=== PATIENT | female | born 1930 | race Caucasian/White ===

== ENCOUNTER → 2018-01-28 | Outpatient (CLI) | payer MEDICARE ==
[~2018-01-28] MED LIST: AC500T PO; ALBU8.5H2 IH; ALLP100T PO; ALPR-557 PO; ALPR.25T PO; AMLO10TA4 PO; AMLO1CAP31; AMLO5TAB2 PO; ASPI-266 PO; ASPI-587 PO; ASPI-86 PO; CHOL10002 PO; CIPR500T78 PO; CLC500CT PO; DCS100C PO; EZET10TA5; FLUT1DIS26 IH; FLUT1DIS3 IH; FURO20TA4 PO; HYDR-2854 PO; HYDR-2856 PO; HYDR-3583 PO; IBP200T PO; LOSA1TAB20 PO; LOSA50TA6 PO; MAGN250T27 PO; MAGN250T7 PO; MELO15TA14 PO; MULT-974 PO; NF-TRA/ACE PO; OMEP20CA12 PO; PRAV10TA23; PRD20T PO; PRED10TA PO; PRV20T PO; SCR1T1 PO; TRIA15CR TOP; TRIA1CAP4; WRF10T PO; [UNRECOGNIZED DRUG - CODE] PO
== END ==
LOC: RT 03:09
PROVIDERS: ATTEND Internal Medicine
DX: R06.2 Wheezing (principal)
CPT/HCPCS: 94761

== ENCOUNTER → 2018-02-16 | Outpatient (CLI) | payer MEDICARE ==
[~2018-02-16] VITALS: Ht 152.4 cm; Wt 77.6 kg
[~2018-02-16] MED LIST changes: +CATHETER FLUSH 10 ML SYR IV PRN; +REGADENOSON 0.4 MG/5 ML SYR (LEXISCAN) IV ONE
[2018-02-16 09:03] VITALS: BP 128/59
[2018-02-16 09:15] VITALS: BP 153/63
--- NOTE | 2018-02-16 15:47 | STRESS TEST ---
DATE OF SERVICE: 02/16/2018 LEXISCAN MYOVIEW STRESS TEST REPORT Baseline heart rate 63. Baseline blood pressure 128/59. Baseline EKG sinus rhythm with no ischemic changes. In summary, the patient was injected with 10.61 mCi of technetium-99 Myoview and the resting images were obtained. Then, the patient received 0.4 mg of Lexiscan followed by 32.2 mCi of technetium-99 Myoview. Throughout the test, there were no EKG changes. The resting and stress images were reviewed and compared in the short axis, horizontal long axis, and vertical long axis views. Review of the images showed breast attenuation with decreased uptake involving the mid to apical anterior wall and anterior septum with mild reversibility. SSS is 5, SDS 3, TID value 1.06. On the gated images, the left ventricle appeared to be in normal size with normal contractility. Calculated ejection fraction 63%. CONCLUSION: 1. The patient tolerated Lexiscan well. 2. Breast attenuation with mild ischemia involving the mid to apical anterior wall and anterior septum. 3. Normal left ventricular size with normal contractility. Calculated ejection fraction 63%. Job ID: [id number] DocumentID: [id number] Dictated Date: 02/16/2018 15:13:44 [employer] Date: 02/16/2018 15:29:50 Dictated By: ELO HOLBROOK MD
== END ==
LOC: CARD 07:15
PROVIDERS: ATTEND Internal Medicine Cardiovascular Disease
DX: R07.89 Other chest pain (principal); I25.10 Atherosclerotic heart disease of native coronary artery without angina pectoris; E78.5 Hyperlipidemia, unspecified; I10 Essential (primary) hypertension
CPT/HCPCS: 78452; 93017

== ENCOUNTER 2018-03-08 05:34 | Outpatient (CLI) | payer MEDICARE ==
[~2018-03-08] VITALS: Ht 152.4 cm; Wt 77.6 kg
[~2018-03-08 05:34] MED LIST changes: -CATHETER FLUSH 10 ML SYR IV PRN; -REGADENOSON 0.4 MG/5 ML SYR (LEXISCAN) IV ONE
[2018-03-08] MEDS ORDERED: RT-ALBUINH IH (13:40)
[2018-03-08] MEDS ORDERED: ASPI-983 PO (13:40)
[2018-03-08] MEDS ORDERED: ALPR0.5T7 PO (13:40)
[2018-03-08] MEDS ORDERED: AMLO5TAB2 PO (13:40)
[2018-03-08] MEDS ORDERED: MAGN250T13 PO (13:45)
[2018-03-08] MEDS ORDERED: RANI150T90 PO (13:45)
[2018-03-08] MEDS ORDERED: PRAV20TA3 PO (13:45)
[2018-03-08] MEDS ORDERED: FLUT1DIS26 IH (13:45)
[2018-03-08] MEDS ORDERED: LOSA50TA36 PO (13:45)
[2018-03-08] MEDS ORDERED: MELO15TA39 PO (13:45)
[2018-03-15] MEDS ORDERED: PANT40TA2 PO (08:48)
[2018-03-15] MEDS ORDERED: SUCR1TAB36 PO (08:48)
== END 2018-03-08 13:48 ==
LOC: PREOP 05:34
PROVIDERS: ATTEND Surgery
DX: Z01.818 Encounter for other preprocedural examination (principal); K21.9 Gastro-esophageal reflux disease without esophagitis; R13.10 Dysphagia, unspecified

== ENCOUNTER 2018-04-19 05:58 | Outpatient (CLI) | payer MEDICARE ==
[~2018-04-19] VITALS: Ht 152.4 cm; Wt 77.6 kg
[~2018-04-19 05:58] MED LIST changes: +ALPR0.5T7 PO; +ASPI-983 PO; +LOSA50TA36 PO; +MAGN250T13 PO; +MELO15TA39 PO; +PANT40TA2 PO; +PRAV20TA3 PO; +RANI150T90 PO; +RT-ALBUINH IH; +SUCR1TAB36 PO
[2018-04-19] MEDS ORDERED: PANT40TA3 PO (16:23)
== END 2018-04-19 16:25 ==
LOC: PREOP 05:58
PROVIDERS: ATTEND Surgery
DX: Z01.818 Encounter for other preprocedural examination (principal); K25.9 Gastric ulcer, unspecified as acute or chronic, without hemorrhage or perforation

== ENCOUNTER 2018-04-26 09:39 | Day surgery (SDC) | payer MEDICARE ==
[~2018-04-26] VITALS: Ht 152.4 cm; Wt 77.6 kg
[~2018-04-26 09:39] MED LIST changes: +PANT40TA3 PO
--- OUTSIDE RECORDS SUMMARY | 2018-04-26 09:45 | XMS REPORT | Clinical Summary ---
Author Author User, Addep[facility] Organization [facility] Address Unknown Phone Unavailable Allergies, Adverse Reactions, Alerts Allergy Name Reaction Description Start Date Severity Status Provider PERCOCET Gastrointestinal problems, e.g., nausea, vomiting, diarrhea Critical Active Halle Dejesus VIOXX Respiratory problems, e.g., wheezing Critical Active Halle Dejesus CODEINE Gastrointestinal problems, e.g., nausea, vomiting, diarrheavomited up foam 1998 Critical Active Halle Dejesus Conditions or Problems Problem Name Problem Code Onset Date Status Entry Date Provider Comment Standard Description Annotate CHEST PAIN, RECURRENT 786.50 Resolved Halle Dejesus Unspecified chest pain OBESITY 278.00 Resolved Halle Dejesus Obesity, unspecified HYPERCHOLESTEROLEMIA 272.0 Active Halle Dejesus Pure hypercholesterolemia HYPERTENSION 401.1 1989 Refinement Halle Dejesus Benign essential hypertension HYPERTENSION, BENIGN ESSENTIAL, SEVERE 401.1 1989 Refinement Halle Dejesus Benign essential hypertension HYPERTENSION, BENIGN ESSENTIAL, CONTROLLED 401.1 1989 Active Halle Dejesus Benign essential hypertension REACTIVE AIRWAY DISEASE 493.90 Resolved Halle Dejesus Asthma, unspecified TOBACCO USE, QUIT V15.82 Resolved Halle Dejesus Personal history of tobacco use LUMBAGO 724.2 Resolved Halle Dejesus Lumbago ULCER, PEPTIC 533.90 Resolved Halle Dejesus Peptic ulcer of unspecified site, unspecified as acute or chronic, without mention of hemorrhage or perforation, without mention of obstruction BACK STRAIN, LUMBAR 847.2 Resolved Halle Dejesus Lumbar sprain CORONARY ARTERY DISEASE 414.00 Active Halle Dejesus Coronary atherosclerosis of unspecified type of vessel, creek or graft stent LAD 11/25 CHRONIC OBSTRUCTIVE PULMONARY DISEASE 496 Active Halle Dejesus Chronic airway obstruction, not elsewhere classified reversed w/bronchodilator MUSCLE CRAMPS 729.82 Resolved Halle Dejesus Cramp of limb RHABDOMYOLYSIS 728.89 Resolved Halle Dejesus Other disorder of muscle, ligament, and fascia MUSCLE PAIN 729.1 Resolved Halle Dejesus Myalgia and myositis, unspecified CONTUSION 924.9 Resolved Halle Dejesus Contusion of unspecified site RUE CONJUNCTIVITIS 372.30 Resolved Halle Dejesus Conjunctivitis, unspecified EYE PAIN, RIGHT 379.91 Resolved Halle eDjesus Pain in or around eye OTITIS MEDIA 382.9 Resolved Halle Dejesus Unspecified otitis media L>R OM, ACUTE SEROUS 381.01 Resolved Halle Dejesus Acute serous otitis media EAR PAIN, BILATERAL 388.70 Resolved Halle Dejesus Otalgia, unspecified DIZZINESS 780.4 Resolved Halle Dejesus Dizziness and giddiness BRONCHITIS 490 Resolved Halle Dejesus Bronchitis, not specified as acute or chronic COUGH 786.2 Resolved Halle Dejesus Cough SINUS CONGESTION 478.1 Resolved Halle Dejesus Other diseases of nasal cavity and sinuses RHINITIS 472.0 Resolved Halle Dejesus Chronic rhinitis DERMATITIS 692.9 Resolved Halle Dejesus Contact dermatitis and other eczema, unspecified cause left upper back ABDOMINAL PAIN, RECURRENT 789.00 Resolved Halle Dejesus Abdominal pain, unspecified site ASTHMA NOS W/ACUTE EXACERBATION 493.92 Resolved Halle Dejesus Asthma, unspecified with (acute) exacerbation ANKLE PAIN, LEFT 719.47 Resolved Halle Dejesus Pain in joint involving ankle and foot BRONCHITIS 490 Resolved Halle Dejesus Bronchitis, not specified as acute or chronic DYSPNEA 786.09 Active Halle Dejesus Other dyspnea and respiratory abnormality ESOPHAGITIS, ACUTE 530.12 Resolved Halle Dejesus Acute esophagitis DYSPHAGIA 787.2 Resolved Halle Dejesus Dysphagia SINUS CONGESTION 478.1 Resolved Halle Dejesus Other diseases of nasal cavity and sinuses URI 465.9 Resolved Halle Dejesus Acute upper respiratory infections of unspecified site ANXIETY 300.00 Resolved Halle Dejesus Anxiety state, unspecified ABDOMINAL PAIN, ACUTE 789.00 Resolved Halle Dejesus Abdominal pain, unspecified site RENAL INSUFFICIENCY 588.9 Active Halle Dejesus Unspecified disorder resulting from impaired renal function DIVERTICULOSIS, COLON 562.10 Resolved Halle Dejesus Diverticulosis of colon (without mention of hemorrhage) HIP PAIN 719.45 Resolved Halle Dejesus Pain in joint involving pelvic region and thigh left ARTHRITIS V13.4 Active Halle Dejesus Personal history of arthritis BOWEL DISEASE NOS 569.42 Resolved Halle Dejesus Anal or rectal pain DEPRESSION 296.00 Resolved Halle Dejesus Bipolar I disorder, single manic episode, unspecified SCIATICA, LEFT 724.3 Resolved Halle Dejesus Sciatica FUNGAL DERMATITIS 111.9 Resolved Halle Dejesus Dermatomycosis, unspecified ESOPHAGEAL DISORDER 530.9 Resolved Halle Dejesus Unspecified disorder of esophagus FLANK PAIN, RIGHT 789.09 Resolved Halle Dejesus Abdominal pain, other specified site; multiple sites CHEST PAIN 786.5 Resolved Halle Dejesus Chest pain VACCINE AGAINST STREPTOCOCCUS PNEUMONIAE V03.82 Resolved Halle Dejesus Need for prophylactic vaccination against Streptococcus pneumoniae [pneumococcus] OTITIS EXTERNA 380.10 Resolved Halle Dejesus Infective otitis externa, unspecified FACIAL PAIN 784.0 Resolved Halle Dejesus Headache HEADACHE 784.0 Resolved Halle Vicki Dejesus Headache BRONCHITIS 490 Resolved Halle Dejesus Bronchitis, not specified as acute or chronic CONJUNCTIVITIS 372.30 Resolved Halle Dejesus Conjunctivitis, unspecified URINARY FREQUENCY 788.41 Resolved Halle Vicki Dejesus Urinary frequency DIARRHEA, ACUTE 787.91 Resolved Halle Dejesus Diarrhea PNEUMONIA 486 Resolved Halle Dejesus Pneumonia, organism unspecified PLEURISY 511.0 Resolved Halle Dejesus Pleurisy without mention of effusion or current tuberculosis UTI 599.0 Resolved Halle Dejesus Urinary tract infection, site not specified COUGH 786.2 Resolved Halle eDjesus Cough CHEST PAIN, ATYPICAL 786.59 Resolved Halle Dejesus Other chest pain SHOULDER PAIN 719.41 Resolved Halle Dejesus Pain in joint involving shoulder region 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 Halle Dejesus Adhesive capsulitis of shoulder UNSPECIFIED VITAMIN D DEFICIENCY 268.9 Active Halle Dejesus Unspecified vitamin D deficiency DYSPHAGIA PHARYNGOESOPHAGEAL PHASE 787.24 Resolved Halle Dejesus Dysphagia, pharyngoesophageal phase MUSCLE PAIN 729.1 Resolved Halle Dejesus Myalgia and myositis, unspecified GOUT 274.9 Active Halle Dejesus Gout, unspecified GANGLION CYST 727.43 Resolved Halle Dejesus Ganglion, unspecified CANDIDIASIS OF UNSPECIFIED SITE 112.9 Resolved Halle Dejesus Candidiasis of unspecified site KNEE PAIN 719.46 Resolved Halle Dejesus Pain in joint involving lower leg right BENIGN POSITIONAL VERTIGO 386.11 Inactive Halle Dejesus Benign paroxysmal positional vertigo DYSPHAGIA PHARYNGOESOPHAGEAL PHASE 787.24 Resolved Halle Dejesus Dysphagia, pharyngoesophageal phase DYSPNEA 786.09 Active Halle Dejesus Other dyspnea and respiratory abnormality 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 Halle Dejesus Atherosclerosis of creek arteries of the extremities with intermittent claudication URINARY 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 Halle Dejesus Retention of urine, unspecified Medication List Medication Instructions Start Date Stop Date Generic Name ND Status Provider Patient Instruction ALLOPURINOL 100 MG TAB 1 PO BID ALLOPURINOL 14308862029 Active Halle Dejesus PREDNISONE 10 MG TAB 2 PO at one time for 3 days then 1 po daily for 4 days PREDNISONE 36755286577 No Longer Active Jazzmine [place] HYDROXYZINE HCL 25 MG TAB 1 po Q 6 hrs prn HYDROXYZINE HCL 73517401505 Active Jazzmine [place] PREDNISONE 20 MG TAB 2 pills at once for 2 days then 1 pill daily for 5 days PREDNISONE 05994236771 No Longer Active Halle Dejesus MECLIZINE HCL 25 MG TAB 1 PO Q6hrs prn dizziness MECLIZINE HCL 10682075055 No Longer Active Halle Dejesus ATARAX 25 MG TAB 1 po QHS prn itching HYDROXYZINE HCL No Longer Active Halle Dejesus ALLOPURINOL 100 MG TAB 1 PO Daily ALLOPURINOL 44826146503 No Longer Active Halle Dejesus KENALOG 0.1 % CREA apply to affected areas BID TRIAMCINOLONE ACETONIDE No Longer Active Jazzminetrent [place] CALTRATE 600 PLUS-VIT D 600-200 MG-IU TABS 1 PO BID CALCIUM-VITAMIN D Active Halle Dejesus CALCITRIOL 0.25 MCG CAPS 1 PO Daily CALCITRIOL 98669307978 No Longer Active Halle Dejesus TRIAMCINOLONE ACETONIDE 0.1 % CREA Apply daily prn to affected areas TRIAMCINOLONE ACETONIDE 88439615242 No Longer Active Halle Dejesus LORTAB 5 5-500 MG TABS 1 to 2 PO Q6hrs prn ACETAMINOPHEN- HYDROCODONE 95862822214 No Longer Active Halle Dejesus IBUPROFEN 200 MG TAB 2 PO BID PRN IBUPROFEN 79705096853 No Longer Active Halleluz Dejesus TYLENOL 500 MG TABS 1 PO Q6hrs prn ACETAMINOPHEN 30862888451 Active Halle Vicki Dejesus KENALOG 0.1 % CREA apply daily as needed to effected areas 04/03 TRIAMCINOLONE ACETONIDE No Longer Active Halleluz Dejesus HYDROXYZINE HCL 10 MG TABS 1 PO QHS prn itching HYDROXYZINE HCL 56190847389 No Longer Active Halle Vicki Dejesus ZETIA 10 MG TABS 1 PO QD EZETIMIBE 03710988902 No Longer Active Halle Vicki Dejesus NYSTATIN 334984 UNIT/GM POWD Apply to affected areas BID over cream. NYSTATIN 26830016215 No Longer Active Halle Vicki Dejesus NYSTATIN 328697 UNIT/GM CREA Apply to affected areas BID and apply powder over cream. NYSTATIN 12374938150 No Longer Active Halleluz Dejesus TESSALON 200 MG CAPS 1 PO TID prn cough BENZONATATE 57230341429 No Longer Active Halleluz Dejesus AUGMENTIN 500-125 MG TAB 1 PO BID AMOXICILLIN-POT CLAVULANATE 75175148991 No Longer Active Halleluz Dejesus OMEPRAZOLE 20 MG CPDR 1 PO daily OMEPRAZOLE 56447580807 Active Jazzmine [place] COZAAR 50 MG TAB 1 po daily [place] POTASSIUM 08072288005 Active Jazzmine [place] TRIAMTERENE-HCTZ 37.5-25 MG CAPS 1 cap po daily TRIAMTERENE- HCTZ 24644399588 No Longer Active Halle Vicki Dejesus LASIX 20 MG TAB 1 PO QD prn swelling FUROSEMIDE 85449204810 Active Halle Vicki Dejesus MUCINEX 600 MG TB12 1 PO BID for 5 days GUAIFENESIN 92052891706 No Longer Active Halle Vicki Dejesus PREDNISONE 20 MG TAB 2 pills at once for 2 days then 1 pill daily for 2 days PREDNISONE 00197900320 No Longer Active Halle Vicki Dejesus BIAXIN 500 MG TAB 1 PO BID CLARITHROMYCIN 45782547680 No Longer Active Halle Vicki Dejesus ADVAIR DISKUS 250-50 MCG/DOSE MISC 1 puff BID FLUTICASONE- SALMETEROL 57204766124 Active Halle Vicki Dejesus PROAIR HFA 108 (90 BASE) MCG/ACT AERS 2 puff Q4 hrs prn wheezing ALBUTEROL SULFATE 93465231109 Active Halle Vicki Dejesus OMEPRAZOLE 20 MG CPDR 1 PO daily OMEPRAZOLE 03055434354 No Longer Active Halle Vicki Dejesus ULTRAM 50 MG TAB 1 PO TID with meal TRAMADOL HCL 18953380199 No Longer Active Halle Vicki Dejesus LORTAB 5 5-500 MG TABS 1 PO QHS ACETAMINOPHEN- HYDROCODONE 00048018686 No Longer Active Halle Vicki Dejesus DARVON 65 MG CAPS 1 PO Q6hrs prn Pain PROPOXYPHENE HCL 94691314071 No Longer Active Halle Vicki Dejesus PREDNISONE 20 MG TAB 2 pills at once for 2 days then 1 pill daily for 2 days PREDNISONE 80962172576 No Longer Active Halle Vicki Dejesus MOBIC 15 MG TABS 1 PO Daily MELOXICAM 82691689281 Active Jazzmine [place] PREDNISONE 20 MG TAB 2 pills at once for 2 days then 1 pill daily for 2 days PREDNISONE 33115298744 No Longer Active Halle Vicki Dejesus AUGMENTIN 500-125 MG TAB 1 PO BID AMOXICILLIN-POT CLAVULANATE 43788896959 No Longer Active Halle Vicki Dejesus TESSALON 200 MG CAPS 1 PO TID prn cough BENZONATATE 39862125145 No Longer Active Halleluz HA[employer]ES[employer] NASAL SPRAY (DEXAMETHASONE, GENTAMICIN, SALINE) 2 puffs each nostril TID for [address] FARFAN NASAL SPRAY ( DEXAMETHASONE, GENTAMICIN, SALINE) No Longer Active Halleluz Dejesus MUCINEX 600 MG TB12 1 PO BID for 5 days GUAIFENESIN 49060631548 No Longer Active Halle Vicki Dejesus BIAXIN 500 MG TAB 1 PO BID CLARITHROMYCIN 43379988212 No Longer Active Halleluz Dejesus LOTRISONE 0.05-1 % CREAM apply to affected areas BID CLOTRIMAZOLE-BETAMETHASONE 05086203504 No Longer Active Halle Vicki Dejesus KENALOG 0.1 % CREA apply to affected areas BID TRIAMCINOLONE ACETONIDE No Longer Active Halleluz Dejesus VITAMIN D 1000 UNIT CAPS 1 PO Daily CHOLECALCIFEROL 24870227130 Active Halleluz Dejesus PYRIDIUM 200 MG TAB 1 PO TID prn urinary urgency PHENAZOPYRIDINE HCL 11463716052 No Longer Active Halle Dejesus CIPRO 250 MG TABS 1 PO BID CIPROFLOXACIN HCL 46426375381 No Longer Active Halleluz Dejesus HYCODAN 5-1.5 MG/5ML SYRP 1 teaspoon PO Q6hrs prn cough HYDROCODONE-HOMATROPINE 22694794890 No Longer Active Halleluz Dejesus IMODIUM A-D TABS as directed LOPERAMIDE HCL TABS 26763822769 No Longer Active Halleluz Dejesus HYDROCODONE-GG EXPECTORANT 5-100 MG/5ML SYRP 1 teaspoon PO Q4hrs prn cough HYDROCODONE-GUAIFENESIN 94060031421 No Longer Active Halle Vicki Dejesus FISH OIL 1000 MG CAPS 1 po daily OMEGA-3 FATTY ACIDS 23803079050 No Longer Active Halle Vicki Dejesus TESSALON 200 MG CAPS 1 PO TID prn cough BENZONATATE 17812039333 No Longer Active Halle Vicki Dejesus BIAXIN 500 MG TAB 1 PO BID for 7 days CLARITHROMYCIN 68522281765 No Longer Active Halle Vicki Dejesus PYRIDIUM 200 MG TABS 1 PO TID PHENAZOPYRIDINE HCL 13438433723 No Longer Active Linda Tarik CIPRO 250 MG TABS 1 PO daily CIPROFLOXACIN HCL 30821260484 No Longer Active Linda Montanez FLOXIN OTIC 0.3 % SOLN 2 drops right eye Q6hrs for 7 days OFLOXACIN 66598851789 No Longer Active Halle Vicki Dejesus TESSALON 200 MG CAPS 1 PO TID prn cough BENZONATATE 22546908629 No Longer Active Halle Vicki Dejesus BIAXIN XL PAC 500 MG TB24 2 pills at same time daily for 7 days CLARITHROMYCIN 30559811968 No Longer Active Halle Vicki Dejesus ALPRAZOLAM 0.25 MG TABS 1 po q 6 hrs. prn ALPRAZOLAM 45911133233 Active Halle Vicki Dejesus OCUFLOX 0.3 % SOLN 2 drops left ear TID for 7 days OFLOXACIN 17230826965 No Longer Active Halle Vicki Dejesus BENAZEPRIL HCL 10 MG TABS 1 PO daily BENAZEPRIL HCL 18621242688 No Longer Active Jazzmine [place] NORVASC 5 MG TAB 1 PO QD AMLODIPINE BESYLATE 33536484370 Active Jazzmine [place] ADVAIR DISKUS 250-50 MCG/DOSE MISC 1 Puff BID FLUTICASONE-SALMETEROL 14370367077 No Longer Active Halle Vicki Dejesus ALPRAZOLAM 0.25 MG TABS 1 po q 6 hrs. prn ALPRAZOLAM 96139980299 No Longer Active Halle Vicki Dejesus LORTAB 5 5-500 MG TABS 1 to 2 PO Q6hrs prn ACETAMINOPHEN-HYDROCODONE 98378195950 No Longer Active Halle Vicki Dejesus FLUOCINONIDE 0.05 % CREA Apply to affected areas BID for 7 days FLUOCINONIDE 70471440079 No Longer Active Halle Vicki Dejesus KETOCONAZOLE 2 % CREA Apply to affected areas BID for 7 days 2006 KETOCONAZOLE 83283996000 No Longer Active Halle Vicki Dejesus XANAX 0.25 MG TABS 1 tab PO prn ALPRAZOLAM 38303132307 No Longer Active Halle Vicki Dejesus KCL HERBAL 7.3 MEQ 1 PO QD OTC KCL HERBAL 7.3 MEQ No Longer Active Halle Vicki Dejesus PRAVACHOL 20 MG TABS 1 PO daily PRAVASTATIN SODIUM 74550866542 Active Jazzminetrent GONGAIR DISKUS 100-50 MCG/DOSE MISC 1 puff bid prn FLUTICASONE-SALMETEROL 68041490061 No Longer Active Halleluz Dejesus NEXIUM 40 MG CPDR ESOMEPRAZOLE MAGNESIUM 19586316970 No Longer Active Halleluz Dejesus ALBUTEROL SULFATE FOR SOLN 1 TX Q6hrs prn ALBUTEROL SULFATE FOR SOLN 13208299353 No Longer Active Halle Vicki Dejesus PROTONIX 40 MG TBEC 1 po qd PANTOPRAZOLE SODIUM 11325312251 No Longer Active Halle Vicki Dejesus CARAFATE 1 GM TABS 1 po 1 hr before meals, 2hr before other meds, and at bedtime SUCRALFATE 57943855978 No Longer Active Halle Vicki Dejesus PREDNISONE 20 MG TABS 3 for 2 days, 2 for 2 days, 1 for 2 days PREDNISONE 97703202081 No Longer Active Halle Vicki Dejesus NEXIUM 40 MG CPDR 1 PO QD ESOMEPRAZOLE MAGNESIUM 40442528491 No Longer Active Halle Vicki Dejesus ADVAIR DISKUS 250-50 MCG/DOSE MISC 1 puff BID FLUTICASONE-SALMETEROL 61410697506 No Longer Active Halle Vicki Dejesus DOXYCYCLINE HYCLATE 100 MG CAPS 1 po BID DOXYCYCLINE HYCLATE 17999968532 No Longer Active Halle Vicki Dejesus ASPIRIN 81 MG CHEW TAB 1 PO QD ASPIRIN 18950713078 Active Halle Vicki Dejesus CODICLEAR DH 5-100 MG/5ML SYRP 5 cc q 4-6 hrs. prn HYDROCODONE-GUAIFENESIN 19915723902 No Longer Active Halle Vicki Dejesus PALGIC 4 MG TABS 1 po daily CARBINOXAMINE MALEATE 51121438018 No Longer Active Halle Vicki Dejesus NASONEX 50 MCG/ACT SUSP 1 squirt daily each nostril MOMETASONE FUROATE 17849913914 No Longer Active Halle Vicki Dejesus CALCIUM 600 MG TABS 1 po BID CALCIUM 78402549592 No Longer Active Halle Vicki Dejesus CEFZIL 250 MG TAB 1 PO BID CEFPROZIL 08900171472 No Longer Active Halle Vicki Dejesus TOBREX 0.3 % OINT Q4hrs TOBRAMYCIN SULFATE (OPHTH) 78765412567 No Longer Active Halle Vicki Dejesus PROTONIX 40 MG TBEC 1 po qd PANTOPRAZOLE SODIUM 52065347568 No Longer Active Halle Vicki Dejesus PLAVIX 75 MG TABS CLOPIDOGREL BISULFATE 97221611229 No Longer Active Halle Vicki Dejesus LOTREL 5-10 MG CAP 1 PO QD AMLODIPINE BESY-BENAZEPRIL HCL 28960631480 No Longer Active Jazzmine [place] PRAVACHOL 40 MG TABS PRAVASTATIN SODIUM 67991583965 No Longer Active Halle Vicki Dejesus NORVASC 5 MG TAB 1 PO QD AMLODIPINE BESYLATE 08735147434 No Longer Active Halle Vicki Dejesus DILTIAZEM HCL CR 180 MG CP24 DILTIAZEM HCL 69688861211 No Longer Active Halle Vicki Dejesus LIPITOR 20 MG TABS 1 po daily ATORVASTATIN CALCIUM 47648172038 No Longer Active Halle Vicki Dejesus NEXIUM 40 MG CPDR 1 PO QD(30 samples) ESOMEPRAZOLE MAGNESIUM 74654023916 No Longer Active Halle Vicki Dejesus PROTONIX 40 MG TBEC 1 po daily PANTOPRAZOLE SODIUM 91536991739 No Longer Active Halle Vicki Dejesus IBUPROFEN 200 MG TABS 2-3 tabs at HS IBUPROFEN 07710721465 No Longer Active Halle Vicki Dejesus SINGULAIR 10 MG TABS pt. no longer takes MONTELUKAST SODIUM 56903097419 No Longer Active Halle Vicki Dejesus COMBIVENT 103-18 MCG/ACT AERO pt. no longer takes ALBUTEROL-IPRATROPIUM 68175695505 No Longer Active Halle Vicki Dejesus FLEXERIL 10 MG TAB 1 PO TID prn CYCLOBENZAPRINE HCL 70641467079 No Longer Active Halle Vicki Dejesus DILAUDID 2 MG TABS 1 PO BID prn HYDROMORPHONE HCL 58569223561 No Longer Active Halle Vicki Oleg MULTIVITAMINS TABS 1 po daily (weight control) MULTIPLE VITAMIN 86198294447 Active Halle Deejsus Immunizations Vaccine Administration Date Value Standard Description Comvax, combined Hemophilus influenza B and Hepatitis B virus vaccine Done Haemophilus influenzae type b conjugate and Hepatitis B vaccine Influenza vaccine given done influenza virus vaccine, unspecified formulation Influenza vaccine given DONE influenza virus vaccine, unspecified formulation pneumococcal immunization administered Has had 2 doses pneumococcal polysaccharide vaccine, 23 valent Vital Signs Date Name Value Unit Range Description blood pressure, diastolic - 8462-4 74 mm[Hg] BP liao blood pressure, systolic - 8480-6 156 mm[Hg] BP sys pulse rate E&M - 8867-4 72 /min Heart rate respiratory rate E&M - 9279-1 14 /min Resp rate temperature E&M 98.6 [degF] Body temperature weight E&M - 3141-9 184 [lb_av] Weight Measured blood pressure, diastolic - 8462-4 79 mm[Hg] BP liao blood pressure, systolic - 8480-6 145 mm[Hg] BP sys height E&M - 8302-2 62 [in_us] Bdy height pulse rate E&M - 8867-4 78 /min Heart rate respiratory rate E&M - 9279-1 14 /min Resp rate temperature E&M 98.6 [degF] Body temperature weight E&M - 3141-9 181 [lb_av] Weight Measured blood pressure, diastolic - 8462-4 80 mm[Hg] BP liao blood pressure, systolic - 8480-6 130 mm[Hg] BP sys pulse rate E&M - 8867-4 74 /min Heart rate respiratory rate E&M - 9279-1 14 /min Resp rate weight E&M - 3141-9 180 [lb_av] Weight Measured blood pressure, diastolic - 8462-4 82 mm[Hg] BP liao blood pressure, systolic - 8480-6 140 mm[Hg] BP sys pulse rate E&M - 8867-4 78 /min Heart rate respiratory rate E&M - 9279-1 14 /min Resp rate temperature E&M 98.6 [degF] Body temperature weight E&M - 3141-9 185 [lb_av] Weight Measured blood pressure, diastolic - 8462-4 74 mm[Hg] BP liao blood pressure, systolic - 8480-6 132 mm[Hg] BP sys pulse rate E&M - 8867-4 70 /min Heart rate respiratory rate E&M - 9279-1 14 /min Resp rate weight E&M - 3141-9 182 [lb_av] Weight Measured Diagnostic Results Date Name Value Unit Range Description Clinical Lists Update: CBC,CMP,Chol,Trig,Ferritin - Chemistry Estimated Glomerular Filtration Rate (calc) 27 mL/min/1.73m2 glucose, plasma fasting 99 mg/dL albumin, serum 4.0 g/dL alkaline phosphatase, serum 95 U/L urea nitrogen, blood 43 mg/dL calcium, serum 9.2 mg/dL chloride, serum 108 mmol/L cholesterol, serum 179 mg/dL carbon dioxide, venous blood 25.0 mmol/L creatinine, serum 1.9 mg/dL ferritin, serum 21.9 ng/mL potassium, serum 5.5 mmol/L protein, total, serum 6.3 g/dL aspartate aminotransferase (SGOT), serum 14 U/L alanine aminotransferase (SGPT), serum 10 U/L anion gap, serum 13 sodium, serum 134 mmol/L triglyceride, serum, fasting 156 mg/dL bilirubin, serum, total 0.8 mg/dL alanine aminotransferase (SGPT), serum 12 U/L aspartate aminotransferase (SGOT), serum 20 U/L protein, total, serum 6.8 g/dL potassium, serum 5.2 mmol/L ferritin, serum 24.3 ng/mL creatinine, serum 1.9 mg/dL carbon dioxide, venous blood 21.0 mmol/L cholesterol, serum 197 mg/dL chloride, serum 105 mmol/L calcium, serum 9.3 mg/dL urea nitrogen, blood 35 mg/dL alkaline phosphatase, serum 101 U/L albumin, serum 4.3 g/dL Estimated Glomerular Filtration Rate (calc) 27 mL/min/1.73m2 glucose, plasma fasting 92 mg/dL anion gap, serum 12 sodium, serum 139 mmol/L triglyceride, serum, fasting 145 mg/dL bilirubin, serum, total 0.8 mg/dL Clinical Lists Update: CBC,CMP,Chol,Trig,Ferritin - Hematology leukocyte count, blood 6.1 10*3/mm3 mean corpuscular volume, RBC 85 fL red blood cell distribution width 15.8 % hemoglobin, blood 10.1 g/dL platelet count 308 10*3/mm3 erythrocyte (RBC) count 3.91 10*6/mm3 hematocrit, blood 32 % mean corpuscular volume, RBC 82 fL red blood cell distribution width 15.5 % hematocrit, blood 33 % hemoglobin, blood 10.1 g/dL platelet count 304 10*3/mm3 erythrocyte (RBC) count 3.85 10*6/mm3 leukocyte count, blood 7.3 10*3/mm3 Clinical Lists Update: CBC,CMP,FLP DISCHARGE LABS - Chemistry Estimated Glomerular Filtration Rate (calc) 26 mL/min/1.73m2 glucose, plasma fasting 93 mg/dL albumin, serum 3.6 g/dL alkaline phosphatase, serum 93 U/L urea nitrogen, blood 39 mg/dL calcium, serum 9.0 mg/dL chloride, serum 110 mmol/L cholesterol, serum 171 mg/dL very low density lipoproteins 30 mg/dL sodium, serum 140 mmol/L triglyceride, serum, fasting 148 mg/dL bilirubin, serum, total 0.5 mg/dL alanine aminotransferase (SGPT), serum 12 U/L aspartate aminotransferase (SGOT), serum 14 U/L protein, total, serum 5.9 g/dL potassium, serum 4.7 mmol/L LDL cholesterol, serum 98 mg/dL HDL cholesterol, serum 47 mg/dL creatinine, serum 1.85 mg/dL carbon dioxide, venous blood 22 mmol/L Clinical Lists Update: CBC,CMP,FLP DISCHARGE LABS - Hematology hemoglobin, blood 8.4 g/dL platelet count 267 10*3/mm3 erythrocyte (RBC) count 3.16 10*6/mm3 leukocyte count, blood 9.6 10*3/mm3 mean corpuscular volume, RBC 83 fL red blood cell distribution width 15.0 % hematocrit, blood 26 % Clinical Lists Update: CBC,CMP,FLP,TSH,FREE T4,FERRITIN - Chemistry Estimated Glomerular Filtration Rate (calc) 29 mL/min/1.73m2 glucose, plasma fasting 103 mg/dL cholesterol/HDL ratio, serum, percent 3.5 anion gap, serum 12 sodium, serum 139 mmol/L triglyceride, serum, fasting 144 mg/dL bilirubin, serum, total 0.6 mg/dL alanine aminotransferase (SGPT), serum 11 U/L aspartate aminotransferase (SGOT), serum 15 U/L protein, total, serum 6.6 g/dL potassium, serum 4.8 mmol/L LDL cholesterol, serum 90 mg/dL thyroid stimulating hormone, serum 3.66 u[iU]/mL HDL cholesterol, serum 48.0 mg/dL ferritin, serum 47.1 ng/mL creatinine, serum 1.8 mg/dL carbon dioxide, venous blood 26.0 mmol/L cholesterol, serum 167 mg/dL chloride, serum 106 mmol/L calcium, serum 9.3 mg/dL urea nitrogen, blood 40 mg/dL alkaline phosphatase, serum 92 U/L albumin, serum 4.1 g/dL Clinical Lists Update: CBC,CMP,FLP,TSH,FREE T4,FERRITIN - Hematology hemoglobin, blood 10.1 g/dL red blood cell distribution width 15.2 % mean corpuscular volume, RBC 87 fL hematocrit, blood 34 % leukocyte count, blood 6.1 10*3/mm3 erythrocyte (RBC) count 3.86 10*6/mm3 platelet count 271 10*3/mm3 Clinical Lists Update: ER LABS - Chemistry albumin, serum 3.9 g/dL Estimated Glomerular Filtration Rate (calc) 28 mL/min/1.73m2 glucose, plasma fasting 106 mg/dL sodium, serum 134 mmol/L bilirubin, serum, total 1.0 mg/dL alanine aminotransferase (SGPT), serum 9 U/L aspartate aminotransferase (SGOT), serum 15 U/L alkaline phosphatase, serum 99 U/L urea nitrogen, blood 44 mg/dL calcium, serum 8.9 mg/dL carbon dioxide, venous blood 17 mmol/L creatinine, serum 1.73 mg/dL potassium, serum 4.9 mmol/L protein, total, serum 7.1 g/dL chloride, serum 107 mmol/L Clinical Lists Update: ER LABS - Hematology hemoglobin, blood 10.1 g/dL platelet count 293 10*3/mm3 erythrocyte (RBC) count 3.85 10*6/mm3 leukocyte count, blood 10.9 10*3/mm3 mean corpuscular volume, RBC 82 fL red blood cell distribution width 14.7 % hematocrit, blood 32 % Clinical Lists Update: ER LABS - Urinalysis blood in urine (hemoglobin) by dipstick 5+ mucus on urinalysis neg bacteria, urine microscopy Large RBC urine by microscopy none WBC urine on microscopy TNTC {Cells}/[HPF] appearance, urine Clear Yellow protein, urine, semiquantitative (dipstick) 3+ specific gravity, urine 1.015 pH, urine, semiquantitative 5 nitrite, urine, semiquantitative neg ketones, urine, by test strip neg bilirubin, urine neg glucose, urine, semiquantitative neg urobilinogen, urine, semiquantitative (dipstick) normal Office Visit: Dr Dejesus's Check Up: Established Patient Visit - Chemistry anion gap, serum 12 albumin, serum 4.1 g/dL Estimated Glomerular Filtration Rate (calc) 24 mL/min/1.73m2 sodium, serum 135 mmol/L bilirubin, serum, total 0.8 mg/dL alanine aminotransferase (SGPT), serum 11 U/L aspartate aminotransferase (SGOT), serum 15 U/L protein, total, serum 6.6 g/dL potassium, serum 4.9 mmol/L creatinine, serum 2.1 mg/dL carbon dioxide, venous blood 23.0 mmol/L chloride, serum 105 mmol/L calcium, serum 8.9 mg/dL urea nitrogen, blood 40 mg/dL alkaline phosphatase, serum 96 U/L glucose, plasma fasting 76 mg/dL Office Visit: Dr Dejesus's Check Up: Established Patient Visit - Hematology leukocyte count, blood 9.0 10*3/mm3 mean corpuscular volume, RBC 84 fL red blood cell distribution width 14.7 % erythrocyte (RBC) count 3.83 10*6/mm3 erythrocyte sedimentation rate 22 mm/h hematocrit, blood 32 % hemoglobin, blood 10.1 g/dL platelet count 273 10*3/mm3 Office Visit: Dr Dejesus'meg Check Up: Established Patient Visit - Urinalysis blood in urine (hemoglobin) by dipstick neg protein, urine, semiquantitative (dipstick) neg epithelial cells, urine 0-2 /[LPF] hyaline casts, urine none /[LPF] bacteria, urine microscopy trace RBC urine by microscopy none WBC urine on microscopy rare {Cells}/[HPF] appearance, urine Clear Yellow urobilinogen, urine, semiquantitative (dipstick) 0.2 specific gravity, urine 1.010 pH, urine, semiquantitative 5.0 glucose, urine, semiquantitative neg bilirubin, urine neg ketones, urine, by test strip neg nitrite, urine, semiquantitative neg mucus on urinalysis none Encounters Code Encounter Date Provider Facility CPT-85304 Ofc Vst, Est Level III 17:17:59 CDT Halle Dejesus DO, FACP CPT-94306 Ofc Vst, Est Level IV 16:44:01 CDT Halle Dejesus DO, FACP CPT-30604 Ofc Vst, Est Level IV 09:56:06 TUMBLING MACHINE OPERATOR Halle Dejesus DO, FACP CPT-68753 Ofc Vst, Est Level III 11:26:10 CDT Halle Dejesus DO, FACP CPT-68104 Ofc Vst, Est Level III 19:58:58 TUMBLING MACHINE OPERATOR Halle Dejesus DO, FACP CPT-73173 Ofc Vst, Est Level III 21:42:42 CDT Halle Dejesus DO, FACP CPT-51060 Ofc Vst, Est Level III 15:59:11 CDT Halle Dejesus DO, FACP CPT-12657 Ofc Vst, Est Level IV 14:48:01 CDT Halle Dejesus DO, FACP CPT-35186 Ofc Vst, Est Level IV 11:08:03 CDT Halle BRADY CPT-93165 Ofc Vst, Est Level IV 11:21:10 CDT Halle Dejesus DO, FACP CPT-98440 Ofc Vst, Est Level IV 14:27:00 TUMBLING MACHINE OPERATOR Halle Mcmillan Dejesus, DO, FACP CPT-11465 Ofc Vst, Est Level IV 11:07:58 TUMBLING MACHINE OPERATOR Halle Mcmillan Dejesus, DO, FACP CPT-42021 Ofc Vst, Est Level III 15:51:12 CDT Halle Vicki Mcmillan Dejesus, DO, FACP CPT-68514 Ofc Vst, Est Level IV 10:19:24 CDT Halle Vicki Mcmillan Dejesus, DO, FACP CPT-07702 Ofc Vst, Est Level III 11:03:07 CDT Halle Vicki Mcmillan Dejesus, DO, FACP CPT-27989 Ofc Vst, Est Level IV 11:41:49 CDT Halle Vicki Mcmillan Oleg, DO, FACP CPT-25481 Ofc Vst, Est Level IV 10:18:48 TUMBLING MACHINE OPERATOR Halle Mcmillan Dejesus, DO, FACP CPT-82460 Ofc Vst, Est Level IV 10:17:36 CDT Halleluz Mcmillan Dejesus, DO, FACP CPT-20905 Ofc Vst, Est Level IV 14:36:16 CDT Halle Mcmillan Oleg, DO, FACP CPT-82108 Ofc Vst, Est Level IV 14:47:06 CDT Halle Vicki Mcmillan Dejesus, DO, FACP CPT-75726 Ofc Vst, Est Level IV 16:08:37 TUMBLING MACHINE OPERATOR Halle Dejesus [facility] CPT-63178 Ofc Vst, Est Level IV 09:58:23 TUMBLING MACHINE OPERATOR Halle Mcmillan Dejesus, DO, FACP CPT-95856 Ofc Vst, Est Level IV 09:30:43 TUMBLING MACHINE OPERATOR Halle Vicki Dejesus Halle S Dejesus, DO, FACP CPT-88284 Ofc Vst, Est Level V 14:50:31 CDT Halle Vicki Mcmillan Dejesus, DO, FACP CPT-46359 Ofc Vst, Est Level III 11:07:34 CDT Halle Vicki Mcmillan Dejesus, DO, FACP CPT-21116 Ofc Vst, Est Level IV 10:37:31 CDT Halle Vicki Mcmillan Dejesus, DO, FACP CPT-61660 Ofc Vst, Est Level IV 09:30:05 CDT Halle Vicki Mcmillan Dejesus, DO, FACP CPT-67395 Ofc Vst, Est Level IV 11:09:58 CDT Halle Vicki Mcmillan Oleg, DO, FACP CPT-33822 Ofc Vst, Est Level IV 10:11:39 TUMBLING MACHINE OPERATOR Halle Vicki Mcmillan Oleg, DO, FACP CPT-91305 Ofc Vst, Est Level V 16:06:45 TUMBLING MACHINE OPERATOR Halle Vicki Mcmillan Dejesus, DO, FACP CPT-11960 Ofc Vst, Est Level III 13:06:05 TUMBLING MACHINE OPERATOR Halle Mcmillan Dejesus, DO, FACP CPT-21011 Ofc Vst, Est Level III 15:24:44 TUMBLING MACHINE OPERATOR Halle Vicki Mcmillan Oleg, DO, FACP CPT-25131 Ofc Vst, Est Level IV 09:38:45 CDT Halle Vicki Mcmillan Oleg, DO, FACP CPT-77525 Ofc Vst, Est Level III 10:07:58 CDT Halle Vicki Neri S Oleg, DO, FACP CPT-02461 Ofc Vst, Est Level IV 09:50:32 CDT Halle Vicki Mcmillan Oleg, DO, FACP CPT-02075 Ofc Vst, Est Level III 13:45:05 TUMBLING MACHINE OPERATOR Halle Dejesus, DO, FACP CPT-57277 Ofc Vst, Est Level IV 09:38:56 TUMBLING MACHINE OPERATOR Halle Dejesus, DO, FACP CPT-12903 Ofc Vst, Est Level III 10:21:38 CDT Halle Vicki Dejesus, DO, FACP CPT-83073 Ofc Vst, Est Level IV 11:47:09 CDT Halle Vicki Dejesus, DO, FACP CPT-96240 Ofc Vst, Est Level III 13:52:46 CDT Halle Dejesus [facility] CPT-08142 Ofc Vst, Est Level IV 09:24:43 CDT Halle Dejesus [facility] CPT-96210 Ofc Vst, Est Level III 10:45:34 TUMBLING MACHINE OPERATOR Halle Dejesus [facility] CPT-89047 Ofc Vst, Est Level III 09:22:58 TUMBLING MACHINE OPERATOR Halle Dejesus [facility] CPT-24323 Ofc Vst, Est Level III 09:24:03 TUMBLING MACHINE OPERATOR Halle Dejesus [facility] CPT-32947 Ofc Vst, Est Level IV 11:31:52 TUMBLING MACHINE OPERATOR Halle Dejesus [facility] CPT-26966 Ofc Vst, Est Level IV 10:30:21 CDT Halle Dejesus [facility] CPT-35987 Ofc Vst, Est Level IV 10:59:46 TUMBLING MACHINE OPERATOR Halle Dejesus [facility] CPT-66747 Ofc Vst, Est Level IV 12:01:57 TUMBLING MACHINE OPERATOR Halle Dejesus [facility] CPT-19821 Ofc Vst, Est Level IV 09:33:58 CDT Halle Dejesus [facility] CPT-51018 Ofc Vst, Est Level IV 10:43:46 CDT Halle Dejesus [facility] CPT-27552 Ofc Vst, Est Level IV 09:35:52 CDT Halle Dejesus [facility] CPT-42859 Ofc Vst, Est Level IV 12:18:01 TUMBLING MACHINE OPERATOR Halle Dejesus [facility] CPT-48051 Ofc Vst, Est Level III 17:51:31 TUMBLING MACHINE OPERATOR Halle Dejesus [facility] CPT-15881 Ofc Vst, Est Level IV 12:10:07 TUMBLING MACHINE OPERATOR Halle Dejesus [facility] CPT-42457 Ofc Vst, Est Level IV 12:44:30 TUMBLING MACHINE OPERATOR Halle Dejesus [facility] CPT-28426 Ofc Vst, Est Level IV 11:19:06 TUMBLING MACHINE OPERATOR Halle Dejesus [facility] CPT-44220 Ofc Vst, Est Level IV 17:39:18 TUMBLING MACHINE OPERATOR Halle Dejesus [facility] CPT-55205 Ofc Vst, Est Level IV 18:49:33 TUMBLING MACHINE OPERATOR Halle Dejesus [facility] CPT-63730 Ofc Vst, Est Level III 13:03:17 CDT Halle Dejesus [facility] CPT-56132 Ofc Vst, Est Level III 11:18:41 CDT Halle Dejesus [facility] CPT-16902 Ofc Vst, Est Level III 18:35:23 CDT Halle Dejesus [facility] CPT-01794 Ofc Vst, Est Level III 17:35:56 CDT Halle Dejesus [facility] CPT-48110 Ofc Vst, Est Level III 14:32:00 CDT Halle Dejesus [facility] CPT-21259 Ofc Vst, Est Level III 09:50:07 CDT Halle Dejesus [facility] CPT-15909 Ofc Vst, Est Level III 10:22:24 CDT Halle Dejesus [facility] CPT-57908 Ofc Vst, Est Level III 10:40:[address] [facility] CPT-38250 Ofc Vst, Est Level III 10:02:24 TUMBLING MACHINE OPERATOR Halle Dejesus [facility] CPT-62296 Ofc Vst, Est Level III 13:01:39 TUMBLING MACHINE OPERATOR Halle Dejesus [facility] CPT-74307 Ofc Vst, Est Level II 10:46:54 TUMBLING MACHINE OPERATOR Halle Dejesus [facility] CPT-96625 Ofc Vst, New Level IV 11:39:11 TUMBLING MACHINE OPERATOR Halle Dejesus [facility] Procedures Code Procedure Name Date Entry Date Standard Description CPT-G0439 Medicare Annual Wellness Visit 15:48:34 CDT CPT-G8446 E-Prescribing not done due to controlled substance 16:53 :03 CDT CPT-G0439 Medicare Annual Wellness Visit 16:53:03 CDT CPT-G8443 E-Prescribing Medication Sent 19:58:58 TUMBLING MACHINE OPERATOR CPT-G8445 E-Prescribing Not sent due to no medication given 21:42: 42 CDT CPT-G8445 E-Prescribing Not sent due to no medication given 15:59: 11 CDT CPT-G8445 E-Prescribing Not sent due to no medication given 14:48: 01 CDT CPT-93720 Injection, Pneumovax 15:32:21 TUMBLING MACHINE OPERATOR CPT-G8445 E-Prescribing Not sent due to no medication given 13:27: 30 TUMBLING MACHINE OPERATOR CPT-G0438 Medicare Annual Wellness Visit Initial 13:27:30 TUMBLING MACHINE OPERATOR CPT-8446 E-Prescribing not done due to controlled substance 11:09: 58 CDT CPT-45837 Injection, Pneumovax 10:21:38 CDT CPT-61981 EKG w/ Interpretation 08:47:25 TUMBLING MACHINE OPERATOR
[2018-04-26] MEDS ORDERED: LACTATED RINGERS 1,000 ML IV STA (09:46)
[2018-04-26] MEDS ORDERED: LACTATED RINGERS 1,000 ML IV ONE (09:48)
--- OUTSIDE RECORDS SUMMARY | 2018-04-26 09:50 | XMS REPORT | Clinical Summary ---
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 Halle Dejesus Atherosclerosis of round valley arteries of the extremities with intermittent claudication URINARY 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 Halle Dejesus Retention of urine, unspecified Medication List Medication Instructions Start Date Stop Date Generic Name ND Status Provider Patient Instruction ALLOPURINOL 100 MG TAB 1 PO BID ALLOPURINOL 62422931941 Active Halle Dejesus PREDNISONE 10 MG TAB 2 PO at one time for 3 days then 1 po daily for 4 days PREDNISONE 70764371822 No Longer Active Jazzmine [place] HYDROXYZINE HCL 25 MG TAB 1 po Q 6 hrs prn HYDROXYZINE HCL 85590662323 Active Jazzmine [place] PREDNISONE 20 MG TAB 2 pills at once for 2 days then 1 pill daily for 5 days PREDNISONE 89036450922 No Longer Active Halle Dejesus MECLIZINE HCL 25 MG TAB 1 PO Q6hrs prn dizziness MECLIZINE HCL 48257415918 No Longer Active Halle Dejesus ATARAX 25 MG TAB 1 po QHS prn itching HYDROXYZINE HCL No Longer Active Halle Dejesus ALLOPURINOL 100 MG TAB 1 PO Daily ALLOPURINOL 71367691850 No Longer Active Halle Dejesus KENALOG 0.1 % CREA apply to affected areas BID TRIAMCINOLONE ACETONIDE No Longer Active Jazzminetrent [place] CALTRATE 600 PLUS-VIT D 600-200 MG-IU TABS 1 PO BID CALCIUM-VITAMIN D Active Halle Dejesus CALCITRIOL 0.25 MCG CAPS 1 PO Daily CALCITRIOL 47592469524 No Longer Active Halle Dejesus TRIAMCINOLONE ACETONIDE 0.1 % CREA Apply daily prn to affected areas TRIAMCINOLONE ACETONIDE 05513270363 No Longer Active Halle Dejesus LORTAB 5 5-500 MG TABS 1 to 2 PO Q6hrs prn ACETAMINOPHEN- HYDROCODONE 07963110330 No Longer Active Halle Dejesus IBUPROFEN 200 MG TAB 2 PO BID PRN IBUPROFEN 37349917904 No Longer Active Halleluz Dejesus TYLENOL 500 MG TABS 1 PO Q6hrs prn ACETAMINOPHEN 91463356034 Active Halle Vicki Dejesus KENALOG 0.1 % CREA apply daily as needed to effected areas 04/03 TRIAMCINOLONE ACETONIDE No Longer Active Halleluz Dejesus HYDROXYZINE HCL 10 MG TABS 1 PO QHS prn itching HYDROXYZINE HCL 99875226046 No Longer Active Halle Vicki Dejesus ZETIA 10 MG TABS 1 PO QD EZETIMIBE 38425411168 No Longer Active Halle Vicki Dejesus NYSTATIN 152757 UNIT/GM POWD Apply to affected areas BID over cream. NYSTATIN 39223427073 No Longer Active Halle Vicki Dejesus NYSTATIN 767425 UNIT/GM CREA Apply to affected areas BID and apply powder over cream. NYSTATIN 83025412853 No Longer Active Halleluz Dejesus TESSALON 200 MG CAPS 1 PO TID prn cough BENZONATATE 67499227230 No Longer Active Halleluz Dejesus AUGMENTIN 500-125 MG TAB 1 PO BID AMOXICILLIN-POT CLAVULANATE 84720878954 No Longer Active Halleluz Dejesus OMEPRAZOLE 20 MG CPDR 1 PO daily OMEPRAZOLE 19975801064 Active Jazzmine Sandy COZAAR 50 MG TAB 1 po daily [place] POTASSIUM 30336750022 Active Jazzmine Sandy TRIAMTERENE-HCTZ 37.5-25 MG CAPS 1 cap po daily TRIAMTERENE- HCTZ 79996060551 No Longer Active Halle Vicki Dejesus LASIX 20 MG TAB 1 PO QD prn swelling FUROSEMIDE 36249112415 Active Halle Vicki Dejesus MUCINEX 600 MG TB12 1 PO BID for 5 days GUAIFENESIN 38496080687 No Longer Active Halle Vicki Dejesus PREDNISONE 20 MG TAB 2 pills at once for 2 days then 1 pill daily for 2 days PREDNISONE 36713365432 No Longer Active Halle Vicki Dejesus BIAXIN 500 MG TAB 1 PO BID CLARITHROMYCIN 03295747494 No Longer Active Halle Vicki Dejesus ADVAIR DISKUS 250-50 MCG/DOSE MISC 1 puff BID FLUTICASONE- SALMETEROL 49988796416 Active Halle Vicki Dejesus PROAIR HFA 108 (90 BASE) MCG/ACT AERS 2 puff Q4 hrs prn wheezing ALBUTEROL SULFATE 36008754466 Active Halle Vicki Dejesus OMEPRAZOLE 20 MG CPDR 1 PO daily OMEPRAZOLE 12034696928 No Longer Active Halle Vicki Dejesus ULTRAM 50 MG TAB 1 PO TID with meal TRAMADOL HCL 46757860633 No Longer Active Halle Vicki Dejesus LORTAB 5 5-500 MG TABS 1 PO QHS ACETAMINOPHEN- HYDROCODONE 34718015511 No Longer Active Halle Vicki Dejesus DARVON 65 MG CAPS 1 PO Q6hrs prn Pain PROPOXYPHENE HCL 84483771234 No Longer Active Halle Vicki Dejesus PREDNISONE 20 MG TAB 2 pills at once for 2 days then 1 pill daily for 2 days PREDNISONE 34747427601 No Longer Active Halle Vicki Dejesus MOBIC 15 MG TABS 1 PO Daily MELOXICAM 03952894908 Active Jazzmine Sandy PREDNISONE 20 MG TAB 2 pills at once for 2 days then 1 pill daily for 2 days PREDNISONE 11786361467 No Longer Active Halle Vicki Dejesus AUGMENTIN 500-125 MG TAB 1 PO BID AMOXICILLIN-POT CLAVULANATE 00104287403 No Longer Active Halle Vicki Dejesus TESSALON 200 MG CAPS 1 PO TID prn cough BENZONATATE 78903673431 No Longer Active Halleluz HAINES'Meg NASAL SPRAY (DEXAMETHASONE, GENTAMICIN, SALINE) 2 puffs each nostril TID for [address] FARFAN NASAL SPRAY ( DEXAMETHASONE, GENTAMICIN, SALINE) No Longer Active Halleluz Dejesus MUCINEX 600 MG TB12 1 PO BID for 5 days GUAIFENESIN 54136077800 No Longer Active Halle Vicki Dejesus BIAXIN 500 MG TAB 1 PO BID CLARITHROMYCIN 67168875874 No Longer Active Halleluz Dejesus LOTRISONE 0.05-1 % CREAM apply to affected areas BID CLOTRIMAZOLE-BETAMETHASONE 04274658683 No Longer Active Halle Vicki Dejesus KENALOG 0.1 % CREA apply to affected areas BID TRIAMCINOLONE ACETONIDE No Longer Active Halleluz Dejesus VITAMIN D 1000 UNIT CAPS 1 PO Daily CHOLECALCIFEROL 01191590447 Active Halleluz Dejesus PYRIDIUM 200 MG TAB 1 PO TID prn urinary urgency PHENAZOPYRIDINE HCL 74949404185 No Longer Active Halle Dejesus CIPRO 250 MG TABS 1 PO BID CIPROFLOXACIN HCL 38680660524 No Longer Active Halleluz Dejesus HYCODAN 5-1.5 MG/5ML SYRP 1 teaspoon PO Q6hrs prn cough HYDROCODONE-HOMATROPINE 97154214852 No Longer Active Halleluz Dejesus IMODIUM A-D TABS as directed LOPERAMIDE HCL TABS 83830412382 No Longer Active Halleluz Dejesus HYDROCODONE-GG EXPECTORANT 5-100 MG/5ML SYRP 1 teaspoon PO Q4hrs prn cough HYDROCODONE-GUAIFENESIN 10137025412 No Longer Active Halle Vicki Dejesus FISH OIL 1000 MG CAPS 1 po daily OMEGA-3 FATTY ACIDS 04146650254 No Longer Active Halle Vicki Dejesus TESSALON 200 MG CAPS 1 PO TID prn cough BENZONATATE 98986935289 No Longer Active Halle Vicki Dejesus BIAXIN 500 MG TAB 1 PO BID for 7 days CLARITHROMYCIN 04691427415 No Longer Active Halle Vicki Dejesus PYRIDIUM 200 MG TABS 1 PO TID PHENAZOPYRIDINE HCL 43457888476 No Longer Active Linda Tarik CIPRO 250 MG TABS 1 PO daily CIPROFLOXACIN HCL 95393751496 No Longer Active Linda Montanez FLOXIN OTIC 0.3 % SOLN 2 drops right eye Q6hrs for 7 days OFLOXACIN 25120156649 No Longer Active Halle Vicki Dejesus TESSALON 200 MG CAPS 1 PO TID prn cough BENZONATATE 80947156829 No Longer Active Halle Vicki Dejesus BIAXIN XL PAC 500 MG TB24 2 pills at same time daily for 7 days CLARITHROMYCIN 83313763240 No Longer Active Halle Vicki Dejesus ALPRAZOLAM 0.25 MG TABS 1 po q 6 hrs. prn ALPRAZOLAM 35047276229 Active Halle Vicki Dejesus OCUFLOX 0.3 % SOLN 2 drops left ear TID for 7 days OFLOXACIN 02300069973 No Longer Active Halle Vicki Dejesus BENAZEPRIL HCL 10 MG TABS 1 PO daily BENAZEPRIL HCL 15120942035 No Longer Active Jazzmine Sandy NORVASC 5 MG TAB 1 PO QD AMLODIPINE BESYLATE 74020393035 Active Jazzmine Sandy ADVAIR DISKUS 250-50 MCG/DOSE MISC 1 Puff BID FLUTICASONE-SALMETEROL 67335075823 No Longer Active Halle Vicki Dejesus ALPRAZOLAM 0.25 MG TABS 1 po q 6 hrs. prn ALPRAZOLAM 61069195064 No Longer Active Halle Vicki Dejesus LORTAB 5 5-500 MG TABS 1 to 2 PO Q6hrs prn ACETAMINOPHEN-HYDROCODONE 71514472809 No Longer Active Halle Vicki Dejesus FLUOCINONIDE 0.05 % CREA Apply to affected areas BID for 7 days FLUOCINONIDE 27907837209 No Longer Active Halle Vicki Dejesus KETOCONAZOLE 2 % CREA Apply to affected areas BID for 7 days 2006 KETOCONAZOLE 44568519380 No Longer Active Halle Vicki Dejesus XANAX 0.25 MG TABS 1 tab PO prn ALPRAZOLAM 11722851082 No Longer Active Halle Vicki Dejesus KCL HERBAL 7.3 MEQ 1 PO QD OTC KCL HERBAL 7.3 MEQ No Longer Active Halle Vicki Dejesus PRAVACHOL 20 MG TABS 1 PO daily PRAVASTATIN SODIUM 95251536654 Active Jazzminetrent GONGAIR DISKUS 100-50 MCG/DOSE MISC 1 puff bid prn FLUTICASONE-SALMETEROL 47789049021 No Longer Active Halleluz Dejesus NEXIUM 40 MG CPDR ESOMEPRAZOLE MAGNESIUM 95952122554 No Longer Active Halleluz Dejesus ALBUTEROL SULFATE FOR SOLN 1 TX Q6hrs prn ALBUTEROL SULFATE FOR SOLN 49106505492 No Longer Active Halle Vicki Dejesus PROTONIX 40 MG TBEC 1 po qd PANTOPRAZOLE SODIUM 97735908948 No Longer Active Halle Vicki Dejesus CARAFATE 1 GM TABS 1 po 1 hr before meals, 2hr before other meds, and at bedtime SUCRALFATE 33122687809 No Longer Active Halle Vicki Dejesus PREDNISONE 20 MG TABS 3 for 2 days, 2 for 2 days, 1 for 2 days PREDNISONE 98358664593 No Longer Active Halle Vicki Dejesus NEXIUM 40 MG CPDR 1 PO QD ESOMEPRAZOLE MAGNESIUM 31841152000 No Longer Active Halle iVcki Dejesus ADVAIR DISKUS 250-50 MCG/DOSE MISC 1 puff BID FLUTICASONE-SALMETEROL 17390361968 No Longer Active Halle Vicki Dejesus DOXYCYCLINE HYCLATE 100 MG CAPS 1 po BID DOXYCYCLINE HYCLATE 58933569518 No Longer Active Halle Vicki Dejesus ASPIRIN 81 MG CHEW TAB 1 PO QD ASPIRIN 76687509100 Active Halle Vicki Dejesus CODICLEAR DH 5-100 MG/5ML SYRP 5 cc q 4-6 hrs. prn HYDROCODONE-GUAIFENESIN 06114118901 No Longer Active Halle Vicki Dejesus PALGIC 4 MG TABS 1 po daily CARBINOXAMINE MALEATE 72105177391 No Longer Active Halle Vicki Dejesus NASONEX 50 MCG/ACT SUSP 1 squirt daily each nostril MOMETASONE FUROATE 93342973242 No Longer Active Halle Vicki Dejesus CALCIUM 600 MG TABS 1 po BID CALCIUM 83514384926 No Longer Active Halle Vicki Dejesus CEFZIL 250 MG TAB 1 PO BID CEFPROZIL 70372711205 No Longer Active Halle Vicki Dejesus TOBREX 0.3 % OINT Q4hrs TOBRAMYCIN SULFATE (OPHTH) 55864918373 No Longer Active Halle Vicki Dejesus PROTONIX 40 MG TBEC 1 po qd PANTOPRAZOLE SODIUM 25645324361 No Longer Active Halle Vicki Dejesus PLAVIX 75 MG TABS CLOPIDOGREL BISULFATE 37021583768 No Longer Active Halle Vicki Dejesus LOTREL 5-10 MG CAP 1 PO QD AMLODIPINE BESY-BENAZEPRIL HCL 27411470899 No Longer Active Jazzmine Sandy PRAVACHOL 40 MG TABS PRAVASTATIN SODIUM 82291048943 No Longer Active Halle Vicki Dejesus NORVASC 5 MG TAB 1 PO QD AMLODIPINE BESYLATE 69527871885 No Longer Active Halle Vicki Dejesus DILTIAZEM HCL CR 180 MG CP24 DILTIAZEM HCL 83738059190 No Longer Active Halle Vicki Dejesus LIPITOR 20 MG TABS 1 po daily ATORVASTATIN CALCIUM 04038960700 No Longer Active Halle Vicki Dejesus NEXIUM 40 MG CPDR 1 PO QD(30 samples) ESOMEPRAZOLE MAGNESIUM 36304563407 No Longer Active Halle Vicki Dejesus PROTONIX 40 MG TBEC 1 po daily PANTOPRAZOLE SODIUM 14734556483 No Longer Active Halle Vicki Dejesus IBUPROFEN 200 MG TABS 2-3 tabs at HS IBUPROFEN 82160915140 No Longer Active Halle Vicki Dejesus SINGULAIR 10 MG TABS pt. no longer takes MONTELUKAST SODIUM 68533181729 No Longer Active Halle Vicki Dejesus COMBIVENT 103-18 MCG/ACT AERO pt. no longer takes ALBUTEROL-IPRATROPIUM 75531079759 No Longer Active Halle Vicki Dejesus FLEXERIL 10 MG TAB 1 PO TID prn CYCLOBENZAPRINE HCL 57305348108 No Longer Active Halle Vicki Dejesus DILAUDID 2 MG TABS 1 PO BID prn HYDROMORPHONE HCL 68343282642 No Longer Active Halle Vicki Oleg MULTIVITAMINS TABS 1 po daily (weight control) MULTIPLE VITAMIN 15651193558 Active Halle Dejesus Immunizations Vaccine Administration Date Value Standard Description [...] none Encounters Code Encounter Date Provider Facility CPT-06487 Ofc Vst, Est Level III 17:17:59 CDT Halle Dejesus DO, FACP CPT-38837 Ofc Vst, Est Level IV 16:44:01 CDT Halle Dejesus DO, FACP CPT-50647 Ofc Vst, Est Level IV 09:56:06 [employer]PLANE 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[employer]IC APPRENTICE Halle Dejesus DO, FACP CPT-53517 Ofc Vst, Est Level III 11:26:10 CDT Halle Dejesus DO, FACP CPT-63672 Ofc Vst, Est Level III 19:58:58 [employer]PLANE MECH[employer]IC APPRENTICE Halle Dejesus DO, FACP CPT-61122 Ofc Vst, Est Level III 21:42:42 CDT Halle Dejesus DO, FACP CPT-72596 Ofc Vst, Est Level III 15:59:11 CDT Halle Dejesus DO, FACP CPT-09664 Ofc Vst, Est Level IV 14:48:01 CDT Halle Dejesus DO, FACP CPT-00084 Ofc Vst, Est Level IV 11:08:03 CDT Halle BRADY CPT-64397 Ofc Vst, Est Level IV 11:21:10 CDT Halle Dejesus DO, FACP CPT-49899 Ofc Vst, Est Level IV 14:27:00 [employer]PLANE MECH[employer]IC APPRENTICE Halle Mcmillan Dejesus, DO, FACP CPT-05876 Ofc Vst, Est Level IV 11:07:58 [employer]PL[employer] MECH[employer]IC APPRENTICE Halle Mcmillan Dejesus, DO, FACP CPT-99726 Ofc Vst, Est Level III 15:51:12 CDT Halle Vicki Mcmillan Dejesus, DO, FACP CPT-15604 Ofc Vst, Est Level IV 10:19:24 CDT Halle Vicki Mcmillan Dejesus, DO, FACP CPT-87933 Ofc Vst, Est Level III 11:03:07 CDT Halle Vicki Mcmillan Dejesus, DO, FACP CPT-30684 Ofc Vst, Est Level IV 11:41:49 CDT Halle Vicki Mcmillan Oleg, DO, FACP CPT-87370 Ofc Vst, Est Level IV 10:18:48 [employer]PLANE MECH[employer]IC APPRENTICE Halle Mcmillan Dejesus, DO, FACP CPT-76765 Ofc Vst, Est Level IV 10:17:36 CDT Halleluz Mcimllan Dejesus, DO, FACP CPT-92910 Ofc Vst, Est Level IV 14:36:16 CDT Halle Mcmillan Oleg, DO, FACP CPT-47572 Ofc Vst, Est Level IV 14:47:06 CDT Halle Vicki Mcmillan Dejesus, DO, FACP CPT-33607 Ofc Vst, Est Level IV 16:08:37 [employer]PLANE MECH[employer]IC APPRENTICE Halle Dejesus DEANNA OFFICE CPT-50556 Ofc Vst, Est Level IV 09:58:23 [employer]PLANE MECH[employer]IC APPRENTICE Halle Mcmillan Dejesus, DO, FACP CPT-03873 Ofc Vst, Est Level IV 09:30:43 [employer]PL[employer] MECH[employer]IC APPRENTICE Halle Vicki Dejesus Halle S Dejesus, DO, FACP CPT-21133 Ofc Vst, Est Level V 14:50:31 CDT Halle Vicki Mcmillan Dejesus, DO, FACP CPT-64954 Ofc Vst, Est Level III 11:07:34 CDT Halle Vicki Mcmillan Dejesus, DO, FACP CPT-33665 Ofc Vst, Est Level IV 10:37:31 CDT Halle Vicki Mcmillan Dejesus, DO, FACP CPT-32636 Ofc Vst, Est Level IV 09:30:05 CDT Halle Vicki Mcmillan Dejesus, DO, FACP CPT-47831 Ofc Vst, Est Level IV 11:09:58 CDT Halle Vicki Mcmillan Oleg, DO, FACP CPT-39825 Ofc Vst, Est Level IV 10:11:39 [employer]CH[employer]IC APPRENTICE Halle Vicki Mcmillan Oleg, DO, FACP CPT-07130 Ofc Vst, Est Level V 16:06:45 [employer]CH[employer]IC APPRENTICE Halle Vicki Mcmillan Dejesus, DO, FACP CPT-10336 Ofc Vst, Est Level III 13:06:05 [employer]PLANE MECH[employer]IC APPRENTICE Halle Mcmillan Dejesus, DO, FACP CPT-42708 Ofc Vst, Est Level III 15:24:44 [employer]CH[employer] APPRENTICE Halle Vicki Mcmillan Oleg, DO, FACP CPT-43580 Ofc Vst, Est Level IV 09:38:45 CDT Halle Vicki Mcmillan Oleg, DO, FACP CPT-67791 Ofc Vst, Est Level III 10:07:58 CDT Halle Vicki Neri S Oleg, DO, FACP CPT-41169 Ofc Vst, Est Level IV 09:50:32 CDT Halle Vicki Mcmillan Oleg, DO, FACP CPT-55943 Ofc Vst, Est Level III 13:45:05 [employer]ANE MECH[employer]IC APPRENTICE Halle Dejesus, DO, FACP CPT-95048 Ofc Vst, Est Level IV 09:38:56 [employer] MECH[employer]IC APPRENTICE Halle Dejesus, DO, FACP CPT-35208 Ofc Vst, Est Level III 10:21:38 CDT Halle Vicki Dejesus, DO, FACP CPT-60121 Ofc Vst, Est Level IV 11:47:09 CDT Halle Vicki Dejesus, DO, FACP CPT-97130 Ofc Vst, Est Level III 13:52:46 CDT Halle Dejesus [facility] [place] CPT-83504 Ofc Vst, Est Level IV 09:24:43 CDT Halle Dejesus [facility] [place] CPT-49444 Ofc Vst, Est Level III 10:45:34 [employer]CH[employer] APPRENTICE Halle Dejesus [facility] [place] CPT-84724 Ofc Vst, Est Level III 09:22:58 [employer]CH[employer] APPRENTICE Halle Dejesus [facility] [place] CPT-10646 Ofc Vst, Est Level III 09:24:03 [employer] MECH[employer] APPRENTICE Halle Dejesus [facility] [place] CPT-16569 Ofc Vst, Est Level IV 11:31:52 [employer]CH[employer] APPRENTICE Halle Dejesus [facility] [place] CPT-69905 Ofc Vst, Est Level IV 10:30:21 CDT Halle Dejesus [facility] [place] CPT-76839 Ofc Vst, Est Level IV 10:59:46 [employer]CH[employer] APPRENTICE Halle Dejesus [facility] [place] CPT-08556 Ofc Vst, Est Level IV 12:01:57 [employer] MECH[employer] APPRENTICE Halle Dejesus [facility] [place] CPT-75285 Ofc Vst, Est Level IV 09:33:58 CDT Halle Dejesus [facility] [place] CPT-84246 Ofc Vst, Est Level IV 10:43:46 CDT Halle Dejesus [facility] [place] CPT-47535 Ofc Vst, Est Level IV 09:35:52 CDT Halle Dejesus [facility] [place] CPT-25618 Ofc Vst, Est Level IV 12:18:01 [employer]CH[employer] APPRENTICE Halle Dejesus [facility] [place] CPT-81750 Ofc Vst, Est Level III 17:51:31 [employer]CH[employer] APPRENTICE Halle Dejesus [facility] [place] CPT-42181 Ofc Vst, Est Level IV 12:10:07 [employer] MECH[employer] APPRENTICE Halle Dejesus [facility] [place] CPT-10481 Ofc Vst, Est Level IV 12:44:30 [employer] MECH[employer] APPRENTICE Halle Dejesus [facility] [place] CPT-15721 Ofc Vst, Est Level IV 11:19:06 [employer] MECH[employer] APPRENTICE Halle Dejesus [facility] [place] CPT-59708 Ofc Vst, Est Level IV 17:39:18 [employer] MECH[employer] APPRENTICE Halle Dejesus [facility] [place] CPT-17011 Ofc Vst, Est Level IV 18:49:33 [employer] MECH[employer] APPRENTICE Halle Dejesus [facility] [place] CPT-90290 Ofc Vst, Est Level III 13:03:17 CDT Halle Dejesus [facility] [place] CPT-76863 Ofc Vst, Est Level III 11:18:41 CDT Halle Dejesus [facility] [place] CPT-93780 Ofc Vst, Est Level III 18:35:23 CDT Halle Dejesus [facility] [place] CPT-76711 Ofc Vst, Est Level III 17:35:56 CDT Halle Dejesus [facility] [place] CPT-15824 Ofc Vst, Est Level III 14:32:00 CDT Halle Dejesus [facility] [place] CPT-16062 Ofc Vst, Est Level III 09:50:07 CDT Halle Dejesus [facility] [place] CPT-51053 Ofc Vst, Est Level III 10:22:24 CDT Halle Dejesus [facility] [place] CPT-06559 Ofc Vst, Est Level III 10:40:11 CDT Halle Dejesus [facility] [place] CPT-42110 Ofc Vst, Est Level III 10:02:24 [employer]CH[employer] APPRENTICE Halle Dejesus [facility] [place] CPT-35993 Ofc Vst, Est Level III 13:01:39 [employer]CH[employer]IC APPRENTICE Halle Dejesus [facility] [place] CPT-39193 Ofc Vst, Est Level II 10:46:54 [employer] MECH[employer]IC APPRENTICE Halle Dejesus [facility] [place] CPT-16126 Ofc Vst, New Level IV 11:39:11 [employer]CH[employer]IC APPRENTICE Halle Dejesus [facility] [place] Procedures Code Procedure Name Date Entry Date Standard Description CPT-G0439 Medicare Annual Wellness Visit 15:48:34 CDT CPT-G8446 E-Prescribing not done due to controlled substance 16:53 :03 CDT CPT-G0439 Medicare Annual Wellness Visit 16:53:03 CDT CPT-G8443 E-Prescribing Medication Sent 19:58:58 [employer]CH[employer]IC APPRENTICE CPT-G8445 E-Prescribing Not sent due to no medication given 21:42: 42 CDT CPT-G8445 E-Prescribing Not sent due to no medication given 15:59: 11 CDT CPT-G8445 E-Prescribing Not sent due to no medication given 14:48: 01 CDT CPT-16345 Injection, Pneumovax 15:32:21 [employer]CH[employer]IC APPRENTICE CPT-G8445 E-Prescribing Not sent due to no medication given 13:27: 30 [employer] MECH[employer]IC APPRENTICE CPT-G0438 Medicare Annual Wellness Visit Initial 13:27:30 [employer] MECH[employer]IC APPRENTICE CPT-8446 E-Prescribing not done due to controlled substance 11:09: 58 CDT CPT-45000 Injection, Pneumovax 10:21:38 CDT CPT-20459 EKG w/ Interpretation 08:47:25 [employer]PLANE MECHANIC APPRENTICE
--- OUTSIDE RECORDS SUMMARY | 2018-04-26 09:53 | XMS REPORT | Clinical Summary ---
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 Halle Dejesus Retention of urine, unspecified Medication List Medication Instructions Start Date Stop Date Generic Name ND Status Provider Patient Instruction ALLOPURINOL 100 MG TAB 1 PO BID ALLOPURINOL 58394208686 Active Halle Dejesus PREDNISONE 10 MG TAB 2 PO at one time for 3 days then 1 po daily for 4 days PREDNISONE 45702315916 No Longer Active Jazzmine [place] HYDROXYZINE HCL 25 MG TAB 1 po Q 6 hrs prn HYDROXYZINE HCL 34734548452 Active Jazzmine [place] PREDNISONE 20 MG TAB 2 pills at once for 2 days then 1 pill daily for 5 days PREDNISONE 71336022343 No Longer Active Halle Dejesus MECLIZINE HCL 25 MG TAB 1 PO Q6hrs prn dizziness MECLIZINE HCL 15309573851 No Longer Active Halle Dejesus ATARAX 25 MG TAB 1 po QHS prn itching HYDROXYZINE HCL No Longer Active Halle Dejesus ALLOPURINOL 100 MG TAB 1 PO Daily ALLOPURINOL 90654633249 No Longer Active Halle Dejesus KENALOG 0.1 % CREA apply to affected areas BID TRIAMCINOLONE ACETONIDE No Longer Active Jazzminetrent [place] CALTRATE 600 PLUS-VIT D 600-200 MG-IU TABS 1 PO BID CALCIUM-VITAMIN D Active Halle Dejesus CALCITRIOL 0.25 MCG CAPS 1 PO Daily CALCITRIOL 93508016540 No Longer Active Halle Dejesus TRIAMCINOLONE ACETONIDE 0.1 % CREA Apply daily prn to affected areas TRIAMCINOLONE ACETONIDE 47395798455 No Longer Active Halle Dejesus LORTAB 5 5-500 MG TABS 1 to 2 PO Q6hrs prn ACETAMINOPHEN- HYDROCODONE 51637050809 No Longer Active Halle Dejesus IBUPROFEN 200 MG TAB 2 PO BID PRN IBUPROFEN 53153918846 No Longer Active Halleluz Dejesus TYLENOL 500 MG TABS 1 PO Q6hrs prn ACETAMINOPHEN 37989097132 Active Halle Vicki Dejesus KENALOG 0.1 % CREA apply daily as needed to effected areas 04/03 TRIAMCINOLONE ACETONIDE No Longer Active Halleluz Dejesus HYDROXYZINE HCL 10 MG TABS 1 PO QHS prn itching HYDROXYZINE HCL 29947331221 No Longer Active Halle Vicki Dejesus ZETIA 10 MG TABS 1 PO QD EZETIMIBE 31444766700 No Longer Active Halle Vicki Dejesus NYSTATIN 331795 UNIT/GM POWD Apply to affected areas BID over cream. NYSTATIN 61844172302 No Longer Active Halle Vicki Dejesus NYSTATIN 641389 UNIT/GM CREA Apply to affected areas BID and apply powder over cream. NYSTATIN 07512420696 No Longer Active Halleluz Dejesus TESSALON 200 MG CAPS 1 PO TID prn cough BENZONATATE 95372485490 No Longer Active Halleluz Dejesus AUGMENTIN 500-125 MG TAB 1 PO BID AMOXICILLIN-POT CLAVULANATE 10835253957 No Longer Active Halleluz Dejesus OMEPRAZOLE 20 MG CPDR 1 PO daily OMEPRAZOLE 76152640522 Active Jazzmine Sandy COZAAR 50 MG TAB 1 po daily [place] POTASSIUM 14659280405 Active Jazzmine Sandy TRIAMTERENE-HCTZ 37.5-25 MG CAPS 1 cap po daily TRIAMTERENE- HCTZ 70727180341 No Longer Active Halle Vicki Dejesus LASIX 20 MG TAB 1 PO QD prn swelling FUROSEMIDE 92014813496 Active Halle Vicki Dejesus MUCINEX 600 MG TB12 1 PO BID for 5 days GUAIFENESIN 28492024516 No Longer Active Hlale Vicki Dejesus PREDNISONE 20 MG TAB 2 pills at once for 2 days then 1 pill daily for 2 days PREDNISONE 88162848734 No Longer Active Halle Vicki Dejesus BIAXIN 500 MG TAB 1 PO BID CLARITHROMYCIN 98985726576 No Longer Active Halle Vicki Dejesus ADVAIR DISKUS 250-50 MCG/DOSE MISC 1 puff BID FLUTICASONE- SALMETEROL 48327449828 Active Halle Vicki Dejesus PROAIR HFA 108 (90 BASE) MCG/ACT AERS 2 puff Q4 hrs prn wheezing ALBUTEROL SULFATE 15135269901 Active Halle Vicki Dejesus OMEPRAZOLE 20 MG CPDR 1 PO daily OMEPRAZOLE 48362053012 No Longer Active Halle Vicki Dejesus ULTRAM 50 MG TAB 1 PO TID with meal TRAMADOL HCL 78901632744 No Longer Active Halle Vicki Dejesus LORTAB 5 5-500 MG TABS 1 PO QHS ACETAMINOPHEN- HYDROCODONE 65973716916 No Longer Active Halle Vicki Dejesus DARVON 65 MG CAPS 1 PO Q6hrs prn Pain PROPOXYPHENE HCL 41128028454 No Longer Active Halle Vicki Dejesus PREDNISONE 20 MG TAB 2 pills at once for 2 days then 1 pill daily for 2 days PREDNISONE 50890747023 No Longer Active Halle Vicki Dejesus MOBIC 15 MG TABS 1 PO Daily MELOXICAM 47977968567 Active Jazzmine [place] PREDNISONE 20 MG TAB 2 pills at once for 2 days then 1 pill daily for 2 days PREDNISONE 40276612714 No Longer Active Halle Vicki Dejesus AUGMENTIN 500-125 MG TAB 1 PO BID AMOXICILLIN-POT CLAVULANATE 59610331543 No Longer Active Halle Vicki Dejesus TESSALON 200 MG CAPS 1 PO TID prn cough BENZONATATE 30325570053 No Longer Active Halleluz HAINES'Meg NASAL SPRAY (DEXAMETHASONE, GENTAMICIN, SALINE) 2 puffs each nostril TID for [address] FARFAN NASAL SPRAY ( DEXAMETHASONE, GENTAMICIN, SALINE) No Longer Active Halleluz Dejesus MUCINEX 600 MG TB12 1 PO BID for 5 days GUAIFENESIN 74413545170 No Longer Active Halle Vicki Dejesus BIAXIN 500 MG TAB 1 PO BID CLARITHROMYCIN 16540904972 No Longer Active Halleluz Dejesus LOTRISONE 0.05-1 % CREAM apply to affected areas BID CLOTRIMAZOLE-BETAMETHASONE 28870114053 No Longer Active Halle Vicki Dejesus KENALOG 0.1 % CREA apply to affected areas BID TRIAMCINOLONE ACETONIDE No Longer Active Halleluz Dejesus VITAMIN D 1000 UNIT CAPS 1 PO Daily CHOLECALCIFEROL 36799728250 Active Halleluz Dejesus PYRIDIUM 200 MG TAB 1 PO TID prn urinary urgency PHENAZOPYRIDINE HCL 29273392422 No Longer Active Halle Dejesus CIPRO 250 MG TABS 1 PO BID CIPROFLOXACIN HCL 34866072129 No Longer Active Halleluz Dejesus HYCODAN 5-1.5 MG/5ML SYRP 1 teaspoon PO Q6hrs prn cough HYDROCODONE-HOMATROPINE 45323632614 No Longer Active Halleluz Dejesus IMODIUM A-D TABS as directed LOPERAMIDE HCL TABS 00810050189 No Longer Active Halleluz Dejesus HYDROCODONE-GG EXPECTORANT 5-100 MG/5ML SYRP 1 teaspoon PO Q4hrs prn cough HYDROCODONE-GUAIFENESIN 81838316111 No Longer Active Halle Vicki Dejesus FISH OIL 1000 MG CAPS 1 po daily OMEGA-3 FATTY ACIDS 16334118615 No Longer Active Halle Vicki Dejesus TESSALON 200 MG CAPS 1 PO TID prn cough BENZONATATE 73413049945 No Longer Active Halle Vicki Dejesus BIAXIN 500 MG TAB 1 PO BID for 7 days CLARITHROMYCIN 57480694797 No Longer Active Halle Vicki Dejesus PYRIDIUM 200 MG TABS 1 PO TID PHENAZOPYRIDINE HCL 18717115185 No Longer Active Linda Tarik CIPRO 250 MG TABS 1 PO daily CIPROFLOXACIN HCL 33628367686 No Longer Active Linda Montanez FLOXIN OTIC 0.3 % SOLN 2 drops right eye Q6hrs for 7 days OFLOXACIN 16724733131 No Longer Active Halle Vicki Dejesus TESSALON 200 MG CAPS 1 PO TID prn cough BENZONATATE 03239899524 No Longer Active Halle Vicki Dejesus BIAXIN XL PAC 500 MG TB24 2 pills at same time daily for 7 days CLARITHROMYCIN 77517586718 No Longer Active Halle Vicki Dejesus ALPRAZOLAM 0.25 MG TABS 1 po q 6 hrs. prn ALPRAZOLAM 99155748771 Active Halle Vicki Dejesus OCUFLOX 0.3 % SOLN 2 drops left ear TID for 7 days OFLOXACIN 33396029266 No Longer Active Halle Vicki Dejesus BENAZEPRIL HCL 10 MG TABS 1 PO daily BENAZEPRIL HCL 68907653500 No Longer Active Jazzmine Sandy NORVASC 5 MG TAB 1 PO QD AMLODIPINE BESYLATE 92203129224 Active Jazzmine Sandy ADVAIR DISKUS 250-50 MCG/DOSE MISC 1 Puff BID FLUTICASONE-SALMETEROL 95334751647 No Longer Active Halle Vicki Dejesus ALPRAZOLAM 0.25 MG TABS 1 po q 6 hrs. prn ALPRAZOLAM 58224439877 No Longer Active Halle Vicki Dejesus LORTAB 5 5-500 MG TABS 1 to 2 PO Q6hrs prn ACETAMINOPHEN-HYDROCODONE 70474250413 No Longer Active Halle Vicki Dejesus FLUOCINONIDE 0.05 % CREA Apply to affected areas BID for 7 days FLUOCINONIDE 73907542700 No Longer Active Halle Vicki Dejesus KETOCONAZOLE 2 % CREA Apply to affected areas BID for 7 days 2006 KETOCONAZOLE 50704183682 No Longer Active Halle Vicki Dejesus XANAX 0.25 MG TABS 1 tab PO prn ALPRAZOLAM 33383366648 No Longer Active Halle Vicki Dejesus KCL HERBAL 7.3 MEQ 1 PO QD OTC KCL HERBAL 7.3 MEQ No Longer Active Halle Vicki Dejesus PRAVACHOL 20 MG TABS 1 PO daily PRAVASTATIN SODIUM 69427171478 Active Jazzminetrent GONGAIR DISKUS 100-50 MCG/DOSE MISC 1 puff bid prn FLUTICASONE-SALMETEROL 02706307168 No Longer Active Halleluz Dejesus NEXIUM 40 MG CPDR ESOMEPRAZOLE MAGNESIUM 81485784639 No Longer Active Halleluz Dejessu ALBUTEROL SULFATE FOR SOLN 1 TX Q6hrs prn ALBUTEROL SULFATE FOR SOLN 27653118123 No Longer Active Halle Vicki Dejesus PROTONIX 40 MG TBEC 1 po qd PANTOPRAZOLE SODIUM 39069171534 No Longer Active Halle Vicki Dejesus CARAFATE 1 GM TABS 1 po 1 hr before meals, 2hr before other meds, and at bedtime SUCRALFATE 52144466461 No Longer Active Halle Vicki Dejesus PREDNISONE 20 MG TABS 3 for 2 days, 2 for 2 days, 1 for 2 days PREDNISONE 31721045146 No Longer Active Halle Vicki Dejesus NEXIUM 40 MG CPDR 1 PO QD ESOMEPRAZOLE MAGNESIUM 99896242510 No Longer Active Halle Vicki Dejesus ADVAIR DISKUS 250-50 MCG/DOSE MISC 1 puff BID FLUTICASONE-SALMETEROL 12298354247 No Longer Active Halle Vicki Dejesus DOXYCYCLINE HYCLATE 100 MG CAPS 1 po BID DOXYCYCLINE HYCLATE 76966064145 No Longer Active Halle Vicki Dejesus ASPIRIN 81 MG CHEW TAB 1 PO QD ASPIRIN 30768388964 Active Halle Vicki Dejesus CODICLEAR DH 5-100 MG/5ML SYRP 5 cc q 4-6 hrs. prn HYDROCODONE-GUAIFENESIN 08511269760 No Longer Active Halle Vicki Dejesus PALGIC 4 MG TABS 1 po daily CARBINOXAMINE MALEATE 51003532098 No Longer Active Halle Vicki Dejesus NASONEX 50 MCG/ACT SUSP 1 squirt daily each nostril MOMETASONE FUROATE 76967131316 No Longer Active Halle Vicki Dejesus CALCIUM 600 MG TABS 1 po BID CALCIUM 43787303271 No Longer Active Halle Vicki Dejesus CEFZIL 250 MG TAB 1 PO BID CEFPROZIL 86750277478 No Longer Active Halle Vicki Dejesus TOBREX 0.3 % OINT Q4hrs TOBRAMYCIN SULFATE (OPHTH) 83336173722 No Longer Active Halle Vicki Dejesus PROTONIX 40 MG TBEC 1 po qd PANTOPRAZOLE SODIUM 99270195005 No Longer Active Halle Vicki Dejesus PLAVIX 75 MG TABS CLOPIDOGREL BISULFATE 72037894230 No Longer Active Halle Vicki Dejesus LOTREL 5-10 MG CAP 1 PO QD AMLODIPINE BESY-BENAZEPRIL HCL 25425281531 No Longer Active Jazzmine Sandy PRAVACHOL 40 MG TABS PRAVASTATIN SODIUM 34672484776 No Longer Active Halle Vicki Dejesus NORVASC 5 MG TAB 1 PO QD AMLODIPINE BESYLATE 79196936179 No Longer Active Halle Vicki Dejesus DILTIAZEM HCL CR 180 MG CP24 DILTIAZEM HCL 74492866263 No Longer Active Halle Vicki Dejesus LIPITOR 20 MG TABS 1 po daily ATORVASTATIN CALCIUM 72840223659 No Longer Active Halle Vicki Dejesus NEXIUM 40 MG CPDR 1 PO QD(30 samples) ESOMEPRAZOLE MAGNESIUM 29571639663 No Longer Active Halle Vicki Dejesus PROTONIX 40 MG TBEC 1 po daily PANTOPRAZOLE SODIUM 76395739688 No Longer Active Halle Vicki Dejesus IBUPROFEN 200 MG TABS 2-3 tabs at HS IBUPROFEN 16317386640 No Longer Active Halle Vicki Dejesus SINGULAIR 10 MG TABS pt. no longer takes MONTELUKAST SODIUM 29397090895 No Longer Active Halle Vicki Dejesus COMBIVENT 103-18 MCG/ACT AERO pt. no longer takes ALBUTEROL-IPRATROPIUM 08832877420 No Longer Active Halle Vicki Dejesus FLEXERIL 10 MG TAB 1 PO TID prn CYCLOBENZAPRINE HCL 65782080870 No Longer Active Halle Vicki Dejesus DILAUDID 2 MG TABS 1 PO BID prn HYDROMORPHONE HCL 19496000521 No Longer Active Ahlle Vicki Oleg MULTIVITAMINS TABS 1 po daily (weight control) MULTIPLE VITAMIN 26433612252 Active Halle Dejesus Immunizations Vaccine Administration Date [...] none Encounters Code Encounter Date Provider Facility CPT-65925 Ofc Vst, Est Level III 17:17:59 CDT Halle Dejesus DO, FACP CPT-60102 Ofc Vst, Est Level IV 16:44:01 CDT Halle Dejesus DO, FACP CPT-44818 Ofc Vst, Est Level IV 09:56:06 [employer] Halle Dejesus DO, FACP CPT-44032 Ofc Vst, Est Level III 11:26:10 CDT Halle Dejesus DO, FACP CPT-15553 Ofc Vst, Est Level III 19:58:58 [employer] Halle Dejesus DO, FACP CPT-71436 Ofc Vst, Est Level III 21:42:42 CDT Halle Dejesus DO, FACP CPT-63200 Ofc Vst, Est Level III 15:59:11 CDT Halle Dejesus DO, FACP CPT-56294 Ofc Vst, Est Level IV 14:48:01 CDT Halle Dejesus DO, FACP CPT-80211 Ofc Vst, Est Level IV 11:08:03 CDT Halle BRADY CPT-32895 Ofc Vst, Est Level IV 11:21:10 CDT Halle Dejesus DO, FACP CPT-48471 Ofc Vst, Est Level IV 14:27:00 [employer] Halle Mcmillan Dejesus, DO, FACP CPT-19009 Ofc Vst, Est Level IV 11:07:58 [employer] Halle Mcmillan Dejesus, DO, FACP CPT-05123 Ofc Vst, Est Level III 15:51:12 CDT Halle Vicki Mcmillan Dejesus, DO, FACP CPT-08294 Ofc Vst, Est Level IV 10:19:24 CDT Halle Vicki Mcmillan Dejesus, DO, FACP CPT-83230 Ofc Vst, Est Level III 11:03:07 CDT Halle Vicki Mcmillan Dejesus, DO, FACP CPT-72244 Ofc Vst, Est Level IV 11:41:49 CDT Halle Vicki Mcmillan Oleg, DO, FACP CPT-50992 Ofc Vst, Est Level IV 10:18:48 [employer] Halle Mcmillan Dejesus, DO, FACP CPT-02300 Ofc Vst, Est Level IV 10:17:36 CDT Hlaleluz Mcmillan Dejesus, DO, FACP CPT-75828 Ofc Vst, Est Level IV 14:36:16 CDT Halle Mcmillan Oleg, DO, FACP CPT-73497 Ofc Vst, Est Level IV 14:47:06 CDT Halle Vicki Mcmillan Dejesus, DO, FACP CPT-40961 Ofc Vst, Est Level IV 16:08:37 [employer] Halle Dejesus DEANNA OFFICE CPT-57411 Ofc Vst, Est Level IV 09:58:23 [employer]CHNICAL [employer] Halle Mcmillan Dejesus, DO, FACP CPT-34125 Ofc Vst, Est Level IV 09:30:43 [employer] Halle Vicki Dejesus Halle S Dejesus, DO, FACP CPT-38209 Ofc Vst, Est Level V 14:50:31 CDT Halle Vicki Mcmillan Dejesus, DO, FACP CPT-57081 Ofc Vst, Est Level III 11:07:34 CDT Halle Vicki Mcmillan Dejesus, DO, FACP CPT-08669 Ofc Vst, Est Level IV 10:37:31 CDT Halle Vicki Mcmillan Dejesus, DO, FACP CPT-27356 Ofc Vst, Est Level IV 09:30:05 CDT Halle Vicki Mcmillan Dejesus, DO, FACP CPT-55290 Ofc Vst, Est Level IV 11:09:58 CDT Halle Vicki Mcmillan Oleg, DO, FACP CPT-85762 Ofc Vst, Est Level IV 10:11:39 [employer] Halle Vicki Mcmillan Oleg, DO, FACP CPT-87756 Ofc Vst, Est Level V 16:06:45 [employer] Halle Vicki Mcmillan Dejesus, DO, FACP CPT-79312 Ofc Vst, Est Level III 13:06:05 [employer] Halle Mcmillan Dejesus, DO, FACP CPT-49167 Ofc Vst, Est Level III 15:24:44 [employer] Halle Vicki Mcmillan Oleg, DO, FACP CPT-14796 Ofc Vst, Est Level IV 09:38:45 CDT Halle Vicki Mcmillan Oleg, DO, FACP CPT-92828 Ofc Vst, Est Level III 10:07:58 CDT Halle Vicki Neri S Oleg, DO, FACP CPT-56836 Ofc Vst, Est Level IV 09:50:32 CDT Halle Vicki Mcmillan Oleg, DO, FACP CPT-59653 Ofc Vst, Est Level III 13:45:05 [employer] Halle Dejesus, DO, FACP CPT-34997 Ofc Vst, Est Level IV 09:38:56 [employer] Halle Dejesus, DO, FACP CPT-03537 Ofc Vst, Est Level III 10:21:38 CDT Halle Vicki Dejesus, DO, FACP CPT-35982 Ofc Vst, Est Level IV 11:47:09 CDT Halle Vicki Dejesus, DO, FACP CPT-60760 Ofc Vst, Est Level III 13:52:46 CDT Halle Dejesus [facility] [place] CPT-45857 Ofc Vst, Est Level IV 09:24:43 CDT Halle Dejesus [facility] [place] CPT-79437 Ofc Vst, Est Level III 10:45:34 [employer] Halle Dejesus [facility] [place] CPT-01770 Ofc Vst, Est Level III 09:22:58 [employer] Halle Dejesus [facility] [place] CPT-38624 Ofc Vst, Est Level III 09:24:03 [employer] Halle Dejesus [facility] [place] CPT-87913 Ofc Vst, Est Level IV 11:31:52 [employer] Halle Dejesus [facility] [place] CPT-21663 Ofc Vst, Est Level IV 10:30:21 CDT Halle Dejesus [facility] [place] CPT-20688 Ofc Vst, Est Level IV 10:59:46 [employer] Halle Dejesus [facility] [place] CPT-16544 Ofc Vst, Est Level IV 12:01:57 [employer] Halle Dejesus [facility] [place] CPT-00688 Ofc Vst, Est Level IV 09:33:58 CDT Halle Dejesus [facility] [place] CPT-83363 Ofc Vst, Est Level IV 10:43:46 CDT Halle Dejesus [facility] [place] CPT-94087 Ofc Vst, Est Level IV 09:35:52 CDT Halle Dejesus [facility] [place] CPT-84804 Ofc Vst, Est Level IV 12:18:01 [employer] Halle Dejesus [facility] [place] CPT-88541 Ofc Vst, Est Level III 17:51:31 [employer] Halle Dejesus [facility] [place] CPT-63671 Ofc Vst, Est Level IV 12:10:07 [employer] Halle Dejesus [facility] [place] CPT-77716 Ofc Vst, Est Level IV 12:44:30 [employer] Halle Dejesus [facility] [place] CPT-44040 Ofc Vst, Est Level IV 11:19:06 [employer] Halle Dejesus [facility] [place] CPT-64699 Ofc Vst, Est Level IV 17:39:18 [employer] Halle Dejesus [facility] [place] CPT-78507 Ofc Vst, Est Level IV 18:49:33 [employer] Halle Dejesus [facility] [place] CPT-49191 Ofc Vst, Est Level III 13:03:17 CDT Halle Dejesus [facility] [place] CPT-72905 Ofc Vst, Est Level III 11:18:41 CDT Halle Dejesus [facility] [place] CPT-30139 Ofc Vst, Est Level III 18:35:23 CDT Halle Dejesus [facility] [place] CPT-03051 Ofc Vst, Est Level III 17:35:56 CDT Halle Dejesus [facility] [place] CPT-72857 Ofc Vst, Est Level III 14:32:00 CDT Halle Dejesus [facility] [place] CPT-28875 Ofc Vst, Est Level III 09:50:07 CDT Halle Dejesus [facility] [place] CPT-49470 Ofc Vst, Est Level III 10:22:24 CDT Halle Dejesus [facility] [place] CPT-16559 Ofc Vst, Est Level III 10:40:11 CDT Halle Dejesus [facility] [place] CPT-53710 Ofc Vst, Est Level III 10:02:24 [employer] Halle Dejesus [facility] [place] CPT-87208 Ofc Vst, Est Level III 13:01:39 [employer] Halle Dejesus [facility] [place] CPT-85127 Ofc Vst, Est Level II 10:46:54 [employer] Halle Dejesus [facility] [place] CPT-82406 Ofc Vst, New Level IV 11:39:11 [employer] Halle Dejesus [facility] [place] Procedures Code Procedure Name Date Entry Date Standard Description CPT-G0439 Medicare Annual Wellness Visit 15:48:34 CDT CPT-G8446 E-Prescribing not done due to controlled substance 16:53 :03 CDT CPT-G0439 Medicare Annual Wellness Visit 16:53:03 CDT CPT-G8443 E-Prescribing Medication Sent 19:58:58 [employer] CPT-G8445 E-Prescribing Not sent due to no medication given 21:42: 42 CDT CPT-G8445 E-Prescribing Not sent due to no medication given 15:59: 11 CDT CPT-G8445 E-Prescribing Not sent due to no medication given 14:48: 01 CDT CPT-49516 Injection, Pneumovax 15:32:21 [employer] CPT-G8445 E-Prescribing Not sent due to no medication given 13:27: 30 [employer] CPT-G0438 Medicare Annual Wellness Visit Initial 13:27:30 [employer] CPT-8446 E-Prescribing not done due to controlled substance 11:09: 58 CDT CPT-54165 Injection, Pneumovax 10:21:38 CDT CPT-23344 EKG w/ Interpretation 08:47:25 [employer]
[2018-04-26 09:57] VITALS: BP 168/73
[2018-04-26] MEDS ORDERED: HURRICAINE EXT TUBE (BENZOCAINE) XX PRN (10:00)
--- OUTSIDE RECORDS SUMMARY | 2018-04-26 10:02 | XMS REPORT | Clinical Summary ---
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 Halle Dejesus Atherosclerosis of [place] arteries of the extremities with intermittent claudication URINARY 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 Halle Dejesus Retention of urine, unspecified Medication List Medication Instructions Start Date Stop Date Generic Name ND Status Provider Patient Instruction PREDNISONE 10 MG TAB 2 PO at one time for 3 days then 1 po daily for 4 days PREDNISONE 46481021004 No Longer Active Jazzmine Sandy HYDROXYZINE HCL 25 MG TAB 1 po Q 6 hrs prn HYDROXYZINE HCL 97878852782 Active Jazzmine Sandy PREDNISONE 20 MG TAB 2 pills at once for 2 days then 1 pill daily for 5 days PREDNISONE 79202506173 No Longer Active Halle Dejesus MECLIZINE HCL 25 MG TAB 1 PO Q6hrs prn dizziness MECLIZINE HCL 73702700813 No Longer Active Halle Dejesus ATARAX 25 MG TAB 1 po QHS prn itching HYDROXYZINE HCL No Longer Active Halle Dejesus ALLOPURINOL 100 MG TAB 1 PO Daily ALLOPURINOL 48092338172 No Longer Active Halle Dejesus KENALOG 0.1 % CREA apply to affected areas BID TRIAMCINOLONE ACETONIDE No Longer Active Jazzmine Sandy CALTRATE 600 PLUS-VIT D 600-200 MG-IU TABS 1 PO BID CALCIUM-VITAMIN D Active Halle Dejesus CALCITRIOL 0.25 MCG CAPS 1 PO Daily CALCITRIOL 34675274154 No Longer Active Halle Dejesus TRIAMCINOLONE ACETONIDE 0.1 % CREA Apply daily prn to affected areas TRIAMCINOLONE ACETONIDE 81649157879 No Longer Active Halle Dejesus LORTAB 5 5-500 MG TABS 1 to 2 PO Q6hrs prn ACETAMINOPHEN- HYDROCODONE 03866830672 No Longer Active Halle Dejesus IBUPROFEN 200 MG TAB 2 PO BID PRN IBUPROFEN 99759342194 No Longer Active Halle Dejesus TYLENOL 500 MG TABS 1 PO Q6hrs prn ACETAMINOPHEN 89082691449 Active Halleluz Dejesus KENALOG 0.1 % CREA apply daily as needed to effected areas 04/03 TRIAMCINOLONE ACETONIDE No Longer Active Halleluz Dejesus HYDROXYZINE HCL 10 MG TABS 1 PO QHS prn itching HYDROXYZINE HCL 59482503581 No Longer Active Halle Vicki Dejesus ZETIA 10 MG TABS 1 PO QD EZETIMIBE 31060722127 No Longer Active Halle Vicki Dejesus NYSTATIN 861361 UNIT/GM POWD Apply to affected areas BID over cream. NYSTATIN 24920531399 No Longer Active Halle Vicki Dejesus NYSTATIN 333284 UNIT/GM CREA Apply to affected areas BID and apply powder over cream. NYSTATIN 63996964503 No Longer Active Halleluz Dejesus TESSALON 200 MG CAPS 1 PO TID prn cough BENZONATATE 07830140697 No Longer Active Halle Vicki Dejesus AUGMENTIN 500-125 MG TAB 1 PO BID AMOXICILLIN-POT CLAVULANATE 46562733543 No Longer Active Halleluz Dejesus OMEPRAZOLE 20 MG CPDR 1 PO daily OMEPRAZOLE 07980895666 Active Jazzmine Sandy COZAAR 50 MG TAB 1 po daily [place] POTASSIUM 98838899278 Active Jazzmine Sandy TRIAMTERENE-HCTZ 37.5-25 MG CAPS 1 cap po daily TRIAMTERENE- HCTZ 12515785676 No Longer Active Halleluz Dejesus LASIX 20 MG TAB 1 PO QD prn swelling FUROSEMIDE 60734426392 Active Halleluz Dejesus MUCINEX 600 MG TB12 1 PO BID for 5 days GUAIFENESIN 58374841386 No Longer Active Halleluz Dejesus PREDNISONE 20 MG TAB 2 pills at once for 2 days then 1 pill daily for 2 days PREDNISONE 60011435538 No Longer Active Halle Vicki Dejesus BIAXIN 500 MG TAB 1 PO BID CLARITHROMYCIN 40231727528 No Longer Active Halle Vicki Dejesus ADVAIR DISKUS 250-50 MCG/DOSE MISC 1 puff BID FLUTICASONE- SALMETEROL 41552875786 Active Halle Vicki Dejesus PROAIR HFA 108 (90 BASE) MCG/ACT AERS 2 puff Q4 hrs prn wheezing ALBUTEROL SULFATE 47721710435 Active Halle Vicki Dejesus OMEPRAZOLE 20 MG CPDR 1 PO daily OMEPRAZOLE 28535178472 No Longer Active Halle Vicki Dejesus ULTRAM 50 MG TAB 1 PO TID with meal TRAMADOL HCL 09286009490 No Longer Active Halle Vicki Dejesus LORTAB 5 5-500 MG TABS 1 PO QHS ACETAMINOPHEN- HYDROCODONE 52079542211 No Longer Active Halle Vicki Dejesus DARVON 65 MG CAPS 1 PO Q6hrs prn Pain PROPOXYPHENE HCL 53197351015 No Longer Active Halleluz Dejesus PREDNISONE 20 MG TAB 2 pills at once for 2 days then 1 pill daily for 2 days PREDNISONE 33246714049 No Longer Active Halle Vicki Dejesus MOBIC 15 MG TABS 1 PO Daily MELOXICAM 27882156772 Active Jazzmine Sandy PREDNISONE 20 MG TAB 2 pills at once for 2 days then 1 pill daily for 2 days PREDNISONE 76988259492 No Longer Active Halle Vicki Dejesus AUGMENTIN 500-125 MG TAB 1 PO BID AMOXICILLIN-POT CLAVULANATE 86728732510 No Longer Active Halle Vicki Dejesus TESSALON 200 MG CAPS 1 PO TID prn cough BENZONATATE 46157591326 No Longer Active Halle Vicki HAINES'S NASAL SPRAY (DEXAMETHASONE, GENTAMICIN, SALINE) 2 puffs each nostril TID for [address] FARFAN NASAL SPRAY ( DEXAMETHASONE, GENTAMICIN, SALINE) No Longer Active Halleluz Dejesus MUCINEX 600 MG TB12 1 PO BID for 5 days GUAIFENESIN 63226070308 No Longer Active Halle Vicki Dejesus BIAXIN 500 MG TAB 1 PO BID CLARITHROMYCIN 57450768648 No Longer Active Halle Vicki Dejesus LOTRISONE 0.05-1 % CREAM apply to affected areas BID CLOTRIMAZOLE-BETAMETHASONE 84774709387 No Longer Active Halle Vicki Dejesus KENALOG 0.1 % CREA apply to affected areas BID TRIAMCINOLONE ACETONIDE No Longer Active Halleluz Dejesus VITAMIN D 1000 UNIT CAPS 1 PO Daily CHOLECALCIFEROL 34003748122 Active Halle Vicki Dejesus PYRIDIUM 200 MG TAB 1 PO TID prn urinary urgency PHENAZOPYRIDINE HCL 34298775615 No Longer Active Halleluz Dejesus CIPRO 250 MG TABS 1 PO BID CIPROFLOXACIN HCL 46185804327 No Longer Active Halleluz Dejesus HYCODAN 5-1.5 MG/5ML SYRP 1 teaspoon PO Q6hrs prn cough HYDROCODONE-HOMATROPINE 44660479429 No Longer Active Halleluz Dejesus IMODIUM A-D TABS as directed LOPERAMIDE HCL TABS 08895034812 No Longer Active Halle Vicki Dejesus HYDROCODONE-GG EXPECTORANT 5-100 MG/5ML SYRP 1 teaspoon PO Q4hrs prn cough HYDROCODONE-GUAIFENESIN 25918482370 No Longer Active Halleluz Dejesus FISH OIL 1000 MG CAPS 1 po daily OMEGA-3 FATTY ACIDS 93638474446 No Longer Active Halle Vicki Dejesus TESSALON 200 MG CAPS 1 PO TID prn cough BENZONATATE 56585048196 No Longer Active Halle Vicki Dejesus BIAXIN 500 MG TAB 1 PO BID for 7 days CLARITHROMYCIN 92541498715 No Longer Active Halle Vicki Dejesus PYRIDIUM 200 MG TABS 1 PO TID PHENAZOPYRIDINE HCL 73602763583 No Longer Active Linda Tarik CIPRO 250 MG TABS 1 PO daily CIPROFLOXACIN HCL 16585304201 No Longer Active Linda Montanez FLOXIN OTIC 0.3 % SOLN 2 drops right eye Q6hrs for 7 days OFLOXACIN 78353087784 No Longer Active Halle Vicki Dejesus TESSALON 200 MG CAPS 1 PO TID prn cough BENZONATATE 00329414683 No Longer Active Halle Vicki Dejesus BIAXIN XL PAC 500 MG TB24 2 pills at same time daily for 7 days CLARITHROMYCIN 08106231938 No Longer Active Halle Vicki Dejesus ALPRAZOLAM 0.25 MG TABS 1 po q 6 hrs. prn ALPRAZOLAM 17247689271 Active Halle Vicki Dejesus OCUFLOX 0.3 % SOLN 2 drops left ear TID for 7 days OFLOXACIN 48675152545 No Longer Active Halle Vicki Dejesus BENAZEPRIL HCL 10 MG TABS 1 PO daily BENAZEPRIL HCL 95289002220 No Longer Active Jazzmine Sandy NORVASC 5 MG TAB 1 PO QD AMLODIPINE BESYLATE 15778360922 Active Jazzmine Sandy ADVAIR DISKUS 250-50 MCG/DOSE MISC 1 Puff BID FLUTICASONE-SALMETEROL 43275171342 No Longer Active Halle Vicki Dejesus ALPRAZOLAM 0.25 MG TABS 1 po q 6 hrs. prn ALPRAZOLAM 44767212687 No Longer Active Halle Vicki Dejesus LORTAB 5 5-500 MG TABS 1 to 2 PO Q6hrs prn ACETAMINOPHEN-HYDROCODONE 21843529569 No Longer Active Halle Vicki Dejesus FLUOCINONIDE 0.05 % CREA Apply to affected areas BID for 7 days FLUOCINONIDE 65396559448 No Longer Active Halle Vicki Dejesus KETOCONAZOLE 2 % CREA Apply to affected areas BID for 7 days 2006 KETOCONAZOLE 00581233744 No Longer Active Halle Vicki Dejesus XANAX 0.25 MG TABS 1 tab PO prn ALPRAZOLAM 33015566474 No Longer Active Halle Vicki Dejesus KCL HERBAL 7.3 MEQ 1 PO QD OTC KCL HERBAL 7.3 MEQ No Longer Active Halle Vicki Dejesus PRAVACHOL 20 MG TABS 1 PO daily PRAVASTATIN SODIUM 27246337830 Active Jazzmine Sandy ADVAIR DISKUS 100-50 MCG/DOSE MISC 1 puff bid prn FLUTICASONE-SALMETEROL 85913592479 No Longer Active Halleluz Dejesus NEXIUM 40 MG CPDR ESOMEPRAZOLE MAGNESIUM 05872093918 No Longer Active Halleluz Dejesus ALBUTEROL SULFATE FOR SOLN 1 TX Q6hrs prn ALBUTEROL SULFATE FOR SOLN 37764025340 No Longer Active Halle Vicki Dejesus PROTONIX 40 MG TBEC 1 po qd PANTOPRAZOLE SODIUM 57391166160 No Longer Active Halleluz Dejesus CARAFATE 1 GM TABS 1 po 1 hr before meals, 2hr before other meds, and at bedtime SUCRALFATE 61572052726 No Longer Active Halle Vicki Dejesus PREDNISONE 20 MG TABS 3 for 2 days, 2 for 2 days, 1 for 2 days PREDNISONE 05093957293 No Longer Active Halle Vicki Dejesus NEXIUM 40 MG CPDR 1 PO QD ESOMEPRAZOLE MAGNESIUM 61097319765 No Longer Active Halle Vicki Dejesus ADVAIR DISKUS 250-50 MCG/DOSE MISC 1 puff BID FLUTICASONE-SALMETEROL 33559435899 No Longer Active Halle Vicki Dejesus DOXYCYCLINE HYCLATE 100 MG CAPS 1 po BID DOXYCYCLINE HYCLATE 66896389304 No Longer Active Halle Vicki Dejesus ASPIRIN 81 MG CHEW TAB 1 PO QD ASPIRIN 05185747385 Active Halle Vicki Dejesus CODICLEAR DH 5-100 MG/5ML SYRP 5 cc q 4-6 hrs. prn HYDROCODONE-GUAIFENESIN 99665547183 No Longer Active Halle Vicki Dejesus PALGIC 4 MG TABS 1 po daily CARBINOXAMINE MALEATE 01359361857 No Longer Active Halle Vicki Dejesus NASONEX 50 MCG/ACT SUSP 1 squirt daily each nostril MOMETASONE FUROATE 95646634477 No Longer Active Halle Vicki Dejesus CALCIUM 600 MG TABS 1 po BID CALCIUM 08015744326 No Longer Active Halle Vicki Dejesus CEFZIL 250 MG TAB 1 PO BID CEFPROZIL 95492628567 No Longer Active Halle Vicki Dejesus TOBREX 0.3 % OINT Q4hrs TOBRAMYCIN SULFATE (OPHTH) 48545818653 No Longer Active Halle Vicki Dejesus PROTONIX 40 MG TBEC 1 po qd PANTOPRAZOLE SODIUM 67918724456 No Longer Active Halle Vicki Dejesus PLAVIX 75 MG TABS CLOPIDOGREL BISULFATE 90300671105 No Longer Active Halle Vicki Dejesus LOTREL 5-10 MG CAP 1 PO QD AMLODIPINE BESY-BENAZEPRIL HCL 62544427393 No Longer Active Jazzmine Sandy PRAVACHOL 40 MG TABS PRAVASTATIN SODIUM 07529919667 No Longer Active Halle Vicki Dejesus NORVASC 5 MG TAB 1 PO QD AMLODIPINE BESYLATE 48244270371 No Longer Active Halle Vicki Dejesus DILTIAZEM HCL CR 180 MG CP24 DILTIAZEM HCL 94101101181 No Longer Active Halle Vicki Dejesus LIPITOR 20 MG TABS 1 po daily ATORVASTATIN CALCIUM 21556259402 No Longer Active Halle Vicki Dejesus NEXIUM 40 MG CPDR 1 PO QD(30 samples) ESOMEPRAZOLE MAGNESIUM 31227238468 No Longer Active Halle Vicki Dejesus PROTONIX 40 MG TBEC 1 po daily PANTOPRAZOLE SODIUM 29628232812 No Longer Active Halle Vicki Dejesus IBUPROFEN 200 MG TABS 2-3 tabs at HS IBUPROFEN 58199983065 No Longer Active Halle Vicki Dejesus SINGULAIR 10 MG TABS pt. no longer takes MONTELUKAST SODIUM 12947119261 No Longer Active Halle Vicki Dejesus COMBIVENT 103-18 MCG/ACT AERO pt. no longer takes ALBUTEROL-IPRATROPIUM 57081356311 No Longer Active Halle Vicki Dejesus FLEXERIL 10 MG TAB 1 PO TID prn CYCLOBENZAPRINE HCL 06035525366 No Longer Active Halle Vicki Dejesus DILAUDID 2 MG TABS 1 PO BID prn HYDROMORPHONE HCL 45763169062 No Longer Active Halle Vicki Oleg MULTIVITAMINS TABS 1 po daily (weight control) MULTIPLE VITAMIN 68741764853 Active Halle Dejesus Immunizations Vaccine Administration Date [...] Range Description blood pressure, diastolic - 8462-4 79 mm[Hg] [...] 8480-6 132 mm[Hg] BP sys pulse rate E&Teresa - 8867-4 70 /min Heart rate respiratory rate E&M - 9279-1 14 /min Resp rate weight E&M - 3141-9 182 [lb_av] Weight Measured Diagnostic Results Date Name Value Unit Range Description Clinical Lists Update: CBC,CMP,Chol,Trig,Ferritin - Chemistry Estimated Glomerular Filtration Rate (calc) 27 mL/min/1.73m2 Estimated Glomerular Filtration Rate (calc) 27 mL/min/1.73m2 albumin, serum 4.3 g/dL albumin, serum 4.0 g/dL alkaline phosphatase, serum 101 U/L alkaline phosphatase, serum 95 U/L urea nitrogen, blood 35 mg/dL urea nitrogen, blood 43 mg/dL calcium, serum 9.3 mg/dL calcium, serum 9.2 mg/dL chloride, serum 105 mmol/L chloride, serum 108 mmol/L cholesterol, serum 197 mg/dL cholesterol, serum 179 mg/dL carbon dioxide, venous blood 21.0 mmol/L glucose, plasma fasting 92 mg/dL glucose, plasma fasting 99 mg/dL anion gap, serum 12 anion gap, serum 13 sodium, serum 139 mmol/L sodium, serum 134 mmol/L triglyceride, serum, fasting 145 mg/dL triglyceride, serum, fasting 156 mg/dL bilirubin, serum, total 0.8 mg/dL bilirubin, serum, total 0.8 mg/dL alanine aminotransferase (SGPT), serum 10 U/L alanine aminotransferase (SGPT), serum 12 U/L aspartate aminotransferase (SGOT), serum 14 U/L aspartate aminotransferase (SGOT), serum 20 U/L protein, total, serum 6.3 g/dL protein, total, serum 6.8 g/dL potassium, serum 5.5 mmol/L potassium, serum 5.2 mmol/L ferritin, serum 21.9 ng/mL ferritin, serum 24.3 ng/mL creatinine, serum 1.9 mg/dL creatinine, serum 1.9 mg/dL carbon dioxide, venous blood 25.0 mmol/L Clinical Lists Update: CBC,CMP,Chol,Trig,Ferritin - Hematology mean corpuscular volume, RBC 82 fL red blood cell distribution width 15.8 % red blood cell distribution width 15.5 % hematocrit, blood 32 % hemoglobin, blood 10.1 g/dL hemoglobin, blood 10.1 g/dL hematocrit, blood 33 % platelet count 308 10*3/mm3 erythrocyte (RBC) count 3.85 10*6/mm3 erythrocyte (RBC) count 3.91 10*6/mm3 leukocyte count, blood 6.1 10*3/mm3 leukocyte count, blood 7.3 10*3/mm3 mean corpuscular volume, RBC 85 fL platelet count 304 10*3/mm3 Clinical Lists Update: CBC,CMP,FLP DISCHARGE LABS - Chemistry Estimated Glomerular Filtration Rate (calc) 26 mL/min/1.73m2 albumin, serum 3.6 g/dL very low density lipoproteins 30 mg/dL sodium, serum 140 mmol/L triglyceride, serum, fasting 148 mg/dL bilirubin, serum, total 0.5 mg/dL alanine aminotransferase (SGPT), serum 12 U/L aspartate aminotransferase (SGOT), serum 14 U/L protein, total, serum 5.9 g/dL potassium, serum 4.7 mmol/L LDL cholesterol, serum 98 mg/dL HDL cholesterol, serum 47 mg/dL creatinine, serum 1.85 mg/dL carbon dioxide, venous blood 22 mmol/L cholesterol, serum 171 mg/dL chloride, serum 110 mmol/L calcium, serum 9.0 mg/dL urea nitrogen, blood 39 mg/dL alkaline phosphatase, serum 93 U/L glucose, plasma fasting 93 mg/dL Clinical Lists Update: CBC,CMP,FLP DISCHARGE LABS - Hematology red blood cell distribution width 15.0 % mean corpuscular volume, RBC 83 fL leukocyte count, blood 9.6 10*3/mm3 erythrocyte (RBC) count 3.16 10*6/mm3 platelet count 267 10*3/mm3 hemoglobin, blood 8.4 g/dL hematocrit, blood 26 % Clinical Lists Update: CBC,CMP,FLP,TSH,FREE T4,FERRITIN - Chemistry Estimated Glomerular Filtration Rate (calc) 29 mL/min/1.73m2 ferritin, serum 47.1 ng/mL glucose, plasma fasting 103 mg/dL alkaline phosphatase, serum 92 U/L cholesterol/HDL ratio, serum, percent 3.5 anion gap, serum 12 sodium, serum 139 mmol/L urea nitrogen, blood 40 mg/dL triglyceride, serum, fasting 144 mg/dL bilirubin, serum, total 0.6 mg/dL calcium, serum 9.3 mg/dL alanine aminotransferase (SGPT), serum 11 U/L chloride, serum 106 mmol/L aspartate aminotransferase (SGOT), serum 15 U/L cholesterol, serum 167 mg/dL protein, total, serum 6.6 g/dL carbon dioxide, venous blood 26.0 mmol/L potassium, serum 4.8 mmol/L creatinine, serum 1.8 mg/dL LDL cholesterol, serum 90 mg/dL thyroid stimulating hormone, serum 3.66 u[iU]/mL HDL cholesterol, serum 48.0 mg/dL albumin, serum 4.1 g/dL Clinical Lists Update: CBC,CMP,FLP,TSH,FREE T4,FERRITIN - Hematology hematocrit, blood 34 % hemoglobin, blood 10.1 g/dL platelet count 271 10*3/mm3 erythrocyte (RBC) count 3.86 10*6/mm3 leukocyte count, blood 6.1 10*3/mm3 mean corpuscular volume, RBC 87 fL red blood cell distribution width 15.2 % Clinical Lists Update: ER LABS - Chemistry bilirubin, serum, total 1.0 mg/dL potassium, serum 4.9 mmol/L sodium, serum 134 mmol/L urea nitrogen, blood 44 mg/dL glucose, plasma fasting 106 mg/dL alkaline phosphatase, serum 99 U/L Estimated Glomerular Filtration Rate (calc) 28 mL/min/1.73m2 albumin, serum 3.9 g/dL calcium, serum 8.9 mg/dL creatinine, serum 1.73 mg/dL protein, total, serum 7.1 g/dL carbon dioxide, venous blood 17 mmol/L aspartate aminotransferase (SGOT), serum 15 U/L alanine aminotransferase (SGPT), serum 9 U/L chloride, serum 107 mmol/L Clinical Lists Update: ER LABS - Hematology hematocrit, blood 32 % leukocyte count, blood 10.9 10*3/mm3 platelet count 293 10*3/mm3 mean corpuscular volume, RBC 82 fL hemoglobin, blood 10.1 g/dL red blood cell distribution width 14.7 % erythrocyte (RBC) count 3.85 10*6/mm3 Clinical Lists Update: ER LABS - Urinalysis glucose, urine, semiquantitative neg protein, urine, semiquantitative (dipstick) 3+ blood in urine (hemoglobin) by dipstick 5+ mucus on urinalysis neg bacteria, urine microscopy Large RBC urine by microscopy none WBC urine on microscopy TNTC {Cells}/[HPF] appearance, urine Clear Yellow urobilinogen, urine, semiquantitative (dipstick) normal specific gravity, urine 1.015 pH, urine, semiquantitative 5 nitrite, urine, semiquantitative neg ketones, urine, by test strip neg bilirubin, urine neg Office Visit: Dr Dejesus's Check Up: Established [...] plasma fasting 76 mg/dL Office Visit: Dr Dejesus'meg Check Up: Established Patient Visit - Hematology [...] none Encounters Code Encounter Date Provider Facility CPT-87252 Ofc Vst, Est Level IV 16:44:01 CDT Halle Dejesus DO, FACP CPT-77344 Ofc Vst, Est Level IV 09:56:06 [facility] Halle Vicki Dejesus Halle S Dejesus, DO, FACP CPT-36051 Ofc Vst, Est Level III 11:26:10 CDT Halle Vicki Mcmillan Oleg, DO, FACP CPT-55391 Ofc Vst, Est Level III 19:58:58 [facility] Halle Mcmillan Oleg, DO, FACP CPT-59700 Ofc Vst, Est Level III 21:42:42 CDT Halle Vicki Mcmillan Oleg, DO, FACP CPT-57797 Ofc Vst, Est Level III 15:59:11 CDT Halle Vicki Mcmillan Oleg, DO, FACP CPT-35703 Ofc Vst, Est Level IV 14:48:01 CDT Halleluz Mcmillan Oleg, DO, FACP CPT-47821 Ofc Vst, Est Level IV 11:08:03 CDT Halleluz [facility] CPT-47358 Ofc Vst, Est Level IV 11:21:10 CDT Halleluz Mcmillan Oleg, DO, FACP CPT-31284 Ofc Vst, Est Level IV 14:27:00 [employer] [facility] Halle Mcmillan Oleg, DO, FACP CPT-90900 Ofc Vst, Est Level IV 11:07:58 [facility] [facility] Halle Mcmillan Oleg, DO, FACP CPT-29632 Ofc Vst, Est Level III 15:51:12 CDT Halleluz Mcmillan Oleg, DO, FACP CPT-21485 Ofc Vst, Est Level IV 10:19:24 CDT Halle Mcmillan Oleg, DO, FACP CPT-07827 Ofc Vst, Est Level III 11:03:07 CDT Halleluz Mcmillan Oleg, DO, FACP CPT-09782 Ofc Vst, Est Level IV 11:41:49 CDT Halle Vicki Mcmillan Dejesus, DO, FACP CPT-69642 Ofc Vst, Est Level IV 10:18:48 [employer] MAN Halle Mcmillan Dejesus, DO, FACP CPT-21829 Ofc Vst, Est Level IV 10:17:36 CDT Halle Vicki Mcmillan Dejesus, DO, FACP CPT-88744 Ofc Vst, Est Level IV 14:36:16 CDT Halle Vicki Mcmillan Dejesus, DO, FACP CPT-02494 Ofc Vst, Est Level IV 14:47:06 CDT Halle Vicki Mcmillan Dejesus, DO, FACP CPT-41064 Ofc Vst, Est Level IV 16:08:37 [facility] Halle Dejesus [facility] CPT-57444 Ofc Vst, Est Level IV 09:58:23 [employer]IT[employer] MAN Halle Vicki Mcmillan Dejesus, DO, FACP CPT-12572 Ofc Vst, Est Level IV 09:30:43 [employer] MAN Halle Mcmillan Dejesus, DO, FACP CPT-23725 Ofc Vst, Est Level V 14:50:31 CDT Halle Vicki Mcmillan Dejesus, DO, FACP CPT-22189 Ofc Vst, Est Level III 11:07:34 CDT Halle Vicki Mcmillan Dejesus, DO, FACP CPT-91570 Ofc Vst, Est Level IV 10:37:31 CDT Halle Vicki Ferrerai S Dejesus, DO, FACP CPT-20450 Ofc Vst, Est Level IV 09:30:05 CDT Halle Vicki Ferrerai Meg Dejesus, DO, FACP CPT-26371 Ofc Vst, Est Level IV 11:09:58 CDT Halleluz Mcmillan Dejesus, DO, FACP CPT-33409 Ofc Vst, Est Level IV 10:11:39 NITRO MAN Halle Mcmillan Dejesus, DO, FACP CPT-53373 Ofc Vst, Est Level V 16:06:45 NITRO MAN Halle Mcmillan Dejesus, DO, FACP CPT-87161 Ofc Vst, Est Level III 13:06:05 NITRO MAN Halle Mcmillan Dejesus, DO, FACP CPT-09648 Ofc Vst, Est Level III 15:24:44 NITRO MAN Halle Mcmillan Dejesus, DO, FACP CPT-72916 Ofc Vst, Est Level IV 09:38:45 CDT Halleluz Mcmillan Dejesus, DO, FACP CPT-78438 Ofc Vst, Est Level III 10:07:58 CDT Halleluz Mcmillan Dejesus, DO, FACP CPT-52370 Ofc Vst, Est Level IV 09:50:32 CDT Halleluz Mcmillan Dejesus, DO, FACP CPT-28108 Ofc Vst, Est Level III 13:45:05 NITRO MAN Halle Mcmillan Dejesus, DO, FACP CPT-02582 Ofc Vst, Est Level IV 09:38:56 NITRO MAN Halle Mcmillan Dejesus, DO, FACP CPT-36176 Ofc Vst, Est Level III 10:21:38 CDT Halleluz Mcmillan Dejesus, DO, FACP CPT-21953 Ofc Vst, Est Level IV 11:47:09 CDT Halleluz Mcmillan Dejesus, DO, FACP CPT-46568 Ofc Vst, Est Level III 13:52:46 CDT Halleluz Dejesus [facility] CPT-88573 Ofc Vst, Est Level IV 09:24:43 CDT Halle Dejesus [facility] [place] CPT-69692 Ofc Vst, Est Level III 10:45:34 NITRO MAN Halle Dejesus [facility] [place] CPT-03070 Ofc Vst, Est Level III 09:22:58 NITRO MAN Halle Dejesus [facility] [place] CPT-08934 Ofc Vst, Est Level III 09:24:03 NITRO MAN Halle Dejesus [facility] [place] CPT-66885 Ofc Vst, Est Level IV 11:31:52 NITRO MAN Halle Dejesus [facility] [place] CPT-11899 Ofc Vst, Est Level IV 10:30:21 CDT Halle Dejesus [facility] [place] CPT-52889 Ofc Vst, Est Level IV 10:59:46 NITRO MAN Halle Dejesus [facility] [place] CPT-75444 Ofc Vst, Est Level IV 12:01:57 NITRO MAN Halle Dejesus [facility] [place] CPT-51595 Ofc Vst, Est Level IV 09:33:58 CDT Halle Vicki Dejesus [facility] [place] CPT-91884 Ofc Vst, Est Level IV 10:43:46 CDT Halle Dejesus [facility] [place] CPT-45118 Ofc Vst, Est Level IV 09:35:52 CDT Halle Dejesus [facility] [place] CPT-33089 Ofc Vst, Est Level IV 12:18:01 NITRO MAN Halle Dejesus [facility] [place] CPT-79264 Ofc Vst, Est Level III 17:51:31 NITRO MAN Halle Dejesus [facility] [place] CPT-30162 Ofc Vst, Est Level IV 12:10:07 NITRO MAN Halle Dejesus [facility] [place] CPT-68390 Ofc Vst, Est Level IV 12:44:30 NITRO MAN Halle Dejesus [facility] [place] CPT-81308 Ofc Vst, Est Level IV 11:19:06 NITRO MAN Halle Dejesus [facility] [place] CPT-53605 Ofc Vst, Est Level IV 17:39:18 NITRO MAN Halle Dejesus [facility] [place] CPT-10398 Ofc Vst, Est Level IV 18:49:33 NITRO MAN Halle Dejesus [facility] [place] CPT-31355 Ofc Vst, Est Level III 13:03:17 CDT Halle Vicki Dejesus [facility] [place] CPT-20233 Ofc Vst, Est Level III 11:18:41 CDT Halle Vicki Dejesus [facility] [place] CPT-62697 Ofc Vst, Est Level III 18:35:23 CDT Halle Vicki Dejesus [facility] [place] CPT-99983 Ofc Vst, Est Level III 17:35:56 CDT Halleluz Dejesus [facility] [place] CPT-12394 Ofc Vst, Est Level III 14:32:00 CDT Halleluz Dejesus [facility] [place] CPT-53953 Ofc Vst, Est Level III 09:50:07 CDT Halleluz Dejesus [facility] [place] CPT-22864 Ofc Vst, Est Level III 10:22:24 CDT Halle Dejesus [facility] [place] CPT-95713 Ofc Vst, Est Level III 10:40:11 CDT Halleluz Dejesus [facility] [place] CPT-99345 Ofc Vst, Est Level III 10:02:24 NITRO MAN Halle Dejesus [facility] [place] CPT-58527 Ofc Vst, Est Level III 13:01:39 NITRO MAN Halle Dejesus [facility] [place] CPT-72863 Ofc Vst, Est Level II 10:46:54 NITRO MAN Halle Dejesus [facility] [place] CPT-72225 Ofc Vst, New Level IV 11:39:11 [address] [facility] [place] Procedures Code Procedure Name Date Entry Date Standard Description CPT-G0439 Medicare Annual Wellness Visit 15:48:34 CDT CPT-G8446 E-Prescribing not done due to controlled substance 16:53 :03 CDT CPT-G0439 Medicare Annual Wellness Visit 16:53:03 CDT CPT-G8443 E-Prescribing Medication Sent 19:58:58 NITRO MAN CPT-G8445 E-Prescribing Not sent due to no medication given 21:42: 42 CDT CPT-G8445 E-Prescribing Not sent due to no medication given 15:59: 11 CDT CPT-G8445 E-Prescribing Not sent due to no medication given 14:48: 01 CDT CPT-57791 Injection, Pneumovax 15:32:21 NITRO MAN CPT-G8445 E-Prescribing Not sent due to no medication given 13:27: 30 NITRO MAN CPT-G0438 Medicare Annual Wellness Visit Initial 13:27:30 NITRO MAN CPT-8446 E-Prescribing not done due to controlled substance 11:09: 58 CDT CPT-93533 Injection, Pneumovax 10:21:38 CDT CPT-60888 EKG w/ Interpretation 08:47:25 NITRO MAN
[2018-04-26] MEDS ORDERED: LIDOCAINE PF 2% 5 ML (XYLOCAINE) VIAL ONE (10:42)
[2018-04-26] MEDS ORDERED: proPOfol 200 MG/20 ML (DIPRIVAN) VIAL IV ONE (10:42)
--- NOTE | 2018-04-26 10:45 | Progress Note-Pre Operative ---
Pre-Operative Progress Note H&P Reviewed The H&P was reviewed, patient examined and no changes noted. Date Seen by Provider: Apr 26, 2018 Time Seen by Provider: 10:45 Date H&P Reviewed: Apr 26, 2018 Time H&P Reviewed: 10:45 Pre-Operative Diagnosis: hx antral ulcer BENTLEY VEGA DO Apr 26, 2018 10:45
[2018-04-26] MEDS ORDERED: HURRICAINE EXT TUBE (BENZOCAINE) ONE (10:49)
[2018-04-26] MEDS ORDERED: ceFAZolin 1,000 MG (ANCEF) VIAL ONE (10:58)
--- NOTE | 2018-04-26 11:21 | Progress Note-Post Operative ---
Post-Operative Progess Note Surgeon (s)/Fermenter (s) Surgeon BENTLEY VEGA DO Fermenter: na Pre-Operative Diagnosis hx antral ulcer Post-Operative Diagnosis small hiatal hernia, slight gastritis Procedure & Operative Findings Date of Procedure 04/26/18 Procedure Performed/Findings egd c biopsy antrum Anesthesia Type per clothespin machine operator Estimated Blood Loss Estimated blood loss (mL): none Specimens/Packing Specimens Removed antrum BENTLEY VEGA DO Apr 26, 2018 11:21
--- NOTE | 2018-04-26 11:22 | Discharge Inst-Simple/Standard ---
Discharge Inst-Standard Patient Instructions/Follow Up Plan of Care/Instructions/FU: 2 weeks nieves Activity as Tolerated: Yes Discharge Diet: Regular Diet BENTLEY VEGA DO Apr 26, 2018 11:22
[2018-04-26 11:25] VITALS: BP 173/82
[2018-04-26 11:55] VITALS: BP 163/70
[2018-04-26 12:15] VITALS: BP 163/70
--- NOTE | 2018-04-26 17:59 | OPERATIVE REPORT ---
DATE OF SERVICE: 04/26/2018 PREOPERATIVE DIAGNOSIS: History of antral ulcer. POSTOPERATIVE DIAGNOSES: Small hiatal hernia, slight gastritis. PROCEDURE: EGD with biopsy of antrum. SURGEON: Bentley Taylor DO ANESTHESIA: Per OVERSEAMER. ESTIMATED BLOOD LOSS: None. COMPLICATIONS: None. INDICATIONS: The patient is an 87-year-old female with a history of antral ulcer. She has been on medicine therapy. The patient is having to reevaluate. The patient understands risks and benefits and wished to proceed. Consent signed and on the chart. DESCRIPTION OF PROCEDURE: The patient was taken to the endoscopy suite, placed in the left lateral recumbent position. Timeout was performed. Scope was inserted in the mouth, down the esophagus, stomach and into the duodenum without difficulty. There were no polyps, masses, ulcerations within the duodenum. Scope was then slowly retracted back further insufflated. Slight erythematous changes in the antrum. No ulcer present. Biopsy of the antrum was obtained. Scope was retroflexed noting a small hiatal hernia. No other pathology noted. Scope was returned to its normal position, slowly withdrawn to the distal esophagus, which had normal appearance. No polyps, masses, ulcerations or erythematous changes. Scope was then slowly retracted back to completely remove. The patient tolerated procedure well without complications. She was sent to recovery room in stable condition. RECOMMENDATIONS: The patient to continue on current medical regimen. If she has any difficulties, she should be seen at that time. Otherwise, she will follow up in 2 weeks to discuss pathology. Job ID: [id number] DocumentID: [id number] Dictated Date: 04/26/2018 11:25:32 Maintenance Shop Welder Date: 04/26/2018 17:59:13 Dictated By: BENTLEY TAYLOR DO
== END 2018-04-26 12:05 | disposition home or self-care (01) ==
LOC: ENDO 09:39
PROVIDERS: ATTEND Surgery
DX: K29.70 Gastritis, unspecified, without bleeding (principal); K44.9 Diaphragmatic hernia without obstruction or gangrene; I10 Essential (primary) hypertension; I25.10 Atherosclerotic heart disease of native coronary artery without angina pectoris; E78.5 Hyperlipidemia, unspecified; Z95.5 Presence of coronary angioplasty implant and graft; J44.9 Chronic obstructive pulmonary disease, unspecified; K21.9 Gastro-esophageal reflux disease without esophagitis; Z96.653 Presence of artificial knee joint, bilateral
CPT/HCPCS: 88305

== ENCOUNTER → 2018-05-04 | Outpatient (CLI) | payer MEDICARE ==
[~2018-05-04] MED LIST changes: +RT-ALBUTEROL SULF 2.5 MG/3 ML PRE-MIX VIAL INH ONE; +RT-ALBUTEROL SULF 2.5 MG/3 ML PRE-MIX VIAL ONE
== END ==
LOC: RT 09:36
PROVIDERS: ATTEND Internal Medicine
DX: J44.9 Chronic obstructive pulmonary disease, unspecified (principal)
CPT/HCPCS: 94060; 94726; 94729

== ENCOUNTER → 2018-05-05 | Outpatient (CLI) | payer MEDICARE ==
[~2018-05-05] MED LIST changes: -RT-ALBUTEROL SULF 2.5 MG/3 ML PRE-MIX VIAL INH ONE; -RT-ALBUTEROL SULF 2.5 MG/3 ML PRE-MIX VIAL ONE
--- NOTE | 2018-05-05 11:40 | Diagnostic Imaging Report ---
INDICATION: Peripheral vascular disease with bilateral feet tingling and numbness. Bilateral segmental pressures were obtained. Ankle brachial indices appear to be normal bilaterally measuring 1.1 on the right and 1.09 on the left. IMPRESSION: Normal bilateral ankle brachial indices. Dictated by: Dictated on workstation # [id number]
--- NOTE | 2018-05-05 11:43 | Diagnostic Imaging Report ---
PROCEDURE: US Bilateral lower extremity arterial. TECHNIQUE: Multiple real-time grayscale images are obtained through both lower extremity arterial systems with color Doppler imaging and color Doppler spectral analysis. INDICATION: Peripheral vascular disease with bilateral feet pain and numbness. Predominantly biphasic waveforms are identified throughout both lower extremity arterial systems. Velocities are symmetric bilaterally. No significant velocity elevation or occlusion is seen although the right dorsalis pedis was not visualized. No fluid collection or mass is seen. IMPRESSION: Essentially unremarkable bilateral lower extremity arterial Doppler without evidence of high-grade stenosis or occlusion. Note is made of the right dorsalis pedis was not visualized. Dictated by: Dictated on workstation # [id number]
== END ==
LOC: RAD 09:14
PROVIDERS: ATTEND Internal Medicine
DX: I73.9 Peripheral vascular disease, unspecified (principal)
CPT/HCPCS: 93922; 93925

== ENCOUNTER → 2018-06-02 | Outpatient (CLI) | payer MEDICARE ==
[2018-06-02 11:53] LABS: CREATININE SERUM 1.85 MG/DL (0.60-1.30)
== END ==
LOC: LAB 11:06
PROVIDERS: ATTEND Nurse Practitioner Family
DX: J45.909 Unspecified asthma, uncomplicated (principal)
CPT/HCPCS: 36415; 82565; 84520

== ENCOUNTER → 2018-06-06 | Outpatient (CLI) | payer MEDICARE ==
--- NOTE | 2018-06-06 09:05 | Diagnostic Imaging Report ---
PROCEDURE: US Venous Lower Ext Tushar. TECHNIQUE: Multiple real-time grayscale images were obtained over the lower extremities in various projections, bilaterally. Additional duplex Doppler and color Doppler images were also obtained. INDICATION: Dyspnea. FINDINGS: There is no evidence of right or left lower extremity DVT. Both lower extremity deep venous systems demonstrate normal compressibility with normal response to augmentation and Valsalva. No fluid collection or mass is seen. IMPRESSION: No evidence of right or left lower extremity DVT. Dictated by: Dictated on workstation # [id number]
--- NOTE | 2018-06-06 12:15 | Diagnostic Imaging Report ---
PROCEDURE: CT chest without contrast. TECHNIQUE: Multiple contiguous axial images were obtained through the chest without the use of intravenous contrast. INDICATION: Chest pain and palpitations. COMPARISON: No prior CT chest is available for comparison. FINDINGS: No axillary lymphadenopathy is identified. Hilar and mediastinal evaluation is limited without intravenous contrast but no significant abnormality is seen. There are coronary arterial calcifications present. No pericardial or pleural fluid is identified. There does appear to be some scarring or atelectasis in the medial right lower lobe. Otherwise the lungs are clear. No mass is identified. The upper abdomen is unremarkable. Bony structures are nonacute. IMPRESSION: Essentially unremarkable noncontrast CT of the chest. No definite thoracic mass or lymphadenopathy is seen. Dictated by: Dictated on workstation # [id number]
== END ==
LOC: RAD 08:05
PROVIDERS: ATTEND Internal Medicine Critical Care Medicine
DX: J45.909 Unspecified asthma, uncomplicated (principal); R00.2 Palpitations; Z87.891 Personal history of nicotine dependence
CPT/HCPCS: 71250; 93970

== ENCOUNTER 2018-06-25 19:55 | Outpatient (CLI) | payer MEDICARE | END 2018-06-26 05:49 | disposition home or self-care (01) | LOC: SLEEP 19:55 | PROVIDERS: ATTEND Nurse Practitioner Family | DX: G47.33 Obstructive sleep apnea (adult) (pediatric) (principal); G47.61 Periodic limb movement disorder; I10 Essential (primary) hypertension | CPT/HCPCS: 95810 ==

== ENCOUNTER 2018-08-04 12:19 | Emergency (ER) | payer MEDICARE ==
[~2018-08-04] VITALS: Ht 162.6 cm; Wt 68.0 kg
[~2018-08-04 12:19] MED LIST changes: +AMLO5TAB7 PO; -LOSA50TA36 PO; +LOSA50TA7 PO
[2018-08-04 13:08] LABS: BILIRUBIN,URINE NEGATIVE (NEGATIVE); CLARITY,URINE CLEAR; COLOR,URINE YELLOW; GLUCOSE, URINE (UA) NEGATIVE (NEGATIVE); KETONES,URINE NEGATIVE (NEGATIVE); LEUKOCYTE ESTERASE ,URINE 1+ (NEGATIVE); NITRITE,URINE NEGATIVE (NEGATIVE); PH,URINE 6 (5-9); PROTEIN,URINE NEGATIVE (NEGATIVE); UROBILINOGEN,URINE NORMAL (NORMAL)
--- NOTE | 2018-08-04 13:09 | ED Back Pain ---
General Stated Complaint: LOWER LEFT BACK PAIN Source of Information: Patient, Family (Son) Exam Limitations: No Limitations (TRINI BALDERRAMA MED STUDENT) History of Present Illness Date Seen by Provider: Aug 04, 2018 Time Seen by Provider: 13:04 Initial Comments Patient is an 87 year old female who presents to the ED with left lower back pain x3 weeks. The pain has worsened over the past 2 days and is described as sharp stabbing pain. She had an appointment with Dr. Sierra today at 1345 however the pain was severe enough that Dr. Sierra told her to come to the ED. She denies that the pain radiates or changed in location since the onset. The pain is worse with movement. She denies any dysuria, blood in urine and constipation. Denies any trauma or falls. Denies fever and chills. She has taken tylenol and meloxicam for the pain with minimal relief. Location: Paraspinous Muscles, Other (Progresses into gluteal area) Timing/Duration: Getting Worse, Other (3 weeks but worsening over the last 2 days. ) Severity: Moderate Pain/Injury Location: Back (Left) Method of Injury: Unknown Modifying Factors: Worse With Movement Associated Symptoms: No muscle spasms, No fever, No weakness, No numbness in legs/feet; lower back pain (left); No loss of bladder control, No loss of bowel control (TRINI BALDERRAMA MED STUDENT) Allergies and Home Medications Allergies Coded Allergies: aspirin (Verified Allergy, Mild, 02/07/10) codeine (Verified Allergy, Mild, 02/07/10) oxycodone (Verified Allergy, Mild, 02/07/10) rofecoxib (Verified Allergy, Mild, 02/07/10) Home Medications Albuterol Sulfate 1 Puff Puff, 2 PUFF IH Q4H PRN for SHORTNESS OF BREATH, ( Reported) 1 PUFF = 90 MCG Alprazolam 0.5 Mg Tablet, 0.5 MG PO TID PRN for ANXIETY, (Reported) Amlodipine Besylate 5 Mg Tablet, 7.5 MG PO DAILY, (Reported) take 1 1/2 of 5mg tab for 7.5mg total Aspirin 81 Mg Tablet.dr, 81 MG PO DAILY, (Reported) Cyclobenzaprine HCl 5 Mg Tablet, 5 MG PO TID Prescribed by: KAYCEE WAHL on 08/04/18 1440 Fluticasone/Salmeterol 1 Each Blst.w.dev, 1 EACH IH BID, (Reported) Losartan Potassium 50 Mg Tablet, 50 MG PO DAILY, (Reported) Magnesium Oxide 250 Mg Tablet, 250 MG PO HS, (Reported) Pantoprazole Sodium 40 Mg Tablet.dr, 40 MG PO DAILY, (Reported) Pravastatin Sodium 20 Mg Tablet, 20 MG PO HS, (Reported) Prednisone 10 Mg Tab, 1 TAB PO DAILY Prescribed by: KAYCEE WAHL on 08/04/18 1440 Ranitidine HCl 150 Mg Tablet, 150 MG PO BID, (Reported) Patient Home Medication List Home Medication List Reviewed: Yes (KAYCEE TELLO MD) Review of Systems Constitutional: No chills, No dizziness, No fever EENTM: no symptoms reported Respiratory: no symptoms reported Cardiovascular: no symptoms reported Gastrointestinal: No abdominal pain, No constipation, No diarrhea, No nausea, No vomiting Genitourinary: No decreased output, No dysuria, No frequency, No hematuria; hesitancy; No incontinence Musculoskeletal: back pain (Left lower) Skin: no symptoms reported Psychiatric/Neurological: No Symptoms Reported (TRINI BALDERRAMA MED STUDENT) Past Hbbeqcq-Wywqot-[id number] Hx Past Med/Social Hx: Reviewed Nursing Past Med/Soc Hx (KAYCEE TELLO MD) Patient Social History Type Used: Cigarettes Former Smoker, Quit: Mar 08, 1980 Recent Hopitalizations: No (TRINI BALDERRAMA MED STUDENT) Immunizations Up To Date Tetanus Booster (TDap): Unknown PED Vaccines UTD: No Date of Pneumonia Vaccine: April 20, 2013 Date of Influenza Vaccine: Aug 22, 2017 (TRINI BALDERRAMA STUDENT) Seasonal Allergies Seasonal Allergies: No (TRINI BALDERRAMA STUDENT) Past Medical History Coronary Stent, Joint Replacement, Orthopedic Asthma, COPD Currently Using CPAP: No Currently Using BIPAP: No Chronic Edema/Swelling, Coronary Artery Disease, High Cholesterol, Hypertension Reproductive Disorders: No Female Reproductive Disorders: Denies Sexually Transmitted Disease: No HIV/AIDS: No Renal Failure Gastroesophageal Reflux, Ulcer Arthritis Cataract Loss of Vision: Denies Hearing Impairment: Hard of Hearing Eczema Adverse Reaction/Blood Tranf: No (TRINI BALDERRAMA MED STUDENT) Ulcer (esophageal) (KAYCEE TELLO MD) Family Medical History Reviewed Nursing Family Hx (KAYCEE TELLO MD) Abdominal aortic aneurysm 19 FATHER Aphasia G8 SISTER Arthritis 19 MOTHER Cardiovascular disease 19 MOTHER G8 BROTHER Completed stroke G8 SISTER Deafness or hearing loss 19 MOTHER Dementia 19 MOTHER Gastroenteritis 19 MOTHER Hypertension 19 MOTHER G8 SISTER Myocardial infarction G8 BROTHER Psychosocial problem G8 SISTER Respiratory disorder 19 MOTHER G8 BROTHER Thyroid disease G8 BROTHER No Family History of: AIDS Ed's disease Alcoholism Alzheimer's disease Asthma Cancer of mouth Cataracts Colon cancer Congenital disease Congenital heart disease Coronary thrombosis Cystic fibrosis Diabetes mellitus Drug abuse Dysphasia Fibrocystic disease of breast Glaucoma Headache disorder Hypercholesterolemia Infertility Kidney disease Neoplasm Not obtainable due to adoption Osteoporosis Parkinson's disease Prostate cancer Seizure disorder Severe allergy Tuberculosis Visual disorder No Pertinent Family Hx (TRINI BALDERRAMA STUDENT) Physical Exam Vital Signs Vital Signs - First Documented 08/04/18 13:20 Temp 98.9 Pulse 68 Resp 18 B/P (MAP) 190/59 (102) Pulse Ox 100 O2 Delivery Room Air (KAYCEE TELLO MD) Vital Signs Capillary Refill : (TRINI BALDERRAMA MED STUDENT) Height, Weight, BMI Height: 5'0.00" Weight: 171lbs. 0.0oz. [id number]; 33.4 BMI Method:Stated General Appearance: Moderate Distress HEENT: PERRL/EOMI Neck: Non Tender, Supple Cardiovascular: Regular Rate, Rhythm, No Murmur Respiratory: Lungs Clear, Normal Breath Sounds, No Accessory Muscle Use, No Respiratory Distress Gastrointestinal: Normal Bowel Sounds, Non Tender, Soft; No Guarding, No Rebound Back: No CVA Tenderness, Other (Left paraspinal muscle tenderness L3-L5 with progression down into the gluteal muscles) Extremity: Non Tender, No Calf Tenderness, No Pedal Edema Neurologic/Psychiatric: Alert, Oriented x3, No Motor/Sensory Deficits, Normal Mood/Affect Skin: Normal Color, Warm/Dry (TRINI BALDERRAMA MED STUDENT) Progress/Results/Core Measures Results/Orders Lab Results Laboratory Tests Test 08/04/18 12:40 Range/Units Urine Color YELLOW Urine Clarity CLEAR Urine pH 6 5-9 Urine Specific [place] 1.010 L 1.016-1.022 Urine Protein NEGATIVE NEGATIVE Urine Glucose (UA) NEGATIVE NEGATIVE Urine Ketones NEGATIVE NEGATIVE Urine Nitrite NEGATIVE NEGATIVE Urine Bilirubin NEGATIVE NEGATIVE Urine Urobilinogen NORMAL NORMAL MG/DL Urine Leukocyte Esterase 1+ H NEGATIVE Urine RBC (Auto) NEGATIVE NEGATIVE Urine RBC NONE /HPF Urine WBC NONE /HPF Urine Squamous Epithelial Cells RARE /HPF Urine Crystals NONE /LPF Urine Bacteria NEGATIVE /HPF Urine Casts NONE /LPF Urine Mucus NEGATIVE /LPF Urine Culture Indicated NO (KAYCEE TELLO MD) My Orders Orders - KAYCEE TELLO MD Ua Culture If Indicated (08/04/18 12:50) Methylprednisolone Sod Succ (Solu-Medrol (08/04/18 13:45) Ketorolac Injection (Toradol Injection) (08/04/18 13:45) Orphenadrine Injection (Norflex Injectio (08/04/18 13:45) Iv Push Automation And Controls Instructor Ed (08/04/18 ) Im/Sub-Q Injection Non-Ab Ed (08/04/18 ) (KAYCEE TELLO MD) Medications Given in ED (KAYCEE TELLO MD) Vital Signs/I&O 08/04/18 08/04/18 13:20 14:48 Temp 98.9 98.0 Pulse 68 86 Resp 18 20 B/P (MAP) 190/59 (102) 180/69 Pulse Ox 100 96 O2 Delivery Room Air Room Air (KAYCEE TELLO MD) Progress Progress Note : Progress Note This patient and family were personally interviewed by me, and patient was examined by me personally along with Trini Balderrama, MS4. I agree with her history, documentation, exam, assessment, and plan with the following additions. Patient was found to have tenderness in the left lower paraspinous muscles and extending down toward the gluteus muscles. Pain seems to be musculoskeletal in nature. UA was unremarkable. Patient was treated with Solu- Medrol, Toradol, and Norflex with excellent results. She was ambulatory without pain prior to discharge. Exam: Gen.: Alert, oriented, mild distress from back pain HEENT: Normocephalic and atraumatic, mucous membranes moist, Chest: Clear to auscultation bilaterally with normal effort Abdomen: Soft, nontender, nondistended Musculoskeletal: Tenderness over the left lower paraspinous muscles and extending toward the gluteus muscle. Muscle tension noted. Extremities: No significant edema, otherwise normal to inspection Neuro/psych: Alert, oriented, no focal deficits, normal gait (KAYCEE TELLO MD) Departure Impression Primary Impression: Lower back pain Qualified Codes: M54.5 - Low back pain Disposition: 01 HOME, SELF-CARE Condition: Improved Departure-Patient Inst. Decision time for Depature: 14:35 (KAYCEE TELLO MD) Referrals: ATHIR MARTINEZ DO (PCP/Family) Primary Care Physician Patient Instructions: Low Back Pain (DC) Add. Discharge Instructions: You may take Tylenol (acetaminophen) up to 1000 mg every 6 hours as needed. For pain not controlled by Tylenol, consider taking meloxicam (Mobic) or ibuprofen sparingly up to 400 mg twice daily. Always take these medications with food or milk to avoid irritation of your stomach. If your pain or spasms or rebound, you may start the redness own and cyclobenzaprine prescribed. Take prednisone with food or milk to avoid stomach irritation and take it early in the day to avoid sleep disturbance. Use cyclobenzaprine cautiously as it may cause drowsiness. Return to care promptly if symptoms are worsening. Scripts Prednisone (Prednisone) 10 Mg Tab 1 TAB PO DAILY, #3 TAB Prov: KAYCEE TELLO MD 08/04/18 Cyclobenzaprine HCl (Cyclobenzaprine HCl) 5 Mg Tablet 5 MG PO TID, #10 TAB Prov: KAYCEE TELLO MD 08/04/18 TRINI BALDERRAMA MED STUDENT Aug 04, 2018 13:09 KAYCEE TELLO MD Aug 04, 2018 14:40
[2018-08-04 13:19] LABS: BACTERIA,URINE NEGATIVE /HPF; SQUAMOUS EPITHELIAL CELL,UR RARE /HPF
[2018-08-04] MEDS ORDERED: methylPREDNISolone 125 MG (Solu-MEDROL) VIAL IVP ONE (13:45)
[2018-08-04] MEDS ORDERED: ORPHENADRINE 60 MG/2 ML (NORFLEX) AMP IM ONE (13:45)
[2018-08-04] MEDS ORDERED: KETOROLAC 30 MG/ML VIAL IVP ONE (13:45)
[2018-08-04] MEDS ORDERED: CYCL5TAB PO (14:40)
[2018-08-04] MEDS ORDERED: PRD10T PO (14:40)
[2018-08-04 14:48] VITALS: BP 180/69
== END 2018-08-04 14:50 | disposition home or self-care (01) ==
LOC: EDUNIT# 12:19 → ER 12:21
DX: M54.5 Low back pain (principal); J44.9 Chronic obstructive pulmonary disease, unspecified; I25.10 Atherosclerotic heart disease of native coronary artery without angina pectoris; I10 Essential (primary) hypertension; I73.9 Peripheral vascular disease, unspecified; K21.9 Gastro-esophageal reflux disease without esophagitis; Z82.49 Family history of ischemic heart disease and other diseases of the circulatory system; Z87.19 Personal history of other diseases of the digestive system; Z88.6 Allergy status to analgesic agent; Z88.5 Allergy status to narcotic agent; Z88.8 Allergy status to other drugs, medicaments and biological substances; Z79.82 Long term (current) use of aspirin; Z79.51 Long term (current) use of inhaled steroids; Z87.891 Personal history of nicotine dependence
CPT/HCPCS: 81000; 96372; 96374; 96375

== ENCOUNTER → 2018-08-09 | Outpatient (CLI) | payer MEDICARE ==
[~2018-08-09] MED LIST changes: +CYCL5TAB PO; +PRD10T PO
--- NOTE | 2018-08-09 17:56 | Diagnostic Imaging Report ---
INDICATION: Back pain, left hip pain. FINDINGS: There is no fracture, dislocation, avulsion or acute appearing articular incongruity. IMPRESSION: No acute-appearing abnormality. Dictated by: Dictated on workstation # [id number]
--- NOTE | 2018-08-09 17:57 | Diagnostic Imaging Report ---
INDICATION: Back pain, left hip pain. FINDINGS: AP pelvic radiograph reveals no fracture or dislocation. There are arthritic changes to the bilateral hips, symphysis and SI joints as well as the visualized lower lumbar spine. IMPRESSION: Degenerative changes but no acute appearing osseous abnormality radiographically apparent. Dictated by: Dictated on workstation # [id number]
--- NOTE | 2018-08-09 18:00 | Diagnostic Imaging Report ---
INDICATION: Pain. FINDINGS: Lumbar statures are within normal limits. There is anterolistheses of L3 on L4 and L4 on L5 grade 1, maximal 8 mm at the L4-L5 level. There is degenerative disc space narrowing, endplate sclerosis, osteophytes and facet arthrosis throughout the lumbar spine. No acute appearing endplate irregularity. 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 Dictated by: Dictated on workstation # [id number]
== END ==
LOC: RAD 17:08
PROVIDERS: ATTEND Internal Medicine
DX: M16.0 Bilateral primary osteoarthritis of hip (principal); M47.816 Spondylosis without myelopathy or radiculopathy, lumbar region; M43.16 Spondylolisthesis, lumbar region
CPT/HCPCS: 72100; 72170; 73502

== ENCOUNTER 2018-09-21 11:15 | Outpatient (RCR) | payer MEDICARE, OTHER | END 2018-09-21 11:53 | disposition home or self-care (01) | PROVIDERS: ATTEND Internal Medicine | DX: M54.41 Lumbago with sciatica, right side (principal); M54.42 Lumbago with sciatica, left side ==

== ENCOUNTER 2019-04-03 08:19 | Emergency (ER) | payer MEDICARE ==
[~2019-04-03] VITALS: Ht 152.4 cm; Wt 72.6 kg
[~2019-04-03 08:19] MED LIST changes: -AMLO5TAB7 PO; +AMLO5TAB9 PO; +LOSA50TA63 PO; -LOSA50TA7 PO
--- NOTE | 2019-04-03 08:42 | ED Lower Extremity ---
General Chief Complaint: Lower Extremity Stated Complaint: LEFT FOOT/TOES INJURY Nursing Triage Note: PT TO ROOM 6 PER W/C PT CO OF STUBBING TOES ON L FOOT LAST NIGHT DURING NITE, PT CO OF TOES AND OUTER SIDE OF L FOOT PAIN 10/10 AT TIMES Nursing Sepsis Screen: No Definite Risk Source: patient, family (Lucio FISHER) Exam Limitations: no limitations History of Present Illness Date Seen by Provider: April 03, 2019 Time Seen by Provider: 08:28 Initial Comments The patient presents to ER by private conveyance with chief complaint that last night she was going to bed she stubbed her unprotected left foot on the lateral toes against the canister holding her bed up. She has not lost any feeling in her toes. She's not on a blood thinner but does take an 81 mg aspirin. She had quite a bit of pain but she went ahead and went to bed in the morning she still was not able to put any significant weight on the foot and had very difficult time walking so she called her family member to bring her to the ER to have it checked out. No history of fracture or surgery to this foot before. Allergies and Home Medications Allergies Coded Allergies: aspirin (Verified Allergy, Mild, 02/07/10) codeine (Verified Allergy, Mild, 02/07/10) oxycodone (Verified Allergy, Mild, 02/07/10) rofecoxib (Verified Allergy, Mild, 02/07/10) Home Medications Albuterol Sulfate 1 Puff Puff, 2 PUFF IH Q4H PRN for SHORTNESS OF BREATH, ( Reported) 1 PUFF = 90 MCG Alprazolam 0.5 Mg Tablet, 0.5 MG PO TID PRN for ANXIETY, (Reported) Amlodipine Besylate 5 Mg Tablet, 7.5 MG PO DAILY, (Reported) take 1 1/2 of 5mg tab for 7.5mg total Aspirin 81 Mg Tablet.dr, 81 MG PO DAILY, (Reported) Cyclobenzaprine HCl 5 Mg Tablet, 5 MG PO TID Prescribed by: KAYCEE WAHL on 08/04/18 1440 Fluticasone/Salmeterol 1 Each Blst.w.dev, 1 EACH IH BID, (Reported) Losartan Potassium 50 Mg Tablet, 50 MG PO DAILY, (Reported) Magnesium Oxide 250 Mg Tablet, 250 MG PO HS, (Reported) Pantoprazole Sodium 40 Mg Tablet.dr, 40 MG PO DAILY, (Reported) Pravastatin Sodium 20 Mg Tablet, 20 MG PO HS, (Reported) Prednisone 10 Mg Tab, 1 TAB PO DAILY Prescribed by: KAYCEE WAHL on 08/04/18 1440 Ranitidine HCl 150 Mg Tablet, 150 MG PO BID, (Reported) Patient Home Medication List Home Medication List Reviewed: Yes Review of Systems Constitutional: No chills, No malaise EENTM: No hearing loss, No ear pain Respiratory: No cough, No phlegm, No short of breath Cardiovascular: No chest pain, No edema Gastrointestinal: No abdominal pain, No nausea Past Oqqllrs-Yrhbyt-Crutyw Hx Patient Social History Alcohol Use: Denies Use Recreational Drug Use: No Smoking Status: Former Smoker Type Used: Cigarettes Former Smoker, Quit: Mar 08, 1980 Recent Foreign Travel: No Contact w/Someone Who Travel: No Recent Infectious Disease Expo: No Recent Hopitalizations: No Immunizations Up To Date Tetanus Booster (TDap): Unknown PED Vaccines UTD: No Date of Pneumonia Vaccine: April 20, 2013 Date of Influenza Vaccine: Aug 22, 2017 Seasonal Allergies Seasonal Allergies: No Past Medical History Surgeries: Yes (hernia, BILAT TKR) Coronary Stent, Joint Replacement, Orthopedic Respiratory: Yes (ASTHMA) Asthma, COPD Currently Using CPAP: No Currently Using BIPAP: No Cardiac: Yes (STENT X1) Chronic Edema/Swelling, Coronary Artery Disease, High Cholesterol, Hypertension Neurological: No Reproductive Disorders: No Female Reproductive Disorders: Denies Sexually Transmitted Disease: No HIV/AIDS: No Renal Failure Gastrointestinal: Yes Ulcer Musculoskeletal: Yes (OSTEOARTHRITIS) Arthritis Endocrine: No Cataract Loss of Vision: Denies Hearing Impairment: Hard of Hearing Cancer: No Psychosocial: No Integumentary: Yes Eczema Blood Disorders: No Adverse Reaction/Blood Tranf: No Family Medical History Abdominal aortic aneurysm 19 FATHER Aphasia G8 SISTER Arthritis 19 MOTHER Cardiovascular disease 19 MOTHER G8 BROTHER Completed stroke G8 SISTER Deafness or hearing loss 19 MOTHER Dementia 19 MOTHER Gastroenteritis 19 MOTHER Hypertension 19 MOTHER G8 SISTER Myocardial infarction G8 BROTHER Psychosocial problem G8 SISTER Respiratory disorder 19 MOTHER G8 BROTHER Thyroid disease G8 BROTHER No Family History of: AIDS [place]'s disease Alcoholism Alzheimer's disease Asthma Cancer of mouth Cataracts Colon cancer Congenital disease Congenital heart disease Coronary thrombosis Cystic fibrosis Diabetes mellitus Drug abuse Dysphasia Fibrocystic disease of breast Glaucoma Headache disorder Hypercholesterolemia Infertility Kidney disease Neoplasm Not obtainable due to adoption Osteoporosis Parkinson's disease Prostate cancer Seizure disorder Severe allergy Tuberculosis Visual disorder No Pertinent Family Hx Physical Exam Vital Signs Vital Signs - First Documented 04/03/19 08:20 Temp 96.9 Pulse 74 Resp 18 B/P (MAP) 151/76 (101) Pulse Ox 100 Capillary Refill : Less Than 3 Seconds Height, Weight, BMI Height: 5'0" Weight: 160lbs. 0.0oz. [id number]; 33.4 BMI Method:Stated General Appearance: WD/WN, no apparent distress HEENT: PERRL/EOMI, pharynx normal Neck: full range of motion, normal inspection Cardiovascular: normal peripheral pulses, regular rate, rhythm Respiratory: no respiratory distress, no accessory muscle use Legs: bilateral leg non-tender, bilateral leg normal inspection, bilateral leg normal range of motion, bilateral leg no evidence of injury Ankles: bilateral ankle non-tender, bilateral ankle normal inspection, bilateral ankle normal range of motion, bilateral ankle no evidence of injury Feet: right foot non-tender; bilateral foot normal inspection, bilateral foot normal range of motion; right foot no evidence of injury; left foot bone tenderness (tenderness over the lateral 3 metatarsals), left foot pain Neurologic/Tendon: normal sensation, normal motor functions, normal tendon functions, responds to pain, no evidence tendon injury Neurologic/Psychiatric: no motor/sensory deficits, alert, normal mood/affect, oriented x 3 Skin: normal color, warm/dry Progress/Results/Core Measures Results/Orders My Orders Orders - LEVY ORTIZ Foot, Left, 3 Views (04/03/19 08:35) Vital Signs/I&O 04/03/19 08:20 Temp 96.9 Pulse 74 Resp 18 B/P (MAP) 151/76 (101) Pulse Ox 100 Blood Pressure Mean: 101 Progress Progress Note : Time: 08:39 Progress Note Patient states her pain is okay as long as she is not moving or trying to bear weight and does not want anything else for pain. She did take Tylenol an hour ago. We offered an ice pack declined. X-ray foot 3 view. Diagnostic Imaging Diagonstic Imaging: Xray Plain Films/CT/US/NM/MRI: knee Comments [facility], [place] NAME: MINDY FISHER [facility] REC#: [id number] PT STATUS: REG ER : 1930 PHYSICIAN: LEVY ORTIZ MD ADMIT DATE: 04/03/19/ER Draft Date of Exam:04/03/19 FOOT, LEFT, 3 VIEWS PATIENT HISTORY: Injury to the toes in the left foot. Pain at the toes in the fifth metatarsal. COMPARISON: None FINDINGS: Three views of the left foot were performed. There are moderate degenerative changes in the tarsometatarsal joints and the first metatarsophalangeal joint. No acute fracture is seen. There is a small plantar calcaneal enthesophyte. There is mild diffuse soft tissue edema. There is calcific atherosclerosis. IMPRESSION: 1. 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 Dictated on workstation # [id number] Dict: 04/03/19 0859 Trans: 04/03/19 0903 [facility] [id number] Interpreted by: ALINA MATHUR MD Electronically signed by: Reviewed: Reviewed by Me Departure Impression Primary Impression: Contusion of foot Qualified Codes: S90.32XA - Contusion of left foot, initial encounter Disposition: 01 HOME, SELF-CARE Condition: Stable Departure-Patient Inst. Decision time for Depature: 09:13 Referrals: TAHIR MARTINEZ DO (PCP) Primary Care Physician Patient Instructions: Foot Sprain (DC) Add. Discharge Instructions: For the next 1-2 days apply an ice pack every 4 hours to your left foot. Use Tylenol 1000 mg every 8 hours in addition to ibuprofen 800 mg every 8 hours as necessary for pain. You can elevate your foot above the level of your heart doctor having throbbing or pain. Should see some improvement in 1-2 weeks. All discharge instructions reviewed with patient and/or family. Voiced understanding. LEVY ORTIZ April 03, 2019 08:42
--- NOTE | 2019-04-03 09:04 | Diagnostic Imaging Report ---
PATIENT HISTORY: Injury to the toes in the left foot. Pain at the toes in the fifth metatarsal. COMPARISON: None FINDINGS: Three views of the left foot were performed. There are moderate degenerative changes in the tarsometatarsal joints and the first metatarsophalangeal joint. No acute fracture is seen. There is a small plantar calcaneal enthesophyte. There is mild diffuse soft tissue edema. There is calcific atherosclerosis. IMPRESSION: 1. 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 Dictated by: Dictated on workstation # [id number]
[2019-04-03 09:30] VITALS: BP 176/76
== END 2019-04-03 09:30 | disposition home or self-care (01) ==
LOC: EDUNIT# 08:19 → ER 08:20
DX: S90.32XA Contusion of left foot, initial encounter (principal); J44.9 Chronic obstructive pulmonary disease, unspecified; I25.10 Atherosclerotic heart disease of native coronary artery without angina pectoris; E78.00 Pure hypercholesterolemia, unspecified; I10 Essential (primary) hypertension; Z82.49 Family history of ischemic heart disease and other diseases of the circulatory system; Z87.19 Personal history of other diseases of the digestive system; Z88.6 Allergy status to analgesic agent; Z88.5 Allergy status to narcotic agent; Z88.1 Allergy status to other antibiotic agents; Z79.82 Long term (current) use of aspirin; Z79.51 Long term (current) use of inhaled steroids; Z79.52 Long term (current) use of systemic steroids; Z87.891 Personal history of nicotine dependence; Z95.5 Presence of coronary angioplasty implant and graft; Z96.653 Presence of artificial knee joint, bilateral; W22.09XA Striking against other stationary object, initial encounter
CPT/HCPCS: 73630

== ENCOUNTER 2019-04-11 16:47 | Emergency (ER) | payer MEDICARE ==
[~2019-04-11] VITALS: Ht 152.4 cm; Wt 72.6 kg
--- NOTE | 2019-04-11 17:09 | ED Integumentary General ---
General Chief Complaint: Trauma-Non Activation Stated Complaint: FALL Nursing Triage Note: TO ROOM 08 VIA EMS. FELL AT HOME OUTSIDE WHEN SHE SLIPPED IN THE MUD. DENIES HITTING HER HEAD, LOC, OR NECK PAIN. STATES SHE LANDED ON HER BUTT. SKIN TEAR NOTED RIGHT LOWER ARM. Source: patient, EMS Exam Limitations: no limitations History of Present Illness Date Seen by Provider: April 11, 2019 Time Seen by Provider: 17:06 Initial Comments Slipped in mud in her yard and landed on buttock at home just [employer], has skin tear to dorsal proximal right forearm/elbow. Full range of motion of the elbow or shoulder wrist, no deformity. Did not hit her head, denies neck pain. Denies hip pain. Denies back pain. Timing/Duration: just prior to arrival, constant Severity: mild Location: extremities Allergies and Home Medications Allergies Coded Allergies: aspirin (Verified Allergy, Mild, 02/07/10) codeine (Verified Allergy, Mild, 02/07/10) oxycodone (Verified Allergy, Mild, 02/07/10) rofecoxib (Verified Allergy, Mild, 02/07/10) Home Medications Albuterol Sulfate 1 Puff Puff, 2 PUFF IH Q4H PRN for SHORTNESS OF BREATH, (Reported) 1 PUFF = 90 MCG Alprazolam 0.5 Mg Tablet, 0.5 MG PO TID PRN for ANXIETY, (Reported) Amlodipine Besylate 5 Mg Tablet, 7.5 MG PO DAILY, (Reported) take 1 1/2 of 5mg tab for 7.5mg total Aspirin 81 Mg Tablet.dr, 81 MG PO DAILY, (Reported) Cyclobenzaprine HCl 5 Mg Tablet, 5 MG PO TID Prescribed by: KAYCEE WAHL on 08/04/18 1440 Fluticasone/Salmeterol 1 Each Blst.w.dev, 1 EACH IH BID, (Reported) Losartan Potassium 50 Mg Tablet, 50 MG PO DAILY, (Reported) Magnesium Oxide 250 Mg Tablet, 250 MG PO HS, (Reported) Pantoprazole Sodium 40 Mg Tablet.dr, 40 MG PO DAILY, (Reported) Pravastatin Sodium 20 Mg Tablet, 20 MG PO HS, (Reported) Prednisone 10 Mg Tab, 1 TAB PO DAILY Prescribed by: KAYCEE WAHL on 08/04/18 1440 Ranitidine HCl 150 Mg Tablet, 150 MG PO BID, (Reported) Patient Home Medication List Home Medication List Reviewed: Yes Review of Systems Review of Systems Constitutional: see HPI EENTM: see HPI Respiratory: no symptoms reported Cardiovascular: no symptoms reported Genitourinary: no symptoms reported Musculoskeletal: no symptoms reported Skin: see HPI Psychiatric/Neurological: No Symptoms Reported Endocrine: No Symptoms Reported Past Vdvljbu-Fblnwk-Ksgkad Hx Patient Social History Alcohol Use: Denies Use Recreational Drug Use: No Smoking Status: Former Smoker Type Used: Cigarettes Former Smoker, Quit: Mar 08, 1980 Recent Foreign Travel: No Contact w/Someone Who Travel: No Recent Infectious Disease Expo: No Recent Hopitalizations: No Immunizations Up To Date Tetanus Booster (TDap): Unknown PED Vaccines UTD: No Date of Pneumonia Vaccine: April 20, 2013 Date of Influenza Vaccine: Aug 22, 2017 Seasonal Allergies Seasonal Allergies: No Past Medical History Surgeries: Yes (hernia, BILAT TKR) Coronary Stent, Joint Replacement, Orthopedic Respiratory: Yes (ASTHMA) Asthma, COPD Currently Using CPAP: No Currently Using BIPAP: No Cardiac: Yes (STENT X1) Chronic Edema/Swelling, Coronary Artery Disease, High Cholesterol, Hypertension Neurological: No Reproductive Disorders: No Female Reproductive Disorders: Denies Sexually Transmitted Disease: No HIV/AIDS: No Renal Failure Gastrointestinal: Yes Ulcer Musculoskeletal: Yes (OSTEOARTHRITIS) Arthritis Endocrine: No Cataract Loss of Vision: Denies Hearing Impairment: Hard of Hearing Cancer: No Psychosocial: No Integumentary: Yes Eczema Blood Disorders: No Adverse Reaction/Blood Tranf: No Family Medical History Abdominal aortic aneurysm 19 FATHER Aphasia G8 SISTER Arthritis 19 MOTHER Cardiovascular disease 19 MOTHER G8 BROTHER Completed stroke G8 SISTER Deafness or hearing loss 19 MOTHER Dementia 19 MOTHER Gastroenteritis 19 MOTHER Hypertension 19 MOTHER G8 SISTER Myocardial infarction G8 BROTHER Psychosocial problem G8 SISTER Respiratory disorder 19 MOTHER G8 BROTHER Thyroid disease G8 BROTHER No Family History of: AIDS Ed's disease Alcoholism Alzheimer's disease Asthma Cancer of mouth Cataracts Colon cancer Congenital disease Congenital heart disease Coronary thrombosis Cystic fibrosis Diabetes mellitus Drug abuse Dysphasia Fibrocystic disease of breast Glaucoma Headache disorder Hypercholesterolemia Infertility Kidney disease Neoplasm Not obtainable due to adoption Osteoporosis Parkinson's disease Prostate cancer Seizure disorder Severe allergy Tuberculosis Visual disorder No Pertinent Family Hx Physical Exam Vital Signs Vital Signs - First Documented 04/11/19 16:47 Temp 98.0 Pulse 83 Resp 16 B/P (MAP) 170/81 (110) Pulse Ox 98 O2 Delivery Room Air Capillary Refill : Less Than 3 Seconds General Appearance: WD/WN, no apparent distress, other (no scalp hematoma or laceration to suggest head ijury. ) HEENT: PERRL/EOMI, normal ENT inspection Neck: non-tender, full range of motion; No tender lateral, No tender midline Respiratory: no respiratory distress, no accessory muscle use Gastrointestinal: normal bowel sounds, non tender, soft Extremities: normal range of motion, non-tender, other (1 2.5 cm laceration to the posterior right elbow, an additional skin tear to the dorsal proximal right forearm that measures 7 cm. Both of these are very superficial and would not hold a stitch. These were cleansed with chlorhexidine/saline solution then pulled together with Steri-Strips, nonadherent gauze and Coban and. We will update her tetanus shot.) Neurologic/Psychiatric: alert, normal mood/affect, oriented x 3 Skin: normal color, warm/dry Progress/Results/Core Measures Results/Orders My Orders Orders - MANDIE GARAY APRN Dipht,Pertuss(Acell),Tet Adult (Boostrix (04/11/19 17:15) Vital Signs/I&O 04/11/19 16:47 Temp 98.0 Pulse 83 Resp 16 B/P (MAP) 170/81 (110) Pulse Ox 98 O2 Delivery Room Air Blood Pressure Mean: 110 Departure Impression Primary Impression: Fall at home Qualified Codes: W19.XXXA - Unspecified fall, initial encounter; Y92.009 - Unspecified place in unspecified non-institutional (private) residence as the place of occurrence of the external cause Additional Impression: Skin tear Disposition: 01 HOME, SELF-CARE Condition: Stable Departure-Patient Inst. Decision time for Depature: 17:09 Referrals: TAIHR MARTINEZ DO (PCP) Primary Care Physician Patient Instructions: Wound Care Add. Discharge Instructions: 1. Keep this clean and covered and dry for the next 2-3 days. The Steri-Strips will fall off in about that time. Follow-up with her doctor next week for recheck. All discharge instructions reviewed with patient and/or family. Voiced understanding. Scripts Cephalexin (Cephalexin) 500 Mg Tablet 500 MG PO TID, #9 TAB 0 Refills Prov: MANDIE GARAY APRN 04/11/19 MANDIE GARAY APRN April 11, 2019 17:09
[2019-04-11] MEDS ORDERED: CEPH500T PO (17:13)
[2019-04-11] MEDS ORDERED: TETANUS,DIPTH,PERTUSS P/F (BOOSTRIX) 0.5 ML VIAL IM ONE (17:15)
[2019-04-11 17:20] VITALS: BP 170/81
== END 2019-04-11 17:20 | disposition home or self-care (01) ==
LOC: ER 16:47 → EDUNIT# 16:47 → ER 17:20
DX: S51.811A Laceration without foreign body of right forearm, initial encounter (principal); J44.9 Chronic obstructive pulmonary disease, unspecified; I25.10 Atherosclerotic heart disease of native coronary artery without angina pectoris; E78.00 Pure hypercholesterolemia, unspecified; I10 Essential (primary) hypertension; Z88.6 Allergy status to analgesic agent; Z88.5 Allergy status to narcotic agent; Z88.1 Allergy status to other antibiotic agents; Z79.82 Long term (current) use of aspirin; Z79.51 Long term (current) use of inhaled steroids; Z87.891 Personal history of nicotine dependence; Z95.5 Presence of coronary angioplasty implant and graft; Z87.19 Personal history of other diseases of the digestive system; Z82.49 Family history of ischemic heart disease and other diseases of the circulatory system; Z23 Encounter for immunization; Z96.653 Presence of artificial knee joint, bilateral; W01.0XXA Fall on same level from slipping, tripping and stumbling without subsequent striking against object, initial encounter; Y92.009 Unspecified place in unspecified non-institutional (private) residence as the place of occurrence of the external cause
CPT/HCPCS: 90715; 99284

== ENCOUNTER 2019-08-19 01:46 | Observation (INO) | payer MEDICARE ==
[~2019-08-19] VITALS: Ht 152.4 cm; Wt 77.7 kg
[2019-08-19] VITALS (8 sets, daily range): BP systolic 126–190; BP diastolic 37–72
[~2019-08-19 01:46] MED LIST changes: +CEPH500T PO
[2019-08-19] MEDS ORDERED: NITROGLYCERIN 0.4 MG SL TABS BTL 25'S SL PRN ×2 (02:00→04:15)
--- NOTE | 2019-08-19 02:04 | ED Chest Pain ---
General Stated Complaint: LEFT SHOULDER PAIN Source: patient, family (daughter and granddaughter) Exam Limitations: no limitations History of Present Illness Date Seen by Provider: Aug 19, 2019 Time Seen by Provider: 01:45 Initial Comments Patient presents to ER by private conveyance with chief complaint of left shoulder pain that is 8 out of 10, sharp and woke her from sleep approximately an hour ago. She took 2x 500 mg aspirins which did not help her pain. She has no history of coronary disease, aneurysms. She has COPD and quit smoking 30 years ago. She does not have a cough or shortness of breath when laying down. She has never had a pain like this before. She does have arthritis in her shoulders however she denies any recent trauma or incident that worsen her shoulder pain. She denies nausea, fever, chills, productive cough. The patient states a year or 2 ago she had some chest pains and they worked her up extensively many tests and told her that she did have cardiac disease but she would do medical management only as none of them to be intervened on. Allergies and Home Medications Allergies Coded Allergies: aspirin (Verified Allergy, Mild, 02/07/10) codeine (Verified Allergy, Mild, 02/07/10) oxycodone (Verified Allergy, Mild, 02/07/10) rofecoxib (Verified Allergy, Mild, 02/07/10) Home Medications Albuterol Sulfate 1 Puff Puff, 2 PUFF IH Q4H PRN for SHORTNESS OF BREATH, ( Reported) 1 PUFF = 90 MCG Alprazolam 0.5 Mg Tablet, 0.5 MG PO TID PRN for ANXIETY, (Reported) Amlodipine Besylate 5 Mg Tablet, 7.5 MG PO DAILY, (Reported) take 1 1/2 of 5mg tab for 7.5mg total Aspirin 81 Mg Tablet.dr, 81 MG PO DAILY, (Reported) Cephalexin 500 Mg Tablet, 500 MG PO TID Prescribed by: MANDIE GARAY on 04/11/19 1713 Cyclobenzaprine HCl 5 Mg Tablet, 5 MG PO TID Prescribed by: KAYCEE WAHL on 08/04/18 1440 Fluticasone/Salmeterol 1 Each Blst.w.dev, 1 EACH IH BID, (Reported) Losartan Potassium 50 Mg Tablet, 50 MG PO DAILY, (Reported) Magnesium Oxide 250 Mg Tablet, 250 MG PO HS, (Reported) Pantoprazole Sodium 40 Mg Tablet.dr, 40 MG PO DAILY, (Reported) Pravastatin Sodium 20 Mg Tablet, 20 MG PO HS, (Reported) Prednisone 10 Mg Tab, 1 TAB PO DAILY Prescribed by: KAYCEE WAHL on 08/04/18 1440 Ranitidine HCl 150 Mg Tablet, 150 MG PO BID, (Reported) Patient Home Medication List Home Medication List Reviewed: Yes Review of Systems Review of Systems Constitutional: No chills, No diaphoresis EENTM: No Blurred Vision, No Double Vision Respiratory: Denies Cough, Denies Shortness of Air Cardiovascular: See HPI; Denies Chest Pain, Denies Edema Gastrointestinal: See HPI; Denies Abdominal Pain, Denies Nausea Genitourinary: Denies Burning, Denies Discharge, Denies Drainage Musculoskeletal: No back pain, No gout, No joint pain Skin: No change in color, No dryness Past Uiwmkqw-Qiaqhi-Tkeull Hx Patient Social History Alcohol Use: Denies Use Recreational Drug Use: No Smoking Status: Former Smoker Type Used: Cigarettes Former Smoker, Quit: Mar 08, 1980 Recent Foreign Travel: No Contact w/Someone Who Travel: No Recent Hopitalizations: No Immunizations Up To Date Tetanus Booster (TDap): Unknown PED Vaccines UTD: No Date of Pneumonia Vaccine: April 20, 2013 Date of Influenza Vaccine: Aug 22, 2017 Seasonal Allergies Seasonal Allergies: No Past Medical History Surgeries: Yes (hernia, BILAT TKR) Coronary Stent, Joint Replacement, Orthopedic Respiratory: Yes (ASTHMA) Asthma, COPD Currently Using CPAP: No Currently Using BIPAP: No Cardiac: Yes (STENT X1) Chronic Edema/Swelling, Coronary Artery Disease, High Cholesterol, Hypertension Neurological: No Reproductive Disorders: No Female Reproductive Disorders: Denies Sexually Transmitted Disease: No HIV/AIDS: No Renal Failure Gastrointestinal: Yes Ulcer Musculoskeletal: Yes (OSTEOARTHRITIS) Arthritis Endocrine: No Cataract Loss of Vision: Denies Hearing Impairment: Hard of Hearing Cancer: No Psychosocial: No Integumentary: Yes Eczema Blood Disorders: No Adverse Reaction/Blood Tranf: No Family Medical History Abdominal aortic aneurysm 19 FATHER Aphasia G8 SISTER Arthritis 19 MOTHER Cardiovascular disease 19 MOTHER G8 BROTHER Completed stroke G8 SISTER Deafness or hearing loss 19 MOTHER Dementia 19 MOTHER Gastroenteritis 19 MOTHER Hypertension 19 MOTHER G8 SISTER Myocardial infarction G8 BROTHER Psychosocial problem G8 SISTER Respiratory disorder 19 MOTHER G8 BROTHER Thyroid disease G8 BROTHER No Family History of: AIDS Emmet's disease Alcoholism Alzheimer's disease Asthma Cancer of mouth Cataracts Colon cancer Congenital disease Congenital heart disease Coronary thrombosis Cystic fibrosis Diabetes mellitus Drug abuse Dysphasia Fibrocystic disease of breast Glaucoma Headache disorder Hypercholesterolemia Infertility Kidney disease Neoplasm Not obtainable due to adoption Osteoporosis Parkinson's disease Prostate cancer Seizure disorder Severe allergy Tuberculosis Visual disorder No Pertinent Family Hx Physical Exam Vital Signs Vital Signs - First Documented 08/19/19 01:47 Temp 37.3 Pulse 75 Resp 18 B/P (MAP) 203/85 (124) Pulse Ox 98 O2 Delivery Room Air Capillary Refill : Height, Weight, BMI Height: 5'0" Weight: 160lbs. 0.0oz. [id number]; 33.4 BMI Method:Stated General Appearance: Anxious, Mild Distress HEENT: PERRL/EOMI, Normal ENT Inspection, Pharynx Normal; No Moist Mucous Membranes Neck: Full Range of Motion, Normal Inspection, Non Tender Respiratory: Chest Non Tender, Lungs Clear, Normal Breath Sounds, No Accessory Muscle Use, No Respiratory Distress Cardiovascular: Regular Rate, Rhythm, No Edema, Normal Peripheral Pulses Gastrointestinal: Normal Bowel Sounds, No Organomegaly, Non Tender, Soft Extremity: Normal Capillary Refill, Normal Inspection, Other (chronic limited range of motion of bilateral shoulders. Msbk-da-vjhmozxx pain full palpation of the glenohumeral joint line. No deformity ecchymoses or abrasion) Neurologic/Psychiatric: Alert, Oriented x3 Skin: Normal Color, Warm/Dry Progress/Results/Core Measures Results/Orders Lab Results Laboratory Tests Test 08/19/19 02:00 Range/Units White Blood Count 9.1 4.3-11.0 10^3/uL Red Blood Count 3.03 L 4.35-5.85 10^6/uL Hemoglobin 9.9 L 11.5-16.0 G/DL Hematocrit 27 L 35-52 % Mean Corpuscular Volume 88 80-99 FL Mean Corpuscular Hemoglobin 33 25-34 PG Mean Corpuscular Hemoglobin Concent 37 H 32-36 G/DL Red Cell Distribution Width 16.5 H 10.0-14.5 % Platelet Count 298 130-400 10^3/uL Mean Platelet Volume 10.0 7.4-10.4 FL Neutrophils (%) (Auto) 59 42-75 % Lymphocytes (%) (Auto) 30 12-44 % Monocytes (%) (Auto) 8 0-12 % Eosinophils (%) (Auto) 2 0-10 % Basophils (%) (Auto) 0 0-10 % Neutrophils # (Auto) 5.4 1.8-7.8 X 10^3 Lymphocytes # (Auto) 2.8 1.0-4.0 X 10^3 Monocytes # (Auto) 0.8 0.0-1.0 X 10^3 Eosinophils # (Auto) 0.2 0.0-0.3 10^3/uL Basophils # (Auto) 0.0 0.0-0.1 10^3/uL Prothrombin Time 13.4 12.2-14.7 SEC INR Comment 1.0 0.8-1.4 Activated Partial Thromboplast Time 28 24-35 SEC D-Dimer 1.04 H 0.00-0.49 UG/ML Sodium Level 139 135-145 MMOL/L Potassium Level 4.9 3.6-5.0 MMOL/L Chloride Level 110 H 98-107 MMOL/L Carbon Dioxide Level 20 L 21-32 MMOL/L Anion Gap 9 5-14 MMOL/L Blood Urea Nitrogen 36 H 7-18 MG/DL Creatinine 1.49 H 0.60-1.30 MG/DL Estimat Glomerular Filtration Rate 33 BUN/Creatinine Ratio 24 Glucose Level 102 70-105 MG/DL Calcium Level 9.0 8.5-10.1 MG/DL Corrected Calcium 8.9 8.5-10.1 MG/DL Magnesium Level 2.5 H 1.6-2.4 MG/DL Total Bilirubin 0.7 0.1-1.0 MG/DL Aspartate Amino Transf (AST/SGOT) 14 5-34 U/L Alanine Aminotransferase (ALT/SGPT) 10 0-55 U/L Alkaline Phosphatase 193 H 40-136 U/L Myoglobin 77.2 10.0-92.0 NG/ML Troponin I < 0.028 <0.028 NG/ML B-Type Natriuretic Peptide 103.5 H <100.0 PG/ML Total Protein 7.3 6.4-8.2 GM/DL Albumin 4.1 3.2-4.5 GM/DL My Orders Orders - LEVY ORTIZ Ekg Tracing (08/19/19 01:48) Continuous Ekg Monitoring (08/19/19 01:48) Cbc With Automated Diff (08/19/19 01:57) Magnesium (08/19/19 01:57) Chest 1 View, Ap/Pa Only (08/19/19 01:57) Cardiac Profile 1 (08/19/19 01:57) Comprehensive Metabolic Panel (08/19/19 01:57) Myoglobin Serum (08/19/19 01:57) Protime With Inr (08/19/19 01:57) Partial Thromboplastin Time (08/19/19 01:57) O2 (08/19/19 01:57) Lipid Panel (08/20/19 06:00) Ed Iv/Invasive Line Start (08/19/19 01:57) BNP (08/19/19 01:57) Fibrin Degradation Products (08/19/19 01:57) Nitroglycerin 0.4 Mg Btl 25's (Nitrostat (08/19/19 02:00) Morphine Injection (Morphine Injection (08/19/19 02:28) Ondansetron Injection (Zofran Injectio (08/19/19 02:30) Medications Given in ED Current Medications Medications Dose Ordered Sig/Jeremiah Route Start Time Stop Time Status Last Admin Dose Admin Nitroglycerin 0.4 mg UD PRN SL 08/19/19 02:00 08/19/19 02:11 0.4 MG Ondansetron HCl 4 mg ONCE ONCE IVP 08/19/19 02:30 08/19/19 02:31 DC 08/19/19 02:40 4 MG Vital Signs/I&O 08/19/19 01:47 Temp 37.3 Pulse 75 Resp 18 B/P (MAP) 203/85 (124) Pulse Ox 98 O2 Delivery Room Air Progress Progress Note : Time: 02:05 Progress Note Could be osteoarthritis of the shoulder or could be a referred pain from cardiac, thoracic aneurysm dissection etc. She does not have a gallbladder or appendix. Echocardiogram April [address] Moody demonstrating EF of 55-65% with grade 1 diastolic dysfunction. Stress test 2017 demonstrating a mid to apical anterior wall and septum mild ischemia. Cardiac catheterization [address] Moody: Patent LAD stent with mild in-stent restenosis. Proximal to the stent is 40-50% stenosis. Otherwise mild to moderate disease in the mid LAD and the mid circumflex system. Heart score 6 points with a normal troponin. Initial ECG Impression Date: Aug 19, 2019 Initial ECG Impression Time: 01:56 Initial ECG Rate: 67 Initial ECG Rhythm: Normal Sinus Initial ECG Intervals: AK (260) Initial ECG Impression: 1st Degree AV Block Initial ECG Comparisson: Changed Comment First-degree AV block, sinus rhythm with no clinically relevant ST elevation or depression. Diagnostic Imaging Diagonstic Imaging: Xray Plain Films/CT/US/NM/MRI: chest (1v) Comments Osteoarthritis seen 1 view chest of the shoulders. No fracture or dislocation seen. No acute cardiopulmonary process noted. Reviewed: Reviewed by Me Departure Communication (Admissions) Time/Spoke to Admitting Phy: 03:00 Discussed the case with Dr. Romeo , medicine and she agrees to have the patient for serial troponins and management of left shoulder pain versus atypical angina. Time/Spoke to Consulting Phy: 03:00 Discussed the case with Dr. Stark, cardiology and he agrees to consult on the case. Impression Primary Impression: Acute pain of left shoulder Additional Impressions: Atypical angina ACS (acute coronary syndrome) Disposition: 09 ADMITTED INPATIENT Condition: Stable Admissions Decision to Admit Reason: Admit from ER (General) Decision to Admit/Date: Aug 19, 2019 Time/Decision to Admit Time: 02:45 Departure-Patient Inst. Referrals: TAHIR MARTINEZ DO (PCP/Family) Primary Care Physician LEVY ORTIZ Aug 19, 2019 02:04
[2019-08-19 02:12] LABS: BASOPHILS % (AUTO) 0 % (0-10); EOSINOPHILS # (AUTO) 0.2 10^3/uL (0.0-0.3); EOSINOPHILS % (AUTO) 2 % (0-10); HEMATOCRIT 27 % (35-52); HEMOGLOBIN 9.9 G/DL (11.5-16.0); LYMPHOCYTES # (AUTO) 2.8 X 10^3 (1.0-4.0); LYMPHOCYTES % (AUTO) 30 % (12-44); MEAN CORPUSCULAR HEMOGLOBIN 33 PG (25-34); MEAN CORPUSCULAR HGB CONC 37 G/DL (32-36); MEAN CORPUSCULAR VOLUME 88 FL (80-99); MONOCYTES # (AUTO) 0.8 X 10^3 (0.0-1.0); MONOCYTES % (AUTO) 8 % (0-12); NEUTROPHILS # (AUTO) 5.4 X 10^3 (1.8-7.8); NEUTROPHILS % (AUTO) 59 % (42-75); PLATELET COUNT 298 10^3/uL (130-400); RED CELL DISTRIBUTION WIDTH 16.5 % (10.0-14.5); WHITE BLOOD COUNT 9.1 10^3/uL (4.3-11.0)
[2019-08-19] MEDS ORDERED: morphine INJ 10 MG/ML 1ML (SYR OR VIAL) IVP STA (02:28)
[2019-08-19 02:29] LABS: ALANINE AMINOTRANSFERASE 10 U/L (0-55); ALBUMIN 4.1 GM/DL (3.2-4.5); ALKALINE PHOSPHATASE 193 U/L (40-136); BILIRUBIN,TOTAL 0.7 MG/DL (0.1-1.0); BUN/CREATININE RATIO 24; CARBON DIOXIDE 20 MMOL/L (21-32); CHLORIDE 110 MMOL/L (98-107); CREATININE SERUM 1.49 MG/DL (0.60-1.30); GFR ESTIMATED 33; GLUCOSE 102 MG/DL (70-105); MAGNESIUM 2.5 MG/DL (1.6-2.4); POTASSIUM 4.9 MMOL/L (3.6-5.0); PROTHROMBIN TIME PATIENT 13.4 SEC (12.2-14.7); SODIUM 139 MMOL/L (135-145); TOTAL PROTEIN 7.3 GM/DL (6.4-8.2)
[2019-08-19] MEDS ORDERED: ONDANSETRON 4 MG/2 ML (SDV) Z0FRAN IVP ONE ×2 (02:30→03:45)
--- NOTE | 2019-08-19 04:00 | NUR ---
MINDY FISHER admitted to room 418-1, with an admitting diagnosis of shoulder pain, possible atypical angina, possible radiculopathy, on 08/19/19 from ed via cart, accompanied by family & staff.MINDY FISHER introduced to surroundings, call light, bed controls, phone, TV, temperature control, lights, meal times, smoking policy, visitor policy, side rail policy, bathrooms and showers. Patient Rights given to patient in the handbook. MINDY FISHER verbalizes understanding that [facility] is not responsible for the loss or damage to any personal effects or valuables that are kept in the patients possession during their hospitalization. Patient was informed about her plan of care, she agrees to it, denies any questions or concerns. MINDY FISHER verbalizes understanding of Interdisciplinary Patient Education. Patient and/or family were informed about the Rapid Response Team and its purpose.
[2019-08-19] MEDS ORDERED: NS IV 1000 ML 1,000 ML ONE (04:12)
[2019-08-19] MEDS ORDERED: ONDANSETRON 4 MG/2 ML (SDV) Z0FRAN IV PRN (04:15)
[2019-08-19] MEDS: NS IV 1000 ML 1,000 ML IV SCH ×2 (04:19→14:50)
[2019-08-19] MEDS: CALCIUM CARBONATE 500 MG (TUMS) TAB.CHEW PO PRN ×2 (04:34→22:02)
--- NOTE | 2019-08-19 05:35 | NUR ---
pt states her pain varies from 0-10 off & on currently at 7 of 10 on numeric scale this rn offered pt pain medications-pt refused
--- NOTE | 2019-08-19 06:07 | NUR ---
0430-pt belching & spitting up saliva-pt requesting something to help with the gas-this rn called dr. ortiz new order received 0515-pt requesting DNR status-this rn contacted dr. ortiz DNR order received
--- NOTE | 2019-08-19 06:58 | Diagnostic Imaging Report ---
Clinical indication: Patient with left shoulder pain. Exam: Portable chest x-ray upright view. Comparisons: Chest x-ray dated 08/19/2015. Findings: Lungs/pleura: Lungs are clear. There is no pneumothorax. There is no pleural effusion. Mediastinum: Unremarkable. Pulmonary vasculature: Unremarkable. Heart: Unremarkable. Bones/extrathoracic soft tissue: Unremarkable. Impression: There is no radiographic evidence of acute cardiopulmonary process. Dictated by: Dictated on workstation # [id number]
[2019-08-19 09:53] LABS: CHOLESTEROL 193 MG/DL (< 200); HDL CHOLESTEROL 52 MG/DL (40-60); TRIGLYCERIDES 123 MG/DL (<150); VLDL CHOLESTEROL 25 MG/DL (5-40)
[2019-08-19] MEDS ORDERED: MONT10TA21 PO (11:43)
[2019-08-19] MEDS ORDERED: FEXO-46 PO (12:34)
--- NOTE | 2019-08-19 13:10 | History & Physical-Hospitalist ---
History of Present Illness HPI/Chief Complaint Chief complaint: Atypical chest pain with left arm pain History of present illness: This is an 88-year-old white female clinic patient of [facility] for the past 15.5 years with a past medical history of hypertension, COPD, CAD managed by Dr. Moody and severe GERD status post Robert fundoplication years ago who presented to the ER in the middle of the night with left arm pain and numbness. She became increasingly concerned she presented to the ER found to have a negative troponin and workup but admitted for observation and risk stratification. Her daughter Lizzette is a nurse reported a lot of belching when she arrived at her house and thinks that this is an esophageal spasm issue so I will contact Dr. Espinoza who is on-call for Dr. Taylor who had performed an EGD in the last 2 years. She also had a stress test in the last year and a half. Source: patient Exam Limitations: no limitations Date Seen 08/19/19 Time Seen by a Provider: 12:00 Attending Physician Opal Romeo MD PCP Halle Martinez DO Referring Physician Date of Admission Aug 19, 2019 at 02:55 Home Medications & Allergies Home Medications Reviewed patient Home Medication Reconciliation performed by pharmacy medication reconciliations wireless cellular technician and/or nursing. Patients Allergies have been reviewed. Allergies Allergies Coded Allergies aspirin (Verified Allergy, Mild, 02/07/10) codeine (Verified Allergy, Mild, 02/07/10) oxycodone (Verified Allergy, Mild, 02/07/10) rofecoxib (Verified Allergy, Mild, 02/07/10) Past Prmpnju-Kllgje-Apnvck Hx Past Med/Social Hx: Reviewed Nursing Past Med/Soc Hx, Reviewed and Corrections made Patient Social History Marrital Status: Employed/Student: retired Alcohol Use: Denies Use Recreational Drug Use: No Smoking Status: Former Smoker Former Smoker, Quit: Mar 08, 1980 Type Used: Cigarettes Recent Foreign Travel: No Contact w/other who traveled: Yes ([facility], [facility] [place] Granddaughter lives c[place] Recent Hopitalizations: No Recent Infectious Disease Expo: No Immunizations Up To Date Tetanus Booster (TDap): Unknown Pediatric: No Date of Pneumonia Vaccine: Dec 21, 2017 Date of Influenza Vaccine: Aug 22, 2017 Seasonal Allergies Seasonal Allergies: No Past Medical History Surgeries: Coronary Stent, Joint Replacement, Orthopedic Respiratory: Asthma, COPD, Pneumonia Currently Using CPAP: No Currently Using BIPAP: No Cardiac: Chronic Edema/Swelling, Coronary Artery Disease, High Cholesterol, Hypertension : No Reproductive: No Sexually Transmitted Disease: No HIV/AIDS: No Female Reproductive Disorders: Denies Genitourinary: Renal Failure Gastrointestinal: Ulcer Musculoskeletal: Arthritis HEENT: Cataract Loss of Vision: Denies Hearing Impairment: Hard of Hearing Skin/Integumentary: Eczema History of Blood Disorders: No Adverse Reaction to Blood Christensen: No Family History Abdominal aortic aneurysm 19 FATHER Aphasia G8 SISTER Arthritis 19 MOTHER Cardiovascular disease 19 MOTHER G8 BROTHER Completed stroke G8 SISTER Deafness or hearing loss 19 MOTHER Dementia 19 MOTHER Gastroenteritis 19 MOTHER Hypertension 19 MOTHER G8 SISTER Myocardial infarction G8 BROTHER Psychosocial problem G8 SISTER Respiratory disorder 19 MOTHER G8 BROTHER Thyroid disease G8 BROTHER No Family History of: AIDS Mccone's disease Alcoholism Alzheimer's disease Asthma Cancer of mouth Cataracts Colon cancer Congenital disease Congenital heart disease Coronary thrombosis Cystic fibrosis Diabetes mellitus Drug abuse Dysphasia Fibrocystic disease of breast Glaucoma Headache disorder Hypercholesterolemia Infertility Kidney disease Neoplasm Not obtainable due to adoption Osteoporosis Parkinson's disease Prostate cancer Seizure disorder Severe allergy Tuberculosis Visual disorder No Pertinent Family Hx Review of Systems Constitutional: see HPI EENTM: no symptoms reported Respiratory: no symptoms reported Cardiovascular: chest pain Gastrointestinal: no symptoms reported Genitourinary: no symptoms reported Musculoskeletal: no symptoms reported Skin: no symptoms reported Psychiatric/Neurological: No Symptoms Reported All Other Systems Reviewed Negative Unless Noted: Yes Physical Exam Physical Exam Vital Signs Vital Signs - First Documented 08/19/19 01:47 Temp 37.3 Pulse 75 Resp 18 B/P (MAP) 203/85 (124) Pulse Ox 98 O2 Delivery Room Air Capillary Refill : Less Than 3 Seconds Height, Weight, BMI Height: 5'0" Weight: 160lbs. 0.0oz. 72.436643se; 33.45 BMI Method:Stated General Appearance: No Apparent Distress, WD/WN, Chronically ill Eyes: Right Eye Normal Inspection, Right Eye PERRL HEENT: PERRL/EOMI, Normal ENT Inspection, Pharynx Normal, Moist Mucous Membranes Neck: Full Range of Motion, Normal Inspection, Non Tender Respiratory: Chest Non Tender, Lungs Clear, Normal Breath Sounds, No Accessory Muscle Use, No Respiratory Distress Cardiovascular: Regular Rate, Rhythm, No Edema, No Gallop, No JVD, No Murmur, Normal Peripheral Pulses Gastrointestinal: Normal Bowel Sounds, No Organomegaly, No Pulsatile Mass, Non Tender, Soft Back: Normal Inspection, No CVA Tenderness, No Vertebral Tenderness Extremity: Normal Capillary Refill, Normal Inspection, Normal Range of Motion, Non Tender, No Calf Tenderness, No Pedal Edema Neurologic/Psychiatric: Alert, Oriented x3, No Motor/Sensory Deficits, Normal Mood/Affect Skin: Normal Color, Warm/Dry Lymphatic: No Adenopathy Results Results/Procedures Labs Laboratory Tests 08/19/19 02:00 Patient resulted labs reviewed. Assessment/Plan Admission Diagnosis Assessment: Atypical chest pain with history of stent COPD History of esophageal spasms and history of Robert fundoplication Hypertension Gout Chronic renal insufficiency Anemia Plan: Consult cardiology Consult Gen. surgery Home meds Monitor closely Admission Status: Observation Diagnosis/Problems Diagnosis/Problems (1) Chest pain Status: Acute Qualifiers: Chest pain type: unspecified Qualified Codes: R07.9 - Chest pain, unspecified (2) CAD (coronary artery disease) Qualifiers: Coronary Disease-Associated Artery/Lesion type: [place] artery [place] vs. transplanted heart: [place] heart Associated angina: without angina Qualified Codes: I25.10 - Atherosclerotic heart disease of [place] coronary artery without angina pectoris (3) History of coronary artery stent placement Status: Chronic (4) COPD (chronic obstructive pulmonary disease) Status: Chronic Qualifiers: COPD type: unspecified COPD Qualified Codes: J44.9 - Chronic obstructive pulmonary disease, unspecified (5) Chronic renal insufficiency Status: Chronic Qualifiers: Chronic kidney disease stage: stage 3 (moderate) Qualified Codes: N18.3 - Chronic kidney disease, stage 3 (moderate) (6) Gout Status: Chronic Qualifiers: Gout site: unspecified site Gout etiology: unspecified cause Chronicity: unspecified Qualified Codes: M10.9 - Gout, unspecified (7) Hyperlipidemia Status: Chronic Qualifiers: Hyperlipidemia type: mixed hyperlipidemia Qualified Codes: E78.2 - Mixed hyperlipidemia (8) Chronic anemia Status: Chronic (9) Acute pain of left shoulder Status: Acute Clinical Quality Measures DVT/VTE Risk/Contraindication: Risk Factor Score Per Nursin RFS Level Per Nursing on Admit: 4+=Very High HALLE MARTINEZ DO Aug 19, 2019 13:10
[2019-08-19] MEDS ORDERED: ALPRAZolam 0.5 MG (XANAX) TAB PO PRN (13:15)
[2019-08-19] MEDS ORDERED: RT-ALBUTEROL SULF 2.5 MG/3 ML PRE-MIX VIAL IH PRN ×2 (13:15→14:00)
--- NOTE | 2019-08-19 13:38 | Consultation-Cardiology ---
HPI-Cardiology Cardiology Consultation: Date of Consultation 08/19/19 Date of Admission Attending Physician Opal Romeo MD Admitting Physician Halle Martinez DO Consulting Physician Teresa STARK MD HPI: Time Seen by a Provider: 11:00 Chief Complaint: Chest discomfort This is a 88-year-old lady with history of hypertension, hyperlipidemia who presents to the ER with complains of upper chest and left shoulder pain. Moderate to severe intensity. 8/10. Sharp. She took aspirin with no relief. She has history of COPD but denies any other cardiac symptoms. No associated cardiac symptoms. No radiation. No exacerbating or relieving factors. He follows with Dr. Moody with a previous coronary angiography in 2013 which showed [id number] disease. Echocardiogram showed normal LV function. Review of Systems-Cardiology Review of Systems Constitutional: As described under HPI; No As described under HPI, No no sy mptoms reported, No chills, No fever, No lightheadedness Eyes: No As described under HPI, No no symptoms reported, No blindness, No blurred vision, No contact lenses, No drainage, No decreased acuity, No foreign body sensation, No pain, No vision change Ears/Nose/Throat: No As described under HPI, No no symptoms reported, No chronic hearing loss, No ear discharge, No ear pain, No nasal drainage, No ulcerations Respiratory: No no symptoms reported; As described under HPI; No As described under HPI, No cough, No orthopnea, No shortness of breath, No SOB with excertion Cardiovascular: No no symptoms reported; As described under HPI; No As described under HPI; chest pain; No edema, No irregular heart rate, No lightheadedness, No palpitations Gastrointestinal: No no symptoms reported, No As described under HPI, No abdomen distended, No abdominal pain, No blood streaked bowels, No constipation, No diarrhea, No nausea, No vomiting, No stool coloration changes Genitourinary: No As described under HPI, No burning, No dysuria, No discharge, No frequency, No flank pain, No hematuria, No urgency : Yes : No Musculoskeletal: joint pain Skin: No rash, No skin related problems, No ulcerations Psychiatric/Neurological: No anxiety, No depression, No seizure, No focal weakness, No syncope Hematologic: No bleeding abnormalities [id number]-Kwbhlf Hx Patient Social History Alcohol Use: Denies Use Recreational Drug Use: No Smoking Status: Former Smoker Type Used: Cigarettes Recent Foreign Travel: No Recent Infectious Disease Expo: No Hospitalization with Isolation: Denies Immunizations Up To Date Tetanus Booster (TDap): Unknown Date of Pneumonia Vaccine: Dec 21, 2017 Date of Influenza Vaccine: Aug 22, 2017 Past Medical History PMH As described under Assessment. Family Medical History Family History: Abdominal aortic aneurysm 19 FATHER Aphasia G8 SISTER Arthritis 19 MOTHER Cardiovascular disease 19 MOTHER G8 BROTHER Completed stroke G8 SISTER Deafness or hearing loss 19 MOTHER Dementia 19 MOTHER Gastroenteritis 19 MOTHER Hypertension 19 MOTHER G8 SISTER Myocardial infarction G8 BROTHER Psychosocial problem G8 SISTER Respiratory disorder 19 MOTHER G8 BROTHER Thyroid disease G8 BROTHER No Family History of: AIDS [place]'s disease Alcoholism Alzheimer's disease Asthma Cancer of mouth Cataracts Colon cancer Congenital disease Congenital heart disease Coronary thrombosis Cystic fibrosis Diabetes mellitus Drug abuse Dysphasia Fibrocystic disease of breast Glaucoma Headache disorder Hypercholesterolemia Infertility Kidney disease Neoplasm Not obtainable due to adoption Osteoporosis Parkinson's disease Prostate cancer Seizure disorder Severe allergy Tuberculosis Visual disorder Allergies and Home Medications Allergies Coded Allergies: aspirin (Verified Allergy, Mild, 02/07/10) codeine (Verified Allergy, Mild, 02/07/10) oxycodone (Verified Allergy, Mild, 02/07/10) rofecoxib (Verified Allergy, Mild, 02/07/10) Home Medications Albuterol Sulfate 1 Puff Puff, 2 PUFF IH Q4H PRN for SHORTNESS OF BREATH, (Reported) 1 PUFF = 90 MCG Alprazolam 0.5 Mg Tablet, 0.5 MG PO TID PRN for ANXIETY, (Reported) Amlodipine Besylate 5 Mg Tablet, 7.5 MG PO DAILY, (Reported) take 1 1/2 of 5mg tab for 7.5mg total Aspirin 81 Mg Tablet.dr, 81 MG PO DAILY, (Reported) Fexofenadine HCl 180 Mg Tablet, 180 MG PO DAILY, (Reported) Gabapentin 100 Mg Capsule, 100 MG PO TID PRN for PAIN-MILD Prescribed by: HALLE MARTINEZ on 08/20/19 1407 Losartan Potassium 50 Mg Tablet, 50 MG PO DAILY, (Reported) Montelukast Sodium 10 Mg Tablet, 10 MG PO DAILY, (Reported) Pantoprazole Sodium 40 Mg Tablet.dr, 40 MG PO DAILY Prescribed by: HALLE MARTINEZ on 08/20/191406 Pravastatin Sodium 20 Mg Tablet, 20 MG PO HS, (Reported) Ranitidine HCl 150 Mg Tablet, 150 MG PO BID, (Reported) Sucralfate 1 Gm Tablet, 1 GM PO ACHS Prescribed by: HALLE MARTINEZ on 08/20/191406 Patient Home Medication List Home Medication List Reviewed: Yes Physical Exam-Cardiology Physical Exam Vital Signs/I&O 08/20/19 08/20/19 08/20/19 08/20/19 03:53 07:00 08:00 08:05 Temp 37.8 Pulse 68 68 Resp 20 B/P (MAP) 130/62 (84) Pulse Ox 94 97 O2 Delivery NIV CPAP Room Air Room Air 08/20/19 08/20/19 08/20/19 08/20/19 08:10 10:45 10:50 10:55 Temp 36.7 Pulse 74 69 68 71 Resp 20 16 16 16 B/P (MAP) 149/72 (97) Pulse Ox 96 99 99 99 O2 Delivery Room Air OxyMask Room Air Room Air O2 Flow Rate 10 08/20/19 08/20/19 11:15 13:00 Temp 37.5 Pulse 81 75 Resp 24 B/P (MAP) 161/77 (105) Pulse Ox 96 O2 Delivery Room Air 08/20/19 00:00 Intake Total 340 ml Balance 340 ml Capillary Refill : Less Than 3 Seconds Constitutional: appears stated age, AAO x 3; No apparent distress; well-developed, well-nourished HEENT: PERRL; No discharge; hearing is well preserved, oral hygience is good; No ulceration, No xanthelasmas are seen Neck: No carotid bruit; carotid pulses are 2 + bilaterally Respiratory: chest is bilaterally symmetric, lungs clear to auscultation Cardiovascular: regular rate-rhythm, S1 and S2 Gastrointestinal: soft, round, audible bowel sounds; No spleenomegaly Rectal: deferred Extremities: normal range of motion, non-tender, normal inspection; No clubbing, No cyanosis; no lower extremity edema bilateral; No significant edema Neurologic/Psychiatric: no motor/sensory deficits, alert, normal mood/affect, oriented x 3, power is 5/5 both on sides Skin: normal color, warm/dry; No rash, No ulcerations Data Review Labs Laboratory Tests 08/20/19 05:10: White Blood Count 8.4, Red Blood Count 3.22L, Hemoglobin 8.9L, Hematocrit 28L, Mean Corpuscular Volume 88, Mean Corpuscular Hemoglobin 28, Mean Corpuscular Hemoglobin Concent 32, Red Cell Distribution Width 15.4H, Platelet Count 265, Mean Platelet Volume 10.3, Neutrophils (%) (Auto) 59, Lymphocytes (%) (Auto) 29, Monocytes (%) (Auto) 10, Eosinophils (%) (Auto) 2, Basophils (%) (Auto) 0, Neutrophils # (Auto) 4.9, Lymphocytes # (Auto) 2.4, Monocytes # (Auto) 0.8, Eosinophils # (Auto) 0.2, Basophils # (Auto) 0.0, Sodium Level 139, Potassium Level 5.5H, Chloride Level 112H, Carbon Dioxide Level 20L, Anion Gap 7, Blood Urea Nitrogen 30H, Creatinine 1.50H, Estimat Glomerular Filtration Rate 33, BUN/Creatinine Ratio 20, Glucose Level 107H, Calcium Level 8.6, Corrected Calcium 8.9, Total Bilirubin 1.2H, Aspartate Amino Transf (AST/SGOT) 14, Alanine Aminotransferase (ALT/SGPT) 12, Alkaline Phosphatase 179H, Total Protein 6.5, Albumin 3.6 A/P-Cardiology Assessment/Admission Diagnosis Shoulder pain/chest pain, Mild to moderate CAD, Hypertension, Hyperlipidemia, COPD Plan Shoulder pain/chest pain, rule out ACS with serial negative troponin. Echocardiogram. Mild to moderate CAD, rule out ACS. Hypertension, continue outpatient medical therapy. Hyperlipidemia, continue pravastatin. COPD, no acute medical issues. Thank you for your consultation. Please call me if you have any questions. Keira Stark MD, FACP, FACC, FSCAI, FHRS, CCDS Interventional Cardiology Cardiac Electrophysiology Vascular Medicine and Endovascular Interventions Clinical Quality Measures DVT/VTE Risk/Contraindication: Risk Factor Score Per Nursin RFS Level Per Nursing on Admit: 4+=Very High Teresa STARK MD Aug 19, 2019 13:38
--- NOTE | 2019-08-19 14:58 | Consultation - Surgery ---
History of Present Illness History of Present Illness Patient Consulted On(yeni/time) 08/19/19 14:51 Date Seen by Provider: Aug 19, 2019 Time Seen by Provider: 14:35 History of Present Illness Surgery consulted regarding epigastric abdominal pain. HPI per ED: " Patient presents to ER by private conveyance with chief complaint of left shoulder pain that is 8 out of 10, sharp and woke her from sleep a pproximately an hour ago. She took 2x 500 mg aspirins which did not help her pain. She has no history of coronary disease, aneurysms. She has COPD and quit smoking 30 years ago. She does not have a cough or shortness of breath when laying down. She has never had a pain like this before. She does have arthritis in her shoulders however she denies any recent trauma or incident that worsen her shoulder pain. She denies nausea, fever, chills, productive cough. The patient states a year or 2 ago she had some chest pains and they worked her up extensively many tests and told her that she did have cardiac disease but she would do medical management only as none of them to be intervened on." Pt complains of colicky epigastric abdominal pain that is sharp in nature and radiates through to her back. She has had this pain for approximately 3 years and says it has been stable, not increasing in frequency or intensity. Pain is not associated with meals but she notes she has some regurgitation of food/water after large meals along with belching. She has followed up this pain with an EGD twice with Dr. Taylor in the past two years, but declined further studies at the time. She wishes now to work up this pain while she is hospitalized. Allergies and Home Medications Allergies Coded Allergies: aspirin (Verified Allergy, Mild, 02/07/10) codeine (Verified Allergy, Mild, 02/07/10) oxycodone (Verified Allergy, Mild, 02/07/10) rofecoxib (Verified Allergy, Mild, 02/07/10) Home Medications Albuterol Sulfate 1 Puff Puff, 2 PUFF IH Q4H PRN for SHORTNESS OF BREATH, (Reported) 1 PUFF = 90 MCG Alprazolam 0.5 Mg Tablet, 0.5 MG PO TID PRN for ANXIETY, (Reported) Amlodipine Besylate 5 Mg Tablet, 7.5 MG PO DAILY, (Reported) take 1 1/2 of 5mg tab for 7.5mg total Aspirin 81 Mg Tablet.dr, 81 MG PO DAILY, (Reported) Cyclobenzaprine HCl 5 Mg Tablet, 5 MG PO TID Prescribed by: KAYCEE WAHL on 08/04/18 1440 Fexofenadine HCl 180 Mg Tablet, 180 MG PO DAILY, (Reported) Losartan Potassium 50 Mg Tablet, 50 MG PO DAILY, (Reported) Montelukast Sodium 10 Mg Tablet, 10 MG PO DAILY, (Reported) Pravastatin Sodium 20 Mg Tablet, 20 MG PO HS, (Reported) Ranitidine HCl 150 Mg Tablet, 150 MG PO BID, (Reported) Patient Home Medication List Home Medication List Reviewed: Yes Past Fovnlnl-Vxdfmk-Ljbmdo Hx Patient Social History Alcohol Use: Denies Use Recreational Drug Use: No Smoking Status: Former Smoker Former Smoker, Quit: Mar 08, 1980 Type Used: Cigarettes Recent Foreign Travel: No Contact w/Someone Who Travel: Yes ([facility] [place], [place]. Granddaughter lives [place].) Recent Infectious Disease Expo: No Recent Hopitalizations: No Immunizations Up To Date Tetanus Booster (TDap): Unknown PED Vaccines UTD: No Date of Pneumonia Vaccine: Dec 21, 2017 Date of Influenza Vaccine: Aug 22, 2017 Seasonal Allergies Seasonal Allergies: No Surgeries History of Surgeries: Yes (hernia, BILAT TKR) Surgeries: Bowel Surgery (maicol fundoplication ), Coronary Stent, Gallbladder, Joint Replacement, Orthopedic Respiratory History of Respiratory Disorde: Yes (ASTHMA) Respiratory Disorders: Asthma, COPD Cardiovascular History of Cardiac Disorders: Yes (STENT X1) Cardiac Disorders: Chronic Edema/Swelling, Coronary Artery Disease, High Cholesterol, Hypertension Neurological History of Neurological Disord: No Reproductive System : No Hx Reproductive Disorders: No Sexually Transmitted Disease: No HIV/AIDS: No Female Reproductive Disorders: Denies Genitourinary History of Genitourinary Disor: Yes Genitourinary Disorders: Renal Failure Gastrointestinal History of Gastrointestinal Di: Yes Gastrointestinal Disorders: Ulcer Musculoskeletal History of Musculoskeletal Dis: Yes (OSTEOARTHRITIS) Musculoskeletal Disorders: Arthritis Endocrine History of Endocrine Disorders: No HEENT HEENT Disorders: Cataract Loss of Vision: Denies Hearing Impairment: Hard of Hearing Cancer History of Cancer: No Psychosocial History of Psychiatric Problem: No Integumentary History of Skin or Integumenta: Yes Skin/Integumentary Disorders: Eczema Blood Transfusions History of Blood Disorders: No Adverse Reaction to a Blood Tr: No Family Medical History Significant Family History: AAA (father), Heart Disease (brother), Cancer (mother of gallbladder cancer), CAD Over 55 Years Old (mother, brother), Psychiatric Problems (sister), Stroke (sister) Family Medial History: Abdominal aortic aneurysm 19 FATHER Aphasia G8 SISTER Arthritis 19 MOTHER Cardiovascular disease 19 MOTHER G8 BROTHER Completed stroke G8 SISTER Deafness or hearing loss 19 MOTHER Dementia 19 MOTHER Gastroenteritis 19 MOTHER Hypertension 19 MOTHER G8 SISTER Myocardial infarction G8 BROTHER Psychosocial problem G8 SISTER Respiratory disorder 19 MOTHER G8 BROTHER Thyroid disease G8 BROTHER No Family History of: AIDS Ed's disease Alcoholism Alzheimer's disease Asthma Cancer of mouth Cataracts Colon cancer Congenital disease Congenital heart disease Coronary thrombosis Cystic fibrosis Diabetes mellitus Drug abuse Dysphasia Fibrocystic disease of breast Glaucoma Headache disorder Hypercholesterolemia Infertility Kidney disease Neoplasm Not obtainable due to adoption Osteoporosis Parkinson's disease Prostate cancer Seizure disorder Severe allergy Tuberculosis Visual disorder Review of Systems-General Constitutional: No chills, No fever EENTM: No hearing loss, No ear pain, No eye pain, No vision loss Respiratory: cough, phlegm; No short of breath Cardiovascular: No chest pain; edema, Hx of Intervention (stent) Gastrointestinal: see HPI, abdominal pain (epigastric); No constipation, No diarrhea; dysphagia (solids/liquids after large meal ); No hematemesis, No jaundice, No loss of appetite, No melena; nausea; No vomiting Genitourinary: No frequency, No incontinence Musculoskeletal: back pain, joint pain Skin: No lesions, No lumps, No rash Psychiatric/Neurological: Denies Anxiety, Denies Depressed; Headache Other denies history of abnormal bleeding disorder denies heat/cold intolerance Physical Exam-General Problems Physical Exam Vital Signs Vital Signs - First Documented 08/19/19 01:47 Temp 37.3 Pulse 75 Resp 18 B/P (MAP) 203/85 (124) Pulse Ox 98 O2 Delivery Room Air Capillary Refill : Less Than 3 Seconds General Appearance: WD/WN, no apparent distress HEENT: PERRL/EOMI; No scleral icterus (R), No scleral icterus (L), No pale conjunctivae (R), No pale conjunctivae (L) Neck: non-tender, supple; No thyromegaly Respiratory: chest non-tender, lungs clear, normal breath sounds Cardiovascular: normal peripheral pulses, regular rate, rhythm Peripheral Pulses: 2+ Dorsalis Pedis (R), 2+ Left Dors-Pedis (L), 2+ Radial Pulses (R), 2+ Radial Pulses (L) Gastrointestinal: soft; No distended, No guarding, No rebound; tenderness (epigastric) Rectal: deferred Extremities: no calf tenderness, normal capillary refill, pedal edema Neurologic/Psychiatric: alert, oriented x 3 Skin: normal color, warm/dry Lymphatic: no adenopathy (supra/infraclavicular, cervical ) Data Review Labs Laboratory Tests 08/19/19 02:00: White Blood Count 9.1, Red Blood Count 3.03L, Hemoglobin 9.9L, Hematocrit 27L, Mean Corpuscular Volume 88, Mean Corpuscular Hemoglobin 33, Mean Corpuscular Hemoglobin Concent 37H, Red Cell Distribution Width 16.5H, Platelet Count 298, Mean Platelet Volume 10.0, Neutrophils (%) (Auto) 59, Lymphocytes (%) (Auto) 30, Monocytes (%) (Auto) 8, Eosinophils (%) (Auto) 2, Basophils (%) (Auto) 0, Neutrophils # (Auto) 5.4, Lymphocytes # (Auto) 2.8, Monocytes # (Auto) 0.8, Eosinophils # (Auto) 0.2, Basophils # (Auto) 0.0, Prothrombin Time 13.4, INR Comment 1.0, Activated Partial Thromboplast Time 28, D-Dimer 1.04H, Sodium Level 139, Potassium Level 4.9, Chloride Level 110H, Carbon Dioxide Level 20L, Anion Gap 9, Blood Urea Nitrogen 36H, Creatinine 1.49H, Estimat Glomerular Filtration Rate 33, BUN/Creatinine Ratio 24, Glucose Level 102, Calcium Level 9.0, Corrected Calcium 8.9, Magnesium Level 2.5H, Total Bilirubin 0.7, Aspartate Amino Transf (AST/SGOT) 14, Alanine Aminotransferase (ALT/SGPT) 10, Alkaline Phosphatase 193H, Myoglobin 77.2, Troponin I < 0.028, B-Type Natriuretic Peptide 103.5H, Total Protein 7.3, Albumin 4.1 08/19/19 08:46: Troponin I < 0.028, Triglycerides Level 123, Cholesterol Level 193, LDL Cholesterol Direct 113, VLDL Cholesterol 25, HDL Cholesterol 52 08/19/19 14:11: Troponin I < 0.028 Assessment/Plan Assessment/Plan Assessment/Plan Dysphagia epigastric abdominal pain history of esophagitis chronic gastritis Discussed working up epigastric abdominal pain and dysphagia with barium swallow or EGD with patient. She agreed and would like testing while she is in the hospital. Will make pt NPO after midnight and plan for EGD at 9am tomorrow. Clinical Quality Measures DVT/VTE Risk/Contraindication: Risk Factor Score Per Nursin RFS Level Per Nursing on Admit: 4+=Very High SHEREEN PAK DO Aug 19, 2019 14:58
[2019-08-19] MEDS ORDERED: SIMvastatin 10 MG (ZOCOR) TAB PO SCH (21:00)
[2019-08-19] MEDS: morphine INJ 4 MG/ML 1 ML (VIAL/SYRINGE) IV PRN (22:41)
[2019-08-20] VITALS (7 sets, daily range): BP systolic 130–168; BP diastolic 60–77
[2019-08-20] MEDS: NS IV 1000 ML 1,000 ML IV SCH ×2 (00:36→12:04)
--- NOTE | 2019-08-20 02:43 | NUR ---
2199-pt requesting xanax & tums-pt reports feeling uneasy & is having a belching episode-prn xanax & tums given 2240-pt reports the belching episode has brought on epigastric pain, nausea, accompanied with leg, bilateral arm, left shoulder, & back pain this rn gave prn zofran & morphine. 5-pt is resting in bed with eyes closed. no distress noted. pt daughter at bedside
[2019-08-20 05:31] LABS: BASOPHILS % (AUTO) 0 % (0-10); EOSINOPHILS # (AUTO) 0.2 10^3/uL (0.0-0.3); EOSINOPHILS % (AUTO) 2 % (0-10); HEMATOCRIT 28 % (35-52); HEMOGLOBIN 8.9 G/DL (11.5-16.0); LYMPHOCYTES # (AUTO) 2.4 X 10^3 (1.0-4.0); LYMPHOCYTES % (AUTO) 29 % (12-44); MEAN CORPUSCULAR HEMOGLOBIN 28 PG (25-34); MEAN CORPUSCULAR HGB CONC 32 G/DL (32-36); MEAN CORPUSCULAR VOLUME 88 FL (80-99); MEAN PLATELET VOLUME 10.3 FL (7.4-10.4); MONOCYTES # (AUTO) 0.8 X 10^3 (0.0-1.0); MONOCYTES % (AUTO) 10 % (0-12); NEUTROPHILS # (AUTO) 4.9 X 10^3 (1.8-7.8); NEUTROPHILS % (AUTO) 59 % (42-75); PLATELET COUNT 265 10^3/uL (130-400); RED CELL DISTRIBUTION WIDTH 15.4 % (10.0-14.5); WHITE BLOOD COUNT 8.4 10^3/uL (4.3-11.0)
[2019-08-20 06:04] LABS: ALBUMIN 3.6 GM/DL (3.2-4.5); BILIRUBIN,TOTAL 1.2 MG/DL (0.1-1.0); CALCIUM 8.6 MG/DL (8.5-10.1); CREATININE SERUM 1.5 MG/DL (0.60-1.30); POTASSIUM 5.5 MMOL/L (3.6-5.0); TOTAL PROTEIN 6.5 GM/DL (6.4-8.2)
[2019-08-20] MEDS: morphine INJ 4 MG/ML 1 ML (VIAL/SYRINGE) IV PRN ×2 (08:26→15:31)
[2019-08-20] MEDS ORDERED: LACTATED RINGERS 1,000 ML IV ONE ×2 (08:45→08:50)
[2019-08-20] MEDS ORDERED: amLODIPine 5 MG (NORVASC) TAB PO SCH ×2 (09:00→11:30)
[2019-08-20] MEDS ORDERED: ASPIRIN E.C. 81 MG (ECOTRIN) TAB PO SCH ×2 (09:00→11:28)
[2019-08-20] MEDS ORDERED: FAMOTIDINE 20 MG (PEPCID) TABLET PO SCH (09:00)
[2019-08-20] MEDS ORDERED: LOSARTAN 50 MG (COZAAR) TAB PO SCH ×2 (09:00→11:32)
[2019-08-20] MEDS ORDERED: HURRICAINE EXT TUBE (BENZOCAINE) XX PRN (09:15)
[2019-08-20] MEDS ORDERED: PATIENT MAY USE OWN MEDS, ALL MC SCH (09:30)
[2019-08-20] MEDS ORDERED: proPOfol 200 MG/20 ML (DIPRIVAN) VIAL IV ONE (10:26)
[2019-08-20] MEDS ORDERED: LIDOCAINE PF 2% 5 ML (XYLOCAINE) VIAL ONE (10:28)
--- NOTE | 2019-08-20 11:18 | Progress Note - Surgery ---
Subjective Date Seen by a Provider: Aug 20, 2019 Time Seen by a Provider: 08:20 Subjective/Events-last exam Pt states she is feeling well today. Had another episode of epigastric abdominal pain around 10pm last night, identical to previous pain shes been having for years. Pt also complains of new onset leg pain but attributes them to temperature. Otherwise no new complaints. Accompanied by family members in room. Objective Exam Vital Signs Date Time Temp Pulse Resp B/P (MAP) Pulse Ox O2 Delivery O2 Flow Rate FiO2 08/20/19 08:10 36.7 74 20 149/72 (97) 96 Room Air 08/20/19 08:05 97 Room Air 08/20/19 08:00 Room Air 08/20/19 07:00 68 08/20/19 03:53 37.8 68 20 130/62 (84) 94 NIV CPAP 08/20/19 01:32 65 08/20/19 01:00 37.3 76 20 140/60 (86) 96 Room Air 08/19/19 21:30 66 20 132/58 (82) 97 Room Air 08/19/19 20:00 37.8 65 16 135/37 (69) 97 08/19/19 20:00 Room Air 08/19/19 19:32 Room Air 08/19/19 19:00 63 08/19/19 16:00 37.5 71 16 133/61 (85) 97 Room Air 08/19/19 13:00 64 08/19/19 12:00 36.3 62 16 126/55 (78) 93 Room Air I & O 08/20/19 07:00 Intake Total 1340 ml Balance 1340 ml Capillary Refill : Less Than 3 Seconds General Appearance: No Apparent Distress, WD/WN HEENT: PERRL/EOMI, Moist Mucous Membranes; No Pale Conjunctivae (L), No Pale Conjunctivae (R), No Scleral Icterus (L), No Scleral Icterus (R) Neck: Full Range of Motion, Normal Inspection, Non Tender Respiratory: Chest Non Tender, Lungs Clear, Normal Breath Sounds, No Accessory Muscle Use, No Respiratory Distress Cardiovascular: Regular Rate, Rhythm, No Edema, Normal Peripheral Pulses Peripheral Pulses: 2+ Dorsalis Pedis (R), 2+ Left Dors-Pedis (L), 2+ Radial Pulses (R), 2+ Radial Pulses (L) Gastrointestinal: soft; No distended, No guarding, No rebound; tenderness (epig astric) Extremity: Normal Capillary Refill, Non Tender, No Pedal Edema, Calf Tenderness (mild on deep palpation ) Neurologic/Psychiatric: Alert, Oriented x3, No Motor/Sensory Deficits, Normal Mood/Affect Skin: Normal Color, Warm/Dry Lymphatic: No Adenopathy (supra/infraclavicular, axillary ) Results Lab Laboratory Tests 08/19/19 14:11: Troponin I < 0.028 08/20/19 05:10: White Blood Count 8.4, Red Blood Count 3.22L, Hemoglobin 8.9L, Hematocrit 28L, Mean Corpuscular Volume 88, Mean Corpuscular Hemoglobin 28, Mean Corpuscular Hemoglobin Concent 32, Red Cell Distribution Width 15.4H, Platelet Count 265, Mean Platelet Volume 10.3, Neutrophils (%) (Auto) 59, Lymphocytes (%) (Auto) 29, Monocytes (%) (Auto) 10, Eosinophils (%) (Auto) 2, Basophils (%) (Auto) 0, Neutrophils # (Auto) 4.9, Lymphocytes # (Auto) 2.4, Monocytes # (Auto) 0.8, Eosinophils # (Auto) 0.2, Basophils # (Auto) 0.0, Sodium Level 139, Potassium Level 5.5H, Chloride Level 112H, Carbon Dioxide Level 20L, Anion Gap 7, Blood Urea Nitrogen 30H, Creatinine 1.50H, Estimat Glomerular Filtration Rate 33, BUN/Creatinine Ratio 20, Glucose Level 107H, Calcium Level 8.6, Corrected Calcium 8.9, Total Bilirubin 1.2H, Aspartate Amino Transf (AST/SGOT) 14, Alanine Aminotransferase (ALT/SGPT) 12, Alkaline Phosphatase 179H, Total Protein 6.5, Albumin 3.6 Assessment/Plan Assessment/Plan Assessment/Plan Dysphagia epigastric abdominal pain history of esophagitis chronic gastritis Pt agrees to EGD today. After EGD, advance to regular diet. Clinical Quality Measures DVT/VTE Risk/Contraindication: Risk Factor Score Per Nursin RFS Level Per Nursing on Admit: 4+=Very High SHEREEN PAK DO Aug 20, 2019 11:18
--- NOTE | 2019-08-20 11:22 | Progress Note-Post Operative ---
Post-Operative Progess Note Surgeon (s)/Museum Service Scheduler (s) Surgeon SHEREEN PAK DO Museum Service Scheduler: none Pre-Operative Diagnosis hx antral ulcer, epigastric pain Post-Operative Diagnosis Gastritis Watermelon Stomach Hiatal Hernia Procedure & Operative Findings Date of Procedure 08/20/19 Procedure Performed/Findings EGD with bx Anesthesia Type IV sedation by [employer] SCIENTIST Estimated Blood Loss Estimated blood loss (mL): scant Specimens/Packing Specimens Removed antral bx body of stomach bx GE jxn bx SHEREEN PAK DO Aug 20, 2019 11:22
[2019-08-20] MEDS ORDERED: ALBUTEROL IH PRN (11:45)
[2019-08-20] MEDS ORDERED: SUCRALFATE 1 GM (CARAFATE) TAB ONE (11:58)
[2019-08-20] MEDS ORDERED: GABAPENTIN 100 MG (NEURONTIN) CAP PO ONE (12:15)
--- NOTE | 2019-08-20 13:18 | Anesthesia-General Post-Op ---
MAC Patient Condition Mental Status/LOC: Same as Preop Cardiovascular: Satisfactory Nausea/Vomiting: Absent Respiratory: Satisfactory Pain: Controlled Complications: Absent Post Op Complications Complications None Follow Up Care/Instructions Patient Instructions None needed. Anesthesiology Discharge Order Discharge Order Patient is doing well, no complaints, stable vital signs, no apparent adverse anesthesia problems. No complications reported per nursing. REMI STACY CRNA Aug 20, 2019 13:18
[2019-08-20] MEDS ORDERED: GABA-486 PO (14:07)
[2019-08-20] MEDS ORDERED: PANT40TA2 PO (14:07)
[2019-08-20] MEDS ORDERED: SUCR1TAB PO (14:07)
--- NOTE | 2019-08-20 14:17 | Discharge Summary ---
Discharge Summary Hospital Course Was the Problem List Reviewed?: Yes Problems/Dx: (1) Gastritis Status: Acute (2) Chest pain Status: Acute Qualifiers: Qualified Codes: R07.9 - Chest pain, unspecified (3) CAD (coronary artery disease) Qualifiers: Qualified Codes: I25.10 - Atherosclerotic heart disease of [place] coronary artery without angina pectoris (4) History of coronary artery stent placement Status: Chronic (5) COPD (chronic obstructive pulmonary disease) Status: Chronic Qualifiers: Qualified Codes: J44.9 - Chronic obstructive pulmonary disease, unspecified (6) Chronic renal insufficiency Status: Chronic Qualifiers: Qualified Codes: N18.3 - Chronic kidney disease, stage 3 (moderate) (7) Gout Status: Chronic Qualifiers: Qualified Codes: M10.9 - Gout, unspecified (8) Hyperlipidemia Status: Chronic Qualifiers: Qualified Codes: E78.2 - Mixed hyperlipidemia (9) Chronic anemia Status: Chronic (10) Acute pain of left shoulder Status: Acute (11) Neuropathy Status: Acute Hospital Course Date of Admission: Aug 19, 2019 at 02:55 Admission Diagnosis : Family Physician/Provider: Halle Dejesus DO Date of Discharge: 08/20/19 Discharge Diagnosis: Chest pain, atypical, Acute gastritis on EGD per Dr Espinoza, Acute neuropathy new onset prior to DC Hospital Course: Hospital course: Patient had an uneventful hospital course when she was admitted with vague type of left arm pain admitted to rule out acute coronary syndrome due to history of CAD with stent placement managed by Dr. Moody. Cardiology evaluated the patient checked echocardiogram found patient not to have acute coronary syndrome so I did consult Dr. Espinoza for suspicion of acute gastritis he performed EGD at day of discharge and confirmed moderate to severe gastritis placed on Carafate and proton pump inhibitor in addition to the H2 rocío. She began having neuropathic pain of her foot with history of sciatica in the past patient was given a low-dose of gabapentin which helped so she was discharged with her family with a new prescription of gabapentin, proton pump inhibitor and Carafate and was deemed stable for discharge follow-up with me in 1 week. Labs and Pending Lab Test: Laboratory Tests 08/19/19 14:11: Troponin I < 0.028 08/20/19 05:10: White Blood Count 8.4, Red Blood Count 3.22L, Hemoglobin 8.9L, Hematocrit 28L, Mean Corpuscular Volume 88, Mean Corpuscular Hemoglobin 28, Mean Corpuscular Hemoglobin Concent 32, Red Cell Distribution Width 15.4H, Platelet Count 265, Mean Platelet Volume 10.3, Neutrophils (%) (Auto) 59, Lymphocytes (%) (Auto) 29, Monocytes (%) (Auto) 10, Eosinophils (%) (Auto) 2, Basophils (%) (Auto) 0, Neutrophils # (Auto) 4.9, Lymphocytes # (Auto) 2.4, Monocytes # (Auto) 0.8, Eosinophils # (Auto) 0.2, Basophils # (Auto) 0.0, Sodium Level 139, Potassium Level 5.5H, Chloride Level 112H, Carbon Dioxide Level 20L, Anion Gap 7, Blood Urea Nitrogen 30H, Creatinine 1.50H, Estimat Glomerular Filtration Rate 33, BUN/Creatinine Ratio 20, Glucose Level 107H, Calcium Level 8.6, Corrected Calcium 8.9, Total Bilirubin 1.2H, Aspartate Amino Transf (AST/SGOT) 14, Alanine Aminotransferase (ALT/SGPT) 12, Alkaline Phosphatase 179H, Total Protein 6.5, Albumin 3.6 Home Meds Active Gabapentin 100 Mg Capsule 100 Mg PO TID PRN Protonix (Pantoprazole Sodium) 40 Mg Tablet.dr 40 Mg PO DAILY Sucralfate 1 Gm Tablet 1 Gm PO ACHS Cyclobenzaprine HCl 5 Mg Tablet 5 Mg PO TID Reported Fexofenadine HCl 180 Mg Tablet 180 Mg PO DAILY Singulair (Montelukast Sodium) 10 Mg Tablet 10 Mg PO DAILY Acid Curb Attendant (RANITIDINE) (Ranitidine HCl) 150 Mg Tablet 150 Mg PO BID Pravastatin Sodium 20 Mg Tablet 20 Mg PO HS Losartan Potassium 50 Mg Tablet 50 Mg PO DAILY Aspirin EC (Aspirin) 81 Mg Tablet. 81 Mg PO DAILY Proair Hfa (Albuterol Sulfate) 1 Puff Puff 2 Puff IH Q4H PRN 1 PUFF = 90 MCG Alprazolam 0.5 Mg Tablet 0.5 Mg PO TID PRN Amlodipine Besylate 5 Mg Tablet 7.5 Mg PO DAILY take 1 1/2 of 5mg tab for 7.5mg total Assessment/Pt Instructions Dr Dejesus appt this week Discharge Planning: <30 minutes discharge planning Discharge Instructions Discharge Diet: No Restrictions Activity as Tolerated: Yes Discharge Physical Examination Vital Signs Vital Signs Date Time Temp Pulse Resp B/P (MAP) Pulse Ox O2 Delivery O2 Flow Rate FiO2 08/20/19 13:00 75 08/20/19 11:15 37.5 24 161/77 (105) 96 Room Air 08/20/19 10:45 10 General Appearance: No Apparent Distress, WD/WN Neurologic/Psychiatric: Alert, Oriented x3, No Motor/Sensory Deficits, Normal Mood/Affect Allergies: Coded Allergies: aspirin (Verified Allergy, Mild, 02/07/10) codeine (Verified Allergy, Mild, 02/07/10) oxycodone (Verified Allergy, Mild, 02/07/10) rofecoxib (Verified Allergy, Mild, 02/07/10) Discharge Summary Date of Admission Aug 19, 2019 at 02:55 Date of Discharge Discharge Date: Aug 20, 2019 Admission Diagnosis Assessment: Atypical chest pain with history of stent COPD History of esophageal spasms and history of Robert fundoplication Hypertension Gout Chronic renal insufficiency Anemia Plan: Consult cardiology Consult Gen. surgery Home meds Monitor closely Discharge Diagnosis (1) Chest pain Status: Acute Qualifiers: Qualified Codes: R07.9 - Chest pain, unspecified (2) CAD (coronary artery disease) Qualifiers: Qualified Codes: I25.10 - Atherosclerotic heart disease of [place] coronary artery without angina pectoris (3) History of coronary artery stent placement Status: Chronic (4) COPD (chronic obstructive pulmonary disease) Status: Chronic Qualifiers: Qualified Codes: J44.9 - Chronic obstructive pulmonary disease, unspecified (5) Chronic renal insufficiency Status: Chronic Qualifiers: Qualified Codes: N18.3 - Chronic kidney disease, stage 3 (moderate) (6) Gout Status: Chronic Qualifiers: Qualified Codes: M10.9 - Gout, unspecified (7) Hyperlipidemia Status: Chronic Qualifiers: Qualified Codes: E78.2 - Mixed hyperlipidemia (8) Chronic anemia Status: Chronic (9) Acute pain of left shoulder Status: Acute Clinical Quality Measures DVT/VTE Risk/Contraindication: Risk Factor Score Per Nursin RFS Level Per Nursing on Admit: 4+=Very High HALLE DEJESUS DO Aug 20, 2019 14:17
--- NOTE | 2019-08-20 15:14 | OPERATIVE REPORT ---
DATE OF SERVICE: PREOPERATIVE DIAGNOSES: Epigastric pain, history of esophagitis and gastric ulcer. 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 PROCEDURE: EGD with biopsy. SURGEON: Elliot Espinoza DO SPORTS MARKETING COORDINATOR: None. ANESTHESIA: IV sedation by the DISTRICT ADVISER. SPECIMEN: Biopsy from the antrum, one biopsy from the body of stomach and one biopsy from the GE junction. BLOOD LOSS: Scant. FLUIDS: Per anesthesia. POSTOPERATIVE CONDITION: Stable. INDICATION FOR PROCEDURE: The patient is an 88-year-old female who came in with epigastric pain. Cardiac workup was negative. She has a history of esophagitis, gastric ulcer and has not been taking Zantac and needed a repeat EGD. FINDINGS: The patient had pretty severe gastritis looked like a watermelon stomach. Pictures taken. Duodenum looked okay. Small hiatal hernia. Biopsy done. PROCEDURE NOTE: After informed consent was obtained, the patient was brought to the endoscopy suite and placed in the bed in the left lateral decubitus position. She was administered IV sedation by the DISTRICT ADVISER who then monitored her vitals the entire time, heart rate, blood pressure and pulse ox and the scope was inserted down the mouth through the esophagus into the stomach. Upon entering the stomach, noted what looked like a watermelon stomach, severe lines of gastritis, pushed into the duodenum. Duodenum looked okay. Pulled back and did a biopsy of the antrum, then did a biopsy from the body of stomach and then retroflexed the scope, saw a small hiatal hernia, took a picture of this. Pulled into the GE junction. She had some mild creeping up of the Z line. Did a biopsy at the GE junction and then took one more picture of the stomach, suctioned out the air in the stomach, pulled the scope up the esophagus. The esophagus looked normal, took a picture on the way out. Pulled the scope out. The patient tolerated the procedure. She was recovered in endoscopy suite. Job ID: [id number] DocumentID: [id number] Dictated Date: 08/20/2019 10:48:42 Fuel Distribution System Operator Date: 08/20/2019 15:12:52 Dictated By: ELLIOT ESPINOZA DO
--- NOTE | 2019-08-20 15:21 | Cardiology Progress Note ---
Cardiology SOAP Progress Note Subjective: EGD today. No further chest discomfort. Objective: I&O/Vital Signs 08/20/19 08/20/19 08/20/19 08/20/19 03:53 07:00 08:00 08:05 Temp 37.8 Pulse 68 68 Resp 20 B/P (MAP) 130/62 (84) Pulse Ox 94 97 O2 Delivery NIV CPAP Room Air Room Air 08/20/19 08/20/19 08/20/19 08/20/19 08:10 10:45 10:50 10:55 Temp 36.7 Pulse 74 69 68 71 Resp 20 16 16 16 B/P (MAP) 149/72 (97) Pulse Ox 96 99 99 99 O2 Delivery Room Air OxyMask Room Air Room Air O2 Flow Rate 10 08/20/19 08/20/19 11:15 13:00 Temp 37.5 Pulse 81 75 Resp 24 B/P (MAP) 161/77 (105) Pulse Ox 96 O2 Delivery Room Air 08/20/19 00:00 Intake Total 340 ml Balance 340 ml Weight (Pounds): 160 Weight (Ounces): 0.0 Weight (Calculated Kilograms): 72.816183 Constitutional: appears stated age, AAO x 3; No apparent distress; well- developed, well-nourished Respiratory: chest is bilaterally symmetric, lungs clear to auscultation Cardiovascular: regular rate-rhythm, S1 and S2 Gastrointestional: soft, round, audible bowel sounds; No spleenomegaly Extremities: normal range of motion, non-tender, normal inspection; No clubbing, No cyanosis; no lower extremity edema bilateral; No significant edema Neurologic/Psychiatric: no motor/sensory deficits, alert, normal mood/affect, oriented x 3, power is 5/5 both on sides Skin: normal color, warm/dry; No rash, No ulcerations Results/Procedures: Labs Laboratory Tests 08/20/19 05:10: White Blood Count 8.4, Red Blood Count 3.22L, Hemoglobin 8.9L, Hematocrit 28L, Mean Corpuscular Volume 88, Mean Corpuscular Hemoglobin 28, Mean Corpuscular Hemoglobin Concent 32, Red Cell Distribution Width 15.4H, Platelet Count 265, Mean Platelet Volume 10.3, Neutrophils (%) (Auto) 59, Lymphocytes (%) (Auto) 29, Monocytes (%) (Auto) 10, Eosinophils (%) (Auto) 2, Basophils (%) (Auto) 0, Neutrophils # (Auto) 4.9, Lymphocytes # (Auto) 2.4, Monocytes # (Auto) 0.8, Eosinophils # (Auto) 0.2, Basophils # (Auto) 0.0, Sodium Level 139, Potassium Level 5.5H, Chloride Level 112H, Carbon Dioxide Level 20L, Anion Gap 7, Blood Urea Nitrogen 30H, Creatinine 1.50H, Estimat Glomerular Filtration Rate 33, BUN/Creatinine Ratio 20, Glucose Level 107H, Calcium Level 8.6, Corrected Calcium 8.9, Total Bilirubin 1.2H, Aspartate Amino Transf (AST/SGOT) 14, Alanine Aminotransferase (ALT/SGPT) 12, Alkaline Phosphatase 179H, Total Protein 6.5, Albumin 3.6 A/P: Assessment/Dx: Shoulder pain/chest pain, Mild to moderate CAD, Hypertension, Hyperlipidemia, COPD Plan: Shoulder pain/chest pain, ACS ruled out with serial negative troponin. Patient can be discharged to follow-up with Dr. Moody as an outpatient. EGD done by Dr. Espinoza shows gastritis. Defer to the primary team. Mild to moderate CAD, ACS ruled out. Hypertension, continue outpatient medical therapy. Hyperlipidemia, continue pravastatin. COPD, no acute medical issues. Thank you for your consultation. Please call me if you have any questions. Keira Stark MD, FACP, FACC, FSCAI, FHRS, CCDS Interventional Cardiology Cardiac Electrophysiology Vascular Medicine and Endovascular Interventions Teresa STARK MD Aug 20, 2019 15:21
[2019-08-20] MEDS ORDERED: SUCRALFATE 1 GM (CARAFATE) TAB PO SCH (16:00)
[2019-08-20] MEDS ORDERED: PRAVASTATIN 20 MG (PRAVACHOL) TAB PO SCH (21:00)
== END 2019-08-20 14:05 | disposition home or self-care (01) ==
LOC: EDUNIT# 01:46 → ER 01:48 → UNDOADMOB 02:55 → 4TH 02:55 → UNDODISOB 08-20 15:50
PROVIDERS: ADMIT Family Medicine; ATTEND Family Medicine
DX: K29.50 Unspecified chronic gastritis without bleeding (principal); I24.9 Acute ischemic heart disease, unspecified; I10 Essential (primary) hypertension; I25.119 Atherosclerotic heart disease of native coronary artery with unspecified angina pectoris; K21.0 Gastro-esophageal reflux disease with esophagitis; K31.89 Other diseases of stomach and duodenum; K44.9 Diaphragmatic hernia without obstruction or gangrene; J44.9 Chronic obstructive pulmonary disease, unspecified; M19.012 Primary osteoarthritis, left shoulder; M25.512 Pain in left shoulder; M10.9 Gout, unspecified; E78.00 Pure hypercholesterolemia, unspecified; E78.2 Mixed hyperlipidemia; N19 Unspecified kidney failure; D64.9 Anemia, unspecified; Z87.11 Personal history of peptic ulcer disease; Z88.6 Allergy status to analgesic agent; Z88.5 Allergy status to narcotic agent; Z79.82 Long term (current) use of aspirin; Z87.891 Personal history of nicotine dependence; Z95.1 Presence of aortocoronary bypass graft; Z82.49 Family history of ischemic heart disease and other diseases of the circulatory system; Z82.61 Family history of arthritis; Z83.79 Family history of other diseases of the digestive system
CPT/HCPCS: 36415; 71045; 80053; 80061; 83735; 83874; 83880; 84484; 85025; 85379; 85610; 85730; 87081; 88305; 88342; 93005; 93306; 94760; 96374; 96375; 96376; G0378

== ENCOUNTER 2019-12-04 16:53 | Emergency (ER) | payer MEDICARE ==
[~2019-12-04] VITALS: Ht 152.4 cm; Wt 75.0 kg
[~2019-12-04 16:53] MED LIST changes: +FEXO-46 PO; +GABA-486 PO; +MONT10TA21 PO; +SUCR1TAB PO
[2019-12-04] MEDS ORDERED: NITROGLYCERIN 0.4 MG SL TABS BTL 25'S SL PRN ×2 (17:00→17:30)
[2019-12-04] MEDS ORDERED: ASPIRIN 81 MG CHEW (CHILDREN'S ASA) PO ONE (17:15)
[2019-12-04 17:16] LABS: BASOPHILS % (AUTO) 1 % (0-10); EOSINOPHILS # (AUTO) 0.2 10^3/uL (0.0-0.3); EOSINOPHILS % (AUTO) 2 % (0-10); HEMATOCRIT 28 % (35-52); HEMOGLOBIN 8.8 G/DL (11.5-16.0); LYMPHOCYTES # (AUTO) 2.5 X 10^3 (1.0-4.0); LYMPHOCYTES % (AUTO) 30 % (12-44); MEAN CORPUSCULAR HEMOGLOBIN 27 PG (25-34); MEAN CORPUSCULAR HGB CONC 31 G/DL (32-36); MEAN CORPUSCULAR VOLUME 87 FL (80-99); MONOCYTES # (AUTO) 0.7 X 10^3 (0.0-1.0); MONOCYTES % (AUTO) 9 % (0-12); NEUTROPHILS # (AUTO) 4.9 X 10^3 (1.8-7.8); NEUTROPHILS % (AUTO) 59 % (42-75); PLATELET COUNT 345 10^3/uL (130-400); RED CELL DISTRIBUTION WIDTH 15.2 % (10.0-14.5); WHITE BLOOD COUNT 8.3 10^3/uL (4.3-11.0)
--- NOTE | 2019-12-04 17:24 | ED Chest Pain ---
General Chief Complaint: Chest Pain Stated Complaint: L SHOULDER AND ARM PAIN Nursing Triage Note: Pt to ED from chiropractor. Pt reports having pain in the L shoulder blade last night. Pt went to chiropractor for scheduled appointment today and before chiropractor began procedure pt began having pain down L arm and became SOB. Chiropractor sent pt by POV to ED. Nursing Sepsis Screen: No Definite Risk Source: patient (LIMITED HISTORIAN), family (DAUGHTERS/OTHER FAMILY MEMBERS) History of Present Illness Date Seen by Provider: Dec 04, 2019 Time Seen by Provider: 16:58 Initial Comments PT ARRIVES VIA POV WITH FAMILY PT C/O PAIN TO LEFT SHOULDER BLADE--STARTED LAST NIGHT, AND KEPT HER UP ALL NIGHT, AND HAS CONTINUED ALL DAY TODAY WENT TO CHIROPRACTOR AND PAIN BECAME WORSE, AND BEGAN TO RADIATE DOWN LEFT ARM, AND SHE BEGAN HAVING SHORTNESS OF BREATH AROUND [id number], AND CHIROPRACTOR SENT HER HERE. TOOK TYLENOL AT 1600, POSSIBLY HELPED A LITTLE BEGAN TO HAVE LIGHTHEADEDNESS/DIZZINESS NO SWEATS NO NAUSEA/VOMITING NO PALPITATIONS NO CHANGE IN CHRONIC LEFT ANKLE SWELLING NO COUGH, FEVER OR RECENT ILLNESS PAIN IS WORSE WITH LAYING FLAT ON HER BACK OR MOVING LEFT ARM. HAS HISTORY OF SIMILAR PT HAS HAD CAD WITH STENT X 1, HX OF CHF, COPD AND HTN. SHE ALSO HAS CHRONIC BACK PAIN AND BILATERAL SHOULDER PAIN WITH CHRONIC BILATERAL ROTATOR CUFF TEARS. PT HAS BEEN UNDER MUCH STRESS RECENTLY, HER DAUGHTER 2 WEEKS AGO AT AGE 57, AND [facility] WAS 1 WEEK AGO. PCP: DR. MARTINEZ DIRECTOR PERIOPERATIVE: DR. HOLBROOK Allergies and Home Medications Allergies Coded Allergies: codeine (Verified Allergy, Mild, 02/07/10) oxycodone (Verified Allergy, Mild, 02/07/10) rofecoxib (Verified Allergy, Mild, 02/07/10) Home Medications Albuterol Sulfate 1 Puff Puff, 2 PUFF IH Q4H PRN for SHORTNESS OF BREATH, (Reported) 1 PUFF = 90 MCG Alprazolam 0.5 Mg Tablet, 0.5 MG PO TID PRN for ANXIETY, (Reported) Amlodipine Besylate 5 Mg Tablet, 7.5 MG PO DAILY, (Reported) take 1 1/2 of 5mg tab for 7.5mg total Aspirin 81 Mg Tablet., 81 MG PO DAILY, (Reported) Fexofenadine HCl 180 Mg Tablet, 180 MG PO DAILY, (Reported) Gabapentin 100 Mg Capsule, 100 MG PO TID PRN for PAIN-MILD Prescribed by: TAHIR MARTINEZ on 08/20/191406 Lidocaine 1 Each Adh..patch, 1 EACH TP DAILY PRN Prescribed by: KANDY SALAZAR on 12/04/191808 Losartan Potassium 50 Mg Tablet, 50 MG PO DAILY, (Reported) Montelukast Sodium 10 Mg Tablet, 10 MG PO DAILY, (Reported) Ondansetron 4 Mg Tab.rapdis, 4 MG PO Q4H Prescribed by: KANDY SALAZAR on 12/04/191808 Pantoprazole Sodium 40 Mg Tablet.dr, 40 MG PO DAILY Prescribed by: TAHIR MARTINEZ on 08/20/191406 Pravastatin Sodium 20 Mg Tablet, 20 MG PO HS, (Reported) Ranitidine HCl 150 Mg Tablet, 150 MG PO BID, (Reported) Sucralfate 1 Gm Tablet, 1 GM PO ACHS Prescribed by: TAHIR MARTINEZ on 08/20/191406 Tramadol HCl 50 Mg Tablet, 50 MG PO Q4H PRN for PAIN-MODERATE Prescribed by: KANDY SALAZAR on 12/04/191808 Patient Home Medication List Home Medication List Reviewed: Yes Review of Systems Review of Systems Constitutional: see HPI; No chills, No diaphoresis; dizziness; No fever Respiratory: See HPI, Orthopnea, Shortness of Air, SOA With Exertion Cardiovascular: See HPI; Denies Irregular Heart Rate; Lightheadedness; Denies Palpitations, Denies Syncope Gastrointestinal: No Symptoms Reported; Denies Abdominal Pain, Denies Nausea Genitourinary: No Symptoms Reported Musculoskeletal: see HPI, back pain Skin: no symptoms reported Psychiatric/Neurological: See HPI (STRESS DUE TO RECENT OF DAUGHTER) Endocrine: No Symptoms Reported Hematologic/Lymphatic: No Symptoms Reported Past Nmtozts-Czzilr-Ywndci Hx Past Med/Social Hx: Reviewed and Corrections made Patient Social History Alcohol Use: Denies Use Recreational Drug Use: No Smoking Status: Former Smoker (QUIT 1979) Type Used: Cigarettes Former Smoker, Quit: Mar 08, 1980 2nd Hand Smoke Exposure: No Recent Foreign Travel: No Contact w/Someone Who Travel: No Recent Infectious Disease Expo: No Recent Hopitalizations: No Immunizations Up To Date Tetanus Booster (TDap): Unknown PED Vaccines UTD: No Date of Pneumonia Vaccine: Dec 21, 2017 Date of Influenza Vaccine: Aug 22, 2017 Seasonal Allergies Seasonal Allergies: No Past Medical History Surgeries: Yes (LAP MIGUEL ANGEL FUNDOPLICATION;EGD'S;BILAT CATARACTS;BILATERAL TKR;CATH-STENT X1) Appendectomy, Bowel Surgery, Cardiac, Coronary Stent, Gallbladder, Joint Replacement, Orthopedic Respiratory: Yes (ASTHMA) Asthma, COPD Currently Using CPAP: No Currently Using BIPAP: No Cardiac: Yes (CARDIAC CATH-STENT X 1; CHF) Chronic Edema/Swelling, Coronary Artery Disease, High Cholesterol, Hypertension Neurological: No Reproductive Disorders: No (HAD 9 CHILDREN) Female Reproductive Disorders: Denies Sexually Transmitted Disease: No HIV/AIDS: No Genitourinary: Yes (CHRONIC RENAL FAILURE/INSUFFICIENCY) Renal Failure Gastrointestinal: Yes (EGD'S-LAST ONE 07/2019; LAP MIGUEL ANGEL FUNDOPLICATION; CHRONIC GASTRITIS;) Gastroesophageal Reflux, Hiatal Hernia, Ulcer Musculoskeletal: Yes (OSTEOARTHRITIS; BILAT TKR; CHRONIC BILAT TORN ROTATOR CUFFS) Degenerate Disk Disease, Arthritis, Chronic Back Pain Endocrine: No Cataract Loss of Vision: Denies Hearing Impairment: Hard of Hearing Cancer: No Psychosocial: No Integumentary: Yes Eczema Blood Disorders: Yes (CHRONIC ANEMIA--HGB IN 8'S NORMALLY) Adverse Reaction/Blood Tranf: No Family Medical History Abdominal aortic aneurysm 19 FATHER Aphasia G8 SISTER Arthritis 19 MOTHER Cardiovascular disease 19 MOTHER G8 BROTHER Completed stroke G8 SISTER Deafness or hearing loss 19 MOTHER Dementia 19 MOTHER Gastroenteritis 19 MOTHER Hypertension 19 MOTHER G8 SISTER Myocardial infarction G8 BROTHER Psychosocial problem G8 SISTER Respiratory disorder 19 MOTHER G8 BROTHER Thyroid disease G8 BROTHER No Family History of: AIDS [place]'s disease Alcoholism Alzheimer's disease Asthma Cancer of mouth Cataracts Colon cancer Congenital disease Congenital heart disease Coronary thrombosis Cystic fibrosis Diabetes mellitus Drug abuse Dysphasia Fibrocystic disease of breast Glaucoma Headache disorder Hypercholesterolemia Infertility Kidney disease Neoplasm Not obtainable due to adoption Osteoporosis Parkinson's disease Prostate cancer Seizure disorder Severe allergy Tuberculosis Visual disorder AAA, Heart Disease, Cancer, CAD Over 55 Years Old, Psychiatric Problems, Stroke Physical Exam Vital Signs Vital Signs - First Documented 12/04/19 16:55 Temp 36.7 Pulse 78 Resp 20 B/P (MAP) 147/68 (94) Pulse Ox 96 O2 Delivery Room Air Capillary Refill : Less Than 3 Seconds Height, Weight, BMI Height: 5'0" Weight: 160lbs. 0.0oz. 72.327521bh; 32.00 BMI Method:Stated General Appearance: No Apparent Distress, WD/WN, Anxious Neck: Full Range of Motion, Non Tender, Supple Respiratory: Chest Non Tender, Normal Breath Sounds, No Accessory Muscle Use, No Respiratory Distress Cardiovascular: Regular Rate, Rhythm, No JVD, No Murmur, Normal Peripheral Pulses Gastrointestinal: Non Tender, Soft Extremity: Normal Capillary Refill, Normal Inspection, No Calf Tenderness, No Pedal Edema, Other (PAIN TO LEFT SCAPULA AND POSTERIOR SHOULDER WITH MOVEMENT OF LEFT ARM/SHOULDER. THIS REPRODUCES PAIN ) Neurologic/Psychiatric: Alert, Oriented x3, No Motor/Sensory Deficits, systems integrator II- XII Norm as Tested Skin: Normal Color, Warm/Dry; No Rash Other comments TENDERNESS TO LEFT SCAPULAR AREA--PALPATION DRAMATICALLY REPRODUCES PAIN Progress/Results/Core Measures Results/Orders Lab Results Laboratory Tests Test 12/04/19 17:05 Range/Units White Blood Count 8.3 4.3-11.0 10^3/uL Red Blood Count 3.27 L 4.35-5.85 10^6/uL Hemoglobin 8.8 L 11.5-16.0 G/DL Hematocrit 28 L 35-52 % Mean Corpuscular Volume 87 80-99 FL Mean Corpuscular Hemoglobin 27 25-34 PG Mean Corpuscular Hemoglobin Concent 31 L 32-36 G/DL Red Cell Distribution Width 15.2 H 10.0-14.5 % Platelet Count 345 130-400 10^3/uL Mean Platelet Volume 10.0 7.4-10.4 FL Neutrophils (%) (Auto) 59 42-75 % Lymphocytes (%) (Auto) 30 12-44 % Monocytes (%) (Auto) 9 0-12 % Eosinophils (%) (Auto) 2 0-10 % Basophils (%) (Auto) 1 0-10 % Neutrophils # (Auto) 4.9 1.8-7.8 X 10^3 Lymphocytes # (Auto) 2.5 1.0-4.0 X 10^3 Monocytes # (Auto) 0.7 0.0-1.0 X 10^3 Eosinophils # (Auto) 0.2 0.0-0.3 10^3/uL Basophils # (Auto) 0.0 0.0-0.1 10^3/uL Prothrombin Time 13.6 12.2-14.7 SEC INR Comment 1.0 0.8-1.4 Activated Partial Thromboplast Time 29 24-35 SEC Sodium Level 139 135-145 MMOL/L Potassium Level 5.2 H 3.6-5.0 MMOL/L Chloride Level 112 H 98-107 MMOL/L Carbon Dioxide Level 17 L 21-32 MMOL/L Anion Gap 10 5-14 MMOL/L Blood Urea Nitrogen 36 H 7-18 MG/DL Creatinine 1.87 H 0.60-1.30 MG/DL Estimat Glomerular Filtration Rate 25 BUN/Creatinine Ratio 19 Glucose Level 108 H 70-105 MG/DL Calcium Level 8.6 8.5-10.1 MG/DL Corrected Calcium 8.5 8.5-10.1 MG/DL Magnesium Level 2.1 1.6-2.4 MG/DL Total Bilirubin 0.9 0.1-1.0 MG/DL Aspartate Amino Transf (AST/SGOT) 14 5-34 U/L Alanine Aminotransferase (ALT/SGPT) 10 0-55 U/L Alkaline Phosphatase 171 H 40-136 U/L Total Creatine Kinase 45 29-168 U/L Creatine Kinase MB 1.6 <6.6 NG/ML Myoglobin 100.1 H 10.0-92.0 NG/ML Troponin I < 0.028 <0.028 NG/ML B-Type Natriuretic Peptide 122.1 H <100.0 PG/ML Total Protein 7.7 6.4-8.2 GM/DL Albumin 4.1 3.2-4.5 GM/DL Amylase Level 99 25-125 U/L Lipase 39 8-78 U/L My Orders Orders - KANDY SALAZAR DO Cbc With Automated Diff (12/04/19 16:59) Magnesium (12/04/19 16:59) Chest 1 View, Ap/Pa Only (12/04/19 16:59) Ekg Tracing (12/04/19 16:59) Comprehensive Metabolic Panel (12/04/19 16:59) Myoglobin Serum (12/04/19 16:59) Protime With Inr (12/04/19 16:59) Partial Thromboplastin Time (12/04/19 16:59) O2 (12/04/19 16:59) Monitor-Rhythm Ecg Trace Only (12/04/19 16:59) Ed Iv/Invasive Line Start (12/04/19 16:59) Creatine Kinase (12/04/19 16:59) Creatine Kinase Mb (12/04/19 16:59) Lipase (12/04/19 16:59) Amylase (12/04/19 16:59) BNP (12/04/19 16:59) Troponin I (12/04/19 16:59) Nitroglycerin 0.4 Mg Btl 25's (Nitrostat (12/04/19 17:00) Aspirin Chewable Tablet (Baby Aspirin Ch (12/04/19 17:15) Nitroglycerin 0.4 Mg Btl 25's (Nitrostat (12/04/19 17:30) Fentanyl Injection (Sublimaze Injection (12/04/19 17:43) Medications Given in ED Current Medications Medications Dose Ordered Sig/Jeremiah Route Start Time Stop Time Status Last Admin Dose Admin Aspirin 324 mg ONCE ONCE PO 12/04/19 17:15 12/04/19 17:16 DC 12/04/19 17:32 324 MG Nitroglycerin 0.4 mg UD PRN SL 12/04/19 17:00 12/04/19 18:27 DC 12/04/19 17:31 0.4 MG Vital Signs/I&O 12/04/19 12/04/19 12/04/19 16:55 17:32 18:22 Temp 36.7 36.7 Pulse 78 68 Resp 20 17 B/P (MAP) 147/68 (94) 117/50 (94) Pulse Ox 96 98 O2 Delivery Room Air Room Air Room Air Blood Pressure Mean: 94 Progress Progress Note : Progress Note MINIMAL RELIEF WITH NTG MODERATE RELIEF WITH FENTANYL NO DETERIORATION IN PT'S CONDITION DURING ER STAY Initial ECG Impression Date: Dec 04, 2019 Initial ECG Impression Time: 16:56 Initial ECG Rate: 82 Initial ECG Rhythm: Normal Sinus Initial ECG Impression: 1st Degree AV Block Initial ECG Comparisson: Unchanged Diagnostic Imaging Comments CXR--BORDERLINE CARDIOMEGALY, OTHERWISE NO ACUTE PROCESS, PER RADIOLOGIST REPORT AT 1743 Reviewed: Reviewed by Me Departure Communication (Admissions) 171--DR. HOLBROOK HERE, FAMILY MEMBERS CALLED HIM PRIOR TO PT'S ARRIVAL. 1756--SPOKE WITH DR. HOLBROOK, REVIEWED LAB RESULTS, AND HE ADVISES TO SEND PT HOME, AND WILL FOLLOW UP IN OFFICE IF NEEDED Impression Primary Impression: Pain of left scapula Additional Impressions: MUSCULOSKELETAL PAIN OF LEFT UPPER BACK Situational anxiety Disposition: 01 HOME, SELF-CARE Condition: Improved Departure-Patient Inst. Referrals: TAHIR MARTINEZ DO (PCP/Family) Primary Care Physician ELO HOLBROOK MD Patient Instructions: Muscle and Bone Pain (DC) Add. Discharge Instructions: TAKE YOUR MEDICATIONS PRESCRIBED FOLLOW UP WITH DR. MARTINEZ OR DR. HOLBROOK THIS WEEK FOR FURTHER CARE RETURN TO ER IF WORSE All discharge instructions reviewed with patient and/or family. Voiced understanding. Scripts Ondansetron (Ondansetron Odt) 4 Mg Tab.rapdis 4 MG PO Q4H for Nausea/Vomiting, #10 TAB Prov: KANDY SALAZAR DO 12/04/19 Tramadol HCl (Ultram) 50 Mg Tablet 50 MG PO Q4H PRN for PAIN-MODERATE for 3 Days, #10 TAB Prov: KANDY SALAZAR DO 12/04/19 Lidocaine (Lidocaine 5% Patch) 1 Each Adh..patch 1 EACH TP DAILY PRN, #7 PATCH Prov: KANDY SALAZAR DO 12/04/19 KANDY SALAZAR DO Dec 04, 2019 17:24
--- NOTE | 2019-12-04 17:34 | Diagnostic Imaging Report ---
INDICATION: Left arm pain. TECHNIQUE: Single view chest 5:26 PM. CORRELATION STUDY: 08/11/2019 FINDINGS: Heart size is mildly larger from prior study likely owing to limited depth of inspiration. Vasculature appears be within normal limits. The lungs are clear with no consolidating infiltrate. There is no significant effusion or pneumothorax. IMPRESSION: 1. Borderline heart size likely somewhat accentuated by technique. No acute abnormality. Dictated by: Dictated on workstation # [id number]
[2019-12-04 17:35] LABS: PROTHROMBIN TIME PATIENT 13.6 SEC (12.2-14.7)
[2019-12-04 17:41] LABS: ALBUMIN 4.1 GM/DL (3.2-4.5); BILIRUBIN,TOTAL 0.9 MG/DL (0.1-1.0); CALCIUM 8.6 MG/DL (8.5-10.1); CREATININE SERUM 1.87 MG/DL (0.60-1.30); MAGNESIUM 2.1 MG/DL (1.6-2.4); POTASSIUM 5.2 MMOL/L (3.6-5.0); TOTAL PROTEIN 7.7 GM/DL (6.4-8.2)
[2019-12-04] MEDS ORDERED: fentaNYL INJECTION 100 MCG/2 ML AMP IVP STA (17:43)
[2019-12-04 17:48] LABS: CREATINE KINASE MB 1.6 NG/ML (<6.6)
[2019-12-04] MEDS ORDERED: TRAM-42 PO (18:09)
[2019-12-04] MEDS ORDERED: ONDA4TAB11 PO (18:09)
[2019-12-04] MEDS ORDERED: LIDO700A45 TP (18:09)
[2019-12-04 18:22] VITALS: BP 117/50
== END 2019-12-04 18:25 | disposition home or self-care (01) ==
LOC: EDUNIT# 16:53 → ER 16:55
DX: M25.512 Pain in left shoulder (principal); M79.10 Myalgia, unspecified site; M54.6 Pain in thoracic spine; F41.8 Other specified anxiety disorders; J44.9 Chronic obstructive pulmonary disease, unspecified; I10 Essential (primary) hypertension; E78.00 Pure hypercholesterolemia, unspecified; I25.10 Atherosclerotic heart disease of native coronary artery without angina pectoris; D64.9 Anemia, unspecified; K21.9 Gastro-esophageal reflux disease without esophagitis; Z88.5 Allergy status to narcotic agent; Z88.8 Allergy status to other drugs, medicaments and biological substances; Z79.82 Long term (current) use of aspirin; Z96.653 Presence of artificial knee joint, bilateral; Z87.891 Personal history of nicotine dependence; Z90.49 Acquired absence of other specified parts of digestive tract; Z95.5 Presence of coronary angioplasty implant and graft; Z82.49 Family history of ischemic heart disease and other diseases of the circulatory system
CPT/HCPCS: 36415; 71045; 80053; 82150; 82550; 82553; 83690; 83735; 83874; 83880; 84484; 85025; 85610; 85730; 93005; 93041; 96374

== ENCOUNTER 2019-12-25 11:15 | Outpatient (RCR) | payer MEDICARE, OTHER ==
[~2019-12-25 11:15] MED LIST changes: +LIDO700A45 TP; +ONDA4TAB11 PO; +TRAM-42 PO
[2019-12-26] MEDS ORDERED: HYDR-700 PO (11:54)
[2019-12-26] MEDS ORDERED: MONT10TA26 PO (11:54)
[2019-12-26] MEDS ORDERED: ALBU18HF2 INH (11:54)
[2019-12-26] MEDS ORDERED: METH1ADH5 TP (11:54)
[2019-12-26] MEDS ORDERED: ALPR0.254 PO (11:54)
[2019-12-26] MEDS ORDERED: TRAM50TA3 PO (11:54)
[2019-12-26] MEDS ORDERED: FLUT1BLS3 INH (11:54)
[2019-12-26] MEDS ORDERED: PANT40TA3 PO (11:54)
[2019-12-26] MEDS ORDERED: ACHD5005 PO (11:54)
[2019-12-26] MEDS ORDERED: ONDA4TAB11 PO (11:54)
[2020-01-04] MEDS ORDERED: SUCR1TAB PO (06:03)
[2020-01-04] MEDS ORDERED: MORP100S3 PO (06:03)
[2020-01-04] MEDS ORDERED: BACL10TA PO (06:03)
[2020-01-04] MEDS ORDERED: AMOX500C2 PO (06:03)
[2020-01-04] MEDS ORDERED: TMSL.4C PO (06:03)
[2020-01-04] MEDS ORDERED: LORAZ30SOL PO (06:03)
[2020-01-07] MEDS ORDERED: METO-333 PO (12:28)
[2020-01-07] MEDS ORDERED: HYDR-3923 PO (12:28)
[2020-01-07] MEDS ORDERED: RISP0.253 PO (12:28)
[2020-01-07] MEDS ORDERED: AMLO5TAB9 PO (12:28)
[2020-01-07] MEDS ORDERED: CLON0.1T PO (12:28)
[2020-01-07] MEDS ORDERED: DONE5TAB8 PO (12:31)
== END 2020-01-29 14:27 | disposition home or self-care (01) ==
PROVIDERS: ATTEND Internal Medicine
DX: M25.512 Pain in left shoulder (principal); M54.5 Low back pain; M25.552 Pain in left hip; I10 Essential (primary) hypertension; J45.909 Unspecified asthma, uncomplicated; M19.90 Unspecified osteoarthritis, unspecified site

== ENCOUNTER 2019-12-25 19:34 | Inpatient (IN) | payer MEDICARE, OTHER ==
[~2019-12-25] VITALS: Ht 152 cm; Wt 80.0 kg
[2019-12-25 20:01] LABS: BASOPHILS % (AUTO) 0 % (0-10); EOSINOPHILS % (AUTO) 1 % (0-10); HEMATOCRIT 25 % (35-52); HEMOGLOBIN 7.8 G/DL (11.5-16.0); LYMPHOCYTES # (AUTO) 0.7 X 10^3 (1.0-4.0); LYMPHOCYTES % (AUTO) 8 % (12-44); MEAN CORPUSCULAR HEMOGLOBIN 27 PG (25-34); MEAN CORPUSCULAR HGB CONC 31 G/DL (32-36); MEAN CORPUSCULAR VOLUME 87 FL (80-99); MEAN PLATELET VOLUME 10.8 FL (7.4-10.4); MONOCYTES # (AUTO) 0.1 X 10^3 (0.0-1.0); MONOCYTES % (AUTO) 2 % (0-12); NEUTROPHILS # (AUTO) 7.5 X 10^3 (1.8-7.8); NEUTROPHILS % (AUTO) 89 % (42-75); PLATELET COUNT 262 10^3/uL (130-400); RED CELL DISTRIBUTION WIDTH 15.2 % (10.0-14.5); WHITE BLOOD COUNT 8.4 10^3/uL (4.3-11.0)
[2019-12-25] MEDS ORDERED: ONDANSETRON 4 MG/2 ML (SDV) Z0FRAN IVP ONE (20:15)
[2019-12-25 20:30] LABS: ALBUMIN 3.8 GM/DL (3.2-4.5); BILIRUBIN,TOTAL 2.7 MG/DL (0.1-1.0); CALCIUM 8.8 MG/DL (8.5-10.1); CREATININE SERUM 2.69 MG/DL (0.60-1.30); TOTAL PROTEIN 6.9 GM/DL (6.4-8.2)
[2019-12-25] MEDS ORDERED: fentaNYL INJECTION 100 MCG/2 ML AMP IVP ONE ×2 (20:30→21:45)
--- NOTE | 2019-12-25 20:32 | Diagnostic Imaging Report ---
EXAMINATION: Chest radiograph, portable AP view. DATE: 12/25/2019 8:07 PM hours. INDICATION: 89-year-old female, fever and chills. COMPARISON: December 04, 2019. FINDINGS: Stable overall appearance of the cardiomediastinal silhouette. There is no identified pneumothorax. There is no large pleural effusion. There is no identified interval focal airspace consolidation. The left humeral head is superiorly subluxed. IMPRESSION: 1. No identified interval acute cardiopulmonary abnormality. Dictated by: Dictated on workstation # [id number]
[2019-12-25 20:38] LABS: EOSINOPHILS % (MANUAL) 1 %; LYMPHOCYTES % (MANUAL) 10 %; MONOCYTES % (MANUAL) 1 %; NEUTROPHILS % (MANUAL) 88 %; RBC MORPH SEE REFERENCE
[2019-12-25 20:39] LABS: HYPOCHROMASIA MODERATE
[2019-12-25 20:48] LABS: INR 1.1 (0.8-1.4); PROTHROMBIN TIME PATIENT 14.2 SEC (12.2-14.7)
[2019-12-25] MEDS ORDERED: NS IV 1000 ML 1,000 ML IV ONE (21:07)
[2019-12-25 21:12] LABS: BILIRUBIN,URINE NEGATIVE (NEGATIVE); CLARITY,URINE SL CLOUDY; COLOR,URINE YELLOW; GLUCOSE, URINE (UA) NEGATIVE (NEGATIVE); KETONES,URINE NEGATIVE (NEGATIVE); LEUKOCYTE ESTERASE ,URINE 2+ (NEGATIVE); NITRITE,URINE NEGATIVE (NEGATIVE); PROTEIN,URINE 2+ (NEGATIVE)
[2019-12-25] MEDS ORDERED: PROMETHAZINE INJ 25 MG/ML (PHENERGAN) AMP IVP ONE ×2 (21:15→21:45)
[2019-12-25 21:21] LABS: WBC,URINE TNTC /HPF
--- NOTE | 2019-12-25 21:21 | ED General ---
General Chief Complaint: Cough/Cold/Flu Symptoms Stated Complaint: FLU LIKE SYMPTOMS Nursing Triage Note: Pt to RM 7 via [facility] with c/o SOB with exertion and fever of 102F. Pt states she was exposed to flu B over the weekend with grandkids. Pt is 99% O2 on RA on arrival. Nursing Sepsis Screen: No Definite Risk Source of Information: Patient Exam Limitations: No Limitations History of Present Illness Date Seen by Provider: Dec 25, 2019 Time Seen by Provider: 19:35 Initial Comments This 89-year-old woman presents to the emergency room via EMS with fever, generalized weakness, myalgias, and dyspnea. She had a recent exposure to grandchildren with influenza about 2 days ago. She also had a fall over this weekend. She tripped up on her socks and fell backward onto her bottom. She kuhn s not had intermittent generalized back pain since then. She also has a small hematoma on the lateral aspect of the left knee with associated bruising. This is not very tender and she has been ambulatory. She is febrile on presentation. Oxygen saturation is in the upper 90s on room air. She has numerous comorbidities including COPD, kidney failure, chronic anemia, and coronary artery disease. She initially denied nausea or vomiting but started to dry heave after the initial assessment. Allergies and Home Medications Allergies Coded Allergies: codeine (Verified Allergy, Mild, 12/25/19) Home Medications Albuterol Sulfate 1 Puff Puff, 2 PUFF IH Q4H PRN for SHORTNESS OF BREATH, (Reported) 1 PUFF = 90 MCG Alprazolam 0.5 Mg Tablet, 0.5 MG PO TID PRN for ANXIETY, (Reported) Amlodipine Besylate 5 Mg Tablet, 7.5 MG PO DAILY, (Reported) take 1 1/2 of 5mg tab for 7.5mg total Aspirin 81 Mg Tablet.dr, 81 MG PO DAILY, (Reported) Fexofenadine HCl 180 Mg Tablet, 180 MG PO DAILY, (Reported) Gabapentin 100 Mg Capsule, 100 MG PO TID PRN for PAIN-MILD Prescribed by: TAHIR MARTINEZ on 08/20/19 1407 Lidocaine 1 Each Adh..patch, 1 EACH TP DAILY PRN Prescribed by: KANDY SALAZAR on 12/04/19 1809 Losartan Potassium 50 Mg Tablet, 50 MG PO DAILY, (Reported) Montelukast Sodium 10 Mg Tablet, 10 MG PO DAILY, (Reported) Ondansetron 4 Mg Tab.rapdis, 4 MG PO Q4H Prescribed by: KANDY SALAZAR on 12/04/19 180 Pantoprazole Sodium 40 Mg Tablet.dr, 40 MG PO DAILY Prescribed by: TAHIR MARTINEZ on 08/20/19 140 Pravastatin Sodium 20 Mg Tablet, 20 MG PO HS, (Reported) Ranitidine HCl 150 Mg Tablet, 150 MG PO BID, (Reported) Sucralfate 1 Gm Tablet, 1 GM PO ACHS Prescribed by: TAHIR MARTINEZ on 08/20/19 140 Tramadol HCl 50 Mg Tablet, 50 MG PO Q4H PRN for PAIN-MODERATE Prescribed by: KANDY SALAZAR on 12/04/19 180 Patient Home Medication List Home Medication List Reviewed: Yes Review of Systems Review of Systems Constitutional: see HPI EENTM: no symptoms reported Respiratory: see HPI Cardiovascular: no symptoms reported Gastrointestinal: see HPI Genitourinary: no symptoms reported : No Musculoskeletal: see HPI Skin: no symptoms reported Psychiatric/Neurological: No Symptoms Reported Hematologic/Lymphatic: No Symptoms Reported Immunological/Allergic: no symptoms reported Past Ovonqhr-Jbeswq-Lbtgba Hx Past Med/Social Hx: Reviewed Nursing Past Med/Soc Hx Patient Social History Alcohol Use: Denies Use Recreational Drug Use: No Smoking Status: Former Smoker Type Used: Cigarettes Former Smoker, Quit: Mar 08, 1980 2nd Hand Smoke Exposure: No Recent Foreign Travel: No Contact w/Someone Who Travel: No Recent Infectious Disease Expo: No Recent Hopitalizations: No Physical Abuse: No Sexual Abuse: No Mistreated: No Fear: No Immunizations Up To Date Tetanus Booster (TDap): Unknown PED Vaccines UTD: No Date of Pneumonia Vaccine: Dec 21, 2017 Date of Influenza Vaccine: Aug 22, 2019 Seasonal Allergies Seasonal Allergies: No Past Medical History Surgeries: Yes (LAP MIGUEL ANGEL FUNDOPLICATION;EGD'S;BILAT CATARACTS;BILATERAL TKR;CATH-STENT X1) Appendectomy, Bowel Surgery, Cardiac, Coronary Stent, Gallbladder, Joint Replacement, Orthopedic Respiratory: Yes (ASTHMA) Asthma, COPD Currently Using CPAP: No Currently Using BIPAP: No Cardiac: Yes (CARDIAC CATH-STENT X 1; CHF) Chronic Edema/Swelling, Coronary Artery Disease, High Cholesterol, Hypertension Neurological: No Reproductive Disorders: No (HAD 9 CHILDREN) Female Reproductive Disorders: Denies Sexually Transmitted Disease: No HIV/AIDS: No Genitourinary: Yes (CHRONIC RENAL FAILURE/INSUFFICIENCY) Renal Failure Gastrointestinal: Yes (EGD'S-LAST ONE 07/2019; LAP MIGUEL ANGEL FUNDOPLICATION; CHRONIC GASTRITIS;) Gastroesophageal Reflux, Hiatal Hernia, Ulcer Musculoskeletal: Yes (OSTEOARTHRITIS; BILAT TKR; CHRONIC BILAT TORN ROTATOR CUFFS) Degenerate Disk Disease, Arthritis, Chronic Back Pain Endocrine: No Cataract Loss of Vision: Denies Hearing Impairment: Hard of Hearing Cancer: No Psychosocial: No Integumentary: Yes Eczema Blood Disorders: Yes (CHRONIC ANEMIA--HGB IN 8'S NORMALLY) Adverse Reaction/Blood Tranf: No Family Medical History Reviewed Nursing Family Hx Abdominal aortic aneurysm 19 FATHER Aphasia G8 SISTER Arthritis 19 MOTHER Cardiovascular disease 19 MOTHER G8 BROTHER Completed stroke G8 SISTER Deafness or hearing loss 19 MOTHER Dementia 19 MOTHER Gastroenteritis 19 MOTHER Hypertension 19 MOTHER G8 SISTER Myocardial infarction G8 BROTHER Psychosocial problem G8 SISTER Respiratory disorder 19 MOTHER G8 BROTHER Thyroid disease G8 BROTHER No Family History of: AIDS Ed's disease Alcoholism Alzheimer's disease Asthma Cancer of mouth Cataracts Colon cancer Congenital disease Congenital heart disease Coronary thrombosis Cystic fibrosis Diabetes mellitus Drug abuse Dysphasia Fibrocystic disease of breast Glaucoma Headache disorder Hypercholesterolemia Infertility Kidney disease Neoplasm Not obtainable due to adoption Osteoporosis Parkinson's disease Prostate cancer Seizure disorder Severe allergy Tuberculosis Visual disorder AAA, Heart Disease, Cancer, CAD Over 55 Years Old, Psychiatric Problems, Stroke Physical Exam-Suspected Sepsis Physical Exam Vital Signs Vital Signs - First Documented 12/25/19 19:37 Temp 39.2 Pulse 89 Resp 21 B/P (MAP) 153/58 (89) Pulse Ox 99 O2 Delivery Room Air Capillary Refill : Less Than 3 Seconds Blood Pressure Mean: 89 Height, Weight, BMI Height: 5'0" Weight: 160lbs. 0.0oz. [id number]; 31.00 BMI Method:Stated General Appearance: WD/WN, Mild Distress HEENT: PERRL/EOMI, Normal ENT Inspection, Other (mucous membranes somewhat dry) Neck: Normal Inspection Respiratory: Lungs Clear, Normal Breath Sounds, No Accessory Muscle Use, No Respiratory Distress Cardiovascular: Regular Rate, Rhythm, No Edema, No Murmur, Normal Peripheral Pulses Gastrointestinal: Normal Bowel Sounds, Non Tender, Soft Extremity: No Pedal Edema, Other (apparent hematoma on the anterior lateral aspect of the left knee with associated ecchymosis.) Neurologic/Psychiatric: Alert, Oriented x3, No Motor/Sensory Deficits, Normal Mood/Affect, pediatrics physician II-XII Norm as Tested Skin: normal color, warm/dry, ecchymosis Focused Exam Lactate Level 12/25/19 19:43: Lactic Acid Level 1.04 Lactic Acid Level Laboratory Tests Test 12/25/19 19:43 Lactic Acid Level 1.04 MMOL/L (0.50-2.00) Progress/Results/Core Measures Suspected Sepsis Recent Fever Within 48 Hours: No Infection Criteria Present: None New/Unexplained Altered Menta: No Sepsis Screen: No Definite Risk SIRS Temperature: Pulse: 89 Respiratory Rate: 21 Laboratory Tests 12/25/19 19:43: White Blood Count 8.4 Blood Pressure 153 /58 Mean: 89 12/25/19 19:43: Lactic Acid Level 1.04 Laboratory Tests 12/25/19 19:43: Creatinine 2.69H, INR Comment 1.1, Platelet Count 262, Total Bilirubin 2.7H Results/Orders Lab Results Laboratory Tests Test 12/25/19 19:43 12/25/19 20:50 Range/Units White Blood Count 8.4 4.3-11.0 10^3/uL Red Blood Count 2.87 L 4.35-5.85 10^6/uL Hemoglobin 7.8 L 11.5-16.0 G/DL Hematocrit 25 L 35-52 % Mean Corpuscular Volume 87 80-99 FL Mean Corpuscular Hemoglobin 27 25-34 PG Mean Corpuscular Hemoglobin Concent 31 L 32-36 G/DL Red Cell Distribution Width 15.2 H 10.0-14.5 % Platelet Count 262 130-400 10^3/uL Mean Platelet Volume 10.8 H 7.4-10.4 FL Neutrophils (%) (Auto) 89 H 42-75 % Lymphocytes (%) (Auto) 8 L 12-44 % Monocytes (%) (Auto) 2 0-12 % Eosinophils (%) (Auto) 1 0-10 % Basophils (%) (Auto) 0 0-10 % Neutrophils # (Auto) 7.5 1.8-7.8 X 10^3 Lymphocytes # (Auto) 0.7 L 1.0-4.0 X 10^3 Monocytes # (Auto) 0.1 0.0-1.0 X 10^3 Eosinophils # (Auto) 0.0 0.0-0.3 10^3/uL Basophils # (Auto) 0.0 0.0-0.1 10^3/uL Neutrophils % (Manual) 88 % Lymphocytes % (Manual) 10 % Monocytes % (Manual) 1 % Eosinophils % (Manual) 1 % Hypochromasia MODERATE Blood Morphology Comment SEE REFERENCE Prothrombin Time 14.2 12.2-14.7 SEC INR Comment 1.1 0.8-1.4 Activated Partial Thromboplast Time 26 24-35 SEC Sodium Level 134 L 135-145 MMOL/L Potassium Level 6.0 H 3.6-5.0 MMOL/L Chloride Level 108 H 98-107 MMOL/L Carbon Dioxide Level 15 L 21-32 MMOL/L Anion Gap 11 5-14 MMOL/L Blood Urea Nitrogen 58 H 7-18 MG/DL Creatinine 2.69 H 0.60-1.30 MG/DL Estimat Glomerular Filtration Rate 17 BUN/Creatinine Ratio 22 Glucose Level 157 H 70-105 MG/DL Lactic Acid Level 1.04 0.50-2.00 MMOL/L Calcium Level 8.8 8.5-10.1 MG/DL Corrected Calcium 9.0 8.5-10.1 MG/DL Total Bilirubin 2.7 H 0.1-1.0 MG/DL Aspartate Amino Transf (AST/SGOT) 12 5-34 U/L Alanine Aminotransferase (ALT/SGPT) 10 0-55 U/L Alkaline Phosphatase 162 H 40-136 U/L Troponin I < 0.028 <0.028 NG/ML C-Reactive Protein High Sensitivity 17.05 H 0.00-0.50 MG/DL Total Protein 6.9 6.4-8.2 GM/DL Albumin 3.8 3.2-4.5 GM/DL Urine Color YELLOW Urine Clarity SL CLOUDY Urine pH 6.0 5-9 Urine Specific Caspian >=1.030 1.016-1.022 Urine Protein 2+ H NEGATIVE Urine Glucose (UA) NEGATIVE NEGATIVE Urine Ketones NEGATIVE NEGATIVE Urine Nitrite NEGATIVE NEGATIVE Urine Bilirubin NEGATIVE NEGATIVE Urine Urobilinogen 1.0 < = 1.0 MG/DL Urine Leukocyte Esterase 2+ H NEGATIVE Urine RBC (Auto) 1+ H NEGATIVE Urine RBC 2-5 H /HPF Urine WBC TNTC H /HPF Urine Crystals NONE /LPF Urine Bacteria LARGE H /HPF Urine Casts NONE /LPF Urine Mucus NEGATIVE /LPF Urine Culture Indicated CULTURE PENDING Micro Results Microbiology 12/25/19 Influenza Types A,B Antigen (NAM) - Final, Complete My Orders Orders - KAYCEE TELLO MD Cbc With Automated Diff (12/25/19 19:53) Hs C Reactive Protein (12/25/19 19:53) Influenza A And B Antigens (12/25/19 19:53) Chest 1 View, Ap/Pa Only (12/25/19 19:53) Ed Iv/Invasive Line Start (12/25/19 19:53) Manual Differential (12/25/19 19:43) Ondansetron Injection (Zofran Injectio (12/25/19 20:15) Comprehensive Metabolic Panel (12/25/19 20:12) Blood Culture (12/25/19 20:12) Sputum Culture (12/25/19 20:12) Urinalysis (12/25/19 20:12) Urine Culture (12/25/19 20:12) Protime With Inr (12/25/19 20:12) Partial Thromboplastin Time (12/25/19 20:12) Vital Signs Adult Sepsis Patie Q15M (12/25/19 20:12) O2 (12/25/19 20:12) Remove Rings In Anticipation O (12/25/19 20:12) Lactic Acid Analyzer (12/25/19 20:12) Fentanyl Injection (Sublimaze Injection (12/25/19 20:30) Troponin I (12/25/19 20:27) Ct Chest/Abdomen/Pelvis Wo (12/25/19 20:44) Ekg Tracing (12/25/19 21:01) Ns Iv 1000 Ml (Sodium Chloride 0.9%) (12/25/19 21:07) Promethazine Injection (Phenergan Injec (12/25/19 21:15) Ceftriaxone For Iv Use (Rocephin For I (12/25/19 21:30) Famotidine Injection (Pepcid Injection) (12/25/19 21:45) Promethazine Injection (Phenergan Injec (12/25/19 21:45) Fentanyl Injection (Sublimaze Injection (12/25/19 21:45) Acetaminophen Tablet (Tylenol Tablet) (12/25/19 21:45) Medications Given in ED Current Medications Medications Dose Ordered Sig/Jeremiah Route Start Time Stop Time Status Last Admin Dose Admin Acetaminophen 1,000 mg ONCE ONCE PO 12/25/19 21:45 12/25/19 21:46 DC 12/25/19 21:51 1,000 MG Ceftriaxone Sodium 1000 mg/ Sterile Water 10 ml @ 200 mls/hr ONCE ONCE IV 12/25/19 21:30 12/25/19 21:32 DC 12/25/19 21:44 200 MLS/HR Famotidine 20 mg ONCE ONCE IVP 12/25/19 21:45 12/25/19 21:46 DC 12/25/19 21:47 20 MG Fentanyl Citrate 50 mcg ONCE ONCE IVP 12/25/19 20:30 12/25/19 20:31 DC 12/25/19 20:32 50 MCG Fentanyl Citrate 50 mcg ONCE ONCE IVP 12/25/19 21:45 12/25/19 21:46 DC 12/25/19 21:48 50 MCG Ondansetron HCl 8 mg ONCE ONCE IVP 12/25/19 20:15 12/25/19 20:16 DC 12/25/19 20:09 8 MG Promethazine HCl 6.25 mg ONCE ONCE IVP 12/25/19 21:15 12/25/19 21:16 DC 12/25/19 21:13 6.25 MG Promethazine HCl 6.25 mg ONCE ONCE IVP 12/25/19 21:45 12/25/19 21:46 DC 12/25/19 21:46 6.25 MG Sodium Chloride 1,000 ml @ 0 mls/hr Q0M ONCE IV 12/25/19 21:07 12/25/19 21:09 DC 12/25/19 21:13 0 MLS/HR Vital Signs/I&O 12/25/19 12/25/19 19:37 19:49 Temp 39.2 Pulse 89 Resp 21 B/P (MAP) 153/58 (89) Pulse Ox 99 O2 Delivery Room Air Room Air Capillary Refill : Less Than 3 Seconds Blood Pressure Mean: 89 Progress Note #1: Time: 21:22 Progress Note Septic workup is being pursued. Patient developed increasing back pain and chest pain. EKG and troponin were obtained. No evidence of ischemia was seen. Chest x-ray is unremarkable. Patient received 1 L of IV fluid per EMS. Crea tinine is notably elevated from baseline. A second liter of IV fluid is being infused. Source of infection has not yet been identified. Influenza screen was negative. Patient developed dry heaving. She received Zofran 8 mg but still had some dry heaving. Phenergan is now being administered. Fentanyl was given for her generalized pain. Due to patient's pain in multiple areas with a recent fall, CT of the chest, abdomen and pelvis is being obtained. Progress Note #2: Time: 22:00 Progress Note Patient is being admitted for sepsis, urinary tract infection, acute renal failure, etc. We discussed CODE STATUS and she wishes to have a DO NOT RESUSCITATE status. She has required multiple doses of antiemetics and pain medication to control her symptoms. While she does have acute renal failure, I believe this is due to hydration status from poor intake rather than end organ failure from severe sepsis. This is evidenced by her normal lactic acid. Case has been reviewed with Dr. Martinez. We both agree she should be admitted to the ICU for tonight due to the level of care she will likely require for symptom management and monitoring of her sepsis. ECG Initial ECG Impression Date: Dec 25, 2019 Initial ECG Impression Time: 20:43 Initial ECG Rate: 86 Initial ECG Rhythm: Normal Sinus Initial ECG Intervals: Normal Comment Normal sinus rhythm with no ST elevation or depression. No abnormal intervals or axis deviation. Diagnostic Imaging Diagonstic Imaging: Xray Plain Films/CT/US/NM/MRI: chest Comments Chest x-ray viewed by me and report reviewed. See report below: NAME: MINDY FISHER [facility] REC#: [id number] PT STATUS: REG ER : 1930 PHYSICIAN: KAYCEE TELLO MD ADMIT DATE: 12/25/19/ER Signed Date of Exam:12/25/19 CHEST 1 VIEW, AP/PA ONLY EXAMINATION: Chest radiograph, portable AP view. DATE: 12/25/2019 8:07 PM hours. INDICATION: 89-year-old female, fever and chills. COMPARISON: December 04, 2019. FINDINGS: Stable overall appearance of the cardiomediastinal silhouette. There is no identified pneumothorax. There is no large pleural effusion. There is no identified interval focal airspace consolidation. The left humeral head is superiorly subluxed. IMPRESSION: 1. No identified interval acute cardiopulmonary abnormality. Dictated by: Dictated on workstation # [id number] Dict: 12/25/192017 Trans: 12/25/192036 [facility] [id number] Interpreted by: DOC SOLANO MD Electronically signed by: DOC SOLANO MD 12/25/192036 Diagonstic Imaging: CT Plain Films/CT/US/NM/MRI: chest, abdomen, pelvis Comments CT chest, abdomen and pelvis viewed by me and report reviewed. See report below: NAME: MINDY FISHER [facility] REC#: [id number] PT STATUS: REG ER : 1930 PHYSICIAN: KAYCEE TELLO MD ADMIT DATE: 12/25/19/ER Signed Date of Exam:12/25/19 CT CHEST/ABDOMEN/PELVIS WO PROCEDURE: CT chest, abdomen, and pelvis without contrast. TECHNIQUE: Multiple contiguous axial images were obtained through the chest, abdomen, and pelvis without the use of intravenous contrast. Auto Exposure Controls were utilized during the CT exam to meet ALARA standards for radiation dose reduction. DATE: December 25, 2019. COMPARISON: Chest radiograph December 25, 2019. CT chest June 06, 2018. CT abdomen and pelvis May 18, 2015. INDICATION: 89-year-old female, fever, chills, nausea. Shortness of breath. FINDINGS: There are limitations for evaluation of the abdominal organs, neoplastic processes, abscess, and limited evaluation of the vasculature relating to the lack of intravenous contrast. There are mild upper lobe predominant changes of centrilobular emphysema. There is a right lower lobe pulmonary nodule on axial image 36 which measures up to 2.1 cm in size. This is immediately inferior to the right inferior pulmonary vein. This appears present on June 06, 2018 and previously measured up to approximately 2.0 cm in size. This also appears unchanged correlating with CT abdomen and pelvis exam of May 18, 2015. This could potentially relate to a benign nodule versus abnormal protuberance of the right inferior pulmonary vein. There is no identified lung mass. There is mild atelectasis and/or scarring in the right and left lower lobes. There is no additional focal airspace consolidation. There is no pneumothorax. There is no pleural effusion. The central airways are patent. There are coronary artery calcifications and additional areas of atherosclerotic disease. The heart is not enlarged. There is no pericardial effusion. There is no identified abnormally enlarged noncalcified mediastinal or axillary lymph node meeting CT size criteria for adenopathy. The liver is normal in size and contour. The gallbladder is not seen and may be absent or contracted. There is no biliary ductal dilation. The main pancreatic duct is not grossly dilated. Limited noncontrast evaluation of the pancreatic parenchyma is unremarkable. The spleen is normal in size. The adrenal glands are unremarkable. There is atrophy of the upper aspect of the left kidney. The lower aspect of the left kidney is not particularly atrophic. 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 There is a stone in the region of the left renal pelvis. It is uncertain if this is associated with the upper pole or lower pole moiety. There is no hydronephrosis. The ureters are not abnormally dilated. The urinary bladder is unremarkable in appearance. There is no identified right sided renal stone or ureteral stone. There is no right hydronephrosis. There is diverticulosis without evidence of acute diverticulitis. There is no evidence to suggest acute appendicitis. There is no free intraperitoneal air. There is no drainable fluid collection. There is no free pelvic fluid. There are atherosclerotic calcifications. There is no identified abnormally enlarged lymph node in the abdomen or pelvis which meets CT size criteria for adenopathy. There is chondrocalcinosis. There are multilevel degenerative changes of the spine. There is scoliosis. There is advanced bilateral glenohumeral arthritis with bone remodeling. There is grade 1-2 anterolisthesis of L4 on L5 relating to facet arthropathy. There is a benign hemangioma of T9. There is no concerning focal bone lesion. IMPRESSION: CT chest, abdomen, and pelvis. 1. Mild upper lobe predominant changes of centrilobular emphysema. 2. No identified acute cardiopulmonary abnormality. 3. 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 There is a stone in the region of the ureteropelvic junction of uncertain association with the upper pole or lower pole moiety. There is no hydronephrosis. There is no dilation of the ureters. This is unchanged from May 18, 2015. 4. No identified acute abnormality in the abdomen or pelvis. Dictated by: Dictated on workstation # [id number] Dict: 12/25/192109 Trans: 12/25/192133 [facility] [id number] Interpreted by: DOC SOLANO MD Electronically signed by: DOC SOLANO MD 12/25/192133 Departure Communication (Admissions) Time/Spoke to Admitting Phy: 21:42 Dr. Martinez Impression Primary Impression: Sepsis Qualified Codes: A41.9 - Sepsis, unspecified organism Additional Impressions: Urinary tract infection Qualified Codes: N39.0 - Urinary tract infection, site not specified Acute kidney failure Qualified Codes: N17.9 - Acute kidney failure, unspecified Nausea and vomiting Qualified Codes: R11.2 - Nausea with vomiting, unspecified Generalized pain Hyperkalemia Chronic anemia Disposition: ADMITTED INPATIENT Condition: Improved Admissions Decision to Admit Reason: Admit from ER (General) Decision to Admit/Date: Dec 25, 2019 Time/Decision to Admit Time: 20:30 Departure-Patient Inst. Referrals: TAHIR MARTINEZ DO (PCP) Primary Care Physician KAYCEE TELLO MD Dec 25, 2019 21:21
[2019-12-25 21:22] LABS: BACTERIA,URINE LARGE /HPF
--- NOTE | 2019-12-25 21:29 | Diagnostic Imaging Report ---
PROCEDURE: CT chest, abdomen, and pelvis without contrast. TECHNIQUE: Multiple contiguous axial images were obtained through the chest, abdomen, and pelvis without the use of intravenous contrast. Auto Exposure Controls were utilized during the CT exam to meet ALARA standards for radiation dose reduction. DATE: December 25, 2019. COMPARISON: Chest radiograph December 25, 2019. CT chest June 06, 2018. CT abdomen and pelvis May 18, 2015. INDICATION: 89-year-old female, fever, chills, nausea. Shortness of breath. FINDINGS: There are limitations for evaluation of the abdominal organs, neoplastic processes, abscess, and limited evaluation of the vasculature relating to the lack of intravenous contrast. There are mild upper lobe predominant changes of centrilobular emphysema. There is a right lower lobe pulmonary nodule on axial image 36 which measures up to 2.1 cm in size. This is immediately inferior to the right inferior pulmonary vein. This appears present on June 06, 2018 and previously measured up to approximately 2.0 cm in size. This also appears unchanged correlating with CT abdomen and pelvis exam of May 18, 2015. This could potentially relate to a benign nodule versus abnormal protuberance of the right inferior pulmonary vein. There is no identified lung mass. There is mild atelectasis and/or scarring in the right and left lower lobes. There is no additional focal airspace consolidation. There is no pneumothorax. There is no pleural effusion. The central airways are patent. There are coronary artery calcifications and additional areas of atherosclerotic disease. The heart is not enlarged. There is no pericardial effusion. There is no identified abnormally enlarged noncalcified mediastinal or axillary lymph node meeting CT size criteria for adenopathy. The liver is normal in size and contour. The gallbladder is not seen and may be absent or contracted. There is no biliary ductal dilation. The main pancreatic duct is not grossly dilated. Limited noncontrast evaluation of the pancreatic parenchyma is unremarkable. The spleen is normal in size. The adrenal glands are unremarkable. There is atrophy of the upper aspect of the left kidney. The lower aspect of the left kidney is not particularly atrophic. 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 There is a stone in the region of the left renal pelvis. It is uncertain if this is associated with the upper pole or lower pole moiety. There is no hydronephrosis. The ureters are not abnormally dilated. The urinary bladder is unremarkable in appearance. There is no identified right sided renal stone or ureteral stone. There is no right hydronephrosis. There is diverticulosis without evidence of acute diverticulitis. There is no evidence to suggest acute appendicitis. There is no free intraperitoneal air. There is no drainable fluid collection. There is no free pelvic fluid. There are atherosclerotic calcifications. There is no identified abnormally enlarged lymph node in the abdomen or pelvis which meets CT size criteria for adenopathy. There is chondrocalcinosis. There are multilevel degenerative changes of the spine. There is scoliosis. There is advanced bilateral glenohumeral arthritis with bone remodeling. There is grade 1-2 anterolisthesis of L4 on L5 relating to facet arthropathy. There is a benign hemangioma of T9. There is no concerning focal bone lesion. IMPRESSION: CT chest, abdomen, and pelvis. 1. Mild upper lobe predominant changes of centrilobular emphysema. 2. No identified acute cardiopulmonary abnormality. 3. 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 There is a stone in the region of the ureteropelvic junction of uncertain association with the upper pole or lower pole moiety. There is no hydronephrosis. There is no dilation of the ureters. This is unchanged from May 18, 2015. 4. No identified acute abnormality in the abdomen or pelvis. Dictated by: Dictated on workstation # [id number]
[2019-12-25] MEDS ORDERED: cefTRIAXone FOR IV USE 1,000 MG in WATER (STERILE) FOR INJECTION 10 ML IV ONE (21:30)
[2019-12-25] MEDS ORDERED: ACETAMINOPHEN 500 MG TAB (TYLENOL) PO ONE (21:45)
[2019-12-25] MEDS ORDERED: FAMOTIDINE 20MG/2ML IV (PEPCID) IVP ONE (21:45)
[2019-12-25 22:33] VITALS: BP 118/45
[2019-12-25 22:45] VITALS: BP 135/51
[2019-12-25 23:00] VITALS: BP 143/56
[2019-12-25 23:15] VITALS: BP 151/65
[2019-12-25] MEDS: NS IV 1000 ML 1,000 ML IV SCH (23:22)
[2019-12-25 23:30] VITALS: BP 116/37
[2019-12-25 23:45] VITALS: BP 105/44
[2019-12-26] VITALS (12 sets, daily range): BP systolic 97–166; BP diastolic 40–65
[2019-12-26] MEDS ORDERED: RT-ALBUTEROL SULF 2.5 MG/3 ML PRE-MIX VIAL INH PRN (00:15)
[2019-12-26] MEDS ORDERED: PANTOPRAZOLE 40 MG (PROTONIX) TAB PO ONE ×2 (01:41→01:45)
[2019-12-26] MEDS ORDERED: SUCRALFATE 1 GM (CARAFATE) TAB PO ONE (01:45)
[2019-12-26] MEDS: RT-ALBUTEROL SULF 2.5 MG/3 ML PRE-MIX VIAL INH SCH ×4 (02:53→21:05)
[2019-12-26 03:58] LABS: BASOPHILS % (AUTO) 0 % (0-10); EOSINOPHILS % (AUTO) 0 % (0-10); HEMATOCRIT 23 % (35-52); LYMPHOCYTES # (AUTO) 1.9 X 10^3 (1.0-4.0); LYMPHOCYTES % (AUTO) 11 % (12-44); MEAN CORPUSCULAR HEMOGLOBIN 27 PG (25-34); MEAN CORPUSCULAR HGB CONC 31 G/DL (32-36); MEAN CORPUSCULAR VOLUME 87 FL (80-99); MEAN PLATELET VOLUME 10.8 FL (7.4-10.4); MONOCYTES # (AUTO) 1.9 X 10^3 (0.0-1.0); MONOCYTES % (AUTO) 11 % (0-12); NEUTROPHILS % (AUTO) 77 % (42-75); PLATELET COUNT 240 10^3/uL (130-400); RED CELL DISTRIBUTION WIDTH 15.1 % (10.0-14.5); WHITE BLOOD COUNT 16.8 10^3/uL (4.3-11.0)
[2019-12-26] MEDS: ONDANSETRON 4 MG/2 ML (SDV) Z0FRAN IV PRN ×4 (04:02→21:58)
[2019-12-26] MEDS: fentaNYL INJECTION 100 MCG/2 ML AMP IV PRN ×8 (04:03→23:18)
[2019-12-26 04:26] LABS: ALBUMIN 3.4 GM/DL (3.2-4.5); BILIRUBIN,TOTAL 2.3 MG/DL (0.1-1.0); CALCIUM 8.2 MG/DL (8.5-10.1); CREATININE SERUM 2.39 MG/DL (0.60-1.30); PHOSPHORUS 3.3 MG/DL (2.3-4.7); POTASSIUM 5.4 MMOL/L (3.6-5.0); TOTAL PROTEIN 6.3 GM/DL (6.4-8.2)
[2019-12-26 04:37] LABS: LYMPHOCYTES % (MANUAL) 13 %; MONOCYTES % (MANUAL) 9 %; NEUTROPHILS % (MANUAL) 78 %
--- NOTE | 2019-12-26 04:54 | Pulmonary Consultation ---
History of Present Illness History of Present Illness Date Seen by Provider: Dec 26, 2019 Time Seen by Provider: 04:49 Date of Admission History of Present Illness Allergies and Home Medications Allergies Coded Allergies: codeine (Verified Allergy, Mild, 12/25/19) Home Medications Albuterol Sulfate 1 Puff Puff, 2 PUFF IH Q4H PRN for SHORTNESS OF BREATH, (Reported) 1 PUFF = 90 MCG Alprazolam 0.5 Mg Tablet, 0.5 MG PO TID PRN for ANXIETY, (Reported) Amlodipine Besylate 5 Mg Tablet, 7.5 MG PO DAILY, (Reported) take 1 1/2 of 5mg tab for 7.5mg total Aspirin 81 Mg Tablet.dr, 81 MG PO DAILY, (Reported) Fexofenadine HCl 180 Mg Tablet, 180 MG PO DAILY, (Reported) Gabapentin 100 Mg Capsule, 100 MG PO TID PRN for PAIN-MILD Prescribed by: TAHIR MARTINEZ on 08/20/19 140 Lidocaine 1 Each Adh..patch, 1 EACH TP DAILY PRN Prescribed by: KANDY SALAZAR on 12/04/191808 Losartan Potassium 50 Mg Tablet, 50 MG PO DAILY, (Reported) Montelukast Sodium 10 Mg Tablet, 10 MG PO DAILY, (Reported) Ondansetron 4 Mg Tab.rapdis, 4 MG PO Q4H Prescribed by: KANDY SALAZAR on 12/04/191808 Pantoprazole Sodium 40 Mg Tablet.dr, 40 MG PO DAILY Prescribed by: TAHIR MARTINEZ on 08/20/19 140 Pravastatin Sodium 20 Mg Tablet, 20 MG PO HS, (Reported) Ranitidine HCl 150 Mg Tablet, 150 MG PO BID, (Reported) Sucralfate 1 Gm Tablet, 1 GM PO ACHS Prescribed by: TAHIR MARTINEZ on 08/20/19 140 Tramadol HCl 50 Mg Tablet, 50 MG PO Q4H PRN for PAIN-MODERATE Prescribed by: KANDY SALAZAR on 12/04/191808 Past Dikylrj-Caqcif-Xdppfh Hx Past Med/Social Hx: Reviewed Nursing Past Med/Soc Hx Patient Social History Alcohol Use: Denies Use Recreational Drug Use: No Smoking Status: Former Smoker Type Used: Cigarettes Former Smoker, Quit: Mar 08, 1980 2nd Hand Smoke Exposure: No Recent Foreign Travel: No Contact w/Someone Who Travel: No Recent Infectious Disease Expo: No Recent Hopitalizations: No Physical Abuse: No Sexual Abuse: No Mistreated: No Fear: No Immunizations Up To Date Tetanus Booster (TDap): Unknown PED Vaccines UTD: No Date of Pneumonia Vaccine: Apr 22, 2019 Date of Influenza Vaccine: Aug 22, 2019 Seasonal Allergies Seasonal Allergies: No Past Medical History Surgeries: Yes (LAP MIGUEL ANGEL FUNDOPLICATION;EGD'S;BILAT CATARACTS;BILATERAL TKR;CATH-STENT X1) Appendectomy, Bowel Surgery, Cardiac, Coronary Stent, Gallbladder, Joint Replacement, Orthopedic Respiratory: Yes (ASTHMA) Asthma, COPD Currently Using CPAP: No Currently Using BIPAP: No Cardiac: Yes (CARDIAC CATH-STENT X 1; CHF) Chronic Edema/Swelling, Coronary Artery Disease, High Cholesterol, Hypertension Neurological: No Reproductive Disorders: No (HAD 9 CHILDREN) Female Reproductive Disorders: Denies Sexually Transmitted Disease: No HIV/AIDS: No Genitourinary: Yes (CHRONIC RENAL FAILURE/INSUFFICIENCY) Renal Failure Gastrointestinal: Yes (EGD'S-LAST ONE 07/2019; LAP MIGUEL ANGEL FUNDOPLICATION; CHRONIC GASTRITIS;) Gastroesophageal Reflux, Hiatal Hernia, Ulcer Musculoskeletal: Yes (OSTEOARTHRITIS; BILAT TKR; CHRONIC BILAT TORN ROTATOR CUFFS) Degenerate Disk Disease, Arthritis, Chronic Back Pain Endocrine: No Cataract Loss of Vision: Denies Hearing Impairment: Hard of Hearing Cancer: No Psychosocial: No Integumentary: Yes Eczema Blood Disorders: Yes (CHRONIC ANEMIA--HGB IN 8'S NORMALLY) Adverse Reaction/Blood Tranf: No Family Medical History Reviewed Nursing Family Hx Abdominal aortic aneurysm 19 FATHER Aphasia G8 SISTER Arthritis 19 MOTHER Cardiovascular disease 19 MOTHER G8 BROTHER Completed stroke G8 SISTER Deafness or hearing loss 19 MOTHER Dementia 19 MOTHER Gastroenteritis 19 MOTHER Hypertension 19 MOTHER G8 SISTER Myocardial infarction G8 BROTHER Psychosocial problem G8 SISTER Respiratory disorder 19 MOTHER G8 BROTHER Thyroid disease G8 BROTHER No Family History of: AIDS Nowata's disease Alcoholism Alzheimer's disease Asthma Cancer of mouth Cataracts Colon cancer Congenital disease Congenital heart disease Coronary thrombosis Cystic fibrosis Diabetes mellitus Drug abuse Dysphasia Fibrocystic disease of breast Glaucoma Headache disorder Hypercholesterolemia Infertility Kidney disease Neoplasm Not obtainable due to adoption Osteoporosis Parkinson's disease Prostate cancer Seizure disorder Severe allergy Tuberculosis Visual disorder AAA, Heart Disease, Cancer, CAD Over 55 Years Old, Psychiatric Problems, Stroke Review of Systems Time Seen by Provider: 04:49 Sepsis Event Evaluation Height, Weight, BMI Height: 5'0" Weight: 160lbs. 0.0oz. 72.315580fk; 32.89 BMI Method:Stated Exam Exam Vital Signs Date Time Temp Pulse Resp B/P (MAP) Pulse Ox O2 Delivery O2 Flow Rate FiO2 12/26/19 03:46 37.0 12/26/19 02:53 98 NIV CPAP 2.00 12/26/19 01:15 37.6 12/26/19 01:00 90 12/26/19 00:30 95 NIV CPAP 2.00 12/26/19 00:30 NIV CPAP 6.00 12/26/19 00:07 37.7 101 98 21 12/26/19 00:00 94 NIV CPAP 12/26/19 00:00 92 21 102/41 (61) 94 Room Air 12/25/19 23:45 94 21 105/44 (64) 93 Room Air 12/25/19 23:30 100 18 116/37 (63) 93 Room Air 12/25/19 23:21 37.7 12/25/19 23:15 101 19 151/65 (93) 98 Room Air 12/25/19 23:00 Nasal Cannula 2.00 12/25/19 23:00 102 15 143/56 (85) 97 Room Air 12/25/19 22:45 98 26 135/51 (79) 93 Room Air 12/25/19 22:33 38.3 101 16 118/45 (69) 92 Room Air 12/25/19 22:30 100 12/25/19 22:30 94 Nasal Cannula 2.00 12/25/19 22:18 38.9 82 20 148/67 99 Room Air 12/25/19 22:05 38.9 82 20 148/67 99 Room Air 12/25/19 19:49 Room Air 12/25/19 19:37 39.2 89 21 153/58 (89) 99 Room Air I & O 12/26/19 07:00 Intake Total 185 ml Output Total 450 ml Balance -265 ml Height & Weight Height: 5'0" Weight: 160lbs. 0.0oz. 72.287532hb; 32.89 BMI Method:Stated General Appearance: WD/WN, Mild Distress HEENT: PERRL/EOMI, Normal ENT Inspection, Other (mucous membranes somewhat dry) Neck: Normal Inspection Respiratory: Lungs Clear, Normal Breath Sounds, No Accessory Muscle Use, No Respiratory Distress Cardiovascular: Regular Rate, Rhythm, No Edema, No Murmur, Normal Peripheral Pulses Capillary Refill: Less Than 3 Seconds Extremity: No Pedal Edema, Other (apparent hematoma on the anterior lateral aspect of the left knee with associated ecchymosis.) Neurologic/Psychiatric: Alert, Oriented x3, No Motor/Sensory Deficits, Normal 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
[2019-12-26] MEDS ORDERED: SOD POLYSTERENE 15 GM/60 ML (KAYEXALATE) UNIT DOSE PO ONE (05:00)
[2019-12-26] MEDS: POTASSIUM CL 10MEQ/50ML IVPB 50 ML IV SCH (06:04)
[2019-12-26] MEDS: MAGNESIUM 1 GM/100 ML IVPB 100 ML IV SCH (06:04)
[2019-12-26] MEDS: KCL 20 MEQ TAB (K-DUR) PO SCH (06:05)
[2019-12-26] MEDS: SUCRALFATE 1 GM (CARAFATE) TAB PO SCH ×4 (06:06→20:12)
[2019-12-26] MEDS: ACETAMINOPHEN 325 MG TABLET PO PRN ×2 (06:06→21:52)
[2019-12-26] MEDS: NS IV 1000 ML 1,000 ML IV SCH ×4 (06:07→20:13)
--- NOTE | 2019-12-26 08:41 | Consultation-Cardiology ---
HPI-Cardiology Cardiology Consultation Date of Consultation 12/26/19 Date of Admission Time Seen by Provider: 08:36 Indication: Chest pain HPI 89-year-old lady with history of coronary artery disease, admitted with sepsis, urinary tract infection, has been having fever and generalized weakness and generalized body ache. Reporting increasing dyspnea on exertion, no pedal edema. No palpitation. No syncope. Sustained a fall earlier last week resulted in a small hematoma on the left knee, started on antibiotic, EKG did not show acute abnormality Home Medications & Allergies Allergies: Coded Allergies: codeine (Verified Allergy, Mild, 12/25/19) Home Medication List Reviewed: Yes WAQ-Uguahk-Zufjsy Hx Patient Social History Marital Status: Employed/Student: retired Alcohol Use: Denies Use Recreational Drug Use: No Smoking Status: Former Smoker Type Used: Cigarettes 2nd Hand Smoke Exposure: No Recent Foreign Travel: No Recent Infectious Disease Expo: No Recent Hopitalizations: No Immunizations Up To Date Tetanus Booster (TDap): Unknown Date of Pneumonia Vaccine: Apr 22, 2019 Date of Influenza Vaccine: Aug 22, 2019 Past Medical History discussed below Family Medical History Significant Family History: AAA, Heart Disease, Cancer, CAD Over 55 Years Old, Psychiatric Problems, Stroke Family History: Abdominal aortic aneurysm 19 FATHER Aphasia G8 SISTER Arthritis 19 MOTHER Cardiovascular disease 19 MOTHER G8 BROTHER Completed stroke G8 SISTER Deafness or hearing loss 19 MOTHER Dementia 19 MOTHER Gastroenteritis 19 MOTHER Hypertension 19 MOTHER G8 SISTER Myocardial infarction G8 BROTHER Psychosocial problem G8 SISTER Respiratory disorder 19 MOTHER G8 BROTHER Thyroid disease G8 BROTHER No Family History of: AIDS Ed's disease Alcoholism Alzheimer's disease Asthma Cancer of mouth Cataracts Colon cancer Congenital disease Congenital heart disease Coronary thrombosis Cystic fibrosis Diabetes mellitus Drug abuse Dysphasia Fibrocystic disease of breast Glaucoma Headache disorder Hypercholesterolemia Infertility Kidney disease Neoplasm Not obtainable due to adoption Osteoporosis Parkinson's disease Prostate cancer Seizure disorder Severe allergy Tuberculosis Visual disorder Review of Systems-General Review of Systems Constitutional: see HPI, fever, malaise, weakness EENTM: see HPI, no symptoms reported Respiratory: see HPI; No cough; dyspnea on exertion; No hemoptysis, No orthopnea, No phlegm, No short of breath, No stridor, No wheezing, No other Cardiovascular: see HPI, chest pain; No edema, No Hx of Intervention, No palpitations, No syncope, No vascular heart diseas, No other Gastrointestinal: no symptoms reported, see HPI Genitourinary: no symptoms reported, see HPI : No Musculoskeletal: see HPI, back pain, joint pain, muscle stiffness, muscle weakness Skin: no symptoms reported Psychiatric/Neurological: No Symptoms Reported, See HPI Reviewed Test Results Reviewed Test Results Lab Laboratory Tests Test 12/25/19 19:43 12/25/19 20:50 12/26/19 03:30 Range/Units White Blood Count 8.4 16.8 H 4.3-11.0 10^3/uL Red Blood Count 2.87 L 2.62 L 4.35-5.85 10^6/uL Hemoglobin 7.8 L 7.0 L 11.5-16.0 G/DL Hematocrit 25 L 23 L 35-52 % Mean Corpuscular Volume 87 87 80-99 FL Mean Corpuscular Hemoglobin 27 27 25-34 PG Mean Corpuscular Hemoglobin Concent 31 L 31 L 32-36 G/DL Red Cell Distribution Width 15.2 H 15.1 H 10.0-14.5 % Platelet Count 262 240 130-400 10^3/uL Mean Platelet Volume 10.8 H 10.8 H 7.4-10.4 FL Neutrophils (%) (Auto) 89 H 77 H 42-75 % Lymphocytes (%) (Auto) 8 L 11 L 12-44 % Monocytes (%) (Auto) 2 11 0-12 % Eosinophils (%) (Auto) 1 0 0-10 % Basophils (%) (Auto) 0 0 0-10 % Neutrophils # (Auto) 7.5 13.0 H 1.8-7.8 X 10^3 Lymphocytes # (Auto) 0.7 L 1.9 1.0-4.0 X 10^3 Monocytes # (Auto) 0.1 1.9 H 0.0-1.0 X 10^3 Eosinophils # (Auto) 0.0 0.0 0.0-0.3 10^3/uL Basophils # (Auto) 0.0 0.0 0.0-0.1 10^3/uL Neutrophils % (Manual) 88 78 % Lymphocytes % (Manual) 10 13 % Monocytes % (Manual) 1 9 % Eosinophils % (Manual) 1 % Hypochromasia MODERATE Blood Morphology Comment SEE REFERENCE Prothrombin Time 14.2 12.2-14.7 SEC INR Comment 1.1 0.8-1.4 Activated Partial Thromboplast Time 26 24-35 SEC Sodium Level 134 L 137 135-145 MMOL/L Potassium Level 6.0 H 5.4 H 3.6-5.0 MMOL/L Chloride Level 108 H 114 H 98-107 MMOL/L Carbon Dioxide Level 15 L 13 L 21-32 MMOL/L Anion Gap 11 10 5-14 MMOL/L Blood Urea Nitrogen 58 H 54 H 7-18 MG/DL Creatinine 2.69 H 2.39 H 0.60-1.30 MG/DL Estimat Glomerular Filtration Rate 17 19 BUN/Creatinine Ratio 22 23 Glucose Level 157 H 178 H 70-105 MG/DL Lactic Acid Level 1.04 0.50-2.00 MMOL/L Calcium Level 8.8 8.2 L 8.5-10.1 MG/DL Corrected Calcium 9.0 8.7 8.5-10.1 MG/DL Total Bilirubin 2.7 H 2.3 H 0.1-1.0 MG/DL Aspartate Amino Transf (AST/SGOT) 12 12 5-34 U/L Alanine Aminotransferase (ALT/SGPT) 10 9 0-55 U/L Alkaline Phosphatase 162 H 138 H 40-136 U/L Troponin I < 0.028 <0.028 NG/ML C-Reactive Protein High Sensitivity 17.05 H 0.00-0.50 MG/DL Total Protein 6.9 6.3 L 6.4-8.2 GM/DL Albumin 3.8 3.4 3.2-4.5 GM/DL Procalcitonin 25.73 H <0.10 NG/ML Urine Color YELLOW Urine Clarity SL CLOUDY Urine pH 6.0 5-9 Urine Specific [place] >=1.030 1.016-1.022 Urine Protein 2+ H NEGATIVE Urine Glucose (UA) NEGATIVE NEGATIVE Urine Ketones NEGATIVE NEGATIVE Urine Nitrite NEGATIVE NEGATIVE Urine Bilirubin NEGATIVE NEGATIVE Urine Urobilinogen 1.0 < = 1.0 MG/DL Urine Leukocyte Esterase 2+ H NEGATIVE Urine RBC (Auto) 1+ H NEGATIVE Urine RBC 2-5 H /HPF Urine WBC TNTC H /HPF Urine Crystals NONE /LPF Urine Bacteria LARGE H /HPF Urine Casts NONE /LPF Urine Mucus NEGATIVE /LPF Urine Culture Indicated CULTURE PENDING Phosphorus Level 3.3 2.3-4.7 MG/DL Magnesium Level 2.0 1.6-2.4 MG/DL Physical Exam Physical Exam Vital Signs Vital Signs - First Documented 12/25/19 12/26/19 19:37 00:07 Temp 39.2 Pulse 89 Resp 21 B/P (MAP) 153/58 (89) Pulse Ox 99 O2 Delivery Room Air FiO2 21 Capillary Refill : Less Than 3 Seconds Height, Weight, BMI Height: 5'0" Weight: 160lbs. 0.0oz. 72.736025qs; 32.89 BMI Method:Stated General Appearance: WD/WN, Mild Distress HEENT: PERRL/EOMI, Normal ENT Inspection, Other (mucous membranes somewhat dry) Neck: Normal Inspection Respiratory: Lungs Clear, Normal Breath Sounds, No Accessory Muscle Use, No Respiratory Distress Cardiovascular: Regular Rate, Rhythm, No Edema, No Murmur, Normal Peripheral Pulses Gastrointestinal: Normal Bowel Sounds, Non Tender, Soft Extremity: No Pedal Edema, Other (apparent hematoma on the anterior lateral aspect of the left knee with associated ecchymosis.) Neurologic/Psychiatric: Alert, Oriented x3, No Motor/Sensory Deficits, Normal 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 Dyspnea on exertion, history of bronchial asthma, has history of gastroesophageal reflux disease Coronary artery disease, history of stent to the LAD, cardiac catheterization March 2013 showing patent stents in the proximal LAD with mild in-stent restenosis,mild to moderate disease in the mid LAD and mid circumflex artery, had history of abnormal stress test in the past and was refusing cardiac catheterization. History of gastroesophageal reflux disease, esophagitis, mild dysphagia, esophageal spasm, managed by primary care team Hypertension, monitor blood pressure History of hyperlipidemia, monitor lipids Moderate carotid stenosis tortuous carotids by ultrasound, continue to monitor Acute on chronic renal failure, continue on IV fluid and monitor renal function Electrolyte imbalance, managed by primary care team. Next History of chronic anemia Clinical Quality Measures DVT/VTE Risk/Contraindication: Risk Factor Score Per Nursin RFS Level Per Nursing on Admit: 4+=Very High ELO HOLBROOK MD Dec 26, 2019 08:41
[2019-12-26] MEDS ORDERED: FAMOTIDINE 20MG/2ML IV (PEPCID) IV SCH ×2 (09:00→21:00)
--- NOTE | 2019-12-26 09:08 | Diagnostic Imaging Report ---
EXAMINATION: Chest radiograph, portable AP view. DATE: 12/26/2019 4:54 AM. INDICATION: 89-year-old female, sepsis. Nausea and vomiting. COMPARISON: December 25, 2019. FINDINGS: The heart size and mediastinal contours are unchanged. There is no identified pneumothorax. There is no large pleural effusion. There is no identified interval focal airspace consolidation. The humeral heads are superiorly subluxed bilaterally. IMPRESSION: No identified acute cardiopulmonary abnormality. Dictated by: Dictated on workstation # [id number]
--- NOTE | 2019-12-26 09:16 | History & Physical ---
History of Present Illness HPI/Chief Complaint CC: Sepsis with UTI HPI: This is an 89yoWF clinic patient of mine for the past 16+ years who has a h/o HTN, COPD, CAD prior stent placement, angina, HLP and CRI with chronic anemia who presents to the ER with chills and rigors of 2 days duration. She reports fever and chills since Wednesday and it worsened to the point her daughters brought her to the ER and found the patient to have sepsis and UTI. 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 Rocephin initiated empirically and BCx was + for gram negative dashawn likely E coli per Micro in lab when they called me. Currently patient is feeling better and is receiving IVF. Source: patient, RN/MD, old records Exam Limitations: no limitations Date Seen 12/26/19 Time Seen by a Provider: 09:00 Attending Physician Halle Dejesus DO PCP Halle Dejesus DO Referring Physician Date of Admission Dec 25, 2019 at 21:52 Home Medications & Allergies Home Medications Reviewed patient Home Medication Reconciliation performed by pharmacy medication reconciliations entry level lab technician and/or nursing. Patients Allergies have been reviewed. Allergies Allergies Coded Allergies codeine (Verified Allergy, Mild, 12/25/19) Past Ptqtlig-Bvqbny-Unfrpm Hx Past Med/Social Hx: Reviewed Nursing Past Med/Soc Hx, Reviewed and Corrections made Patient Social History Marrital Status: Employed/Student: retired Alcohol Use: Denies Use Recreational Drug Use: No Smoking Status: Former Smoker Former Smoker, Quit: Mar 08, 1980 Type Used: Cigarettes 2nd Hand Smoke Exposure: No Recent Foreign Travel: No Contact w/other who traveled: No Recent Hopitalizations: No Recent Infectious Disease Expo: No Immunizations Up To Date Tetanus Booster (TDap): Unknown Pediatric: No Date of Pneumonia Vaccine: Apr 22, 2019 Date of Influenza Vaccine: Aug 22, 2019 Seasonal Allergies Seasonal Allergies: No Past Medical History Surgeries: Appendectomy, Bowel Surgery, Cardiac, Coronary Stent, Gallbladder, Joint Replacement, Orthopedic Respiratory: Asthma, COPD, Pneumonia Currently Using CPAP: No Currently Using BIPAP: No Cardiac: Chronic Edema/Swelling, Coronary Artery Disease, High Cholesterol, Hypertension Neurological: Neuropathy Reproductive: No (HAD 9 CHILDREN) Sexually Transmitted Disease: No HIV/AIDS: No Female Reproductive Disorders: Denies Genitourinary: Renal Failure Gastrointestinal: Gastroesophageal Reflux, Hiatal Hernia, Ulcer Musculoskeletal: Degenerate Disk Disease, Arthritis, Chronic Back Pain HEENT: Cataract Loss of Vision: Denies Hearing Impairment: Hard of Hearing Skin/Integumentary: Eczema History of Blood Disorders: Yes (CHRONIC ANEMIA--HGB IN 8'S NORMALLY) Adverse Reaction to Blood Christensen: No Family History Reviewed Nursing Family Hx Abdominal aortic aneurysm 19 FATHER Aphasia G8 SISTER Arthritis 19 MOTHER Cardiovascular disease 19 MOTHER G8 BROTHER Completed stroke G8 SISTER Deafness or hearing loss 19 MOTHER Dementia 19 MOTHER Gastroenteritis 19 MOTHER Hypertension 19 MOTHER G8 SISTER Myocardial infarction G8 BROTHER Psychosocial problem G8 SISTER Respiratory disorder 19 MOTHER G8 BROTHER Thyroid disease G8 BROTHER No Family History of: AIDS [place]ridge's disease Alcoholism Alzheimer's disease Asthma Cancer of mouth Cataracts Colon cancer Congenital disease Congenital heart disease Coronary thrombosis Cystic fibrosis Diabetes mellitus Drug abuse Dysphasia Fibrocystic disease of breast Glaucoma Headache disorder Hypercholesterolemia Infertility Kidney disease Neoplasm Not obtainable due to adoption Osteoporosis Parkinson's disease Prostate cancer Seizure disorder Severe allergy Tuberculosis Visual disorder AAA, Heart Disease, Cancer, CAD Over 55 Years Old, Psychiatric Problems, Stroke Review of Systems Constitutional: see HPI, chills, diaphoresis, dizziness, fever, malaise, weakness, weight loss Musculoskeletal: back pain Psychiatric/Neurological: Anxiety All Other Systems Reviewed Negative Unless Noted: Yes Physical Exam Physical Exam Vital Signs Vital Signs - First Documented 12/25/19 12/26/19 19:37 00:07 Temp 39.2 Pulse 89 Resp 21 B/P (MAP) 153/58 (89) Pulse Ox 99 O2 Delivery Room Air FiO2 21 Capillary Refill : Less Than 3 Seconds Height, Weight, BMI Height: 5'0" Weight: 160lbs. 0.0oz. 72.242847mi; 32.89 BMI Method:Stated General Appearance: WD/WN, Chronically ill, Mild Distress HEENT: PERRL/EOMI, Normal ENT Inspection, Other (mucous membranes somewhat dry) Neck: Normal Inspection Respiratory: Lungs Clear, Normal Breath Sounds, No Accessory Muscle Use, No Respiratory Distress Cardiovascular: Regular Rate, Rhythm, No Edema, No Murmur, Normal Peripheral Pulses Gastrointestinal: Normal Bowel Sounds, Non Tender, Soft Extremity: No Pedal Edema, Other (apparent hematoma on the anterior lateral aspect of the left knee with associated ecchymosis.) Neurologic/Psychiatric: Alert, Oriented x3, No Motor/Sensory Deficits, Normal 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 Assessment/Plan Admission Diagnosis Assessment: Sepsis Acute on chronic renal failure Anemia UTI Bacteremia COPD HTN CAD HLP CRI OA Plan: Rocephin IVF Home meds Monitor closely Admission Status: Inpatient Order (span 2 midnights) Reason for Inpatient Admission: sepsis with renal failure Diagnosis/Problems Diagnosis/Problems (1) Sepsis Status: Acute Qualifiers: Sepsis type: sepsis due to unspecified organism Sepsis acute organ dysfunction status: unspecified Qualified Codes: A41.9 - Sepsis, unspecified organism (2) UTI (urinary tract infection) (3) History of coronary artery stent placement Status: Chronic (4) Chronic anemia Status: Chronic (5) Generalized pain Status: Acute (6) Acute kidney failure Status: Acute Qualifiers: Acute renal failure type: unspecified Qualified Codes: N17.9 - Acute kidney failure, unspecified (7) Urinary tract infection Status: Acute Qualifiers: Urinary tract infection type: site unspecified Hematuria presence: without hematuria Qualified Codes: N39.0 - Urinary tract infection, site not specified (8) Nausea and vomiting Status: Acute Qualifiers: Vomiting type: unspecified Vomiting Intractability: intractable Qualified Codes: R11.2 - Nausea with vomiting, unspecified (9) CAD (coronary artery disease) (10) Gout Status: Chronic (11) Hyperlipidemia Status: Chronic (12) COPD (chronic obstructive pulmonary disease) Status: Chronic (13) Radiculopathy (14) Dysphagia (15) Neuropathy Status: Acute (16) Hyperkalemia Status: Acute Clinical Quality Measures DVT/VTE Risk/Contraindication: Risk Factor Score Per Nursin RFS Level Per Nursing on Admit: 4+=Very High HALLE DEJESUS DO Dec 26, 2019 09:16
[2019-12-26] MEDS: PROMETHAZINE INJ 25 MG/ML (PHENERGAN) AMP IV PRN ×2 (09:40→23:18)
[2019-12-26] MEDS: PANTOPRAZOLE 40 MG (PROTONIX) TAB PO SCH (09:41)
[2019-12-26] MEDS ORDERED: ONDA4TAB11 PO (11:54)
[2019-12-26] MEDS ORDERED: MONT10TA24 PO (11:54)
[2019-12-26] MEDS ORDERED: FLUT1BLS3 INH (11:54)
[2019-12-26] MEDS ORDERED: ALPR0.254 PO (11:54)
[2019-12-26] MEDS ORDERED: METH1ADH5 TP (11:54)
[2019-12-26] MEDS ORDERED: TRAM50TA3 PO (11:54)
[2019-12-26] MEDS ORDERED: HYDR-3812 PO (11:54)
[2019-12-26] MEDS ORDERED: HYDR-700 PO (11:54)
[2019-12-26] MEDS ORDERED: PANT40TA3 PO (11:54)
[2019-12-26] MEDS ORDERED: ALBU18HF2 INH (11:54)
[2019-12-26] MEDS: ANTACID SUSP 30 ML UDC (MYLANTA) PO PRN ×3 (12:16→21:50)
--- NOTE | 2019-12-26 18:35 | Consultation - Surgery ---
[facility] 12/26/19 1835: History of Present Illness History of Present Illness Patient Consulted On(yeni/time) 12/26/19 18:35 Date Seen by Provider: Dec 26, 2019 Time Seen by Provider: 18:11 Reason for Visit: UTI sepsis History of Present Illness This is an 89 F w/ PMH of HTN, heart dz, cholecystectomy, and appendectomy who c/o intermittent "shaking, spasms, and pain all over" which first onset last Wednesday (12/24/2019). These episodes onset spontaneously and have no relieving or exacerbating factors. States they usually start in her feet and spread to rest of her body. She reports she also has been having fevers and SOB w/ exertion. S he was was taken to the ED and was later admitted to the ICU for urosepsis w/ WBC count of 16.8. She has been receiving ABX. Pt also c/o of dysphagia w/ liquids and solids, especially when she eats too fast, has hx of severe chronic gastritis, watermelon stomach, antral ulcer, and small hiatal hernia, w/ normal esophagus according to EGD on Jul [address] Espinoza. Pt has taken Kerafate in the past but has not been taking it lately. State dysphagia improves when she eats slowly and takes smaller bites. No further complaints at this time. Allergies and Home Medications Allergies Coded Allergies: codeine (Verified Allergy, Mild, 12/25/19) Home Medications Albuterol Sulfate 18 Gm Hfa.aer.ad, 2 PUFF INH Q4H PRN for SHORTNESS OF BREATH, (Reported) Alprazolam 0.25 Mg Tablet, 0.25 MG PO TID PRN for ANXIETY, (Reported) Amlodipine Besylate 5 Mg Tablet, 7.5 MG PO DAILY, (Reported) TAKES 1 & 1/2 (5MG) TABLET Aspirin 81 Mg Tablet.dr, 81 MG PO DAILY, (Reported) Fexofenadine HCl 180 Mg Tablet, 180 MG PO DAILY PRN for ALLERGIES, (Reported) Fluticasone/Umeclidin/Vilanter 1 Each Blst.w.dev, 1 PUFF INH DAILY, (Reported) Hydrocodone/Acetaminophen 1 Each Tablet, 1 TAB PO BID PRN for PAIN-MODERATE (5- 7), (Reported) Hydroxyzine HCl 25 Mg Tablet, 25 MG PO Q6H PRN for ITCHING, (Reported) Losartan Potassium 50 Mg Tablet, 50 MG PO DAILY, (Reported) Methyl Salicylate/Menthol 1 Each Adh..patch, 1 PATCH TP HS, (Reported) Montelukast Sodium 10 Mg Tablet, 10 MG PO HS, (Reported) Ondansetron 4 Mg Tab.rapdis, 4 MG PO Q4H PRN for NAUSEA/VOMITING-1ST LINE, (Reported) Pantoprazole Sodium 40 Mg Tablet.dr, 40 MG PO DAILY, (Reported) Pravastatin Sodium 20 Mg Tablet, 20 MG PO DAILY, (Reported) Ranitidine HCl 150 Mg Tablet, 150 MG PO BID PRN for ACID REFLUX, (Reported) Tramadol HCl 50 Mg Tablet, 50 MG PO Q4H PRN for PAIN-MODERATE (5-7), (Reported) Past Oclhaii-Qxeywu-Nlbkhf Hx Patient Social History Alcohol Use: Denies Use Recreational Drug Use: No Smoking Status: Former Smoker Former Smoker, Quit: Mar 08, 1980 Type Used: Cigarettes 2nd Hand Smoke Exposure: No Recent Foreign Travel: No Contact w/Someone Who Travel: No Recent Infectious Disease Expo: No Recent Hopitalizations: No Immunizations Up To Date Tetanus Booster (TDap): Unknown PED Vaccines UTD: No Date of Pneumonia Vaccine: Apr 22, 2019 Date of Influenza Vaccine: Aug 22, 2019 Seasonal Allergies Seasonal Allergies: No Surgeries History of Surgeries: Yes (LAP MIGUEL ANGEL FUNDOPLICATION;EGD'S;BILAT CATARACTS;BILATERAL TKR;CATH-STENT X1) Surgeries: Appendectomy, Bowel Surgery, Cardiac, Coronary Stent, Gallbladder, Joint Replacement, Orthopedic Respiratory History of Respiratory Disorde: Yes (ASTHMA) Respiratory Disorders: Asthma, COPD Cardiovascular History of Cardiac Disorders: Yes (CARDIAC CATH-STENT X 1; CHF) Cardiac Disorders: Chronic Edema/Swelling, Coronary Artery Disease, High Cholesterol, Hypertension Neurological History of Neurological Disord: No Reproductive System Hx Reproductive Disorders: No (HAD 9 CHILDREN) Sexually Transmitted Disease: No HIV/AIDS: No Female Reproductive Disorders: Denies Genitourinary History of Genitourinary Disor: Yes (CHRONIC RENAL FAILURE/INSUFFICIENCY) Genitourinary Disorders: Renal Failure Gastrointestinal History of Gastrointestinal Di: Yes (EGD'S-LAST ONE 07/2019; LAP MIGUEL ANGEL FUNDOPLICATION; CHRONIC GASTRITIS;) Gastrointestinal Disorders: Gastroesophageal Reflux, Hiatal Hernia, Ulcer Musculoskeletal History of Musculoskeletal Dis: Yes (OSTEOARTHRITIS; BILAT TKR; CHRONIC BILAT TORN ROTATOR CUFFS) Musculoskeletal Disorders: Degenerate Disk Disease, Arthritis, Chronic Back Pain Endocrine History of Endocrine Disorders: No HEENT HEENT Disorders: Cataract Loss of Vision: Denies Hearing Impairment: Hard of Hearing Cancer History of Cancer: No Psychosocial History of Psychiatric Problem: No Integumentary History of Skin or Integumenta: Yes Skin/Integumentary Disorders: Eczema Blood Transfusions History of Blood Disorders: Yes (CHRONIC ANEMIA--HGB IN 8'S NORMALLY) Adverse Reaction to a Blood Tr: No Family Medical History Significant Family History: AAA, Heart Disease, Cancer, CAD Over 55 Years Old, Psychiatric Problems, Stroke Family Medial History: Abdominal aortic aneurysm 19 FATHER Aphasia G8 SISTER Arthritis 19 MOTHER Cardiovascular disease 19 MOTHER G8 BROTHER Completed stroke G8 SISTER Deafness or hearing loss 19 MOTHER Dementia 19 MOTHER Gastroenteritis 19 MOTHER Hypertension 19 MOTHER G8 SISTER Myocardial infarction G8 BROTHER Psychosocial problem G8 SISTER Respiratory disorder 19 MOTHER G8 BROTHER Thyroid disease G8 BROTHER No Family History of: AIDS Island's disease Alcoholism Alzheimer's disease Asthma Cancer of mouth Cataracts Colon cancer Congenital disease Congenital heart disease Coronary thrombosis Cystic fibrosis Diabetes mellitus Drug abuse Dysphasia Fibrocystic disease of breast Glaucoma Headache disorder Hypercholesterolemia Infertility Kidney disease Neoplasm Not obtainable due to adoption Osteoporosis Parkinson's disease Prostate cancer Seizure disorder Severe allergy Tuberculosis Visual disorder Review of Systems-General Constitutional: chills, fever EENTM: no symptoms reported Respiratory: No cough; dyspnea on exertion, short of breath Cardiovascular: No chest pain, No edema, No palpitations Gastrointestinal: No abdominal pain, No constipation, No diarrhea; dysphagia; No nausea, No vomiting; other Genitourinary: no symptoms reported : No Musculoskeletal: other (chest wall pain, back pain, shoulder pain, Leg pain, and Arm pain during one her "episodes") Skin: No pruritus, No rash Physical Exam-General Problems Physical Exam Vital Signs Vital Signs - First Documented 12/25/19 12/26/19 19:37 00:07 Temp 39.2 Pulse 89 Resp 21 B/P (MAP) 153/58 (89) Pulse Ox 99 O2 Delivery Room Air FiO2 21 Capillary Refill : Less Than 3 Seconds General Appearance: WD/WN, no apparent distress, other HEENT: pharynx normal, other (DMM) Neck: supple, normal inspection Respiratory: chest non-tender, no respiratory distress, no accessory muscle use Cardiovascular: regular rate, rhythm, no edema Gastrointestinal: non tender, soft, distended; No guarding, No rebound, No tenderness Back: normal inspection, no CVA tenderness, no vertebral tenderness Extremities: non-tender, normal inspection Neurologic/Psychiatric: alert, normal mood/affect, oriented x 3 Skin: normal color, warm/dry Lymphatic: no adenopathy Data Review Labs Laboratory Tests 12/25/19 19:43 12/26/19 03:30 Assessment/Plan Assessment/Plan Assessment/Plan Urosepsis Rigors and body aches Dysphagia HTN CAD w/ Stent placement Severe gastritis, Watermelon stomach, small hiatal hernia Receiving IVF, and Ceftriaxone Continue medical management for sepsis at this time, can discuss doing an Esophagram outpatient once sepsis is resolved No surgical intervention at this time, Eat small, frequent meals and take Jo cralfate & PPI Clinical Quality Measures DVT/VTE Risk/Contraindication: Risk Factor Score Per Nursin RFS Level Per Nursing on Admit: 4+=Very High BENTLEY VEGA DO 12/26/192134: History of Present Illness History of Present Illness History of Present Illness consult requested by Dr. Dejesus for Esophageal spasms. maranda is an 89 year old female admitted with urosepsis. Patient having rigors for about 2 days. They just come on. Patient states she is able to eat and drink but if does too much that she will have to throw up. She has had multiple egd's before with the last being in Jul 2019. Patient has not been taking Carafate lately. She has been taking her Protonix she states. Had recent fall with no injury except hematoma left lower extremity. Allergies and Home Medications Allergies Coded Allergies: codeine (Verified Allergy, Mild, 12/25/19) Home Medications Albuterol Sulfate 18 Gm Hfa.aer.ad, 2 PUFF INH Q4H PRN for SHORTNESS OF BREATH, (Reported) Alprazolam 0.25 Mg Tablet, 0.25 MG PO TID PRN for ANXIETY, (Reported) Amlodipine Besylate 5 Mg Tablet, 7.5 MG PO DAILY, (Reported) TAKES 1 & 1/2 (5MG) TABLET Aspirin 81 Mg Tablet.dr, 81 MG PO DAILY, (Reported) Fexofenadine HCl 180 Mg Tablet, 180 MG PO DAILY PRN for ALLERGIES, (Reported) Fluticasone/Umeclidin/Vilanter 1 Each Blst.w.dev, 1 PUFF INH DAILY, (Reported) Hydrocodone/Acetaminophen 1 Each Tablet, 1 TAB PO BID PRN for PAIN-MODERATE (5- 7), (Reported) Hydroxyzine HCl 25 Mg Tablet, 25 MG PO Q6H PRN for ITCHING, (Reported) Losartan Potassium 50 Mg Tablet, 50 MG PO DAILY, (Reported) Methyl Salicylate/Menthol 1 Each Adh..patch, 1 PATCH TP HS, (Reported) Montelukast Sodium 10 Mg Tablet, 10 MG PO HS, (Reported) Ondansetron 4 Mg Tab.rapdis, 4 MG PO Q4H PRN for NAUSEA/VOMITING-1ST LINE, (Reported) Pantoprazole Sodium 40 Mg Tablet.dr, 40 MG PO DAILY, (Reported) Pravastatin Sodium 20 Mg Tablet, 20 MG PO DAILY, (Reported) Ranitidine HCl 150 Mg Tablet, 150 MG PO BID PRN for ACID REFLUX, (Reported) Tramadol HCl 50 Mg Tablet, 50 MG PO Q4H PRN for PAIN-MODERATE (5-7), (Reported) Patient Home Medication List Home Medication List Reviewed: Yes Past Rixrhnp-Jplrxu-Jqmqkd Hx Reviewed Nursing Assessment Reviewed/Agree w Nursing PMH: Yes Family Medical History Significant Family History: No Pertinent Family Hx Family Medial History: Abdominal aortic aneurysm 19 FATHER Aphasia G8 SISTER Arthritis 19 MOTHER Cardiovascular disease 19 MOTHER G8 BROTHER Completed stroke G8 SISTER Deafness or hearing loss 19 MOTHER Dementia 19 MOTHER Gastroenteritis 19 MOTHER Hypertension 19 MOTHER G8 SISTER Myocardial infarction G8 BROTHER Psychosocial problem G8 SISTER Respiratory disorder 19 MOTHER G8 BROTHER Thyroid disease G8 BROTHER No Family History of: AIDS Island's disease Alcoholism Alzheimer's disease Asthma Cancer of mouth Cataracts Colon cancer Congenital disease Congenital heart disease Coronary thrombosis Cystic fibrosis Diabetes mellitus Drug abuse Dysphasia Fibrocystic disease of breast Glaucoma Headache disorder Hypercholesterolemia Infertility Kidney disease Neoplasm Not obtainable due to adoption Osteoporosis Parkinson's disease Prostate cancer Seizure disorder Severe allergy Tuberculosis Visual disorder Review of Systems-General Constitutional: chills, fever EENTM: no symptoms reported; No ear pain, No blurred vision Respiratory: No cough; dyspnea on exertion, short of breath Cardiovascular: No chest pain, No edema, No palpitations Gastrointestinal: No abdominal pain, No constipation, No diarrhea; dysphagia; No nausea; vomiting Genitourinary: no symptoms reported Musculoskeletal: back pain, joint pain, other (chest wall pain, back pain, shoulder pain, Leg pain, and Arm pain during one her "episodes") Skin: No pruritus, No rash Psychiatric/Neurological: Denies Anxiety, Denies Depressed, Denies Emotional Problems Physical Exam-General Problems Physical Exam General Appearance: WD/WN, no apparent distress HEENT: PERRL/EOMI, normal ENT inspection, pharynx normal, other Neck: non-tender, supple Respiratory: chest non-tender, no respiratory distress, no accessory muscle use Cardiovascular: regular rate, rhythm Gastrointestinal: non tender, soft, no organomegaly, no pulsatile mass; No distended, No guarding, No rebound, No tenderness Rectal: deferred Extremities: non-tender, normal inspection 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 no surgical intervention will follow. Supervisory-Addendum Brief Verification & Attestation Participated in pt care: history, MDM, physical Personally performed: exam, history, MDM, supervision of care Care discussed with: Medical Student Procedures: n/a Results interpretation: Verified all documentation Verification and Attestation of Medical Student E/M Service A medical student performed and documented this service in my presence. I reviewed and verified all information documented by the medical student and made modifications to such information, when appropriate. I personally performed the physical exam and medical decision making. Bentley Vega, Dec 26, 2019,21:37 [facility] Dec 26, 2019 18:35 BENTLEY VEGA DO Dec 26, 2019 21:35
[2019-12-26] MEDS: cefTRIAXone 1,000 MG/SWFI 10 ML IV PUSH IV SCH ×2 (20:13)
[2019-12-27] VITALS (10 sets, daily range): BP systolic 108–161; BP diastolic 43–73
[2019-12-27] MEDS: ALPRAZolam 0.25 MG (XANAX) TAB PO PRN ×3 (00:47→15:43)
[2019-12-27] MEDS: ANTACID SUSP 30 ML UDC (MYLANTA) PO PRN ×2 (00:51→08:56)
[2019-12-27] MEDS: fentaNYL INJECTION 100 MCG/2 ML AMP IV PRN ×5 (01:07→19:59)
[2019-12-27] MEDS: RT-ALBUTEROL SULF 2.5 MG/3 ML PRE-MIX VIAL INH SCH ×4 (01:43→22:02)
[2019-12-27] MEDS: NS IV 1000 ML 1,000 ML IV SCH ×3 (02:52→19:50)
[2019-12-27 03:52] LABS: BASOPHILS % (AUTO) 0 % (0-10); EOSINOPHILS # (AUTO) 0.1 10^3/uL (0.0-0.3); EOSINOPHILS % (AUTO) 1 % (0-10); LYMPHOCYTES # (AUTO) 1.4 X 10^3 (1.0-4.0); LYMPHOCYTES % (AUTO) 13 % (12-44); MEAN CORPUSCULAR HEMOGLOBIN 27 PG (25-34); MEAN CORPUSCULAR HGB CONC 31 G/DL (32-36); MEAN CORPUSCULAR VOLUME 88 FL (80-99); MONOCYTES # (AUTO) 1.1 X 10^3 (0.0-1.0); MONOCYTES % (AUTO) 11 % (0-12); NEUTROPHILS # (AUTO) 7.7 X 10^3 (1.8-7.8); NEUTROPHILS % (AUTO) 75 % (42-75); PLATELET COUNT 236 10^3/uL (130-400); RED CELL DISTRIBUTION WIDTH 14.9 % (10.0-14.5); WHITE BLOOD COUNT 10.3 10^3/uL (4.3-11.0)
[2019-12-27 03:59] LABS: HEMATOCRIT 20 % (35-52); HEMOGLOBIN 6.2 G/DL (11.5-16.0)
[2019-12-27 04:18] LABS: CALCIUM 7.9 MG/DL (8.5-10.1); CREATININE SERUM 1.96 MG/DL (0.60-1.30); MAGNESIUM 2.1 MG/DL (1.6-2.4); PHOSPHORUS 2.9 MG/DL (2.3-4.7); POTASSIUM 4.5 MMOL/L (3.6-5.0)
--- NOTE | 2019-12-27 05:20 | Pulmonary Progress Note ---
Subjective Time Seen by a Provider: 05:21 Subjective/Events-last exam Hb has dropped. Occult stool is negative. Sepsis Event Evaluation Height, Weight, BMI Height: 5'0" Weight: 160lbs. 0.0oz. 72.255010ex; 32.89 BMI Method:Stated Focused Exam Lactate Level 12/25/19 19:43: Lactic Acid Level 1.04 Exam Exam Vital Signs Date Time Temp Pulse Resp B/P (MAP) Pulse Ox O2 Delivery O2 Flow Rate FiO2 12/27/19 04:13 64 17 115/43 (67) 95 Nasal Cannula 2.00 12/27/19 03:16 37.2 12/27/19 01:44 92 Room Air 12/27/19 01:00 98 12/27/19 00:52 Nasal Cannula 2.00 12/27/19 00:02 NIV CPAP 2.00 12/27/19 00:00 71 19 108/48 (68) 89 NIV CPAP 0.00 12/26/19 23:10 36.8 12/26/19 21:25 74 20 93 NIV CPAP 0.00 12/26/19 21:24 NIV CPAP 12/26/19 21:05 93 Room Air 12/26/19 20:54 100 Nasal Cannula 2.00 12/26/19 20:00 37.6 85 14 115/60 (78) 98 Room Air 12/26/19 19:00 74 12/26/19 16:00 79 21 131/49 (76) 95 Room Air 12/26/19 16:00 37.4 12/26/19 15:39 97 Room Air 12/26/19 13:00 72 12/26/19 12:33 Room Air 12/26/19 12:31 100 Nasal Cannula 2.00 12/26/19 12:00 37.0 12/26/19 12:00 80 12 98/48 (65) 100 Nasal Cannula 2.00 12/26/19 10:53 Nasal Cannula 2.00 12/26/19 09:05 93 Nasal Cannula 2.00 12/26/19 08:00 87 21 158/57 (90) 95 Room Air 12/26/19 07:45 95 Room Air 12/26/19 07:00 80 12/26/19 06:00 73 13 101/52 (68) 97 NIV CPAP 6.00 I & O 12/27/19 07:00 Intake Total 3370 ml Output Total 1325 ml Balance 2045 ml Height & Weight Height: 5'0" Weight: 160lbs. 0.0oz. 72.771239bh; 32.89 BMI Method:Stated General Appearance: No Apparent Distress, WD/WN, Chronically ill HEENT: PERRL/EOMI, Normal ENT Inspection, Other (mucous membranes somewhat dry) Neck: Normal Inspection Respiratory: Lungs Clear, Normal Breath Sounds, No Accessory Muscle Use, No Respiratory Distress Cardiovascular: Regular Rate, Rhythm, No Edema, No Murmur, Normal Peripheral Pulses Capillary Refill: Less Than 3 Seconds Gastrointestinal: non tender, soft, no organomegaly, no pulsatile mass; No distended, No guarding, No rebound, No tenderness Extremity: No Pedal Edema, Other (apparent hematoma on the anterior lateral aspect of the left knee with associated ecchymosis.) Neurologic/Psychiatric: Alert, Oriented x3, No Motor/Sensory Deficits, Normal 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 Will repeat -Hold anticoagulation S/p recent fall -Fall precautions KATHY VILLALTA DO Dec 27, 2019 05:20
[2019-12-27] MEDS ORDERED: NS IV 500 ML 500 ML ONE (05:26)
[2019-12-27] MEDS ORDERED: NS IV 500 ML 500 ML IV SCH (05:30)
[2019-12-27] MEDS: POTASSIUM CL 10MEQ/50ML IVPB 50 ML IV SCH (06:07)
[2019-12-27] MEDS: MAGNESIUM 1 GM/100 ML IVPB 100 ML IV SCH (06:08)
[2019-12-27] MEDS: SUCRALFATE 1 GM (CARAFATE) TAB PO SCH ×4 (06:08→19:49)
[2019-12-27] MEDS: KCL 20 MEQ TAB (K-DUR) PO SCH (06:08)
--- NOTE | 2019-12-27 06:36 | Progress Note ---
Subjective Date Seen by a Provider: Dec 27, 2019 Time Seen by a Provider: 09:45 Subjective/Events-last exam Pt improved but still a multitude of medical issues. Receiving blood due to Hgb of 6.2. Consulting Dr. Bowman and ordered iron studies. Denies any pain until she has esophageal spasms. Creatinine much improved. Seems to be tolerating aggressive treatment but she is 89 years old and has a multitude of medical issues that appear to be on the verge of becoming in-stage. Will initiate PT and OT after blood transfused. Review of Systems General: Chills, Fatigue Focused Exam Lactate Level 12/25/19 19:43: Lactic Acid Level 1.04 Objective Exam Last Set of Vital Signs Vital Signs Date Time Temp Pulse Resp B/P (MAP) Pulse Ox O2 Delivery O2 Flow Rate FiO2 12/27/19 04:13 64 17 115/43 (67) 95 Nasal Cannula 2.00 12/27/19 03:16 37.2 12/26/19 00:07 21 Capillary Refill : Less Than 3 Seconds I&O Intake and Output 12/27/19 00:00 Intake Total 2295 ml Output Total 1775 ml Balance 520 ml Intake Oral 1295 ml IV Total 1000 ml Output Urine Total 1775 ml General: Alert, Oriented X3, Cooperative, No Acute Distress HEENT: Atraumatic Lungs: Clear to Auscultation, Normal Air Movement Heart: Regular Rate, Normal S1, Normal S2, No Murmurs Neuro: Normal Gait, Normal Speech, Strength at 5/5 X4 Ext, Normal Tone Results Lab Laboratory Tests 12/26/19 13:50: Stool Occult Blood Immunoassay NEGATIVE 12/27/19 03:25: Sodium Level 139, Potassium Level 4.5, Chloride Level 117H, Carbon Dioxide Level 17L, Anion Gap 5, Blood Urea Nitrogen 41H, Creatinine 1.96H, Estimat Glomerular Filtration Rate 24, BUN/Creatinine Ratio 21, Glucose Level 111H, Calcium Level 7.9L, Phosphorus Level 2.9, Magnesium Level 2.1 12/27/19 03:35: White Blood Count 10.3, Red Blood Count 2.28L, Hemoglobin 6.2*L, Hematocrit 20*L , Mean Corpuscular Volume 88, Mean Corpuscular Hemoglobin 27, Mean Corpuscular Hemoglobin Concent 31L, Red Cell Distribution Width 14.9H, Platelet Count 236, Mean Platelet Volume 11.0H, Neutrophils (%) (Auto) 75, Lymphocytes (%) (Auto) 13, Monocytes (%) (Auto) 11, Eosinophils (%) (Auto) 1, Basophils (%) (Auto) 0, Neutrophils # (Auto) 7.7, Lymphocytes # (Auto) 1.4, Monocytes # (Auto) 1.1H, Eosinophils # (Auto) 0.1, Basophils # (Auto) 0.0 Microbiology 12/25/19 Urine Culture - Preliminary, Resulted Escherichia coli 12/25/19 Blood Culture - Preliminary, Resulted Gram Negative Wislon See Comments 12/25/19 Influenza Types A,B Antigen (NAM) - Final, Complete Assessment/Plan Assessment/Plan Assess & Plan/Chief Complaint Assessment: Sepsis Acute on chronic renal failure Anemia requiring transfusion today UTI Bacteremia COPD HTN CAD HLP CRI OA Plan: Rocephin IVF Home meds Monitor closely PT/OT Dr Tucker consult Diagnosis/Problems Diagnosis/Problems (1) Sepsis Status: Acute Qualifiers: Qualified Codes: A41.9 - Sepsis, unspecified organism (2) UTI (urinary tract infection) (3) History of coronary artery stent placement Status: Chronic (4) Chronic anemia Status: Chronic (5) Generalized pain Status: Acute (6) Acute kidney failure Status: Acute Qualifiers: Qualified Codes: N17.9 - Acute kidney failure, unspecified (7) Urinary tract infection Status: Acute Qualifiers: Qualified Codes: N39.0 - Urinary tract infection, site not specified (8) Nausea and vomiting Status: Acute Qualifiers: Qualified Codes: R11.2 - Nausea with vomiting, unspecified (9) CAD (coronary artery disease) (10) Gout Status: Chronic (11) Hyperlipidemia Status: Chronic (12) COPD (chronic obstructive pulmonary disease) Status: Chronic (13) Radiculopathy (14) Dysphagia (15) Neuropathy Status: Acute (16) Hyperkalemia Status: Acute Clinical Quality Measures DVT/VTE Risk/Contraindication: Risk Factor Score Per Nursin RFS Level Per Nursing on Admit: 4+=Very High TAHIR MARTINEZ DO Dec 27, 2019 06:36
--- NOTE | 2019-12-27 08:41 | Diagnostic Imaging Report ---
INDICATION: Sepsis. UTI. Nausea and vomiting. Comparison with 12/26/2019. FINDINGS: Portable exam. The heart is mildly enlarged. The lungs are well-aerated. Mild interstitial prominence noted. No acute infiltrates are seen. No pneumothorax or pleural effusion. IMPRESSION: 1. Cardiomegaly with mild chronic interstitial changes. No significant changes have occurred when compared with previous exam. Dictated by: Dictated on workstation # [id number]
[2019-12-27] MEDS: ONDANSETRON 4 MG/2 ML (SDV) Z0FRAN IV PRN ×2 (08:55→13:30)
--- NOTE | 2019-12-27 09:24 | Progress Note - Surgery ---
DEVONTE MENON [facility] 12/27/19 0924: Subjective Date Seen by a Provider: Dec 27, 2019 Time Seen by a Provider: 09:01 Subjective/Events-last exam Pt refuses to see me this morning stating "I just cannot answer anymore questions right now". Update @10:09: Went back in w/ dr Vega. Pt was willing to be seen at this time. she is still have episodes of Rigors, chills, and body aches but denies any other additional sx. Still reports she has trouble swallowing if she eats too fast or takes big bites. She has been kept NPO since last night per dr Nunez in case pt needed any surgical intervention. Spoke to nurse and pt and informed them that no surgical intervention is indicated at this time and d/c'ed NPO status. Pt agrees w/ plan. No further complaints Review of Systems General: Chills, Other (Rigors, intermittently) HEENT: No Head Aches, No Visual Changes Pulmonary: No Dyspnea, No Cough Cardiovascular: No: Chest Pain, Palpitations Gastrointestinal: No: Nausea, Vomiting, Abdominal Pain Genitourinary: No Dysuria, No Frequency Musculoskeletal: other (body aches), arm pain, back pain, leg pain Pt refused to be evaluated Focused Exam Lactate Level 12/25/19 19:43: Lactic Acid Level 1.04 Objective Exam Vital Signs Date Time Temp Pulse Resp B/P (MAP) Pulse Ox O2 Delivery O2 Flow Rate FiO2 12/27/19 08:28 93 Nasal Cannula 2.00 12/27/19 07:21 36.8 12/27/19 07:00 70 12/27/19 04:13 64 17 115/43 (67) 95 Nasal Cannula 2.00 12/27/19 03:16 37.2 12/27/19 01:44 92 Room Air 12/27/19 01:00 98 12/27/19 00:52 Nasal Cannula 2.00 12/27/19 00:02 NIV CPAP 2.00 12/27/19 00:00 71 19 108/48 (68) 89 NIV CPAP 0.00 12/26/19 23:10 36.8 12/26/19 21:25 74 20 93 NIV CPAP 0.00 12/26/19 21:24 NIV CPAP 12/26/19 21:05 93 Room Air 12/26/19 20:54 100 Nasal Cannula 2.00 12/26/19 20:00 37.6 85 14 115/60 (78) 98 Room Air 12/26/19 19:00 74 12/26/19 16:00 79 21 131/49 (76) 95 Room Air 12/26/19 16:00 37.4 12/26/19 15:39 97 Room Air 12/26/19 13:00 72 12/26/19 12:33 Room Air 12/26/19 12:31 100 Nasal Cannula 2.00 12/26/19 12:00 37.0 12/26/19 12:00 80 12 98/48 (65) 100 Nasal Cannula 2.00 12/26/19 10:53 Nasal Cannula 2.00 I & O 12/27/19 07:00 Intake Total 3445 ml Output Total 1775 ml Balance 1670 ml Capillary Refill : Less Than 3 Seconds General Appearance: No Apparent Distress, WD/WN, Other (Pt refuses to see me this AM.) HEENT: Other (mucous membranes somewhat dry) Neck: Full Range of Motion, Normal Inspection, Non Tender Respiratory: Chest Non Tender, No Accessory Muscle Use, No Respiratory Distress Cardiovascular: Other (irregular, pt has occasional PACs ) Gastrointestinal: non tender, soft; No distended, No guarding, No rebound Neurologic/Psychiatric: Alert, Oriented x3 Skin: Normal Color, Warm/Dry Lymphatic: No Adenopathy Results Lab Laboratory Tests 12/26/19 13:50: Stool Occult Blood Immunoassay NEGATIVE 12/27/19 03:25: Sodium Level 139, Potassium Level 4.5, Chloride Level 117H, Carbon Dioxide Level 17L, Anion Gap 5, Blood Urea Nitrogen 41H, Creatinine 1.96H, Estimat Glomerular Filtration Rate 24, BUN/Creatinine Ratio 21, Glucose Level 111H, Calcium Level 7.9L, Phosphorus Level 2.9, Magnesium Level 2.1 12/27/19 03:35: White Blood Count 10.3, Red Blood Count 6.29H, Hemoglobin 6.2*L, Hematocrit 20*L , Mean Corpuscular Volume 88, Mean Corpuscular Hemoglobin 27, Mean Corpuscular Hemoglobin Concent 31L, Red Cell Distribution Width 14.9H, Platelet Count 236, Mean Platelet Volume 11.0H, Neutrophils (%) (Auto) 75, Lymphocytes (%) (Auto) 13, Monocytes (%) (Auto) 11, Eosinophils (%) (Auto) 1, Basophils (%) (Auto) 0, Neutrophils # (Auto) 7.7, Lymphocytes # (Auto) 1.4, Monocytes # (Auto) 1.1H, Eosinophils # (Auto) 0.1, Basophils # (Auto) 0.0, Absolute Reticulocyte Count 191H, Percent Reticulocyte Count 3.04H Microbiology 12/25/19 MRSA Screen - Final, Complete MRSA not isolated 12/25/19 Urine Culture - Preliminary, Resulted Escherichia coli 12/25/19 Blood Culture - Preliminary, Resulted Gram Negative Wilson See Comments Assessment/Plan Assessment/Plan Assessment/Plan UTI sepsis Rigors and body aches Dysphagia HTN CAD w/ Stent placement History of severe gastritis, Watermelon stomach, small hiatal hernia Pt refused to see me this AM, was unable to perform ROS and PE, spoke to nurse who states pt has been having similar shakes and rigors to last and has been a lert and oriented. Evaluated pt at a later time and noted findings in HPI. continue medical management currently on protonix and carafate, willl keep on this as outpatient. no surgical intervention at this time, will not need to be NPO, continue with regular diet as tolerated will follow. Clinical Quality Measures DVT/VTE Risk/Contraindication: Risk Factor Score Per Nursin RFS Level Per Nursing on Admit: 4+=Very High JEFFERY VEGA DO 12/27/19 1535: Subjective Subjective/Events-last exam Patient same as yesterday. Having shakes that can't control at times. Had drop in hgb. Occult stool negative. No abdominal pain. Denies fever sweats shortness of breath or chest pain. Family at bedside. 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 Norm as Tested Skin: Normal Color, Warm/Dry, Ecchymosis (lle) Lymphatic: No Adenopathy Assessment/Plan Assessment/Plan Assessment/Plan UTI sepsis Rigors and body aches Anemia Dysphagia HTN CAD w/ Stent placement History of severe gastritis, Watermelon stomach, small hiatal hernia anemia possible due to dilution, occult stool negative continue protonix/carafate follow hgb may need egd to re-evaluate if hgb not improve Supervisory-Addendum Brief Verification & Attestation Participated in pt care: history, MDM, physical Personally performed: exam, history, MDM, supervision of care Care discussed with: Medical Student Procedures: n/a Results interpretation: Verified all documentation Verification and Attestation of Medical Student E/M Service A medical student performed and documented this service in my presence. I reviewed and verified all information documented by the medical student and made modifications to such information, when appropriate. I personally performed the physical exam and medical decision making. Jeffery Vega, Dec 27, 2019,15:35 [facility]ON[facility] MEN[facility] Dec 27, 2019 09:24 JEFFERY VEGA DO Dec 27, 2019 15:35
[2019-12-27] MEDS: PANTOPRAZOLE 40 MG (PROTONIX) TAB PO SCH (09:33)
--- NOTE | 2019-12-27 10:10 | Cardiology Progress Note ---
Subjective Date Seen by Provider: Dec 27, 2019 Time Seen by Provider: 10:08 Subjective/Events-last exam patient is laying down in bed, feeling better today. Denied any chest pain. No palpitation Review of Systems General: No Chills, No Night Sweats; Fatigue; No Malaise, No Appetite, No Other HEENT: No Head Aches, No Visual Changes, No Eye Pain, No Ear Pain, No Dysp hasia, No Sinus Congestion, No Post Nasal Drip, No Sore Throat, No Other Pulmonary: Dyspnea; No Cough, No Pleuritic Chest Pain, No Other Cardiovascular: No: Chest Pain, Palpitations, Orthopnea, Paroxysmal Noc. Dyspnea, Edema, Lt Headedness, Other Focused Exam Lactate Level 12/25/19 19:43: Lactic Acid Level 1.04 Objective-Cardiology Exam Last Set of Vital Signs Vital Signs 12/26/19 12/27/19 12/27/19 12/27/19 00:07 07:21 08:00 08:28 Temp 36.8 Pulse 73 Resp 20 B/P (MAP) 144/59 (87) Pulse Ox 93 O2 Delivery Nasal Cannula O2 Flow Rate 2.00 FiO2 21 Capillary Refill : Less Than 3 Seconds I&O Intake and Output 12/27/19 00:00 Intake Total 2295 ml Output Total 1775 ml Balance 520 ml Intake Oral 1295 ml IV Total 1000 ml Output Urine Total 1775 ml General: Alert, Oriented X3, Cooperative HEENT: Atraumatic, PERRLA Neck: Supple, No JVD, No Thyromegaly Lungs: Clear to Auscultation, Normal Air Movement Heart: Regular Rate, Normal S1, Normal S2, No Murmurs Abdomen: Normal Bowel Sounds, Soft, No Tenderness, No Hepatosplenomegaly, No Masses Extremities: No Clubbing, No Cyanosis, No Edema, Normal Pulses, No Tenderness/Swelling Skin: No Rashes, No Breakdown, No Significant Lesion Neuro: Normal Gait, Normal Speech, Strength at 5/5 X4 Ext, Normal Tone, Sensation Intact Psych/Mental Status: Mental Status NL, Mood NL Results Lab Laboratory Tests 12/27/19 03:25 12/27/19 03:35 A/P-Cardiology Admission Diagnosis Sepsis Urinary tract infection Chest pain Coronary artery disease Assessment/Plan Sepsis with UTI, receiving antibiotic, managed by primary care team Chest pain, generalized body ache, history of [id number] coronary artery disease, continue to monitor EKG and cardiac enzymes. Dyspnea, history of bronchial asthma, has history of gastroesophageal reflux disease Coronary artery disease, history of stent to the LAD, cardiac catheterization March 2013 showing patent stents in the proximal LAD with mild in-stent restenosis,mild to moderate disease in the mid LAD and mid circumflex artery, had history of abnormal stress test in the past and was refusing cardiac catheterization. History of gastroesophageal reflux disease, esophagitis, mild dysphagia, esophageal spasm, managed by primary care team Hypertension, monitor blood pressure History of hyperlipidemia, monitor lipids Moderate carotid stenosis tortuous carotids by ultrasound, continue to monitor Acute on chronic renal failure, improving slowly, continue on IV fluid and monitor closely. History of chronic anemia, H&H are worse today, receiving one unit of packed RBCs, continue to monitor Clinical Quality Measures DVT/VTE Risk/Contraindication: Risk Factor Score Per Nursin RFS Level Per Nursing on Admit: 4+=Very High ELO HOLBROOK MD Dec 27, 2019 10:10
--- NOTE | 2019-12-27 10:57 | Progress Note ---
EV COYNE,MED STUDENT 12/27/19 1057: Progress Note CC: Sepsis with UTI HPI: Mrs. Moreira is an 89 year old female that came to the emergency department on Wednesday with a complaint of fevers and chills that began 12/24/19. She describes "episodes" of shaking that begins in her feet and travels upward resulting in full body shaking and rigors. During this time that patient experiences diffuse pain as well as nausea. The typical duration is around several minutes but varies based on the patient and families reports. Once in the emergency room she was diagnosed with sepsis and a UTI. The shaking episodes originally were becoming more frequent. She has been getting zofran, ativan, and pain medication at initiation of the episodes which seem to help. Today Mrs. Moreira did note some confusion after she awoke this morning but states that has resolved. She al so admits to dizziness, weakness, chills, and malaise. She also complains of dysphagia with solids and liquids. She states this is a chronic problem for her and has not worsened recently. She takes pepcid regularly but has not been taking the prescribed Carafate. She states she manages the dysphagia by taking small bites which seems to decrease the symptoms. Family reports a fall at home on 12/17 with no injuries other than a noted hematoma on LLE. Patient is of advanced age and multiple medical conditions including HTN, CAD, severe gastritis, chronic anemia, COPD, renal failure, hiatal hernia Allergies: codeine Surgical history: cholecystectomy, appendectomy, last EGD done 07/2019, coronary stents, joint replacement Alcohol: denies use Tobacco: former smoker, quit 1979 Physical Exam: General: alert and oriented x3, well nourished/well developed, chronically ill, mild distress Heart: regular rate and rhythm, no murmurs, no pedal edema Lungs: clear to auscultation bilaterally, no respiratory distress, no accessory muscle use Assessment and Plan: Sepsis UTI Anemia Rigors Severe Gastris Continue ceftriaxone, IVF, pepcid and carafate. Ativan, Zofran, and fentanyl as needed. Continue home medications Pt is currently getting 1 unit packed red blood cells Begin PT/OT once blood has been transfused Dr. Tucker consult for acute on chronic anemia HALLE MARTINEZ DO 12/27/19 2012: Supervisory-Addendum Brief Verification & Attestation Participated in pt care: history, MDM, physical Personally performed: exam, history, MDM, supervision of care Care discussed with: Medical Student Procedures: n/a Results interpretation: Verified all documentation Verification and Attestation of Medical Student E/M Service A medical student performed and documented this service in my presence. I reviewed and verified all information documented by the medical student and made modifications to such information, when appropriate. I personally performed the physical exam and medical decision making. Halle Martinez, Dec 27, 2019,20:12 EV COYNE,MED STUDENT Dec 27, 2019 10:57 HALLE MARTINEZ DO Dec 27, 2019 20:12
[2019-12-27 13:53] LABS: BASOPHILS % (AUTO) 0 % (0-10); EOSINOPHILS # (AUTO) 0.2 10^3/uL (0.0-0.3); EOSINOPHILS % (AUTO) 2 % (0-10); HEMATOCRIT 25 % (35-52); HEMOGLOBIN 7.8 G/DL (11.5-16.0); LYMPHOCYTES # (AUTO) 1.4 X 10^3 (1.0-4.0); LYMPHOCYTES % (AUTO) 13 % (12-44); MEAN CORPUSCULAR HEMOGLOBIN 28 PG (25-34); MEAN CORPUSCULAR HGB CONC 32 G/DL (32-36); MEAN CORPUSCULAR VOLUME 89 FL (80-99); MEAN PLATELET VOLUME 10.9 FL (7.4-10.4); MONOCYTES # (AUTO) 1.1 X 10^3 (0.0-1.0); MONOCYTES % (AUTO) 10 % (0-12); NEUTROPHILS # (AUTO) 8.5 X 10^3 (1.8-7.8); NEUTROPHILS % (AUTO) 76 % (42-75); PLATELET COUNT 260 10^3/uL (130-400); WHITE BLOOD COUNT 11.2 10^3/uL (4.3-11.0)
[2019-12-27 14:18] LABS: ALBUMIN 3.2 GM/DL (3.2-4.5); BILIRUBIN,DIRECT 0.6 MG/DL (0.0-0.3); BILIRUBIN,TOTAL 1.4 MG/DL (0.1-1.0); CALCIUM 8.4 MG/DL (8.5-10.1); CREATININE SERUM 1.88 MG/DL (0.60-1.30); POTASSIUM 4.8 MMOL/L (3.6-5.0); TOTAL PROTEIN 6.2 GM/DL (6.4-8.2)
[2019-12-27 14:23] LABS: RETICULOCYTE % 2.54 % (0.50-2.40)
--- NOTE | 2019-12-27 18:20 | CONSULTATION REPORT ---
DATE OF SERVICE: 12/27/2019 The patient is admitted to ICU bed 5. PHYSICIAN REQUESTING CONSULTATION: Halle Dejesus DO IMPRESSION: 1. An 89-year-old female admitted with fever and chills and found to have E. coli UTI and sepsis. 2. 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 3. Chronic kidney disease, stage III to IV. RECOMMENDATIONS: 1. Obtain a CBC with reticulocyte count, CMP with direct bilirubin and LDH, urine hemosiderin, , cold agglutinin titer and repeat CBC with CMP and direct bilirubin in a.m. 2. Agree with 1 unit of packed red blood cell transfusion using a blood warmer because of the symptomatic anemia. 3. Continue treatment for the E. coli sepsis as you are doing. 4. Monitor CBC and chemistry panel serially. 5. We will follow the patient with you. The patient is an 89-year-old female who was brought to the hospital by family because of chills, fever and myalgias. This started on Wednesday and she was getting worse, she was brought to the emergency room and admitted to the hospital. Her initial blood cultures did grow out gram-negative dashawn and the urine showed E. coli. She was started on broad spectrum antibiotics. She has baseline anemia, but this significantly worsened during the hospitalization and hematology consultation was obtained. The patient has previous history of cold agglutinin disease and hemolysis and had seen Dr. Colunga in the distant past. She has been relatively stable over the past few years. PAST MEDICAL HISTORY: Significant for coronary artery disease requiring a stent and a history of congestive heart failure in the past. Also has history of hypertension and hypercholesterolemia. She has a chronic kidney disease, stage III to IV for several years. History of gastroesophageal reflux disease and Robert fundoplication in the past. History of osteoarthritis requiring bilateral total knee replacement. She has bilateral torn rotator cuffs as well as chronic back pain. She has history of COPD. Other surgeries include bilateral cataracts, cholecystectomy. SOCIAL HISTORY: The patient lives in [place] by herself. She has several children who live close by and has been spending time with her at home during the nighttime since the last one to two months. She has a previous history of tobacco use, but quit more than 40 years ago. No history of alcohol or other recreational drug use. FAMILY HISTORY: Significant for coronary artery disease in her mother and brother. Hypertension in mother and a sister. Abdominal aortic aneurysm in her father. CVA in his sister. COPD in mother and her brother. Hypothyroidism in a brother. No major malignancies or hematologic problems in the family that the patient knows of. PHYSICAL EXAMINATION: GENERAL: Showed an elderly female, well developed, well nourished, awake and oriented, in mild respiratory distress. VITAL SIGNS: Temperature was 36.8, pulse rate of 78, respirations 35, blood pressure 151/68 with oxygen saturation of 96% on 2 liters of oxygen by nasal cannula. HEENT: Normocephalic, extraocular muscles intact, conjunctivae pale, oral mucosa moist. NECK: Supple, with no JVD. No cervical, supraclavicular or axillary lymphadenopathy palpable. CHEST: Symmetrical. LUNGS: Slightly diminished breath sounds bilaterally without wheezes or rales. CARDIOVASCULAR: Regular in rate and rhythm without murmurs or gallops. ABDOMEN: Soft, nontender with no hepatosplenomegaly or other masses palpable. EXTREMITIES: Showed no edema. NEUROLOGIC: Showed no focal motor deficits. LABORATORY DATA: CBC done today morning showed WBC 10.3, hemoglobin 6.2, MCV 88, platelet count 236,000 with neutrophil count 7.7, lymphocyte count 1.4, and monocyte count 1.1. Absolute reticulocyte count done earlier today was 51,000. Chemistry panel done this morning showed normal electrolytes except chloride of 117 and CO2 of 17. BUN was 41 and creatinine 1.96 with GFR 24 mL per minute. CMP done yesterday had shown total bilirubin level of 2.3. Rest of the liver function studies were normal except alkaline phosphatase level of 138. Serum iron studies are pending. Stool occult blood test done yesterday and today was negative. Cold agglutinin titer done in 09/2015 was elevated at . Repeat level ordered today is pending. Mycoplasma pneumoniae IgG was elevated at 1 in 256 and IgM was slightly elevated at 1 in 110. In July 2015. Thank you for allowing me to participate in this patient's care. I will follow the patient with you and make appropriate recommendations. Job ID: [id number] DocumentID: [id number] Dictated Date: 12/27/2019 15:42:19 Doctor Naturopathic Date: 12/27/2019 18:19:39 Dictated By: TAMIKA HINOJOSA MD
[2019-12-27] MEDS: cefTRIAXone 1,000 MG/SWFI 10 ML IV PUSH IV SCH ×2 (19:50)
[2019-12-27] MEDS: LORazepam INJ 2 MG/ML (ATIVAN) VIAL IVP PRN (20:01)
[2019-12-27] MEDS ORDERED: FAMOTIDINE 20 MG (PEPCID) TABLET PO SCH (21:00)
[2019-12-28] VITALS: BP 137/57
[2019-12-28] MEDS: fentaNYL INJECTION 100 MCG/2 ML AMP IV PRN ×4 (01:40→11:26)
[2019-12-28] MEDS: LORazepam INJ 2 MG/ML (ATIVAN) VIAL IVP PRN ×2 (01:42→11:26)
[2019-12-28] MEDS: NS IV 1000 ML 1,000 ML IV SCH ×2 (02:25→09:16)
[2019-12-28 03:57] LABS: BASOPHILS % (AUTO) 1 % (0-10); EOSINOPHILS # (AUTO) 0.3 10^3/uL (0.0-0.3); EOSINOPHILS % (AUTO) 3 % (0-10); HEMATOCRIT 26 % (35-52); LYMPHOCYTES # (AUTO) 1.7 X 10^3 (1.0-4.0); LYMPHOCYTES % (AUTO) 20 % (12-44); MEAN CORPUSCULAR HEMOGLOBIN 27 PG (25-34); MEAN CORPUSCULAR HGB CONC 31 G/DL (32-36); MEAN CORPUSCULAR VOLUME 88 FL (80-99); MEAN PLATELET VOLUME 10.9 FL (7.4-10.4); MONOCYTES # (AUTO) 1.1 X 10^3 (0.0-1.0); MONOCYTES % (AUTO) 13 % (0-12); NEUTROPHILS # (AUTO) 5.3 X 10^3 (1.8-7.8); NEUTROPHILS % (AUTO) 63 % (42-75); PLATELET COUNT 269 10^3/uL (130-400); RED CELL DISTRIBUTION WIDTH 15.3 % (10.0-14.5); WHITE BLOOD COUNT 8.4 10^3/uL (4.3-11.0)
[2019-12-28 04:00] VITALS: BP 155/77
[2019-12-28] MEDS: RT-ALBUTEROL SULF 2.5 MG/3 ML PRE-MIX VIAL INH SCH ×2 (04:26→06:38)
[2019-12-28 04:32] LABS: CALCIUM 8.4 MG/DL (8.5-10.1); CREATININE SERUM 1.67 MG/DL (0.60-1.30); MAGNESIUM 2.1 MG/DL (1.6-2.4); PHOSPHORUS 2.7 MG/DL (2.3-4.7); POTASSIUM 4.6 MMOL/L (3.6-5.0)
[2019-12-28] MEDS: MAGNESIUM 1 GM/100 ML IVPB 100 ML IV SCH (04:34)
[2019-12-28] MEDS: POTASSIUM CL 10MEQ/50ML IVPB 50 ML IV SCH (04:34)
[2019-12-28] MEDS: KCL 20 MEQ TAB (K-DUR) PO SCH (04:34)
--- NOTE | 2019-12-28 06:38 | Pulmonary Progress Note ---
Subjective Time Seen by a Provider: 06:38 Sepsis Event Evaluation Height, Weight, BMI Height: 5'0" Weight: 160lbs. 0.0oz. [id number]; 32.89 BMI Method:Stated Focused Exam Lactate Level 12/25/19 19:43: Lactic Acid Level 1.04 Exam Exam Vital Signs Date Time Temp Pulse Resp B/P (MAP) Pulse Ox O2 Delivery O2 Flow Rate FiO2 12/28/19 04:26 93 Nasal Cannula 2.00 12/28/19 04:00 70 25 155/77 (103) 94 Nasal Cannula 2.00 12/28/19 03:53 36.6 12/28/19 01:49 Nasal Cannula 2.00 12/28/19 01:00 64 12/28/19 00:00 67 25 137/57 (83) 92 NIV Bilevel 2.00 12/27/19 23:51 35.9 12/27/19 22:13 NIV Bilevel 2.00 12/27/19 22:02 93 Nasal Cannula 2.00 12/27/19 20:08 96 Nasal Cannula 2.00 12/27/19 20:00 87 32 161/73 (102) 95 Nasal Cannula 2.00 12/27/19 20:00 37.2 12/27/19 19:00 70 12/27/19 16:00 36.8 12/27/19 16:00 72 135/58 (83) 96 Nasal Cannula 2.00 12/27/19 14:35 96 Nasal Cannula 2.00 12/27/19 13:00 67 12/27/19 12:19 36.8 12/27/19 12:00 78 35 151/68 (95) 96 Nasal Cannula 2.00 12/27/19 10:21 37.2 76 18 126/55 95 Nasal Cannula 2.00 12/27/19 10:16 37.2 77 18 137/50 96 Nasal Cannula 2.00 12/27/19 10:07 37.2 80 16 127/53 96 Nasal Cannula 2.00 12/27/19 10:07 37.2 80 16 127/53 96 Nasal Cannula 2.00 12/27/19 09:57 37.2 77 16 130/52 96 Nasal Cannula 2.00 12/27/19 09:00 96 Nasal Cannula 2.00 12/27/19 08:28 93 Nasal Cannula 2.00 12/27/19 08:00 73 20 144/59 (87) 94 Nasal Cannula 2.00 12/27/19 07:21 36.8 12/27/19 07:00 70 I & O 12/28/19 07:00 Intake Total 3025 ml Output Total 1725 ml Balance 1300 ml Height & Weight Height: 5'0" Weight: 160lbs. 0.0oz. [id number]; 32.89 BMI Method:Stated General Appearance: No Apparent Distress, WD/WN HEENT: PERRL/EOMI, Normal ENT Inspection Neck: Full Range of Motion, Normal Inspection, Non Tender Respiratory: Chest Non Tender, No Accessory Muscle Use, No Respiratory Distress Cardiovascular: Other (irregular, pt has occasional PACs ) Capillary Refill: Less Than 3 Seconds Gastrointestinal: non tender, soft; No distended, No guarding, No rebound Extremity: Non Tender, Other (left lower extremity bruising) Neurologic/Psychiatric: Alert, Oriented x3, No Motor/Sensory Deficits, Normal Mood/Affect, port drier II-XII Norm as Tested Skin: Normal Color, Warm/Dry, Ecchymosis (lle) Lymphatic: No Adenopathy Results Lab Laboratory Tests 12/27/19 03:25 12/27/19 03:35 12/27/19 13:35 12/28/19 03:35 Assessment/Plan Assessment/Plan Sepsis with UTI -rocephin -Influeza is negative -Estrada cultures pending -IVF Acute renal failure with hyperkalemia - improving -IVF Metabolic acidosis -Improving anemia -- worsening - Will transfuse 1 unit PRBC -Monitor -Hold anticoagulation S/p recent fall -Fall precautions KATHY VILLALTA DO Dec 28, 2019 06:38
[2019-12-28] MEDS: SUCRALFATE 1 GM (CARAFATE) TAB PO SCH ×2 (07:02→11:33)
[2019-12-28 08:00] VITALS: BP 136/50
[2019-12-28] MEDS: ALPRAZolam 0.25 MG (XANAX) TAB PO PRN (08:04)
--- NOTE | 2019-12-28 08:44 | Diagnostic Imaging Report ---
INDICATION: Sepsis, urinary tract infection. TECHNIQUE: Single view chest 3:15 AM. CORRELATION STUDY: 12/27/2019 FINDINGS: Heart size stable. Presence of pulmonary vascular congestion and interstitial edema. Superimposed areas of infiltrate or edema about the right lung base. Advanced degenerative changes of both shoulders. IMPRESSION: 1. Findings of congestive heart failure and interstitial edema overall appear adversely increased in severity since prior study. 2. Superimposed infiltrate and/or asymmetric edema about the right lung base. Dictated by: Dictated on workstation # [id number]
[2019-12-28] MEDS: PANTOPRAZOLE 40 MG (PROTONIX) TAB PO SCH (09:16)
--- NOTE | 2019-12-28 09:52 | Discharge Summary ---
Diagnosis/Chief Complaint Date of Admission Dec 25, 2019 at 21:52 Date of Discharge Discharge Date: Dec 28, 2019 Discharge Diagnosis Assessment: Sepsis Acute on chronic renal failure Anemia requiring transfusion UTI Bacteremia COPD HTN CAD HLP CRI OA Plan: Rocephin IVF Home meds Monitor closely PT/OT Dr Tucker consult IRF Discharge Summary Discharge Physical Examination Allergies: Coded Allergies: codeine (Verified Allergy, Mild, 12/25/19) Vitals & I&Os Vital Signs Date Time Temp Pulse Resp B/P (MAP) Pulse Ox O2 Delivery O2 Flow Rate FiO2 12/28/19 09:18 96 Nasal Cannula 2.00 12/28/19 08:00 85 14 136/50 (78) 12/28/19 08:00 36.8 12/26/19 00:07 21 General Appearance: Alert, Oriented X3, Cooperative Respiratory: Clear to Auscultation Cardiovascular: Regular Rate Neuro: Normal Gait Hospital Course Was the Problem List Reviewed?: Yes Pt had an uneventful but significant hospital course placed in ICU for sepsis with acute renal failure and UTI. Pt received aggressive IV fluids, cardiology and pulmonology intensivists were both consulted along with Dr. Taylor for esophageal spasms. She was placed on Rocephin empirically, blood cultures returned E.coli so she will complete Rocephin and she will need PT and OT because she was falling at home suffering a left leg hematoma so she will require intensive therapy in order to return home and her children will provide 24/7 coverage and care taking responsibility at DC. Pt overall felt a lot better when she was DC to inpatient rehab. Labs (last 24 hrs) Laboratory Tests 12/25/19 19:43: White Blood Count 8.4, Red Blood Count 2.87L, Hemoglobin 7.8L, Hematocrit 25L, Mean Corpuscular Volume 87, Mean Corpuscular Hemoglobin 27, Mean Corpuscular Hemoglobin Concent 31L, Red Cell Distribution Width 15.2H, Platelet Count 262, Mean Platelet Volume 10.8H, Neutrophils (%) (Auto) 89H, Lymphocytes (%) (Auto) 8L, Monocytes (%) (Auto) 2, Eosinophils (%) (Auto) 1, Basophils (%) (Auto) 0, Neutrophils # (Auto) 7.5, Lymphocytes # (Auto) 0.7L, Monocytes # (Auto) 0.1, Eos inophils # (Auto) 0.0, Basophils # (Auto) 0.0, Neutrophils % (Manual) 88, Lymphocytes % (Manual) 10, Monocytes % (Manual) 1, Eosinophils % (Manual) 1, Hypochromasia MODERATE, Blood Morphology Comment SEE REFERENCE, Prothrombin Time 14.2, INR Comment 1.1, Activated Partial Thromboplast Time 26, Sodium Level 134L , Potassium Level 6.0H, Chloride Level 108H, Carbon Dioxide Level 15L, Anion Gap 11, Blood Urea Nitrogen 58H, Creatinine 2.69H, Estimat Glomerular Filtration Rate 17, BUN/Creatinine Ratio 22, Glucose Level 157H, Lactic Acid Level 1.04, Calcium Level 8.8, Corrected Calcium 9.0, Total Bilirubin 2.7H, Aspartate Amino Transf (AST/SGOT) 12, Alanine Aminotransferase (ALT/SGPT) 10, Alkaline Phosphatase 162H, Troponin I < 0.028, C-Reactive Protein High Sensitivity 17.05H , Total Protein 6.9, Albumin 3.8, Procalcitonin 25.73H 12/25/19 20:50: Urine Color YELLOW, Urine Clarity SL CLOUDY, Urine pH 6.0, Urine Specific [place] >=1.030, Urine Protein 2+H, Urine Glucose (UA) NEGATIVE, Urine Ketones NEGATIVE, Urine Nitrite NEGATIVE, Urine Bilirubin NEGATIVE, Urine Urobilinogen 1.0, Urine Leukocyte Esterase 2+H, Urine RBC (Auto) 1+H, Urine RBC 2-5H, Urine WBC TNTCH, Urine Crystals NONE, Urine Bacteria LARGEH, Urine Casts NONE, Urine Mucus NEGATIVE, Urine Culture Indicated CULTURE PENDING 12/26/19 03:30: White Blood Count 16.8H, Red Blood Count 2.62L, Hemoglobin 7.0L, Hematocrit 23L, Mean Corpuscular Volume 87, Mean Corpuscular Hemoglobin 27, Mean Corpuscular Hemoglobin Concent 31L, Red Cell Distribution Width 15.1H, Platelet Count 240, Mean Platelet Volume 10.8H, Neutrophils (%) (Auto) 77H, Lymphocytes (%) (Auto) 11L, Monocytes (%) (Auto) 11, Eosinophils (%) (Auto) 0, Basophils (%) (Auto) 0, Neutrophils # (Auto) 13.0H, Lymphocytes # (Auto) 1.9, Monocytes # (Auto) 1.9H, Eosinophils # (Auto) 0.0, Basophils # (Auto) 0.0, Neutrophils % (Manual) 78, Lymphocytes % (Manual) 13, Monocytes % (Manual) 9, Sodium Level 137, Potassium Level 5.4H, Chloride Level 114H, Carbon Dioxide Level 13L, Anion Gap 10, Blood Urea Nitrogen 54H, Creatinine 2.39H, Estimat Glomerular Filtration Rate 19, BUN/Creatinine Ratio 23, Glucose Level 178H, Calcium Level 8.2L, Corrected Calcium 8.7, Total Bilirubin 2.3H, Aspartate Amino Transf (AST/SGOT) 12, Alanine Aminotransferase (ALT/SGPT) 9, Alkaline Phosphatase 138H, Total Protein 6.3L, Albumin 3.4, Phosphorus Level 3.3, Magnesium Level 2.0 12/26/19 13:50: Stool Occult Blood Immunoassay NEGATIVE 12/27/19 03:25: Sodium Level 139, Potassium Level 4.5, Chloride Level 117H, Carbon Dioxide Level 17L, Anion Gap 5, Blood Urea Nitrogen 41H, Creatinine 1.96H, Estimat Glomerular Filtration Rate 24, BUN/Creatinine Ratio 21, Glucose Level 111H, Calcium Level 7.9L, Phosphorus Level 2.9, Magnesium Level 2.1 12/27/19 03:35: White Blood Count 10.3, Red Blood Count 2.01L, Hemoglobin 6.2*L, Hematocrit 20*L , Mean Corpuscular Volume 88, Mean Corpuscular Hemoglobin 27, Mean Corpuscular Hemoglobin Concent 31L, Red Cell Distribution Width 14.9H, Platelet Count 236, Mean Platelet Volume 11.0H, Neutrophils (%) (Auto) 75, Lymphocytes (%) (Auto) 13, Monocytes (%) (Auto) 11, Eosinophils (%) (Auto) 1, Basophils (%) (Auto) 0, Neutrophils # (Auto) 7.7, Lymphocytes # (Auto) 1.4, Monocytes # (Auto) 1.1H, Eosinophils # (Auto) 0.1, Basophils # (Auto) 0.0, Absolute Reticulocyte Count 51, Percent Reticulocyte Count 2.54H, Iron Level 17L, Ferritin 199.4H 12/27/19 12:02: Stool Occult Blood Immunoassay NEGATIVE 12/27/19 13:35: Sodium Level 142, Potassium Level 4.8, Chloride Level 117H, Carbon Dioxide Level 18L, Anion Gap 7, Blood Urea Nitrogen 37H, Creatinine 1.88H, Estimat Glomerular Filtration Rate 25, BUN/Creatinine Ratio 20, Glucose Level 98, Calcium Level 8.4L, White Blood Count 11.2H, Red Blood Count 2.79L, Hemoglobin 7.8#L, Hematocrit 25L, Mean Corpuscular Volume 89, Mean Corpuscular Hemoglobin 28, Mean Corpuscular Hemoglobin Concent 32, Red Cell Distribution Width 15.0H, Platelet Count 260, Mean Platelet Volume 10.9H, Neutrophils (%) (Auto) 76H, Lymphocytes (%) (Auto) 13, Monocytes (%) (Auto) 10, Eosinophils (%) (Auto) 2, Basophils (%) (Auto) 0, Neutrophils # (Auto) 8.5H, Lymphocytes # (Auto) 1.4, Monocytes # (Auto) 1.1H, Eosinophils # (Auto) 0.2, Basophils # (Auto) 0.0, Iron Level 76, Ferritin 191.7H, Corrected Calcium 9.0, Total Iron Binding Capacity 246L, Unsaturated Iron Binding Capacity 170, Transferrin % Saturation 31, Total Bilirubin 1.4H, Direct Bilirubin 0.6H, Aspartate Amino Transf (AST/SGOT) 13, Alanine Aminotransferase (ALT/SGPT) 11, Alkaline Phosphatase 135, Lactate Dehydrogenase 264H, Total Protein 6.2L, Albumin 3.2, Homocysteine 10.6 12/28/19 03:35: White Blood Count 8.4, Red Blood Count 2.93L, Hemoglobin 8.0L, Hematocrit 26L, Mean Corpuscular Volume 88, Mean Corpuscular Hemoglobin 27, Mean Corpuscular Hemoglobin Concent 31L, Red Cell Distribution Width 15.3H, Platelet Count 269, Mean Platelet Volume 10.9H, Neutrophils (%) (Auto) 63, Lymphocytes (%) (Auto) 20, Monocytes (%) (Auto) 13H, Eosinophils (%) (Auto) 3, Basophils (%) (Auto) 1, Neutrophils # (Auto) 5.3, Lymphocytes # (Auto) 1.7, Monocytes # (Auto) 1.1H, Eo sinophils # (Auto) 0.3, Basophils # (Auto) 0.0, Sodium Level 141, Potassium Level 4.6, Chloride Level 118H, Carbon Dioxide Level 16L, Anion Gap 7, Blood Urea Nitrogen 29H, Creatinine 1.67H, Estimat Glomerular Filtration Rate 29, BUN/Creatinine Ratio 17, Glucose Level 84, Calcium Level 8.4L, Phosphorus Level 2.7, Magnesium Level 2.1 12/28/19 13:11: Lab Scanned Report Transfusion Reaction Form Microbiology 12/25/19 MRSA Screen - Final, Complete MRSA not isolated 12/25/19 Urine Culture - Final, Complete Escherichia coli 12/25/19 Blood Culture - Final, Complete Escherichia coli See Comments Pending Labs Microbiology Date/Time Source Procedure Growth Status 12/25/19 22:32 Nasal MRSA Screen - Final MRSA not isolated Complete 12/25/19 20:50 Urine Clean Catch Urine Culture - Final Escherichia coli Complete 12/25/19 20:30 Peripheral Rt Ac Blood Culture - Final Escherichia coli See Comments Complete 12/25/19 19:43 Peripheral Rt Ac Blood Culture - Final Escherichia coli See Comments Complete 12/25/19 19:40 Nasopharynx Influenza Types A,B Antigen (NAM) - Final Complete Laboratory Tests 12/25/19 19:43: White Blood Count 8.4, Red Blood Count 2.87, Hemoglobin 7.8, Hematocrit 25, Mean Corpuscular Volume 87, Mean Corpuscular Hemoglobin 27, Mean Corpuscular Hemoglobin Concent 31, Red Cell Distribution Width 15.2, Platelet Count 262, Mean Platelet Volume 10.8, Neutrophils (%) (Auto) 89, Lymphocytes (%) (Auto) 8, Monocytes (%) (Auto) 2, Eosinophils (%) (Auto) 1, Basophils (%) (Auto) 0, Neutrophils # (Auto) 7.5, Lymphocytes # (Auto) 0.7, Monocytes # (Auto) 0.1, Eosinophils # (Auto) 0.0, Basophils # (Auto) 0.0, Neutrophils % (Manual) 88, Lymphocytes % (Manual) 10, Monocytes % (Manual) 1, Eosinophils % (Manual) 1, Hypochromasia MODERATE, Blood Morphology Comment SEE REFERENCE, Prothrombin Time 14.2, INR Comment 1.1, Activated Partial Thromboplast Time 26, Sodium Level 134, Potassium Level 6.0, Chloride Level 108, Carbon Dioxide Level 15, Anion Gap 11, Blood Urea Nitrogen 58, Creatinine 2.69, Estimat Glomerular Filtration Rate 17, BUN/Creatinine Ratio 22, Glucose Level 157, Lactic Acid Level 1.04, Calcium Level 8.8, Corrected Calcium 9.0, Total Bilirubin 2.7, Aspartate Amino Transf (AST/SGOT) 12, Alanine Aminotransferase (ALT/SGPT) 10, Alkaline Phosphatase 162, Troponin I < 0.028, C-Reactive Protein High Sensitivity 17.05, Total Protein 6.9, Albumin 3.8, Procalcitonin 25.73 12/25/19 20:50: Urine Color YELLOW, Urine Clarity SL CLOUDY, Urine pH 6.0, Urine Specific [place] >=1.030, Urine Protein 2+, Urine Glucose (UA) NEGATIVE, Urine Ketones NEGATIVE, Urine Nitrite NEGATIVE, Urine Bilirubin NEGATIVE, Urine Urobilinogen 1.0, Urine Leukocyte Esterase 2+, Urine RBC (Auto) 1+, Urine RBC 2-5, Urine WBC TNTC, Urine Crystals NONE, Urine Bacteria LARGE, Urine Casts NONE, Urine Mucus NEGATIVE, Urine Culture Indicated CULTURE PENDING 12/26/19 03:30: White Blood Count 16.8, Red Blood Count 2.62, Hemoglobin 7.0, Hematocrit 23, Mean Corpuscular Volume 87, Mean Corpuscular Hemoglobin 27, Mean Corpuscular Hemoglobin Concent 31, Red Cell Distribution Width 15.1, Platelet Count 240, Mean Platelet Volume 10.8, Neutrophils (%) (Auto) 77, Lymphocytes (%) (Auto) 11, Monocytes (%) (Auto) 11, Eosinophils (%) (Auto) 0, Basophils (%) (Auto) 0, Neutrophils # (Auto) 13.0, Lymphocytes # (Auto) 1.9, Monocytes # (Auto) 1.9, Eosinophils # (Auto) 0.0, Basophils # (Auto) 0.0, Neutrophils % (Manual) 78, Lymphocytes % (Manual) 13, Monocytes % (Manual) 9, Sodium Level 137, Potassium Level 5.4, Chloride Level 114, Carbon Dioxide Level 13, Anion Gap 10, Blood Urea Nitrogen 54, Creatinine 2.39, Estimat Glomerular Filtration Rate 19, BUN/Creatinine Ratio 23, Glucose Level 178, Calcium Level 8.2, Corrected Calcium 8.7, Total Bilirubin 2.3, Aspartate Amino Transf (AST/SGOT) 12, Alanine Aminotransferase (ALT/SGPT) 9, Alkaline Phosphatase 138, Total Protein 6.3, Albumin 3.4, Phosphorus Level 3.3, Magnesium Level 2.0 12/26/19 13:50: Stool Occult Blood Immunoassay NEGATIVE 12/27/19 03:25: Sodium Level 139, Potassium Level 4.5, Chloride Level 117, Carbon Dioxide Level 17, Anion Gap 5, Blood Urea Nitrogen 41, Creatinine 1.96, Estimat Glomerular Mario tration Rate 24, BUN/Creatinine Ratio 21, Glucose Level 111, Calcium Level 7.9, Phosphorus Level 2.9, Magnesium Level 2.1 12/27/19 03:35: White Blood Count 10.3, Red Blood Count 2.01, Hemoglobin 6.2, Hematocrit 20, Mean Corpuscular Volume 88, Mean Corpuscular Hemoglobin 27, Mean Corpuscular Hemoglobin Concent 31, Red Cell Distribution Width 14.9, Platelet Count 236, Mean Platelet Volume 11.0, Neutrophils (%) (Auto) 75, Lymphocytes (%) (Auto) 13, Monocytes (%) (Auto) 11, Eosinophils (%) (Auto) 1, Basophils (%) (Auto) 0, Neutrophils # (Auto) 7.7, Lymphocytes # (Auto) 1.4, Monocytes # (Auto) 1.1, Eosinophils # (Auto) 0.1, Basophils # (Auto) 0.0, Absolute Reticulocyte Count 51, Percent Reticulocyte Count 2.54, Iron Level 17, Ferritin 199.4 12/27/19 12:02: Stool Occult Blood Immunoassay NEGATIVE 12/27/19 13:35: Sodium Level 142, Potassium Level 4.8, Chloride Level 117, Carbon Dioxide Level 18, Anion Gap 7, Blood Urea Nitrogen 37, Creatinine 1.88, Estimat Glomerular Filtration Rate 25, BUN/Creatinine Ratio 20, Glucose Level 98, Calcium Level 8.4, White Blood Count 11.2, Red Blood Count 2.79, Hemoglobin 7.8, Hematocrit 25, Mean Corpuscular Volume 89, Mean Corpuscular Hemoglobin 28, Mean Corpuscular Hemoglobin Concent 32, Red Cell Distribution Width 15.0, Platelet Count 260, Mean Platelet Volume 10.9, Neutrophils (%) (Auto) 76, Lymphocytes (%) (Auto) 13, Monocytes (%) (Auto) 10, Eosinophils (%) (Auto) 2, Basophils (%) (Auto) 0, Neutrophils # (Auto) 8.5, Lymphocytes # (Auto) 1.4, Monocytes # (Auto) 1.1, Eosinophils # (Auto) 0.2, Basophils # (Auto) 0.0, Iron Level 76, Ferritin 191.7, Corrected Calcium 9.0, Total Iron Binding Capacity 246, Unsaturated Iron Binding Capacity 170, Transferrin % Saturation 31, Total Bilirubin 1.4, Direct Bilirubin 0.6, Aspartate Amino Transf (AST/SGOT) 13, Alanine Aminotransferase (ALT/SGPT) 11, Alkaline Phosphatase 135, Lactate Dehydrogenase 264, Total Protein 6.2, Albumin 3.2, Methylmalonic Acid [Pending], Homocysteine 10.6, Cold Agglutinins [Pending] 12/28/19 03:35: White Blood Count 8.4, Red Blood Count 2.93, Hemoglobin 8.0, Hematocrit 26, Mean Corpuscular Volume 88, Mean Corpuscular Hemoglobin 27, Mean Corpuscular Hemoglobin Concent 31, Red Cell Distribution Width 15.3, Platelet Count 269, Mean Platelet Volume 10.9, Neutrophils (%) (Auto) 63, Lymphocytes (%) (Auto) 20, Monocytes (%) (Auto) 13, Eosinophils (%) (Auto) 3, Basophils (%) (Auto) 1, Neutrophils # (Auto) 5.3, Lymphocytes # (Auto) 1.7, Monocytes # (Auto) 1.1, Eosinophils # (Auto) 0.3, Basophils # (Auto) 0.0, Sodium Level 141, Potassium Level 4.6, Chloride Level 118, Carbon Dioxide Level 16, Anion Gap 7, Blood Urea Nitrogen 29, Creatinine 1.67, Estimat Glomerular Filtration Rate 29, BUN/Creatinine Ratio 17, Glucose Level 84, Calcium Level 8.4, Phosphorus Level 2.7, Magnesium Level 2.1 12/28/19 13:11: Lab Scanned Report Transfusion Reaction Form Discharge Home Medications: Active Scripts Active Reported Hydroxyzine HCl 25 Mg Tablet 25 Mg PO Q6H PRN Alprazolam 0.25 Mg Tablet 0.25 Mg PO TID PRN Montelukast Sodium 10 Mg Tablet 10 Mg PO HS Trelegy Ellipta 100-62.5-25 (Fluticasone/Umeclidin/Vilanter) 1 Each Blst.w.dev 1 Puff INH DAILY Ventolin Hfa (Albuterol Sulfate) 18 Gm Hfa.aer.ad 2 Puff INH Q4H PRN Pantoprazole Sodium 40 Mg Tablet.dr 40 Mg PO DAILY Salonpas Patch (Methyl Salicylate/Menthol) 1 Each Adh..patch 1 Patch TP HS Ondansetron Odt (Ondansetron) 4 Mg Tab.rapdis 4 Mg PO Q4H PRN Tramadol HCl 50 Mg Tablet 50 Mg PO Q4H PRN Hydrocodone-Acetamin 5-325 mg (Hydrocodone/Acetaminophen) 1 Each Tablet 1 Tab PO BID PRN Fexofenadine HCl 180 Mg Tablet 180 Mg PO DAILY PRN Acid Third Rigger (RANITIDINE) (Ranitidine HCl) 150 Mg Tablet 150 Mg PO BID PRN Pravastatin Sodium 20 Mg Tablet 20 Mg PO DAILY Losartan Potassium 50 Mg Tablet 50 Mg PO DAILY Aspirin EC (Aspirin) 81 Mg Tablet.dr 81 Mg PO DAILY Amlodipine Besylate 5 Mg Tablet 7.5 Mg PO DAILY TAKES 1 & 1/2 (5MG) TABLET Instructions to patient/family Please see electronic discharge instructions given to patient. Diagnosis/Problems Diagnosis/Problems (1) Sepsis Status: Acute Qualifiers: Qualified Codes: A41.9 - Sepsis, unspecified organism (2) UTI (urinary tract infection) (3) History of coronary artery stent placement Status: Chronic (4) Chronic anemia Status: Chronic (5) Generalized pain Status: Acute (6) Acute kidney failure Status: Acute Qualifiers: Qualified Codes: N17.9 - Acute kidney failure, unspecified (7) Urinary tract infection Status: Acute Qualifiers: Qualified Codes: N39.0 - Urinary tract infection, site not specified (8) Nausea and vomiting Status: Acute Qualifiers: Qualified Codes: R11.2 - Nausea with vomiting, unspecified (9) CAD (coronary artery disease) (10) Gout Status: Chronic (11) Hyperlipidemia Status: Chronic (12) COPD (chronic obstructive pulmonary disease) Status: Chronic (13) Radiculopathy (14) Dysphagia (15) Neuropathy Status: Acute (16) Hyperkalemia Status: Acute Clinical Quality Measures DVT/VTE Risk/Contraindication: Risk Factor Score Per Nursin RFS Level Per Nursing on Admit: 4+=Very High TAHIR MARTINEZ DO Dec 28, 2019 09:52
--- NOTE | 2019-12-28 10:43 | Progress Note - Surgery ---
[facility]ON[facility] 12/28/19 1043: Subjective Date Seen by a Provider: Dec 28, 2019 Time Seen by a Provider: 08:55 Subjective/Events-last exam Pt feeling well this AM. Denies any pain, N/V, Constipation, diarrhea, or any other sx. Reports being able to tolerate small amounts of food at a time. No complaints reported at this time. Review of Systems Pt refused to be evaluated Focused Exam Lactate Level 12/25/19 19:43: Lactic Acid Level 1.04 Objective Exam Vital Signs Date Time Temp Pulse Resp B/P (MAP) Pulse Ox O2 Delivery O2 Flow Rate FiO2 12/28/19 09:18 96 Nasal Cannula 2.00 12/28/19 09:00 97 Nasal Cannula 2.00 12/28/19 08:00 85 14 136/50 (78) 95 Nasal Cannula 2.00 12/28/19 08:00 36.8 12/28/19 07:00 81 12/28/19 06:38 92 Nasal Cannula 2.00 12/28/19 04:26 93 Nasal Cannula 2.00 12/28/19 04:00 70 25 155/77 (103) 94 Nasal Cannula 2.00 12/28/19 03:53 36.6 12/28/19 01:49 Nasal Cannula 2.00 12/28/19 01:00 64 12/28/19 00:00 67 25 137/57 (83) 92 NIV Bilevel 2.00 12/27/19 23:51 35.9 12/27/19 22:13 NIV Bilevel 2.00 12/27/19 22:02 93 Nasal Cannula 2.00 12/27/19 20:08 96 Nasal Cannula 2.00 12/27/19 20:00 87 32 161/73 (102) 95 Nasal Cannula 2.00 12/27/19 20:00 37.2 12/27/19 19:00 70 12/27/19 16:00 36.8 12/27/19 16:00 72 135/58 (83) 96 Nasal Cannula 2.00 12/27/19 14:35 96 Nasal Cannula 2.00 12/27/19 13:00 67 12/27/19 12:19 36.8 12/27/19 12:00 78 35 151/68 (95) 96 Nasal Cannula 2.00 I & O 12/28/19 07:00 Intake Total 3125 ml Output Total 2475 ml Balance 650 ml Capillary Refill : Less Than 3 Seconds General Appearance: No Apparent Distress, WD/WN HEENT: PERRL/EOMI, Normal ENT Inspection Neck: Full Range of Motion, Normal Inspection, Non Tender Respiratory: Chest Non Tender, No Accessory Muscle Use, No Respiratory Distress Cardiovascular: No Murmur, Other (irregular, pt has occasional PACs ) Gastrointestinal: non tender, soft; No distended, No guarding, No rebound Extremity: Normal Inspection, Non Tender, Other (left lower extremity bruising) Neurologic/Psychiatric: Alert, Oriented x3, No Motor/Sensory Deficits, Normal Mood/Affect, waterproof bag sewer II-XII Norm as Tested Skin: Normal Color, Warm/Dry, Ecchymosis (lle) Lymphatic: No Adenopathy Results Lab Laboratory Tests 12/27/19 12:02: Stool Occult Blood Immunoassay NEGATIVE 12/27/19 13:35: White Blood Count 11.2H, Red Blood Count 2.79L, Hemoglobin 7.8#L, Hematocrit 25L , Mean Corpuscular Volume 89, Mean Corpuscular Hemoglobin 28, Mean Corpuscular Hemoglobin Concent 32, Red Cell Distribution Width 15.0H, Platelet Count 260, Mean Platelet Volume 10.9H, Neutrophils (%) (Auto) 76H, Lymphocytes (%) (Auto) 13, Monocytes (%) (Auto) 10, Eosinophils (%) (Auto) 2, Basophils (%) (Auto) 0, Neutrophils # (Auto) 8.5H, Lymphocytes # (Auto) 1.4, Monocytes # (Auto) 1.1H, Eosinophils # (Auto) 0.2, Basophils # (Auto) 0.0, Sodium Level 142, Potassium Level 4.8, Chloride Level 117H, Carbon Dioxide Level 18L, Anion Gap 7, Blood Urea Nitrogen 37H, Creatinine 1.88H, Estimat Glomerular Filtration Rate 25, BUN/Creatinine Ratio 20, Glucose Level 98, Calcium Level 8.4L, Corrected Calcium 9.0, Iron Level 76, Total Iron Binding Capacity 246L, Unsaturated Iron Binding Capacity 170, Transferrin % Saturation 31, Ferritin 191.7H, Total Bilirubin 1.4H , Direct Bilirubin 0.6H, Aspartate Amino Transf (AST/SGOT) 13, Alanine Aminotransferase (ALT/SGPT) 11, Alkaline Phosphatase 135, Lactate Dehydrogenase 264H, Total Protein 6.2L, Albumin 3.2, Homocysteine 10.6 12/28/19 03:35: White Blood Count 8.4, Red Blood Count 2.93L, Hemoglobin 8.0L, Hematocrit 26L, Mean Corpuscular Volume 88, Mean Corpuscular Hemoglobin 27, Mean Corpuscular Hemoglobin Concent 31L, Red Cell Distribution Width 15.3H, Platelet Count 269, Mean Platelet Volume 10.9H, Neutrophils (%) (Auto) 63, Lymphocytes (%) (Auto) 20, Monocytes (%) (Auto) 13H, Eosinophils (%) (Auto) 3, Basophils (%) (Auto) 1, Neutrophils # (Auto) 5.3, Lymphocytes # (Auto) 1.7, Monocytes # (Auto) 1.1H, Eosinophils # (Auto) 0.3, Basophils # (Auto) 0.0, Sodium Level 141, Potassium Level 4.6, Chloride Level 118H, Carbon Dioxide Level 16L, Anion Gap 7, Blood Urea Nitrogen 29H, Creatinine 1.67H, Estimat Glomerular Filtration Rate 29, BUN/Creatinine Ratio 17, Glucose Level 84, Calcium Level 8.4L, Phosphorus Level 2.7, Magnesium Level 2.1 Microbiology 12/25/19 MRSA Screen - Final, Complete MRSA not isolated 12/25/19 Urine Culture - Final, Complete Escherichia coli 12/25/19 Blood Culture - Final, Complete Escherichia coli See Comments Assessment/Plan Assessment/Plan Assessment/Plan UTI sepsis Rigors and body aches Anemia Dysphagia HTN 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 History of severe gastritis, Watermelon stomach, small hiatal hernia Dr. Tucker was consulted regarding anemia, labs pending continue protonix/carafate Hb improved after blood transfusion Eat small, but frequent meals No further surgical interventions indicated at this time. Will sign off. Will be happy to consult again if need be. Clinical Quality Measures DVT/VTE Risk/Contraindication: Risk Factor Score Per Nursin RFS Level Per Nursing on Admit: 4+=Very High BENTLEY TAYLOR DO 12/28/19 1107: Subjective Subjective/Events-last exam Feeling better. Hgb improved. Tolerating liquids. Not having dysphagia at this time. Denies n/v fever sweats chills shortness of breath or chest pain. Objective Exam General Appearance: No Apparent Distress, WD/WN HEENT: PERRL/EOMI Neck: Full Range of Motion, Normal Inspection, Non Tender Respiratory: Chest Non Tender, No Accessory Muscle Use, No Respiratory Distress Cardiovascular: Regular Rate, Rhythm Gastrointestinal: non tender, soft; No distended, No guarding, No rebound Extremity: Normal Inspection, Non Tender, Other (left lower extremity bruising) Neurologic/Psychiatric: Alert, Oriented x3, No Motor/Sensory Deficits, Normal Mood/Affect, waterproof bag sewer II-XII Norm as Tested Skin: Normal Color, Warm/Dry, Ecchymosis (lle) Lymphatic: No Adenopathy Assessment/Plan Assessment/Plan Assessment/Plan Anemia Dysphagia HTN 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 History of severe gastritis, Watermelon stomach, small hiatal hernia hgb stable did receive transfusion. patient tolerating liquids, can advance follow hgb on protonix/carafate will sign off call if needed. Supervisory-Addendum Brief Verification & Attestation Participated in pt care: history, MDM, physical Personally performed: exam, history, MDM, supervision of care Care discussed with: Medical Student Procedures: n/a Results interpretation: Verified all documentation Verification and Attestation of Medical Student E/M Service A medical student performed and documented this service in my presence. I reviewed and verified all information documented by the medical student and made modifications to such information, when appropriate. I personally performed the physical exam and medical decision making. Bentley Taylor, Dec 28, 2019,11:07 [facility] Dec 28, 2019 10:43 BENTLEY TAYLOR DO Dec 28, 2019 11:07
[2019-12-28] MEDS ORDERED: FUROSEMIDE 40 MG/4 ML INJ (LASIX) ONE (13:25)
--- NOTE | 2019-12-28 15:12 | Cardiology Progress Note ---
Subjective Date Seen by Provider: Dec 28, 2019 Time Seen by Provider: 08:00 Subjective/Events-last exam Patient was seen at bedside, reporting improvement in her symptoms. No chest pain was reported, still having some chills Review of Systems General: Chills; No Night Sweats, No Fatigue, No Malaise, No Appetite, No Other Pulmonary: Dyspnea; No Cough, No Pleuritic Chest Pain, No Other Cardiovascular: No: Chest Pain, Palpitations, Orthopnea, Paroxysmal Noc. Dyspnea, Edema, Lt Headedness, Other Focused Exam Lactate Level 12/25/19 19:43: Lactic Acid Level 1.04 Objective-Cardiology Exam Last Set of Vital Signs Vital Signs 12/26/19 12/28/19 12/28/19 00:07 08:00 09:18 Temp 36.8 Pulse 85 Resp 14 B/P (MAP) 136/50 (78) Pulse Ox 96 O2 Delivery Nasal Cannula O2 Flow Rate 2.00 FiO2 21 Capillary Refill : Less Than 3 Seconds I&O Intake and Output 12/28/19 00:00 Intake Total 3125 ml Output Total 2075 ml Balance 1050 ml Intake Oral 1025 ml IV Total 2100 ml Output Urine Total 2075 ml # Bowel Movements 1 General: Alert, Oriented X3, Cooperative, No Acute Distress HEENT: Atraumatic Neck: Supple, No JVD, No Thyromegaly Lungs: Clear to Auscultation, Normal Air Movement Heart: Regular Rate, Normal S1, Normal S2, No Murmurs Abdomen: Normal Bowel Sounds, Soft, No Tenderness, No Hepatosplenomegaly, No Masses Extremities: No Clubbing, No Cyanosis, No Edema, Normal Pulses, No Tend erness/Swelling Skin: No Rashes, No Breakdown, No Significant Lesion Neuro: Normal Gait, Normal Speech, Strength at 5/5 X4 Ext, Normal Tone Psych/Mental Status: Mental Status NL, Mood NL Results Lab Laboratory Tests 12/28/19 03:35 A/P-Cardiology Admission Diagnosis Sepsis Urinary tract infection Chest pain Coronary artery disease Assessment/Plan Sepsis with UTI, receiving antibiotic, managed by primary care team Chest pain, generalized body ache, history of gjrp-ds-jrzdicms coronary artery disease, no further episodes of chest pain were reported. Continue to monitor Dyspnea, history of bronchial asthma, has history of gastroesophageal reflux disease Coronary artery disease, history of stent to the LAD, cardiac catheterization March 2013 showing patent stents in the proximal LAD with mild in-stent restenosis,mild to moderate disease in the mid LAD and mid circumflex artery, had history of abnormal stress test in the past and was refusing cardiac catheterization. History of gastroesophageal reflux disease, esophagitis, mild dysphagia, esophageal spasm, managed by primary care team Hypertension, monitor blood pressure History of hyperlipidemia, monitor lipids Moderate carotid stenosis tortuous carotids by ultrasound, continue to monitor Acute on chronic renal failure, improving slowly, continue on IV fluid and monitor closely. History of chronic anemia, H&H are worse today, receiving one unit of packed RBCs, continue to monitor Clinical Quality Measures DVT/VTE Risk/Contraindication: Risk Factor Score Per Nursin RFS Level Per Nursing on Admit: 4+=Very High ELO HOLBROOK MD Dec 28, 2019 15:12
[2019-12-29] MEDS ORDERED: ASPIRIN 81 MG CHEW (CHILDREN'S ASA) PO SCH (09:00)
--- OUTSIDE RECORDS SUMMARY | 2019-12-31 20:53 | XMS REPORT | Continuity of Care Document ---
Author Organization Unknown Address Unknown Phone Unavailable Allergies Active Description Code Type Severity Reaction Onset Reported/Identified Relationship to Patient Clinical Status Yes aspirin [id number] Drug Allergy Mild N/A 02/07/2010 Yes oxycodone [id number] Drug Allergy Mild N/A 02/07/2010 Yes rofecoxib [id number] Drug Allergy Mild N/A 02/07/2010 Yes codeine [id number] Drug Allergy Mild N/A 12/25/2019 Medications There is no data. Problems Date Dx Coded Attending Type Code Diagnosis Diagnosed By 10/21/1152 TAHIR MARTINEZ DO Ot M54.41 LUMBAGO WITH SCIATICA, RIGHT SIDE 10/21/1152 TAHIR MARTINEZ DO Ot M54.42 LUMBAGO WITH SCIATICA, LEFT SIDE 07/21/2010 Ot 726.0 07/21/2010 Ot V57.1 09/18/2011 Ot 787.20 09/18/2011 Ot V45.89 12/03/[address] PAIN NOS 12/03/2012 Ot 786.52 ROGER NFUL RESPIRATION 04/07/2013 ELO HOLBROOK MD Ot 272. 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 01 CORONARY ATHEROSCLEROSIS OF [place] CORON 04/07/2013 ELO HOLBROOK MD Ot 414. 4 CORONARY ATHEROSCLEROSIS DUE TO CALCIFIE 04/07/2013 ELO HOLBROOK MD Ot 585. 9 CHRONIC KIDNEY DISEASE, UNSPECIFIED 04/07/2013 ELO HOLBROOK MD Ot 715. 90 OSTEOARTHROS NOS-UNSPEC 04/07/2013 ELO HOLBROOK MD Ot 794. 30 ABN CARDIOVASC STUDY NOS 04/07/2013 ELO HOLBROOK MD Ot V45. 82 PERCUTANEOUS TRANSLUM CORON ANGIOPLASTY 04/07/2013 ELO HOLBROOK MD Ot V58. 66 LONG-TERM (CURRENT) USE OF ASPIRIN 04/07/2013 ELO HOLBROOK MD Ot V58. 69 OTH MED,LT,CURRENT USE 05/24/2013 ROSIE SUAREZ MD Ot 041. 49 OTHER AND UNSPECIFIED ESCHERICHIA COLI [ 05/24/2013 REVEAL ROSIE BETHEA Ot 272. 0 PURE HYPERCHOLESTEROLEM 05/24/2013 ROSIE SUAREZ MD Ot 272. 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 81 ESOPHAGEAL REFLUX 05/24/2013 ROSIE SUAREZ MD Ot 585. 4 CHRONIC KIDNEY DISEASE, STAGE IV (SEVERE 05/24/2013 ROSIE SUAREZ MD Ot 599. 0 URIN TRACT INFECTION NOS 05/24/2013 ROSIE SUAREZ MD Ot 715. 36 LOC OSTEOARTH NOS-L/LEG 05/24/2013 ROSIE SUAREZ MD Ot V15. 82 HISTORY OF TOBACCO USE 05/24/2013 ROSIE SUAREZ MD Ot V45. 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 DIS, UNSPEC, W CHR KD ST 05/31/2013 SHEREEN SMITH MD Ot 414.0 1 CORONARY ATHEROSCLEROSIS OF [place] CORON 05/31/2013 SHEREEN SMITH MD Ot 496 CHR AIRWAY OBSTRUCT NEC 05/31/2013 SHEREEN SMITH MD Ot 564.0 0 UNSPEC CONSTIPATION 05/31/2013 SHEREEN SMITH MD Ot 585.4 CHRONIC KIDNEY DISEASE, STAGE IV (SEVERE 05/31/2013 SHEREEN SMITH MD Ot V43.6 5 KNEE JOINT REPLACEMENT STATUS 05/31/2013 SHEREEN SMITH MD Ot V45.8 2 PERCUTANEOUS TRANSLUM CORON ANGIOPLASTY 05/31/2013 SHEREEN SMITH MD Ot V54.8 1 AFTERCARE FOLLOWING JOINT REPLACEMENT 05/31/2013 SEHREEN SMITH MD Ot V57.8 9 REHABILITATION PROC NEC 06/26/2013 ROSIE SUAREZ MD Ot V43. 65 KNEE JOINT REPLACEMENT STATUS 06/26/2013 ROSIE SUAREZ MD Ot V54. 81 AFTERCARE FOLLOWING JOINT REPLACEMENT 06/26/2013 ROSIE SUAREZ MD Ot V57. 1 PHYSICAL THERAPY NEC 04/20/2014 BENTLEY VEGA DO Ot 530. 10 ESOPHAGITIS NOS 04/20/2014 BENTLEY VEGA DO Ot 535. 50 UNSP GASTRITIS GASTRODUODENITIS W/O ME 11/01/2014 Ot 786.2 11/01/2014 TAHIR MARTINEZ DO Ot 493.90 11/01/2014 ELO HOLBROOK MD Ot 414. 00 11/01/2014 ELO HOLBROOK MD Ot 786. 50 11/01/2014 ELO HOLBROOK MD Ot V72. 81 11/01/2014 ROSIE SUAREZ MD Ot 715. 36 11/01/2014 ROSIE SUAREZ MD Ot 791. 9 11/01/2014 ROSIE SUAREZ MD Ot V72. 63 11/01/2014 ROSIE SUAREZ MD Ot V74. 8 11/01/2014 BENTLEY VEGA DO Ot V72. 84 11/01/2014 BENTLEY VEGA DO Ot V72. 84 11/02/2014 JUAN DUKES TAHIR Ot 272.4 HYPERLIPIDEMIA NEC/NOS 11/02/2014 JUAN DUKES TAHIR Ot 276.7 HYPERPOTASSEMIA 11/02/2014 JUAN DUKES TAHIR Ot 285.21 ANEMIA IN CHRONIC KIDNEY DISEASE 11/02/2014 JUAN DUKES TAHIR Ot 403.90 HYPTNSV CHR KID DIS, UNSPEC, W CHR KD ST 11/02/2014 JUAN DUKES TAHIR Ot 414.01 CORONARY ATHEROSCLEROSIS OF [place] CORON 11/02/2014 JUAN DUKES TAHIR Ot 491.21 OBSTR CHRONIC BRONCHITIS, W (ACUTE) EXAC 11/02/2014 MARTINEZ DO, TAHIR Ot 585.4 CHRONIC KIDNEY DISEASE, STAGE IV (SEVERE 11/02/2014 MARTINEZ DO, TAHIR Ot 786.50 CHEST PAIN NOS 11/02/2014 MARTINEZ DO, TAHIR Ot V43.65 KNEE JOINT REPLACEMENT STATUS 11/02/2014 MARTINEZ DO, TAHIR Ot 272.4 11/02/2014 MARTINEZ DO, TAHIR Ot 276.7 11/02/2014 MARTINEZ DO, TAHIR Ot 285.21 11/02/2014 MARTINEZ DO, TAHIR Ot 403.90 11/02/2014 MARTINEZ DO, TAHIR Ot 414.01 11/02/2014 MARTINEZ DO, TAHIR Ot 491.21 11/02/2014 MARTINEZ DO, TAHIR Ot 585.4 11/02/2014 MARTINEZ DO, TAHIR Ot 786.50 11/02/2014 MARTINEZ DO, TAHIR Ot V43.65 04/22/2015 MARTINEZ DO, TAHIR Ot 443.9 05/15/2015 MARTINEZ DO, TAHIR Ot 443.9 05/19/2015 NANI BETHEA, NINA Gomez Ot 599. 0 URIN TRACT INFECTION NOS 05/19/2015 NINA CARDOZA MD Ot 788. 41 URINARY FREQUENCY 09/12/2015 MARTINEZ DO, TAHIR Ot 276.51 09/12/2015 MARTINEZ DO, TAHIR Ot 496 09/12/2015 MARTINEZ DO, TAHIR Ot 585.3 09/12/2015 MARTINEZ DO, TAHIR Ot 780.61 10/21/2015 MERRY BETHEA, FRANKLIN Becerra Ot D63.1 10/21/2015 MERRY BETHEA, FRANKLIN Becerra Ot E78.5 10/21/2015 MERRY BETHEA, FRANKLIN Becerra Ot I12.9 10/21/2015 MERRY BETHEA, FRANKLIN Becerra Ot I25.10 10/21/2015 MERRY BETHEA, FRANKLIN Becerra Ot J44.9 10/21/2015 MERRY BETHEA, FRANKLIN Becerra Ot K21.9 10/21/2015 MERRY BETHEA, FRANKLIN Becerra Ot M12.9 10/21/2015 MERRY BETHEA, FRANKLIN Becerra Ot N18.4 12/10/2015 MERRY BETHEA, FRANKLIN Becerra Ot D63.1 ANEMIA IN CHRONIC KIDNEY DISEASE 12/10/2015 MERRY BETHEA, FRANKLIN Becerra Ot E78.5 HYPERLIPIDEMIA, UNSPECIFIED 12/10/2015 MERRY BETHEA, FRANKLIN Becerra Ot I12.9 HYPERTENSIVE CHRONIC KIDNEY DISEASE W ST 12/10/2015 MERRY BETHEA, FRANKLIN Becerra Ot I25.10 ATHSCL HEART DISEASE OF [place] CORONARY 12/10/2015 MERRY BETHEA, FRANKLIN Becerra Ot J44.9 CHRONIC OBSTRUCTIVE PULMONARY DISEASE, U 12/10/2015 MERRY BETHEA, FRANKLIN Becerra Ot K21.9 GASTRO-ESOPHAGEAL REFLUX DISEASE WITHOUT 12/10/2015 FRANKLIN SOUSA MD Ot M12.9 ARTHROPATHY, UNSPECIFIED 12/10/2015 MERRY BETHEA, FRANKLIN Becerra Ot N18.4 CHRONIC KIDNEY DISEASE, STAGE 4 (SEVERE) 04/28/2016 Ot 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 04/28/2016 Ot E78.5 HYPE RLIPIDEMIA, UNSPECIFIED 04/28/2016 Ot 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 04/28/2016 Ot I25.10 ATH SCL HEART DISEASE OF [place] CORONARY 04/28/2016 Ot 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 00 CORON ATHEROSCLER NOS TYPE VESSEL, NATIV 01/28/2018 YUSEF BETHEA, ELO Gregory Ot 786. 50 CHEST PAIN NOS 01/28/2018 ELO HOLBROOK MD Ot V72. 81 [id number] CARDIOVASCULAR 01/28/2018 ROSIE SUAREZ MD Ot 715. 36 LOC OSTEOARTH NOS-L/LEG 01/28/2018 ROSIE SUAREZ MD Ot 791. 9 ABN URINE FINDINGS NEC 01/28/2018 ROSIE SUAREZ MD Ot V72. 63 PRE-PROCEDURAL LABORATORY EXAMINATION 01/28/2018 ROSIE SUAREZ MD Ot V74. 8 SCREEN-BACTERIAL DIS NEC 01/28/2018 BENTLEY VEGA DO Ot V72. 84 EXAM PRE-OPERATIVE NOS 01/28/2018 BENTLEY VEGA DO Ot V72. 84 EXAM PRE-OPERATIVE NOS 01/28/2018 TAHIR MARTINEZ DO Ot 443.9 PERIPH VASCULAR DIS NOS 01/28/2018 TAHIR MARTINEZ DO Ot 276.51 DEHYDRATION 01/28/2018 TAHIR MARTINEZ DO Ot 496 CHR AIRWAY OBSTRUCT NEC 01/28/2018 TAHIR MARTINEZ DO Ot 585.3 CHRONIC KIDNEY DISEASE, STAGE III (MODER 01/28/2018 TAHIR MARTINEZ DO Ot 780.61 FEVER PRESENTING WITH CONDITIONS CLASSIF 01/28/2018 Ot 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 01/28/2018 Ot E78.5 HYPE RLIPIDEMIA, UNSPECIFIED 01/28/2018 Ot 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 01/28/2018 Ot I25.10 ATH SCL HEART DISEASE OF [place] CORONARY 01/28/2018 Ot 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 5 HYPERLIPIDEMIA, UNSPECIFIED 02/17/2018 ELO HOLBROOK MD Ot I10 ESSENTIAL (PRIMARY) HYPERTENSION 02/17/2018 ELO HOLBROOK MD Ot I25. 10 ATHSCL HEART DISEASE OF [place] CORONARY 02/17/2018 ELO HOLBROOK MD Ot R07. 89 OTHER CHEST PAIN 03/08/2018 TAHIR MARTINEZ DO Ot R06.2 WHEEZING 03/08/2018 BENTLEY VEGA DO Ot K21. 9 GASTRO-ESOPHAGEAL REFLUX DISEASE WITHOUT 03/08/2018 BENTLEY VEGA DO Ot R13. 10 DYSPHAGIA, UNSPECIFIED 03/08/2018 BENTLEY VEGA DO Ot Z01.818 ENCOUNTER FOR OTHER PREPROCEDURAL EXAMIN 03/10/2018 TAHIR MARTINEZ DO Ot 493.90 ASTHMA, UNSPECIFIED 03/10/2018 ELO HOLBROOK MD Ot 414. 00 CORON ATHEROSCLER NOS TYPE VESSEL, NATIV 03/10/2018 ELO HOLBROOK MD Ot 786. 50 CHEST PAIN NOS 03/10/2018 ELO HOLBROOK MD Ot V72. 81 [id number] CARDIOVASCULAR 03/10/2018 REVEAL ROSIE BETHEA Ot 715. 36 LOC OSTEOARTH NOS-L/LEG 03/10/2018 REVEAL ROSIE BETHEA Ot 791. 9 ABN URINE FINDINGS NEC 03/10/2018 ROSIE SUAREZ MD Ot V72. 63 PRE-PROCEDURAL LABORATORY EXAMINATION 03/10/2018 ROSIE SUAREZ MD Ot V74. 8 SCREEN-BACTERIAL DIS NEC 03/10/2018 BENTLEY VEGA DO Ot V72. 84 EXAM PRE-OPERATIVE NOS 03/10/2018 BENTLEY VEGA DO Ot V72. 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 03/10/2018 TAHIR MARTINEZ DO Ot 276.51 DEHYDRATION 03/10/2018 TAHIR MARTINEZ DO Ot 496 CHR AIRWAY OBSTRUCT NEC 03/10/2018 TAHIR MARTINEZ DO Ot 585.3 CHRONIC KIDNEY DISEASE, STAGE III (MODER 03/10/2018 TAHIR MARTINEZ DO Ot 780.61 FEVER PRESENTING WITH CONDITIONS CLASSIF 03/10/2018 Ot 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 03/10/2018 Ot E78.5 HYPE RLIPIDEMIA, UNSPECIFIED 03/10/2018 Ot 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 03/10/2018 Ot I25.10 ATH SCL HEART DISEASE OF [place] CORONARY 03/10/2018 Ot 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 5 HYPERLIPIDEMIA, UNSPECIFIED 03/10/2018 ELO HOLBROOK MD Ot I10 ESSENTIAL (PRIMARY) HYPERTENSION 03/10/2018 ELO HOLBROOK MD Ot I25. 10 ATHSCL HEART DISEASE OF [place] CORONARY 03/10/2018 ELO HOLBROOK MD Ot R07. 89 OTHER CHEST PAIN 03/11/2018 ELO HOLBROOK MD Ot E78. 5 HYPERLIPIDEMIA, UNSPECIFIED 03/11/2018 ELO HOLBROOK MD Ot I10 ESSENTIAL (PRIMARY) HYPERTENSION 03/11/2018 ELO HOLBROOK MD Ot I25. 10 ATHSCL HEART DISEASE OF [place] CORONARY 03/11/2018 ELO HOLBROOK MD Ot R07. 89 OTHER CHEST PAIN 03/15/2018 BENTLEY VEGA DO Ot E78. 5 HYPERLIPIDEMIA, UNSPECIFIED 03/15/2018 BENTLEY VEGA DO Ot I08. 3 COMB RHEUMATIC DISORD OF MITRAL, AORTIC 03/15/2018 BENTLEY VEGA DO Ot I10 ESSENTIAL (PRIMARY) HYPERTENSION 03/15/2018 BENTLEY VEGA DO Ot I25. 10 ATHSCL HEART DISEASE OF [place] CORONARY 03/15/2018 BENTLEY VEGA DO Ot J44. 9 CHRONIC OBSTRUCTIVE PULMONARY DISEASE, U 03/15/2018 BENTLEY VEGA DO Ot J45.909 UNSPECIFIED ASTHMA, UNCOMPLICATED 03/15/2018 BENTLEY VEGA DO Ot K21. 9 GASTRO-ESOPHAGEAL REFLUX DISEASE WITHOUT 03/15/2018 BENTLEY VEGA DO Ot K25. 9 GASTRIC ULCER, UNSP ACUTE OR CHRONIC, 03/15/2018 BENTLEY VEGA DO Ot K44. 9 DIAPHRAGMATIC HERNIA WITHOUT OBSTRUCTION 03/15/2018 BENTLEY VEGA DO Ot M19. 91 PRIMARY OSTEOARTHRITIS, UNSPECIFIED SITE 03/15/2018 BENTLEY VEGA DO Ot N28. 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 5 HYPERLIPIDEMIA, UNSPECIFIED 03/15/2018 ELO HOLBROOK MD Ot I10 ESSENTIAL (PRIMARY) HYPERTENSION 03/15/2018 ELO HOLBROOK MD Ot I25. 10 ATHSCL HEART DISEASE OF [place] CORONARY 03/15/2018 ELO HOLBROOK MD Ot R07. 89 OTHER CHEST PAIN 03/16/2018 BENTLEY VEGA DO Ot E78. 5 HYPERLIPIDEMIA, UNSPECIFIED 03/16/2018 BENTLEY VEGA DO Ot I08. 3 COMB RHEUMATIC DISORD OF MITRAL, AORTIC 03/16/2018 BENTLEY VEGA DO Ot I10 ESSENTIAL (PRIMARY) HYPERTENSION 03/16/2018 BENTLEY VEGA DO Ot I25. 10 ATHSCL HEART DISEASE OF [place] CORONARY 03/16/2018 BENTLEY VEGA DO Ot J44. 9 CHRONIC OBSTRUCTIVE PULMONARY DISEASE, U 03/16/2018 BENTLEY VEGA DO Ot J45.909 UNSPECIFIED ASTHMA, UNCOMPLICATED 03/16/2018 BENTLEY VEGA DO Ot K21. 9 GASTRO-ESOPHAGEAL REFLUX DISEASE WITHOUT 03/16/2018 BENTLEY VEGA DO Ot K25. 9 GASTRIC ULCER, UNSP ACUTE OR CHRONIC, 03/16/2018 BENTLEY VEGA DO Ot K44. 9 DIAPHRAGMATIC HERNIA WITHOUT OBSTRUCTION 03/16/2018 BENTLEY VEGA DO Ot M19. 91 PRIMARY OSTEOARTHRITIS, UNSPECIFIED SITE 03/16/2018 BENTLEY VEGA DO Ot N28. 9 DISORDER OF KIDNEY AND URETER, UNSPECIFI 03/16/2018 BENTLEY VEGA DO Ot Z79. 82 ALF (CURRENT) USE OF ASPIRIN 03/16/2018 BENTLEY VEGA DO Ot Z79.899 OTHER SUPER[employer] (CURRENT) DRUG THERAPY 03/16/2018 BENTLEY VEGA DO Ot Z87.891 PERSONAL HISTORY OF NICOTINE DEPENDENCE 03/16/2018 BENTLEY VEGA DO Ot Z96.653 PRESENCE OF ARTIFICIAL KNEE JOINT, BILAT 03/16/2018 BENTLEY VEGA DO Ot E78. 5 HYPERLIPIDEMIA, UNSPECIFIED 03/16/2018 BENTLEY VEGA DO Ot I08. 3 COMB RHEUMATIC DISORD OF MITRAL, AORTIC 03/16/2018 BENTLEY VEGA DO Ot I10 ESSENTIAL (PRIMARY) HYPERTENSION 03/16/2018 BENTLEY VEGA DO Ot I25. 10 ATHSCL HEART DISEASE OF [place] CORONARY 03/16/2018 BENTLEY VEGA DO Ot J44. 9 CHRONIC OBSTRUCTIVE PULMONARY DISEASE, U 03/16/2018 BENTLEY VEGA DO Ot J45.909 UNSPECIFIED ASTHMA, UNCOMPLICATED 03/16/2018 BENTLEY VEGA DO Ot K21. 9 GASTRO-ESOPHAGEAL REFLUX DISEASE WITHOUT 03/16/2018 BENTLEY VEGA DO Ot K25. 9 GASTRIC ULCER, UNSP ACUTE OR CHRONIC, 03/16/2018 BENTLEY VEGA DO Ot K44. 9 DIAPHRAGMATIC HERNIA WITHOUT OBSTRUCTION 03/16/2018 BENTLEY VEGA DO Ot M19. 91 PRIMARY OSTEOARTHRITIS, UNSPECIFIED SITE 03/16/2018 BENTLEY VEGA DO Ot N28. 9 DISORDER OF KIDNEY AND URETER, UNSPECIFI 03/16/2018 BENTLEY VEGA DO Ot Z79. 82 ALF (CURRENT) USE OF ASPIRIN 03/16/2018 BENTLEY VEGA DO Ot Z79.899 OTHER SUPERVIS[employer] (CURRENT) DRUG THERAPY 03/16/2018 BENTLEY VEGA DO Ot Z87.891 PERSONAL HISTORY OF NICOTINE DEPENDENCE 03/16/2018 BENTLEY VEGA DO Ot Z96.653 PRESENCE OF ARTIFICIAL KNEE JOINT, BILAT 03/16/2018 TAHIR MARTINEZ DO Ot R06.2 WHEEZING 03/17/2018 ELO HOLBROOK MD Ot E78. 5 HYPERLIPIDEMIA, UNSPECIFIED 03/17/2018 ELO HOLBROOK MD Ot I10 ESSENTIAL (PRIMARY) HYPERTENSION 03/17/2018 ELO HOLBROOK MD Ot I25. 10 ATHSCL HEART DISEASE OF [place] CORONARY 03/17/2018 ELO HOLBROOK MD Ot R07. 89 OTHER CHEST PAIN 04/04/2018 ELO HOLBROOK MD Ot E78. 5 HYPERLIPIDEMIA, UNSPECIFIED 04/04/2018 ELO HOLBROOK MD Ot I10 ESSENTIAL (PRIMARY) HYPERTENSION 04/04/2018 ELO HOLBROOK MD Ot I25. 10 ATHSCL HEART DISEASE OF [place] CORONARY 04/04/2018 ELO HOLBROOK MD Ot R07. 89 OTHER CHEST PAIN 04/14/2018 TAHIR MARTINEZ DO Ot 493.90 ASTHMA, UNSPECIFIED 04/14/2018 ELO HOLBROOK MD Ot 414. 00 CORON ATHEROSCLER NOS TYPE VESSEL, NATIV 04/14/2018 ELO HOLBROOK MD Ot 786. 50 CHEST PAIN NOS 04/14/2018 ELO HOLBROOK MD Ot V72. 81 [id number] CARDIOVASCULAR 04/14/2018 ROSIE SUAREZ MD Ot 715. 36 LOC OSTEOARTH NOS-L/LEG 04/14/2018 ROSIE SUAREZ MD Ot 791. 9 ABN URINE FINDINGS NEC 04/14/2018 ROSIE SUAREZ MD Ot V72. 63 PRE-PROCEDURAL LABORATORY EXAMINATION 04/14/2018 ROSIE SUAREZ MD Ot V74. 8 SCREEN-BACTERIAL DIS NEC 04/14/2018 BENTLEY VEGA DO Ot V72. 84 EXAM PRE-OPERATIVE NOS 04/14/2018 VEGABENTLEY MCKEON DO Ot V72. 84 EXAM PRE-OPERATIVE NOS 04/14/2018 TAHIR MARTINEZ DO Ot 443.9 PERIPH VASCULAR DIS NOS 04/14/2018 TAHIR MARTINEZ DO Ot 276.51 DEHYDRATION 04/14/2018 TAHIR MARTINEZ DO Ot 496 CHR AIRWAY OBSTRUCT NEC 04/14/2018 TAHIR MARTINEZ DO Ot 585.3 CHRONIC KIDNEY DISEASE, STAGE III (MODER 04/14/2018 TAHIR MARTINEZ DO Ot 780.61 FEVER PRESENTING WITH CONDITIONS CLASSIF 04/14/2018 Ot 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 04/14/2018 Ot E78.5 HYPE RLIPIDEMIA, UNSPECIFIED 04/14/2018 Ot 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 04/14/2018 Ot I25.10 ATH SCL HEART DISEASE OF [place] CORONARY 04/14/2018 Ot 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 5 HYPERLIPIDEMIA, UNSPECIFIED 04/14/2018 ELO HOLBROOK MD Ot I10 ESSENTIAL (PRIMARY) HYPERTENSION 04/14/2018 ELO HOLBROOK MD Ot I25. 10 ATHSCL HEART DISEASE OF [place] CORONARY 04/14/2018 ELO HOLBROOK MD Ot R07. 89 OTHER CHEST PAIN 04/14/2018 ELO HOLBROOK MD Ot E78. 5 HYPERLIPIDEMIA, UNSPECIFIED 04/14/2018 ELO HOLBROOK MD Ot I10 ESSENTIAL (PRIMARY) HYPERTENSION 04/14/2018 ELO HOLBROOK MD Ot I25. 10 ATHSCL HEART DISEASE OF [place] CORONARY 04/14/2018 ELO HOLBROOK MD Ot R07. 89 OTHER CHEST PAIN 04/14/2018 ELO HOLBROOK MD Ot E78. 5 HYPERLIPIDEMIA, UNSPECIFIED 04/14/2018 ELO HOLBROOK MD Ot I10 ESSENTIAL (PRIMARY) HYPERTENSION 04/14/2018 ELO HOLBROOK MD Ot I25. 10 ATHSCL HEART DISEASE OF [place] CORONARY 04/14/2018 ELO HOLBROOK MD Ot R07. 89 OTHER CHEST PAIN 04/14/2018 MARTINEZ DO, TAHIR Ot R06.2 WHEEZING 04/19/2018 BENTLEY VEGA DO Ot K25. 9 GASTRIC ULCER, UNSP ACUTE OR CHRONIC, 04/19/2018 BENTLEY VEGA DO Ot Z01.818 ENCOUNTER FOR OTHER PREPROCEDURAL EXAMIN 04/20/2018 BENTLEY VEGA DO Ot K25. 9 GASTRIC ULCER, UNSP ACUTE OR CHRONIC, 04/20/2018 BENTLEY VEGA DO Ot Z01.818 ENCOUNTER FOR OTHER PREPROCEDURAL EXAMIN 04/26/2018 BENTLEY VEGA DO Ot E78. 5 HYPERLIPIDEMIA, UNSPECIFIED 04/26/2018 BENTLEY VEGA DO Ot I10 ESSENTIAL (PRIMARY) HYPERTENSION 04/26/2018 BENTLEY VEGA DO Ot I25. 10 ATHSCL HEART DISEASE OF [place] CORONARY 04/26/2018 BENTLEY VEGA DO Ot J44. 9 CHRONIC OBSTRUCTIVE PULMONARY DISEASE, U 04/26/2018 BENTLEY VEGA DO Ot K21. 9 GASTRO-ESOPHAGEAL REFLUX DISEASE WITHOUT 04/26/2018 BENTLEY VEGA DO Ot K29. 70 GASTRITIS, UNSPECIFIED, WITHOUT BLEEDING 04/26/2018 BENTLEY VEGA DO Ot K44. 9 DIAPHRAGMATIC HERNIA WITHOUT OBSTRUCTION 04/26/2018 BENTLEY VEGA DO Ot Z95. 5 PRESENCE OF CORONARY ANGIOPLASTY IMPLANT 04/26/2018 BENTLEY VEGA DO Ot Z96.653 PRESENCE OF ARTIFICIAL KNEE JOINT, BILAT 04/28/2018 BENTLEY VEGA DO Ot E78. 5 HYPERLIPIDEMIA, UNSPECIFIED 04/28/2018 VEGA DO, BENTLEY D Ot I10 ESSENTIAL (PRIMARY) HYPERTENSION 04/28/2018 VEGA DO, BENTLEY D Ot I25. 10 ATHSCL HEART DISEASE OF [place] CORONARY 04/28/2018 VEGA DO, BENTLEY D Ot J44. 9 CHRONIC OBSTRUCTIVE PULMONARY DISEASE, U 04/28/2018 VEGA DO, BENTLEY D Ot K21. 9 GASTRO-ESOPHAGEAL REFLUX DISEASE WITHOUT 04/28/2018 VEGA DO, BENTLEY D Ot K29. 70 GASTRITIS, UNSPECIFIED, WITHOUT BLEEDING 04/28/2018 VEGA DO, BENTLEY D Ot K44. 9 DIAPHRAGMATIC HERNIA WITHOUT OBSTRUCTION 04/28/2018 VEGA DO, BENTLEY D Ot Z95. 5 PRESENCE OF CORONARY ANGIOPLASTY IMPLANT 04/28/2018 VEGA DO, BENTLEY D Ot Z96.653 PRESENCE OF ARTIFICIAL KNEE JOINT, BILAT 05/02/2018 VEGA DO, BENTLEY D Ot E78. 5 HYPERLIPIDEMIA, UNSPECIFIED 05/02/2018 VEGA DO, BENTLEY D Ot I10 ESSENTIAL (PRIMARY) HYPERTENSION 05/02/2018 VEGA DO, BENTLEY D Ot I25. 10 ATHSCL HEART DISEASE OF [place] CORONARY 05/02/2018 VEGA DO, BENTLEY D Ot J44. 9 CHRONIC OBSTRUCTIVE PULMONARY DISEASE, U 05/02/2018 VEGA DO, BENTLEY D Ot K21. 9 GASTRO-ESOPHAGEAL REFLUX DISEASE WITHOUT 05/02/2018 VEGA DO, BENTLEY D Ot K29. 70 GASTRITIS, UNSPECIFIED, WITHOUT BLEEDING 05/02/2018 VEGA DO, BENTLEY D Ot K44. 9 DIAPHRAGMATIC HERNIA WITHOUT OBSTRUCTION 05/02/2018 VEGA DO, BENTLEY D Ot Z95. 5 PRESENCE OF CORONARY ANGIOPLASTY IMPLANT 05/02/2018 VEGA DO, BENTLEY D Ot Z96.653 PRESENCE OF ARTIFICIAL KNEE JOINT, BILAT 05/04/2018 VEGA DO, BENTLEY D Ot E78. 5 HYPERLIPIDEMIA, UNSPECIFIED 05/04/2018 VEGA DO, BENTLEY D Ot I10 ESSENTIAL (PRIMARY) HYPERTENSION 05/04/2018 VEGA DO, BENTLEY D Ot I25. 10 ATHSCL HEART DISEASE OF [place] CORONARY 05/04/2018 VEGA DO, BENTLEY D Ot J44. 9 CHRONIC OBSTRUCTIVE PULMONARY DISEASE, U 05/04/2018 VEGA DO, BENTLEY D Ot K21. 9 GASTRO-ESOPHAGEAL REFLUX DISEASE WITHOUT 05/04/2018 BENTLEY VEGA DO Ot K29. 70 GASTRITIS, UNSPECIFIED, WITHOUT BLEEDING 05/04/2018 BENTLEY VEGA DO Ot K44. 9 DIAPHRAGMATIC HERNIA WITHOUT OBSTRUCTION 05/04/2018 BENTLEY VEGA DO Ot Z95. 5 PRESENCE OF CORONARY ANGIOPLASTY IMPLANT 05/04/2018 BENTLEY VEGA DO Ot Z96.653 PRESENCE OF ARTIFICIAL KNEE JOINT, BILAT 05/04/2018 TAHIR MARTINEZ DO Ot I73.9 PERIPHERAL VASCULAR DISEASE, UNSPECIFIED 05/05/2018 TAHIR MARTINEZ DO Ot J44.9 CHRONIC OBSTRUCTIVE PULMONARY DISEASE, U 05/06/2018 TAHIR MARTINEZ DO Ot I73.9 PERIPHERAL VASCULAR DISEASE, UNSPECIFIED 05/11/2018 ELO HOLBROOK MD Ot E78. 5 HYPERLIPIDEMIA, UNSPECIFIED 05/11/2018 ELO HOLBROOK MD Ot I10 ESSENTIAL (PRIMARY) HYPERTENSION 05/11/2018 ELO HOLBROOK MD Ot I25. 10 ATHSCL HEART DISEASE OF [place] CORONARY 05/11/2018 ELO HOLBROOK MD Ot R07. 89 OTHER CHEST PAIN 05/26/2018 TAHIR MARTINEZ DO Ot J44.9 CHRONIC OBSTRUCTIVE PULMONARY DISEASE, U 05/26/2018 TAHIR MARTINEZ DO Ot I73.9 PERIPHERAL VASCULAR DISEASE, UNSPECIFIED 05/27/2018 TAHIR MARTINEZ DO Ot 493.90 ASTHMA, UNSPECIFIED 05/27/2018 ELO HOLBROOK MD Ot 414. 00 CORON ATHEROSCLER NOS TYPE VESSEL, NATIV 05/27/2018 ELO HOLBROOK MD Ot 786. 50 CHEST PAIN NOS 05/27/2018 ELO HOLBROOK MD Ot V72. 81 WWLZ-QZM-NTMFYRFLE CARDIOVASCULAR 05/27/2018 ROSIE SUAREZ MD Ot 715. 36 LOC OSTEOARTH NOS-L/LEG 05/27/2018 ROSIE SUAREZ MD Ot 791. 9 ABN URINE FINDINGS NEC 05/27/2018 ROSIE SUAREZ MD Ot V72. 63 PRE-PROCEDURAL LABORATORY EXAMINATION 05/27/2018 ROSIE SUAREZ MD Ot V74. 8 SCREEN-BACTERIAL DIS NEC 05/27/2018 BENTLEY VEGA DO Ot V72. 84 EXAM PRE-OPERATIVE NOS 05/27/2018 BENTLEY VEGA DO Ot V72. 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 5 HYPERLIPIDEMIA, UNSPECIFIED 05/27/2018 ELO HOLBROOK MD Ot I10 ESSENTIAL (PRIMARY) HYPERTENSION 05/27/2018 ELO HOLBROOK MD Ot I25. 10 ATHSCL HEART DISEASE OF [place] CORONARY 05/27/2018 ELO HOLBROOK MD Ot R07. 89 OTHER CHEST PAIN 05/27/2018 ELO HOLBROOK MD Ot E78. 5 HYPERLIPIDEMIA, UNSPECIFIED 05/27/2018 ELO HOLBROOK MD Ot I10 ESSENTIAL (PRIMARY) HYPERTENSION 05/27/2018 ELO HOLBROOK MD Ot I25. 10 ATHSCL HEART DISEASE OF [place] CORONARY 05/27/2018 ELO HOLBROOK MD Ot R07. 89 OTHER CHEST PAIN 05/27/2018 TAHIR MARTINEZ DO Ot J44.9 CHRONIC OBSTRUCTIVE PULMONARY DISEASE, U 05/27/2018 TAHIR MARTINEZ DO Ot I73.9 PERIPHERAL VASCULAR DISEASE, UNSPECIFIED 05/27/2018 ELO HOLBROOK MD Ot E78. 5 HYPERLIPIDEMIA, UNSPECIFIED 05/27/2018 YUSEF BETHEA, ELO Gregory Ot I10 ESSENTIAL (PRIMARY) HYPERTENSION 05/27/2018 ELO HOLBROOK MD Ot I25. 10 ATHSCL HEART DISEASE [place] CORONARY 05/27/2018 YUSEF BETHEA, ELO Gregory Ot R07. 89 OTHER CHEST PAIN 05/27/2018 TAHIR MARTINEZ DO Ot J44.9 CHRONIC OBSTRUCTIVE PULMONARY DISEASE, U 05/27/2018 TAHIR MARTINEZ DO Ot I73.9 PERIPHERAL VASCULAR DISEASE, UNSPECIFIED 06/06/2018 KATHY VILLALTA DO Ot R06. 00 DYSPNEA, UNSPECIFIED 06/07/2018 KATHY VILLALTA DO Ot J45.909 UNSPECIFIED ASTHMA, UNCOMPLICATED 06/07/2018 KATHY VILLALTA DO Ot R00. 2 PALPITATIONS 06/07/2018 KATHY VILLALTA DO Ot Z87.891 PERSONAL HISTORY OF NICOTINE DEPENDENCE 06/07/2018 SANAZ AWAD APRN Ot J45.909 UNSPECIFIED ASTHMA, UNCOMPLICATED 06/26/2018 SANAZ AWAD APRN Ot G47.33 OBSTRUCTIVE SLEEP APNEA (ADULT) (PEDIATR 06/26/2018 SANAZ AWAD APRN Ot G47.61 PERIODIC LIMB MOVEMENT DISORDER 06/26/2018 SANAZ AWAD APRN Ot I10 ESSENTIAL (PRIMARY) HYPERTENSION 08/04/2018 KAYCEE TELLO MD, Ot I10 ESSENTIAL (PRIMARY) HYPERTENSION 08/04/2018 KAYCEE TELLO MD, Ot I25.10 ATHSCL HEART DISEASE OF [place] CORONARY 08/04/2018 KAYCEE TELLO MD Ot I73.9 PERIPHERAL VASCULAR DISEASE, UNSPECIFIED 08/04/2018 KAYCEE TELLO MD, Ot J44.9 CHRONIC OBSTRUCTIVE PULMONARY DISEASE, U 08/04/2018 KAYCEE TELLO MD Ot K21.9 GASTRO-ESOPHAGEAL REFLUX DISEASE WITHOUT 08/04/2018 KAYCEE TELLO MD Ot M54.5 LOW BACK PAIN 08/04/2018 KAYCEE TELLO MD Ot Z79.51 ALF (CURRENT) USE OF INHALED STERO 08/04/2018 KAYCEE TELLO MD Ot 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 08/04/2018 KAYCEE TELLO MD Ot Z82.49 FAMILY HX OF ISCHEM HEART DIS AND OTH DI 08/04/2018 KAYCEE TELLO MD Ot Z87.19 PERSONAL HISTORY OF OTHER DISEASES OF 08/04/2018 KAYCEE TELLO MD Ot Z87.891 PERSONAL HISTORY OF NICOTINE DEPENDENCE 08/04/2018 KAYCEE TELLO MD Ot Z88.5 ALLERGY STATUS TO NARCOTIC AGENT STATUS 08/04/2018 KAYCEE TELLO MD Ot Z88.6 ALLERGY STATUS TO ANALGESIC AGENT STATUS 08/04/2018 KAYCEE TELLO MD Ot Z88.8 ALLERGY STATUS TO OTH DRUG/MEDS/BIOL SUB 08/08/2018 KAYCEE TELLO MD Ot I10 ESSENTIAL (PRIMARY) HYPERTENSION 08/08/2018 KAYCEE TELLO MD Ot I25.10 ATHSCL HEART DISEASE OF [place] CORONARY 08/08/2018 KAYCEE TELLO MD Ot I73.9 PERIPHERAL VASCULAR DISEASE, UNSPECIFIED 08/08/2018 KAYCEE TELLO MD Ot J44.9 CHRONIC OBSTRUCTIVE PULMONARY DISEASE, U 08/08/2018 KAYCEE TELLO MD Ot K21.9 GASTRO-ESOPHAGEAL REFLUX DISEASE WITHOUT 08/08/2018 KAYCEE TELLO MD Ot M54.5 LOW BACK PAIN 08/08/2018 KAYCEE TELLO MD Ot Z79.51 [employer] (CURRENT) USE OF INHALED STERO 08/08/2018 KAYCEE TELLO MD Ot Z79.82 ALF (CURRENT) USE OF ASPIRIN 08/08/2018 KAYCEE TELLO MD Ot Z82.49 FAMILY HX OF ISCHEM HEART DIS AND OTH DI 08/08/2018 KAYCEE TELLO MD Ot Z87.19 PERSONAL HISTORY OF OTHER DISEASES OF 08/08/2018 KAYCEE TELLO MD Ot Z87.891 PERSONAL HISTORY OF NICOTINE DEPENDENCE 08/08/2018 KAYCEE TELLO MD Ot Z88.5 ALLERGY STATUS TO NARCOTIC AGENT STATUS 08/08/2018 KAYCEE TELLO MD, Ot Z88.6 ALLERGY STATUS TO ANALGESIC AGENT STATUS 08/08/2018 KAYCEE TELLO MD Ot Z88.8 ALLERGY STATUS TO OTH DRUG/MEDS/BIOL SUB 08/10/2018 TAHIR MARTINEZ DO Ot 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 OF HIP 08/10/2018 PHOEBE MARTINEZ DOI Ot M43.16 SPONDYLOLISTHESIS, LUMBAR REGION 08/10/2018 PHOEBE MARTINEZ DOI Ot 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 08/10/2018 KAYCEE TELLO MD Ot I10 ESSENTIAL (PRIMARY) HYPERTENSION 08/10/2018 KAYCEE TELLO MD Ot I25.10 ATHSCL HEART DISEASE OF [place] CORONARY 08/10/2018 KAYCEE TELLO MD Ot I73.9 PERIPHERAL VASCULAR DISEASE, UNSPECIFIED 08/10/2018 KAYCEE TELLO MD, Ot J44.9 CHRONIC OBSTRUCTIVE PULMONARY DISEASE, U 08/10/2018 KAYCEE TELLO MD, Ot K21.9 GASTRO-ESOPHAGEAL REFLUX DISEASE WITHOUT 08/10/2018 KAYCEE TELLO MD Ot M54.5 LOW BACK PAIN 08/10/2018 KAYCEE TELLO MD, Ot Z79.51 ALF (CURRENT) USE OF INHALED STERO 08/10/2018 KAYCEE TELLO MD Ot 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 08/10/2018 KAYCEE TELLO MD Ot Z82.49 FAMILY HX OF ISCHEM HEART DIS AND OTH DI 08/10/2018 KAYCEE TELLO MD, Ot Z87.19 PERSONAL HISTORY OF OTHER DISEASES OF TH 08/10/2018 KAYCEE TELLO MD, Ot Z87.891 PERSONAL HISTORY OF NICOTINE DEPENDENCE 08/10/2018 KAYCEE TELLO MD, Ot Z88.5 ALLERGY STATUS TO NARCOTIC AGENT STATUS 08/10/2018 KAYCEE TELLO MD Ot Z88.6 ALLERGY STATUS TO ANALGESIC AGENT STATUS 08/10/2018 KAYCEE TELLO MD Ot Z88.8 ALLERGY STATUS TO OTH DRUG/MEDS/BIOL SUB 09/06/2018 TAHIR MARTINEZ DO Ot 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 OF HIP 09/06/2018 TAHIR MARTINEZ DO Ot M43.16 SPONDYLOLISTHESIS, LUMBAR REGION 09/06/2018 JUAN DUKES TAHIR Ot 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 2 PALPITATIONS 09/13/2018 KATHY VILLALTA DO Ot Z87.891 PERSONAL HISTORY OF NICOTINE DEPENDENCE 09/20/2018 TAHIR MARTINEZ DO Ot 493.90 ASTHMA, UNSPECIFIED 09/20/2018 YUSEF BETHEA, ELO Gregory Ot 414. 00 CORON ATHEROSCLER NOS TYPE VESSEL, NATIV 09/20/2018 ELO HOLBROOK MD Ot 786. 50 CHEST PAIN NOS 09/20/2018 ELO HOLBROOK MD Ot V72. 81 KBMP-HOW-WODVSNDMA CARDIOVASCULAR 09/20/2018 ROSIE SUAREZ MD Ot 715. 36 LOC OSTEOARTH NOS-L/LEG 09/20/2018 ROSIE SUAREZ MD Ot 791. 9 ABN URINE FINDINGS NEC 09/20/2018 ROSIE SUAREZ MD Ot V72. 63 PRE-PROCEDURAL LABORATORY EXAMINATION 09/20/2018 ROSIE SUAREZ MD Ot V74. 8 SCREEN-BACTERIAL DIS NEC 09/20/2018 BENTLEY VEGA DO Ot V72. 84 EXAM PRE-OPERATIVE NOS 09/20/2018 BENTLEY VEGA DO Ot V72. 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 5 HYPERLIPIDEMIA, UNSPECIFIED 09/20/2018 ELO HOLBROOK MD Ot I10 ESSENTIAL (PRIMARY) HYPERTENSION 09/20/2018 ELO HOLBROOK MD Ot I25. 10 ATHSCL HEART DISEASE OF [place] CORONARY 09/20/2018 ELO HOLBROOK MD Ot R07. 89 OTHER CHEST PAIN 09/20/2018 ELO HOLBROOK MD Ot E78. 5 HYPERLIPIDEMIA, UNSPECIFIED 09/20/2018 ELO HOLBROOK MD Ot I10 ESSENTIAL (PRIMARY) HYPERTENSION 09/20/2018 ELO HOLBROOK MD Ot I25. 10 ATHSCL HEART DISEASE OF [place] CORONARY 09/20/2018 ELO HOLBROOK MD Ot R07. 89 OTHER CHEST PAIN 09/20/2018 TAHIR MARTINEZ DO Ot J44.9 CHRONIC OBSTRUCTIVE PULMONARY DISEASE, U 09/20/2018 TAHIR MARTINEZ DO Ot I73.9 PERIPHERAL VASCULAR DISEASE, UNSPECIFIED 09/20/2018 KATHY VILLALTA DO Ot J45.909 UNSPECIFIED ASTHMA, UNCOMPLICATED 09/20/2018 KATHY VILLALTA DO Ot R00. 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 00 PURE HYPERCHOLESTEROLEMIA, UNSPECIFIED 04/03/2019 LEVY ORTIZ MD Ot I10 ESSENTIAL (PRIMARY) HYPERTENSION 04/03/2019 LEVY ORTIZ MD Ot I25. 10 ATHSCL HEART DISEASE OF [place] CORONARY 04/03/2019 LEVY ORTIZ MD, Ot J44. 9 CHRONIC OBSTRUCTIVE PULMONARY DISEASE, U 04/03/2019 LEVY ORITZ MD Ot M79.672 PAIN IN LEFT FOOT 04/03/2019 LEVY ORTIZ MD Ot S90.32XA CONTUSION OF LEFT FOOT, INITIAL ENCOUNTE 04/03/2019 LEVY ORTIZ MD Ot W22.09XA STRIKING AGAINST OTHER STATIONARY OBJECT 04/03/2019 LEVY ORTIZ MD Ot Z79. 51 ALF (CURRENT) USE OF INHALED STERO 04/03/2019 LEVY ORTIZ MD Ot Z79. 52 ALF (CURRENT) USE OF SYSTEMIC STER 04/03/2019 LEVY ORTIZ MD Ot Z79. 82 ALF (CURRENT) USE OF ASPIRIN 04/03/2019 LEVY ORTIZ MD Ot Z82. 49 FAMILY HX OF ISCHEM HEART DIS AND OTH DI 04/03/2019 DIANA MD, LEVY J Ot Z87. 19 PERSONAL HISTORY OF OTHER DISEASES OF TH 04/03/2019 LEVY ORTIZ MD, Ot Z87.891 PERSONAL HISTORY OF NICOTINE DEPENDENCE 04/03/2019 LEVY ORTIZ MD, Ot Z88. 1 ALLERGY STATUS TO OTHER ANTIBIOTIC AGENT 04/03/2019 LEVY ORTIZ MD, Ot Z88. 5 ALLERGY STATUS TO NARCOTIC AGENT STATUS 04/03/2019 LEVY ORTIZ MD, Ot Z88. 6 ALLERGY STATUS TO ANALGESIC AGENT STATUS 04/03/2019 LEVY ORTIZ MD Ot Z95. 5 PRESENCE OF CORONARY ANGIOPLASTY IMPLANT 04/03/2019 LEVY ORTIZ MD, Ot Z96.653 PRESENCE OF ARTIFICIAL KNEE JOINT, BILAT 04/11/2019 MANDIE GARAY APRN Ot E78.00 PURE HYPERCHOLESTEROLEMIA, UNSPECIFIED 04/11/2019 MANDIE GARAY APRN Ot I10 ESSENTIAL (PRIMARY) HYPERTENSION 04/11/2019 MANDIE GARAY APRN Ot I25.10 ATHSCL HEART DISEASE OF [place] CORONARY 04/11/2019 MANDIE GARAY APRN, Ot J44 .9 CHRONIC OBSTRUCTIVE PULMONARY DISEASE, U 04/11/2019 MANDIE GARAY APRN Ot S51.811A LACERATION W/O FOREIGN BODY OF RIGHT FOR 04/11/2019 MANDIE GARAY APRN Ot W01.0XXA FALL SAME LEV FROM SLIP/TRIP W/O STRIKE 04/11/2019 MANDIE GARAY APRN Ot Y92.[address] [facility] [address] IN [facility] NON-INSTITUT (PRIVATE 04/11/2019 MANDIE GARAY APRN Ot Z23 ENCOUNTER FOR IMMUNIZATION 04/11/2019 MANDIE GARAY APRN Ot Z79.51 ALF (CURRENT) USE OF INHALED STERO 04/11/2019 MANDIE GARAY APRN Ot Z79.82 ALF (CURRENT) USE OF ASPIRIN 04/11/2019 MANDIE GARAY APRN Ot Z82.49 FAMILY HX OF ISCHEM HEART DIS AND OTH DI 04/11/2019 MANDIE GARAY APRN Ot Z87.19 PERSONAL HISTORY OF OTHER DISEASES OF 04/11/2019 MANDIE GARAY APRN Ot Z87.891 PERSONAL HISTORY OF NICOTINE DEPENDENCE 04/11/2019 MANDIE GARAY APRN Ot Z88 .1 ALLERGY STATUS TO OTHER ANTIBIOTIC AGENT 04/11/2019 MANDIE GARAY APRN Ot Z88 .5 ALLERGY STATUS TO NARCOTIC AGENT STATUS 04/11/2019 MANDIE GARAY APRN Ot Z88 .6 ALLERGY STATUS TO ANALGESIC AGENT STATUS 04/11/2019 MANDIE GARAY APRN Ot Z95 .5 PRESENCE OF CORONARY ANGIOPLASTY IMPLANT 04/11/2019 MANDIE GARAY APRN Ot Z96.653 PRESENCE OF ARTIFICIAL KNEE JOINT, BILAT 04/13/2019 MANDIE GARAY APRN Ot E78.00 PURE HYPERCHOLESTEROLEMIA, UNSPECIFIED 04/13/2019 MANDIE GARAY APRN Ot I10 ESSENTIAL (PRIMARY) HYPERTENSION 04/13/2019 MANDIE GARAY APRN Ot I25.10 ATHSCL HEART DISEASE OF [place] CORONARY 04/13/2019 MANDIE GARAY APRN Ot J44 .9 CHRONIC OBSTRUCTIVE PULMONARY DISEASE, U 04/13/2019 MANDIE GARAY APRN Ot S51.811A LACERATION W/O FOREIGN BODY OF RIGHT FOR 04/13/2019 MANDIE GARAY APRN Ot W01.0XXA FALL SAME LEV FROM SLIP/TRIP W/O STRIKE 04/13/2019 MANDIE GARAY APRN Ot Y92.009 [facility] (PRIVATE 04/13/2019 MANDIE GARAY APRN Ot Z23 ENCOUNTER FOR IMMUNIZATION 04/13/2019 MANDIE GARAY APRN Ot Z79.51 ALF (CURRENT) USE OF INHALED STERO 04/13/2019 MANDIE GARAY APRN Ot 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 04/13/2019 MANDIE GARAY APRN Ot Z82.49 FAMILY HX OF ISCHEM HEART DIS AND OTH DI 04/13/2019 MANDIE GARAY APRN Ot Z87.19 PERSONAL HISTORY OF OTHER DISEASES OF TH 04/13/2019 MANDIE GARAY APRN Ot Z87.891 PERSONAL HISTORY OF NICOTINE DEPENDENCE 04/13/2019 MANDIE GARAY APRN Ot Z88 .1 ALLERGY STATUS TO OTHER ANTIBIOTIC AGENT 04/13/2019 MANDIE GARAY APRN Ot Z88 .5 ALLERGY STATUS TO NARCOTIC AGENT STATUS 04/13/2019 MANDIE GARAY APRN Ot Z88 .6 ALLERGY STATUS TO ANALGESIC AGENT STATUS 04/13/2019 MANDIE GARAY APRN Ot Z95 .5 PRESENCE OF CORONARY ANGIOPLASTY IMPLANT 04/13/2019 GARAY MANDIE Cotl HAYES Ot Z96.653 PRESENCE OF ARTIFICIAL KNEE JOINT, BILAT 08/20/2019 HIPOLITO HER MD, Ot D64. 9 ANEMIA, UNSPECIFIED 08/20/2019 HIPOLITO HER MD, Ot E78. 00 PURE HYPERCHOLESTEROLEMIA, UNSPECIFIED 08/20/2019 HIPOLITO HER MD, Ot E78. 2 MIXED HYPERLIPIDEMIA 08/20/2019 HIPOLITO HER MD, Ot I10 ESSENTIAL (PRIMARY) HYPERTENSION 08/20/2019 HIPOLITO HER MD, Ot I24. 9 ACUTE ISCHEMIC HEART DISEASE, UNSPECIFIE 08/20/2019 HIPOLITO HER MD, Ot I25.119 ATHSCL HEART DISEASE OF [place] COR ART W 08/20/2019 HIPOLITO HER MD, Ot J44. 9 CHRONIC OBSTRUCTIVE PULMONARY DISEASE, U 08/20/2019 HIPOLITO HER MD, Ot K21. 0 GASTRO-ESOPHAGEAL REFLUX DISEASE WITH ES 08/20/2019 HIPOLITO HER MD, Ot K29. 50 UNSPECIFIED CHRONIC GASTRITIS WITHOUT BL 08/20/2019 HIPOLITO HER MD, Ot K31. 89 OTHER DISEASES OF STOMACH AND DUODENUM 08/20/2019 HIPOLITO HER MD, Ot K44. 9 DIAPHRAGMATIC HERNIA WITHOUT OBSTRUCTION 08/20/2019 HIPOLITO HER MD, Ot M10. 9 GOUT, UNSPECIFIED 08/20/2019 HIPOLITO HER MD, Ot M19.012 PRIMARY OSTEOARTHRITIS, LEFT SHOULDER 08/20/2019 HIPOLITO HER MD, Ot M25.512 PAIN IN LEFT SHOULDER 08/20/2019 HIPOLITO HER MD Ot N19 UNSPECIFIED KIDNEY FAILURE 08/20/2019 HIPOLITO HER MD, Ot Z79. 82 ALF (CURRENT) USE OF ASPIRIN 08/20/2019 HIPOLITO HER MD, Ot Z82. 49 FAMILY HX OF ISCHEM HEART DIS AND OTH DI 08/20/2019 HIPOLITO HER MD, Ot Z82. 61 FAMILY HISTORY OF ARTHRITIS 08/20/2019 HIPOLITO HER MD, Ot Z83. 79 FAMILY HISTORY OF OTHER DISEASES OF THE 08/20/2019 HIPOLITO HER MD, Ot Z87. 11 PERSONAL HISTORY OF PEPTIC ULCER DISEASE 08/20/2019 TAINA BETHEA, HIPOLITO Moore Ot Z87.891 PERSONAL HISTORY OF NICOTINE DEPENDENCE 08/20/2019 TAINA BETHEA, HIPOLITO Moore Ot Z88. 5 ALLERGY STATUS TO NARCOTIC AGENT STATUS 08/20/2019 HIPOLITO HER MD Ot Z88. 6 ALLERGY STATUS TO ANALGESIC AGENT STATUS 08/20/2019 HIPOLITO HER MD Ot Z95. 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, STAGE 4 (SEVERE) 12/21/2019 MARTINEZ DO, TAHIR Ot I10 ESSENTIAL (PRIMARY) HYPERTENSION 12/21/2019 MARTINEZ DO, TAHIR Ot J45.90 9 UNSPECIFIED ASTHMA, UNCOMPLICATED 12/21/2019 MARTINEZ DO, TAHIR Ot M19.90 UNSPECIFIED OSTEOARTHRITIS, UNSPECIFIED 12/21/2019 MARTINEZ DO, TAHIR Ot M25.51 2 PAIN IN LEFT SHOULDER 12/21/2019 MARTINEZ DO, TAHIR Ot M25.55 2 PAIN IN LEFT HIP 12/21/2019 MARTINEZ DO, TAHIR Ot M54.5 LOW BACK PAIN 12/25/2019 Ot 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 12/25/2019 Ot E78.5 HYPE RLIPIDEMIA, UNSPECIFIED 12/25/2019 Ot 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 12/25/2019 Ot I25.10 ATH SCL HEART DISEASE OF [place] CORONARY 12/25/2019 Ot 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, U 12/25/2019 Ot 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 12/25/2019 Ot M12.9 ARTH ROPATHY, UNSPECIFIED 12/25/2019 Ot 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, STAGE 4 (SEVERE) 12/25/2019 TAHIR MARTINEZ DO Ot I10 ESSENTIAL (PRIMARY) HYPERTENSION 12/25/2019 TAHIR MARTINEZ DO Ot J45.90 9 UNSPECIFIED ASTHMA, UNCOMPLICATED 12/25/2019 PHOEBE MARTINEZ DOI Ot M19.90 UNSPECIFIED OSTEOARTHRITIS, UNSPECIFIED 12/25/2019 PHOEBE MARTINEZ DOI Ot M25.51 2 PAIN IN LEFT SHOULDER 12/25/2019 PHOEBE MARTINEZ DOI Ot M25.55 2 PAIN IN LEFT HIP 12/25/2019 JUAN DUKES TAHIR Ot M54.5 LOW BACK PAIN Procedures Code Description Performed By Per formed On 81.54 TOTA L KNEE REPLACEMENT 05/22/2013 Results Test Result Range [id number] - 06/02/18 11:10 Serum or plasma urea nitrogen measurement (mass/volume ) 30 mg/dL 7-18 Serum or plasma creatinine measurement (mass/volume) 1.85 mg/dL 0.60-1.30 Serum or plasma urea nitrogen/creatinine mass ratio 16 NRG Serum or plasma creatinine measurement w ith calculation of estimated glomerular filtration rate 26 NRG Complete urinalysis with reflex to cultu re - 08/04/18 12:40 Urine color determination YELLOW NRG Urine clarity determination CLEAR NR G Urine pH measurement by test strip 6 5-9 Specific gravity of urine by test strip 1.010 1.016-1.022 Urine protein assay by test strip, semi-quantitative NEGATIVE NEGATIVE Urine glucose detection by automated test strip NE GATIVE NEGATIVE Erythrocytes detection in urine sediment by light micr oscopy NEGATIVE NEGATIVE Urine ketones detection by automated test strip NE GATIVE NEGATIVE Urine nitrite detection by test strip NEGATIVE NEGATIVE Urine total bilirubin detection by test strip NEGA TIVE NEGATIVE Urine urobilinogen measurement by automated test strip (mass/volume) NORMAL NORMAL Urine leukocyte esterase detection by dipstick 1+ NEGATIVE Automated urine sediment erythrocyte cou nt by microscopy (number/high power field) NONE NRG Automated urine sediment leukocyte count by microscopy (number/high power field) NONE NRG Bacteria detection in urine sediment by light microsco py NEGATIVE NRG Squamous epithelial cells detection in u rine sediment by light microscopy RARE NRG Crystals detection in urine sediment by light microsco py NONE NRG Casts detection in urine sediment by light microscopy NONE NRG Mucus detection in urine sediment by light microscopy NEGATIVE NRG Complete urinalysis with reflex to culture NO NRG Complete blood count (CBC) with automate d white blood cell (WBC) differential - 08/19/19 02:00 Blood leukocytes automated count (number/volume) 9.1 10*3/uL 4.3-11.0 Blood erythrocytes automated count (number/volume) 3.03 10*6/uL 4.35-5.85 Venous blood hemoglobin measurement (mass/volume) 9.9 g/dL 11.5-16.0 Blood hematocrit (volume fraction) 27 % 35-52 Automated erythrocyte mean corpuscular volume 88 [ foz_us] 80-99 Automated erythrocyte mean corpuscular h emoglobin (mass per erythrocyte) 33 pg 25-34 Automated erythrocyte mean corpuscular h emoglobin concentration measurement (mass/volume) 37 g/dL 32-36 Automated erythrocyte distribution width ratio 16. 5 % 10.0- 14.5 Automated blood platelet count (count/volume) 298 10*3/uL 130-400 Automated blood platelet mean volume measurement 10.0 [foz_us] 7.4-10.4 Automated blood neutrophils/100 leukocytes 59 % 42-75 Automated blood lymphocytes/100 leukocytes 30 % 12-44 Blood monocytes/100 leukocytes 8 % 0-12 Automated blood eosinophils/100 leukocytes 2 % 0-10 Automated blood basophils/100 leukocytes 0 % 0-10 Blood neutrophils automated count (number/volume) 5.4 10*3 1.8-7.8 Blood lymphocytes automated count (number/volume) 2.8 10*3 1.0-4.0 Blood monocytes automated count (number/volume) 0. 8 10*3 0.0-1.0 Automated eosinophil count 0.2 10*3/uL 0 .0-0.3 Automated blood basophil count (count/volume) 0.0 10*3/uL 0.0-0.1 Fibrin D-dimer FEU measurement in platel et poor plasma (mass/volume) - 08/19/19 02:00 Fibrin D-dimer FEU measurement in platelet poor plasma (mass/volume) 1.04 ug/mL 0.00-0.49 Comprehensive metabolic panel - 08/19/19 02:00 Serum or plasma sodium measurement (moles/volume) 139 mmol/L 135-145 Serum or plasma potassium measurement (moles/volume) 4.9 mmol/L 3.6-5.0 Serum or plasma chloride measurement (moles/volume) 110 mmol/L 98-107 Carbon dioxide 20 mmol/L 21-32 Serum or plasma anion gap determination (moles/volume) 9 mmol/L 5-14 Serum or plasma urea nitrogen measurement (mass/volume ) 36 mg/dL 7-18 Serum or plasma creatinine measurement (mass/volume) 1.49 mg/dL 0.60-1.30 Serum or plasma urea nitrogen/creatinine mass ratio 24 NRG Serum or plasma creatinine measurement w ith calculation of estimated glomerular filtration rate 33 NRG Serum or plasma glucose measurement (mass/volume) 102 mg/dL 70-105 Serum or plasma calcium measurement (mass/volume) 9.0 mg/dL 8.5-10.1 Serum or plasma total bilirubin measurement (mass/volu me) 0.7 mg/dL 0.1-1.0 Serum or plasma alkaline phosphatase kyler surement (enzymatic activity/volume) 193 U/L 40-136 Serum or plasma aspartate aminotransfera se measurement (enzymatic activity/volume) 14 U/L 5-34 Serum or plasma alanine aminotransferase measurement (enzymatic activity/volume) 10 U/L 0-55 Serum or plasma protein measurement (mass/volume) 7.3 g/dL 6.4-8.2 Serum or plasma albumin measurement (mass/volume) 4.1 g/dL 3.2-4.5 CALCIUM CORRECTED 8.9 mg/dL 8.5-10.1 Magnesium - 08/19/19 02:00 Magnesium 2.5 mg/dL 1.6-2.4 PT panel in platelet poor plasma by coag ulation assay - 08/19/19 02:00 Prothrombin time (PT) in platelet poor plasma by coagu lation assay 13.4 s 12.2-14.7 INR in platelet poor plasma or blood by coagulation as say 1.0 0.8-1.4 Activated partial thromboplastin time (a PTT) in platelet poor plasma bycoagulation assay - 08/19/19 02:00 Activated partial thromboplastin time (a PTT) in platelet poor plasma bycoagulation assay 28 s 24-35 Serum or plasma troponin i.cardiac measu rement (mass/volume) - 08/19/19 02:00 Serum or plasma troponin i.cardiac measurement (mass/v olume) < ng/mL <0.028 Myoglobin, serum - 08/19/19 02:00 Myoglobin, serum 77.2 ng/mL 10.0-92.0 Serum or plasma lithium measurement (mol es/volume) - 08/19/19 02:00 BNP PT 103.5 pg/mL <100.0 Serum or plasma troponin i.cardiac measu rement (mass/volume) - 08/19/19 08:46 Serum or plasma troponin i.cardiac measurement (mass/v olume) < ng/mL <0.028 Lipid 1996 panel - 08/19/19 08:46 Serum or plasma triglyceride measurement (mass/volume) 123 mg/dL <150 Serum or plasma cholesterol measurement (mass/volume) 193 mg/dL < 200 Serum or plasma cholesterol in HDL measurement (mass/v olume) 52 mg/dL 40-60 Cholesterol in LDL [mass/volume] in serum or plasma by direct assay 113 mg/dL 1-129 Serum or plasma cholesterol in VLDL measurement (mass/ volume) 25 mg/dL 5-40 Serum or plasma troponin i.cardiac measu rement (mass/volume) - 08/19/19 14:11 Serum or plasma troponin i.cardiac measurement (mass/v olume) < ng/mL <0.028 Methicillin resistant Staphylococcus aur eus (MRSA) screening culture - 08/19/19 16:34 Methicillin resistant Staphylococcus aureus (MRSA) scr eening culture NEG NRG Complete blood count (CBC) with automate d white blood cell (WBC) differential - 08/20/19 05:10 Blood leukocytes automated count (number/volume) 8.4 10*3/uL 4.3-11.0 Blood erythrocytes automated count (number/volume) 3.22 10*6/uL 4.35-5.85 Venous blood hemoglobin measurement (mass/volume) 8.9 g/dL 11.5-16.0 Blood hematocrit (volume fraction) 28 % 35-52 Automated erythrocyte mean corpuscular volume 88 [ foz_us] 80-99 Automated erythrocyte mean corpuscular h emoglobin (mass per erythrocyte) 28 pg 25-34 Automated erythrocyte mean corpuscular h emoglobin concentration measurement (mass/volume) 32 g/dL 32-36 Automated erythrocyte distribution width ratio 15. 4 % 10.0- 14.5 Automated blood platelet count (count/volume) 265 10*3/uL 130-400 Automated blood platelet mean volume measurement 10.3 [foz_us] 7.4-10.4 Automated blood neutrophils/100 leukocytes 59 % 42-75 Automated blood lymphocytes/100 leukocytes 29 % 12-44 Blood monocytes/100 leukocytes 10 % 0-12 Automated blood eosinophils/100 leukocytes 2 % 0-10 Automated blood basophils/100 leukocytes 0 % 0-10 Blood neutrophils automated count (number/volume) 4.9 10*3 1.8-7.8 Blood lymphocytes automated count (number/volume) 2.4 10*3 1.0-4.0 Blood monocytes automated count (number/volume) 0. 8 10*3 0.0-1.0 Automated eosinophil count 0.2 10*3/uL 0 .0-0.3 Automated blood basophil count (count/volume) 0.0 10*3/uL 0.0-0.1 Comprehensive metabolic panel - 08/20/19 05:10 Serum or plasma sodium measurement (moles/volume) 139 mmol/L 135-145 Serum or plasma potassium measurement (moles/volume) 5.5 mmol/L 3.6-5.0 Serum or plasma chloride measurement (moles/volume) 112 mmol/L 98-107 Carbon dioxide 20 mmol/L 21-32 Serum or plasma anion gap determination (moles/volume) 7 mmol/L 5-14 Serum or plasma urea nitrogen measurement (mass/volume ) 30 mg/dL 7-18 Serum or plasma creatinine measurement (mass/volume) 1.50 mg/dL 0.60-1.30 Serum or plasma urea nitrogen/creatinine mass ratio 20 NRG Serum or plasma creatinine measurement w ith calculation of estimated glomerular filtration rate 33 NRG Serum or plasma glucose measurement (mass/volume) 107 mg/dL 70-105 Serum or plasma calcium measurement (mass/volume) 8.6 mg/dL 8.5-10.1 Serum or plasma total bilirubin measurement (mass/volu me) 1.2 mg/dL 0.1-1.0 Serum or plasma alkaline phosphatase kyler surement (enzymatic activity/volume) 179 U/L 40-136 Serum or plasma aspartate aminotransfera se measurement (enzymatic activity/volume) 14 U/L 5-34 Serum or plasma alanine aminotransferase measurement (enzymatic activity/volume) 12 U/L 0-55 Serum or plasma protein measurement (mass/volume) 6.5 g/dL 6.4-8.2 Serum or plasma albumin measurement (mass/volume) 3.6 g/dL 3.2-4.5 CALCIUM CORRECTED 8.9 mg/dL 8.5-10.1 Complete blood count (CBC) with automate d white blood cell (WBC) differential - 12/04/19 17:05 Blood leukocytes automated count (number/volume) 8.3 10*3/uL 4.3-11.0 Blood erythrocytes automated count (number/volume) 3.27 10*6/uL 4.35-5.85 Venous blood hemoglobin measurement (mass/volume) 8.8 g/dL 11.5-16.0 Blood hematocrit (volume fraction) 28 % 35-52 Automated erythrocyte mean corpuscular volume 87 [ foz_us] 80-99 Automated erythrocyte mean corpuscular h emoglobin (mass per erythrocyte) 27 pg 25-34 Automated erythrocyte mean corpuscular h emoglobin concentration measurement (mass/volume) 31 g/dL 32-36 Automated erythrocyte distribution width ratio 15. 2 % 10.0- 14.5 Automated blood platelet count (count/volume) 345 10*3/uL 130-400 Automated blood platelet mean volume measurement 10.0 [foz_us] 7.4-10.4 Automated blood neutrophils/100 leukocytes 59 % 42-75 Automated blood lymphocytes/100 leukocytes 30 % 12-44 Blood monocytes/100 leukocytes 9 % 0-12 Automated blood eosinophils/100 leukocytes 2 % 0-10 Automated blood basophils/100 leukocytes 1 % 0-10 Blood neutrophils automated count (number/volume) 4.9 10*3 1.8-7.8 Blood lymphocytes automated count (number/volume) 2.5 10*3 1.0-4.0 Blood monocytes automated count (number/volume) 0. 7 10*3 0.0-1.0 Automated eosinophil count 0.2 10*3/uL 0 .0-0.3 Automated blood basophil count (count/volume) 0.0 10*3/uL 0.0-0.1 PT panel in platelet poor plasma by coag ulation assay - 12/04/19 17:05 Prothrombin time (PT) in platelet poor plasma by coagu lation assay 13.6 s 12.2-14.7 INR in platelet poor plasma or blood by coagulation as say 1.0 0.8-1.4 Activated partial thromboplastin time (a PTT) in platelet poor plasma bycoagulation assay - 12/04/19 17:05 Activated partial thromboplastin time (a PTT) in platelet poor plasma bycoagulation assay 29 s 24-35 Comprehensive metabolic panel - 12/04/19 17:05 Serum or plasma sodium measurement (moles/volume) 139 mmol/L 135-145 Serum or plasma potassium measurement (moles/volume) 5.2 mmol/L 3.6-5.0 Serum or plasma chloride measurement (moles/volume) 112 mmol/L 98-107 Carbon dioxide 17 mmol/L 21-32 Serum or plasma anion gap determination (moles/volume) 10 mmol/L 5-14 Serum or plasma urea nitrogen measurement (mass/volume ) 36 mg/dL 7-18 Serum or plasma creatinine measurement (mass/volume) 1.87 mg/dL 0.60-1.30 Serum or plasma urea nitrogen/creatinine mass ratio 19 NRG Serum or plasma creatinine measurement w ith calculation of estimated glomerular filtration rate 25 NRG Serum or plasma glucose measurement (mass/volume) 108 mg/dL 70-105 Serum or plasma calcium measurement (mass/volume) 8.6 mg/dL 8.5-10.1 Serum or plasma total bilirubin measurement (mass/volu me) 0.9 mg/dL 0.1-1.0 Serum or plasma alkaline phosphatase kyler surement (enzymatic activity/volume) 171 U/L 40-136 Serum or plasma aspartate aminotransfera se measurement (enzymatic activity/volume) 14 U/L 5-34 Serum or plasma alanine aminotransferase measurement (enzymatic activity/volume) 10 U/L 0-55 Serum or plasma protein measurement (mass/volume) 7.7 g/dL 6.4-8.2 Serum or plasma albumin measurement (mass/volume) 4.1 g/dL 3.2-4.5 CALCIUM CORRECTED 8.5 mg/dL 8.5-10.1 Magnesium - 12/04/19 17:05 Magnesium 2.1 mg/dL 1.6-2.4 Serum or plasma creatine kinase measurem ent (enzymatic activity/volume) - 12/04/19 17:05 Serum or plasma creatine kinase measurem ent (enzymatic activity/volume) 45 U/L 29-168 Serum or plasma creatine kinase MB measu rement (enzymatic activity/volume) - 12/04/19 17:05 Serum or plasma creatine kinase MB measu rement (enzymatic activity/volume) 1.6 ng/mL <6.6 Myoglobin, serum - 12/04/19 17:05 Myoglobin, serum 100.1 ng/mL 10.0-92.0 Serum or plasma amylase measurement (enz ymatic activity/volume) - 12/04/19 17:05 Serum or plasma amylase measurement (enzymatic activit y/volume) 99 U/L 25-125 Lipase - 12/04/19 17:05 Lipase 39 U/L 8-78 Serum or plasma lithium measurement (mol es/volume) - 12/04/19 17:05 BNP PT 122.1 pg/mL <100.0 Serum or plasma troponin i.cardiac measu rement (mass/volume) - 12/04/19 17:05 Serum or plasma troponin i.cardiac measurement (mass/v olume) < ng/mL <0.028 Influenza virus A and B antigen detectio n - 12/25/19 19:40 FLU RESULT NEGATIVE FOR INFLUENZA A AND B ANTIGENS BY IA NR Complete blood count (CBC) with automate d white blood cell (WBC) differential - 12/25/19 19:43 Blood leukocytes automated count (number/volume) 8.4 10*3/uL 4.3-11.0 Blood erythrocytes automated count (number/volume) 2.87 10*6/uL 4.35-5.85 Venous blood hemoglobin measurement (mass/volume) 7.8 g/dL 11.5-16.0 Blood hematocrit (volume fraction) 25 % 35-52 Automated erythrocyte mean corpuscular volume 87 [ foz_us] 80-99 Automated erythrocyte mean corpuscular h emoglobin (mass per erythrocyte) 27 pg 25-34 Automated erythrocyte mean corpuscular h emoglobin concentration measurement (mass/volume) 31 g/dL 32-36 Automated erythrocyte distribution width ratio 15. 2 % 10.0- 14.5 Automated blood platelet count (count/volume) 262 10*3/uL 130-400 Automated blood platelet mean volume measurement 10.8 [foz_us] 7.4-10.4 Automated blood neutrophils/100 leukocytes 89 % 42-75 Automated blood lymphocytes/100 leukocytes 8 % 12-44 Blood monocytes/100 leukocytes 2 % 0-12 Automated blood eosinophils/100 leukocytes 1 % 0-10 Automated blood basophils/100 leukocytes 0 % 0-10 Blood neutrophils automated count (number/volume) 7.5 10*3 1.8-7.8 Blood lymphocytes automated count (number/volume) 0.7 10*3 1.0-4.0 Blood monocytes automated count (number/volume) 0. 1 10*3 0.0-1.0 Automated eosinophil count 0.0 10*3/uL 0 .0-0.3 Automated blood basophil count (count/volume) 0.0 10*3/uL 0.0-0.1 Serum or plasma C reactive protein measu rement (mass/volume) - 12/25/19 19:43 Serum or plasma C reactive protein measurement (mass/v olume) 17.05 mg/dL 0.00-0.50 Blood lactic acid measurement (moles/vol ume) - 12/25/19 19:43 Blood lactic acid measurement (moles/volume) 1.04 mmol/L 0.50-2.00 Comprehensive metabolic panel - 12/25/19 19:43 Serum or plasma sodium measurement (moles/volume) 134 mmol/L 135-145 Serum or plasma potassium measurement (moles/volume) 6.0 mmol/L 3.6-5.0 Serum or plasma chloride measurement (moles/volume) 108 mmol/L 98-107 Carbon dioxide 15 mmol/L 21-32 Serum or plasma anion gap determination (moles/volume) 11 mmol/L 5-14 Serum or plasma urea nitrogen measurement (mass/volume ) 58 mg/dL 7-18 Serum or plasma creatinine measurement (mass/volume) 2.69 mg/dL 0.60-1.30 Serum or plasma urea nitrogen/creatinine mass ratio 22 NRG Serum or plasma creatinine measurement w ith calculation of estimated glomerular filtration rate 17 NRG Serum or plasma glucose measurement (mass/volume) 157 mg/dL 70-105 Serum or plasma calcium measurement (mass/volume) 8.8 mg/dL 8.5-10.1 Serum or plasma total bilirubin measurement (mass/volu me) 2.7 mg/dL 0.1-1.0 Serum or plasma alkaline phosphatase kyler surement (enzymatic activity/volume) 162 U/L 40-136 Serum or plasma aspartate aminotransfera se measurement (enzymatic activity/volume) 12 U/L 5-34 Serum or plasma alanine aminotransferase measurement (enzymatic activity/volume) 10 U/L 0-55 Serum or plasma protein measurement (mass/volume) 6.9 g/dL 6.4-8.2 Serum or plasma albumin measurement (mass/volume) 3.8 g/dL 3.2-4.5 CALCIUM CORRECTED 9.0 mg/dL 8.5-10.1 Manual absolute plasma cell count - 02/08 19:43 Blood monocytes/100 leukocytes 1 % NR Manual blood segmented neutrophils/100 leukocytes 88 % NRG Manual blood lymphocytes/100 leukocytes 10 % NRG Manual eosinophils/100 leukocytes in nose 1 % NRG Blood erythrocyte morphology finding identification SEE [facility] Blood hypochromia detection by light microscopy MO DERATE [facility] PT panel in platelet poor plasma by coag ulation assay - 12/25/19 19:43 Prothrombin time (PT) in platelet poor plasma by coagu lation assay 14.2 s 12.2-14.7 INR in platelet poor plasma or blood by coagulation as say 1.1 0.8-1.4 Activated partial thromboplastin time (a PTT) in platelet poor plasma bycoagulation assay - 12/25/19 19:43 Activated partial thromboplastin time (a PTT) in platelet poor plasma bycoagulation assay 26 s 24-35 Serum or plasma troponin i.cardiac measu rement (mass/volume) - 12/25/19 19:43 Serum or plasma troponin i.cardiac measurement (mass/v olume) < ng/mL <0.028 PROCALCITONIN (PCT) - 12/25/19 19:43 PROCALCITONIN (PCT) 25.73 ng/mL <0.10 Bacterial blood culture - 12/25/19 19:43 FREE TEXT EXTERNAL REFER TO PREV CULTURE FOR SUSCEPTIBILITY NRG QUANTITY OF GROWTH . NRG Bacterial blood culture SEE [facility] FREE TEXT ENTRY 2 RML REPORTED ID 12/27/19 10:05 NRG Bacterial blood culture - 12/25/19 20:30 FREE TEXT EXTERNAL RML REPORTED SUSCEPTIBILITY 12/28 9:05 NRG QUANTITY OF GROWTH . NRG Bacterial blood culture SEE [facility] FREE TEXT ENTRY 2 RML REPORTED ID 12/27/19 10:05 NRG RML SENSITIVITY MAIN LAB - 12/25/19 20:3 0 Gentamicin susceptibility test by minimum inhibitory c oncentration <= NRG Trimethoprim/sulfamethoxazole susceptibi lity test by minimum inhibitoryconcentration <= NRG Levofloxacin susceptibility test by minimum inhibitory concentration <= NRG Ampicillin susceptibility test by minimum inhibitory c oncentration <= NRG Cefazolin susceptibility test by minimum inhibitory co ncentration <= NRG Ceftriaxone susceptibility test by minimum inhibitory concentration <= NRG Piperacillin/tazobactam susceptibility t est by minimum inhibitory concentration <= NRG Ciprofloxacin susceptibility test by minimum inhibitor y concentration <= NRG Meropenem susceptibility test by minimum inhibitory co ncentration <= NRG Amoxicillin and clavulanate potassium susc NAM <= NRG Imipenem susceptibility test by minimum inhibitory con centration <= NRG Complete urinalysis with reflex to cultu re - 12/25/19 20:50 Urine color determination YELLOW NRG Urine clarity determination SL CLOUDY N RG Urine pH measurement by test strip 6.0 5-9 Specific gravity of urine by test strip >= 1.016-1.022 Urine protein assay by test strip, semi-quantitative 2+ NEGATIVE Urine glucose detection by automated test strip NE GATIVE NEGATIVE Erythrocytes detection in urine sediment by light micr oscopy 1+ NEGATIVE Urine ketones detection by automated test strip NE GATIVE NEGATIVE Urine nitrite detection by test strip NEGATIVE NEGATIVE Urine total bilirubin detection by test strip NEGA TIVE NEGATIVE Urine urobilinogen measurement by automated test strip (mass/volume) 1.0 mg/dL < = 1.0 Urine leukocyte esterase detection by dipstick 2+ NEGATIVE Automated urine sediment erythrocyte cou nt by microscopy (number/high power field) [HPF] NRG Automated urine sediment leukocyte count by microscopy (number/high power field) TNTC NRG Bacteria detection in urine sediment by light microsco py LARGE NRG Crystals detection in urine sediment by light microsco py NONE NRG Casts detection in urine sediment by light microscopy NONE NRG Mucus detection in urine sediment by light microscopy NEGATIVE NRG Complete urinalysis with reflex to culture CULTURE PENDING [facility] Bacterial urine culture - 12/25/19 20:50 Bacterial urine culture [id number] NRG COLONY COUNT >100,000/ML NRG FREE TEXT ENTRY 2 SUSCEPTIBILITY REPORTED 12/27 10:0 5 NRG FREE TEXT ENTRY 3 ID REPORTED BY [facility] 12/26 15:05 NRG Dirithromycin susceptibility test by dis k diffusion - 12/25/19 20:50 Gentamicin susceptibility test by minimum inhibitory c oncentration <= NRG Trimethoprim/sulfamethoxazole susceptibi lity test by minimum inhibitoryconcentration <= NRG Levofloxacin susceptibility test by minimum inhibitory concentration <= NRG Ampicillin susceptibility test by minimum inhibitory c oncentration <= NRG Cefazolin susceptibility test by minimum inhibitory co ncentration <= NRG Ceftriaxone susceptibility test by minimum inhibitory concentration <= NRG Ciprofloxacin susceptibility test by minimum inhibitor y concentration <= NRG Meropenem susceptibility test by minimum inhibitory co ncentration <= NRG Nitrofurantoin susceptibility test by mi nimum inhibitory concentration <= NRG Amoxicillin and clavulanate potassium susc NAM <= NRG Methicillin resistant Staphylococcus aur eus (MRSA) screening culture - 12/25/19 22:32 Methicillin resistant Staphylococcus aureus (MRSA) scr eening culture NEG NRG Complete blood count (CBC) with automate d white blood cell (WBC) differential - 12/26/19 03:30 Blood leukocytes automated count (number/volume) 16.8 10*3/uL 4.3-11.0 Blood erythrocytes automated count (number/volume) 2.62 10*6/uL 4.35-5.85 Venous blood hemoglobin measurement (mass/volume) 7.0 g/dL 11.5-16.0 Blood hematocrit (volume fraction) 23 % 35-52 Automated erythrocyte mean corpuscular volume 87 [ foz_us] 80-99 Automated erythrocyte mean corpuscular h emoglobin (mass per erythrocyte) 27 pg 25-34 Automated erythrocyte mean corpuscular h emoglobin concentration measurement (mass/volume) 31 g/dL 32-36 Automated erythrocyte distribution width ratio 15. 1 % 10.0- 14.5 Automated blood platelet count (count/volume) 240 10*3/uL 130-400 Automated blood platelet mean volume measurement 10.8 [foz_us] 7.4-10.4 Automated blood neutrophils/100 leukocytes 77 % 42-75 Automated blood lymphocytes/100 leukocytes 11 % 12-44 Blood monocytes/100 leukocytes 11 % 0-12 Automated blood eosinophils/100 leukocytes 0 % 0-10 Automated blood basophils/100 leukocytes 0 % 0-10 Blood neutrophils automated count (number/volume) 13.0 10*3 1.8-7.8 Blood lymphocytes automated count (number/volume) 1.9 10*3 1.0-4.0 Blood monocytes automated count (number/volume) 1. 9 10*3 0.0-1.0 Automated eosinophil count 0.0 10*3/uL 0 .0-0.3 Automated blood basophil count (count/volume) 0.0 10*3/uL 0.0-0.1 Comprehensive metabolic panel - 12/26/19 03:30 Serum or plasma sodium measurement (moles/volume) 137 mmol/L 135-145 Serum or plasma potassium measurement (moles/volume) 5.4 mmol/L 3.6-5.0 Serum or plasma chloride measurement (moles/volume) 114 mmol/L 98-107 Carbon dioxide 13 mmol/L 21-32 Serum or plasma anion gap determination (moles/volume) 10 mmol/L 5-14 Serum or plasma urea nitrogen measurement (mass/volume ) 54 mg/dL 7-18 Serum or plasma creatinine measurement (mass/volume) 2.39 mg/dL 0.60-1.30 Serum or plasma urea nitrogen/creatinine mass ratio 23 NRG Serum or plasma creatinine measurement w ith calculation of estimated glomerular filtration rate 19 NRG Serum or plasma glucose measurement (mass/volume) 178 mg/dL 70-105 Serum or plasma calcium measurement (mass/volume) 8.2 mg/dL 8.5-10.1 Serum or plasma total bilirubin measurement (mass/volu me) 2.3 mg/dL 0.1-1.0 Serum or plasma alkaline phosphatase kyler surement (enzymatic activity/volume) 138 U/L 40-136 Serum or plasma aspartate aminotransfera se measurement (enzymatic activity/volume) 12 U/L 5-34 Serum or plasma alanine aminotransferase measurement (enzymatic activity/volume) 9 U/L 0-55 Serum or plasma protein measurement (mass/volume) 6.3 g/dL 6.4-8.2 Serum or plasma albumin measurement (mass/volume) 3.4 g/dL 3.2-4.5 CALCIUM CORRECTED 8.7 mg/dL 8.5-10.1 Serum or plasma phosphate measurement (m ass/volume) - 12/26/19 03:30 Serum or plasma phosphate measurement (mass/volume) 3.3 mg/dL 2.3-4.7 Magnesium - 12/26/19 03:30 Magnesium 2.0 mg/dL 1.6-2.4 Manual absolute plasma cell count - 03/11 03:30 Blood monocytes/100 leukocytes 9 % NRG Manual blood segmented neutrophils/100 leukocytes 78 % NRG Manual blood lymphocytes/100 leukocytes 13 % NRG OCCULT BLOOD STOOL - 12/26/19 13:50 Stool gastrointestinal hemoglobin detection NEGATI VE NEGATIVE Whole blood basic metabolic panel - 04/10 03:25 Serum or plasma sodium measurement (moles/volume) 139 mmol/L 135-145 Serum or plasma potassium measurement (moles/volume) 4.5 mmol/L 3.6-5.0 Serum or plasma chloride measurement (moles/volume) 117 mmol/L 98-107 Carbon dioxide 17 mmol/L 21-32 Serum or plasma anion gap determination (moles/volume) 5 mmol/L 5-14 Serum or plasma urea nitrogen measurement (mass/volume ) 41 mg/dL 7-18 Serum or plasma creatinine measurement (mass/volume) 1.96 mg/dL 0.60-1.30 Serum or plasma urea nitrogen/creatinine mass ratio 21 NRG Serum or plasma creatinine measurement w ith calculation of estimated glomerular filtration rate 24 NRG Serum or plasma glucose measurement (mass/volume) 111 mg/dL 70-105 Serum or plasma calcium measurement (mass/volume) 7.9 mg/dL 8.5-10.1 Serum or plasma phosphate measurement (m ass/volume) - 12/27/19 03:25 Serum or plasma phosphate measurement (mass/volume) 2.9 mg/dL 2.3-4.7 Magnesium - 12/27/19 03:25 Magnesium 2.1 mg/dL 1.6-2.4 Complete blood count (CBC) with automate d white blood cell (WBC) differential - 12/27/19 03:35 Blood leukocytes automated count (number/volume) 10.3 10*3/uL 4.3-11.0 Blood erythrocytes automated count (number/volume) 2.28 10*6/uL 4.35-5.85 Venous blood hemoglobin measurement (mass/volume) 6.2 g/dL 11.5-16.0 Blood hematocrit (volume fraction) 20 % 35-52 Automated erythrocyte mean corpuscular volume 88 [ foz_us] 80-99 Automated erythrocyte mean corpuscular h emoglobin (mass per erythrocyte) 27 pg 25-34 Automated erythrocyte mean corpuscular h emoglobin concentration measurement (mass/volume) 31 g/dL 32-36 Automated erythrocyte distribution width ratio 14. 9 % 10.0- 14.5 Automated blood platelet count (count/volume) 236 10*3/uL 130-400 Automated blood platelet mean volume measurement 11.0 [foz_us] 7.4-10.4 Automated blood neutrophils/100 leukocytes 75 % 42-75 Automated blood lymphocytes/100 leukocytes 13 % 12-44 Blood monocytes/100 leukocytes 11 % 0-12 Automated blood eosinophils/100 leukocytes 1 % 0-10 Automated blood basophils/100 leukocytes 0 % 0-10 Blood neutrophils automated count (number/volume) 7.7 10*3 1.8-7.8 Blood lymphocytes automated count (number/volume) 1.4 10*3 1.0-4.0 Blood monocytes automated count (number/volume) 1. 1 10*3 0.0-1.0 Automated eosinophil count 0.1 10*3/uL 0 .0-0.3 Automated blood basophil count (count/volume) 0.0 10*3/uL 0.0-0.1 Automated reticulocyte percentage - 04/10 03:35 Blood erythrocytes automated count (number/volume) 6.29 10*6/uL 4.35-5.85 Blood reticulocytes count (number/volume) 191 10*9 /L 24-90 Blood reticulocytes/100 erythrocytes 3.04 % 0.50-2.40 Serum or plasma ferritin measurement (ma ss/volume) - 12/27/19 03:35 Serum or plasma ferritin measurement (mass/volume) 199.4 % 20.0-177.0 Automated reticulocyte percentage - 04/10 03:35 Blood erythrocytes automated count (number/volume) 2.01 10*6/uL 4.35-5.85 Blood reticulocytes count (number/volume) 51 10*9/ L 24-90 Blood reticulocytes/100 erythrocytes 2.54 % 0.50-2.40 IRON TEST - 12/27/19 03:35 Serum or plasma iron measurement (mass/volume) 17 % 35-180 RED CELLS LEUKO REDUCED AS1 - 12/27/19 0 6:26 RED CELLS LEUKO REDUCED AS1 T RANSFUSED 12/27/19 [id number] NRG Blood type T Indirect antibody screen pa víctor - 12/27/19 06:26 WRISTBAND NUMBER [id number] NRG ABO+Rh group AP NRG Blood group antibody screen NEGATIVE NR G Direct antiglobulin test.XXX reagent - 0 12/27/19 06:26 Direct antiglobulin test.IgG specific reagent NEGA TIVE NRG Direct antiglobulin test.complement C3 specific re POSITIVE NRG Direct antiglobulin test.XXX reagent - 0 12/27/19 06:35 Direct antiglobulin test.IgG specific reagent NEGA TIVE NRG Direct antiglobulin test.complement C3 specific re POSITIVE NRG OCCULT BLOOD STOOL - 12/27/19 12:02 Stool gastrointestinal hemoglobin detection NEGATI VE NEGATIVE Complete blood count (CBC) with automate d white blood cell (WBC) differential - 12/27/19 13:35 Blood leukocytes automated count (number/volume) 11.2 10*3/uL 4.3-11.0 Blood erythrocytes automated count (number/volume) 2.79 10*6/uL 4.35-5.85 Venous blood hemoglobin measurement (mass/volume) 7.8 g/dL 11.5-16.0 Blood hematocrit (volume fraction) 25 % 35-52 Automated erythrocyte mean corpuscular volume 89 [ foz_us] 80-99 Automated erythrocyte mean corpuscular h emoglobin (mass per erythrocyte) 28 pg 25-34 Automated erythrocyte mean corpuscular h emoglobin concentration measurement (mass/volume) 32 g/dL 32-36 Automated erythrocyte distribution width ratio 15. 0 % 10.0- 14.5 Automated blood platelet count (count/volume) 260 10*3/uL 130-400 Automated blood platelet mean volume measurement 10.9 [foz_us] 7.4-10.4 Automated blood neutrophils/100 leukocytes 76 % 42-75 Automated blood lymphocytes/100 leukocytes 13 % 12-44 Blood monocytes/100 leukocytes 10 % 0-12 Automated blood eosinophils/100 leukocytes 2 % 0-10 Automated blood basophils/100 leukocytes 0 % 0-10 Blood neutrophils automated count (number/volume) 8.5 10*3 1.8-7.8 Blood lymphocytes automated count (number/volume) 1.4 10*3 1.0-4.0 Blood monocytes automated count (number/volume) 1. 1 10*3 0.0-1.0 Automated eosinophil count 0.2 10*3/uL 0 .0-0.3 Automated blood basophil count (count/volume) 0.0 10*3/uL 0.0-0.1 Comprehensive metabolic panel - 12/27/19 13:35 Serum or plasma sodium measurement (moles/volume) 142 mmol/L 135-145 Serum or plasma potassium measurement (moles/volume) 4.8 mmol/L 3.6-5.0 Serum or plasma chloride measurement (moles/volume) 117 mmol/L 98-107 Carbon dioxide 18 mmol/L 21-32 Serum or plasma anion gap determination (moles/volume) 7 mmol/L 5-14 Serum or plasma urea nitrogen measurement (mass/volume ) 37 mg/dL 7-18 Serum or plasma creatinine measurement (mass/volume) 1.88 mg/dL 0.60-1.30 Serum or plasma urea nitrogen/creatinine mass ratio 20 NRG Serum or plasma creatinine measurement w ith calculation of estimated glomerular filtration rate 25 NRG Serum or plasma glucose measurement (mass/volume) 98 mg/dL 70-105 Serum or plasma calcium measurement (mass/volume) 8.4 mg/dL 8.5-10.1 Serum or plasma total bilirubin measurement (mass/volu me) 1.4 mg/dL 0.1-1.0 Serum or plasma alkaline phosphatase kyler surement (enzymatic activity/volume) 135 U/L 40-136 Serum or plasma aspartate aminotransfera se measurement (enzymatic activity/volume) 13 U/L 5-34 Serum or plasma alanine aminotransferase measurement (enzymatic activity/volume) 11 U/L 0-55 Serum or plasma protein measurement (mass/volume) 6.2 g/dL 6.4-8.2 Serum or plasma albumin measurement (mass/volume) 3.2 g/dL 3.2-4.5 CALCIUM CORRECTED 9.0 mg/dL 8.5-10.1 Bilirubin direct - 12/27/19 13:35 Bilirubin direct 0.6 mg/dL 0.0-0.3 Serum ragweed IgE antibody assay - 12/27 13:35 Serum ragweed IgE antibody assay 264 U/L 125-220 HOMOCYSTEINE - 12/27/19 13:35 Homocysteine [mass/volume] in serum or plasma 10.6 % 0.0- 15.4 Serum iron and total iron binding capaci ty panel - 12/27/19 13:35 TIBC 246 % 280-380 UIBC 170 % 55-450 Serum or plasma iron measurement (mass/volume) 76 % 35-180 Total iron binding capacity and transferrin saturation measurement 31 % 15-50 Serum or plasma ferritin measurement (mass/volume) 191.7 % 20.0-177.0 Complete blood count (CBC) with automate d white blood cell (WBC) differential - 12/28/19 03:35 Blood leukocytes automated count (number/volume) 8.4 10*3/uL 4.3-11.0 Blood erythrocytes automated count (number/volume) 2.93 10*6/uL 4.35-5.85 Venous blood hemoglobin measurement (mass/volume) 8.0 g/dL 11.5-16.0 Blood hematocrit (volume fraction) 26 % 35-52 Automated erythrocyte mean corpuscular volume 88 [ foz_us] 80-99 Automated erythrocyte mean corpuscular h emoglobin (mass per erythrocyte) 27 pg 25-34 Automated erythrocyte mean corpuscular h emoglobin concentration measurement (mass/volume) 31 g/dL 32-36 Automated erythrocyte distribution width ratio 15. 3 % 10.0- 14.5 Automated blood platelet count (count/volume) 269 10*3/uL 130-400 Automated blood platelet mean volume measurement 10.9 [foz_us] 7.4-10.4 Automated blood neutrophils/100 leukocytes 63 % 42-75 Automated blood lymphocytes/100 leukocytes 20 % 12-44 Blood monocytes/100 leukocytes 13 % 0-12 Automated blood eosinophils/100 leukocytes 3 % 0-10 Automated blood basophils/100 leukocytes 1 % 0-10 Blood neutrophils automated count (number/volume) 5.3 10*3 1.8-7.8 Blood lymphocytes automated count (number/volume) 1.7 10*3 1.0-4.0 Blood monocytes automated count (number/volume) 1. 1 10*3 0.0-1.0 Automated eosinophil count 0.3 10*3/uL 0 .0-0.3 Automated blood basophil count (count/volume) 0.0 10*3/uL 0.0-0.1 Whole blood basic metabolic panel - 05/11 03:35 Serum or plasma sodium measurement (moles/volume) 141 mmol/L 135-145 Serum or plasma potassium measurement (moles/volume) 4.6 mmol/L 3.6-5.0 Serum or plasma chloride measurement (moles/volume) 118 mmol/L 98-107 Carbon dioxide 16 mmol/L 21-32 Serum or plasma anion gap determination (moles/volume) 7 mmol/L 5-14 Serum or plasma urea nitrogen measurement (mass/volume ) 29 mg/dL 7-18 Serum or plasma creatinine measurement (mass/volume) 1.67 mg/dL 0.60-1.30 Serum or plasma urea nitrogen/creatinine mass ratio 17 NRG Serum or plasma creatinine measurement w ith calculation of estimated glomerular filtration rate 29 NRG Serum or plasma glucose measurement (mass/volume) 84 mg/dL 70-105 Serum or plasma calcium measurement (mass/volume) 8.4 mg/dL 8.5-10.1 Serum or plasma phosphate measurement (m ass/volume) - 12/28/19 03:35 Serum or plasma phosphate measurement (mass/volume) 2.7 mg/dL 2.3-4.7 Magnesium - 12/28/19 03:35 Magnesium 2.1 mg/dL 1.6-2.4 Complete blood count (CBC) with automate d white blood cell (WBC) differential - 12/29/19 05:45 Blood leukocytes automated count (number/volume) 6.3 10*3/uL 4.3-11.0 Blood erythrocytes automated count (number/volume) 2.53 10*6/uL 4.35-5.85 Venous blood hemoglobin measurement (mass/volume) 7.9 g/dL 11.5-16.0 Blood hematocrit (volume fraction) 23 % 35-52 Automated erythrocyte mean corpuscular volume 90 [ foz_us] 80-99 Automated erythrocyte mean corpuscular h emoglobin (mass per erythrocyte) 31 pg 25-34 Automated erythrocyte mean corpuscular h emoglobin concentration measurement (mass/volume) 35 g/dL 32-36 Automated erythrocyte distribution width ratio 15. 1 % 10.0- 14.5 Automated blood platelet count (count/volume) 253 10*3/uL 130-400 Automated blood platelet mean volume measurement 10.8 [foz_us] 7.4-10.4 Automated blood neutrophils/100 leukocytes 63 % 42-75 Automated blood lymphocytes/100 leukocytes 23 % 12-44 Blood monocytes/100 leukocytes 11 % 0-12 Automated blood eosinophils/100 leukocytes 3 % 0-10 Automated blood basophils/100 leukocytes 1 % 0-10 Blood neutrophils automated count (number/volume) 4.0 10*3 1.8-7.8 Blood lymphocytes automated count (number/volume) 1.4 10*3 1.0-4.0 Blood monocytes automated count (number/volume) 0. 7 10*3 0.0-1.0 Automated eosinophil count 0.2 10*3/uL 0 .0-0.3 Automated blood basophil count (count/volume) 0.0 10*3/uL 0.0-0.1 Comprehensive metabolic panel - 12/29/19 05:45 Serum or plasma sodium measurement (moles/volume) 139 mmol/L 135-145 Serum or plasma potassium measurement (moles/volume) 4.3 mmol/L 3.6-5.0 Serum or plasma chloride measurement (moles/volume) 113 mmol/L 98-107 Carbon dioxide 16 mmol/L 21-32 Serum or plasma anion gap determination (moles/volume) 10 mmol/L 5-14 Serum or plasma urea nitrogen measurement (mass/volume ) 23 mg/dL 7-18 Serum or plasma creatinine measurement (mass/volume) 1.73 mg/dL 0.60-1.30 Serum or plasma urea nitrogen/creatinine mass ratio 13 NRG Serum or plasma creatinine measurement w ith calculation of estimated glomerular filtration rate 28 NRG Serum or plasma glucose measurement (mass/volume) 86 mg/dL 70-105 Serum or plasma calcium measurement (mass/volume) 8.6 mg/dL 8.5-10.1 Serum or plasma total bilirubin measurement (mass/volu me) 0.4 mg/dL 0.1-1.0 Serum or plasma alkaline phosphatase kyler surement (enzymatic activity/volume) 121 U/L 40-136 Serum or plasma aspartate aminotransfera se measurement (enzymatic activity/volume) 17 U/L 5-34 Serum or plasma alanine aminotransferase measurement (enzymatic activity/volume) 12 U/L 0-55 Serum or plasma protein measurement (mass/volume) 6.1 g/dL 6.4-8.2 Serum or plasma albumin measurement (mass/volume) 3.2 g/dL 3.2-4.5 CALCIUM CORRECTED 9.2 mg/dL 8.5-10.1 Encounters ACCT No. Visit Date/Time Discharge Status Pt. Type Provider Facility Loc./Unit Complaint [id number] 12/25/2019 21:52:00 11:35:00 DIS Inpatient MARTINEZ DO TAHIR V ia [facility] ICU SEPSIS,UTI,ARF,N/V [id number] 12/25/2019 11:15:00 23:59:59 CLS Outpatient MARTINEZ DO, TAHIR Via [facility] REHAB UPPER BACK AND SHOULDER PAIN [id number] 12/04/2019 16:55:00 18:25:00 DIS Emergency KANDY SALAZAR DO a [facility] ER L SHOULDER AND ARM PAIN [id number] 08/19/2019 02:55:00 15:50:00 DIS Inpatient TAINA BETHEA, HIPOLITO Moore Via [facility] 4TH SHOULDER PAIN,POSSIBLE ATYPICAL ANGINA,POSS [id number] 04/11/2019 16:47:00 019 17:20:00 DIS Emergency MANDIE GARAY APRN Via [facility] ER FALL [id number] 04/03/2019 08:20:00 019 09:30:00 DIS Emergency DIANA BETHEA, LEVY Gregory Via [facility] ER LEFT FOOT/TOES INJURY [id number] 09/21/2018 11:15:00 018 11:53:00 DIS Outpatient JUAN DUKES TAHIR Via [facility] REHAB LUMBAGO WITH BILATERAL SCIATICA [id number] 08/09/2018 17:08:00 018 23:59:59 CLS Outpatient MARTINEZ DO, TAHIR Via [facility] RAD OTHER CHRONIC PAIN, GENOVEVA SALGIA, PAIN IN LEFT HIP [id number] 08/04/2018 12:21:00 018 14:50:00 DIS Emergency OMER BETHEA, KAYCEE Barillas Via [facility] ER LOWER LEFT BACK PAIN [id number] 06/06/2018 08:05:00 018 23:59:59 CLS Outpatient KATHY VILLALTA DO Via [facility] RAD ASTHMA,DECREASED DIFFUS ION CAPACITY OF LUNG [id number] 06/02/2018 11:06:00 018 23:59:59 CLS Outpatient SANAZ AWAD APRN Via [facility] LAB ASTHMA [id number] 06/02/2018 11:00:00 018 23:59:59 CLS Outpatient SANAZ AWAD APRN Via [facility] SLEEP SUSPECTED SLEEP APNEA, SLEEP DISORDER,DYSPNEA [id number] 05/05/2018 09:14:00 018 23:59:59 CLS Outpatient TAHIR MARTINEZ DO Via [facility] RAD PERIPHERAL VASCULAR DIS EASE [id number] 05/04/2018 09:36:00 018 23:59:59 CLS Outpatient TAHIR MARTINEZ DO Via [facility] RT CHRONIC OBSTRUCTIVE PUL MONARY DISEASE [id number] 04/26/2018 09:39:00 018 12:05:00 DIS Outpatient BENTLEY VEGA DO Via [facility] ENDO ANTRAL ULCER [id number] 04/19/2018 05:58:00 018 16:25:00 DIS Outpatient BENTLEY VEGA DO Via [facility] PREOP EGD [id number] 03/15/2018 06:57:00 018 09:35:00 DIS Outpatient BENTLEY VEGA DO Via [facility] ENDO DYSPHAGIA/GERD [id number] 03/11/2018 10:53:00 018 23:59:59 CLS Outpatient ELO HOLBROOK MD Via [facility] CARD R07.89 CHEST PAIN [id number] 03/08/2018 05:34:00 018 13:48:00 DIS Outpatient BENTLEY VEGA DO Via [facility] PREOP EGD [id number] 02/16/2018 07:15:00 018 23:59:59 CLS Outpatient ELO HOLBROOK MD Via [facility] CARD R07.89 CHEST PAIN [id number] 01/28/2018 03:09:00 Maricruz 23:59:59 CLS Outpatient MARTINEZ DO, TAHIR Via [facility] RT WHEEZING [id number] 11/13/2015 13:09:00 015 23:59:59 CLS Outpatient MERRY BETHEA, FRANKLIN melgar [facility] ONC [id number] 08/19/2015 14:32:00 015 23:59:59 CLS Outpatient MARTINEZ DO, TAHIR Via [facility] RAD CHRONIC AIRWAY OBSTRUCTION,DEHYDRATION [id number] 05/18/2015 22:09:00 015 00:28:00 DIS Emergency NANI BETHEA, NINA Gomez Via [facility] ER BLADDER INFECTION, CHIL LING [id number] 04/18/2015 11:40:00 015 23:59:59 CLS Outpatient MARTINEZ DO TAHIR Via [facility] RAD PVD,CLAUDICATION [id number] 11/01/2014 18:00:00 014 13:23:00 DIS Inpatient TAHIR MARTINEZ DO, V [facility] CSD CP [id number] 04/20/2014 12:08:00 014 15:25:00 DIS Outpatient BENTLEY VEGA DO Via [facility] SDC DYSPHAGIA [id number] 04/18/2014 07:38:00 014 23:59:59 CLS Outpatient BENTLEY VEGA DO Via [facility] PREOP DYSPHAGIA [id number] 11/16/2013 07:09:00 013 23:59:59 CLS Outpatient VEGA BENTLEY DUKES Via [facility] PREOP DYSPHASIA [id number] 06/16/2013 15:54:00 013 10:15:00 DIS Outpatient ROSIE SUAREZ MD Via [facility] REHAB RT TKR [id number] 05/24/2013 13:30:00 013 12:30:00 DIS Inpatient SHEREEN SMITH MD Via [facility] IRF OSTEOARTHRITIS RIGHT KN EE [id number] 05/22/2013 06:00:00 07/03/2 013 13:30:00 DIS Inpatient ROSIE SUAREZ MD Via [facility] SURGICAL OSTEOARTHRITIS RIGHT KN EE [id number] 05/16/2013 09:58:00 23:59:59 CLS Outpatient ROSIE SUAREZ MD Via [facility] PREOP OSTEOARTHRITIS RIGHT KN EE [id number] 05/15/2013 14:34:00 23:59:59 CLS Outpatient [id number] 04/12/2013 09:25:00 23:59:59 CLS Outpatient TAHIR MARTINEZ DO Via [facility] RT SURGERY CLEARANCE,ASTHM A [id number] 04/07/2013 06:47:00 13:50:00 DIS Outpatient ELO HOLBROOK MD Via [facility] CATH CP, ABN STRESS, SOB, CA D, HTN, HLP [id number] 04/05/2013 11:37:00 23:59:59 CLS Outpatient ELO HOLBROOK MD Via [facility] RAD CP,CAD [id number] 04/04/2013 14:31:00 23:59:59 CLS Outpatient [id number] 12/28/2019 11:35:[address] Inpatient TAHIR MARTINEZ DO Via [facility] [place] IRF DEBILITY [id number] 05/06/2016 14:45:00 Document Registration [id number] 11/01/2014 17:35:00 Document Registration [id number] 11/01/2014 17:35:00 Document Registration [id number] 12/03/2012 10:49:00 Document Registration [id number] 09/18/2011 07:00:00 Document Registration [id number] 07/17/2010 10:46:00 Document Registration [id number] 08/02/2009 08:38:00 Document Registration
== END 2019-12-28 11:35 | DRG 872 ==
LOC: EDUNIT# 19:34 → ER 19:35 → ICU 21:52
PROVIDERS: ADMIT Internal Medicine; ATTEND Internal Medicine
DX: A41.51 Sepsis due to Escherichia coli [E. coli] (principal); N39.0 Urinary tract infection, site not specified; N17.9 Acute kidney failure, unspecified; T82.855A Stenosis of coronary artery stent, initial encounter; I13.0 Hypertensive heart and chronic kidney disease with heart failure and stage 1 through stage 4 chronic kidney disease, or unspecified chronic kidney disease; E87.2 Acidosis; N18.9 Chronic kidney disease, unspecified; I50.9 Heart failure, unspecified; I25.119 Atherosclerotic heart disease of native coronary artery with unspecified angina pectoris; Z66 Do not resuscitate; I10 Essential (primary) hypertension; J44.9 Chronic obstructive pulmonary disease, unspecified; E78.00 Pure hypercholesterolemia, unspecified; I65.29 Occlusion and stenosis of unspecified carotid artery; I77.1 Stricture of artery; R65.20 Severe sepsis without septic shock; K22.4 Dyskinesia of esophagus; G62.9 Polyneuropathy, unspecified; D64.9 Anemia, unspecified; M10.9 Gout, unspecified; K29.50 Unspecified chronic gastritis without bleeding; K21.9 Gastro-esophageal reflux disease without esophagitis; E87.5 Hyperkalemia; F41.9 Anxiety disorder, unspecified; M54.9 Dorsalgia, unspecified; S80.02XA Contusion of left knee, initial encounter; W18.09XA Striking against other object with subsequent fall, initial encounter; Z95.5 Presence of coronary angioplasty implant and graft; Z87.891 Personal history of nicotine dependence; Z87.11 Personal history of peptic ulcer disease
CPT/HCPCS: 36415; 71045; 71250; 74176; 80048; 80053; 81000; 82248; 82274; 82728; 83070; 83090; 83540; 83605; 83615; 83735; 83921; 84100; 84145; 84484; 85007; 85025; 85027; 85045; 85610; 85730; 86141; 86157; 86850; 86880; 86886; 86900; 86901; 86922; 87040; 87077; 87081; 87088; 87186; 87804; 93005; 94640; 96361; 96374; 96375; 96376

== ENCOUNTER 2019-12-28 10:12 | Inpatient (IN) | payer MEDICARE, OTHER ==
[~2019-12-28] VITALS: Ht 152 cm; Wt 76.3 kg
[~2019-12-28 10:12] MED LIST changes: +ALBU18HF2 INH; +ALPR0.254 PO; +FLUT1BLS3 INH; +HYDR-3812 PO; +HYDR-700 PO; +METH1ADH5 TP; +MONT10TA24 PO; +TRAM50TA3 PO
[2019-12-28] MEDS ORDERED: ONDANSETRON 4 MG/2 ML (SDV) Z0FRAN IV PRN (10:30)
[2019-12-28] MEDS ORDERED: diphenhydrAMINE 25 MG TAB (BENADRYL) PO PRN (10:30)
[2019-12-28] MEDS ORDERED: guaiFENesin/CODEINE (ROBITUSSIN AC) 10ML UDC PO PRN (10:30)
[2019-12-28] MEDS ORDERED: LOPERAMIDE 2 MG (IMODIUM) TABLET PO PRN (10:30)
[2019-12-28] MEDS ORDERED: ALPRAZolam 0.25 MG (XANAX) TAB PO PRN ×2 (10:30→13:00)
[2019-12-28] MEDS ORDERED: LACTULOSE SYRUP 10GM/15ML (ENULOSE) 30ML UDC PO PRN (10:30)
[2019-12-28] MEDS ORDERED: DOCUSATE SODIUM 100 MG (COLACE) CAP PO PRN (10:30)
[2019-12-28] MEDS ORDERED: CALCIUM CARBONATE 500 MG (TUMS) TAB.CHEW PO PRN (10:30)
[2019-12-28] MEDS ORDERED: ENOXAPARIN 40 MG/0.4 ML (LOVENOX) SYR SC SCH (10:30)
[2019-12-28] MEDS ORDERED: BISACODYL 10 MG SUPP (DULCOLAX) PR PRN (10:30)
[2019-12-28] MEDS ORDERED: ONDANSETRON 4 MG (ZOFRAN) ORAL DISSOLVE TAB PO PRN (10:30)
[2019-12-28] MEDS ORDERED: FLEET ENEMA ADULT 1 EA BTL PR PRN (10:30)
--- NOTE | 2019-12-28 11:43 | Progress Note ---
EV COYNE,MED STUDENT 12/28/19 1143: Progress Note CC: Sepsis with UTI HPI: Mrs. Moreira is an 89 year old female that came to the emergency department on Wednesday12/25/19 with a complaint of fevers and chills that began on Wednesday12/24/19. After a workup in the emergency department Mrs. Moreira was diagnosed with sepsis and a UTI. She was admitted to the ICU on 12/25/19 and transferred to inpatient rehab on 12/28/19. She as well as her family describe "episodes" of shaking that begins in her feet and travels upward resulting in full body shaking and rigors. During this time that patient experiences diffuse pain as well as nausea, she states the pain is the worst in her back. The typical duration is around several minutes but varies based on the patient and families reports. The episodes typically are preceded by chills. The shaking episodes originally were becoming more frequent but since admission to the ICU have to 1-2 times daily. She has been getting zofran, ativan, and pain medication at initiation of the episodes which seem to help the intensity. Mrs. Moreira did note some confusion after she awoke this morning and is complaining of her days and night being switched. She also admits to dizziness, weakness, chills, and malaise but states in between her episodes of shaking she is feeling much improved. She also admits of dysphagia with both solids and liquids. She states this is a chronic problem for her and has not worsened or changed recently. She takes pepcid regularly but has not been taking the prescribed Carafate. She states she manages the dysphagia by taking small bites which seems to decrease the symptoms. Family reports a fall at home on 12/17 with no injuries other than a noted hematoma on LLE. Patient is of advanced age and multiple medical conditions including HTN, CAD, severe gastritis, chronic anemia, COPD, renal failure, hiatal hernia. Allergies: codeine Surgical history: cholecystectomy, appendectomy, last EGD done 07/2019, coronary stents, joint replacement Alcohol: denies use Tobacco: former smoker, quit 1979 Physical Exam: General: alert and oriented x3, well nourished/well developed, chronically ill, mild distress Heart: regular rate and rhythm, no murmurs, no pedal edema Lungs: diminished lung sounds, lungs clear to auscultation bilaterally, no respiratory distress, no accessory muscle use Assessment and Plan: Sepsis/Bacteremia UTI Anemia Severe Gastris Continue ceftriaxone, IVF, pepcid and carafate. She has been on ceftriaxone IV for bacteremia for 4 days. Will continue until patient has been treated for 7 days. Ativan, Zofran, and fentanyl as needed. Continue home medications including pepcid and carafate Monitor CBC as indicated by Dr. Peguero PT/OT for increase in strength,stability with history of fall, and ADL assistance Small frequent meals with small bites as well as speech therapy evaluation for history of dysphagia HALLE MARTINEZ DO 12/28/19 2131: Supervisory-Addendum Brief Verification & Attestation Participated in pt care: history, MDM, physical Personally performed: exam, history, MDM, supervision of care Care discussed with: Medical Student Procedures: n/a Results interpretation: Verified all documentation Verification and Attestation of Medical Student E/M Service A medical student performed and documented this service in my presence. I reviewed and verified all information documented by the medical student and made modifications to such information, when appropriate. I personally performed the physical exam and medical decision making. Halle Martinez, Dec 28, 2019,21:31 EV COYNE MED STUDENT Dec 28, 2019 11:43 HALLE MARTINEZ DO Dec 28, 2019 21:31
--- NOTE | 2019-12-28 12:23 | Physical Therapy Evaluation ---
PT Evaluation-General Medical Diagnosis Admission Date 12/28/2019 Medical Diagnosis: debility Onset Date: Dec 28, 2019 Therapy Diagnosis Therapy Diagnosis: N/V; debility Height/Weight Height (Feet): 5 Height (Inches): 0 Weight (Pounds): 160 Weight (Ounces): 0.0 Precautions Precautions/Isolations: Standard Precautions Referral Physician: Oleg Reason for Referral: Evaluation/Treatment Medical History Pertinent Medical History: CAD, COPD, GERD, HTN Additional Medical History DDD, chronic anemia Current History Pt admitted to acute hosptal on 12/25/2019 with dx of sepsis, UTI and acute renal failure. Reviewed History: Yes Social History Home: Single Level Current Living Status: Alone (family support frequentl; last few weeks, 24 hour care) Entry Into Home: Stairs With Railing PT Steps Into Home: 3 PT Steps Inside Home: 0 (doesnt use) Prior Prior Level of Function SCALE: Activities may be completed with or without assistive devices. 8-Pomvxkkemp-smjttxk completes the activity by him/herself with no assistance from a helper. 5-Set-up or Clean-up Assistance-helper sets up or cleans up; patient completes activity. [place] assists only prior to or following the activity. 4-Supervision or Touching Assistance-helper provides verbal cues and/or touching/steadying and/or contact guard assistance as patient completes activity. Assistance may be provided throughout the activity or intermittently. 3-Partial/Moderate Assistance-helper does LESS THAN HALF the effort. [place] lifts, holds or supports trunk or limbs, but provides less than half the effort. 2-Substantial/Maximal Assistance-helper does MORE THAN HALF the effort. [place] lifts or holds trunk or limbs and provides more than half the effort. 9-Uzqyrmqkw-uzjtft does ALL the effort. Patient does none of the effort to complete the activity. Or, the assistance of 2 or more helpers is required for the patient to complete the activity. If activity was not attempted, code reason: 7-Patient Refused. 9-Not Applicable-not attempted and the patient did not perform the activity before the current illness, exacerbation or injury. 10-Not Attempted due to Environmental Limitations-(lack of equipment, weather restraints, etc.). 88-Not Attempted due to Medical Conditions or Safety Concerns. Bed Mobility: 6 Transfers (B,C,W/C): 6 Gait: 6 (FWW) Stairs: 6 Indoor Mobility (Ambulation): Independent Prior Devices Use: Walker Prior to 1 month ago, she was driving and walking community distances. PT Evaluation-Current Subjective Pt currently denies pain. Reports she is tired. Reports she has her days and n ights mixed up. Agrees to PT. Pain Numeric Pain Scale: 0-No Pain Pt/Family Goals Her goal is to return home with family support at a mod indep level. Objective Patient Orientation: Person, Place, Time, Situation Attachments: Oxygen (2l/min), Bond Catheter ROM/Strength ROM Lower Extremities WFL Strength Lower Extremities B LE strength is grossly 3/5 with decreased functional activity tolerance. Integumentary/Posture Integumentary refer to nursing notes for full assessment. Bowel Incontinence: No Bladder Incontinence: Bond Cath Posture rounded shoulders and forward head. Neuromuscular (Tone, Coordination, Reflexes) intact and without noted deficit. Sensory Vision: Functional Hearing: Impaired Hand Dominance: Right Sensation Right Lower Extremit: Intact Sensation Left Lower Extremity: Intact Transfers Roll Left to Right (QC): 3 Sit to Lying (QC): 3 Lying to Sitting/Side of Bed(Q: 3 Sit to Stand (QC): 3 Chair/Eyo-yn-Clbla Xfer(QC): 3 Toilet Transfer: 3 Car Transfer (QC): 88 Min assist with functional transfers for safety and to assist [facility] balance. Gait Does the Patient Walk?: Yes Mode of Locomotion: Walk Anticipated Mode of Locomotion: Walk Walk 10 feet (QC): 3 Walk 50 ft with 2 Turns(QC): 3 Walk 150 ft (QC): 88 Walking 10ft/uneven surface-QC: 88 Distance: 50 ft x 2 Gait Assistive Device: FWW Comments/Gait Description Min assist iwth functional gait for balance and safety. Wheelchair Training Does the Pt Use a Wheelchair?: No Stairs 1 Step (curb) (QC): 88 4 Steps (QC): 88 12 Steps (QC): 88 Balance Sitting Static: Normal Sitting Dynamic: Normal Standing Static: Fair Standing Dynamic: Fair Picking up an Object (QC): 88 Treatment Functional transfer training and gait; worked on safety transfers and education on ARU expectation. Assessment/Needs pt presents post acute hospital stay with a recent decline in functional strength, balance and activity tolerance that impairs bed mobiltiy, transfers and gait. She will benefit from skilled PT to address deficits to allow pt to return to prior functional at home. Rehab Potential: Good PT Short Term Goals Short Term Goals Time Frame: Jan 04, 2020 Roll Left & Right: 4 Sit to lyin Lying to sitting on side of be: 4 Sit to stand: 4 Walk 150 feet: 4 PT Claim Professional Goals Claim Professional Goals PT Claim Professional Goals Time Frame: Jan 18, 2020 Roll Left & Right (QC): 6 Sit to Lying (QC): 6 Lying-Sitting on Side/Bed(QC): 6 Sit to Stand (QC): 6 Chair/Atm-ul-Ymazw Xfer(QC): 6 Toilet Transfer (QC): 6 Car Transfer (QC): 6 Does the Patient Walk: Yes Walk 10 feet (QC): 6 Walk 50ft with 2 Turns (QC): 6 Walk 150 ft (QC): 6 Walking 10ft on Uneven Surface: 5 1 Step (curb) (QC): 5 4 Steps (QC): 5 12 Steps (QC): 9 Picking up an Object (QC): 4 Does the Pt use WC or Scooter?: No PT Plan Problem List Problem List: Activity Tolerance, Functional Strength, Safety, Balance, Gait, Transfer, Bed Mobility Treatment/Plan Treatment Plan: Continue Plan of Care Treatment Plan: Bed Mobility, Education, Functional Activity Monica, Functional Strength, Group Therapy, Gait, Safety, Therapeutic Exercise, Transfers Treatment Duration: Jan 18, 2020 Frequency: At least 5 of 7 days/Wk (IRF) Estimated Hrs Per Day: 1.5 hours per day Patient and/or Family Agrees t: Yes Safety Risks/Education Patient Education: Transfer Techniques, Safety Issues Teaching Recipient: Patient Teaching Methods: Demonstration, Discussion Response to Teaching: Reinforcement Needed Discharge Recommendations Therapy Discharge Recommendati: Post Acute PT Time/GCodes Time In: 1135 Time Out: 1240 Total Billed Treatment Time: 65 Total Billed Treatment visit EVM 10 FA 55 SUZY RDZ PT Dec 28, 2019 12:23
[2019-12-28 12:25] VITALS: BP 171/68
--- NOTE | 2019-12-28 12:28 | NUR ---
MINDY FISHER admitted to room 227-1, with an admitting diagnosis of DEBILITY, on 12/28/19 from ICU via WHEELCHAIR, accompanied by STAFF AND FAMILY. MINDY FISHER introduced to surroundings, call light, bed controls, phone, TV, temperature control, lights, meal times, smoking policy, visitor policy, side rail policy, bathrooms and showers. Patient Rights given to patient in the handbook. MINDY FISHER verbalizes understanding that [facility] is not responsible for the loss or damage to any personal effects or valuables that are kept in the patients possession during their hospitalization. The following Patient Care Plans were discussed with the PATIENT: Discharge Planning, IMPAIRED MOBILITY, HIGH RISK: IMPAIRED SKIN INTEGRITY, HIGH RISK: INJURY, and KNOWLEDGE DEFICIT. MINDY FISHER verbalizes understanding of Interdisciplinary Patient Education. Patient received Patient Rights Booklet, which includes Privacy Act Statement and Data Collection Information Summary. Addendum: 12/28/19 at 1230 by TAVON JAEGER RN ACTUAL TIME... [id number].
--- NOTE | 2019-12-28 12:30 | NUR ---
REVIEWED MED REC IT WAS REPORTED UPON ADMISSION TO ICU. NO CHANGES WERE MADE WHEN THE PATIENT DISCHARGED TO REHAB.
--- NOTE | 2019-12-28 12:46 | NUR ---
PATIENT TO THE FLOOR. AUDIBLE WHEEZING NOTED. ORDERS TO SALINE LOCK IVF AND GIVE 40 MG IV LASIX X1 NOW.
[2019-12-28] MEDS ORDERED: PROMETHAZINE INJ 25 MG/ML (PHENERGAN) AMP IV PRN (13:00)
[2019-12-28] MEDS ORDERED: RT-ALBUTEROL SULF 2.5 MG/3 ML PRE-MIX VIAL INH PRN (13:00)
[2019-12-28] MEDS ORDERED: FUROSEMIDE 40 MG/4 ML INJ (LASIX) IVP NR (13:23)
--- NOTE | 2019-12-28 13:59 | NUR ---
DC MALIN CATHETER AT [address] MARTINEZ.
--- NOTE | 2019-12-28 14:26 | Occupational Therapy Eval ---
OT Evaluation-General/PLF Medical Diagnosis Admission Date Dec 28, 2019 at 11:35 Medical Diagnosis: debility Onset Date: Dec 28, 2019 Therapy Diagnosis Therapy Diagnosis: Decreased ADL function Height/Weight Height (Feet): 5 Height (Inches): 0 Weight (Pounds): 160 Weight (Ounces): 0.0 Precautions Precautions/Isolations: Fall Prevention, Standard Precautions Weight Bear Status Weight Bearing Restriction: Weight Bearing/Tolerated Referral Physician: Oleg Referral Reason: Activity Tolerance, Self Care, Evaluation/Treatment, Strengthening/ROM Medical History Pertinent Medical History: CAD, COPD, GERD, HTN Current History Pt admitted to ER/ ICU on 12/25/2019 with dx of sepsis, UTI and acute renal failure. Pt transfers to ARU on 12/28. Reviewed History: Yes Social History Home: Single Level Current Living Status: Alone (family support frequentl; last few weeks, 24 hour care) Entry Into Home: Stairs With Railing Steps Into Home: 3 Steps Inside Home: 0 (doesnt use) ADL-Prior Level of Function SCALE: Activities may be completed with or without assistive devices. 6-Qaifprqbzk-giafven completes the activity by him/herself with no assistance from a helper. 5-Set-up or Clean-up Assistance-helper sets up or cleans up; patient completes activity. [place] assists only prior to or following the activity. 4-Supervision or Touching Assistance-helper provides verbal cues and/or touching/steadying and/or contact guard assistance as patient completes activity. Assistance may be provided throughout the activity or intermittently. 3-Partial/Moderate Assistance-helper does LESS THAN HALF the effort. [place] lifts, holds or supports trunk or limbs, but provides less than half the effort. 2-Substantial/Maximal Assistance-helper does MORE THAN HALF the effort. [place] lifts or holds trunk or limbs and provides more than half the effort. 7-Sshecksap-ijyzww does ALL the effort. Patient does none of the effort to complete the activity. Or, the assistance of 2 or more helpers is required for the patient to complete the activity. If activity was not attempted, code reason: 7-Patient Refused. 9-Not Applicable-not attempted and the patient did not perform the activity before the current illness, exacerbation or injury. 10-Not Attempted due to Environmental Limitations-(lack of equipment, weather restraints, etc.). 88-Not Attempted due to Medical Conditions or Safety Concerns. ADL PLOF Comments Pt was IND with ADLs, though required SUP for safety. Pt has had multiple recent falls, requiring family to supervise pt. Family has been present past 2 weeks (14/06) Pt receives meals from community for most days of the week. Family completes grocery shopping. Self Care: Independent Functional Cognition: Independent DME/Equipment: Bath Chair (does not utilize but has), Bedside Commode, Grab Bars, Shower, Tall Toilet DME/Equipment Comments Has bedside commode, tall toilet, 2WW, SPC, shower chair. Pt does not utilize shower chair/ not in shower. Occupation: retired Drive Self: No Leisure Interests: cooking, TV, family OT Current Status Subjective Pt seen in recliner chair with 2 granddaughters and daughter present. Pt denies pain, agreeable to OT eval/ treat. Pt states weakness, family states concern of "wheeziness" and nursing notified. Mental Status/Objective Patient Orientation: Person, Place, Situation, Normal For Age Attachments: Bond Catheter, Oxygen Current Glasses/Contacts: Yes (reading) Hearing Aids: Yes (1- not wearing.) Dentures/Partials: Yes Hand Dominance: Right Upper Extremity ROM Decreased bilaterally. Able to reach ~80* shoulder flexion/ abduction due to torn RTC per pt's daughter. Crepitis noted bilateral shoulders. Upper Extremity Coordination WFL BUE Upper Extremity Sensation WFL BUE Upper Extremity Strength Decreased bilaterally ADL-Treatment Eating (QC): 6 Oral Hygiene (QC): 6 (items in front of pt on table, completes denture hygiene with toothbrush) Shower/Bathe Self (QC): 4 (SBA on EOB/ CGA in stance. Pt requires consistent cues for safety due to impulsivity.) Upper Body Dressing (QC): 3 (min A bra donning. s/u shirt.) Lower Body Dressing (QC): 4 (SBA/ CGA during hike over hips.) On/Off Footwear (QC): 3 (min A to don over L toes, SBA R foot.) Toileting Hygiene (QC): 4 (CGA in stance) Other Treatments Pt oriented, confused at times. Pt requires consistent cueing to remain seated. Family educated on importance of nursing/ therapy staff present due to this fact/ hospital expectations. Pt agrees to therapy, able to state most of experience from home to ER, daughter corrects pt. Pt and family educated on ARU expectations, OT role, and visiting hours. Pt's daughter states pt's other daughter will probably be staying/ keeping pt company. Pt states she was IND prior to hospitalization, daughter correct pt as pt has had multiple falls and family has supervised pt for ~2 weeks now /. Family and pt educated on maintaining seat while gathering items for items for pt's sponge bath, family nods. Per family member, pt stood up after OT left room, required cues to sit. Nursing notified, chair alarm placed on pt's chair, pt educated on ARU/ safety precautions and role of chair alarm/ example of such. Pt laughs but nods. Pt completes sponge bath EOB- fair endurance/ balance. Pt redresses in clothing, requires cues for sequencing and safety as pt stands without clear aim multiple times. Pt returns to recliner, stands with walker in front of recliner and educated on standing tolerance/ UE movement objective. Pt stands for ~10 min with UE movement, 02 donned throughout. Pt experiences "wheeziness" through session. 02 checked during stance/ activity and maintains over 90%. Pt returns to sit, call light in reach, all needs met, pt reminded of need to press call light if need to get up/ move/ utilize bathroom. Pt acknowledges, presses call light with success to practice. Left in room with daughter present. Education OT Patient Education: Correct positioning, Exercise program, Instructions to caregiver, Modified ADL techniques, Rehab process, Safety issues Teaching Recipient: Patient, Family Teaching Methods: Demonstration, Discussion Response to Teaching: Verbalize Understanding, Return Demonstration, Reinforcement Needed OT Short Term Goals Short Term Goals Upper body dressin Putting on/taking off footwear: 6 OT Correction Goals Correction Goals Time Frame: Jan 11, 2020 Eating (QC): 6 Oral Hygiene (QC): 6 Toileting Hygiene (QC): 6 Shower/Bathe Self (QC): 6 Upper Body Dressing (QC): 6 Lower Body Dressing (QC): 6 On/Off Footwear (QC): 6 Additional Goals: 1-Demonstrate ADL Tasks, 2-Verbalize Understanding, 3- ImproveStrength/Monica 1=Demonstrate adherence to instructed precautions during ADL tasks. 2=Patient will verbalize/demonstrate understanding of assistive devices/modifications for ADL. 3=Patient will improve strength/tolerance for activity to enable patient to perform ADL's. OT Education/Plan Problem List/Assessment Assessment: Decreased Activ Tolerance, Decreased Safety Aware, Decreased UE Strength, Impaired Cognition, Impaired Funct Balance, Impaired I ADL's, Impaired Self-Care Skills Discharge Recommendations Plan/Recommendations: Continue POC Therapy Discharge Recommendati: Scheduled Assistance, Home & Family Treatment Plan/Plan of Care Treatment,Training & Education: Yes Patient would benefit from OT for education, treatment and training to promote independence in ADL's, mobility, safety and/or upper extremity function for ADL's. Plan of Care: ADL Retraining, Caregiver Training, Functional Mobility Treatment Duration: Jan 11, 2020 Frequency: At least 5 of 7 days/Wk (IRF) Estimated Hrs Per Day: 1.5 hours per day Agreement: Yes Rehab Potential: Good Time/GCodes Start Time: 12:50 Stop Time: 14:25 Total Time Billed (hr/min): 95 Billed Treatment Time 1, EVM (10), ADL 3 (50), EX 2 (35)= 95 RUDDY LEON OTR Dec 28, 2019 14:26
[2019-12-28] MEDS: RT-ALBUTEROL SULF 2.5 MG/3 ML PRE-MIX VIAL INH SCH ×3 (14:51→23:31)
--- NOTE | 2019-12-28 15:11 | Physical Therapy Daily Note ---
PT Daily Note-Current Subjective Agrees to PT. Reports it has been abusy afternoon Transfers SCALE: Activities may be completed with or without assistive devices. 9-Jjxbttvxdh-gkrjpjw completes the activity by him/herself with no assistance from a helper. 5-Set-up or Clean-up Assistance-helper sets up or cleans up; patient completes activity. [place] assists only prior to or following the activity. 4-Supervision or Touching Assistance-helper provides verbal cues and/or touching/steadying and/or contact guard assistance as patient completes activity. Assistance may be provided throughout the activity or intermittently. 3-Partial/Moderate Assistance-helper does LESS THAN HALF the effort. [place] lifts, holds or supports trunk or limbs, but provides less than half the effort. 2-Substantial/Maximal Assistance-helper does MORE THAN HALF the effort. [place] lifts or holds trunk or limbs and provides more than half the effort. 0-Ocvvuzwfo-myjtdx does ALL the effort. Patient does none of the effort to complete the activity. Or, the assistance of 2 or more helpers is required for the patient to complete the activity. If activity was not attempted, code reason: 7-Patient Refused. 9-Not Applicable-not attempted and the patient did not perform the activity before the current illness, exacerbation or injury. 10-Not Attempted due to Environmental Limitations-(lack of equipment, weather restraints, etc.). 88-Not Attempted due to Medical Conditions or Safety Concerns. Gait Training Walk 50 ft with 2 Turns(QC): 3 (50 ft x 2 with fww wtih min assist with cues for safety) Exercises Seated Therapy Exercises: Ankle pumps, Sit to stand, Long arc quads, Hip flexion, Hip abd/add Seated Reps: 10 Assessment Current Status: Good Progress Tolerated treatment well. PT Short Term Goals Short Term Goals Time Frame: Jan 04, 2020 Roll Left & Right: 4 Sit to lyin Lying to sitting on side of be: 4 Sit to stand: 4 Walk 150 feet: 4 PT Disability Program Navigator Goals Halfway Goals PT Disability Program Navigator Goals Time Frame: Jan 18, 2020 Roll Left & Right (QC): 6 Sit to Lying (QC): 6 Lying-Sitting on Side/Bed(QC): 6 Sit to Stand (QC): 6 Chair/Clz-ub-Zdajb Xfer(QC): 6 Toilet Transfer (QC): 6 Car Transfer (QC): 6 Does the Patient Walk: Yes Walk 10 feet (QC): 6 Walk 50ft with 2 Turns (QC): 6 Walk 150 ft (QC): 6 Walking 10ft on Uneven Surface: 5 1 Step (curb) (QC): 5 4 Steps (QC): 5 12 Steps (QC): 9 Picking up an Object (QC): 4 Does the Pt use WC or Scooter?: No PT Plan Problem List Problem List: Activity Tolerance, Functional Strength, Safety, Balance, Gait, Transfer, Bed Mobility Treatment/Plan Treatment Plan: Continue Plan of Care Treatment Plan: Bed Mobility, Education, Functional Activity Monica, Functional Strength, Group Therapy, Gait, Safety, Therapeutic Exercise, Transfers Treatment Duration: Jan 18, 2020 Frequency: At least 5 of 7 days/Wk (IRF) Estimated Hrs Per Day: 1.5 hours per day Patient and/or Family Agrees t: Yes Time/GCodes Time In: 1435 Time Out: 1500 Total Billed Treatment Time: 25 Total Billed Treatment visit GT 10 EX 15 SUZY RDZ PT Dec 28, 2019 15:11
[2019-12-28] MEDS: SUCRALFATE 1 GM (CARAFATE) TAB PO SCH ×2 (15:37→22:03)
[2019-12-28] MEDS: ENOXAPARIN 30 MG/0.3 ML (LOVENOX) SYR SC SCH (15:38)
[2019-12-28 17:16] VITALS: BP 169/77
[2019-12-28] MEDS: ACETAMINOPHEN 325 MG TABLET PO PRN (17:38)
--- NOTE | 2019-12-28 17:49 | NUR ---
DR. HINOJOSA TO THE FLOOR WITH ORDERS TO KEEP ROOM 75 DEGREES OR WARMER.
--- NOTE | 2019-12-28 18:00 | Progress Note ---
Standard Progress Note Progress Notes/Assess & Plan Date Seen by a Provider: Dec 28, 2019 Time Seen by a Provider: 17:56 Progress/Assessment & Plan 89-year-old female admitted to the hospital with Escherichia coli UTI and sepsis and on IV antibiotics. Patient has previous history of cold agglutinin disease and was anemic at the time of admission and received packed red blood cell transfusion with the blood warmer. Cold agglutinin titer pending. Hemoglobin this morning was 8 g/dL and better. Patient has been transferred to rehabilitation unit for strengthening. No new complaints of today. She complained of feeling cold and occasional chills but denied any fevers. Ap petite is better and eating better. Physical exam stable. Rest of the lab work reviewed. Total bilirubin decreasing and GFR better. Repeat CBC and CMP tomorrow. Will follow patient. TAIMKA HINOJOSA Dec 28, 2019 18:00
--- NOTE | 2019-12-28 18:15 | NUR ---
TYLENOL GIVEN FOR C/O ACHY LEGS. SEE EMAR FOR DETAILS.
[2019-12-28] MEDS ORDERED: FAMOTIDINE 20 MG (PEPCID) TABLET PO SCH (21:00)
[2019-12-28] MEDS: cefTRIAXone FOR IV USE 1,000 MG in WATER (STERILE) FOR INJECTION 10 ML IV SCH (22:02)
[2019-12-28] MEDS: SENNA W/DOCUSATE (SENOKOT S) TABLET PO SCH (22:10)
[2019-12-28] MEDS: polyethylene glycoL POWDER 17 GM (MIRALAX) PACK PO SCH (22:11)
[2019-12-28] MEDS: DOCUSATE SODIUM 100 MG (COLACE) CAP PO SCH (22:11)
[2019-12-29] MEDS: RT-ALBUTEROL SULF 2.5 MG/3 ML PRE-MIX VIAL INH SCH ×6 (03:52→22:18)
[2019-12-29 06:02] LABS: BASOPHILS % (AUTO) 1 % (0-10); EOSINOPHILS # (AUTO) 0.2 10^3/uL (0.0-0.3); EOSINOPHILS % (AUTO) 3 % (0-10); HEMATOCRIT 23 % (35-52); HEMOGLOBIN 7.9 G/DL (11.5-16.0); LYMPHOCYTES # (AUTO) 1.4 X 10^3 (1.0-4.0); LYMPHOCYTES % (AUTO) 23 % (12-44); MEAN CORPUSCULAR HEMOGLOBIN 31 PG (25-34); MEAN CORPUSCULAR HGB CONC 35 G/DL (32-36); MEAN CORPUSCULAR VOLUME 90 FL (80-99); MEAN PLATELET VOLUME 10.8 FL (7.4-10.4); MONOCYTES # (AUTO) 0.7 X 10^3 (0.0-1.0); MONOCYTES % (AUTO) 11 % (0-12); NEUTROPHILS % (AUTO) 63 % (42-75); PLATELET COUNT 253 10^3/uL (130-400); RED CELL DISTRIBUTION WIDTH 15.1 % (10.0-14.5); WHITE BLOOD COUNT 6.3 10^3/uL (4.3-11.0)
[2019-12-29] MEDS: ACETAMINOPHEN 325 MG TABLET PO PRN ×3 (06:04→18:12)
[2019-12-29] MEDS: fentaNYL INJECTION 100 MCG/2 ML AMP IV PRN (06:05)
[2019-12-29] MEDS: SUCRALFATE 1 GM (CARAFATE) TAB PO SCH ×4 (06:09→21:36)
[2019-12-29 06:13] VITALS: BP 184/74
[2019-12-29 06:41] LABS: ALBUMIN 3.2 GM/DL (3.2-4.5); BILIRUBIN,TOTAL 0.4 MG/DL (0.1-1.0); CALCIUM 8.6 MG/DL (8.5-10.1); CREATININE SERUM 1.73 MG/DL (0.60-1.30); POTASSIUM 4.3 MMOL/L (3.6-5.0); TOTAL PROTEIN 6.1 GM/DL (6.4-8.2)
--- NOTE | 2019-12-29 08:00 | NUR ---
O2 ON AT 2L. ADMITS TO SOB WITH EXERTION. STATES NO DIFFICULTY IN VOIDING SINCE MALIN CATHETER DC'D. DAUGHTER AT BEDSIDE.
[2019-12-29] MEDS: polyethylene glycoL POWDER 17 GM (MIRALAX) PACK PO SCH ×2 (09:00→21:38)
[2019-12-29] MEDS ORDERED: PANTOPRAZOLE 40 MG (PROTONIX) TAB PO SCH (09:00)
[2019-12-29] MEDS: SENNA W/DOCUSATE (SENOKOT S) TABLET PO SCH ×2 (09:00→21:39)
[2019-12-29] MEDS: DOCUSATE SODIUM 100 MG (COLACE) CAP PO SCH ×2 (09:00→21:38)
[2019-12-29] MEDS ORDERED: ASPIRIN 81 MG CHEW (CHILDREN'S ASA) PO SCH (09:00)
--- NOTE | 2019-12-29 09:08 | PM&R Post Admission Assessment ---
PM&R HP Date of Visit: Dec 29, 2019 Time of Visit: 09:15 History of Present Illness CC: Debility HPI: This is an 89yoWF clinic patient of mine who arrives to IRF after DC from ICU due to sepsis from UTI with bacteremia of E coli placed on IVF to resolve the ARF/CRI of 2.6 creatinine. She has had a significant decline in status due to recent daughter passing away 3 weeks ago and many falls at home and has required multiple ER visits for varying issues. PLOF is independent ambulation and ADL's but children will be staying with her 24/7 from here on out. Hospital course: Pt had an uneventful but significant hospital course placed in ICU for sepsis with acute renal failure and UTI. Pt received aggressive IV fluids, cardiology and pulmonology intensivists were both consulted along with Dr. Taylor for esophageal spasms. She was placed on Rocephin empirically, blood cultures returned E.coli so she will complete Rocephin and she will need PT and OT because she was falling at home suffering a left leg hematoma so she will require intensive therapy in order to return home and her children will provide 24/7 coverage and care taking responsibility at DC. Pt overall felt a lot better when she was DC to inpatient rehab. Past Qbuzdmx-Kdlbqk-Bmtscx Hx Past Med/Social Hx: Reviewed Nursing Past Med/Soc Hx, Reviewed and Corrections made Patient Social History Marrital Status: Employed/Student: retired Alcohol Use: Denies Use Smoking Status: Former Smoker Former Smoker, Quit: Mar 08, 1980 Type Used: Cigarettes 2nd Hand Smoke Exposure: No Recent Foreign Travel: No Contact w/other who traveled: No Recent Hopitalizations: No Recent Infectious Disease Expo: No Immunizations Up To Date Tetanus Booster (TDap): Unknown Pediatric: No Date of Pneumonia Vaccine: Apr 22, 2019 Date of Influenza Vaccine: Aug 22, 2019 Seasonal Allergies Seasonal Allergies: No Past Medical History Surgeries: Appendectomy, Bowel Surgery, Cardiac, Coronary Stent, Gallbladder, Joint Replacement, Orthopedic Respiratory: Asthma, COPD, Pneumonia, Sleep Apnea Currently Using CPAP: Yes (AT HS) Currently Using BIPAP: No Cardiac: Chronic Edema/Swelling, Coronary Artery Disease, High Cholesterol, Hypertension Neurological: Neuropathy Reproductive: No (HAD 9 CHILDREN) Sexually Transmitted Disease: No HIV/AIDS: No Female Reproductive Disorders: Denies Genitourinary: Renal Failure Gastrointestinal: Gastroesophageal Reflux, Hiatal Hernia, Ulcer Musculoskeletal: Degenerate Disk Disease, Arthritis, Chronic Back Pain HEENT: Cataract Loss of Vision: Denies Hearing Impairment: Hard of Hearing Skin/Integumentary: Eczema History of Blood Disorders: Yes (CHRONIC ANEMIA--HGB IN 8'S NORMALLY) Adverse Reaction to Blood Christensen: No Family History Abdominal aortic aneurysm 19 FATHER Aphasia G8 SISTER Arthritis 19 MOTHER Cardiovascular disease 19 MOTHER G8 BROTHER Completed stroke G8 SISTER Deafness or hearing loss 19 MOTHER Dementia 19 MOTHER Gastroenteritis 19 MOTHER Hypertension 19 MOTHER G8 SISTER Myocardial infarction G8 BROTHER Psychosocial problem G8 SISTER Respiratory disorder 19 MOTHER G8 BROTHER Thyroid disease G8 BROTHER No Family History of: AIDS Commerce's disease Alcoholism Alzheimer's disease Asthma Cancer of mouth Cataracts Colon cancer Congenital disease Congenital heart disease Coronary thrombosis Cystic fibrosis Diabetes mellitus Drug abuse Dysphasia Fibrocystic disease of breast Glaucoma Headache disorder Hypercholesterolemia Infertility Kidney disease Neoplasm Not obtainable due to adoption Osteoporosis Parkinson's disease Prostate cancer Seizure disorder Severe allergy Tuberculosis Visual disorder No Pertinent Family Hx Prior Level of Function Bed Mobility: 6 Transfers: 6 Gait: 6 (FWW) Stairs: 6 Indoor Mobility (Ambulation): Independent Prior Devices Use: Walker Self Care: Independent Functional Cognition: Independent Occupation: retired Drive Self: No Leisure Interests: cooking, TV, family Current Level of Fuctioning Roll Left to Right: 3 Sit to Lyin Lying to Sitting/Side of Bed: 3 Sit to Stand: 3 Chair/Act-kg-Nxbno Xfer: 3 Car Transfer: 88 Does the Patient Walk: Yes Mode of Locomotion: Walk Anticipated Mode of Locomotion: Walk Walk 10 feet: 3 Walk 50 ft with 2 Turns: 3 (50 ft x 2 with fww wtih min assist with cues for safety) Walk 150 ft: 88 Walking 10ft on uneven surface: 88 Gait Assistive Device: FWW Does the Pt Use a Wheelchair: No 1 Step (curb): 88 4 Steps: 88 12 Steps: 88 Picking up an Object: 88 Eatin Oral Hygiene: 6 (items in front of pt on table, completes denture hygiene with toothbrush) Shower/Bathe Self: 4 (SBA on EOB/ CGA in stance. Pt requires consistent cues for safety due to impulsivity.) Upper Body Dressin (min A bra donning. s/u shirt.) Lower Body Dressin (SBA/ CGA during hike over hips.) On/Off Footwear: 3 (min A to don over L toes, SBA R foot.) Toileting Hygiene: 4 (CGA in stance) PM&R Allergy/Meds/Data Review Allergies Coded Allergies: codeine (Verified Allergy, Mild, 12/25/19) Home Medications Scheduled Amlodipine Besylate (Amlodipine Besylate), 7.5 MG PO DAILY, (Reported) Aspirin (Aspirin EC), 81 MG PO DAILY, (Reported) Fluticasone/Umeclidin/Vilanter (Trelegy Ellipta 100-62.5-25), 1 PUFF INH DAILY, (Reported) Losartan Potassium (Losartan Potassium), 50 MG PO DAILY, (Reported) Methyl Salicylate/Menthol (Salonpas Patch), 1 PATCH TP HS, (Reported) Montelukast Sodium (Montelukast Sodium), 10 MG PO HS, (Reported) Pantoprazole Sodium (Pantoprazole Sodium), 40 MG PO DAILY, (Reported) Pravastatin Sodium (Pravastatin Sodium), 20 MG PO DAILY, (Reported) Scheduled PRN Albuterol Sulfate (Ventolin Hfa), 2 PUFF INH Q4H PRN for SHORTNESS OF BREATH, (Reported) Alprazolam (Alprazolam), 0.25 MG PO TID PRN for ANXIETY, (Reported) Fexofenadine HCl (Fexofenadine HCl), 180 MG PO DAILY PRN for ALLERGIES, (Reported) Hydrocodone/Acetaminophen (Hydrocodone-Acetamin 5-325 mg), 1 TAB PO BID PRN for PAIN-MODERATE (5-7), (Reported) Hydroxyzine HCl (Hydroxyzine HCl), 25 MG PO Q6H PRN for ITCHING, (Reported) Ondansetron (Ondansetron Odt), 4 MG PO Q4H PRN for NAUSEA/VOMITING-1ST LINE, (Reported) Ranitidine HCl (Acid Differential Repairer (RANITIDINE)), 150 MG PO BID PRN for ACID REFLUX, (Reported) Tramadol HCl (Tramadol HCl), 50 MG PO Q4H PRN for PAIN-MODERATE (5-7), (Reported) Discontinued Medications Alprazolam (Alprazolam), 0.5 MG PO TID PRN for ANXIETY, (Reported) Discontinued Reason: New Order Gabapentin (Gabapentin), 100 MG PO TID PRN for PAIN-MILD Discontinued Reason: No Longer Taking Lidocaine (Lidocaine 5% Patch), 1 EACH TP DAILY PRN Discontinued Reason: No Longer Taking Sucralfate (Sucralfate), 1 GM PO ACHS Discontinued Reason: No Longer Taking Current Medications Current Medications Reviewed Laboratory Data Laboratory Tests 12/29/19 05:45: White Blood Count 6.3, Red Blood Count 2.53L, Hemoglobin 7.9L, Hematocrit 23L, Mean Corpuscular Volume 90, Mean Corpuscular Hemoglobin 31, Mean Corpuscular Hemoglobin Concent 35, Red Cell Distribution Width 15.1H, Platelet Count 253, Mean Platelet Volume 10.8H, Neutrophils (%) (Auto) 63, Lymphocytes (%) (Auto) 23, Monocytes (%) (Auto) 11, Eosinophils (%) (Auto) 3, Basophils (%) (Auto) 1, Neutrophils # (Auto) 4.0, Lymphocytes # (Auto) 1.4, Monocytes # (Auto) 0.7, Eosinophils # (Auto) 0.2, Basophils # (Auto) 0.0, Sodium Level 139, Potassium Level 4.3, Chloride Level 113H, Carbon Dioxide Level 16L, Anion Gap 10, Blood Urea Nitrogen 23H, Creatinine 1.73H, Estimat Glomerular Filtration Rate 28, BUN/Creatinine Ratio 13, Glucose Level 86, Calcium Level 8.6, Corrected Calcium 9.2, Total Bilirubin 0.4, Aspartate Amino Transf (AST/SGOT) 17, Alanine Aminotransferase (ALT/SGPT) 12, Alkaline Phosphatase 121, Total Protein 6.1L, Albumin 3.2 Review of Systems Constitutional: see HPI, dizziness, malaise, weakness EENTM: no symptoms reported Respiratory: cough, dyspnea on exertion Cardiovascular: no symptoms reported Gastrointestinal: no symptoms reported Genitourinary: no symptoms reported Musculoskeletal: back pain, joint pain Skin: no symptoms reported Psychiatric/Neurological: No Symptoms Reported All Other Systems Reviewed Negative Unless Noted: Yes Physical Exam Physical Exam Vital Signs Vital Signs - First Documented 12/28/19 12:25 Temp 37.4 Pulse 85 Resp 20 B/P (MAP) 171/68 Pulse Ox 95 O2 Delivery Nasal Cannula O2 Flow Rate 2.00 Capillary Refill : Less Than 3 Seconds Height, Weight, BMI Height: 5'0" Weight: 160lbs. 0.0oz. [id number]; 35.05 BMI Method:Stated General Appearance: No Apparent Distress, WD/WN, Chronically ill, Other (declined) Eyes: Bilateral Eye Normal Inspection, Bilateral Eye PERRL HEENT: PERRL/EOMI, Normal ENT Inspection, Pharynx Normal Neck: Full Range of Motion, Normal Inspection, Non Tender, Supple, Carotid Bruit Respiratory: Chest Non Tender, Lungs Clear, No Accessory Muscle Use, No Respiratory Distress, Decreased Breath Sounds Cardiovascular: Regular Rate, Rhythm, No Edema, No Gallop, No JVD, No Murmur, Normal Peripheral Pulses Gastrointestinal: Normal Bowel Sounds, No Organomegaly, No Pulsatile Mass, Non Tender, Soft Back: Normal Inspection, No CVA Tenderness, No Vertebral Tenderness Extremity: Normal Capillary Refill, Normal Inspection, Normal Range of Motion, Non Tender, No Calf Tenderness, No Pedal Edema Neurologic/Psychiatric: Alert, Oriented x3, No Motor/Sensory Deficits, Normal Mood/Affect, margin trimmer II-XII Norm as Tested, Other (anxious) Skin: Normal Color, Warm/Dry Lymphatic: No Adenopathy PM&R Medical Assessment & Plan REHAB/MEDICAL ASSESSMENT AND PLAN: REHAB IMPAIRMENT GROUP: Debility ETIOLOGIC DIAGNOSIS: Debility The comorbidities that impact the patients function and/or functional outcome by: Advanced age, falls, anxiety, CAD, COPD, recent critical illness REHAB PLAN: The patient is being admitted to our comprehensive inpatient rehabilitation facility and can tolerate the intensity of service consisting of at least: 180 minutes of therapy a day, 5 out of 7 days a week Rehab treatment will consist of: PT OT ST will focus on regaining strength and returning to PLOF. The patient/family has a good understanding of our discharge process and will benefit from an interdisciplinary inpatient rehabilitation program. The patient has potential to make improvement and is in need of at least two of the follow ing multidisciplinary therapies including but not limited to physical, occupational, speech, and prosthetics and orthotics. Additionally the patient will need services from respiratory, nutritional services, wound care, psychology, etc. (Customize this to each patient). Given the patients complex condition and risk of further medical complications, rehabilitation services cannot be safely or effectively provided at a lower level of care such as a alf facility. BARRIERS TO DISCHARGE: Advanced age ESTIMATED LOS: 7 days DISPOSITION: Home with family RELEVANT CHANGES SINCE PREADMISSION SCREENING: I have compared the patients medical and functional status at the time of the preadmission screening and there are: no changes PROGNOSIS: Good REHABILITATION GOALS: 1. PT OT will fully evaluate ways to improve strengthening and prevent falls All the above goals were reviewed with the patient and he/she is in agreement. By signing this document, I acknowledge that I have personally performed a full physical examination on this patient within 24 hours of admission to this inpatient rehabilitation facility and have determined the patient to be able to tolerate the above course of treatment at an intensive level for a reasonable period of time. I will be completing a detailed individualized Plan of Care for this patient by day #4 of the patients stay based upon the Preadmission Screen, the Post-Admission Evaluation, and the therapy evaluations. Admission Dx/Comorbidities: (1) Debility ICD Codes: R53.81 - Other malaise (2) Chronic renal insufficiency Status: Chronic ICD Codes: N18.9 - Chronic kidney disease, unspecified (3) Gastritis Status: Acute ICD Codes: K29.70 - Gastritis, unspecified, without bleeding (4) Situational anxiety Status: Acute ICD Codes: F41.8 - Other specified anxiety disorders (5) Urinary tract infection Status: Acute ICD Codes: N39.0 - Urinary tract infection, site not specified (6) Chronic anemia Status: Chronic ICD Codes: D64.9 - Anemia, unspecified (7) COPD (chronic obstructive pulmonary disease) Status: Chronic ICD Codes: J44.9 - Chronic obstructive pulmonary disease, unspecified (8) Gout Status: Chronic ICD Codes: M10.9 - Gout, unspecified (9) CAD (coronary artery disease) ICD Codes: I25.10 - Atherosclerotic heart disease of [place] coronary artery without angina pectoris (10) Dysphagia ICD Codes: R13.10 - Dysphagia, unspecified (11) Hyperlipidemia Status: Chronic ICD Codes: E78.5 - Hyperlipidemia, unspecified (12) Neuropathy Status: Acute ICD Codes: G62.9 - Polyneuropathy, unspecified (13) Radiculopathy ICD Codes: M54.10 - Radiculopathy, site unspecified (14) History of coronary artery stent placement Status: Chronic ICD Codes: Z95.5 - Presence of coronary angioplasty implant and graft TAHIR MARTINEZ DO Dec 29, 2019 09:08
--- NOTE | 2019-12-29 09:53 | Cardiology Progress Note ---
Subjective Date Seen by Provider: Dec 29, 2019 Time Seen by Provider: 09:50 Subjective/Events-last exam Patient was seen during physical therapy, feeling better, reporting improvement Review of Systems General: Chills; No Night Sweats, No Fatigue, No Malaise, No Appetite, No Other HEENT: No Head Aches, No Visual Changes, No Eye Pain, No Ear Pain, No Dysphasia, No Sinus Congestion, No Post Nasal Drip, No Sore Throat, No Other Pulmonary: Dyspnea; No Cough, No Pleuritic Chest Pain, No Other Cardiovascular: No: Chest Pain, Palpitations, Orthopnea, Paroxysmal Noc. Dyspnea, Edema, Lt Headedness, Other Objective-Cardiology Exam Last Set of Vital Signs Vital Signs 12/29/19 12/29/19 12/29/19 06:13 06:19 06:37 Temp 36.7 Pulse 66 Resp 22 B/P (MAP) 184/74 (110) Pulse Ox 94 O2 Delivery Nasal Cannula O2 Flow Rate 2.00 Capillary Refill : Less Than 3 Seconds I&O Intake and Output 12/29/19 00:00 Intake Total 400 ml Output Total 1775 ml Balance -1375 ml Intake Oral 400 ml Output Urine Total 1775 ml # Bowel Movements 2 Daily Weight Change No General: Alert, Oriented X3, Cooperative HEENT: Atraumatic, PERRLA Neck: Supple, No JVD, No Thyromegaly Lungs: Clear to Auscultation, Normal Air Movement Heart: Regular Rate, Normal S1, Normal S2, No Murmurs Abdomen: Normal Bowel Sounds, Soft, No Tenderness, No Hepatosplenomegaly, No Masses Extremities: No Clubbing, No Cyanosis, No Edema, Normal Pulses, No Tenderness/Swelling Skin: No Rashes, No Breakdown, No Significant Lesion Neuro: Normal Gait, Normal Speech, Strength at 5/5 X4 Ext, Normal Tone, Sens ation Intact Psych/Mental Status: Mental Status NL, Mood NL Results Lab Laboratory Tests 12/29/19 05:45 A/P-Cardiology Admission Diagnosis Sepsis Anemia Coronary artery disease Hypertension Assessment/Plan Sepsis with UTI, improving, receiving antibiotic and managed by primary care team. Starting on physical therapy. Anemia, cold that dobutamine, received blood transfusion with warm blood, managed by Dr. Bowman Chest pain, generalized body ache, history of kxga-ie-xobnttrg coronary artery disease, no further episodes of chest pain were reported. Continue to monitor Dyspnea, history of bronchial asthma, history of C Pap use, currently on oxygen. Coronary artery disease, history of stent to the LAD, cardiac catheterization March 2013 showing patent stents in the proximal LAD with mild in-stent restenosis,mild to moderate disease in the mid LAD and mid circumflex artery, kuh[place] d history of abnormal stress test in the past and has been refusing cardiac catheterization. History of gastroesophageal reflux disease, esophagitis, mild dysphagia, esophageal spasm, managed by primary care team Hypertension, monitor blood pressure History of hyperlipidemia, monitor lipids Moderate carotid stenosis tortuous carotids by ultrasound, continue to monitor Acute on chronic renal failure, improving slowly, continue on IV fluid and monitor closely. History of chronic anemia, H&H are worse today, receiving one unit of packed RBCs, continue to monitor Clinical Quality Measures DVT/VTE Risk/Contraindication: Risk Factor Score Per Nursin RFS Level Per Nursing on Admit: 4+=Very High ELO HOLBROOK MD Dec 29, 2019 09:53
[2019-12-29 10:07] VITALS: BP 144/69
--- NOTE | 2019-12-29 10:07 | Physical Therapy Daily Note ---
PT Daily Note-Current Subjective Pt. agrees to Rx, very pleasant. Pain Location: No Pain Reported Mental Status Patient Orientation: Normal For Age Attachments: Oxygen (2L) Transfers SCALE: Activities may be completed with or without assistive devices. 7-Zghgejizdi-cwrvfrl completes the activity by him/herself with no assistance from a helper. 5-Set-up or Clean-up Assistance-helper sets up or cleans up; patient completes activity. [place] assists only prior to or following the activity. 4-Supervision or Touching Assistance-helper provides verbal cues and/or touching/steadying and/or contact guard assistance as patient completes activity. Assistance may be provided throughout the activity or intermittently. 3-Partial/Moderate Assistance-helper does LESS THAN HALF the effort. [place] lifts, holds or supports trunk or limbs, but provides less than half the effort. 2-Substantial/Maximal Assistance-helper does MORE THAN HALF the effort. [place] lifts or holds trunk or limbs and provides more than half the effort. 4-Vxyprjaxm-oxvyak does ALL the effort. Patient does none of the effort to complete the activity. Or, the assistance of 2 or more helpers is required for the patient to complete the activity. If activity was not attempted, code reason: 7-Patient Refused. 9-Not Applicable-not attempted and the patient did not perform the activity before the current illness, exacerbation or injury. 10-Not Attempted due to Environmental Limitations-(lack of equipment, weather restraints, etc.). 88-Not Attempted due to Medical Conditions or Safety Concerns. Roll Left & Right (QC): 6 Sit to Lying (QC): 6 Lying to Sitting/Side of Bed(Q: 6 Sit to Stand (QC): 6 Chair/Qjk-cd-Drgde Xfer(QC): 6 Gait Training Does the Patient Walk?: Yes Walk 10 feet (QC): 5 Walk 50 ft with 2 Turns(QC): 5 Gait Persons Needed: 1 Gait Assistive Device: FWW gait [id number] FWW CGA to SBA and assist for O2 Exercises Seated Therapy Exercises: Ankle pumps, Sit to stand, Long arc quads, Hip flexio n, Hip abd/add Seated Reps: 10 (x2) pt. on Nustep able to stop and rest with dyspnea symptoms if needed NuStep Minutes: 10 NuStep Workload: 2 Assessment Current Status: Good Progress PT Short Term Goals Short Term Goals Time Frame: Jan 04, 2020 Roll Left & Right: 4 Sit to lyin Lying to sitting on side of be: 4 Sit to stand: 4 Walk 150 feet: 4 PT Chcf Goals Chcf Goals PT Chcf Goals Time Frame: Jan 18, 2020 Roll Left & Right (QC): 6 Sit to Lying (QC): 6 Lying-Sitting on Side/Bed(QC): 6 Sit to Stand (QC): 6 Chair/Egg-fj-Klpsj Xfer(QC): 6 Toilet Transfer (QC): 6 Car Transfer (QC): 6 Does the Patient Walk: Yes Walk 10 feet (QC): 6 Walk 50ft with 2 Turns (QC): 6 Walk 150 ft (QC): 6 Walking 10ft on Uneven Surface: 5 1 Step (curb) (QC): 5 4 Steps (QC): 5 12 Steps (QC): 9 Picking up an Object (QC): 4 Does the Pt use WC or Scooter?: No PT Plan Treatment/Plan Treatment Plan: Continue Plan of Care Treatment Plan: Bed Mobility, Education, Functional Activity Monica, Functional Strength, Group Therapy, Gait, Safety, Therapeutic Exercise, Transfers Treatment Duration: Jan 18, 2020 Frequency: At least 5 of 7 days/Wk (IRF) Estimated Hrs Per Day: 1.5 hours per day Patient and/or Family Agrees t: Yes Safety Risks/Education Patient Education: Gait Training, Transfer Techniques, Correct Positioning, Disease Process, Safety Issues Teaching Recipient: Patient Teaching Methods: Demonstration, Discussion Response to Teaching: Verbalize Understanding, Return Demonstration, Reinforce ment Needed practiced and educated about gait with extended O2 safety Time/GCodes Time In: 900 Time Out: 1000 Total Billed Treatment Time: 60 Total Billed Treatment 1,GT20m,EX25m,FA15 MARIE LEACH LAW OFFICE ASSISTANT Dec 29, 2019 10:07
--- NOTE | 2019-12-29 10:14 | Occupational Ther Daily Note ---
OT Current Status-Daily Note Subjective Pt in bed, agrees to treatment. Pt has no reports of pain. Mental Status/Objective Attachments: Oxygen ADL-Treatment Pt agreeable to shower this morning. Supine to sit without assist. Gait to restroom with FWW. Transfer to toilet using grab bars for safety. Pt able to complete toileting hygiene and clothing management. Transfer to walk in shower with cues for safety. Uses grab bar for balance. Pt doffed clothing without assist. Upper body bathing completed with set up. Pt able to wash bilateral LE, buttocks and awa area with SBA for balance. When donning bra pt required min assist to hook in the back. Don pullover shirt with set up. Pt donned underwear and pants with set up. Stood with good balance during pant hike. Pt donned bilateral socks with set up. Combed hair with set up. Pt fatigues with activity and requires occasional rest breaks throughout session. Pt transferred to chair, sitting with needs met and chair alarm in place, daughter present after session. Therapy Code Descriptions/Definitions Functional [place] Measure: 0=Not Assessed/NA 4=Minimal Assistance 1=Total Assistance 5=Supervision or Setup 2=Maximal Assistance 6=Modified [place] 3=Moderate Assistance 7=Complete IndependenceSCALE: Activities may be completed with or without assistive devices. 5-Ohnxjphlsl-novyvsv completes the activity by him/herself with no assistance from a helper. 5-Set-up or Clean-up Assistance-helper sets up or cleans up; patient completes activity. Steward assists only prior to or following the activity. 4-Supervision or Touching Assistance-helper provides verbal cues and/or touching/steadying and/or contact guard assistance as patient completes activity. Assistance may be provided throughout the activity or intermittently. 3-Partial/Moderate Assistance-helper does LESS THAN HALF the effort. Steward lifts, holds or supports trunk or limbs, but provides less than half the effort. 2-Substantial/Maximal Assistance-helper does MORE THAN HALF the effort. Steward lifts or holds trunk or limbs and provides more than half the effort. 8-Bmihmtfws-tmohis does ALL the effort. Patient does none of the effort to complete the activity. Or, the assistance of 2 or more helpers is required for the patient to complete the activity. If activity was not attempted, code reason: 7-Patient Refused. 9-Not Applicable-not attempted and the patient did not perform the activity before the current illness, exacerbation or injury. 10-Not Attempted due to Environmental Limitations-(lack of equipment, weather restraints, etc.). 88-Not Attempted due to Medical Conditions or Safety Concerns. Oral Hygiene (QC): 7 (Pt states she has already completed oral care this morning) Shower/Bathe Self (QC): 4 (SBA) Upper Body Dressing (QC): 3 (min assist for bra, set up for shirt) Lower Body Dressing (QC): 4 (SBA) On/Off Footwear: 5 Toileting Hygiene (QC): 5 Toilet Transfer (QC): 5 Education OT Patient Education: Safety issues Teaching Recipient: Patient Teaching Methods: Discussion Response to Teaching: Verbalize Understanding, Reinforcement Needed OT Short Term Goals Short Term Goals Upper body dressin Putting on/taking off footwear: 6 OT Head Of Business Development Goals Head Of Business Development Goals Time Frame: Jan 11, 2020 Eating (QC): 6 Oral Hygiene (QC): 6 Toileting Hygiene (QC): 6 Shower/Bathe Self (QC): 6 Upper Body Dressing (QC): 6 Lower Body Dressing (QC): 6 On/Off Footwear (QC): 6 Additional Goals: 1-Demonstrate ADL Tasks, 2-Verbalize Understanding, 3- ImproveStrength/Monica 1=Demonstrate adherence to instructed precautions during ADL tasks. 2=Patient will verbalize/demonstrate understanding of assistive devices/modifications for ADL. 3=Patient will improve strength/tolerance for activity to enable patient to perform ADL's. OT Education/Plan Discharge Recommendations Plan/Recommendations: Continue POC Treatment Plan/Plan of Care Patient would benefit from OT for education, treatment and training to promote independence in ADL's, mobility, safety and/or upper extremity function for ADL's. Plan of Care: ADL Retraining, Caregiver Training, Functional Mobility Treatment Duration: Jan 11, 2020 Frequency: At least 5 of 7 days/Wk (IRF) Estimated Hrs Per Day: 1.5 hours per day Agreement: Yes Rehab Potential: Good Time/GCodes Start Time: 08:00 Stop Time: 09:00 Total Time Billed (hr/min): 60 Billed Treatment Time 1 visit, ADLx4(60minutes) JAYDA PASCUAL OT Dec 29, 2019 10:14
[2019-12-29] MEDS ORDERED: ONDANSETRON 4 MG (ZOFRAN) ORAL DISSOLVE TAB PO PRN (10:30)
[2019-12-29] MEDS ORDERED: hydrOXYzine (VISTARIL/ATARAX) 25 MG capsule/tablet PO PRN (10:45)
[2019-12-29] MEDS ORDERED: FAMOTIDINE 20 MG (PEPCID) TABLET PO PRN (10:49)
--- NOTE | 2019-12-29 10:50 | Progress Note ---
EV COYNE,MED STUDENT 12/29/19 1050: Progress Note CC: Sepsis with UTI Today Mrs. Moreira states she is feeling better. She did not have as much confusion when she awoke this morning. She admits to 1 "episode" of shaking since being in ARU. Her breathing has improved since the lasix was started yesterday early afternoon. The miranda catheter was discontinued and she is voiding well. She spent time with occupational therapy and physical therapy this morning and is benefiting from the intense rehabilitation. She does note an increase in situational stress as her daughter passed recently. Since the pas sing of her daughter a family member has been staying with her overnight. Hospital Course: Mrs. Moreira is an 89 year old female that came to the emergency department on Wednesday12/25/19 with a complaint of fevers and chills that began on Wednesday12/24/19. After a workup in the emergency department Mrs. Moreira was diagnosed with sepsis and a UTI. She was admitted to the ICU on 12/25/19 and transferred to inpatient rehab on 12/28/19. She as well as her family describe "episodes" of shaking that begins in her feet and travels upward resulting in full body shaking and rigors. These have decreased in frewency since arrival. She has been getting zofran, ativan, and pain medication at initiation of the episodes which seem to help the intensity. She also admits of dysphagia with both solids and liquids. She states this is a chronic problem for her and has not worsened or changed recently. She takes pepcid regularly but has not been taking the prescribed Carafate. She states she manages the dysphagia by taking small bites which seems to decrease the symptoms. Patient is of advanced age and multiple medical conditions including HTN, CAD, severe gastritis, chronic anemia, COPD, renal failure, hiatal hernia. Allergies: codeine Surgical history: cholecystectomy, appendectomy, last EGD done 07/2019, coronary stents, joint replacement Alcohol: denies use Tobacco: former smoker, quit 1979 Physical Exam: General: alert and oriented x3, well nourished/well developed, chronically ill, mild distress Heart: regular rate and rhythm, no murmurs, no pedal edema Lungs: diminished lung sounds, lungs clear to auscultation bilaterally, no respiratory distress, no accessory muscle use Assessment and Plan: Sepsis/Bacteremia UTI Anemia Severe Gastris Continue ceftriaxone, IVF, pepcid and carafate. She has been on ceftriaxone IV for bacteremia for 5 days. Will continue until patient has been treated for 7 days. Continue home medications including pepcid and carafate Monitor CBC as indicated by Dr. Peguero for chronic anemia PT/OT for increase in strength,stability with history of fall, and ADL assistance HALLE MARTINEZ DO 12/29/19 4316: Supervisory-Addendum Brief Verification & Attestation Participated in pt care: history, MDM, physical Personally performed: exam, history, MDM, supervision of care Care discussed with: Medical Student Procedures: n/a Results interpretation: Verified all documentation Verification and Attestation of Medical Student E/M Service A medical student performed and documented this service in my presence. I reviewed and verified all information documented by the medical student and made modifications to such information, when appropriate. I personally performed the physical exam and medical decision making. Halle Martinez, Dec 29, 2019,17:09 EV COYNEMED STUDENT Dec 29, 2019 10:50 HALLE MRATINEZ DO Dec 29, 2019 17:09
[2019-12-29] MEDS ORDERED: HYDROcodone/APAP 5 MG/325 MG (LORTAB) TAB PO PRN (11:00)
[2019-12-29] MEDS ORDERED: CATHETER FLUSH 10 ML SYR IV PRN (11:15)
--- NOTE | 2019-12-29 11:18 | NUR ---
RT FINALLY MADE IT TO PATIENTS ROOM TO GIVE HER THE 1000 SVN BREATHING TX AND THERAPY WAS WITH HER AT THIS TIME
--- NOTE | 2019-12-29 11:25 | NUR ---
Pt is Sikh. Dry Mop Maker provided prayer and Communion.
--- NOTE | 2019-12-29 11:43 | ST Cognitive Linguistic Eval ---
Speech Evaluation-General Medical Diagnosis debility Onset Date: Dec 28, 2019 Therapy Diagnosis Therapy Diagnosis: Cognitive-communication Referral Referring Physician: Dr. Dejesus Reason for Referral: Evaluation/Treatment Medical History Pertinent Medical History: CAD, COPD, GERD, HTN Reviewed History: Yes Social History Current Living Status: Alone (family support frequentl; last few weeks, 24 hour care) Speech PLF-Current Status Prior Level of Function Patient reported that she lives independently at home and handles all finances and medication. Subjective Patient was alert, pleasant, and cooperative for all evaluation tasks. Patients daughter was present for all evaluation tasks. Patient sat upright in her chair for the duration of the evaluation. Language Eval: Auditory Comprehends Simple Yes/No Ques: Functional Indent/Objects [place]: Functional Ident/Pics in [place]: Functional Follows 1-Step Commands: Functional Follows Complex Directions: Functional Follows General Conversations: Functional Language Eval: Verbal Language Completes Spontaneous Greeting: Functional Produces Auto, Serial Info: Functional Imitates Simple Words/Phrases: Functional Word Finding: Functional Requests Basic Needs: Functional States Basic Personal Info: Functional Expresses Complex Ideas: Functional Objective Cognitive Domain Attention: WNL Memory: WNL Problem Solving: Functional Executive Functions: WNL Visuospatial Skills: WNL Composite Severity Rating: WNL Clock Drawing Severity Rating: WNL Objective Formal/Standardized Tests [facility] Mental Status (UMS) Examination was administered. Results Patient was administered the SLUMS and scored 27/30 which falls within normal limits of cognitive function. Oral Motor/Speech Production Within functional limits. Impression Patient was admitted to the ARU s/p debility. Patient was administered the SLUMS and scored 27/30 which falls within normal limits of cognitive function. Patient does not require skilled ST therapy at this time. Speech Patient Assess Expression of Ideas/Wants: Expression (4) Understanding Verbal Content: Understands (4) Brief Interview-Mental Status: Yes Repetition of Three Words: Three (3) Temporal Orientation: Year: Correct (3) Temporal Orientation: Month: Accurate within 5 days(2) Temporal Orientation: Day: Correct (1) Recall : Wear to say "Sock": Yes, no cue required (2) Recall : Color: Yes, no cue required (2) Recall : Bed: Yes, no cue required (2) Memory/Recall Ability: Current season, That he or she is in a hsp/hsp unit Speech-Plan Patient/Family Goals Patient/Family Goals: Patient reports that she wishes to return home to previous level of independence and mobility. Treatment Plan Speech Therapy Treatment Plan: Discontinue ST Treatment Duration: Dec 29, 2019 Frequency: 1 time per week Estimated Hrs Per Day: .25 hour per day Rehab Potential: Good Barriers to Learning: None identified. Pt/Family Agrees to Plan: Yes Safety Risks/Education Teaching Recipient: Patient Teaching Methods: Demonstration Response to Teaching: Verbalize Understanding Education Topics Provided: Education on evaluation tasks and what each question assesses. Time Speech Therapy Time In: 11:00 Speech Therapy Time Out: 11:15 Total Billed Time: 15 Billed Treatment Time 1, SPSNDCOMP No DIMPLE RUSSELL Dec 29, 2019 11:43
--- NOTE | 2019-12-29 11:44 | Pulmonary Progress Note ---
Subjective Date Seen by a Provider: Dec 29, 2019 Time Seen by a Provider: 08:40 Subjective/Events-last exam pt dressed and sitting up in chair with gait belt on and oxygen at 2L. She reports shortness of breath improving. Does have "episodes" of chilling but not as severe as when she was admitted. She is wearing her cpap at night. Review of Systems General: Chills, Fatigue Pulmonary: Dyspnea, Cough Sepsis Event Evaluation Height, Weight, BMI Height: 5'0" Weight: 160lbs. 0.0oz. 72.923729rm; 35.05 BMI Method:Stated Exam Exam Vital Signs Date Time Temp Pulse Resp B/P (MAP) Pulse Ox O2 Delivery O2 Flow Rate FiO2 12/29/19 10:07 73 144/69 (94) 12/29/19 09:00 Nasal Cannula 2.00 12/29/19 06:37 36.7 12/29/19 06:19 94 Nasal Cannula 2.00 12/29/19 06:13 37.8 66 22 184/74 (110) 92 Nasal Cannula 2.00 12/29/19 06:04 37.6 12/29/19 03:52 92 NIV Bilevel 2.00 12/28/19 23:35 0 NIV CPAP 2.00 12/28/19 20:19 93 Nasal Cannula 2.00 12/28/19 20:13 93 Nasal Cannula 2.00 12/28/19 17:35 Nasal Cannula 2.00 12/28/19 17:16 37.7 81 20 169/77 (107) 99 Nasal Cannula 2.00 12/28/19 14:52 95 Nasal Cannula 2.00 12/28/19 12:25 37.4 85 20 171/68 95 Nasal Cannula 2.00 I & O 12/29/19 07:00 Intake Total 700 ml Output Total 2875 ml Balance -2175 ml Height & Weight Height: 5'0" Weight: 160lbs. 0.0oz. 72.578322gh; 35.05 BMI Method:Stated General Appearance: No Apparent Distress, WD/WN, Chronically ill HEENT: PERRL/EOMI, Pharynx Normal, Moist Mucous Membranes Neck: Full Range of Motion, Normal Inspection, Non Tender, Supple Respiratory: Chest Non Tender, Lungs Clear, No Accessory Muscle Use, No Respiratory Distress, Decreased Breath Sounds Cardiovascular: Regular Rate, Rhythm, No Edema, Normal Peripheral Pulses Capillary Refill: Less Than 3 Seconds Extremity: Normal Capillary Refill, Normal Inspection, Normal Range of Motion, Non Tender, No Calf Tenderness, No Pedal Edema Neurologic/Psychiatric: Alert, Oriented x3, No Motor/Sensory Deficits, Normal Mood/Affect, science center display builder II-XII Norm as Tested, Other (anxious) Skin: Normal Color, Warm/Dry Results Lab Laboratory Tests 12/29/19 05:45 Assessment/Plan Assessment/Plan Sepsis with UTI -Influenza is negative Acute renal failure with hyperkalemia - improving Metabolic acidosis -Improving anemia -- -Monitor -Hold anticoagulation -had 1 unit transfused on 12/27 S/p recent fall -Fall precautions OMID -has home cpap copd/asthma -receiving tx SANAZ AWAD APRN Dec 29, 2019 11:44
--- NOTE | 2019-12-29 12:30 | NUR ---
CALLED TO ROOM BY PATIENT. "HAVING ANOTHER EPISODE". PATIENT SHAKING. STATES IT ALWAYS STARTS WITH HER FEET FEELING COLD AND THEN SHAKING STARTS. TEMPERATURE 99.6. MEDICATED WITH TYLENOL PER PATIENT REQUEST AND WITH XANAX. SALINE LOCK OCCLUDED AND WILL RESTART. EPISODE LASTED 10 MINUTES. RECOVERED BEFORE MEDICATIONS HAD A CHANCE TO WORK.
[2019-12-29] MEDS: ALPRAZolam 0.25 MG (XANAX) TAB PO PRN ×2 (12:51→18:08)
[2019-12-29] MEDS: CATHETER FLUSH 10 ML SYR IV SCH ×2 (14:29→21:10)
[2019-12-29] MEDS: ENOXAPARIN 30 MG/0.3 ML (LOVENOX) SYR SC SCH (14:30)
--- NOTE | 2019-12-29 14:47 | NUR ---
"RD ASSESSMENT PMHx: COPD; CAD; hypercholesterolemia; GERD; hiatal hernia PT INTERACTION: Pt was awake and pleasant during nutrition assessment. Pt states current appetite is pretty good. Note PO intake of 25% x1meal, per chart review. Pt states no recent issues with n/v/c at this time. Pt states having some episodes of diarrhea. Note last BM was 2/7 and pt currently on bowel regimen of colace BID; senna BID; and miralax BID, per chart review. ABNORMAL NUTRITION-RELATED LAB VALUES LOW: Pro 6.1 HIGH: Cl 113; BUN 23; cr 1.73 Est. kcal needs: 4312-5380 kcal | 20-25 kcal/kg Est. Pro needs: 65-81 g Pro | 0.8-1.0 g Pro/kg PES STATEMENT: Inadequate oral intake (NI-2.1) related to loss of appetite | diarrhea as evidenced by pt interview | PO intake of 25% x1meal INTERVENTION: Continue with current diet order of Regular diet. Add Ensure Clear (vary) to meals TID, for increased kcal intake and pt tolerance. Provides 250 kcal and 8 g Pro per serving. Will continue to follow and reassess as pt needs and status change. MONITOR/EVALUATE: PO Intake; Plan of Care; Hydration Status; Weight Status; Lab Values Alaina Baca, MS, RD, LD"
--- NOTE | 2019-12-29 14:48 | Therapy Group Daily Note ---
Therapy Daily Group Note Patient Education Topic Other List Below (ARU orientation, memory strategies) Exercises LE Seated Exercise, UE Exercise Session Ratio (pt:therapist): 3:1 Goal of Session: Education on ARU Expectations, Memory Strategies Goal Met for this Session: Yes Pt Benefit of Group: Improved Cognition, Socialization Other/Notes Pt. participated in group PT OT session this date. Pt. ambulated to and from group with assist . Pts. were social and shared name, home town and "what they would tell the world in 2 mins or less". Pts shared U&L extremity exercises they recall and demonstrated and lead those in group as well as others lead by OT and PT. Pts were educated on memory strategies as well as participating in memory game utilizing imaging. Pts were also oriented (reoriented) on ARU practices and expectations. Pt. to room after group, call gallardo at hand, needs met Start Time: 13:00 Stop Time: 14:15 Total Billed Treatment Time: 75 Total Billed Treatment 1,GRP MARIE LEACH SEED SPECIALIST Dec 29, 2019 14:48
--- NOTE | 2019-12-29 15:43 | NUR ---
CM/SS ADMISSION Patient was admitted to ARU 12/28/19 for debility, transferred from [facility] Acute initial admission for sepsis with UTI, increased falls, CAD and other comorbidities. Prior to hospitalization patient resided alone; however, her family had been staying with her / for approximately two weeks due to her decline. Her family also assists in other ways as needed, like grocery shopping. She has meal delivery, agency not clarified. She was IADL prior to onset of decline, including driving. DME: Has FWW, cane, BSC, tall toilet, shower chair, bath grab bars. Will monitor for therapy recommendations for other beneficial DME. PCP: Dr. Halle Dejesus DO [place]. INSURED: Medicare, applying for financial assistance with [facility]. PHARMACY: [facility] [phone] Patient displayed understanding of the Weekly Team Conference review and summary. Her goal is to return home as before.
[2019-12-29] MEDS ORDERED: PATIENT MAY USE OWN MED,SINGLE MED PO SCH ×2 (17:00)
[2019-12-29 17:30] VITALS: BP 150/71
--- NOTE | 2019-12-29 18:00 | NUR ---
ANOTHER EPISODE OF SHAKING. TEMP. 99.6. MEDICATED WITH TYLENOL AND XANAX. EPISODE LASTED 15 MINUTES AND PATIENT COMPLAINS OF ACUTE BACK PAIN WHILE SHAKING IS GOING ON. FAMILY REQUESTS FENTANYL BE GIVEN FOR PAIN. SOON EPISODE IS OVER, PAIN IS GONE.
--- NOTE | 2019-12-29 19:13 | NUR ---
bedside report received from MARICEL CORDON, assume care of pt
[2019-12-29] MEDS ORDERED: MENTHOL TP SCH (21:00)
[2019-12-29] MEDS ORDERED: METHYL SALICYLATE TP SCH (21:00)
--- NOTE | 2019-12-29 21:02 | NUR ---
when trying to give saline flush prior to antibiotic, site was swollen, infiltrated, removed, new site to rt hand #[id number] G. flushed & antibiotic given
[2019-12-29] MEDS: cefTRIAXone FOR IV USE 1,000 MG in WATER (STERILE) FOR INJECTION 10 ML IV SCH (21:12)
[2019-12-29] MEDS: MONTELUKAST 10 MG (SINGULAIR) TAB PO SCH (21:36)
[2019-12-29] MEDS: SIMvastatin 10 MG (ZOCOR) TAB PO SCH (21:36)
--- NOTE | 2019-12-29 21:36 | NUR ---
pt refused Colace, miralax & Senokot, states had stool today, family at bedside
[2019-12-29 22:29] VITALS: BP 150/71
[2019-12-30] MEDS: ACETAMINOPHEN 325 MG TABLET PO PRN ×2 (00:29→12:36)
[2019-12-30] MEDS: MELATONIN 3 MG TABLET PO PRN (00:29)
--- NOTE | 2019-12-30 00:29 | NUR ---
c/o ivelisse knees hurting, pain level 05/31 only wanted Tylenol 650mg also given melatonin 3mg for sleep
--- NOTE | 2019-12-30 01:15 | NUR ---
states pain level 2/10, but still awake
--- NOTE | 2019-12-30 01:54 | NUR ---
called into room daughter states she is having one of her episodes, family requesting fentanyl because these shaking episodes cause her back to hurt
--- NOTE | 2019-12-30 01:58 | NUR ---
fentanyl 50mcg iv given for back pain level 8/10 on numeric scale
[2019-12-30] MEDS: fentaNYL INJECTION 100 MCG/2 ML AMP IV PRN ×3 (02:00→11:48)
--- NOTE | 2019-12-30 02:04 | NUR ---
shaking episode lasting 10 min, family requesting temp check last taken at 0030 was 36.8 now 37.2 pt resting quietly in bed, daughter at bedside
[2019-12-30] MEDS: RT-ALBUTEROL SULF 2.5 MG/3 ML PRE-MIX VIAL INH SCH ×3 (03:38→21:50)
--- NOTE | 2019-12-30 04:38 | NUR ---
called to room by daughter states she is having one of those episodes, visible shaking noted but not as bad as before.
[2019-12-30] MEDS: CATHETER FLUSH 10 ML SYR IV SCH ×3 (04:42→21:31)
--- NOTE | 2019-12-30 04:42 | NUR ---
daughter requests fentanyl 50mcg as pt will experience back pain after episode over, fentanyl 50mcg iv given, pain level 5/10 on numeric scale
--- NOTE | 2019-12-30 04:45 | NUR ---
episode over, pt resting quietly in bed, daughter at bedside
--- NOTE | 2019-12-30 05:14 | NUR ---
resting quietly in bed, pain level 0/10 on flacc scale
[2019-12-30 05:15] VITALS: BP 158/69
[2019-12-30] MEDS: SUCRALFATE 1 GM (CARAFATE) TAB PO SCH ×4 (06:32→20:34)
[2019-12-30 08:00] VITALS: BP 148/72
[2019-12-30] MEDS: DOCUSATE SODIUM 100 MG (COLACE) CAP PO SCH ×2 (08:48→20:34)
[2019-12-30] MEDS: amLODIPine 5 MG (NORVASC) TAB PO SCH (08:48)
[2019-12-30] MEDS: PANTOPRAZOLE 40 MG (PROTONIX) TAB PO SCH (08:48)
[2019-12-30] MEDS: amLODIPine 2.5MG (NORVASC) TAB PO SCH (08:48)
[2019-12-30] MEDS: LORATADINE (CLARITIN) 10 MG TAB PO SCH (08:48)
[2019-12-30] MEDS: LOSARTAN 50 MG (COZAAR) TAB PO SCH (08:48)
[2019-12-30] MEDS: ASPIRIN E.C. 81 MG (ECOTRIN) TAB PO SCH (08:48)
[2019-12-30] MEDS: polyethylene glycoL POWDER 17 GM (MIRALAX) PACK PO SCH ×2 (08:50→21:00)
[2019-12-30] MEDS: TRELEGY ELLIPTA IH SCH (08:50)
[2019-12-30] MEDS: SENNA W/DOCUSATE (SENOKOT S) TABLET PO SCH ×2 (08:51→21:00)
[2019-12-30] MEDS ORDERED: LIDOCAINE TP PRN (09:00)
[2019-12-30] MEDS ORDERED: MENTHOL 1% TP PRN (09:00)
--- NOTE | 2019-12-30 11:25 | Physical Therapy Daily Note ---
PT Daily Note-Current Subjective Pt sitting in recliner upon arrival. Pt agrees to PT. Pt's daughters are present. Pain Location: No Pain Reported Mental Status Patient Orientation: Person, Place, Situation Attachments: Oxygen (1.5 L) Transfers SCALE: Activities may be completed with or without assistive devices. 8-Zlptvwuuey-ioyykts completes the activity by him/herself with no assistance from a helper. 5-Set-up or Clean-up Assistance-helper sets up or cleans up; patient completes activity. [place] assists only prior to or following the activity. 4-Supervision or Touching Assistance-helper provides verbal cues and/or touching/steadying and/or contact guard assistance as patient completes activity. Assistance may be provided throughout the activity or intermittently. 3-Partial/Moderate Assistance-helper does LESS THAN HALF the effort. [place] lifts, holds or supports trunk or limbs, but provides less than half the effort. 2-Substantial/Maximal Assistance-helper does MORE THAN HALF the effort. [place] lifts or holds trunk or limbs and provides more than half the effort. 6-Zhegjwzfo-bddflu does ALL the effort. Patient does none of the effort to complete the activity. Or, the assistance of 2 or more helpers is required for the patient to complete the activity. If activity was not attempted, code reason: 7-Patient Refused. 9-Not Applicable-not attempted and the patient did not perform the activity before the current illness, exacerbation or injury. 10-Not Attempted due to Environmental Limitations-(lack of equipment, weather restraints, etc.). 88-Not Attempted due to Medical Conditions or Safety Concerns. Sit to Stand (QC): 5 Weight Bearing Right Lower Extremity: Right Full Weight Bearing Left Lower Extremity: Left Full Weight Bearing Gait Training Does the Patient Walk?: Yes Distance: 150' Walk 10 feet (QC): 5 Walk 50 ft with 2 Turns(QC): 5 Walk 150 ft (QC): 5 Gait Persons Needed: 1 Gait Assistive Device: FWW Wheelchair Training Does the Pt Use a Wheelchair?: No Exercises NuStep Minutes: 12 NuStep Workload: 4 Treatments Pt transfers from recliner to standing at SBA then ambulates in hallway. O2 is 97% & HR 87 after walk, before NuStep is started. Pt uses NuStep for 12m at WL 4. O2 is checked after finishing and 97% with HR of 80. Pt returns to room at end of Rx. SNUFF BLENDER shows pt Seated EX that pt can continue to work on during weekend. Pt has all needs met, call light in hand and daughters present. Assessment Current Status: Good Progress Pt tolerates Rx well. Pt demonstrates SOA during activity but O2 and HR remain WNL. PT Short Term Goals Short Term Goals Time Frame: Jan 04, 2020 Roll Left & Right: 4 Sit to lyin Lying to sitting on side of be: 4 Sit to stand: 4 Walk 150 feet: 4 PT Battery Hand Goals Battery Hand Goals PT Battery Hand Goals Time Frame: Jan 18, 2020 Roll Left & Right (QC): 6 Sit to Lying (QC): 6 Lying-Sitting on Side/Bed(QC): 6 Sit to Stand (QC): 6 Chair/Jqp-eq-Hselb Xfer(QC): 6 Toilet Transfer (QC): 6 Car Transfer (QC): 6 Does the Patient Walk: Yes Walk 10 feet (QC): 6 Walk 50ft with 2 Turns (QC): 6 Walk 150 ft (QC): 6 Walking 10ft on Uneven Surface: 5 1 Step (curb) (QC): 5 4 Steps (QC): 5 12 Steps (QC): 9 Picking up an Object (QC): 4 Does the Pt use WC or Scooter?: No PT Plan Problem List Problem List: Activity Tolerance, Functional Strength Treatment/Plan Treatment Plan: Continue Plan of Care Treatment Plan: Bed Mobility, Education, Functional Activity Monica, Functional Strength, Group Therapy, Gait, Safety, Therapeutic Exercise, Transfers Treatment Duration: Jan 18, 2020 Frequency: At least 5 of 7 days/Wk (IRF) Estimated Hrs Per Day: 1.5 hours per day Patient and/or Family Agrees t: Yes Safety Risks/Education Patient Education: Gait Training, Transfer Techniques, Correct Positioning, Safety Issues Teaching Recipient: Patient, Family Teaching Methods: Discussion Response to Teaching: Verbalize Understanding Time/GCodes Time In: 1050 Time Out: 1115 Total Billed Treatment Time: 25 Total Billed Treatment 1, GT (10m) & EX (15m) ABHIJIT SANTANA SNUFF BLENDER Dec 30, 2019 11:25
--- NOTE | 2019-12-30 11:45 | NUR ---
SHAKING EPISODE WITNESSED BY FAMILY AND MEDICATED WITH FENTANYL. TEMP. 99.0. LASTED 10 MINUTES. FELL ASLEEP AFTER FENTANYL.
--- NOTE | 2019-12-30 12:30 | NUR ---
ANOTHER SHAKING EPISODE. DR. FERNANDEZ HERE AND WITNESSED EPISODE. THIS NURSE WAS ALSO IN THE ROOM WHEN EPISODE STARTED. PATIENT AT FIRST BECAME VAGUE AND RESTLESS AND SL. CONFUSED. TEMP. 99.4. MEDICATED WITH TYLENOL PER FAMILY'S REQUEST. LASTED 10-15 MINUTES.
--- NOTE | 2019-12-30 12:50 | Individualized Plan of Care ---
Individualized Plan of Care Rehab Nursing IPOC Order Admission Date Dec 28, 2019 at 11:35 Current Orders Orders Admission Order(Inpt,Obs,Sdc) (12/28/19 10:23) Vital Signs: Per Unit Policy ( 08,16,00 (12/28/19 10:23) Henry Sylvester 09,21 (12/28/19 10:23) Sequential Compression Device Q4H (12/28/19 10:23) Strategic Partnership Representative-Inpt Rehab Con (12/28/19 10:23) Rehab Nursing Orders-Ipoc (12/28/19 10:23) Physical Therapy Rehab Orders (12/28/19 10:23) Occupational Therapy Rehab Ord (12/28/19 10:23) Speech Therapy Rehab Orders (12/28/19 10:23) Cbc With Automated Diff (12/29/19 06:00) Comprehensive Metabolic Panel (12/29/19 06:00) Intake & Output 06,14,22 (12/28/19 10:23) Precautions (Aru) (12/28/19 10:23) Weekly Weight WEEK (12/28/19 10:23) Rehab-Intensity Of Therapy (12/28/19 10:23) Initiate Admission Nursing Pro .admission (12/28/19 10:23) Alprazolam Tablet (Xanax Tablet) (12/28/19 10:30) Calcium Carbonate Chew Tablet (Antacid C (12/28/19 10:30) Diphenhydramine Tablet (Benadryl Tablet) (12/28/19 10:30) Docusate Sodium Capsule (Colace Capsule) (12/28/19 21:00) Docusate Sodium Capsule (Colace Capsule) (12/28/19 10:30) Bisacodyl Suppository (Dulcolax Supposit (12/28/19 10:30) Lactulose Oral Solution (Enulose Oral So (12/28/19 10:30) Na Phos/Na Biphos Enema (Fleet Enema Gino (12/28/19 10:30) Guaifenesin/Codeine Syrup (Robitussin Ac (12/28/19 10:30) Loperamide Tablet (Imodium Tablet) (12/28/19 10:30) Enoxaparin Injection (Lovenox Injection) (12/28/19 10:30) Melatonin Tablet (Melatonin Tablet) (12/28/19 10:30) Polyethylene Glycol Powder Pkt (Miralax (12/28/19 21:00) Ondansetron Injection (Zofran Injectio (12/28/19 10:30) Ondansetron Oral Dissolve Tab (Zofran (12/28/19 10:30) Senna S Tablet (Senokot S Tablet) (12/28/19 21:00) Initiate Admission Nursing Pro .admission (12/28/19 10:23) Admission Arrival Bed Request (12/28/19 11:35) General/Regular (12/28/19 Lunch) Furosemide Injection (Lasix Injection) (12/28/19 13:23) Albuterol Pre-Mix Nebs (Rt) (Proventil (12/28/19 14:00) Svn Small Volume Nebulizer (12/28/19 12:44) Code/Resuscitation (12/28/19 12:48) Ensure Clear (12/28/19 Dinner) Alprazolam Tablet (Xanax Tablet) (12/28/19 13:00) Acetaminophen Tablet/Caplet (Tylenol T (12/28/19 13:00) Albuterol Pre-Mix Nebs (Rt) (Proventil (12/28/19 13:00) Antacid Suspension (Mylanta Suspension (12/28/19 13:00) Aspirin Chewable Tablet (Baby Aspirin Ch (12/29/19 09:00) Famotidine Tablet (Pepcid Tablet) (12/28/19 21:00) Lorazepam Injection (Ativan Injection) (12/28/19 13:00) Ondansetron Injection (Zofran Injectio (12/28/19 13:00) Pantoprazole Tablet (Protonix Tablet) (12/29/19 09:00) Promethazine Injection (Phenergan Injec (12/28/19 13:00) Sucralfate Tablet (Carafate Tablet) (12/28/19 16:00) Ceftriaxone For Iv Use (Rocephin For I (12/28/19 21:00) Fentanyl Injection (Sublimaze Injection (12/28/19 13:00) Consult Cardiology (12/28/19 12:48) Consult Oncology/Medical (12/28/19 12:48) Consult Pulmonology (12/28/19 12:48) Mat Initiate Protocol (12/28/19 12:48) Rt Request For Service (12/28/19 12:48) Request Ot Evaluate & Treat (12/28/19 12:48) Svn Small Volume Nebulizer (12/28/19 12:48) Svn Small Volume Nebulizer (12/28/19 12:48) Catheter(Urinary) Discontinue ONCE (12/28/19 20:00) Ambulate ,, (12/28/19 14:41) Sequential Compression Device Q4H (12/28/19 14:41) Dvt/Vte Risk - Notifiy Physici Q4H (12/28/19 14:41) Enoxaparin Injection (Lovenox Injection) (12/28/19 15:00) General/Regular (12/28/19 Dinner) Patient Visit (12/28/19 ) Pt Eval Moderate Complexity (12/28/19 ) Functional Activities, Ea 15 (12/28/19 ) Exercise Therap, Ea 15 Min (12/28/19 ) Gait Training, Ea 15 Min (12/28/19 ) Nursing Communication (Order) BID (12/28/19 17:48) Alprazolam Tablet (Xanax Tablet) (12/29/19 10:30) Amlodipine Tablet (Norvasc Tablet) (12/30/19 09:00) Aspirin Enteric Coated Tablet (Ecotrin T (12/30/19 09:00) Losartan Tablet (Cozaar Tablet) (12/30/19 09:00) Montelukast Tablet (Singulair Tablet) (12/29/19 21:00) Ondansetron Oral Dissolve Tab (Zofran (12/29/19 10:30) Pantoprazole Tablet (Protonix Tablet) (12/30/19 09:00) Tramadol Tablet (Ultram Tablet) (12/29/19 10:30) Patient's Own Med(Rx Use Only) (Patient' (12/30/19 09:00) Hydroxyzine Cap/Tab (Vistaril) (12/29/19 10:45) Amlodipine Tablet (Norvasc Tablet) (12/30/19 09:00) Loratadine Tablet (Claritin Tablet) (12/30/19 09:00) Simvastatin Tablet (Zocor Tablet) (12/29/19 21:00) Famotidine Tablet (Pepcid Tablet) (12/29/19 10:49) Hydrocodone/Apap 5/325 Tablet (Lortab 5 (12/29/19 11:00) Tramadol Tablet (Ultram Tablet) (12/29/19 11:00) Sodium Chloride Flush (Catheter Flush Sy (12/29/19 11:15) Sodium Chloride Flush (Catheter Flush Sy (12/29/19 14:00) Ensure Clear (12/29/19 Dinner) Patient Visit (12/29/19 ) Speech Sound Lang Comp (12/29/19 ) Patient Visit (12/29/19 ) Gait Training, Ea 15 Min (12/29/19 ) Exercise Therap, Ea 15 Min (12/29/19 ) Functional Activities, Ea 15 (12/29/19 ) Therapeutic, Group (12/29/19 ) Patient May Use Own Med,Single (Patient (12/29/19 17:00) Patient May Use Own Med,Single (Patient (12/29/19 17:00) Patient's Own Med(Rx Use Only) (Patient' (12/30/19 09:00) Albuterol Pre-Mix Nebs (Rt) (Proventil (12/30/19 03:00) Patient Visit (12/30/19 ) Gait Training, Ea 15 Min (12/30/19 ) Exercise Therap, Ea 15 Min (12/30/19 ) Morphine Oral Concentration (Roxinol Ora (12/30/19 12:45) Baclofen Tablet (Lioresal Tablet) (12/30/19 13:00) Cbc With Automated Diff (12/31/19 05:00) Comprehensive Metabolic Panel (12/31/19 05:00) Ct Head Wo (12/30/19 13:20) Cbc With Automated Diff (12/30/19 13:20) Comprehensive Metabolic Panel (12/30/19 13:20) Urinalysis (12/30/19 15:00) Straight Cath (Urinary) (12/30/19 13:35) Rehab Nursing Orders: Ongoing Assess. of Cognitive Status, Ongoing Assess. of Function Status, Bladder Management, Bladder Scan, Bladder Training, Bowel Management, Bowel Training, Disease Management & Educaiton, DVT Prophylaxis, Fall Prevention, Fluid/Electrolyte/Nutrition Mgmt, Infection Prevention, Medication Management & Education, Management of Risks & Complications, Management of Skin Intergrity, Nutrition Management, Pain Management, Patient/Family Support, Safety Management Intensity of Therapy to be met Patient to be seen: Min.3h per day/5 of 7d PT IPOC Problem List: Activity Tolerance, Functional Strength Treatment Plan: Continue Plan of Care Bed Mobility, Education, Functional Activity Monica, Functional Strength, Group Therapy, Gait, Safety, Therapeutic Exercise, Transfers Treatment Duration: Jan 18, 2020 Frequency: At least 5 of 7 days/Wk (IRF) Estimated Hrs Per Day: 1.5 hours per day OT IPOC Problems: Decreased Activ Tolerance, Decreased Safety Aware, Decreased UE Strength, Impaired Cognition, Impaired Funct Balance, Impaired I ADL's, Impaired Self-Care Skills OT Treatment, Training and Edu: Yes Plan of Care: ADL Retraining, Caregiver Training, Functional Mobility Treatment Duration: Jan 11, 2020 Frequency: At least 5 of 7 days/Wk (IRF) Estimated Hrs Per Day: 1.[address] IPOC Speech Therapy Treatment Plan: Discontinue ST Treatment Duration: Dec 29, 2019 Frequency: 1 time per week Estimated Hrs Per Day: .25 hour per day Strategic Partnership Representative/Case Mgmt Strategic Partnership Representative/Case Managemen: Discharge Planning Dietitian/Mine Analyst Dietitian/Mine Analyst to monitor nutritional status and make changes and/or recommendations as needed and work with speech pathology on dietary upgrades as the occur. Physician IPOC Medical Issues being managed closely and that require the 24 hour availability of a physician: Recent sepsis requiring IV abx and episodes of tremors will need close monitoring for risk of decompensation Brief Synthesis of Preadmission Screen, Post-Admission Evaluation, and Therapy Evaluations: Medical Prognosis: Good Anticipated Length of Stay: 7 days TAHIR MARTINEZ DO Dec 30, 2019 12:50
--- NOTE | 2019-12-30 12:51 | PM&R Progress Note ---
Subjective HPI/CC On Admission Date Seen by Provider: Dec 30, 2019 Time Seen by Provider: 13:00 Subjective/Events-last exam Patient overall doing well Has "episodes" a few times a day I actually witnessed it this afternoon on rounds and she has tremors and shaking all over her body but her lungs remained clear and her vitals remained stable and they are ALWAYS witnessed especially since her family stays with her 14/06. The more I stood by her and talked to her more she had improvement in the tremors. I gave her Roxinol to see if we could wean off the Fentanyl she has been receiving so we will see if that helps acutely and then will order CT scan and labs and repeat urine test in/out cath specimen to rule out any and all organic basis of these "spells" but they are not seizures and they are not accompanied by any fevers of alteration in vitals signs this seems to be based on a non-medical issue. Checked meds and labs Conferred with RN Reviewed therapy notes Review of Systems General: Fatigue Neurological: Other (tremors) Objective Exam Vital Signs Vital Signs Date Time Temp Pulse Resp B/P (MAP) Pulse Ox O2 Delivery O2 Flow Rate FiO2 12/30/19 07:07 94 Nasal Cannula 2.00 12/30/19 05:15 37.1 71 18 158/69 (98) 12/29/19 22:29 28 Capillary Refill : Less Than 3 Seconds General Appearance: No Apparent Distress, WD/WN, Chronically ill HEENT: PERRL/EOMI, Pharynx Normal, Moist Mucous Membranes Neck: Full Range of Motion, Normal Inspection, Non Tender, Supple Respiratory: Chest Non Tender, Lungs Clear, No Accessory Muscle Use, No Respiratory Distress, Decreased Breath Sounds Cardiovascular: Regular Rate, Rhythm, No Edema, Normal Peripheral Pulses Gastrointestinal: Normal Bowel Sounds, No Organomegaly, No Pulsatile Mass, Non Tender, Soft Back: Normal Inspection, No CVA Tenderness, No Vertebral Tenderness Extremity: Normal Capillary Refill, Normal Inspection, Normal Range of Motion, Non Tender, No Calf Tenderness, No Pedal Edema Neurologic/Psychiatric: Alert, Oriented x3, No Motor/Sensory Deficits, Normal Mood/Affect, supervising chef II-XII Norm as Tested, Other (anxious) Skin: Normal Color, Warm/Dry Results/Procedures Lab Laboratory Tests 12/30/19 13:45 Patient resulted labs reviewed. FIM Transfers Therapy Code Descriptions/Definitions Functional [place] Measure: 0=Not Assessed/NA 4=Minimal Assistance 1=Total Assistance 5=Supervision or Setup 2=Maximal Assistance 6=Modified [place] 3=Moderate Assistance 7=Complete IndependenceSCALE: Activities may be completed with or without assistive devices. 7-Hwucbhvxps-wdtuktr completes the activity by him/herself with no assistance from a helper. 5-Set-up or Clean-up Assistance-helper sets up or cleans up; patient completes activity. [place] assists only prior to or following the activity. 4-Supervision or Touching Assistance-helper provides verbal cues and/or touching/steadying and/or contact guard assistance as patient completes activity. Assistance may be provided throughout the activity or intermittently. 3-Partial/Moderate Assistance-helper does LESS THAN HALF the effort. [place] lifts, holds or supports trunk or limbs, but provides less than half the effort. 2-Substantial/Maximal Assistance-helper does MORE THAN HALF the effort. [place] lifts or holds trunk or limbs and provides more than half the effort. 3-Yndivgqpq-ajzlzl does ALL the effort. Patient does none of the effort to complete the activity. Or, the assistance of 2 or more helpers is required for the patient to complete the activity. If activity was not attempted, code reason: 7-Patient Refused. 9-Not Applicable-not attempted and the patient did not perform the activity before the current illness, exacerbation or injury. 10-Not Attempted due to Environmental Limitations-(lack of equipment, weather restraints, etc.). 88-Not Attempted due to Medical Conditions or Safety Concerns. Roll Left to Right (QC): 6 Sit to Lying (QC): 6 Sit to Stand (QC): 5 Chair/Qir-kv-Gmogo Xfer(QC): 6 Car Transfer (QC): 88 Gait Training Does the Patient Walk?: Yes Distance: 150' Walk 10 feet (QC): 5 Walk 50 ft with 2 Turns(QC): 5 Walk 150 ft (QC): 5 Walking 10ft/uneven surface-QC: 88 Gait Persons Needed: 1 Gait Assistive Device: FWW Wheelchair Training Does the Pt Use a Wheelchair?: No Stair Training 1 Step (curb) (QC): 88 4 Steps (QC): 88 12 Steps (QC): 88 Balance Picking up an Object (QC): 88 ADL-Treatment Eating (QC): 6 Oral Hygiene (QC): 7 (Pt states she has already completed oral care this morning) Shower/Bathe Self (QC): 4 (SBA) Upper Body Dressing (QC): 3 (min assist for bra, set up for shirt) Lower Body Dressing (QC): 4 (SBA) On/Off Footwear (QC): 5 Toileting Hygiene (QC): 5 Toilet Transfer (QC): 5 Assessment/Plan Assessment and Plan Assess & Plan/Chief Complaint Assessment: s/p sepsis Bacteremia E coli still on Rocephin Tremors/rigors of uncertain source checking CT scan and labs today but does not appears to be organically based but checking to assure that indeed is correct COPD CAD Esophageal spasms DJD of spine CRI s/p ARF HTN HLP Anemia s/p transfusions Plan: IV abx Eval tremor source? IRF protocol (1) Debility (2) Chronic renal insufficiency Status: Chronic (3) Gastritis Status: Acute (4) Situational anxiety Status: Acute (5) Urinary tract infection Status: Acute (6) Chronic anemia Status: Chronic (7) COPD (chronic obstructive pulmonary disease) Status: Chronic (8) Gout Status: Chronic (9) CAD (coronary artery disease) (10) Dysphagia (11) Hyperlipidemia Status: Chronic (12) Neuropathy Status: Acute (13) Radiculopathy (14) History of coronary artery stent placement Status: Chronic TAHIR MARTINEZ DO Dec 30, 2019 12:51
--- NOTE | 2019-12-30 12:57 | Progress Note ---
Standard Progress Note Progress Notes/Assess & Plan Date Seen by a Provider: Dec 30, 2019 Time Seen by a Provider: 12:52 Progress/Assessment & Plan 89-year-old female admitted to the hospital with E. coli sepsis and now transferred to rehab floor. Patient has previous history of cold agglutinin disease and was anemic at the time of admission and received packed red blood cell transfusion with the blood warmer. Hemoglobin has remained stable in the ~8.0 g/dl region since transfusion. Her room is being kept at 75 degrees F, which is the highest the thermostat will go, and she also has blankets on her at all times. Patient complains of increasing rigor episodes in the last few days that cause severe back or generalized pain within minutes. If she is given fentanyl, the episodes resolve in 10-15 minutes. It is similar to the symptoms she had when she was first admitted, but she has never experienced such a problem before this admission. Yesterday, her labs remained fairly stable, which normalized bilirubin suggesting resolution of acute hemolysis. 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 Regardless, we will recheck labs in the AM. Will continue to follow. JANE FERNANDEZ MD Dec 30, 2019 12:57
--- NOTE | 2019-12-30 13:20 | NUR ---
A THIRD EPISODE. DR. MARTINEZ HERE. MEDICATED WITH NEW ORDERS OF BACLOFEN AND ROXINOL. PATIENT COMPLAINS OF SEVERE BACK PAIN DURING THESE EPISODES, BUT NO FACE GRIMACING NOTED. FAMILY VERY CONCERNED AND DR. MARTINEZ VISITED WITH THEM.
[2019-12-30] MEDS: BACLOFEN 10 MG (LIORESAL) TAB PO SCH ×2 (13:24→20:35)
[2019-12-30] MEDS: morphine (ROXINOL) 10 MG/0.5 ML oral conc 0.5 ML PO PRN (13:24)
[2019-12-30 13:56] LABS: BASOPHILS % (AUTO) 0 % (0-10); EOSINOPHILS # (AUTO) 0.3 10^3/uL (0.0-0.3); EOSINOPHILS % (AUTO) 4 % (0-10); HEMATOCRIT 25 % (35-52); HEMOGLOBIN 7.9 G/DL (11.5-16.0); LYMPHOCYTES # (AUTO) 1.6 X 10^3 (1.0-4.0); LYMPHOCYTES % (AUTO) 18 % (12-44); MEAN CORPUSCULAR HEMOGLOBIN 27 PG (25-34); MEAN CORPUSCULAR HGB CONC 31 G/DL (32-36); MEAN CORPUSCULAR VOLUME 87 FL (80-99); MEAN PLATELET VOLUME 9.9 FL (7.4-10.4); MONOCYTES # (AUTO) 0.6 X 10^3 (0.0-1.0); MONOCYTES % (AUTO) 7 % (0-12); NEUTROPHILS # (AUTO) 6.3 X 10^3 (1.8-7.8); NEUTROPHILS % (AUTO) 71 % (42-75); PLATELET COUNT 347 10^3/uL (130-400); RED CELL DISTRIBUTION WIDTH 15.4 % (10.0-14.5); WHITE BLOOD COUNT 8.9 10^3/uL (4.3-11.0)
[2019-12-30 14:14] LABS: ALBUMIN 3.5 GM/DL (3.2-4.5); BILIRUBIN,TOTAL 0.5 MG/DL (0.1-1.0); CALCIUM 8.5 MG/DL (8.5-10.1); CREATININE SERUM 1.64 MG/DL (0.60-1.30); POTASSIUM 4.1 MMOL/L (3.6-5.0); TOTAL PROTEIN 6.5 GM/DL (6.4-8.2)
[2019-12-30] MEDS: ENOXAPARIN 30 MG/0.3 ML (LOVENOX) SYR SC SCH (15:13)
[2019-12-30 15:17] LABS: BILIRUBIN,URINE NEGATIVE (NEGATIVE); CLARITY,URINE CLEAR; COLOR,URINE YELLOW; GLUCOSE, URINE (UA) NEGATIVE (NEGATIVE); KETONES,URINE NEGATIVE (NEGATIVE); LEUKOCYTE ESTERASE ,URINE NEGATIVE (NEGATIVE); NITRITE,URINE NEGATIVE (NEGATIVE); PH,URINE 5.5 (5-9); PROTEIN,URINE TRACE (NEGATIVE)
[2019-12-30 15:34] LABS: BACTERIA,URINE TRACE /HPF; HYALINE CASTS, URINE RARE /LPF; SQUAMOUS EPITHELIAL CELL,UR 0-2 /HPF; WBC,URINE 0-2 /HPF
--- NOTE | 2019-12-30 17:02 | Diagnostic Imaging Report ---
PROCEDURE: CT head without contrast. TECHNIQUE: Multiple contiguous axial images were obtained through the brain without the use of intravenous contrast. Auto Exposure Controls were utilized during the CT exam to meet ALARA standards for radiation dose reduction. INDICATION: Tremor. COMPARISON: Comparison is made to examination of 02/07/2010. FINDINGS: Ventricles and sulci are diffusely prominent. Low-density is seen throughout the deep white matter of both hemispheres. This has shown mild increase when compared to previous study. No hemorrhage is identified. There is no abnormal mass effect or shift of midline structures. There is no geographic low-density to indicate territorial infarct. IMPRESSION: Central white matter low density has increased compared to previous study which likely represents progression of chronic white matter disease secondary to chronic microvascular ischemia. MRI has greater sensitivity for acute infarct if indicated. Dictated by: Dictated on workstation # [id number]
[2019-12-30 17:52] VITALS: BP 146/69
--- NOTE | 2019-12-30 18:00 | NUR ---
NAPPED THIS AFTERNOON. SITTING UP IN CHAIR AND FEELING WELL RIGHT NOW.
--- NOTE | 2019-12-30 19:08 | NUR ---
bedside report received from MARICEL CORDON, assume care of pt
[2019-12-30] MEDS: MONTELUKAST 10 MG (SINGULAIR) TAB PO SCH (20:34)
[2019-12-30] MEDS: SIMvastatin 10 MG (ZOCOR) TAB PO SCH (20:34)
--- NOTE | 2019-12-30 20:40 | NUR ---
pt Colace & refused miralax & Senokot, readied for bed, up to bathroom with 1 person assist & walker, bed/ chair alarm on, family at bedside
[2019-12-30] MEDS: cefTRIAXone FOR IV USE 1,000 MG in WATER (STERILE) FOR INJECTION 10 ML IV SCH (21:25)
--- NOTE | 2019-12-30 21:40 | NUR ---
to bed with side rails up x4 & bed alarm on
[2019-12-31] MEDS: RT-ALBUTEROL SULF 2.5 MG/3 ML PRE-MIX VIAL INH SCH ×3 (03:40→23:59)
[2019-12-31] MEDS: ACETAMINOPHEN 325 MG TABLET PO PRN (04:05)
--- NOTE | 2019-12-31 04:05 | NUR ---
c/o generalized pain level 4/10 on numeric scale, Tylenol 650mg given
--- NOTE | 2019-12-31 04:45 | NUR ---
resting quietly in bed, pain level 0/10 on flacc scale
[2019-12-31 05:44] LABS: BASOPHILS % (AUTO) 0 % (0-10); EOSINOPHILS # (AUTO) 0.3 10^3/uL (0.0-0.3); EOSINOPHILS % (AUTO) 4 % (0-10); HEMATOCRIT 24 % (35-52); HEMOGLOBIN 7.6 G/DL (11.5-16.0); LYMPHOCYTES # (AUTO) 1.8 X 10^3 (1.0-4.0); LYMPHOCYTES % (AUTO) 22 % (12-44); MEAN CORPUSCULAR HEMOGLOBIN 27 PG (25-34); MEAN CORPUSCULAR HGB CONC 31 G/DL (32-36); MEAN CORPUSCULAR VOLUME 87 FL (80-99); MONOCYTES # (AUTO) 0.7 X 10^3 (0.0-1.0); MONOCYTES % (AUTO) 9 % (0-12); NEUTROPHILS # (AUTO) 5.4 X 10^3 (1.8-7.8); NEUTROPHILS % (AUTO) 65 % (42-75); PLATELET COUNT 345 10^3/uL (130-400); RED CELL DISTRIBUTION WIDTH 14.9 % (10.0-14.5); WHITE BLOOD COUNT 8.2 10^3/uL (4.3-11.0)
[2019-12-31 06:00] VITALS: BP 156/86
[2019-12-31 06:01] LABS: ALBUMIN 3.3 GM/DL (3.2-4.5); BILIRUBIN,TOTAL 0.3 MG/DL (0.1-1.0); CALCIUM 8.5 MG/DL (8.5-10.1); CREATININE SERUM 1.53 MG/DL (0.60-1.30); POTASSIUM 3.8 MMOL/L (3.6-5.0); TOTAL PROTEIN 6.1 GM/DL (6.4-8.2)
[2019-12-31] MEDS: CATHETER FLUSH 10 ML SYR IV SCH ×3 (06:39→20:33)
[2019-12-31] MEDS: SUCRALFATE 1 GM (CARAFATE) TAB PO SCH ×4 (06:39→20:35)
[2019-12-31 08:00] VITALS: BP 134/69
--- NOTE | 2019-12-31 08:00 | NUR ---
STATES SLEPT WELL. CHEERFUL. DAUGHTER AT BEDSIDE. IS VERY HAPPY THAT SHE DID NOT HAVE ANY OF HER SHAKING EPISODES LAST NIGHT.
[2019-12-31] MEDS: amLODIPine 5 MG (NORVASC) TAB PO SCH (08:50)
[2019-12-31] MEDS: LOSARTAN 50 MG (COZAAR) TAB PO SCH (08:50)
[2019-12-31] MEDS: amLODIPine 2.5MG (NORVASC) TAB PO SCH (08:50)
[2019-12-31] MEDS: LORATADINE (CLARITIN) 10 MG TAB PO SCH (08:50)
[2019-12-31] MEDS: BACLOFEN 10 MG (LIORESAL) TAB PO SCH ×3 (08:50→20:34)
[2019-12-31] MEDS: PANTOPRAZOLE 40 MG (PROTONIX) TAB PO SCH (08:50)
[2019-12-31] MEDS: ASPIRIN E.C. 81 MG (ECOTRIN) TAB PO SCH (08:50)
[2019-12-31] MEDS: SENNA W/DOCUSATE (SENOKOT S) TABLET PO SCH ×2 (08:50→20:43)
[2019-12-31] MEDS: DOCUSATE SODIUM 100 MG (COLACE) CAP PO SCH ×2 (08:51→20:42)
[2019-12-31] MEDS: TRELEGY ELLIPTA IH SCH (08:52)
[2019-12-31] MEDS: polyethylene glycoL POWDER 17 GM (MIRALAX) PACK PO SCH ×2 (08:53→19:16)
[2019-12-31 10:24] VITALS: BP 156/86
--- NOTE | 2019-12-31 11:45 | NUR ---
DR. FERNANDEZ HERE TO SEE PATIENT. O2 WAS TITRATED TO 1L BY R.T. STILL GETS QUITE SOB WITH EXERTION, SO WILL MONITOR O2 SAT.
--- NOTE | 2019-12-31 13:41 | PM&R Progress Note ---
Subjective HPI/CC On Admission Date Seen by Provider: Dec 31, 2019 Time Seen by Provider: 13:00 Subjective/Events-last exam Patient overall doing very well Hasn't had "episodes" since after Baclofen started No falls O2 maintained Upper airway wheezing but minimal BM+ Rocephin last dose tomorrow evening UA negative on check yesterday along with labs and CT Checked meds and labs Conferred with RN Reviewed therapy notes Review of Systems General: Fatigue Pulmonary: Dyspnea Objective Exam Vital Signs Vital Signs Date Time Temp Pulse Resp B/P (MAP) Pulse Ox O2 Delivery O2 Flow Rate FiO2 12/31/19 17:53 37.7 76 20 150/54 (86) 96 Nasal Cannula 1.00 12/29/19 22:29 28 Capillary Refill : Less Than 3 Seconds General Appearance: No Apparent Distress, WD/WN, Chronically ill HEENT: PERRL/EOMI, Pharynx Normal, Moist Mucous Membranes Neck: Full Range of Motion, Normal Inspection, Non Tender, Supple Respiratory: Chest Non Tender, Lungs Clear, No Accessory Muscle Use, No Respiratory Distress, Decreased Breath Sounds Cardiovascular: Regular Rate, Rhythm, No Edema, Normal Peripheral Pulses Gastrointestinal: Normal Bowel Sounds, No Organomegaly, No Pulsatile Mass, Non Tender, Soft Back: Normal Inspection, No CVA Tenderness, No Vertebral Tenderness Extremity: Normal Capillary Refill, Normal Inspection, Normal Range of Motion, Non Tender, No Calf Tenderness, No Pedal Edema Neurologic/Psychiatric: Alert, Oriented x3, No Motor/Sensory Deficits, Normal Mood/Affect, embroidery assistant II-XII Norm as Tested, Other (anxious) Skin: Normal Color, Warm/Dry Results/Procedures Lab Laboratory Tests 12/31/19 05:25 Patient resulted labs reviewed. FIM Transfers Therapy Code Descriptions/Definitions Functional [place] Measure: 0=Not Assessed/NA 4=Minimal Assistance 1=Total Assistance 5=Supervision or Setup 2=Maximal Assistance 6=Modified [place] 3=Moderate Assistance 7=Complete IndependenceSCALE: Activities may be completed with or without assistive devices. 2-Zcyjcoxeex-hcrvlxo completes the activity by him/herself with no assistance from a helper. 5-Set-up or Clean-up Assistance-helper sets up or cleans up; patient completes activity. [place] assists only prior to or following the activity. 4-Supervision or Touching Assistance-helper provides verbal cues and/or touching/steadying and/or contact guard assistance as patient completes activity. Assistance may be provided throughout the activity or intermittently. 3-Partial/Moderate Assistance-helper does LESS THAN HALF the effort. [place] lifts, holds or supports trunk or limbs, but provides less than half the effort. 2-Substantial/Maximal Assistance-helper does MORE THAN HALF the effort. [place] lifts or holds trunk or limbs and provides more than half the effort. 5-Zecfghhoj-hloqzt does ALL the effort. Patient does none of the effort to co mplete the activity. Or, the assistance of 2 or more helpers is required for the patient to complete the activity. If activity was not attempted, code reason: 7-Patient Refused. 9-Not Applicable-not attempted and the patient did not perform the activity before the current illness, exacerbation or injury. 10-Not Attempted due to Environmental Limitations-(lack of equipment, weather restraints, etc.). 88-Not Attempted due to Medical Conditions or Safety Concerns. Roll Left to Right (QC): 6 Sit to Lying (QC): 6 Sit to Stand (QC): 5 Chair/[place] Xfer(QC): 6 Car Transfer (QC): 88 Gait Training Does the Patient Walk?: Yes Distance: 150' Walk 10 feet (QC): 5 Walk 50 ft with 2 Turns(QC): 5 Walk 150 ft (QC): 5 Walking 10ft/uneven surface-QC: 88 Gait Persons Needed: 1 Gait Assistive Device: FWW Wheelchair Training Does the Pt Use a Wheelchair?: No Stair Training 1 Step (curb) (QC): 88 4 Steps (QC): 88 12 Steps (QC): 88 Balance Picking up an Object (QC): 88 ADL-Treatment Eating (QC): 6 Oral Hygiene (QC): 7 (Pt states she has already completed oral care this morning) Shower/Bathe Self (QC): 4 (SBA) Upper Body Dressing (QC): 3 (min assist for bra, set up for shirt) Lower Body Dressing (QC): 4 (SBA) On/Off Footwear (QC): 5 Toileting Hygiene (QC): 5 Toilet Transfer (QC): 5 Assessment/Plan Assessment and Plan Assess & Plan/Chief Complaint Assessment: s/p sepsis Bacteremia E coli still on Rocephin s/p Tremors/rigors of uncertain source normal CT scan and labs and does not appear to be organically based but checking to assure that indeed is correct and seems to have resolved with Baclofen COPD CAD Esophageal spasms DJD of spine CRI s/p ARF HTN HLP Anemia s/p transfusions Plan: IV abx to complete tomorrow Baclofen has resolved the tremors IRF protocol (1) Debility (2) Chronic renal insufficiency Status: Chronic (3) Gastritis Status: Acute (4) Situational anxiety Status: Acute (5) Urinary tract infection Status: Acute (6) Chronic anemia Status: Chronic (7) COPD (chronic obstructive pulmonary disease) Status: Chronic (8) Gout Status: Chronic (9) CAD (coronary artery disease) (10) Dysphagia (11) Hyperlipidemia Status: Chronic (12) Neuropathy Status: Acute (13) Radiculopathy (14) History of coronary artery stent placement Status: Chronic TAHIR MARTINEZ DO Dec 31, 2019 13:41
--- NOTE | 2019-12-31 14:00 | NUR ---
AMBULATED IN ADAME WITH WALKER, PORTABLE O2 AND NURSE. TOLERATED WELL. FAMILY AT BEDSIDE.
[2019-12-31] MEDS: ENOXAPARIN 30 MG/0.3 ML (LOVENOX) SYR SC SCH (15:31)
[2019-12-31] MEDS: ALPRAZolam 0.25 MG (XANAX) TAB PO PRN (16:56)
--- NOTE | 2019-12-31 17:00 | NUR ---
FEELS "SHAKY", BUT NOT HAVING AN EPISODE. ADMITS TO ANXIETY AND MEDICATED WITH XANAX. FAMILY REMAINS AT BEDSIDE.
[2019-12-31 17:53] VITALS: BP 150/54
[2019-12-31] MEDS: cefTRIAXone FOR IV USE 1,000 MG in WATER (STERILE) FOR INJECTION 10 ML IV SCH (20:33)
[2019-12-31] MEDS: MONTELUKAST 10 MG (SINGULAIR) TAB PO SCH (20:34)
[2019-12-31] MEDS: SIMvastatin 10 MG (ZOCOR) TAB PO SCH (20:34)
[2020-01-01 05:18] VITALS: BP 163/79
[2020-01-01] MEDS: SUCRALFATE 1 GM (CARAFATE) TAB PO SCH ×4 (05:35→22:16)
[2020-01-01] MEDS: CATHETER FLUSH 10 ML SYR IV SCH ×3 (05:35→21:38)
[2020-01-01 06:11] LABS: BASOPHILS % (AUTO) 0 % (0-10); EOSINOPHILS # (AUTO) 0.4 10^3/uL (0.0-0.3); EOSINOPHILS % (AUTO) 4 % (0-10); HEMATOCRIT 28 % (35-52); HEMOGLOBIN 8.5 G/DL (11.5-16.0); LYMPHOCYTES # (AUTO) 2.2 X 10^3 (1.0-4.0); LYMPHOCYTES % (AUTO) 21 % (12-44); MEAN CORPUSCULAR HEMOGLOBIN 27 PG (25-34); MEAN CORPUSCULAR HGB CONC 31 G/DL (32-36); MEAN CORPUSCULAR VOLUME 87 FL (80-99); MEAN PLATELET VOLUME 10.1 FL (7.4-10.4); MONOCYTES # (AUTO) 0.7 X 10^3 (0.0-1.0); MONOCYTES % (AUTO) 7 % (0-12); NEUTROPHILS # (AUTO) 7.3 X 10^3 (1.8-7.8); NEUTROPHILS % (AUTO) 68 % (42-75); PLATELET COUNT 431 10^3/uL (130-400); RED CELL DISTRIBUTION WIDTH 15.3 % (10.0-14.5); WHITE BLOOD COUNT 10.6 10^3/uL (4.3-11.0)
[2020-01-01 06:34] LABS: ALBUMIN 3.7 GM/DL (3.2-4.5); BILIRUBIN,TOTAL 0.5 MG/DL (0.1-1.0); CALCIUM 9.3 MG/DL (8.5-10.1); CREATININE SERUM 1.54 MG/DL (0.60-1.30); POTASSIUM 4.1 MMOL/L (3.6-5.0); TOTAL PROTEIN 6.9 GM/DL (6.4-8.2)
[2020-01-01] MEDS: ONDANSETRON 4 MG/2 ML (SDV) Z0FRAN IV PRN ×2 (07:18→21:51)
--- NOTE | 2020-01-01 07:30 | NUR ---
pt c/o nausea while up to restroom, begins vomiting clear fluid. zofran IV given per order. patient returns to chair to rest. at 0830, patient takes morning medications with ease. @ 0845, patient begins to vomit clear liquid. cool washcloth applied to neck, patient and family voice at home maalox or mylanta solution are the only things that help if she feels this way. 1 cup maalox given po per med order. @ 0930, patient requests to rest in bed. will con't to monitor.
--- NOTE | 2020-01-01 08:25 | Cardiology Progress Note ---
Subjective Date Seen by Provider: Jan 01, 2020 Time Seen by Provider: 08:23 Subjective/Events-last exam Patient asleep in bed, daughter reports pt was unable to sleep last night and having restless leg and nausea. Denies any chest pain Review of Systems General: Other (unable to provide review of systems) Objective-Cardiology Exam Last Set of Vital Signs Vital Signs 12/29/19 01/01/20 01/01/20 22:29 05:18 09:00 Temp 37.3 Pulse 80 Resp 20 B/P (MAP) 163/79 (107) Pulse Ox 95 O2 Delivery Nasal Cannula O2 Flow Rate 1.00 FiO2 28 Capillary Refill : Less Than 3 Seconds I&O Intake and Output 01/01/20 00:00 Intake Total 1430 ml Balance 1430 ml Intake Oral 1430 ml # Voids 6 # Bowel Movements 1 HEENT: Atraumatic Neck: No JVD, No Thyromegaly Lungs: Clear to Auscultation, Normal Air Movement Heart: Regular Rate, Normal S1, Normal S2, No Murmurs Abdomen: Normal Bowel Sounds, Soft, No Tenderness, No Hepatosplenomegaly, No Masses Extremities: No Clubbing, No Cyanosis, No Edema, Normal Pulses, No Tenderness/Swelling Skin: No Rashes, No Breakdown, No Significant Lesion Neuro: Normal Tone, Sensation Intact Psych/Mental Status: Mental Status NL, Mood NL Results Lab Laboratory Tests 01/01/20 05:35 A/P-Cardiology Admission Diagnosis Sepsis Anemia Coronary artery disease Hypertension Assessment/Plan Sepsis with UTI, improving, receiving antibiotic and managed by primary care team. Starting on physical therapy. Anemia, cold agglutinin disease, received blood transfusion with warm blood, H/H stable, continue to monitor. Chest pain, generalized body ache, history of jvwh-mw-dxwjdfwj coronary artery disease, no further episodes of chest pain were reported. Continue to monitor Dyspnea, history of bronchial asthma, history of C Pap use Coronary artery disease, history of stent to the LAD, cardiac catheterization March 2013 showing patent stents in the proximal LAD with mild in-stent restenosis,mild to moderate disease in the mid LAD and mid circumflex artery, had history of abnormal stress test in the past and has been refusing cardiac catheterization. History of gastroesophageal reflux disease, esophagitis, mild dysphagia, esophageal spasm, managed by primary care team Hypertension, monitor blood pressure History of hyperlipidemia, monitor lipids Moderate carotid stenosis tortuous carotids by ultrasound, continue to monitor Acute on chronic renal failure, improving slowly, continue to monitor. Patient was seen and evaluated with Gertrude, examination performed, management plan was discussed, agree with the current scribed note, I made few changes to the note using Italic font Did not sleep well last night,, having restless leg syndrome currently sleeping, no new complaint. Continue to monitor Clinical Quality Measures DVT/VTE Risk/Contraindication: Risk Factor Score Per Nursin RFS Level Per Nursing on Admit: 4+=Very High GERTRUDE LEWIS Jan 01, 2020 08:25 ELO HOLBROOK MD Jan 01, 2020 10:41
[2020-01-01] MEDS: DOCUSATE SODIUM 100 MG (COLACE) CAP PO SCH ×2 (09:09→22:16)
[2020-01-01] MEDS: ASPIRIN E.C. 81 MG (ECOTRIN) TAB PO SCH (09:09)
[2020-01-01] MEDS: amLODIPine 2.5MG (NORVASC) TAB PO SCH (09:09)
[2020-01-01] MEDS: SENNA W/DOCUSATE (SENOKOT S) TABLET PO SCH ×2 (09:10→22:17)
[2020-01-01] MEDS: amLODIPine 5 MG (NORVASC) TAB PO SCH (09:10)
[2020-01-01] MEDS: LOSARTAN 50 MG (COZAAR) TAB PO SCH (09:10)
[2020-01-01] MEDS: LORATADINE (CLARITIN) 10 MG TAB PO SCH (09:10)
[2020-01-01] MEDS: PANTOPRAZOLE 40 MG (PROTONIX) TAB PO SCH (09:10)
[2020-01-01] MEDS: BACLOFEN 10 MG (LIORESAL) TAB PO SCH ×3 (09:13→22:16)
[2020-01-01] MEDS: polyethylene glycoL POWDER 17 GM (MIRALAX) PACK PO SCH ×2 (09:15→21:38)
[2020-01-01] MEDS: ANTACID SUSP 30 ML UDC (MYLANTA) PO PRN ×2 (09:31→17:29)
[2020-01-01] MEDS: TRELEGY ELLIPTA IH SCH (09:33)
[2020-01-01] MEDS: RT-ALBUTEROL SULF 2.5 MG/3 ML PRE-MIX VIAL INH SCH ×2 (09:55→19:21)
--- NOTE | 2020-01-01 11:02 | Occupational Ther Daily Note ---
OT Current Status-Daily Note Subjective Pt seen in bed, denies pain but pt states she is nauseous. Pt's daughters present. Pt seen 2 separate times. Mental Status/Objective Attachments: Oxygen ADL-Treatment Therapy Code Descriptions/Definitions Functional [place] Measure: 0=Not Assessed/NA 4=Minimal Assistance 1=Total Assistance 5=Supervision or Setup 2=Maximal Assistance 6=Modified [place] 3=Moderate Assistance 7=Complete IndependenceSCALE: Activities may be completed with or without assistive devices. 1-Tfdyzdxqra-udkhhmq completes the activity by him/herself with no assistance from a helper. 5-Set-up or Clean-up Assistance-helper sets up or cleans up; patient completes activity. [place] assists only prior to or following the activity. 4-Supervision or Touching Assistance-helper provides verbal cues and/or touching/steadying and/or contact guard assistance as patient completes activity. Assistance may be provided throughout the activity or intermittently. 3-Partial/Moderate Assistance-helper does LESS THAN HALF the effort. [place] lifts, holds or supports trunk or limbs, but provides less than half the effort. 2-Substantial/Maximal Assistance-helper does MORE THAN HALF the effort. [place] lifts or holds trunk or limbs and provides more than half the effort. 9-Eeggrgajq-vydyti does ALL the effort. Patient does none of the effort to complete the activity. Or, the assistance of 2 or more helpers is required for the patient to complete the activity. If activity was not attempted, code reason: 7-Patient Refused. 9-Not Applicable-not attempted and the patient did not perform the activity before the current illness, exacerbation or injury. 10-Not Attempted due to Environmental Limitations-(lack of equipment, weather restraints, etc.). 88-Not Attempted due to Medical Conditions or Safety Concerns. Oral Hygiene (QC): 7 Bathing Location: L Arm, R Arm, L Upper Leg, R Upper Leg, L Lower Leg (including foot), R Lower Leg (including foot), Chest, Abdomen, Buttocks, Perineal Area Shower/Bathe Self (QC): 4 (CGA in stance.) Upper Body Dressing (QC): 5 (s/u (no bra)) Lower Body Dressing (QC): 4 (SBA in stance/ EOB) On/Off Footwear: 4 (SBA EOB) Toileting Hygiene (QC): 7 Toilet Transfer (QC): 7 Other Treatment Pt seen from [id number], daughter states pt was up throughout night and has not slept, experienced nausea this morning. Pt and daughter educated on ARU standards and pt given ~15 minutes for rest and then return at [id number] where nursing present. Pt's daughter stating pt has not been feeling well and concern ed of pt's well being. Cardiology nursing present; based on nursings' statements/ hesitancy, pt given more time as pt continues to be nauseous. Pt educated on plan to return around 10. Pt seen at 10-1050, pt agreeable to sponge bath with hesitancy. Pt bed mob with encouragement/ SBA. Pt completes bath with increased time and s/u, CGA in stance. Pt dresses. Pt denies brushing teeth or continuation of therapy session stating she is going to bed. Pt educated on additional time to be seen this afternoon and PT will continue to check in/see pt. Pt acknowledges and lays in bed. All needs met, call light in reach. Education OT Patient Education: Correct positioning, Instructions to caregiver, Modified ADL techniques, Safety issues Teaching Recipient: Patient Teaching Methods: Demonstration, Discussion Response to Teaching: Verbalize Understanding, Return Demonstration, Reinforcement Needed OT Short Term Goals Short Term Goals Upper body dressin (met) Putting on/taking off footwear: 6 OT Pulmonologist Goals Pulmonologist Goals Time Frame: Jan 11, 2020 Eating (QC): 6 Oral Hygiene (QC): 6 Toileting Hygiene (QC): 6 Shower/Bathe Self (QC): 6 Upper Body Dressing (QC): 6 Lower Body Dressing (QC): 6 On/Off Footwear (QC): 6 Additional Goals: 1-Demonstrate ADL Tasks, 2-Verbalize Understanding, 3- ImproveStrength/Monica 1=Demonstrate adherence to instructed precautions during ADL tasks. 2=Patient will verbalize/demonstrate understanding of assistive devices/modifications for ADL. 3=Patient will improve strength/tolerance for activity to enable patient to perform ADL's. OT Education/Plan Problem List/Assessment Assessment: Decreased Activ Tolerance, Decreased UE Strength, Impaired Funct Balance, Impaired I ADL's, Impaired Self-Care Skills Discharge Recommendations Plan/Recommendations: Continue POC Treatment Plan/Plan of Care Treatment,Training & Education: Yes Patient would benefit from OT for education, treatment and training to promote independence in ADL's, mobility, safety and/or upper extremity function for ADL's. Plan of Care: ADL Retraining, Caregiver Training, Functional Mobility Treatment Duration: Jan 11, 2020 Frequency: At least 5 of 7 days/Wk (IRF) Estimated Hrs Per Day: 1.5 hours per day Agreement: Yes Rehab Potential: Good Time/GCodes Start Time: 08:00 (0815, 1000) Stop Time: 08:05 (0820, 1050) Total Time Billed (hr/min): 60 Billed Treatment Time 1, FA (10) 1, ADL 3 (50) RUDDY LEON OTR Jan 01, 2020 11:02
--- NOTE | 2020-01-01 12:03 | Occupational Ther Daily Note ---
OT Current Status-Daily Note Subjective Pt seen in bed, denies pain. Pt states her stomach is less nauseous, agreeable to OT tx session. Daughters present through session. Mental Status/Objective Attachments: Oxygen ADL-Treatment Therapy Code Descriptions/Definitions Functional [place] Measure: 0=Not Assessed/NA 4=Minimal Assistance 1=Total Assistance 5=Supervision or Setup 2=Maximal Assistance 6=Modified [place] 3=Moderate Assistance 7=Complete IndependenceSCALE: Activities may be completed with or without assistive devices. 2-Ibizosvswk-sfolaem completes the activity by him/herself with no assistance from a helper. 5-Set-up or Clean-up Assistance-helper sets up or cleans up; patient completes activity. [place] assists only prior to or following the activity. 4-Supervision or Touching Assistance-helper provides verbal cues and/or touching/steadying and/or contact guard assistance as patient completes activity. Assistance may be provided throughout the activity or intermittently. 3-Partial/Moderate Assistance-helper does LESS THAN HALF the effort. [place] lifts, holds or supports trunk or limbs, but provides less than half the effort. 2-Substantial/Maximal Assistance-helper does MORE THAN HALF the effort. [place] lifts or holds trunk or limbs and provides more than half the effort. 0-Kadihudok-iqsrei does ALL the effort. Patient does none of the effort to complete the activity. Or, the assistance of 2 or more helpers is required for the patient to complete the activity. If activity was not attempted, code reason: 7-Patient Refused. 9-Not Applicable-not attempted and the patient did not perform the activity before the current illness, exacerbation or injury. 10-Not Attempted due to Environmental Limitations-(lack of equipment, weather restraints, etc.). 88-Not Attempted due to Medical Conditions or Safety Concerns. Eating (QC): 7 (Pt's food sat in front of patient end of session, pt denies food with encouragement. States she is nauseous with thought of food.) Other Treatment Pt completes bed mob with SBA, sit to stand to rolling walker with SBA. Pt denies using bathroom at the moment. Pt transfers to recliner chair. Pt educated on benefits of UE exercise and importance of AROM. Pt educated on theraband HEP and completes with modeling (10 reps bilaterally: shoulder flexion, ext rotation, back flies (modified without theraband to complete within tolerable range), triceps and biceps). Pt completes, states knowledge to be able to complete later in day. Pt educated to complete 2x per day at home, 1x a day while here. Pt agrees. Lunch trays brought in, pt s/u for food but denies eating. pt educated on importance of nutrition while healing, pt continues to deny and denies other food offered to pt. Pt left in recliner chair with daughters present, call light in reach, all needs met. Education OT Patient Education: Correct positioning, Exercise program, Home exercise program, Instructions to caregiver, Rehab process Teaching Recipient: Patient, Family Teaching Methods: Demonstration, Handout, Discussion Response to Teaching: Verbalize Understanding, Return Demonstration, Reinforcement Needed OT Short Term Goals Short Term Goals Upper body dressin (met) Putting on/taking off footwear: 6 OT Nurse Informatics Educator Goals Nurse Informatics Educator Goals Time Frame: Jan 11, 2020 Eating (QC): 6 Oral Hygiene (QC): 6 Toileting Hygiene (QC): 6 Shower/Bathe Self (QC): 6 Upper Body Dressing (QC): 6 Lower Body Dressing (QC): 6 On/Off Footwear (QC): 6 Additional Goals: 1-Demonstrate ADL Tasks, 2-Verbalize Understanding, 3- ImproveStrength/Monica 1=Demonstrate adherence to instructed precautions during ADL tasks. 2=Patient will verbalize/demonstrate understanding of assistive devices/modifications for ADL. 3=Patient will improve strength/tolerance for activity to enable patient to perform ADL's. OT Education/Plan Problem List/Assessment Assessment: Decreased Activ Tolerance, Decreased UE Strength, Impaired Funct Balance, Impaired I ADL's, Impaired Self-Care Skills, Restricted Funct UE ROM Discharge Recommendations Plan/Recommendations: Continue POC Treatment Plan/Plan of Care Treatment,Training & Education: Yes Patient would benefit from OT for education, treatment and training to promote independence in ADL's, mobility, safety and/or upper extremity function for ADL's. Plan of Care: ADL Retraining, Caregiver Training, Functional Mobility Treatment Duration: Jan 11, 2020 Frequency: At least 5 of 7 days/Wk (IRF) Estimated Hrs Per Day: 1.5 hours per day Agreement: Yes Rehab Potential: Good Time/GCodes Start Time: 11:35 Stop Time: 12:05 Total Time Billed (hr/min): 30 Billed Treatment Time 1, EX 2 (30) RUDDY LEON OTR Jan 01, 2020 12:03
--- NOTE | 2020-01-01 12:09 | PM&R Progress Note ---
Subjective HPI/CC On Admission Date Seen by Provider: Jan 01, 2020 Time Seen by Provider: 09:15 Subjective/Events-last exam A little bit of nausea and vomiting today IV Zofran given Hgb 8.5 Creatinine 1.54 Overall feels pretty weak from nausea but otherwise proceeding on with progress IVF ordered later in afternoon due to poor intake today Checked meds and labs Conferred with RN Reviewed therapy notes Review of Systems General: Fatigue Objective Exam Vital Signs Vital Signs Date Time Temp Pulse Resp B/P (MAP) Pulse Ox O2 Delivery O2 Flow Rate FiO2 01/01/20 20:30 Nasal Cannula 1.00 01/01/20 18:16 37.3 78 18 138/78 (98) 96 12/29/19 22:29 28 Capillary Refill : Less Than 3 Seconds General Appearance: No Apparent Distress, WD/WN, Chronically ill HEENT: PERRL/EOMI, Pharynx Normal, Moist Mucous Membranes Neck: Full Range of Motion, Normal Inspection, Non Tender, Supple Respiratory: Chest Non Tender, Lungs Clear, No Accessory Muscle Use, No Respiratory Distress, Decreased Breath Sounds Cardiovascular: Regular Rate, Rhythm, No Edema, Normal Peripheral Pulses Gastrointestinal: Normal Bowel Sounds, No Organomegaly, No Pulsatile Mass, Non Tender, Soft Back: Normal Inspection, No CVA Tenderness, No Vertebral Tenderness Extremity: Normal Capillary Refill, Normal Inspection, Normal Range of Motion, Non Tender, No Calf Tenderness, No Pedal Edema Neurologic/Psychiatric: Alert, Oriented x3, No Motor/Sensory Deficits, Normal Mood/Affect, 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 FIM Transfers Therapy Code Descriptions/Definitions Functional [place] Measure: 0=Not Assessed/NA 4=Minimal Assistance 1=Total Assistance 5=Supervision or Setup 2=Maximal Assistance 6=Modified [place] 3=Moderate Assistance 7=Complete IndependenceSCALE: Activities may be completed with or without assistive devices. 4-Mkcqmmonju-qeuiueu completes the activity by him/herself with no assistance from a helper. 5-Set-up or Clean-up Assistance-helper sets up or cleans up; patient completes activity. [place] assists only prior to or following the activity. 4-Supervision or Touching Assistance-helper provides verbal cues and/or touching/steadying and/or contact guard assistance as patient completes activity. Assistance may be provided throughout the activity or intermittently. 3-Partial/Moderate Assistance-helper does LESS THAN HALF the effort. [place] lifts, holds or supports trunk or limbs, but provides less than half the effort. 2-Substantial/Maximal Assistance-helper does MORE THAN HALF the effort. [place] lifts or holds trunk or limbs and provides more than half the effort. 0-Jvxiwuzdw-ygnzym does ALL the effort. Patient does none of the effort to complete the activity. Or, the assistance of 2 or more helpers is required for the patient to complete the activity. If activity was not attempted, code reason: 7-Patient Refused. 9-Not Applicable-not attempted and the patient did not perform the activity before the current illness, exacerbation or injury. 10-Not Attempted due to Environmental Limitations-(lack of equipment, weather restraints, etc.). 88-Not Attempted due to Medical Conditions or Safety Concerns. Roll Left to Right (QC): 6 Sit to Lying (QC): 6 Sit to Stand (QC): 5 Chair/Riu-yp-Eckpo Xfer(QC): 6 Car Transfer (QC): 88 Gait Training Does the Patient Walk?: Yes Distance: 150' Walk 10 feet (QC): 5 Walk 50 ft with 2 Turns(QC): 5 Walk 150 ft (QC): 5 Walking 10ft/uneven surface-QC: 88 Gait Persons Needed: 1 Gait Assistive Device: FWW Wheelchair Training Does the Pt Use a Wheelchair?: No Stair Training 1 Step (curb) (QC): 88 4 Steps (QC): 88 12 Steps (QC): 88 Balance Picking up an Object (QC): 88 ADL-Treatment Eating (QC): 6 Oral Hygiene (QC): 7 Bathing Location: L Arm, R Arm, L Upper Leg, R Upper Leg, L Lower Leg (including foot), R Lower Leg (including foot), Chest, Abdomen, Buttocks, Perineal Area Shower/Bathe Self (QC): 4 (CGA in stance.) Upper Body Dressing (QC): 5 (s/u (no bra)) Lower Body Dressing (QC): 4 (SBA in stance/ EOB) On/Off Footwear (QC): 4 (SBA EOB) Toileting Hygiene (QC): 7 Toilet Transfer (QC): 7 Assessment/Plan Assessment and Plan Assess & Plan/Chief Complaint Assessment: s/p sepsis Bacteremia E coli still on Rocephin s/p Tremors/rigors of uncertain source normal CT scan and labs and does not appear to be organically based but checking to assure that indeed is correct and seems to have resolved with Baclofen COPD CAD Esophageal spasms DJD of spine CRI s/p ARF HTN HLP Anemia s/p transfusions Plan: IV abx to complete today Gentle IVF today Baclofen has resolved the tremors IRF protocol (1) Debility (2) Chronic renal insufficiency Status: Chronic (3) Gastritis Status: Acute (4) Situational anxiety Status: Acute (5) Urinary tract infection Status: Acute (6) Chronic anemia Status: Chronic (7) COPD (chronic obstructive pulmonary disease) Status: Chronic (8) Gout Status: Chronic (9) CAD (coronary artery disease) (10) Dysphagia (11) Hyperlipidemia Status: Chronic (12) Neuropathy Status: Acute (13) Radiculopathy (14) History of coronary artery stent placement Status: Chronic TAHIR MARTINEZ DO Jan 01, 2020 12:09
[2020-01-01] MEDS: ACETAMINOPHEN 325 MG TABLET PO PRN (13:11)
--- NOTE | 2020-01-01 14:39 | Physical Therapy Daily Note ---
PT Daily Note-Current Subjective Pt. declined therapy in AM as she felt nauseous and weak and states she did not sleep all night. However at this time pt. states she is still tired but will try. Pain Location: No Pain Reported Mental Status Patient Orientation: Normal For Age pt. recalled all 5 selected memory words from last Fridays group session on memory Transfers SCALE: Activities may be completed with or without assistive devices. 1-Exicrutiai-jpkqbre completes the activity by him/herself with no assistance from a helper. 5-Set-up or Clean-up Assistance-helper sets up or cleans up; patient completes activity. [place] assists only prior to or following the activity. 4-Supervision or Touching Assistance-helper provides verbal cues and/or touching/steadying and/or contact guard assistance as patient completes activity. Assistance may be provided throughout the activity or intermittently. 3-Partial/Moderate Assistance-helper does LESS THAN HALF the effort. [place] lifts, holds or supports trunk or limbs, but provides less than half the effort. 2-Substantial/Maximal Assistance-helper does MORE THAN HALF the effort. [place] lifts or holds trunk or limbs and provides more than half the effort. 5-Sekgdduts-dbmjaz does ALL the effort. Patient does none of the effort to complete the activity. Or, the assistance of 2 or more helpers is required for the patient to complete the activity. If activity was not attempted, code reason: 7-Patient Refused. 9-Not Applicable-not attempted and the patient did not perform the activity before the current illness, exacerbation or injury. 10-Not Attempted due to Environmental Limitations-(lack of equipment, weather restraints, etc.). 88-Not Attempted due to Medical Conditions or Safety Concerns. Roll Left & Right (QC): 6 Sit to Lying (QC): 6 Lying to Sitting/Side of Bed(Q: 6 Sit to Stand (QC): 6 Chair/Iwk-dd-Shrox Xfer(QC): 5 Toilet Transfer (QC): 5 Weight Bearing Right Lower Extremity: Right Full Weight Bearing Left Lower Extremity: Left Full Weight Bearing Gait Training Does the Patient Walk?: Yes Walk 10 feet (QC): 5 Walk 50 ft with 2 Turns(QC): 5 Walk 150 ft (QC): 5 Gait Persons Needed: 1 Gait Assistive Device: FWW assist for O2 only. Exercises Supine Ex: Bridging, Ankle pumps, Quad Set, Rolling, Glut sets, Heel Slides, Short Arc Quads, Scooting, Straight leg raise, Hip abd/add Supine Reps: 20 Seated Therapy Exercises: Ankle pumps, Sit to stand, Long arc quads, Hip flexion, Hip abd/add Seated Reps: 20 seated on nustep for presses x 15 NuStep Minutes: 15 NuStep Workload: 3 Treatments toileted SBA, sit to stands , memory challenges etc., breathing exercises, up in recliner after Rx, family at side , requests ice cream Assessment Current Status: Good Progress PT Short Term Goals Short Term Goals Time Frame: Jan 04, 2020 Roll Left & Right: 4 Sit to lyin Lying to sitting on side of be: 4 Sit to stand: 4 Walk 150 feet: 4 PT Education Director Goals Mcfp Goals PT Education Director Goals Time Frame: Jan 18, 2020 Roll Left & Right (QC): 6 Sit to Lying (QC): 6 Lying-Sitting on Side/Bed(QC): 6 Sit to Stand (QC): 6 Chair/Wgp-rm-Wtxci Xfer(QC): 6 Toilet Transfer (QC): 6 Car Transfer (QC): 6 Does the Patient Walk: Yes Walk 10 feet (QC): 6 Walk 50ft with 2 Turns (QC): 6 Walk 150 ft (QC): 6 Walking 10ft on Uneven Surface: 5 1 Step (curb) (QC): 5 4 Steps (QC): 5 12 Steps (QC): 9 Picking up an Object (QC): 4 Does the Pt use WC or Scooter?: No PT Plan Treatment/Plan Treatment Plan: Continue Plan of Care Treatment Plan: Bed Mobility, Education, Functional Activity [place], Functional Strength, Group Therapy, Gait, Safety, Therapeutic Exercise, Transfers Treatment Duration: Jan 18, 2020 Frequency: At least 5 of 7 days/Wk (IRF) Estimated Hrs Per Day: 1.5 hours per day Patient and/or Family Agrees t: Yes Safety Risks/Education Patient Education: Gait Training, Transfer Techniques, Correct Positioning, Disease Process, Safety Issues Teaching Recipient: Patient Teaching Methods: Demonstration, Discussion Response to Teaching: Verbalize Understanding, Return Demonstration, Reinforcement Needed Time/GCodes Time In: 1300 Time Out: 1430 Total Billed Treatment Time: 90 Total Billed Treatment 1,EX40m,GT30m,FA20m MARIE LEACH JEWEL STRIPPER Jan 01, 2020 14:39
--- NOTE | 2020-01-01 15:23 | NUR ---
provided prayer and Communion.
[2020-01-01 16:00] VITALS: BP 177/72
[2020-01-01] MEDS: ENOXAPARIN 30 MG/0.3 ML (LOVENOX) SYR SC SCH (16:01)
--- NOTE | 2020-01-01 16:08 | Pulmonary Progress Note ---
Standard Progress Note Progress Notes Date Seen by Provider: Jan 01, 2020 Time Seen by Provider: 15:10 pt is sitting up with family and reports feeling improved; she states she has not had any episodes of shakes in several days, she is wearing oxygen and they are able to turn it down and she is now on .5L NC and tolerating; Assessment & Plan Sepsis with UTI -Influenza is negative Acute renal failure with hyperkalemia - improving Metabolic acidosis -Improving anemia -- -Monitor -Hold anticoagulation -had 1 unit transfused on 12/27 S/p recent fall -Fall precautions OMID -has home cpap copd/asthma -receiving tx hypoxemia -pt needs 6mw to see if still requires oxygen with exertion before discharge; will f/u in office in 2 - 3 wks SANAZ AWAD APRN Jan 01, 2020 16:08
[2020-01-01 18:16] VITALS: BP 138/78
[2020-01-01] MEDS ORDERED: NS IV 1000 ML 1,000 ML ONE (19:02)
[2020-01-01] MEDS: NS IV 1000 ML 1,000 ML IV SCH (19:12)
[2020-01-01] MEDS ORDERED: FAMOTIDINE 20 MG (PEPCID) TABLET PO SCH (21:00)
[2020-01-01] MEDS: cefTRIAXone FOR IV USE 1,000 MG in WATER (STERILE) FOR INJECTION 10 ML IV SCH (21:24)
[2020-01-01] MEDS: SIMvastatin 10 MG (ZOCOR) TAB PO SCH (21:38)
[2020-01-01] MEDS: FAMOTIDINE 20 MG (PEPCID) TABLET PO SCH (22:16)
[2020-01-01] MEDS: ACETAMINOPHEN 325 MG TABLET PO SCH (22:17)
[2020-01-01] MEDS: MONTELUKAST 10 MG (SINGULAIR) TAB PO SCH (22:17)
[2020-01-02 06:45] VITALS: BP 167/65
[2020-01-02] MEDS: SUCRALFATE 1 GM (CARAFATE) TAB PO SCH ×4 (06:47→21:38)
[2020-01-02] MEDS: CATHETER FLUSH 10 ML SYR IV SCH ×3 (06:47→21:56)
[2020-01-02] MEDS: NS IV 1000 ML 1,000 ML IV SCH (07:54)
[2020-01-02] MEDS: amLODIPine 5 MG (NORVASC) TAB PO SCH (07:54)
[2020-01-02] MEDS: amLODIPine 2.5MG (NORVASC) TAB PO SCH (07:55)
[2020-01-02] MEDS: LORATADINE (CLARITIN) 10 MG TAB PO SCH (07:55)
[2020-01-02] MEDS: LOSARTAN 50 MG (COZAAR) TAB PO SCH (07:55)
[2020-01-02] MEDS: ASPIRIN E.C. 81 MG (ECOTRIN) TAB PO SCH (07:55)
[2020-01-02] MEDS: BACLOFEN 10 MG (LIORESAL) TAB PO SCH ×3 (07:55→21:40)
[2020-01-02] MEDS: ACETAMINOPHEN 325 MG TABLET PO SCH ×3 (07:56→21:39)
[2020-01-02] MEDS: PANTOPRAZOLE 40 MG (PROTONIX) TAB PO SCH (07:56)
[2020-01-02] MEDS: polyethylene glycoL POWDER 17 GM (MIRALAX) PACK PO SCH ×2 (07:57→21:56)
[2020-01-02] MEDS: DOCUSATE SODIUM 100 MG (COLACE) CAP PO SCH ×2 (07:57→21:39)
[2020-01-02] MEDS: SENNA W/DOCUSATE (SENOKOT S) TABLET PO SCH ×2 (07:57→21:39)
[2020-01-02] MEDS: TRELEGY ELLIPTA IH SCH (08:00)
--- NOTE | 2020-01-02 08:10 | NUR ---
DR. HOLBROOK HERE TO SEE PATIENT. INFORMED OF NAUSEA AND INTERMITTENT CONFUSION.
[2020-01-02] MEDS: ONDANSETRON 4 MG/2 ML (SDV) Z0FRAN IV PRN (08:22)
--- NOTE | 2020-01-02 08:43 | Cardiology Progress Note ---
Subjective Date Seen by Provider: Jan 02, 2020 Time Seen by Provider: 08:10 Subjective/Events-last exam Patient sitting up in bed, family reports she was able to sleep last night, denies any chest pain or dyspnea. Review of Systems General: No Chills, No Night Sweats; Fatigue; No Malaise, No Appetite, No Other HEENT: No Head Aches, No Visual Changes, No Eye Pain, No Ear Pain, No Dysphasia, No Sinus Congestion, No Post Nasal Drip, No Sore Throat, No Other Pulmonary: No Dyspnea, No Cough, No Pleuritic Chest Pain, No Other Cardiovascular: No: Chest Pain, Palpitations, Orthopnea, Paroxysmal Noc. Dyspnea, Edema, Lt Headedness, Other Objective-Cardiology Exam Last Set of Vital Signs Vital Signs 12/29/19 01/02/20 01/02/20 01/02/20 22:29 06:45 09:55 09:59 Temp 37.2 Pulse 68 Resp 18 B/P (MAP) 167/65 (99) Pulse Ox 96 O2 Delivery Nasal Cannula O2 Flow Rate 1.00 FiO2 28 Capillary Refill : Less Than 3 Seconds I&O Intake and Output 01/02/20 00:00 Intake Total 750 ml Balance 750 ml Intake Oral 750 ml # Voids 7 General: Alert, Oriented X3, Cooperative, No Acute Distress HEENT: Atraumatic Neck: No JVD, No Thyromegaly Lungs: Clear to Auscultation, Normal Air Movement Heart: Regular Rate, Normal S1, Normal S2, No Murmurs Abdomen: Normal Bowel Sounds, Soft, No Tenderness, No Hepatosplenomegaly, No Masses Extremities: No Clubbing, No Cyanosis, No Edema, Normal Pulses, No Tenderness/Swelling Skin: No Rashes, No Breakdown, No Significant Lesion Neuro: Normal Tone, Sensation Intact Psych/Mental Status: Mental Status NL, Mood NL A/P-Cardiology Admission Diagnosis Sepsis Anemia Coronary artery disease Hypertension Assessment/Plan Sepsis with UTI, improving, receiving antibiotic and managed by primary care team. Starting on physical therapy. Anemia, cold agglutinin disease, received blood transfusion with warm blood, H/H stable, continue to monitor. Chest pain, generalized body ache, history of jaoq-nu-kzcchjul coronary artery disease, no further episodes of chest pain were reported. Continue to monitor Dyspnea, history of bronchial asthma, history of C Pap use Coronary artery disease, history of stent to the LAD, cardiac catheterization March 2013 showing patent stents in the proximal LAD with mild in-stent restenosis,mild to moderate disease in the mid LAD and mid circumflex artery, had history of abnormal stress test in the past and has been refusing cardiac catheterization. History of gastroesophageal reflux disease, esophagitis, mild dysphagia, esophageal spasm, managed by primary care team Hypertension, monitor blood pressure History of hyperlipidemia, monitor lipids Moderate carotid stenosis tortuous carotids by ultrasound, continue to monitor Acute on chronic renal failure, improving slowly, continue to monitor. Back pain, currently on Baclofen TID Patient was seen and evaluated with Gertrude, examination performed, management plan was discussed, agree with the current scribed note, I made few changes to the note using Italic font Patient was somewhat confused earlier in the morning, during my evaluation she was feeling better and she was oriented Still having anxiety and some shortness of breath Overall improving. Continue to monitor Clinical Quality Measures DVT/VTE Risk/Contraindication: Risk Factor Score Per Nursin RFS Level Per Nursing on Admit: 4+=Very High GERTRUDE LEWIS Jan 02, 2020 8:43 am ELO HOLBROOK MD Jan 02, 2020 11:37 am
--- NOTE | 2020-01-02 08:58 | PM&R Progress Note ---
Subjective HPI/CC On Admission Date Seen by Provider: Jan 02, 2020 Time Seen by Provider: 09:00 Subjective/Events-last exam Multiple family members remain in her room 14/06. Did not urinate last night and had some retention so consulted Dr. Acosta. Updated the family to allow her to participate in therapy for the day and allow her to regain independence and allow themselves to rest from care-taking duties. Had another tremor episode and Dr Nunez evaluated it and CT brain negative and labs normal and vitals normal Checked meds and labs Conferred with RN Reviewed therapy notes Review of Systems General: Fatigue Neurological: Other (tremors) Objective Exam Vital Signs Vital Signs Date Time Temp Pulse Resp B/P (MAP) Pulse Ox O2 Delivery O2 Flow Rate FiO2 01/02/20 18:35 96 Nasal Cannula 0.50 01/02/20 18:29 37.4 73 16 133/60 (84) 12/29/19 22:29 28 Capillary Refill : Less Than 3 Seconds General Appearance: No Apparent Distress, WD/WN, Chronically ill HEENT: PERRL/EOMI, Pharynx Normal, Moist Mucous Membranes Neck: Full Range of Motion, Normal Inspection, Non Tender, Supple Respiratory: Chest Non Tender, Lungs Clear, No Accessory Muscle Use, No Respiratory Distress, Decreased Breath Sounds Cardiovascular: Regular Rate, Rhythm, No Edema, Normal Peripheral Pulses Gastrointestinal: Normal Bowel Sounds, No Organomegaly, No Pulsatile Mass, Non Tender, Soft Back: Normal Inspection, No CVA Tenderness, No Vertebral Tenderness Extremity: Normal Capillary Refill, Normal Inspection, Normal Range of Motion, Non Tender, No Calf Tenderness, No Pedal Edema Neurologic/Psychiatric: Alert, Oriented x3, No Motor/Sensory Deficits, Normal Mood/Affect, 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 FIM Transfers Therapy Code Descriptions/Definitions Functional [place] Measure: 0=Not Assessed/NA 4=Minimal Assistance 1=Total Assistance 5=Supervision or Setup 2=Maximal Assistance 6=Modified [place] 3=Moderate Assistance 7=Complete IndependenceSCALE: Activities may be completed with or without assistive devices. 4-Jrlqvcmlpq-bngjpnn completes the activity by him/herself with no assistance from a helper. 5-Set-up or Clean-up Assistance-helper sets up or cleans up; patient completes activity. [place] assists only prior to or following the activity. 4-Supervision or Touching Assistance-helper provides verbal cues and/or touching/steadying and/or contact guard assistance as patient completes activity. Assistance may be provided throughout the activity or intermittently. 3-Partial/Moderate Assistance-helper does LESS THAN HALF the effort. [place] lifts, holds or supports trunk or limbs, but provides less than half the effort. 2-Substantial/Maximal Assistance-helper does MORE THAN HALF the effort. [place] lifts or holds trunk or limbs and provides more than half the effort. 7-Agiucbcvv-dvvbxi does ALL the effort. Patient does none of the effort to co mplete the activity. Or, the assistance of 2 or more helpers is required for the patient to complete the activity. If activity was not attempted, code reason: 7-Patient Refused. 9-Not Applicable-not attempted and the patient did not perform the activity before the current illness, exacerbation or injury. 10-Not Attempted due to Environmental Limitations-(lack of equipment, weather restraints, etc.). 88-Not Attempted due to Medical Conditions or Safety Concerns. Roll Left to Right (QC): 6 Sit to Lying (QC): 6 Sit to Stand (QC): 6 Chair/Bup-rw-Dlnak Xfer(QC): 5 Car Transfer (QC): 88 Gait Training Does the Patient Walk?: Yes Distance: 150' Walk 10 feet (QC): 5 Walk 50 ft with 2 Turns(QC): 5 Walk 150 ft (QC): 5 Walking 10ft/uneven surface-QC: 88 Gait Persons Needed: 1 Gait Assistive Device: FWW Wheelchair Training Does the Pt Use a Wheelchair?: No Stair Training 1 Step (curb) (QC): 88 4 Steps (QC): 88 12 Steps (QC): 88 Balance Picking up an Object (QC): 88 ADL-Treatment Eating (QC): 7 (Pt's food sat in front of patient end of session, pt denies food with encouragement. States she is nauseous with thought of food.) Oral Hygiene (QC): 7 Bathing Location: L Arm, R Arm, L Upper Leg, R Upper Leg, L Lower Leg (including foot), R Lower Leg (including foot), Chest, Abdomen, Buttocks, Perineal Area Shower/Bathe Self (QC): 4 (CGA in stance.) Upper Body Dressing (QC): 5 (s/u (no bra)) Lower Body Dressing (QC): 4 (SBA in stance/ EOB) On/Off Footwear (QC): 4 (SBA EOB) Toileting Hygiene (QC): 7 Toilet Transfer (QC): 7 Assessment/Plan Assessment and Plan Assess & Plan/Chief Complaint Assessment: s/p sepsis Bacteremia E coli still on Rocephin s/p Tremors/rigors of uncertain source normal CT scan and labs and does not appear to be organically based but checking to assure that indeed is correct and seems to have resolved with Baclofen had another episode today and Dr Nunez witnessed and CT brain and labs ok COPD CAD Esophageal spasms DJD of spine CRI s/p ARF HTN HLP Anemia s/p transfusions Plan: IV abx to complete today Gentle IVF today Baclofen has resolved the tremors but had another recurrence today unsure of the source IRF protocol (1) Debility (2) Chronic renal insufficiency Status: Chronic (3) Gastritis Status: Acute (4) Situational anxiety Status: Acute (5) Urinary tract infection Status: Acute (6) Chronic anemia Status: Chronic (7) COPD (chronic obstructive pulmonary disease) Status: Chronic (8) Gout Status: Chronic (9) CAD (coronary artery disease) (10) Dysphagia (11) Hyperlipidemia Status: Chronic (12) Neuropathy Status: Acute (13) Radiculopathy (14) History of coronary artery stent placement Status: Chronic TAHIR MARTINEZ DO Jan 02, 2020 08:57
--- NOTE | 2020-01-02 09:09 | Physical Therapy Daily Note ---
PT Daily Note-Current Subjective Pt agreeable to PT session. Pain Numeric Pain Scale: 0-No Pain Appearance Pt in bed upon arrival, family present while pt eating ice cream. Family states pt has not been wanting to eat anything lately. At end of session, pt sitting up in recliner with call light, phone and bedside table within reach. Daughter present, Radiology present. Mental Status Patient Orientation: Person, Place, Time, Eyes Open, Situation, Normal For Age Attachments: Oxygen (1 L O2/NC), IV Although pt able to answer all question for orientation, pt having some difficulty throughout tx session following direction and safety awareness sitting into chairs with difficulty following instruction on getting to the chair. Noted difficulty with problem solving skills. Transfers SCALE: Activities may be completed with or without assistive devices. 3-Boyaaamfmp-skmugym completes the activity by him/herself with no assistance from a helper. 5-Set-up or Clean-up Assistance-helper sets up or cleans up; patient completes activity. [place] assists only prior to or following the activity. 4-Supervision or Touching Assistance-helper provides verbal cues and/or touching/steadying and/or contact guard assistance as patient completes activity. Assistance may be provided throughout the activity or intermittently. 3-Partial/Moderate Assistance-helper does LESS THAN HALF the effort. [place] lifts, holds or supports trunk or limbs, but provides less than half the effort. 2-Substantial/Maximal Assistance-helper does MORE THAN HALF the effort. [place] lifts or holds trunk or limbs and provides more than half the effort. 9-Rvkcjujtx-zfegvt does ALL the effort. Patient does none of the effort to complete the activity. Or, the assistance of 2 or more helpers is required for the patient to complete the activity. If activity was not attempted, code reason: 7-Patient Refused. 9-Not Applicable-not attempted and the patient did not perform the activity before the current illness, exacerbation or injury. 10-Not Attempted due to Environmental Limitations-(lack of equipment, weather restraints, etc.). 88-Not Attempted due to Medical Conditions or Safety Concerns. Lying to Sitting/Side of Bed(Q: 4 Sit to Stand (QC): 4 Weight Bearing Right Lower Extremity: Right Full Weight Bearing Left Lower Extremity: Left Full Weight Bearing Gait Training Does the Patient Walk?: Yes Distance: 150 x2 Walk 10 feet (QC): 4 Walk 50 ft with 2 Turns(QC): 4 Walk 150 ft (QC): 4 Gait Persons Needed: 1 Gait Assistive Device: FWW slow pace, requiring inst for direction several times during gait distances, no LOB Exercises Seated Therapy Exercises: Ankle pumps (20), Sit to stand (2 x10), Long arc quads (20), Hip flexion (20), Hip abd/add (20) Standing: Hip Abduction, Heel/toe raises, 3 way Ex=Flex, Abd, Ext, Marching, Mini squats, Sit to Stand Standing Reps: 20 NuStep Minutes: 15 NuStep Workload: 4 (LE's only) Treatments bed mobility, education, safety, redirection, transfers, gait, strength, balance, activity tolerance, functional mobility Assessment Current Status: Good Progress Although pt able to answer all question for orientation, pt having some difficulty throughout tx session following direction and safety awareness sitting into chairs with difficulty following instruction on getting to the chair. Noted difficulty with problem solving skills. fair to good activity tolerance with exercises performed PT Short Term Goals Short Term Goals Time Frame: Jan 04, 2020 Roll Left & Right: 4 Sit to lyin Lying to sitting on side of be: 4 Sit to stand: 4 Walk 150 feet: 4 PT Alf Goals Gelatin Plant Supervisor Goals PT Alf Goals Time Frame: Jan 18, 2020 Roll Left & Right (QC): 6 Sit to Lying (QC): 6 Lying-Sitting on Side/Bed(QC): 6 Sit to Stand (QC): 6 Chair/Nbr-tz-Nshbp Xfer(QC): 6 Toilet Transfer (QC): 6 Car Transfer (QC): 6 Does the Patient Walk: Yes Walk 10 feet (QC): 6 Walk 50ft with 2 Turns (QC): 6 Walk 150 ft (QC): 6 Walking 10ft on Uneven Surface: 5 1 Step (curb) (QC): 5 4 Steps (QC): 5 12 Steps (QC): 9 Picking up an Object (QC): 4 Does the Pt use WC or Scooter?: No PT Plan Treatment/Plan Treatment Plan: Continue Plan of Care Treatment Plan: Bed Mobility, Education, Functional Activity Monica, Functional Strength, Group Therapy, Gait, Safety, Therapeutic Exercise, Transfers Treatment Duration: Jan 18, 2020 Frequency: At least 5 of 7 days/Wk (IRF) Estimated Hrs Per Day: 1.5 hours per day Patient and/or Family Agrees t: Yes Safety Risks/Education Patient Education: Gait Training, Transfer Techniques, Safety Issues Teaching Recipient: Patient Teaching Methods: Demonstration, Discussion Response to Teaching: Verbalize Understanding, Return Demonstration, Reinforcement Needed Time/GCodes Time In: 900 Time Out: 1000 Total Billed Treatment Time: 60 Total Billed Treatment 1 visit, GT x10 min, EX x40min, FA x10min OSCAR DAVE PTA Jan 02, 2020 09:09
--- NOTE | 2020-01-02 09:51 | NUR ---
VOIDED 200MLS. POST VOID BLADDER SCAN DONE AND SHOWING 449MLS. DR. MARTINEZ NOTIFIED WITH ORDERS TO CONSULT DR. SHORT. DR. SHORT TO THE FLOOR AND NOTIFIED OF CONSULT.
--- NOTE | 2020-01-02 09:52 | NUR ---
DR. MARTINEZ NOTIFIED OF NAUSEA (ZOFRAN GIVEN THIS AM) AND INTERMITTENT CONFUSION.
[2020-01-02] MEDS: RT-ALBUTEROL SULF 2.5 MG/3 ML PRE-MIX VIAL INH SCH ×2 (09:55→18:35)
--- NOTE | 2020-01-02 10:09 | NUR ---
IVF SALINE LOCKED PER ORDERS.
--- NOTE | 2020-01-02 11:29 | Occupational Ther Daily Note ---
OT Current Status-Daily Note Subjective Pt seen in recliner chair, daughter present. Daughter states pt is having difficulty urinating, but slept through night. Pt alert/ oriented but slightly confused this morning while completing ADLs. Mental Status/Objective Patient Orientation: Person, Place, Situation Attachments: Oxygen (1L) ADL-Treatment Therapy Code Descriptions/Definitions Functional [place] Measure: 0=Not Assessed/NA 4=Minimal Assistance 1=Total Assistance 5=Supervision or Setup 2=Maximal Assistance 6=Modified [place] 3=Moderate Assistance 7=Complete IndependenceSCALE: Activities may be completed with or without assistive devices. 1-Axrucytxct-mefeoki completes the activity by him/herself with no assistance from a helper. 5-Set-up or Clean-up Assistance-helper sets up or cleans up; patient completes activity. [place] assists only prior to or following the activity. 4-Supervision or Touching Assistance-helper provides verbal cues and/or touching/steadying and/or contact guard assistance as patient completes activity. Assistance may be provided throughout the activity or intermittently. 3-Partial/Moderate Assistance-helper does LESS THAN HALF the effort. [place] lifts, holds or supports trunk or limbs, but provides less than half the effort. 2-Substantial/Maximal Assistance-helper does MORE THAN HALF the effort. [place] lifts or holds trunk or limbs and provides more than half the effort. 7-Myxezrhzi-rfljmh does ALL the effort. Patient does none of the effort to complete the activity. Or, the assistance of 2 or more helpers is required for the patient to complete the activity. If activity was not attempted, code reason: 7-Patient Refused. 9-Not Applicable-not attempted and the patient did not perform the activity before the current illness, exacerbation or injury. 10-Not Attempted due to Environmental Limitations-(lack of equipment, weather restraints, etc.). 88-Not Attempted due to Medical Conditions or Safety Concerns. Eating (QC): 6 (pt takes drink from hand and brings to mouth/ drinks.) Oral Hygiene (QC): 4 (SBA at sink) Shower/Bathe Self (QC): 7 Upper Body Dressing (QC): 3 (min A physically to get over head to doffmod cues for direction/ taking shirt off. Pt attempts to doff, then begins donning (completes this action 3x with cues to doff). ) Lower Body Dressing (QC): 3 (min A for directionality/ SBA in stance) Toileting Hygiene (QC): 4 (SBA in stance, complete awa and bottom hygiene. ) Other Treatment Pt's daughter leaves during session. Pt completes LB dressing/ awa and bottom hygiene. Pt agrees to change underwear/ pants. Pt begins pulling underwear up, pt requires cues for pant/ underwear doffing. Pt doffs pants, requires cues to continue with underwear. Pt attempts to don pants with BLE in one leg hole, pt self corrects after ~15 sec of attempting. Pt continues this type of behavior during ADL session. Post UB dressing pt goes to therapy gym with cues for directionality. pt completes 10 min with one rest break of min resistance arm bike. pt then completes standing / dog food dough mixer tolerance exercise with resistance clothes pins. Pt able to complete doffing each pins, not able to don black/ red pins. Pt completes dog food dough mixer/ pinch strength activity with cues with hand sponge. Pt returns to room, denies bathroom, sits in recliner with food in front of her, daughter present, 02 on, chair alarm on, call light beside her, all needs met. Education OT Patient Education: Correct positioning, Exercise program, Home exercise program, Instructions to caregiver, Modified ADL techniques, Safety issues Teaching Recipient: Patient Teaching Methods: Demonstration, Discussion Response to Teaching: Verbalize Understanding, Return Demonstration OT Short Term Goals Short Term Goals Upper body dressin (met) Putting on/taking off footwear: 6 OT Jet Worker Goals Prison Goals Time Frame: Jan 11, 2020 Eating (QC): 6 Oral Hygiene (QC): 6 Toileting Hygiene (QC): 6 Shower/Bathe Self (QC): 6 Upper Body Dressing (QC): 6 Lower Body Dressing (QC): 6 On/Off Footwear (QC): 6 Additional Goals: 1-Demonstrate ADL Tasks, 2-Verbalize Understanding, 3- ImproveStrength/[place] 1=Demonstrate adherence to instructed precautions during ADL tasks. 2=Patient will verbalize/demonstrate understanding of assistive devices/modifications for ADL. 3=Patient will improve strength/tolerance for activity to enable patient to perform ADL's. OT Education/Plan Problem List/Assessment Assessment: Decreased Activ Tolerance, Decreased UE Strength, Impaired Cognition, Impaired Funct Balance, Impaired I ADL's, Impaired Self-Care Skills Discharge Recommendations Plan/Recommendations: Continue POC Treatment Plan/Plan of Care Treatment,Training & Education: Yes Patient would benefit from OT for education, treatment and training to promote independence in ADL's, mobility, safety and/or upper extremity function for ADL's. Plan of Care: ADL Retraining, Caregiver Training, Functional Mobility Treatment Duration: Jan 11, 2020 Frequency: At least 5 of 7 days/Wk (IRF) Estimated Hrs Per Day: 1.5 hours per day Agreement: Yes Rehab Potential: Good Time/GCodes Start Time: 10:30 Stop Time: 12:00 Total Time Billed (hr/min): 90 Billed Treatment Time 1, ADL 3 (45), EX 3 (45)= 90 RUDDY LEON OTR Jan 02, 2020 11:29
--- NOTE | 2020-01-02 11:36 | NUR ---
provided prayer and Communion.
--- NOTE | 2020-01-02 11:50 | CONSULTATION REPORT ---
DATE OF SERVICE: 01/02/2020 ATTENDING PHYSICIAN: Dr. Dejesus. SUMMARY: An 89-year-old white lady known to me socially for longtime, who has been admitted to rehab because of debility and was found to have a postvoid residual of 450 mL. The patient denies any trouble voiding at home. Denies incontinence, retention, is on no medication or previous surgery on the tract. The only surgery she had is cholecystectomy. IMPRESSION: Urinary retention. PLAN: We will start Flomax 0.4 mg daily. We will go ahead and straight cath for now. We will follow with daily bladder scan postvoid residual and straight cath if over 350 and will manage accordingly. We will reserve Urecholine if needed. The plan was fully explained to the patient and her daughter. It is mentioned that she denies any kind of prolapse. Job ID: [id number] DocumentID: [id number] Dictated Date: 01/02/2020 10:51:04 Erp Programmer Date: 01/02/2020 11:49:02 Dictated By: STANISLAV SHORT MD
--- NOTE | 2020-01-02 12:36 | NUR ---
UP TO THE BR TO VOID BUT MISSED THE HAT. POST VOID BLADDER SCAN DONE AND SHOWING 264. WILL CONTINUE TO MONITOR.
--- NOTE | 2020-01-02 13:05 | Occupational Ther Daily Note ---
OT Current Status-Daily Note Subjective Pt seen in recliner chair post-lunch. Pt denies bathroom, stating she just went. Agreeable to therapy gym/ strengthening Mental Status/Objective Patient Orientation: Normal For Age Attachments: Oxygen ADL-Treatment Therapy Code Descriptions/Definitions Functional [place] Measure: 0=Not Assessed/NA 4=Minimal Assistance 1=Total Assistance 5=Supervision or Setup 2=Maximal Assistance 6=Modified [place] 3=Moderate Assistance 7=Complete IndependenceSCALE: Activities may be completed with or without assistive devices. 9-Vlyrpmabql-krbmpwd completes the activity by him/herself with no assistance from a helper. 5-Set-up or Clean-up Assistance-helper sets up or cleans up; patient completes activity. [place] assists only prior to or following the activity. 4-Supervision or Touching Assistance-helper provides verbal cues and/or touching/steadying and/or contact guard assistance as patient completes activity. Assistance may be provided throughout the activity or intermittently. 3-Partial/Moderate Assistance-helper does LESS THAN HALF the effort. [place] lifts, holds or supports trunk or limbs, but provides less than half the effort. 2-Substantial/Maximal Assistance-helper does MORE THAN HALF the effort. [place] lifts or holds trunk or limbs and provides more than half the effort. 4-Yxhuycbgz-luznoj does ALL the effort. Patient does none of the effort to complete the activity. Or, the assistance of 2 or more helpers is required for the patient to complete the activity. If activity was not attempted, code reason: 7-Patient Refused. 9-Not Applicable-not attempted and the patient did not perform the activity before the current illness, exacerbation or injury. 10-Not Attempted due to Environmental Limitations-(lack of equipment, weather restraints, etc.). 88-Not Attempted due to Medical Conditions or Safety Concerns. Eating (QC): 6 Toileting Hygiene (QC): 4 (SUP in stance.) Toilet Transfer (QC): 4 (SBA, use of walker) Other Treatment Pt requires mod A to sit to stand from recliner chair. Ambulates with 2WW to therapy gym. Pt completes 20 reps of bicep curls, trunk twists with 3# weighted bar and 20 reps of shoulder flexion with 1# weighted bar. Pt takesn ~1 min break in between exercises. Pt educated on home exercises and use of items throughout the home for use of exercise. Pt demonstrates slight SOB, takes breaks and recovers quickly. pt returns to room without break, utilizes bathroom with SUP. Pt sits in recliner with all needs met, call light in reach, situated in chair for comfort. Education OT Patient Education: Correct positioning, Exercise program, Home exercise program Teaching Recipient: Patient Teaching Methods: Demonstration, Discussion Response to Teaching: Verbalize Understanding, Return Demonstration OT Short Term Goals Short Term Goals Upper body dressin (met) Putting on/taking off footwear: 6 OT Meteorology Instructor Goals Prison Goals Time Frame: Jan 11, 2020 Eating (QC): 6 Oral Hygiene (QC): 6 Toileting Hygiene (QC): 6 Shower/Bathe Self (QC): 6 Upper Body Dressing (QC): 6 Lower Body Dressing (QC): 6 On/Off Footwear (QC): 6 Additional Goals: 1-Demonstrate ADL Tasks, 2-Verbalize Understanding, 3- ImproveStrength/[place] 1=Demonstrate adherence to instructed precautions during ADL tasks. 2=Patient will verbalize/demonstrate understanding of assistive devices/modifications for ADL. 3=Patient will improve strength/tolerance for activity to enable patient to perform ADL's. OT Education/Plan Problem List/Assessment Assessment: Decreased Activ Tolerance, Decreased UE Strength, Dependent Transfers, Edema, Impaired I ADL's, Impaired Self-Care Skills Discharge Recommendations Plan/Recommendations: Continue POC Treatment Plan/Plan of Care Treatment,Training & Education: Yes Patient would benefit from OT for education, treatment and training to promote independence in ADL's, mobility, safety and/or upper extremity function for ADL's. Plan of Care: ADL Retraining, Caregiver Training, Functional Mobility Treatment Duration: Jan 11, 2020 Frequency: At least 5 of 7 days/Wk (IRF) Estimated Hrs Per Day: 1.5 hours per day Agreement: Yes Rehab Potential: Good Time/GCodes Start Time: 12:35 Stop Time: 13:05 Total Time Billed (hr/min): 30 Billed Treatment Time 1, EX (20), ADL (10)= 30 RUDDY LEON OTR Jan 02, 2020 13:05
[2020-01-02] MEDS: morphine (ROXINOL) 10 MG/0.5 ML oral conc 0.5 ML PO PRN (14:10)
[2020-01-02] MEDS: LORazepam INJ 2 MG/ML (ATIVAN) VIAL IVP PRN (14:30)
--- NOTE | 2020-01-02 14:35 | NUR ---
CALLED TO ROOM BY DAUGHTER. DAUGHTER STATES THAT PATIENT IS HAVING ONE OF HER "SHAKING ATTACKS". PATIENT VISIBLY SHAKING AND C/O PAIN ALL OVER. TEMP 38.2. DR. VILLALTA ON THE FLOOR AND IN ROOM TO ASSESS PATIENT. ORAL MORPHINE GIVEN PER DAUGHTER'S REQUEST AND IV ATIVAN GIVEN PER DR. VILLALTA'S REQUEST. PATIENT CONTINUES TO BE MILDLY CONFUSED. DAUGHTER STATES CONFUSION STARTED YESTERDAY AND IS WORSE TODAY. STRAIGHT CATH DONE AND URINE SENT DOWN PER DR. VILLALTA'S ORDERS. TEXT SENT TO DR. MARTINEZ TO UPDATE ON PATIENT'S CONDITION. Addendum: 01/02/20 at 1911 by TAVON JAEGER RN DR. VILLALTA WITNESSED SHAKING ATTACK.
--- NOTE | 2020-01-02 14:40 | Physical Therapy Progress Note ---
Therapy Progress Note 1400: Arrived in pt's room, pt's daughter and nurse present with pt supine in bed. Pt shaking and tremoring with report of 10/10 pain level. Per nursing, pt just received oral atavan and morphine. No treatment at this time. Will check back with pt in 15-30 minutes to see if medication taking effect and allowing for pt to participate in PT session. OSCAR DAVE MANAGER HOSPICE Jan 02, 2020 14:40
[2020-01-02 14:45] LABS: BILIRUBIN,URINE NEGATIVE (NEGATIVE); CLARITY,URINE CLEAR; COLOR,URINE YELLOW; GLUCOSE, URINE (UA) NEGATIVE (NEGATIVE); KETONES,URINE NEGATIVE (NEGATIVE); LEUKOCYTE ESTERASE ,URINE NEGATIVE (NEGATIVE); NITRITE,URINE NEGATIVE (NEGATIVE); PROTEIN,URINE 1+ (NEGATIVE)
--- NOTE | 2020-01-02 14:52 | Pulmonary Progress Note ---
Subjective Time Seen by a Provider: 14:50 Sepsis Event Evaluation Height, Weight, BMI Height: 5'0" Weight: 160lbs. 0.0oz. 72.466537gm; 35.05 BMI Method:Stated Exam Exam Vital Signs Date Time Temp Pulse Resp B/P (MAP) Pulse Ox O2 Delivery O2 Flow Rate FiO2 01/02/20 09:59 Nasal Cannula 1.00 01/02/20 09:55 96 Nasal Cannula 1.00 01/02/20 06:45 37.2 68 18 167/65 (99) 94 Nasal Cannula 1.00 01/01/20 20:30 Nasal Cannula 1.00 01/01/20 18:16 37.3 78 18 138/78 (98) 96 Nasal Cannula 1.00 01/01/20 16:00 37.0 69 16 177/72 (107) 96 Nasal Cannula 1.00 I & O 01/02/20 07:00 Intake Total 800 ml Balance 800 ml Height & Weight Height: 5'0" Weight: 160lbs. 0.0oz. 72.506787kh; 35.05 BMI Method:Stated General Appearance: No Apparent Distress, WD/WN, Chronically ill HEENT: PERRL/EOMI, Pharynx Normal, Moist Mucous Membranes Neck: Full Range of Motion, Normal Inspection, Non Tender, Supple Respiratory: Chest Non Tender, Lungs Clear, No Accessory Muscle Use, No Respiratory Distress, Decreased Breath Sounds Cardiovascular: Regular Rate, Rhythm, No Edema, Normal Peripheral Pulses Capillary Refill: Less Than 3 Seconds Extremity: Normal Capillary Refill, Normal Inspection, Normal Range of Motion, Non Tender, No Calf Tenderness, No Pedal Edema Neurologic/Psychiatric: Alert, Oriented x3, No Motor/Sensory Deficits, Normal Mood/Affect, roller printing supervisor II-XII Norm as Tested, Other (anxious) Skin: Normal Color, Warm/Dry Results Lab Laboratory Tests 01/01/20 05:35 Assessment/Plan Assessment/Plan Urinary retention -Dr. Acosta is following -Send UA for cultures LE muscle spasams -Pt is on baclofen -Will give 0.5mg of Ativan x 1 anemia -- -Monitor -Hold anticoagulation -had 1 unit transfused on 2/5 S/p recent fall -Fall precautions OMID -has home cpap copd/asthma -receiving tx hypoxemia -pt needs 6mw to see if still requires oxygen with exertion before discharge; will f/u in office in 2 - 3 wks KATHY VILLALTA DO Jan 02, 2020 14:52
[2020-01-02 15:00] LABS: BACTERIA,URINE LARGE /HPF; RBC,URINE 0-2 /HPF
--- NOTE | 2020-01-02 15:07 | Physical Therapy Daily Note ---
PT Daily Note-Current Subjective Pt agreeable to PT session. Pt's daughter voicing many concerns that a lot that is going on with pt is new within last 10-24 hours. Discussed with dtr to relay this to physician and to pt's nurse. Pt states feeling very tired. Pain Numeric Pain Scale: 0-No Pain Appearance Pt in bed with daughter present upon arrival, tremoring has ceased since last attempted visit. At end of visit, pt in bed, call light, phone and bedside table within reach, daughter present Mental Status Patient Orientation: Person, Place, Time, Eyes Open, Situation Attachments: Oxygen Transfers SCALE: Activities may be completed with or without assistive devices. 2-Mxlyatrgar-slmopie completes the activity by him/herself with no assistance from a helper. 5-Set-up or Clean-up Assistance-helper sets up or cleans up; patient completes activity. [place] assists only prior to or following the activity. 4-Supervision or Touching Assistance-helper provides verbal cues and/or touching/steadying and/or contact guard assistance as patient completes activity. Assistance may be provided throughout the activity or intermittently. 3-Partial/Moderate Assistance-helper does LESS THAN HALF the effort. [place] lifts, holds or supports trunk or limbs, but provides less than half the effort. 2-Substantial/Maximal Assistance-helper does MORE THAN HALF the effort. [place] lifts or holds trunk or limbs and provides more than half the effort. 4-Mkopzzyhj-ekspvf does ALL the effort. Patient does none of the effort to complete the activity. Or, the assistance of 2 or more helpers is required for the patient to complete the activity. If activity was not attempted, code reason: 7-Patient Refused. 9-Not Applicable-not attempted and the patient did not perform the activity before the current illness, exacerbation or injury. 10-Not Attempted due to Environmental Limitations-(lack of equipment, weather restraints, etc.). 88-Not Attempted due to Medical Conditions or Safety Concerns. Roll Left & Right (QC): 3 Weight Bearing Right Lower Extremity: Right Full Weight Bearing Left Lower Extremity: Left Full Weight Bearing Exercises Supine Ex: Bridging, Ankle pumps, Quad Set, Rolling (5 each L and R), Glut sets, Lower trunk rotation, Heel Slides, Knee to chest, Short Arc Quads, Straight leg raise, Hip abd/add Supine Reps: 20 ((+) hip IR/ER) Treatments education, safety, strength, bed mobility, activity tolerance Assessment Pt groggy and "fuzzy in the head" from ativan and morphine taken a little bit ago, therefor all activities performed in the bed this session. Requiring assist to keep on task. PT Short Term Goals Short Term Goals Time Frame: Jan 04, 2020 Roll Left & Right: 4 Sit to lyin Lying to sitting on side of be: 4 Sit to stand: 4 Walk 150 feet: 4 PT Marketing Campaign Analyst Goals Senior Living Goals PT Marketing Campaign Analyst Goals Time Frame: Jan 18, 2020 Roll Left & Right (QC): 6 Sit to Lying (QC): 6 Lying-Sitting on Side/Bed(QC): 6 Sit to Stand (QC): 6 Chair/Pej-uq-Mphum Xfer(QC): 6 Toilet Transfer (QC): 6 Car Transfer (QC): 6 Does the Patient Walk: Yes Walk 10 feet (QC): 6 Walk 50ft with 2 Turns (QC): 6 Walk 150 ft (QC): 6 Walking 10ft on Uneven Surface: 5 1 Step (curb) (QC): 5 4 Steps (QC): 5 12 Steps (QC): 9 Picking up an Object (QC): 4 Does the Pt use WC or Scooter?: No PT Plan Treatment/Plan Treatment Plan: Continue Plan of Care Treatment Plan: Bed Mobility, Education, Functional Activity Monica, Functional Strength, Group Therapy, Gait, Safety, Therapeutic Exercise, Transfers Treatment Duration: Jan 18, 2020 Frequency: At least 5 of 7 days/Wk (IRF) Estimated Hrs Per Day: 1.5 hours per day Patient and/or Family Agrees t: Yes Safety Risks/Education Patient Education: Correct Positioning, Safety Issues Teaching Recipient: Patient, Family Teaching Methods: Discussion Response to Teaching: Verbalize Understanding Time/GCodes Time In: 1450 Time Out: 1420 Total Billed Treatment Time: 30 Total Billed Treatment 1 visit, EX x30 min OSCAR DAVE DEBONE SUPERVISOR Jan 02, 2020 15:07
[2020-01-02 15:21] LABS: ALBUMIN 3.4 GM/DL (3.2-4.5); BILIRUBIN,TOTAL 0.4 MG/DL (0.1-1.0); CALCIUM 8.3 MG/DL (8.5-10.1); CREATININE SERUM 1.64 MG/DL (0.60-1.30); MAGNESIUM 2.2 MG/DL (1.6-2.4); PHOSPHORUS 2.4 MG/DL (2.3-4.7); POTASSIUM 4.4 MMOL/L (3.6-5.0); TOTAL PROTEIN 6.4 GM/DL (6.4-8.2)
--- NOTE | 2020-01-02 15:38 | NUR ---
DR. VILLALTA NOTIFIED OF UA RESULTS. Addendum: 01/02/20 at 1726 by TAVON JAEGER RN ALSO NOTIFIED THAT PATIENT REC'D LAST DOSE OF ROCEPHIN LAST NIGHT. STATES, "WILL WAIT FOR CULTURE RESULTS".
[2020-01-02] MEDS: ENOXAPARIN 30 MG/0.3 ML (LOVENOX) SYR SC SCH (15:42)
--- NOTE | 2020-01-02 15:57 | NUR ---
DR. VILLALTA NOTIFIED OF LAB RESULTS- CREATININE 1.64, BUN 24, BNP 317.2 AND THAT NO CBC WAS ORDERED. NO NEW ORDERS REC'D.
[2020-01-02] MEDS: TAMSULOSIN 0.4 MG (FLOMAX) CAP PO SCH (17:16)
--- NOTE | 2020-01-02 17:25 | NUR ---
DR. HINOJOSA HERE TO SEE PATIENT.
--- NOTE | 2020-01-02 18:19 | Progress Note ---
Standard Progress Note Progress Notes/Assess & Plan Date Seen by a Provider: Jan 02, 2020 Time Seen by a Provider: 18:14 Progress/Assessment & Plan 89-year-old female admitted to the hospital with Escherichia coli UTI and sepsis and completed IV antibiotics yesterday. Patient has previous history of cold agglutinin disease and was anemic at the time of admission and received packed red blood cell transfusion with blood warmer. Cold agglutinin titer elevated at 1:254 which is lesser than in 2015. Hemoglobin yesterday was 8.5 g/dL. Patient complained of chills earlier today with fever. Evaluation showed significant post void residual urine. She was straight cathed and UA showed 5-10 WBC and large amount of bacteria with cultures pending. Appetite is better and eating better. Patient's family complained that she was confused intermittently today. Physical exam stable. Repeat CBC and CMP tomorrow. Will follow patient. TAMIKA HINOJOSA Jan 02, 2020 18:19
[2020-01-02 18:29] VITALS: BP 133/60
[2020-01-02] MEDS: FAMOTIDINE 20 MG (PEPCID) TABLET PO SCH (21:38)
[2020-01-02] MEDS: SIMvastatin 10 MG (ZOCOR) TAB PO SCH (21:38)
[2020-01-02] MEDS: MONTELUKAST 10 MG (SINGULAIR) TAB PO SCH (21:38)
[2020-01-03] MEDS: morphine (ROXINOL) 10 MG/0.5 ML oral conc 0.5 ML PO PRN ×2 (02:26→22:56)
[2020-01-03] MEDS: LORazepam INJ 2 MG/ML (ATIVAN) VIAL IVP PRN (03:05)
[2020-01-03 05:40] VITALS: BP 163/65
[2020-01-03] MEDS: SUCRALFATE 1 GM (CARAFATE) TAB PO SCH ×4 (06:31→19:55)
[2020-01-03] MEDS: CATHETER FLUSH 10 ML SYR IV SCH ×4 (06:31→21:17)
[2020-01-03 06:38] LABS: BASOPHILS % (AUTO) 0 % (0-10); EOSINOPHILS # (AUTO) 0.3 10^3/uL (0.0-0.3); EOSINOPHILS % (AUTO) 4 % (0-10); HEMATOCRIT 25 % (35-52); HEMOGLOBIN 7.5 G/DL (11.5-16.0); LYMPHOCYTES % (AUTO) 29 % (12-44); MEAN CORPUSCULAR HEMOGLOBIN 27 PG (25-34); MEAN CORPUSCULAR HGB CONC 31 G/DL (32-36); MEAN CORPUSCULAR VOLUME 88 FL (80-99); MEAN PLATELET VOLUME 9.5 FL (7.4-10.4); MONOCYTES # (AUTO) 0.7 X 10^3 (0.0-1.0); MONOCYTES % (AUTO) 9 % (0-12); NEUTROPHILS # (AUTO) 4.1 X 10^3 (1.8-7.8); NEUTROPHILS % (AUTO) 58 % (42-75); PLATELET COUNT 416 10^3/uL (130-400); RED CELL DISTRIBUTION WIDTH 15.1 % (10.0-14.5); WHITE BLOOD COUNT 7.1 10^3/uL (4.3-11.0)
[2020-01-03] MEDS: RT-ALBUTEROL SULF 2.5 MG/3 ML PRE-MIX VIAL INH SCH ×2 (07:46→19:13)
--- NOTE | 2020-01-03 08:37 | Cardiology Progress Note ---
Subjective Date Seen by Provider: Jan 03, 2020 Time Seen by Provider: 08:36 Subjective/Events-last exam Patient up with PT, denies any chest pain or dyspnea. Denies nausea. Review of Systems General: No Chills, No Night Sweats, No Fatigue, No Malaise, No Appetite, No Other HEENT: No Head Aches, No Visual Changes, No Eye Pain, No Ear Pain, No Dysphasia, No Sinus Congestion, No Post Nasal Drip, No Sore Throat, No Other Pulmonary: No Dyspnea, No Cough, No Pleuritic Chest Pain, No Other Cardiovascular: No: Chest Pain, Palpitations, Orthopnea, Paroxysmal Noc. Dyspnea, Edema, Lt Headedness, Other Objective-Cardiology Exam Last Set of Vital Signs Vital Signs 12/29/19 01/03/20 01/03/20 01/03/20 01/03/20 22:29 05:40 07:47 09:35 14:03 Temp 37.1 Pulse 64 Resp 18 B/P (MAP) 164/73 (103) Pulse Ox 94 O2 Delivery High Flow N/C O2 Flow Rate 0.50 FiO2 28 Capillary Refill : Less Than 3 Seconds I&O Intake and Output 01/03/20 00:00 Intake Total 1750 ml Output Total 400 ml Balance 1350 ml Intake Oral 1750 ml Output Urine Total 400 ml Bladder Scan Volume Amount 264 ml # Voids 2 General: Alert, Oriented X3, Cooperative, No Acute Distress HEENT: Atraumatic Neck: No JVD, No Thyromegaly Lungs: Clear to Auscultation, Normal Air Movement Heart: Regular Rate, Normal S1, Normal S2, No Murmurs Abdomen: Normal Bowel Sounds, Soft, No Tenderness, No Hepatosplenomegaly, No Masses Extremities: No Clubbing, No Cyanosis, No Edema, Normal Pulses, No Tenderness/Swelling Skin: No Rashes, No Breakdown, No Significant Lesion Neuro: Normal Tone, Sensation Intact Psych/Mental Status: Mental Status NL, Mood NL Results Lab Laboratory Tests 01/03/20 06:25 A/P-Cardiology Admission Diagnosis Sepsis Anemia Coronary artery disease Hypertension Assessment/Plan Sepsis with UTI, receiving antibiotic and managed by primary care team. St busbying on physical therapy. Anemia, cold agglutinin disease, received blood transfusion with warm blood, continue to monitor H/H. Dr. Tucker following. Chest pain, generalized body ache, history of ekvy-lk-jakkcxya coronary artery disease, no further episodes of chest pain were reported. Continue to monitor Dyspnea, history of bronchial asthma, history of C Pap use Coronary artery disease, history of stent to the LAD, cardiac catheterization March 2013 showing patent stents in the proximal LAD with mild in-stent restenosis,mild to moderate disease in the mid LAD and mid circumflex artery, had history of abnormal stress test in the past and has been refusing cardiac catheterization. History of gastroesophageal reflux disease, esophagitis, mild dysphagia, esophageal spasm, managed by primary care team Hypertension, monitor blood pressure History of hyperlipidemia, monitor lipids Moderate carotid stenosis tortuous carotids by ultrasound, continue to monitor Acute on chronic renal failure, improving slowly, continue to monitor. Back pain, currently on Baclofen TID Patient was seen and evaluated with Gertrude, examination performed, management plan was discussed, agree with the current scribed note, I made few changes to the note using Italic font Clinically better, feeling better, oriented. No new complaint Continue on current medication and continue to monitor. Clinical Quality Measures DVT/VTE Risk/Contraindication: Risk Factor Score Per Nursin RFS Level Per Nursing on Admit: 4+=Very High GERTRUDE LEWIS Jan 03, 2020 8:37 am ELO HOLBROOK MD Jan 03, 2020 4:58 pm
[2020-01-03 09:35] VITALS: BP 164/73
[2020-01-03] MEDS: SENNA W/DOCUSATE (SENOKOT S) TABLET PO SCH ×2 (09:36→19:53)
[2020-01-03] MEDS: LORATADINE (CLARITIN) 10 MG TAB PO SCH (09:36)
[2020-01-03] MEDS: LOSARTAN 50 MG (COZAAR) TAB PO SCH (09:36)
[2020-01-03] MEDS: amLODIPine 5 MG (NORVASC) TAB PO SCH (09:36)
[2020-01-03] MEDS: DOCUSATE SODIUM 100 MG (COLACE) CAP PO SCH ×2 (09:36→19:54)
[2020-01-03] MEDS: PANTOPRAZOLE 40 MG (PROTONIX) TAB PO SCH (09:36)
[2020-01-03] MEDS: amLODIPine 2.5MG (NORVASC) TAB PO SCH (09:36)
[2020-01-03] MEDS: BACLOFEN 10 MG (LIORESAL) TAB PO SCH ×3 (09:37→19:54)
[2020-01-03] MEDS: ASPIRIN E.C. 81 MG (ECOTRIN) TAB PO SCH (09:37)
[2020-01-03] MEDS: polyethylene glycoL POWDER 17 GM (MIRALAX) PACK PO SCH ×2 (09:37→20:00)
[2020-01-03] MEDS: ACETAMINOPHEN 325 MG TABLET PO SCH ×3 (09:39→19:55)
[2020-01-03] MEDS: TRELEGY ELLIPTA IH SCH (09:45)
--- NOTE | 2020-01-03 09:54 | PM&R Progress Note ---
Subjective HPI/CC On Admission Date Seen by Provider: Jan 03, 2020 Time Seen by Provider: 09:30 Subjective/Events-last exam No other tremors or episodes noted today Flomax started by Dr. Mccollum Noted Enterococcus with only five white cells on urine so will start Amoxicillin Family very aggressive for very aggressive medical care Pt has had a significant decrease in her reserve and at [age] this very well c ould indicate a hospice candidate Checked meds and labs Conferred with RN Reviewed therapy notes Review of Systems General: Fatigue Objective Exam Vital Signs Vital Signs Date Time Temp Pulse Resp B/P (MAP) Pulse Ox O2 Delivery O2 Flow Rate FiO2 01/03/20 17:28 36.8 70 18 163/72 (102) 96 Room Air 01/03/20 09:00 1.00 12/29/19 22:29 28 Capillary Refill : Less Than 3 Seconds General Appearance: No Apparent Distress, WD/WN, Chronically ill HEENT: PERRL/EOMI, Pharynx Normal, Moist Mucous Membranes Neck: Full Range of Motion, Normal Inspection, Non Tender, Supple Respiratory: Chest Non Tender, Lungs Clear, No Accessory Muscle Use, No Respiratory Distress, Decreased Breath Sounds Cardiovascular: Regular Rate, Rhythm, No Edema, Normal Peripheral Pulses Gastrointestinal: Normal Bowel Sounds, No Organomegaly, No Pulsatile Mass, Non Tender, Soft Back: Normal Inspection, No CVA Tenderness, No Vertebral Tenderness Extremity: Normal Capillary Refill, Normal Inspection, Normal Range of Motion, Non Tender, No Calf Tenderness, No Pedal Edema Neurologic/Psychiatric: Alert, Oriented x3, No Motor/Sensory Deficits, Normal Mood/Affect, skein yard drier II-XII Norm as Tested, Other (anxious) Skin: Normal Color, Warm/Dry Results/Procedures Lab Laboratory Tests 01/03/20 06:25 Patient resulted labs reviewed. FIM Transfers Therapy Code Descriptions/Definitions Functional [place] Measure: 0=Not Assessed/NA 4=Minimal Assistance 1=Total Assistance 5=Supervision or Setup 2=Maximal Assistance 6=Modified [place] 3=Moderate Assistance 7=Complete IndependenceSCALE: Activities may be completed with or without assistive devices. 2-Xlcstzpuct-jkibzfb completes the activity by him/herself with no assistance from a helper. 5-Set-up or Clean-up Assistance-helper sets up or cleans up; patient completes activity. [place] assists only prior to or following the activity. 4-Supervision or Touching Assistance-helper provides verbal cues and/or touching/steadying and/or contact guard assistance as patient completes activity. Assistance may be provided throughout the activity or intermittently. 3-Partial/Moderate Assistance-helper does LESS THAN HALF the effort. [place] lifts, holds or supports trunk or limbs, but provides less than half the effort. 2-Substantial/Maximal Assistance-helper does MORE THAN HALF the effort. [place] lifts or holds trunk or limbs and provides more than half the effort. 0-Sqcmaausn-llztmp does ALL the effort. Patient does none of the effort to complete the activity. Or, the assistance of 2 or more helpers is required for the patient to complete the activity. If activity was not attempted, code reason: 7-Patient Refused. 9-Not Applicable-not attempted and the patient did not perform the activity before the current illness, exacerbation or injury. 10-Not Attempted due to Environmental Limitations-(lack of equipment, weather restraints, etc.). 88-Not Attempted due to Medical Conditions or Safety Concerns. Roll Left to Right (QC): 3 Sit to Lying (QC): 6 Sit to Stand (QC): 4 Chair/Gph-cr-Aybmo Xfer(QC): 5 Car Transfer (QC): 88 Gait Training Does the Patient Walk?: Yes Distance: 150 x2 Walk 10 feet (QC): 4 Walk 50 ft with 2 Turns(QC): 4 Walk 150 ft (QC): 4 Walking 10ft/uneven surface-QC: 88 Gait Persons Needed: 1 Gait Assistive Device: FWW Wheelchair Training Does the Pt Use a Wheelchair?: No Stair Training 1 Step (curb) (QC): 88 4 Steps (QC): 88 12 Steps (QC): 88 Balance Picking up an Object (QC): 88 ADL-Treatment Eating (QC): 6 Oral Hygiene (QC): 4 (SBA at sink) Bathing Location: L Arm, R Arm, L Upper Leg, R Upper Leg, L Lower Leg (including foot), R Lower Leg (including foot), Chest, Abdomen, Buttocks, Perineal Area Shower/Bathe Self (QC): 7 Upper Body Dressing (QC): 3 (min A physically to get over head to doffmod cues for direction/ taking shirt off. Pt attempts to doff, then begins donning (completes this action 3x with cues to doff). ) Lower Body Dressing (QC): 3 (min A for directionality/ SBA in stance) On/Off Footwear (QC): 4 (SBA EOB) Toileting Hygiene (QC): 4 (SUP in stance.) Toilet Transfer (QC): 4 (SBA, use of walker) Assessment/Plan Assessment and Plan Assess & Plan/Chief Complaint Assessment: s/p sepsis Bacteremia E coli still s/p Rocephin the repeat UA with Enterococcus so place on Amoxil s/p Tremors/rigors of uncertain source normal CT scan and labs and does not appear to be organically based but checking to assure that indeed is correct and seems to have resolved with Baclofen had another episode today and Dr Mayra garces and CT brain and labs ok COPD CAD Esophageal spasms DJD of spine CRI s/p ARF HTN HLP Anemia s/p transfusions Plan: DC tomorrow Amoxil Baclofen has resolved the tremors but had another recurrence today unsure of the source IRF protocol (1) Debility (2) Chronic renal insufficiency Status: Chronic (3) Gastritis Status: Acute (4) Situational anxiety Status: Acute (5) Urinary tract infection Status: Acute (6) Chronic anemia Status: Chronic (7) COPD (chronic obstructive pulmonary disease) Status: Chronic (8) Gout Status: Chronic (9) CAD (coronary artery disease) (10) Dysphagia (11) Hyperlipidemia Status: Chronic (12) Neuropathy Status: Acute (13) Radiculopathy (14) History of coronary artery stent placement Status: Chronic TAHIR MARITNEZ DO Jan 03, 2020 09:54
--- NOTE | 2020-01-03 10:04 | Physical Therapy Daily Note ---
PT Daily Note-Current Subjective Pt sitting in recliner visiting with daughters upon arrival. Pt agrees to PT. Pain Location: No Pain Reported Mental Status Patient Orientation: Person, Place, Time, Situation Attachments: Oxygen (0.5L) Transfers SCALE: Activities may be completed with or without assistive devices. 5-Pjccunlpaz-dgwrrsj completes the activity by him/herself with no assistance from a helper. 5-Set-up or Clean-up Assistance-helper sets up or cleans up; patient completes activity. [place] assists only prior to or following the activity. 4-Supervision or Touching Assistance-helper provides verbal cues and/or touching/steadying and/or contact guard assistance as patient completes activity. Assistance may be provided throughout the activity or intermittently. 3-Partial/Moderate Assistance-helper does LESS THAN HALF the effort. [place] lifts, holds or supports trunk or limbs, but provides less than half the effort. 2-Substantial/Maximal Assistance-helper does MORE THAN HALF the effort. [place] lifts or holds trunk or limbs and provides more than half the effort. 6-Wusnajtgx-clgvdr does ALL the effort. Patient does none of the effort to complete the activity. Or, the assistance of 2 or more helpers is required for the patient to complete the activity. If activity was not attempted, code reason: 7-Patient Refused. 9-Not Applicable-not attempted and the patient did not perform the activity before the current illness, exacerbation or injury. 10-Not Attempted due to Environmental Limitations-(lack of equipment, weather restraints, etc.). 88-Not Attempted due to Medical Conditions or Safety Concerns. Sit to Stand (QC): 5 Weight Bearing Right Lower Extremity: Right Full Weight Bearing Left Lower Extremity: Left Full Weight Bearing Gait Training Does the Patient Walk?: Yes Distance: 150' x2 Walk 10 feet (QC): 5 Walk 50 ft with 2 Turns(QC): 5 Walk 150 ft (QC): 5 Gait Persons Needed: 1 Gait Assistive Device: FWW Exercises Seated Therapy Exercises: Ankle pumps, Long arc quads, Hip flexion, Kicking activity, Glut set Seated Reps: 15 Standing: Hamstring curls, Heel/toe raises, Marching, Mini squats, Weight shifts Standing Reps: 15 NuStep Minutes: 12 NuStep Workload: 4 Treatments Pt transfers from recliner to standing and ambulates in hallway. Pt uses NuStep for 12m at WL then completes Seated Ex. Pt completes Standing Ex at //bar before returning to room to rest in recliner. Pt has all needs met, call light in hand. Assessment Current Status: Good Progress Pt tolerates Rx well, taking occasional RB as needed. PT Short Term Goals Short Term Goals Time Frame: Jan 04, 2020 Roll Left & Right: 4 Sit to lyin Lying to sitting on side of be: 4 Sit to stand: 4 Walk 150 feet: 4 PT Display Artist Goals Display Artist Goals PT Senior Care Goals Time Frame: Jan 18, 2020 Roll Left & Right (QC): 6 Sit to Lying (QC): 6 Lying-Sitting on Side/Bed(QC): 6 Sit to Stand (QC): 6 Chair/Exp-xt-Ehpcg Xfer(QC): 6 Toilet Transfer (QC): 6 Car Transfer (QC): 6 Does the Patient Walk: Yes Walk 10 feet (QC): 6 Walk 50ft with 2 Turns (QC): 6 Walk 150 ft (QC): 6 Walking 10ft on Uneven Surface: 5 1 Step (curb) (QC): 5 4 Steps (QC): 5 12 Steps (QC): 9 Picking up an Object (QC): 4 Does the Pt use WC or Scooter?: No PT Plan Problem List Problem List: Activity Tolerance Treatment/Plan Treatment Plan: Continue Plan of Care Treatment Plan: Bed Mobility, Education, Functional Activity Monica, Functional Strength, Group Therapy, Gait, Safety, Therapeutic Exercise, Transfers Treatment Duration: Jan 18, 2020 Frequency: At least 5 of 7 days/Wk (IRF) Estimated Hrs Per Day: 1.5 hours per day Patient and/or Family Agrees t: Yes Safety Risks/Education Patient Education: Gait Training, Transfer Techniques, Correct Positioning, Safety Issues Teaching Recipient: Patient Teaching Methods: Discussion Response to Teaching: Verbalize Understanding Time/GCodes Time In: 800 Time Out: 900 Total Billed Treatment Time: 60 Total Billed Treatment 1, GT (15m) & EX x3 (45m) ABHIJIT SANTANA ROD PLACER Jan 03, 2020 10:04
--- NOTE | 2020-01-03 11:33 | Progress Note - Urology ---
Progress Note-Urology Progress Notes/Assess & Plan Progress/Assessment & Plan FEELING, LOOKING AND DOING BETTER. CONTINUE SAME PLAN Final Diagnosis URINE RETENTION STANISLAV SHORT MD Jan 03, 2020 11:33
--- NOTE | 2020-01-03 11:46 | Occupational Ther Daily Note ---
OT Current Status-Daily Note Subjective Pt seen in recliner chair, 2 daughters present at start of session, soon leave. Pt agrees to OT tx session with goals of shower/ dressing. Pt states no pain, but slept "on and off with weird dreams" within the night. Pt states abdomen/ stomach feels "better". Mental Status/Objective Patient Orientation: Person, Place, Situation Attachments: Oxygen (1L) ADL-Treatment Therapy Code Descriptions/Definitions Functional [place] Measure: 0=Not Assessed/NA 4=Minimal Assistance 1=Total Assistance 5=Supervision or Setup 2=Maximal Assistance 6=Modified [place] 3=Moderate Assistance 7=Complete IndependenceSCALE: Activities may be completed with or without assistive devices. 3-Plcjbidwfh-zoiucoi completes the activity by him/herself with no assistance from a helper. 5-Set-up or Clean-up Assistance-helper sets up or cleans up; patient completes activity. [place] assists only prior to or following the activity. 4-Supervision or Touching Assistance-helper provides verbal cues and/or touching/steadying and/or contact guard assistance as patient completes activity. Assistance may be provided throughout the activity or intermittently. 3-Partial/Moderate Assistance-helper does LESS THAN HALF the effort. [place] lifts, holds or supports trunk or limbs, but provides less than half the effort. 2-Substantial/Maximal Assistance-helper does MORE THAN HALF the effort. [place] lifts or holds trunk or limbs and provides more than half the effort. 1-Ehpgbflcd-gpskpq does ALL the effort. Patient does none of the effort to complete the activity. Or, the assistance of 2 or more helpers is required for the patient to complete the activity. If activity was not attempted, code reason: 7-Patient Refused. 9-Not Applicable-not attempted and the patient did not perform the activity before the current illness, exacerbation or injury. 10-Not Attempted due to Environmental Limitations-(lack of equipment, weather restraints, etc.). 88-Not Attempted due to Medical Conditions or Safety Concerns. Eating (QC): 6 Oral Hygiene (QC): 4 (SUP at sink with walker) Bathing Location: L Arm, R Arm, L Upper Leg, R Upper Leg, L Lower Leg (including foot), R Lower Leg (including foot), Chest, Abdomen, Buttocks, Perineal Area Shower/Bathe Self (QC): 4 (SBA in stanceCGA during transferPt showers while standing, states she does not plan to sit at home. pt has shower chair at home, states she may not use it. Pt educate don the benefits of energy conservation, respiratory support during hot showers. Pt acknowledges but states plans to shower standing. ) Upper Body Dressing (QC): 4 (SBA in stance. Pt able to complete bra/ shirt with increased IND.) Lower Body Dressing (QC): 4 (SBA in stance) On/Off Footwear: 6 (IND on chair.) Toileting Hygiene (QC): 4 (SUP) Toilet Transfer (QC): 4 (SUP) Other Treatment Pt completes sit to stand with walker, ambulates to toilet to complete with SUP. Pt has difficulties with word finding this date. Pt utilizes grab bars for balance, sits on shower chair and undresses with IND (reminders for 02 cannula), and completes shower in stance with SBA/ no instance of SOB with 02 on. Pt dresses in robe to dry off, places socks on and returns to recliner. Pt completes 15 min of theraband ex in standing with 2 rest breaks, completing: shoulder flexion, shoulder internal rotation, shoulder horizontal ab/ adduction, shoulder scaption (to tolerable range), back pulls, back flies, and biceps. Pt does not demonstrate SOB, but states needs 2 rest breaks during activity. Pt dresses in chair. Pt then utilizes walker to stabilize self while picking 3 small items from floor with good balance (CGA-SBA). Pt ambulates to gym, completes 15 min of standing while reaching in different planes (within reach) to encourage endurance and ROM of UE. Pt returns to room, daughter present, denies need for bathroom, call light in reach, all needs met, daughter notified of chair alarm off due to daughter in room. Daughter acknowledges. Pt and daughter educated on meeting this afternoon, both pt and daughter state they are not able to think of needs to be expressed. Education OT Patient Education: Correct positioning, Exercise program, Home exercise program, Instructions to caregiver, Modified ADL techniques, Safety issues, Use of adapted equipment Teaching Recipient: Patient, Family Teaching Methods: Demonstration, Discussion Response to Teaching: Verbalize Understanding, Return Demonstration, Reinforcement Needed OT Short Term Goals Short Term Goals Upper body dressin (met) Putting on/taking off footwear: 6 OT Halfway Goals Computer Systems Manager Goals Time Frame: Jan 11, 2020 Eating (QC): 6 (met) Oral Hygiene (QC): 6 Toileting Hygiene (QC): 6 Shower/Bathe Self (QC): 6 Upper Body Dressing (QC): 6 Lower Body Dressing (QC): 6 On/Off Footwear (QC): 6 (met) Additional Goals: 1-Demonstrate ADL Tasks, 2-Verbalize Understanding, 3- ImproveStrength/Monica 1=Demonstrate adherence to instructed precautions during ADL tasks. 2=Patient will verbalize/demonstrate understanding of assistive devices/modifications for ADL. 3=Patient will improve strength/tolerance for activity to enable patient to perform ADL's. OT Education/Plan Problem List/Assessment Assessment: Decreased Activ Tolerance, Decreased UE Strength, Impaired I ADL's, Impaired Self-Care Skills, Restricted Funct UE ROM Discharge Recommendations Plan/Recommendations: Continue POC Therapy Discharge Recommendati: Intermittent Supervision Treatment Plan/Plan of Care Treatment,Training & Education: Yes Patient would benefit from OT for education, treatment and training to promote independence in ADL's, mobility, safety and/or upper extremity function for ADL's. Plan of Care: ADL Retraining, Caregiver Training, Functional Mobility Treatment Duration: Jan 11, 2020 Frequency: At least 5 of 7 days/Wk (IRF) Estimated Hrs Per Day: 1.5 hours per day Agreement: Yes Rehab Potential: Good Time/GCodes Start Time: 09:30 Stop Time: 11:00 Total Time Billed (hr/min): 90 Billed Treatment Time 1, ADL 3 (45), EX 3 (45)=(90) RUDDY LEON OTR Jan 03, 2020 11:46
[2020-01-03] MEDS ORDERED: AMOXICILLIN 500 MG (POLYMOX) CAP PO STA (13:52)
[2020-01-03 14:03] VITALS: BP 164/73
[2020-01-03] MEDS: AMOXICILLIN 500 MG (POLYMOX) CAP PO SCH ×2 (14:50→19:53)
--- NOTE | 2020-01-03 15:23 | Physical Therapy Daily Note ---
PT Daily Note-Current Subjective Pt sitting in recliner visiting with daughter upon arrival. Pt agrees to walk with GRINDER SET UP OPERATOR THREAD for Rx. Pain Location: No Pain Reported Mental Status Patient Orientation: Person, Place, Time, Situation Attachments: Oxygen (0.5L) Transfers SCALE: Activities may be completed with or without assistive devices. 5-Rfbtrayezv-azhtegz completes the activity by him/herself with no assistance from a helper. 5-Set-up or Clean-up Assistance-helper sets up or cleans up; patient completes activity. [place] assists only prior to or following the activity. 4-Supervision or Touching Assistance-helper provides verbal cues and/or touching/steadying and/or contact guard assistance as patient completes act ivity. Assistance may be provided throughout the activity or intermittently. 3-Partial/Moderate Assistance-helper does LESS THAN HALF the effort. [place] lifts, holds or supports trunk or limbs, but provides less than half the effort. 2-Substantial/Maximal Assistance-helper does MORE THAN HALF the effort. [place] lifts or holds trunk or limbs and provides more than half the effort. 5-Natlbxsqs-wzawgb does ALL the effort. Patient does none of the effort to complete the activity. Or, the assistance of 2 or more helpers is required for the patient to complete the activity. If activity was not attempted, code reason: 7-Patient Refused. 9-Not Applicable-not attempted and the patient did not perform the activity before the current illness, exacerbation or injury. 10-Not Attempted due to Environmental Limitations-(lack of equipment, weather restraints, etc.). 88-Not Attempted due to Medical Conditions or Safety Concerns. Sit to Stand (QC): 6 Weight Bearing Right Lower Extremity: Right Full Weight Bearing Left Lower Extremity: Left Full Weight Bearing Gait Training Does the Patient Walk?: Yes Distance: 150', 200' Walk 10 feet (QC): 5 Walk 50 ft with 2 Turns(QC): 5 Walk 150 ft (QC): 5 Gait Persons Needed: 1 Gait Assistive Device: FWW Pt takes standing RB as needed for fatigue. Wheelchair Training Does the Pt Use a Wheelchair?: No Treatments Pt, daughter & GRINDER SET UP OPERATOR THREAD discuss pt's progress as well as how pt & daughter feel pt is still experiencing drainage. This is reported to Nurse. Pt transfers from recliner to standing and ambulates in hallway. Pt returns to room at end of walk to rest in recliner, declining need to use restroom. Pt has all needs met, call light in hand. Assessment Current Status: Good Progress Pt is improving with activity tolerance and safety. PT Short Term Goals Short Term Goals Time Frame: Jan 04, 2020 Roll Left & Right: 4 Sit to lyin Lying to sitting on side of be: 4 Sit to stand: 4 Walk 150 feet: 4 PT Yarn Tester Goals Yarn Tester Goals PT Yarn Tester Goals Time Frame: Jan 18, 2020 Roll Left & Right (QC): 6 Sit to Lying (QC): 6 Lying-Sitting on Side/Bed(QC): 6 Sit to Stand (QC): 6 Chair/Vph-dx-Mrrwk Xfer(QC): 6 Toilet Transfer (QC): 6 Car Transfer (QC): 6 Does the Patient Walk: Yes Walk 10 feet (QC): 6 Walk 50ft with 2 Turns (QC): 6 Walk 150 ft (QC): 6 Walking 10ft on Uneven Surface: 5 1 Step (curb) (QC): 5 4 Steps (QC): 5 12 Steps (QC): 9 Picking up an Object (QC): 4 Does the Pt use WC or Scooter?: No PT Plan Problem List Problem List: Activity Tolerance Treatment/Plan Treatment Plan: Continue Plan of Care Treatment Plan: Bed Mobility, Education, Functional Activity Monica, Functional Strength, Group Therapy, Gait, Safety, Therapeutic Exercise, Transfers Treatment Duration: Jan 18, 2020 Frequency: At least 5 of 7 days/Wk (IRF) Estimated Hrs Per Day: 1.5 hours per day Patient and/or Family Agrees t: Yes Safety Risks/Education Patient Education: Gait Training, Transfer Techniques, Correct Positioning, Safety Issues Teaching Recipient: Patient Teaching Methods: Discussion Response to Teaching: Verbalize Understanding Time/GCodes Time In: 1430 Time Out: 1500 Total Billed Treatment Time: 30 Total Billed Treatment 1, GT (20m) & FA (10m) ABHIJIT SANTANA GRINDER SET UP OPERATOR THREAD Jan 03, 2020 15:23
--- NOTE | 2020-01-03 15:45 | NUR ---
CM/SS WEEKLY TEAM CONFERENCE SUMMARY and DISCHARGE PLANNING Visited with patient and her daughter Sadie Roberto about overall discharge planning and provided this input during Team conference. Sadie also shared discussion with her siblings who will be staying with patient 14/06. Physician, Team, patient, family all in agreement for patient's discharge 01/04/20. Patient and daughter reviewed Summary and IMM2, answered questions to their satisfaction, signatures obtained, charted. [facility]: Provided Medicare Compare information for home health agencies in patient service area, they have selected [facility] agency to provide services. Referral initialized for RN, PT, OT and will finalize tomorrow. DME: Patient is on a very low liter flow of O2, she is not in favor of returning home on O2; however, she understands she will be tested by RT to determine need. If home O2 is needed, patient/family requested [facility] for this service. Patient had 9 children, a daughter was killed at a young age in a vehicle accident driving from [place] back to [place] while attending school there. Another daughter passed recently leaving 7 living children. They present as a very close family dedicated to patient for her care and attendance. Other contacts include: Riri Lai, Daughter [place] [phone] Lizzette Mick, Daughter [facility], [place] [phone] Followup in a.m. regarding home O2 results and overall finalization of post hospital care.
--- NOTE | 2020-01-03 16:53 | NUR ---
home O2 qualification. patient does not qualify for home O2 at this time.
[2020-01-03] MEDS: ENOXAPARIN 30 MG/0.3 ML (LOVENOX) SYR SC SCH (16:59)
[2020-01-03 17:28] VITALS: BP 163/72
[2020-01-03] MEDS: TAMSULOSIN 0.4 MG (FLOMAX) CAP PO SCH (18:42)
[2020-01-03] MEDS: ALPRAZolam 0.25 MG (XANAX) TAB PO PRN (19:54)
[2020-01-03] MEDS: MONTELUKAST 10 MG (SINGULAIR) TAB PO SCH (19:54)
[2020-01-03] MEDS: FAMOTIDINE 20 MG (PEPCID) TABLET PO SCH (19:54)
[2020-01-03] MEDS: SIMvastatin 10 MG (ZOCOR) TAB PO SCH (19:55)
[2020-01-03] MEDS: ONDANSETRON 4 MG/2 ML (SDV) Z0FRAN IV PRN (21:16)
[2020-01-03] MEDS: MELATONIN 3 MG TABLET PO PRN (22:55)
[2020-01-03] MEDS: ANTACID SUSP 30 ML UDC (MYLANTA) PO PRN (23:53)
[2020-01-04] MEDS: ONDANSETRON 4 MG/2 ML (SDV) Z0FRAN IV PRN (03:13)
[2020-01-04] MEDS: LORazepam INJ 2 MG/ML (ATIVAN) VIAL IVP PRN (03:13)
[2020-01-04 05:06] VITALS: BP 163/76
[2020-01-04] MEDS: SUCRALFATE 1 GM (CARAFATE) TAB PO SCH (06:02)
[2020-01-04] MEDS ORDERED: BACL10TA PO (06:03)
[2020-01-04] MEDS ORDERED: LORAZ30SOL PO (06:03)
[2020-01-04] MEDS ORDERED: MORP100S3 PO (06:03)
[2020-01-04] MEDS ORDERED: AMOX500C2 PO (06:03)
[2020-01-04] MEDS ORDERED: SUCR1TAB PO (06:03)
[2020-01-04] MEDS ORDERED: TMSL.4C PO (06:03)
--- NOTE | 2020-01-04 06:46 | D/C HH Face to Face Order ---
D/C Face to Face Orders Reconcile Patient Problems Problems Reviewed?: Yes Instructions for Patient Via [facility], Patient Instructions/FollowUp: DR Dejesus in 1 week Physician to follow Patient: Dr Dejesus Discharge Diet for Home: No Restrictions Patient Problems: Sepsis UTI Goals for Patient: Indpendence Patient Data-Allergies,Ht & Wt Patient Allergies: Coded Allergies: codeine (Verified Allergy, Mild, 12/25/19) Height (Feet): 5 Height (Inches): 0 Weight (Pounds): 160 Weight (Ounces): 0.0 Home Health Need/Face to Face Date of Face to Face: Jan 04, 2020 Clinical Findings: Generalized weakness and fatigue, Muscle weakness, Unsteady gait I have seen Pt [id number]: Yes Discharged To: Home Diagnosis/Conditions: Sepsis UTI Patient is Homebound due to: [place] fall risk due to instabilty, Muscle weakness, Shortness of breath/distress Homebound Status Due to the above stated illness, injury or surgical procedure (medical condition or diagnosis) and associated clinical findings, the patient is homebound because of his/her inability to leave home except with aid of a supportive device and/or person AND leaving the home requires a considerable and taxing effort or is medically contraindicated. Pt req the following assistanc: Walker Home Health Nursing Orders Home Health Services Order: Nursing Services, Android Architect-Evaluate & Treat, Physical Therapy-Evaluate & Treat Certify Stmt I certify that this patient is under my care and that I, a nurse practitioner or a physician; a household assistant working with me, had a face to face encounter that - meets the physician face to face encounter requirements with this patient as dated. TAHIR DEJESUS DO Jan 04, 2020 06:46
--- NOTE | 2020-01-04 08:00 | NUR ---
Family expressed concerns that patient is not acting "Normal" and has been "Doing this all night." patient is restless and appears to be clenching her jaw and shutting her eyes tight. VS 189/71 pulse-79. o2 applied for comfort. Dr. Heidy Hammond's PA here in room to assess patient as well. Stephany called Dr. Moody to notify him and he states he will be up shortly to round on patient. 819-this RN rechecked bp-207/61 Dr. Moody still in room with this RN and patient and ordered this RN to give clonidine 0.1mg PO now. 823-This RN stepped out of room to grab medication at this time. 825- This RN went into room to give patient now/stat medication. patient's status stable however she is actively refusing to open her mouth and still has her jaw clenched. Will chart medication as patient refusal and will notify Dr. Moody that patient did not take clonidine 0.1 mg PO dose. 08-This RN called Dr. Moody to report to him that patient is refusing to take her clonidine after multiple attempts to get her to. Dr. Moody states that he is talking to Dr. Dejesus now and they will both be up soon to round. Will continue to monitor.
[2020-01-04] MEDS ORDERED: cloNIDine 0.1 MG (CATAPRES) TAB ONE (08:24)
[2020-01-04] MEDS ORDERED: cloNIDine 0.1 MG (CATAPRES) TAB PO NR (08:30)
[2020-01-04] MEDS: RT-ALBUTEROL SULF 2.5 MG/3 ML PRE-MIX VIAL INH SCH (08:35)
--- NOTE | 2020-01-04 09:12 | Discharge Summary ---
Diagnosis/Chief Complaint Date of Admission Dec 28, 2019 at 11:35 Date of Discharge Discharge Date: Jan 04, 2020 Discharge Diagnosis Assessment: s/p sepsis Bacteremia E coli still s/p Rocephin the repeat UA with Enterococcus so place on Amoxil s/p Tremors/rigors of uncertain source normal CT scan and labs and does not appear to be organically based but checking to assure that indeed is correct and seems to have resolved with Baclofen had another episode today and Dr Nunez witnessed and CT brain and labs ok COPD CAD Esophageal spasms DJD of spine CRI s/p ARF HTN HLP Anemia s/p transfusions Plan: DC tomorrow Amoxil Baclofen has resolved the tremors but had another recurrence today unsure of the source IRF protocol (1) Debility (2) Chronic renal insufficiency Status: Chronic (3) Gastritis Status: Acute (4) Situational anxiety Status: Acute (5) Urinary tract infection Status: Acute (6) Chronic anemia Status: Chronic (7) COPD (chronic obstructive pulmonary disease) Status: Chronic (8) Gout Status: Chronic (9) CAD (coronary artery disease) (10) Dysphagia (11) Hyperlipidemia Status: Chronic (12) Neuropathy Status: Acute (13) Radiculopathy (14) History of coronary artery stent placement Status: Chronic Discharge Summary Discharge Physical Examination Allergies: Coded Allergies: codeine (Verified Allergy, Mild, 12/25/19) Vitals & I&Os Vital Signs Date Time Temp Pulse Resp B/P (MAP) Pulse Ox O2 Delivery O2 Flow Rate FiO2 01/04/20 08:00 Nasal Cannula 1.00 01/04/20 05:06 36.4 71 18 163/76 (105) 91 12/29/19 22:29 28 Hospital Course Was the Problem List Reviewed?: Yes Hospital course: Pt had a lengthy hospital course in inpatient rehab after sepsis and UTI. She did have more and more complications during her hospital course including tremors of unknown source and they were witnessed and it appeared to be more of a pseudoseizure type of situation. She ultimately became more and more complicated requiring a transfer to the ICU to rule out stroke and sepsis. Pt even had another UTI after Rocephin discontinued and completed treatment after one day and ends up urine culture was Enterococcus so Amoxil had been placed on board but overall Pt has had such a declined status requiring more and more aggressive treatment, she remains DNR and diagnosis was assessed the night she was admitted to begin with so will provide supportive care and appreciate Dr. Nunez and Dr. Moody's consultation expertise. Labs (last 24 hrs) Laboratory Tests 12/29/19 05:45: White Blood Count 6.3, Red Blood Count 2.53L, Hemoglobin 7.9L, Hematocrit 23L, Mean Corpuscular Volume 90, Mean Corpuscular Hemoglobin 31, Mean Corpuscular Hemoglobin Concent 35, Red Cell Distribution Width 15.1H, Platelet Count 253, Mean Platelet Volume 10.8H, Neutrophils (%) (Auto) 63, Lymphocytes (%) (Auto) 23, Monocytes (%) (Auto) 11, Eosinophils (%) (Auto) 3, Basophils (%) (Auto) 1, Neutrophils # (Auto) 4.0, Lymphocytes # (Auto) 1.4, Monocytes # (Auto) 0.7, Eosinophils # (Auto) 0.2, Basophils # (Auto) 0.0, Sodium Level 139, Potassium Level 4.3, Chloride Level 113H, Carbon Dioxide Level 16L, Anion Gap 10, Blood Urea Nitrogen 23H, Creatinine 1.73H, Estimat Glomerular Filtration Rate 28, BUN/Creatinine Ratio 13, Glucose Level 86, Calcium Level 8.6, Corrected Calcium 9.2, Total Bilirubin 0.4, Aspartate Amino Transf (AST/SGOT) 17, Alanine Aminotransferase (ALT/SGPT) 12, Alkaline Phosphatase 121, Total Protein 6.1L, A lbumin 3.2 12/30/19 13:45: White Blood Count 8.9, Red Blood Count 2.90L, Hemoglobin 7.9L, Hematocrit 25L, Mean Corpuscular Volume 87, Mean Corpuscular Hemoglobin 27, Mean Corpuscular Hemoglobin Concent 31L, Red Cell Distribution Width 15.4H, Platelet Count 347, Mean Platelet Volume 9.9, Neutrophils (%) (Auto) 71, Lymphocytes (%) (Auto) 18, Monocytes (%) (Auto) 7, Eosinophils (%) (Auto) 4, Basophils (%) (Auto) 0, Neutrophils # (Auto) 6.3, Lymphocytes # (Auto) 1.6, Monocytes # (Auto) 0.6, Eosinophils # (Auto) 0.3, Basophils # (Auto) 0.0, Sodium Level 140, Potassium Level 4.1, Chloride Level 112H, Carbon Dioxide Level 19L, Anion Gap 9, Blood Urea Nitrogen 20H, Creatinine 1.64H, Estimat Glomerular Filtration Rate 29, BUN/Creatinine Ratio 12, Glucose Level 132H, Calcium Level 8.5, Corrected Calcium 8.9, Total Bilirubin 0.5, Aspartate Amino Transf (AST/SGOT) 12, Alanine Aminotransferase (ALT/SGPT) 10, Alkaline Phosphatase 137H, Total Protein 6.5, Albumin 3.5 12/30/19 15:00: Urine Color YELLOW, Urine Clarity CLEAR, Urine pH 5.5, Urine Specific [place] 1.020, Urine Protein TRACEH, Urine Glucose (UA) NEGATIVE, Urine Ketones NEGATIVE, Urine Nitrite NEGATIVE, Urine Bilirubin NEGATIVE, Urine Urobilinogen 0.2, Urine Leukocyte Esterase NEGATIVE, Urine RBC (Auto) NEGATIVE, Urine RBC NONE, Urine WBC 0-2, Urine Squamous Epithelial Cells 0-2, Urine Crystals NONE, Urine Bacteria TRACE, Urine Casts PRESENT, Urine Hyaline Casts RARE, Urine Mucus SMALLH, Urine Culture Indicated NO 12/31/19 05:25: White Blood Count 8.2, Red Blood Count 2.77L, Hemoglobin 7.6L, Hematocrit 24L, Mean Corpuscular Volume 87, Mean Corpuscular Hemoglobin 27, Mean Corpuscular Hemoglobin Concent 31L, Red Cell Distribution Width 14.9H, Platelet Count 345, Mean Platelet Volume 10.0, Neutrophils (%) (Auto) 65, Lymphocytes (%) (Auto) 22, Monocytes (%) (Auto) 9, Eosinophils (%) (Auto) 4, Basophils (%) (Auto) 0, Neutrophils # (Auto) 5.4, Lymphocytes # (Auto) 1.8, Monocytes # (Auto) 0.7, Eosinophils # (Auto) 0.3, Basophils # (Auto) 0.0, Sodium Level 142, Potassium Level 3.8, Chloride Level 113H, Carbon Dioxide Level 20L, Anion Gap 9, Blood Urea Nitrogen 17, Creatinine 1.53H, Estimat Glomerular Filtration Rate 32, BUN/Creatinine Ratio 11, Glucose Level 95, Calcium Level 8.5, Corrected Calcium 9.1, Total Bilirubin 0.3, Aspartate Amino Transf (AST/SGOT) 10, Alanine Aminotransferase (ALT/SGPT) 11, Alkaline Phosphatase 123, Total Protein 6.1L, Albumin 3.3 01/01/20 05:35: White Blood Count 10.6, Red Blood Count 3.17L, Hemoglobin 8.5L, Hematocrit 28L, Mean Corpuscular Volume 87, Mean Corpuscular Hemoglobin 27, Mean Corpuscular Hemoglobin Concent 31L, Red Cell Distribution Width 15.3H, Platelet Count 431H, Mean Platelet Volume 10.1, Neutrophils (%) (Auto) 68, Lymphocytes (%) (Auto) 21, Monocytes (%) (Auto) 7, Eosinophils (%) (Auto) 4, Basophils (%) (Auto) 0, Neutrophils # (Auto) 7.3, Lymphocytes # (Auto) 2.2, Monocytes # (Auto) 0.7, Eosinophils # (Auto) 0.4H, Basophils # (Auto) 0.0, Sodium Level 144, Potassium Level 4.1, Chloride Level 113H, Carbon Dioxide Level 20L, Anion Gap 11, Blood Urea Nitrogen 16, Creatinine 1.54H, Estimat Glomerular Filtration Rate 32, BUN/Creatinine Ratio 10, Glucose Level 94, Calcium Level 9.3, Corrected Calcium 9.5, Total Bilirubin 0.5, Aspartate Amino Transf (AST/SGOT) 19, Alanine Aminotransferase (ALT/SGPT) 12, Alkaline Phosphatase 143H, Total Protein 6.9, Albumin 3.7 01/02/20 14:35: Urine Color YELLOW, Urine Clarity CLEAR, Urine pH 6.0, Urine Specific [place] 1.025H, Urine Protein 1+H, Urine Glucose (UA) NEGATIVE, Urine Ketones NEGATIVE, Urine Nitrite NEGATIVE, Urine Bilirubin NEGATIVE, Urine Urobilinogen 0.2, Urine Leukocyte Esterase NEGATIVE, Urine RBC (Auto) NEGATIVE, Urine RBC 0-2, Urine WBC 5-10H, Urine Squamous Epithelial Cells 5-10, Urine Crystals NONE, Urine Bacteria LARGEH, Urine Casts NONE, Urine Mucus NEGATIVE, Urine Culture Indicated YES 01/02/20 14:52: Sodium Level 137, Potassium Level 4.4, Chloride Level 107, Carbon Dioxide Level 21, Anion Gap 9, Blood Urea Nitrogen 24H, Creatinine 1.64H, Estimat Glomerular Filtration Rate 29, BUN/Creatinine Ratio 15, Glucose Level 95, Calcium Level 8.3L, Corrected Calcium 8.8, Total Bilirubin 0.4, Aspartate Amino Transf (AST/SGOT) 30, Alanine Aminotransferase (ALT/SGPT) 21, Alkaline Phosphatase 135, Total Protein 6.4, Albumin 3.4, Phosphorus Level 2.4, Magnesium Level 2.2, B- Type Natriuretic Peptide 317.2H 01/03/20 06:25: White Blood Count 7.1, Red Blood Count 2.79L, Hemoglobin 7.5L, Hematocrit 25L, Mean Corpuscular Volume 88, Mean Corpuscular Hemoglobin 27, Mean Corpuscular Hemoglobin Concent 31L, Red Cell Distribution Width 15.1H, Platelet Count 416H, Mean Platelet Volume 9.5, Neutrophils (%) (Auto) 58, Lymphocytes (%) (Auto) 29, Monocytes (%) (Auto) 9, Eosinophils (%) (Auto) 4, Basophils (%) (Auto) 0, Neutrophils # (Auto) 4.1, Lymphocytes # (Auto) 2.0, Monocytes # (Auto) 0.7, Eosinophils # (Auto) 0.3, Basophils # (Auto) 0.0 Microbiology 01/02/20 Urine Culture - Final, Complete Enterococcus faecalis Pending Labs Microbiology Date/Time Source Procedure Growth Status 01/02/20 14:35 Urine Straight Cath, In/Out Urine Culture - Final Enterococcus faecalis Complete Laboratory Tests 12/29/19 05:45: White Blood Count 6.3, Red Blood Count 2.53, Hemoglobin 7.9, Hematocrit 23, Mean Corpuscular Volume 90, Mean Corpuscular Hemoglobin 31, Mean Corpuscular Hemoglobin Concent 35, Red Cell Distribution Width 15.1, Platelet Count 253, Mean Platelet Volume 10.8, Neutrophils (%) (Auto) 63, Lymphocytes (%) (Auto) 23, Monocytes (%) (Auto) 11, Eosinophils (%) (Auto) 3, Basophils (%) (Auto) 1, Neutrophils # (Auto) 4.0, Lymphocytes # (Auto) 1.4, Monocytes # (Auto) 0.7, Eosinophils # (Auto) 0.2, Basophils # (Auto) 0.0, Sodium Level 139, Potassium Level 4.3, Chloride Level 113, Carbon Dioxide Level 16, Anion Gap 10, Blood Urea Nitrogen 23, Creatinine 1.73, Estimat Glomerular Filtration Rate 28, BUN/Creatinine Ratio 13, Glucose Level 86, Calcium Level 8.6, Corrected Calcium 9.2, Total Bilirubin 0.4, Aspartate Amino Transf (AST/SGOT) 17, Alanine Aminotransferase (ALT/SGPT) 12, Alkaline Phosphatase 121, Total Protein 6.1, Albumin 3.2 12/30/19 13:45: White Blood Count 8.9, Red Blood Count 2.90, Hemoglobin 7.9, Hematocrit 25, Mean Corpuscular Volume 87, Mean Corpuscular Hemoglobin 27, Mean Corpuscular Hemoglobin Concent 31, Red Cell Distribution Width 15.4, Platelet Count 347, Mean Platelet Volume 9.9, Neutrophils (%) (Auto) 71, Lymphocytes (%) (Auto) 18, Monocytes (%) (Auto) 7, Eosinophils (%) (Auto) 4, Basophils (%) (Auto) 0, Neutrophils # (Auto) 6.3, Lymphocytes # (Auto) 1.6, Monocytes # (Auto) 0.6, Eosinophils # (Auto) 0.3, Basophils # (Auto) 0.0, Sodium Level 140, Potassium Level 4.1, Chloride Level 112, Carbon Dioxide Level 19, Anion Gap 9, Blood Urea Nitrogen 20, Creatinine 1.64, Estimat Glomerular Filtration Rate 29, BUN/Creatinine Ratio 12, Glucose Level 132, Calcium Level 8.5, Corrected Calcium 8.9, Total Bilirubin 0.5, Aspartate Amino Transf (AST/SGOT) 12, Alanine Aminotransferase (ALT/SGPT) 10, Alkaline Phosphatase 137, Total Protein 6.5, Albumin 3.5 12/30/19 15:00: Urine Color YELLOW, Urine Clarity CLEAR, Urine pH 5.5, Urine Specific [place] 1.020, Urine Protein TRACE, Urine Glucose (UA) NEGATIVE, Urine Ketones NEGATIVE, Urine Nitrite NEGATIVE, Urine Bilirubin NEGATIVE, Urine Urobilinogen 0.2, Urine Leukocyte Esterase NEGATIVE, Urine RBC (Auto) NEGATIVE, Urine RBC NONE, Urine WBC 0-2, Urine Squamous Epithelial Cells 0-2, Urine Crystals NONE, Urine Bacteria TRACE, Urine Casts PRESENT, Urine Hyaline Casts RARE, Urine Mucus SMALL, Urine Culture Indicated NO 12/31/19 05:25: White Blood Count 8.2, Red Blood Count 2.77, Hemoglobin 7.6, Hematocrit 24, Mean Corpuscular Volume 87, Mean Corpuscular Hemoglobin 27, Mean Corpuscular Hemoglobin Concent 31, Red Cell Distribution Width 14.9, Platelet Count 345, Mean Platelet Volume 10.0, Neutrophils (%) (Auto) 65, Lymphocytes (%) (Auto) 22, Monocytes (%) (Auto) 9, Eosinophils (%) (Auto) 4, Basophils (%) (Auto) 0, Neutrophils # (Auto) 5.4, Lymphocytes # (Auto) 1.8, Monocytes # (Auto) 0.7, Eosinophils # (Auto) 0.3, Basophils # (Auto) 0.0, Sodium Level 142, Potassium Level 3.8, Chloride Level 113, Carbon Dioxide Level 20, Anion Gap 9, Blood Urea Nitrogen 17, Creatinine 1.53, Estimat Glomerular Filtration Rate 32, BUN/Creatinine Ratio 11, Glucose Level 95, Calcium Level 8.5, Corrected Calcium 9.1, Total Bilirubin 0.3, Aspartate Amino Transf (AST/SGOT) 10, Alanine Ami notransferase (ALT/SGPT) 11, Alkaline Phosphatase 123, Total Protein 6.1, Albumin 3.3 01/01/20 05:35: White Blood Count 10.6, Red Blood Count 3.17, Hemoglobin 8.5, Hematocrit 28, Mean Corpuscular Volume 87, Mean Corpuscular Hemoglobin 27, Mean Corpuscular Hemoglobin Concent 31, Red Cell Distribution Width 15.3, Platelet Count 431, Mean Platelet Volume 10.1, Neutrophils (%) (Auto) 68, Lymphocytes (%) (Auto) 21, Monocytes (%) (Auto) 7, Eosinophils (%) (Auto) 4, Basophils (%) (Auto) 0, Garcia trophils # (Auto) 7.3, Lymphocytes # (Auto) 2.2, Monocytes # (Auto) 0.7, Eosinophils # (Auto) 0.4, Basophils # (Auto) 0.0, Sodium Level 144, Potassium Level 4.1, Chloride Level 113, Carbon Dioxide Level 20, Anion Gap 11, Blood Urea Nitrogen 16, Creatinine 1.54, Estimat Glomerular Filtration Rate 32, BUN/Creatinine Ratio 10, Glucose Level 94, Calcium Level 9.3, Corrected Calcium 9.5, Total Bilirubin 0.5, Aspartate Amino Transf (AST/SGOT) 19, Alanine Aminotransferase (ALT/SGPT) 12, Alkaline Phosphatase 143, Total Protein 6.9, Albumin 3.7 01/02/20 14:35: Urine Color YELLOW, Urine Clarity CLEAR, Urine pH 6.0, Urine Specific [place] 1.025, Urine Protein 1+, Urine Glucose (UA) NEGATIVE, Urine Ketones NEGATIVE, Urine Nitrite NEGATIVE, Urine Bilirubin NEGATIVE, Urine Urobilinogen 0.2, Urine Leukocyte Esterase NEGATIVE, Urine RBC (Auto) NEGATIVE, Urine RBC 0-2, Urine WBC 5-10, Urine Squamous Epithelial Cells 5-10, Urine Crystals NONE, Urine Bacteria LARGE, Urine Casts NONE, Urine Mucus NEGATIVE, Urine Culture Indicated YES 01/02/20 14:52: Sodium Level 137, Potassium Level 4.4, Chloride Level 107, Carbon Dioxide Level 21, Anion Gap 9, Blood Urea Nitrogen 24, Creatinine 1.64, Estimat Glomerular Filtration Rate 29, BUN/Creatinine Ratio 15, Glucose Level 95, Calcium Level 8.3, Corrected Calcium 8.8, Total Bilirubin 0.4, Aspartate Amino Transf (AST/SGOT) 30, Alanine Aminotransferase (ALT/SGPT) 21, Alkaline Phosphatase 135, Total Protein 6.4, Albumin 3.4, Phosphorus Level 2.4, Magnesium Level 2.2, B- Type Natriuretic Peptide 317.2 01/03/20 06:25: White Blood Count 7.1, Red Blood Count 2.79, Hemoglobin 7.5, Hematocrit 25, Mean Corpuscular Volume 88, Mean Corpuscular Hemoglobin 27, Mean Corpuscular Hemoglobin Concent 31, Red Cell Distribution Width 15.1, Platelet Count 416, Mean Platelet Volume 9.5, Neutrophils (%) (Auto) 58, Lymphocytes (%) (Auto) 29, Monocytes (%) (Auto) 9, Eosinophils (%) (Auto) 4, Basophils (%) (Auto) 0, Neutrophils # (Auto) 4.1, Lymphocytes # (Auto) 2.0, Monocytes # (Auto) 0.7, Eosinophils # (Auto) 0.3, Basophils # (Auto) 0.0 Discharge Home Medications: Active Scripts Active Lorazepam 2 Mg/1 Ml Oral.conc 0.5 Mg PO Q4H Sucralfate 1 Gm Tablet 1 Gm PO ACHS Morphine Conc. 20mg/ml (Morphine Sulfate) 100 Mg/5 Ml Solution 5 Mg PO Q4H PRN Baclofen 10 Mg Tablet 5 Mg PO TID Flomax (Tamsulosin HCl) 0.4 Mg Cap 0.4 Mg PO DAILY@1800 Amoxicillin 500 Mg Capsule 500 Mg PO Q12HR Reported Hydroxyzine HCl 25 Mg Tablet 25 Mg PO Q6H PRN Alprazolam 0.25 Mg Tablet 0.25 Mg PO TID PRN Montelukast Sodium 10 Mg Tablet 10 Mg PO HS Trelegy Ellipta 100-62.5-25 (Fluticasone/Umeclidin/Vilanter) 1 Each Blst.w.dev 1 Puff INH DAILY Ventolin Hfa (Albuterol Sulfate) 18 Gm Hfa.aer.ad 2 Puff INH Q4H PRN Pantoprazole Sodium 40 Mg Tablet.dr 40 Mg PO DAILY Salonpas Patch (Methyl Salicylate/Menthol) 1 Each Adh..patch 1 Patch TP HS Ondansetron Odt (Ondansetron) 4 Mg Tab.rapdis 4 Mg PO Q4H PRN Tramadol HCl 50 Mg Tablet 50 Mg PO Q4H PRN Hydrocodone-Acetamin 5-325 mg (Hydrocodone/Acetaminophen) 1 Each Tablet 1 Tab PO BID PRN Fexofenadine HCl 180 Mg Tablet 180 Mg PO DAILY PRN Acid Electronic Warfare Operator (RANITIDINE) (Ranitidine HCl) 150 Mg Tablet 150 Mg PO BID PRN Pravastatin Sodium 20 Mg Tablet 20 Mg PO DAILY Losartan Potassium 50 Mg Tablet 50 Mg PO DAILY Aspirin EC (Aspirin) 81 Mg Tablet.dr 81 Mg PO DAILY Amlodipine Besylate 5 Mg Tablet 7.5 Mg PO DAILY TAKES 1 & 1/2 (5MG) TABLET Instructions to patient/family Please see electronic discharge instructions given to patient. Diagnosis/Problems Diagnosis/Problems (1) Debility (2) Chronic renal insufficiency Status: Chronic (3) Gastritis Status: Acute (4) Situational anxiety Status: Acute (5) Urinary tract infection Status: Acute (6) Chronic anemia Status: Chronic (7) COPD (chronic obstructive pulmonary disease) Status: Chronic (8) Gout Status: Chronic (9) CAD (coronary artery disease) (10) Dysphagia (11) Hyperlipidemia Status: Chronic (12) Neuropathy Status: Acute (13) Radiculopathy (14) History of coronary artery stent placement Status: Chronic Clinical Quality Measures DVT/VTE Risk/Contraindication: Risk Factor Score Per Nursin RFS Level Per Nursing on Admit: 4+=Very High TAHIR MARTINEZ DO Jan 04, 2020 09:11
[2020-01-04] MEDS: DOCUSATE SODIUM 100 MG (COLACE) CAP PO SCH (09:36)
[2020-01-04] MEDS: polyethylene glycoL POWDER 17 GM (MIRALAX) PACK PO SCH (09:36)
[2020-01-04] MEDS: BACLOFEN 10 MG (LIORESAL) TAB PO SCH (09:36)
[2020-01-04] MEDS: LOSARTAN 50 MG (COZAAR) TAB PO SCH (09:36)
[2020-01-04] MEDS: TRELEGY ELLIPTA IH SCH (09:36)
[2020-01-04] MEDS: LORATADINE (CLARITIN) 10 MG TAB PO SCH (09:36)
[2020-01-04] MEDS: ASPIRIN E.C. 81 MG (ECOTRIN) TAB PO SCH (09:36)
[2020-01-04] MEDS: amLODIPine 2.5MG (NORVASC) TAB PO SCH (09:36)
[2020-01-04] MEDS: amLODIPine 5 MG (NORVASC) TAB PO SCH (09:37)
[2020-01-04] MEDS: SENNA W/DOCUSATE (SENOKOT S) TABLET PO SCH (09:37)
[2020-01-04] MEDS: PANTOPRAZOLE 40 MG (PROTONIX) TAB PO SCH (09:37)
[2020-01-04] MEDS: ACETAMINOPHEN 325 MG TABLET PO SCH (09:37)
[2020-01-04] MEDS: AMOXICILLIN 500 MG (POLYMOX) CAP PO SCH (09:37)
--- NOTE | 2020-01-04 10:25 | Progress Note - Urology ---
Progress Note-Urology Progress Notes/Assess & Plan Progress/Assessment & Plan HAS HBP AND SOME DETERIORATION IN SENSORIUM AND RESPONSE. MANAGED BY GAVIN HOLBROOK AND JUAN. TO BE TRANSFERRED TO ICU Final Diagnosis RETENTION AND UTI STANISLAV SHORT MD Jan 04, 2020 10:25
--- NOTE | 2020-01-04 10:40 | Therapy Team Discharge Summary ---
Therapy Discharge Summary Discharge Recommendations Date of Discharge Occupational Therapy Pt admitted to ER/ ICU on 12/25/2019 with dx of sepsis, UTI and acute renal failure. Pt transfers to ARU on 12/28 and d/c's on 01/04. Pt admits with functional independence level within ADLs being the following: showering CGA, UB dress min A, LB dress SBA, footwear min A. Pt and OT work towards a higher functional IND level through ADLs and safety measures, UE strengthening and endurance and problem solving. Pt limited by fluctuating cognitive functioning, impulsivity, and fatigue/ not sleeping well. Pt d/c's with most ADLs as SBA (toileting, UB/ LB dress), SUP (toileting) and IND footwear. Pt d/c's from ARU to go to higher level of care based on medical status. Decreased Activ Tolerance, Decreased UE Strength, Dependent Transfers, Edema, Impaired I ADL's, Impaired Self-Care Skills PT [facility] Goals Shuttle Repairer Goals PT [facility] Goals Time Frame: Jan 18, 2020 Roll Left to Right (QC): 6 Sit to Lying (QC): 6 Lying-Sitting on Side/Bed(QC): 6 Sit to Stand (QC): 6 Chair/Dlk-pe-Odnpt Xfer(QC): 6 Car Transfer (QC): 6 Does the Patient Walk: Yes Walk 10 feet (QC): 6 Walk 10ft-Uneven Surface(QC): 5 Walk 50ft with 2 Turns (QC): 6 Walk 150 ft (QC): 6 Does the Pt use WC or Scooter?: No 1 Step (curb) (QC): 5 4 Steps (QC): 5 12 Steps (QC): 9 Picking up an Object (QC): 4 OT [facility] Goals Shuttle Repairer Goals Time Frame: Jan 11, 2020 Eating (FIM): 6 Eating (QC): 6 (met) Oral Hygiene (QC): 6 Shower/Bathe Self (QC): 6 Upper Body Dressing (QC): 6 Lower Body Dressing (QC): 6 On/Off Footwear (QC): 6 (met) Toileting(FIM): 6 Toileting Hygiene (QC): 6 Toilet/Commode Transfer (QC): 6 Additional Goals: 1-Demonstrate ADL Tasks, 2-Verbalize Understanding, 3- ImproveStrength/Monica 1=Demonstrate adherence to instructed precautions during ADL tasks. 2=Patient will verbalize/demonstrate understanding of assistive devices/modifications for ADL. 3=Patient will improve strength/tolerance for activity to enable patient to perform ADL's. RUDDY LEON OTR Jan 04, 2020 10:40
--- NOTE | 2020-01-04 10:59 | Therapy Team Discharge Summary ---
Therapy Discharge Summary Discharge Recommendations Date of Discharge Physical Therapy Patient came to rehab with debility. Upon evaluation patient needed min assist for bed mobility and transfers, and ambulated 50' with a rolling walker with min assist. Patient has been performing bed mobility and transfer training, balance and endurance training, functional strengthening, gait training, and education. Patient has made poor progress and is being discharged to ICU today. Now, patient performs transfers and ambulation for about 150' with a rolling walker with standby assist or setup. Patient will be discharged from PT at this time. Occupational Therapy Decreased Activ Tolerance, Decreased UE Strength, Dependent Transfers, Edema, Impaired I ADL's, Impaired Self-Care Skills PT Skilled Nursing Goals Hypercil Core Transformer Assembler Goals PT Hypercil Core Transformer Assembler Goals Time Frame: Jan 18, 2020 Roll Left to Right (QC): 6 Sit to Lying (QC): 6 Lying-Sitting on Side/Bed(QC): 6 Sit to Stand (QC): 6 Chair/Sdl-lf-Atthu Xfer(QC): 6 Car Transfer (QC): 6 Does the Patient Walk: Yes Walk 10 feet (QC): 6 Walk 10ft-Uneven Surface(QC): 5 Walk 50ft with 2 Turns (QC): 6 Walk 150 ft (QC): 6 Does the Pt use WC or Scooter?: No 1 Step (curb) (QC): 5 4 Steps (QC): 5 12 Steps (QC): 9 Picking up an Object (QC): 4 OT Hypercil Core Transformer Assembler Goals Skilled Nursing Goals Time Frame: Jan 11, 2020 Eating (FIM): 6 Eating (QC): 6 (met) Oral Hygiene (QC): 6 Shower/Bathe Self (QC): 6 Upper Body Dressing (QC): 6 Lower Body Dressing (QC): 6 On/Off Footwear (QC): 6 (met) Toileting(FIM): 6 Toileting Hygiene (QC): 6 Toilet/Commode Transfer (QC): 6 Additional Goals: 1-Demonstrate ADL Tasks, 2-Verbalize Understanding, 3-ImproveStrength/Monica 1=Demonstrate adherence to instructed precautions during ADL tasks. 2=Patient will verbalize/demonstrate understanding of assistive devices/modifications for ADL. 3=Patient will improve strength/tolerance for activity to enable patient to perf orm ADL's. DUSTY GERARD PT Jan 04, 2020 10:59
--- NOTE | 2020-01-04 11:10 | NUR ---
CM/SS Patient was transferred to medical acute due to change in status and condition. Discharge to home cancelled. Visited with daughter Sadie as a support regarding this unexpected circumstance.
== END 2020-01-04 10:30 | disposition short-term general hospital (02) | DRG 872 ==
PROVIDERS: ADMIT Internal Medicine; ATTEND Internal Medicine
DX: A41.51 Sepsis due to Escherichia coli [E. coli] (principal); N39.0 Urinary tract infection, site not specified; R53.1 Weakness; R53.81 Other malaise; R29.6 Repeated falls; N17.9 Acute kidney failure, unspecified; E87.2 Acidosis; D59.1 Other autoimmune hemolytic anemias; Z66 Do not resuscitate; R25.1 Tremor, unspecified; R13.10 Dysphagia, unspecified; E87.5 Hyperkalemia; I12.9 Hypertensive chronic kidney disease with stage 1 through stage 4 chronic kidney disease, or unspecified chronic kidney disease; N18.9 Chronic kidney disease, unspecified; I25.10 Atherosclerotic heart disease of native coronary artery without angina pectoris; K29.70 Gastritis, unspecified, without bleeding; J44.9 Chronic obstructive pulmonary disease, unspecified; K44.9 Diaphragmatic hernia without obstruction or gangrene; R09.02 Hypoxemia; G47.33 Obstructive sleep apnea (adult) (pediatric); G62.9 Polyneuropathy, unspecified; F41.8 Other specified anxiety disorders; R33.9 Retention of urine, unspecified; E78.5 Hyperlipidemia, unspecified; M47.9 Spondylosis, unspecified; Z95.5 Presence of coronary angioplasty implant and graft; Z87.891 Personal history of nicotine dependence; Z90.49 Acquired absence of other specified parts of digestive tract
CPT/HCPCS: 36415; 70450; 80053; 81000; 83735; 83880; 84100; 85025; 87077; 87088; 87186; 94640; 94760; 94761

== ENCOUNTER 2020-01-04 09:02 | Inpatient (IN) | payer MEDICARE ==
[~2020-01-04] VITALS: Ht 152.4 cm; Wt 76.9 kg
[~2020-01-04 09:02] MED LIST changes: +AMOX500C2 PO; +BACL10TA PO; +LORAZ30SOL PO; +MORP100S3 PO; +TMSL.4C PO
[2020-01-04] MEDS ORDERED: NS IV 1000 ML 1,000 ML IV SCH (09:14)
[2020-01-04 10:45] VITALS: BP 133/56
--- NOTE | 2020-01-04 10:55 | Pulmonary Consultation ---
History of Present Illness History of Present Illness Date Seen by Provider: Jan 04, 2020 Time Seen by Provider: 10:49 Date of Admission Allergies and Home Medications Allergies Coded Allergies: codeine (Verified Allergy, Mild, 12/25/19) Home Medications Albuterol Sulfate 18 Gm Hfa.aer.ad, 2 PUFF INH Q4H PRN for SHORTNESS OF BREATH, (Reported) Alprazolam 0.25 Mg Tablet, 0.25 MG PO TID PRN for ANXIETY, (Reported) Amlodipine Besylate 5 Mg Tablet, 7.5 MG PO DAILY, (Reported) TAKES 1 & 1/2 (5MG) TABLET Amoxicillin 500 Mg Capsule, 500 MG PO Q12HR Prescribed by: TAHIR MARTINEZ on 01/04/20602 Aspirin 81 Mg Tablet.dr, 81 MG PO DAILY, (Reported) Baclofen 10 Mg Tablet, 5 MG PO TID Prescribed by: TAHIR MARTINEZ on 01/04/20602 Fexofenadine HCl 180 Mg Tablet, 180 MG PO DAILY PRN for ALLERGIES, (Reported) Fluticasone/Umeclidin/Vilanter 1 Each Blst.w.dev, 1 PUFF INH DAILY, (Reported) Hydrocodone/Acetaminophen 1 Each Tablet, 1 TAB PO BID PRN for PAIN-MODERATE (5- 7), (Reported) Hydroxyzine HCl 25 Mg Tablet, 25 MG PO Q6H PRN for ITCHING, (Reported) Lorazepam 2 Mg/1 Ml Oral.conc, 0.5 MG PO Q4H Prescribed by: TAHIR MARTINEZ on 01/04/20602 Losartan Potassium 50 Mg Tablet, 50 MG PO DAILY, (Reported) Methyl Salicylate/Menthol 1 Each Adh..patch, 1 PATCH TP HS, (Reported) Montelukast Sodium 10 Mg Tablet, 10 MG PO HS, (Reported) Morphine Sulfate 100 Mg/5 Ml Solution, 5 MG PO Q4H PRN for PAIN-SEVERE (8-10) Prescribed by: TAHIR MARTINEZ on 01/04/20602 Ondansetron 4 Mg Tab.rapdis, 4 MG PO Q4H PRN for NAUSEA/VOMITING-1ST LINE, (Reported) Pantoprazole Sodium 40 Mg Tablet.dr, 40 MG PO DAILY, (Reported) Pravastatin Sodium 20 Mg Tablet, 20 MG PO DAILY, (Reported) Ranitidine HCl 150 Mg Tablet, 150 MG PO BID PRN for ACID REFLUX, (Reported) Sucralfate 1 Gm Tablet, 1 GM PO ACHS Prescribed by: TAHIR MARTINEZ on 01/04/20 06 Tamsulosin HCl 0.4 Mg Cap, 0.4 MG PO DAILY@1800 Prescribed by: TAHIR MARTINEZ on 01/04/20 06 Tramadol HCl 50 Mg Tablet, 50 MG PO Q4H PRN for PAIN-MODERATE (5-7), (Reported) Past Dnhvovk-Pzdjdx-Agqzcu Hx Patient Social History Type Used: Cigarettes Former Smoker, Quit: Mar 08, 1980 2nd Hand Smoke Exposure: No Recent Foreign Travel: No Contact w/Someone Who Travel: No Recent Hopitalizations: No Immunizations Up To Date Tetanus Booster (TDap): Unknown PED Vaccines UTD: No Date of Pneumonia Vaccine: Apr 22, 2019 Date of Influenza Vaccine: Aug 22, 2019 Seasonal Allergies Seasonal Allergies: No Past Medical History Surgeries: Yes (LAP MIGUEL ANGEL FUNDOPLICATION;EGD'S;BILAT CATARACTS;BILATERAL TKR;CATH-STENT X1) Appendectomy, Bowel Surgery, Cardiac, Coronary Stent, Gallbladder, Joint Replacement, Orthopedic Respiratory: Yes (ASTHMA) Asthma, COPD Currently Using CPAP: Yes (AT HS) Currently Using BIPAP: No Cardiac: Yes (CARDIAC CATH-STENT X 1; CHF) Chronic Edema/Swelling, Coronary Artery Disease, High Cholesterol, Hypertension Neurological: No Neuropathy Reproductive Disorders: No (HAD 9 CHILDREN) Female Reproductive Disorders: Denies Sexually Transmitted Disease: No HIV/AIDS: No Genitourinary: Yes (CHRONIC RENAL FAILURE/INSUFFICIENCY) Renal Failure Gastrointestinal: Yes (EGD'S-LAST ONE 07/2019; LAP MIGUEL ANGEL FUNDOPLICATION; CHRONIC GASTRITIS;) Gastroesophageal Reflux, Hiatal Hernia, Ulcer Musculoskeletal: Yes (OSTEOARTHRITIS; BILAT TKR; CHRONIC BILAT TORN ROTATOR CUFFS) Degenerate Disk Disease, Arthritis, Chronic Back Pain Endocrine: No Cataract Loss of Vision: Denies Hearing Impairment: Hard of Hearing Cancer: No Psychosocial: No Integumentary: Yes Eczema Blood Disorders: Yes (CHRONIC ANEMIA--HGB IN 8'S NORMALLY) Adverse Reaction/Blood Tranf: No Family Medical History Abdominal aortic aneurysm 19 FATHER Aphasia G8 SISTER Arthritis 19 MOTHER Cardiovascular disease 19 MOTHER G8 BROTHER Completed stroke G8 SISTER Deafness or hearing loss 19 MOTHER Dementia 19 MOTHER Gastroenteritis 19 MOTHER Hypertension 19 MOTHER G8 SISTER Myocardial infarction G8 BROTHER Psychosocial problem G8 SISTER Respiratory disorder 19 MOTHER G8 BROTHER Thyroid disease G8 BROTHER No Family History of: AIDS [place]'s disease Alcoholism Alzheimer's disease Asthma Cancer of mouth Cataracts Colon cancer Congenital disease Congenital heart disease Coronary thrombosis Cystic fibrosis Diabetes mellitus Drug abuse Dysphasia Fibrocystic disease of breast Glaucoma Headache disorder Hypercholesterolemia Infertility Kidney disease Neoplasm Not obtainable due to adoption Osteoporosis Parkinson's disease Prostate cancer Seizure disorder Severe allergy Tuberculosis Visual disorder No Pertinent Family Hx Review of Systems Time Seen by Provider: 10:56 Sepsis Event Evaluation Height, Weight, BMI Height: 5'0" Weight: 160lbs. 0.0oz. [id number]; 35.05 BMI Method:Stated Exam Exam Height & Weight Height: 5'0" Weight: 160lbs. 0.0oz. [id number]; 35.05 BMI Method:Stated General Appearance: No Apparent Distress HEENT: PERRL/EOMI, Pharynx Normal Neck: Full Range of Motion, Non Tender, Supple Respiratory: No Accessory Muscle Use, No Respiratory Distress, Decreased Breath Sounds Cardiovascular: Regular Rate, Rhythm, No Edema Capillary Refill: Less Than 3 Seconds Gastrointestinal: normal bowel sounds, non tender, soft Extremity: Normal Capillary Refill, No Pedal Edema Neurologic/Psychiatric: Depressed Affect, Disoriented Skin: Normal Color, Warm/Dry Lymphatic: No Adenopathy Assessment/Plan Assessment/Plan Sepsis with UTI and Urinary retention -Bladder scan shows over 700cc of urine -Place Bond MS changes -PT transferred to ICU from rehab secondary worsening lethargy -Dr. Moody believes MS changes are secondary to HTN. He is actively managing HTN -ICU monitoring LE muscle spasams -Pt is on baclofen anemia -- -Monitor -Hold anticoagulation S/p recent fall -Fall precautions OMID -has home cpap Hx copd/asthma hypoxemia CAD with hx of stent placement to LAD Hypertension KATHY VILLALTA DO Jan 04, 2020 10:55
[2020-01-04] MEDS ORDERED: MINERAL OIL ENEMA 133 ML BTL PR PRN (11:15)
[2020-01-04] MEDS ORDERED: BISACODYL 10 MG SUPP (DULCOLAX) PR PRN (11:15)
[2020-01-04] MEDS ORDERED: ONDANSETRON 4 MG/2 ML (SDV) Z0FRAN IVP PRN (11:30)
--- NOTE | 2020-01-04 11:30 | History & Physical-Hospitalist ---
History of Present Illness HPI/Chief Complaint CC: AMS transferred from [facility] HPI: Hospital course: Pt had a lengthy hospital course in inpatient rehab after sepsis and UTI. She did have more and more complications during her hospital course including tremors of unknown source and they were witnessed and it appeared to be more of a pseudoseizure type of situation. She ultimately became more and more complicated requiring a transfer to the ICU to rule out stroke and sepsis. Pt even had another UTI after Rocephin discontinued and completed treatment after one day and repeat urine culture was Enterococcus so Amoxil had been placed on board but overall Pt has had such a declined status requiring more and more aggressive treatment, she remains DNR and poor prognosis was assessed the night she was admitted to begin with so will provide supportive care and appreciate Dr. Nunez and Dr. Moody's consultation expertise. Source: RN/ Exam Limitations: clinical condition Date Seen 01/04/20 Time Seen by a Provider: 10:30 Attending Physician Halle Martinez DO PCP Halle Martinez DO Referring Physician Date of Admission Jan 04, 2020 at 10:30 Home Medications & Allergies Home Medications Reviewed patient Home Medication Reconciliation performed by pharmacy medication reconciliations ct scan technician and/or nursing. Patients Allergies have been reviewed. Allergies Allergies Coded Allergies codeine (Verified Allergy, Mild, 12/25/19) Past Forqtoj-Nyohqm-Isusyj Hx Past Med/Social Hx: Reviewed Nursing Past Med/Soc Hx, Reviewed and Corrections made Patient Social History Marrital Status: Alcohol Use: Denies Use Smoking Status: Former Smoker Former Smoker, Quit: Mar 08, 1980 Type Used: Cigarettes 2nd Hand Smoke Exposure: No Recent Foreign Travel: No Contact w/other who traveled: No Recent Hopitalizations: No Immunizations Up To Date Tetanus Booster (TDap): Unknown Pediatric: No Date of Pneumonia Vaccine: Apr 22, 2019 Date of Influenza Vaccine: Aug 22, 2019 Seasonal Allergies Seasonal Allergies: No Past Medical History Surgeries: Appendectomy, Bowel Surgery, Cardiac, Coronary Stent, Gallbladder, Joint Replacement, Orthopedic Respiratory: Asthma, COPD, Pneumonia, Sleep Apnea Currently Using CPAP: Yes (AT HS) Currently Using BIPAP: No Cardiac: Chronic Edema/Swelling, Coronary Artery Disease, High Cholesterol, Hypertension Neurological: Neuropathy Reproductive: No (HAD 9 CHILDREN) Sexually Transmitted Disease: No HIV/AIDS: No Female Reproductive Disorders: Denies Genitourinary: Renal Failure Gastrointestinal: Gastroesophageal Reflux, Hiatal Hernia, Ulcer Musculoskeletal: Degenerate Disk Disease, Arthritis, Chronic Back Pain HEENT: Cataract Loss of Vision: Denies Hearing Impairment: Hard of Hearing Skin/Integumentary: Eczema History of Blood Disorders: Yes (CHRONIC ANEMIA--HGB IN 8'S NORMALLY) Adverse Reaction to Blood Christensen: No Family History Abdominal aortic aneurysm 19 FATHER Aphasia G8 SISTER Arthritis 19 MOTHER Cardiovascular disease 19 MOTHER G8 BROTHER Completed stroke G8 SISTER Deafness or hearing loss 19 MOTHER Dementia 19 MOTHER Gastroenteritis 19 MOTHER Hypertension 19 MOTHER G8 SISTER Myocardial infarction G8 BROTHER Psychosocial problem G8 SISTER Respiratory disorder 19 MOTHER G8 BROTHER Thyroid disease G8 BROTHER No Family History of: AIDS [place]'s disease Alcoholism Alzheimer's disease Asthma Cancer of mouth Cataracts Colon cancer Congenital disease Congenital heart disease Coronary thrombosis Cystic fibrosis Diabetes mellitus Drug abuse Dysphasia Fibrocystic disease of breast Glaucoma Headache disorder Hypercholesterolemia Infertility Kidney disease Neoplasm Not obtainable due to adoption Osteoporosis Parkinson's disease Prostate cancer Seizure disorder Severe allergy Tuberculosis Visual disorder No Pertinent Family Hx Review of Systems Constitutional: see HPI, dizziness, malaise, weakness Psychiatric/Neurological: Anxiety, Depressed Physical Exam Physical Exam Vital Signs Vital Signs - First Documented 01/04/20 01/04/20 01/04/20 10:30 10:45 15:34 Temp 37.4 Pulse 70 Resp 15 B/P (MAP) 133/56 (81) Pulse Ox 94 O2 Delivery Nasal Cannula O2 Flow Rate 2.00 Capillary Refill : Less Than 3 Seconds Height, Weight, BMI Height: 5'0" Weight: 160lbs. 0.0oz. 72.235750dj; 35.05 BMI Method:Stated General Appearance: Anxious, Chronically ill, Mild Distress, Obese Eyes: Right Eye Normal Inspection, Right Eye PERRL HEENT: PERRL/EOMI, Normal ENT Inspection, Pharynx Normal, Moist Mucous Membranes Neck: Full Range of Motion, Normal Inspection, Non Tender Respiratory: Chest Non Tender, Lungs Clear, Normal Breath Sounds, No Accessory Muscle Use, No Respiratory Distress Cardiovascular: Regular Rate, Rhythm, No Edema, No Gallop, No JVD, No Murmur, Normal Peripheral Pulses Gastrointestinal: Normal Bowel Sounds, No Organomegaly, No Pulsatile Mass, Non Tender, Soft Back: Normal Inspection, No CVA Tenderness, No Vertebral Tenderness Extremity: Normal Capillary Refill, Normal Inspection, Normal Range of Motion, Non Tender, No Calf Tenderness, No Pedal Edema Neurologic/Psychiatric: Alert, No Motor/Sensory Deficits, college scouting coordinator II-XII Norm as Tested, Depressed Affect, Disoriented Skin: Normal Color, Warm/Dry Lymphatic: No Adenopathy Results Results/Procedures Labs Laboratory Tests 01/04/20 11:40 Patient resulted labs reviewed. Assessment/Plan Admission Diagnosis Assessment: AMS Possible sepsis due to Enterococcus UTI placed on Amoxil yesterday rechecking urine again Severe and rapid debility failed inpatient rehab and transferred to ICU today Tremors versus pseudoseizures I have witnessed GERD CRI Anemia Transfusion 1 week ago DJD of spine HTN Plan: ICU Appreciate DR Nunez and DR Moody Admission Status: Inpatient Order (span 2 midnights) Reason for Inpatient Admission: AMS with elevated BP Diagnosis/Problems Diagnosis/Problems (1) AMS (altered mental status) (2) UTI (urinary tract infection) (3) History of coronary artery stent placement Status: Chronic (4) Chronic anemia Status: Chronic (5) Chronic renal insufficiency Status: Chronic (6) Debility (7) Situational anxiety Status: Acute (8) Radiculopathy (9) Neuropathy Status: Acute (10) Hyperlipidemia Status: Chronic (11) Gastritis Status: Acute (12) Dysphagia (13) CAD (coronary artery disease) (14) Gout Status: Chronic (15) COPD (chronic obstructive pulmonary disease) Status: Chronic (16) Sepsis Status: Acute (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
--- NOTE | 2020-01-04 11:47 | Progress Note ---
KILO RODRIGUEZ, MEDICAL STUDENT 01/04/20 1147: Progress Note 01/04/20 Patient seen 8:30 AM 89 YO F who was originally admitted for UTI and mental status changes who presents with new onset shaking of the extremities since she has been admitted. The patient's daughter explained that these episodes most recently happened wednesday and she had 3 episodes over the course of 2 hours. During these episodes the daughter described the patient as having shaking of both upper extremities and lower extremities. During these episodes the patient is completely coherent and is able to speak and respond to people. She is also aware of what is happening. She has never had incontinence associated with these episodes. Immediately after she sometimes falls asleep and other times returns to baseline. The patient has no history of seizures or stroke. Of note the patient often moves her lower extremities in a shaking pattern, which is why she was started on baclofen. At the moment, suspicion for seizures is low and these episodes are more likely pseudoseizures. The patient has been dealing with the passing one of her daughters and has reason to want to be close to her family. PE: CV: RRR, no murmurs rubs or gallops. Pulm: Clear to auscultation bilaterally Neuro: Patient was difficult to arouse and was unable to participate in a Neuro exam Continue inpatient rehab and antibiotic course Consider Trial of Ropinerole for restless leg syndrome if patient's leg movements become bothersome enough to warrant treatment HALLE MARTINEZ DO 01/04/202058: Supervisory-Addendum Brief Verification & Attestation Participated in pt care: history, MDM, physical Personally performed: exam, history, MDM, supervision of care Care discussed with: Medical Student Procedures: n/a Results interpretation: Verified all documentation Verification and Attestation of Medical Student E/M Service A medical student performed and documented this service in my presence. I reviewed and verified all information documented by the medical student and made modifications to such information, when appropriate. I personally performed the physical exam and medical decision making. Halle Martinez, Jan 04, 2020,20:58 KILO RODRIGUEZ, MEDICAL STUDENT Jan 04, 2020 11:47 HALLE MARTINEZ DO Jan 04, 2020 20:59
[2020-01-04 11:57] LABS: BILIRUBIN,URINE NEGATIVE (NEGATIVE); CLARITY,URINE CLEAR; COLOR,URINE YELLOW; GLUCOSE, URINE (UA) NEGATIVE (NEGATIVE); KETONES,URINE NEGATIVE (NEGATIVE); LEUKOCYTE ESTERASE ,URINE NEGATIVE (NEGATIVE); NITRITE,URINE NEGATIVE (NEGATIVE); PH,URINE 6.5 (5-9); PROTEIN,URINE 1+ (NEGATIVE)
[2020-01-04 11:58] LABS: BASOPHILS % (AUTO) 1 % (0-10); EOSINOPHILS # (AUTO) 0.1 10^3/uL (0.0-0.3); EOSINOPHILS % (AUTO) 2 % (0-10); HEMATOCRIT 29 % (35-52); HEMOGLOBIN 8.9 G/DL (11.5-16.0); LYMPHOCYTES # (AUTO) 1.5 X 10^3 (1.0-4.0); LYMPHOCYTES % (AUTO) 20 % (12-44); MEAN CORPUSCULAR HEMOGLOBIN 27 PG (25-34); MEAN CORPUSCULAR HGB CONC 31 G/DL (32-36); MEAN CORPUSCULAR VOLUME 89 FL (80-99); MEAN PLATELET VOLUME 9.7 FL (7.4-10.4); MONOCYTES # (AUTO) 0.5 X 10^3 (0.0-1.0); MONOCYTES % (AUTO) 7 % (0-12); NEUTROPHILS # (AUTO) 5.3 X 10^3 (1.8-7.8); NEUTROPHILS % (AUTO) 71 % (42-75); PLATELET COUNT 514 10^3/uL (130-400); WHITE BLOOD COUNT 7.5 10^3/uL (4.3-11.0)
[2020-01-04 12:00] VITALS: BP 179/73
[2020-01-04 12:18] LABS: BILIRUBIN,TOTAL 0.5 MG/DL (0.1-1.0); CALCIUM 9.4 MG/DL (8.5-10.1); CREATININE SERUM 1.51 MG/DL (0.60-1.30); MAGNESIUM 2.6 MG/DL (1.6-2.4); POTASSIUM 4.6 MMOL/L (3.6-5.0); TOTAL PROTEIN 7.3 GM/DL (6.4-8.2)
[2020-01-04 12:23] LABS: PROTHROMBIN TIME PATIENT 13.2 SEC (12.2-14.7)
[2020-01-04 12:23] LABS: BACTERIA,URINE NEGATIVE /HPF; WBC,URINE RARE /HPF
[2020-01-04 13:00] VITALS: BP 133/44
[2020-01-04] MEDS: NITROGLYCERIN 2% OINT 1 GM UNIT DOSE PACKET TOP SCH ×6 (15:14→22:56)
--- NOTE | 2020-01-04 15:30 | Diagnostic Imaging Report ---
INDICATION: Shortness of breath. COMPARISON: Chest radiograph performed concurrently. FINDINGS: Nonobstructive bowel gas pattern. A small volume of stool is present in the right hemicolon, likely physiologic. No features of free intraperitoneal air, though assessment is limited by supine imaging. Mild degenerative changes in the lumbar spine. IMPRESSION: 1. Nonobstructive bowel gas pattern. 2. No features of free intraperitoneal air. Dictated by: Dictated on workstation # [id number]
[2020-01-04] MEDS: NS IV 1000 ML 1,000 ML IV SCH ×3 (15:32→23:31)
[2020-01-04] MEDS: AMPICILLIN FOR IV USE 1,000 MG in WATER (STERILE) FOR INJECTION 7.4 ML IV SCH ×3 (15:33→22:16)
--- NOTE | 2020-01-04 15:33 | Diagnostic Imaging Report ---
EXAMINATION: Supine AP chest at 3:23 p.m. INDICATION: Shortness of breath. FINDINGS: The heart size is borderline enlarged but stable when compared to 12/28/2019. However, the pulmonary congestion and the right lower lobe pneumonia/atelectasis seen on the prior study have essentially resolved. The lungs are otherwise clear. The mediastinum is not widened. The osseous structures are intact. IMPRESSION: The appearance of the chest has improved since the prior exam as the pulmonary congestion seen on the prior study has resolved and the right lung base seems much better aerated. There is no evidence for active disease at this time. Dictated by: Dictated on workstation # [id number]
--- NOTE | 2020-01-04 15:34 | Diagnostic Imaging Report ---
CLINICAL INDICATION: Patient with mental status started this morning. EXAM: Axial CT scan of the brain without IV contrast with coronal reformatted images. Auto Exposure Controls were utilized during the CT exam to meet ALARA standards for radiation dose reduction. All CT scans use one or more of the following dose optimizing techniques: automated exposure control, MA and/or KvP adjustment based on patient size and exam type or iterative reconstruction. COMPARISON: Head CT without contrast dated 12/30/2019. FINDINGS: There is motion artifact which limits evaluation of some portion of this exam. There is no evidence of acute cerebral infarct, intracranial hemorrhage, or gross mass effect. The brain parenchymal volume appears appropriate for patient's age. There are patchy and focal areas of low-attenuation white matter changes involving both cerebral hemispheres which has not grossly changed in the interim. There is normal harry-white matter distinction. There is no significant midline shift or herniation. There is no evidence of hydrocephalus. The basal cisterns are unremarkable. The skull, extracranial soft tissue, and orbits are unremarkable. The paranasal sinuses are unremarkable. Temporal bones show no significant abnormality. IMPRESSION: 1: There is motion artifact which limits evaluation of anatomical detail. 2: Stable CT scan of the brain with no evidence of interval acute intracranial process. If there is continued concern for acute cerebral infarct, then MRI of the brain would better evaluate. 3: There are age-related brain parenchymal changes with chronic small vessel ischemic disease and brain parenchymal volume loss. Results of this report were discussed with Mallorie nurse working with patient in the ICU, via the telephone on 01/04/2020 at 1528 hours. Dictated by: Dictated on workstation # [id number]
[2020-01-04 16:00] VITALS: BP 139/53
--- NOTE | 2020-01-04 16:09 | Cardiology Progress Note ---
Subjective Date Seen by Provider: Jan 04, 2020 Time Seen by Provider: 16:03 Subjective/Events-last exam Patient was seen in the morning, was thrashing, moving her extremities, not responding to verbal stimuli, answered by EMS to pain but did not identify where she is having the pain. No shortness of breath, was hypertensive initially, blood pressure is better. She was transferred to the intensive care unit, currently blood pressure is better, still moving her upper and lower extremities, trying to follow command, not verbal, not able to communicate. Review of Systems General: Other (Anxious. Unable to provide review of systems) Focused Exam Lactate Level 01/04/20 11:40: Lactic Acid Level 0.62 Objective-Cardiology Exam Last Set of Vital Signs Vital Signs 01/04/20 01/04/20 10:45 13:00 Pulse 63 Resp 15 B/P (MAP) 133/44 (73) Pulse Ox 99 O2 Delivery Room Air Capillary Refill : Less Than 3 Seconds General: Alert, Moderate Distress, Other (Unable to follow commands or respond to any question) HEENT: Atraumatic Neck: Supple, No JVD Lungs: Clear to Auscultation, Normal Air Movement Heart: Regular Rate, Normal S1, Normal S2 Abdomen: Normal Bowel Sounds, No Tenderness Extremities: No Clubbing, No Cyanosis Skin: No Rashes Neuro: Other (Does not answer any question, able to move her extremities) Psych/Mental Status: Other (Does not respond to any questions) Results Lab Laboratory Tests 01/04/20 11:40 A/P-Cardiology Admission Diagnosis Change in mental status Coronary artery disease Hypertension UTI Assessment/Plan Acute change in mental status, questionable secondary to acute ischemic event or hypertensive encephalopathy, no improvement. CT scan of the head was done without contrast did not show any acute abnormality, recommended MRI of the head, cannot tolerate MRI at this time. Continue with aspirin and monitor tolerance and response. Urinary tract infection, receiving antibiotics and managed by medical team Anemia, cold agglutinin disease, received blood transfusion with warm blood, continue to monitor H/H. Dr. Tucker following. Mild elevation in troponin, subtle abnormality, known to have stent in the LAD, last workup was done in March 2013 showing patent stent in the proximal VG with mild in-stent restenosis, mild to moderate disease in the mid LAD and mid circumflex artery. Had an abnormal stress test in the past and has been refusing cardiac catheterization. Continue with conservative management at this time. Chest pain, generalized body ache, history of [id number] coronary artery disease, no further episodes of chest pain were reported. Continue to monitor Dyspnea, history of bronchial asthma, history of C Pap use, normoactive shortness of breath noted that this time History of gastroesophageal reflux disease, esophagitis, mild dysphagia, esophageal spasm, managed by primary care team Hypertension, labile blood pressure, was significantly elevated earlier in the morning. Currently blood pressure is mildly elevated. Continue to monitor History of hyperlipidemia, monitor lipids Moderate carotid stenosis tortuous carotids by ultrasound, continue to monitor Acute on chronic renal failure, improving slowly, continue to monitor. Back pain, currently on Baclofen TID Clinical Quality Measures DVT/VTE Risk/Contraindication: Risk Factor Score Per Nursin RFS Level Per Nursing on Admit: 4+=Very High ELO HOLBROOK MD Jan 04, 2020 16:09
[2020-01-04 17:00] VITALS: BP 104/41
[2020-01-04] MEDS: PANTOPRAZOLE 40 MG (PROTONIX) TAB PO SCH (17:00)
[2020-01-04] MEDS: ASPIRIN E.C. 81 MG (ECOTRIN) TAB PO SCH (17:00)
[2020-01-04] MEDS ORDERED: RT-ALBUTEROL/IPRATROPIUM 3 ML (DUONEB) VIAL INH PRN (18:00)
[2020-01-04] MEDS: ENOXAPARIN 30 MG/0.3 ML (LOVENOX) SYR SC SCH (18:09)
--- NOTE | 2020-01-04 19:14 | NUR ---
PT HAD AMPICILLIN SCHEDULED FOR 1300. UNABLE TO ADMINISTER UNTIL 1530. THIS RN CONTACTED PHARMACY REQUEST NEXT DOSE BE RETIMED DUE TO FREQUENCY OF Q6. SECONDARY ORDER WAS ENTERED TO BE ADMINISTERED EARLIER. THIS RN CANCELLED ORDER DUPLICATE AND PASSED ALONG IN REPORT OF WHEN NEXT DOSE OF AMPICILLIN WOULD BE DUE.
[2020-01-04] MEDS ORDERED: AMPICILLIN FOR IV USE 1,000 MG in WATER (STERILE) FOR INJECTION 7.4 ML IV SCH (19:30)
[2020-01-04 20:00] VITALS: BP 178/77
[2020-01-04] MEDS ORDERED: ACETAMINOPHEN 650 MG SUPP (TYLENOL) PR PRN (20:30)
[2020-01-04] MEDS ORDERED: LACTULOSE SYRUP 10GM/15ML (ENULOSE) 30ML UDC PO SCH (21:00)
[2020-01-04] MEDS ORDERED: RT-ALBUTEROL/IPRATROPIUM 3 ML (DUONEB) VIAL INH SCH (21:00)
[2020-01-05] VITALS (8 sets, daily range): BP systolic 137–186; BP diastolic 61–82
[2020-01-05] MEDS ORDERED: AMPICILLIN FOR IV USE 1,000 MG in WATER (STERILE) FOR INJECTION 7.4 ML IV SCH ×2
[2020-01-05] MEDS: NITROGLYCERIN 2% OINT 1 GM UNIT DOSE PACKET TOP SCH ×2 (01:27→03:49)
--- NOTE | 2020-01-05 01:27 | NUR ---
NITROBID NOT APPLIED D/T NITROBID ALREADY ON RT CHEST. NITROBID PLACED TO RT CHEST AT 2254 01/04/2020.
--- NOTE | 2020-01-05 02:41 | NUR ---
THIS RN CALLED DR. COOK TO NOTIFY HER OF PT HTN. NEW ORDERS OBTAINED, SEE ORDER HX.
[2020-01-05] MEDS ORDERED: meTOprolol 5 MG/5 ML (LOPRESSOR) VIAL IV PRN (02:45)
[2020-01-05] MEDS ORDERED: meTOprolol 5 MG/5 ML (LOPRESSOR) VIAL ONE (02:49)
[2020-01-05] MEDS: AMPICILLIN FOR IV USE 1,000 MG in WATER (STERILE) FOR INJECTION 7.4 ML IV SCH ×4 (03:49→21:55)
[2020-01-05 03:56] LABS: BASOPHILS % (AUTO) 0 % (0-10); EOSINOPHILS # (AUTO) 0.2 10^3/uL (0.0-0.3); EOSINOPHILS % (AUTO) 2 % (0-10); HEMATOCRIT 27 % (35-52); HEMOGLOBIN 8.5 G/DL (11.5-16.0); LYMPHOCYTES % (AUTO) 20 % (12-44); MEAN CORPUSCULAR HEMOGLOBIN 27 PG (25-34); MEAN CORPUSCULAR HGB CONC 31 G/DL (32-36); MEAN CORPUSCULAR VOLUME 88 FL (80-99); MEAN PLATELET VOLUME 9.4 FL (7.4-10.4); MONOCYTES # (AUTO) 0.7 X 10^3 (0.0-1.0); MONOCYTES % (AUTO) 7 % (0-12); NEUTROPHILS % (AUTO) 70 % (42-75); PLATELET COUNT 506 10^3/uL (130-400)
[2020-01-05 04:17] LABS: ALANINE AMINOTRANSFERASE 14 U/L (0-55); ALBUMIN 3.6 GM/DL (3.2-4.5); ALKALINE PHOSPHATASE 146 U/L (40-136); BILIRUBIN,TOTAL 0.5 MG/DL (0.1-1.0); BUN/CREATININE RATIO 13; CALCIUM 8.8 MG/DL (8.5-10.1); CARBON DIOXIDE 21 MMOL/L (21-32); CHLORIDE 109 MMOL/L (98-107); CHOLESTEROL 128 MG/DL (< 200); CREATININE SERUM 1.34 MG/DL (0.60-1.30); GFR ESTIMATED 37; GLUCOSE 89 MG/DL (70-105); HDL CHOLESTEROL 38 MG/DL (40-60); POTASSIUM 4.1 MMOL/L (3.6-5.0); SODIUM 141 MMOL/L (135-145); TOTAL PROTEIN 6.5 GM/DL (6.4-8.2); TRIGLYCERIDES 101 MG/DL (<150); VLDL CHOLESTEROL 20 MG/DL (5-40)
--- NOTE | 2020-01-05 04:57 | Pulmonary Progress Note ---
Subjective Time Seen by a Provider: 05:16 Subjective/Events-last exam Pt is more awake having trouble speaking Sepsis Event Evaluation Height, Weight, BMI Height: 5'0" Weight: 160lbs. 0.0oz. 72.083767gj; 32.85 BMI Method:Stated Focused Exam Lactate Level 01/04/20 11:40: Lactic Acid Level 0.62 Exam Exam Vital Signs Date Time Temp Pulse Resp B/P (MAP) Pulse Ox O2 Delivery O2 Flow Rate FiO2 01/05/20 04:18 37.0 01/05/20 04:05 Room Air 01/05/20 00:27 Room Air 01/05/20 00:26 37.4 01/04/20 21:00 Room Air 01/04/20 20:00 72 14 178/77 (110) 93 Room Air 01/04/20 20:00 Room Air 01/04/20 19:23 37.6 01/04/20 19:00 80 01/04/20 18:46 92 Room Air 01/04/20 17:00 71 13 104/41 (62) 91 Room Air 01/04/20 16:00 Nasal Cannula 2.00 01/04/20 16:00 80 24 139/53 (81) 92 Room Air 01/04/20 15:34 37.4 01/04/20 13:00 63 133/44 (73) 99 Room Air 01/04/20 12:25 64 01/04/20 12:00 63 179/73 (108) 97 Nasal Cannula 2.00 01/04/20 12:00 Nasal Cannula 2.00 01/04/20 11:44 69 01/04/20 10:45 70 15 133/56 (81) 94 Nasal Cannula 2.00 01/04/20 10:30 94 Nasal Cannula 2.00 I & O 01/05/20 07:00 Intake Total 7.4 ml Output Total 950 ml Balance -942.6 ml Height & Weight Height: 5'0" Weight: 160lbs. 0.0oz. 72.402154kh; 32.85 BMI Method:Stated General Appearance: Anxious, Chronically ill, Mild Distress, Obese HEENT: PERRL/EOMI, Normal ENT Inspection, Pharynx Normal, Moist Mucous Membranes Neck: Full Range of Motion, Normal Inspection, Non Tender Respiratory: Chest Non Tender, Lungs Clear, Normal Breath Sounds, No Accessory Muscle Use, No Respiratory Distress Cardiovascular: Regular Rate, Rhythm, No Edema, No Gallop, No JVD, No Murmur, Normal Peripheral Pulses Capillary Refill: Less Than 3 Seconds Gastrointestinal: normal bowel sounds, non tender, soft Extremity: Normal Capillary Refill, Normal Inspection, Normal Range of Motion, Non Tender, No Calf Tenderness, No Pedal Edema Neurologic/Psychiatric: Alert, No Motor/Sensory Deficits, 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 -ICU monitoring -Speech therapy to eval HTN -Start PO lopressor, norvasc -PRN hydralazine LE muscle spasams -all sedation meds are currently on hold anemia -- -Monitor -Hold anticoagulation S/p recent fall -Fall precautions OMID -has home cpap Hx copd/asthma hypoxemia CAD with hx of stent placement to LAD Hypertension KATHY VILLALTA DO Jan 05, 2020 04:57
[2020-01-05] MEDS ORDERED: amLODIPine 10 MG (NORVASC) TAB ONE (05:02)
[2020-01-05] MEDS ORDERED: meTOprolol TARTRATE 25 MG (LOPRESSOR) TABLET ONE (05:04)
[2020-01-05] MEDS: meTOprolol TARTRATE 25 MG (LOPRESSOR) TABLET PO SCH ×2 (05:09→10:36)
--- NOTE | 2020-01-05 05:12 | NUR ---
0900 DOSE OF METOPROLOL 25MG PO GIVEN NOW PER DR. VILLALTA'S ORDER.
[2020-01-05] MEDS ORDERED: LACTULOSE SYRUP 10GM/15ML (ENULOSE) 30ML UDC PO PRN (05:30)
[2020-01-05 05:36] LABS: MAGNESIUM 2.5 MG/DL (1.6-2.4); PHOSPHORUS 2.2 MG/DL (2.3-4.7)
[2020-01-05] MEDS ORDERED: hydrALAZINE (APESOLINE) 20 MG/ML VIAL IV SCH (06:00)
--- NOTE | 2020-01-05 09:19 | ST Dysphagia Evaluation ---
Speech Evaluation-General Medical Diagnosis Sepsis Onset Date: Jan 04, 2020 Therapy Diagnosis Therapy Diagnosis: Oropharyngeal Dysphagia Precautions Precautions: Aspiration Referral Referring Physician: Dr. Nunez Reason for Referral: Evaluation/Treatment Medical History Pertinent Medical History: CAD, COPD, GERD, HTN Reviewed History: Yes Speech PLF/Current-Dysphagia Prior Level of Function Patient reported that swallow functions were within functional limits prior to ICU admission. Subjective Patient was alert, cooperative, and fatigued during the evaluation tasks. Patient reported that she wants to feel better and not be in pain anymore. Patient completed all evaluation tasks sitting upright in her bed. Cognitive Status Patient Orientation: Person, Place, Eyes Open, Mumbles Oral Motor Skills Denture Type: Full- Upper & Lower Current Food Consistancy: Regular Ability to Follow Directions: Good Oral Expression Ability: Mild Impairment Voice Voice Phonatory-Based Quality: Weak Voice Pitch: Mildly Low Voice Loudness: Mildly Soft/Quiet Face Facial Symmetry: Symmetrical Oral-Facial Assessment Oral-Facial Dentition: Normal Labial Seal Description: Normal Dysphagia Evaluation Consistencies Presented: Thin Liquid, Mechanical Soft, Pureed Dietary Recommendations: Mechanical Soft Liquid Recommendations: Thin Swallowing Precautions: Alternate Liquids/Solids, Double Swallow, Decreased Bolus 1/4 Tsp, Liquids from Straw, Small Bites and Sips, Sitting Upright 90 Degrees, Sitting 90 Degrees 30 Post Intake Dysphagia Evaluation Summary Patient was admitted to the ICU s/p sepsis. Patient was presented thin liquids via 1/2 tsp spoon and straw. Patient demonstrated no s/s of penetration/aspiration. Patient was then presented puree and mechanical soft consistencies via 1/2 tsp spoon with no s/s of penetration/aspiration. It is important to note that patients mastication and oral transit was mildly delayed and required moderate cues to complete. It is recommended that patient receive a DYSPHAGIA II with thin liquids. Additionally, patient will utilize compensatory strategies of sitting upright, alternating liquids and solids, and small bites and sips to increase safe and effective swallow and oral intake. Barriers to Learning Current medical status. Speech Short Term Goals Short Term Goals Short Term Goals 1. Patient will tolerate least restrictive diet without s/s of aspiration at 90%. 2. Patient will utilize compensatory strategies as trained at 90% with minimal cues. Speech Tinsel Machine Operator Goals Tinsel Machine Operator Goals Patient will maintain adequate nutrition/hydration via safe and effective swallow function. Speech-Plan Patient/Family Goals Patient/Family Goals: Patient reported that he wishes to return home to previous level of mobility and independence. Treatment Plan Speech Therapy Treatment Plan: Continue Plan of Care Treatment Duration: Jan 12, 2020 Frequency: 2 times per week Estimated Hrs Per Day: .25 hour per day Rehab Potential: Fair Barriers to Learning: Current medical status Pt/Family Agrees to Plan: Yes Safety Risks/Education Teaching Recipient: Patient, Family Teaching Methods: Demonstration, Discussion Response to Teaching: Verbalize Understanding Education Topics Provided: Utilization of compensatory strategies during all oral intake. Time Speech Therapy Time In: 08:30 Speech Therapy Time Out: 08:45 Total Billed Time: 15 Billed Treatment Time HimanshuMEAGHAN BETHANIA ST Jan 05, 2020 09:19
--- NOTE | 2020-01-05 09:37 | Progress Note - Urology ---
Progress Note-Urology Progress Notes/Assess & Plan Progress/Assessment & Plan LOOKS AND FEELS BETTER. BP DOWN THIS AM. MALIN IN DRAINING CLEAR URINE Final Diagnosis URINE RETENTION STANISLAV SHROT MD Jan 05, 2020 09:37
--- NOTE | 2020-01-05 09:49 | Occupational Therapy Eval ---
OT Evaluation-General/PLF Medical Diagnosis Admission Date Jan 04, 2020 at 10:30 Medical Diagnosis: Sepsis Onset Date: Jan 03, 2020 Therapy Diagnosis Therapy Diagnosis: Decreased ADL Height/Weight Height (Feet): 5 Height (Inches): 0 Weight (Pounds): 160 Weight (Ounces): 0.0 Precautions Precautions/Isolations: Fall Prevention, Standard Precautions Safety Interventions: Reorient-PRN Weight Bear Status Weight Bearing Restriction: Weight Bearing/Tolerated Referral Physician: Halle Dejesus DO Referral Reason: Activity Tolerance, Self Care, Evaluation/Treatment, Strengthening/ROM Medical History Pertinent Medical History: CAD, COPD, GERD, HTN Additional Medical History asthma, COPD, chronic edema, CAD, high cholesterol, HTN, neuropathy, DDD, arthritis Current History Pt transferred from ARU to ICU on 01/04/20 due to AMS/ decreased medical status. Reviewed History: Yes Social History Home: Single Level Current Living Status: Alone (family supervision for past 2 weeks.) ADL-Prior Level of Function SCALE: Activities may be completed with or without assistive devices. 8-Bgkzyhxccz-fvvqwhx completes the activity by him/herself with no assistance from a helper. 5-Set-up or Clean-up Assistance-helper sets up or cleans up; patient completes activity. Patriot assists only prior to or following the activity. 4-Supervision or Touching Assistance-helper provides verbal cues and/or touching/steadying and/or contact guard assistance as patient completes activity. Assistance may be provided throughout the activity or intermittently. 3-Partial/Moderate Assistance-helper does LESS THAN HALF the effort. Patriot lifts, holds or supports trunk or limbs, but provides less than half the effort. 2-Substantial/Maximal Assistance-helper does MORE THAN HALF the effort. Patriot lifts or holds trunk or limbs and provides more than half the effort. 0-Spyqyrmtk-jclbql does ALL the effort. Patient does none of the effort to complete the activity. Or, the assistance of 2 or more helpers is required for the patient to complete the activity. If activity was not attempted, code reason: 7-Patient Refused. 9-Not Applicable-not attempted and the patient did not perform the activity before the current illness, exacerbation or injury. 10-Not Attempted due to Environmental Limitations-(lack of equipment, weather restraints, etc.). 88-Not Attempted due to Medical Conditions or Safety Concerns. ADL PLOF Comments Pt was IND with all ADLs, though for previous 2 weeks family has supervised for safety/ fall risk. Self Care: Needed Some Help Functional Cognition: Independent DME/Equipment: Bath Chair, Bedside Commode, Grab Bars, Shower DME/Equipment Comments [address]WW, [address] Self: No OT Current Status Subjective Pt seen in bed, laying supine with family present. Pt oriented to person, time, situation, though pt has difficulty finding words throughout evaluation. Agreeable to eval. Mental Status/Objective Patient Orientation: Person, Time, Situation Attachments: Bond Catheter, IV, Telemetry Current Glasses/Contacts: Yes Hearing Aids: No Dentures/Partials: Yes Hand Dominance: Right Upper Extremity ROM Decreased bilaterally Upper Extremity Coordination Cannot follow direction at this time Upper Extremity Sensation WFL Upper Extremity Strength Decreased bilaterally ADL-Treatment Shower/Bathe Self (QC): 2 (Based on clinical judgement, pt would be max A for shower/ bath due to decreased strength and AMS) Toileting Hygiene (QC): 1 (Pt on bed eller upon OT entry. Pt able to follow direction to complete bridge, able to roll to L side with max verbal/ tactile cues, no physical assist. TD for wiping.) Other Treatments Pt awake/ alert, laughing throughout session. Daughter and granddaughter present. Pt oriented, though has difficulty finding words. Pt completes AROM with cues, unable to follow direction to podiatric physician fingers for podiatric physician strength testing. Pt and daughters provide hx, pt fixed on strange dream and laughs throughout/ is not easily redirected. Pt educated on continuing AROM of UE throughout stay, pt and daughter nods. Pt left in room with nursing present, all needs met. Education OT Patient Education: Exercise program, Home exercise program, Modified ADL techniques, Purpose of tx/functional activities Teaching Recipient: Patient Teaching Methods: Demonstration, Discussion Response to Teaching: Verbalize Understanding, Return Demonstration, Reinforcement Needed OT Chcf Goals Chcf Goals Time Frame: Jan 19, 2020 Eating (QC): 6 Oral Hygiene (QC): 6 Toileting Hygiene (QC): 6 Shower/Bathe Self (QC): 4 Upper Body Dressing (QC): 6 Lower Body Dressing (QC): 4 On/Off Footwear (QC): 6 Additional Goals: 1-Demonstrate ADL Tasks, 2-Verbalize Understanding, 3- ImproveStrength/Monica 1=Demonstrate adherence to instructed precautions during ADL tasks. 2=Patient will verbalize/demonstrate understanding of assistive devices/modifications for ADL. 3=Patient will improve strength/tolerance for activity to enable patient to perform ADL's. OT Education/Plan Problem List/Assessment Assessment: Decreased Activ Tolerance, Decreased Safety Aware, Decreased UE Strength, Impaired Cognition, Impaired I ADL's, Impaired Self-Care Skills Discharge Recommendations Plan/Recommendations: Continue POC Therapy Discharge Recommendati: 24 Hour Supervision Treatment Plan/Plan of Care Treatment,Training & Education: Yes Patient would benefit from OT for education, treatment and training to promote independence in ADL's, mobility, safety and/or upper extremity function for ADL's. Plan of Care: ADL Retraining, Caregiver Training, Functional Mobility, UE Funct Exercise/Act Treatment Duration: Jan 19, 2020 Frequency: 5 times per week Estimated Hrs Per Day: .25 hour per day Agreement: Yes Rehab Potential: Guarded Time/GCodes Start Time: 09:24 Stop Time: 09:37 Total Time Billed (hr/min): 13 Billed Treatment Time 1LISA (13) RUDDY LEON OTR Jan 05, 2020 09:49
--- NOTE | 2020-01-05 09:59 | Cardiology Progress Note ---
Subjective Date Seen by Provider: Jan 05, 2020 Time Seen by Provider: 09:56 Subjective/Events-last exam Patient is laying down in bed, less confused today, feeling better. No new complaint Review of Systems General: No Chills, No Night Sweats, No Fatigue, No Malaise, No Appetite, No Other HEENT: No Head Aches, No Visual Changes, No Eye Pain, No Ear Pain, No Dysphas ia, No Sinus Congestion, No Post Nasal Drip, No Sore Throat, No Other Pulmonary: No Dyspnea, No Cough, No Pleuritic Chest Pain, No Other Cardiovascular: No: Chest Pain, Palpitations, Orthopnea, Paroxysmal Noc. Dyspnea, Edema, Lt Headedness, Other Focused Exam Lactate Level 01/04/20 11:40: Lactic Acid Level 0.62 Objective-Cardiology Exam Last Set of Vital Signs Vital Signs 01/05/20 01/05/20 07:26 08:00 Temp 37.4 Pulse 75 Resp 12 B/P (MAP) 144/74 (97) Pulse Ox 95 O2 Delivery Room Air Capillary Refill : Less Than 3 Seconds I&O Intake and Output 01/05/20 00:00 Intake Total 7.4 ml Output Total 950 ml Balance -942.6 ml Intake Oral 0 ml IV Total 7.4 ml Output Urine Total 950 ml Daily Weight Change No General: Alert, Moderate Distress, Other HEENT: Atraumatic Neck: Supple, No JVD Lungs: Clear to Auscultation, Normal Air Movement Heart: Regular Rate, Normal S1, Normal S2 Abdomen: Normal Bowel Sounds, No Tenderness Extremities: No Clubbing, No Cyanosis Skin: No Rashes Neuro: Other Psych/Mental Status: Other Results Lab Laboratory Tests 01/04/20 11:40 01/05/20 03:42 A/P-Cardiology Admission Diagnosis Change in mental status Coronary artery disease Hypertension UTI Assessment/Plan Acute change in mental status, better today. Still slightly confused. Labile hypertension, still having episode of severe hypertension. I will add hydralazine 25 mg for 8 hours in addition to Norvasc and metoprolol and monitor blood pressure tolerance and response Urinary tract infection, receiving antibiotics and managed by medical team Anemia, cold agglutinin disease, received blood transfusion with warm blood, continue to monitor H/H. Dr. Tucker following. Mild elevation in troponin, subtle abnormality, known to have stent in the LAD, last workup was done in March 2013 showing patent stent in the proximal VG with mild in-stent restenosis, mild to moderate disease in the mid LAD and mid circumflex artery. Had an abnormal stress test in the past and has been refusing cardiac catheterization. Continue with conservative management at this time. Chest pain, generalized body ache, history of ufhy-mb-yagofjmd coronary artery disease, no further episodes of chest pain were reported. Continue to monitor Dyspnea, history of bronchial asthma, history of C Pap use, normoactive shortness of breath noted that this time History of gastroesophageal reflux disease, esophagitis, mild dysphagia, esophageal spasm, managed by primary care team History of hyperlipidemia, monitor lipids Moderate carotid stenosis tortuous carotids by ultrasound, continue to monitor Acute on chronic renal failure, improving slowly, continue to monitor. Back pain, currently on Baclofen TID Clinical Quality Measures DVT/VTE Risk/Contraindication: Risk Factor Score Per Nursin RFS Level Per Nursing on Admit: 4+=Very High ELO HOLBROOK MD Jan 05, 2020 09:59
--- NOTE | 2020-01-05 10:18 | NUR ---
Yazidi. Recently anointed. Abnormal Psychology Teacher provided prayer and Communion.
--- NOTE | 2020-01-05 10:19 | NUR ---
PALLIATIVE CARE: Stopped by patient room this morning and spoke with patient and daughter Liudmila. Plan is for a family meeting at 11 to discuss POC for discharge.
[2020-01-05] MEDS: NS IV 1000 ML 1,000 ML IV SCH ×2 (10:21→15:30)
[2020-01-05] MEDS: DOCUSATE SODIUM 100 MG (COLACE) CAP PO SCH ×2 (10:36→21:55)
[2020-01-05] MEDS: amLODIPine 5 MG (NORVASC) TAB PO SCH (10:36)
[2020-01-05] MEDS: ASPIRIN E.C. 81 MG (ECOTRIN) TAB PO SCH (10:36)
[2020-01-05] MEDS: PANTOPRAZOLE 40 MG (PROTONIX) TAB PO SCH (10:36)
[2020-01-05] MEDS: hydrALAZINE (APRESOLINE) 25 MG TAB PO SCH ×3 (10:38→21:55)
--- NOTE | 2020-01-05 12:09 | NUR ---
Palliative care RN and 6 family members met to discuss Goals Of Care and discharge plans. After a discussion about her decline of the past few months and the current hospital stays ups and downs, it was finally decided to send a referral to [facility], with plan for possible discharge to home tomorrow with 14/06 family care givers. Will wait to see if patiet is picked up by Hospice if not will talk to [facility] about the [facility] program. Addendum: 01/05/20 at 1347 by JEFF RAMON RN [facility] her now to assess. They will make a determination and let the RN know.
[2020-01-05] MEDS ORDERED: methylPREDNISolone 40 MG/ML (Solu-MEDROL) VIAL IV ONE (14:15)
[2020-01-05] MEDS ORDERED: methylPREDNISolone 40 MG/ML (Solu-MEDROL) VIAL ONE (14:42)
--- NOTE | 2020-01-05 15:21 | NUR ---
"RD ASSESSMENT PMHx: COPD; CAD; hypercholesterolemia; HTN; renal failure; GERD; hiatal hernia PT INTERACTION: Pt was awake and pleasant during nutrition follow-up. Note pt has AMS, and family is present at bedside. Pt states she hasn't been eating well since last assessment. Note avg PO intake of <50% of meals while in ARU, per chart review. Family states pt has been having issues with nausea and constipation. Note last BM was 01/04 and pt currently on bowel regimen of colace BID, per chart review. ABNORMAL NUTRITION-RELATED LAB VALUES LOW: phos 2.2; HDL 38 HIGH: Cl 109; cr 1.39; Mg 2.5; alkphos 146 Est. kcal needs: 9038-9075 kcal | 0.8-1.0 kcal/kg Est. Pro needs: 59-74 g Pro | 0.8-1.0 g Pro/kg PES STATEMENT: Inadequate oral intake (NI-2.1) related to loss of appetite | nausea | constipation as evidenced by pt (family) interview | avg PO intake <50% INTERVENTION: Continue with current diet order of DYS2 Mechanically Altered diet. Pt would benefit from nutrition supplementation. Family states she had been receiving them and refusing to drink them. Will continue to follow and reassess as pt needs and status change. MONITOR/EVALUATE: PO Intake; Plan of Care; Hydration Status; Weight Status; Lab Values Alaina Baca, MS, RD, LD"
[2020-01-05] MEDS: ENOXAPARIN 30 MG/0.3 ML (LOVENOX) SYR SC SCH (16:06)
[2020-01-05] MEDS: RT-ALBUTEROL/IPRATROPIUM 3 ML (DUONEB) VIAL INH SCH (18:28)
--- NOTE | 2020-01-05 19:02 | Progress Note - Hospitalist ---
Subjective HPI/CC On Admission Date Seen by Provider: Jan 05, 2020 Time Seen by Provider: 09:30 CC: AMS transferred from IRF HPI: Hospital course: Pt had a lengthy hospital course in inpatient rehab after sepsis and UTI. She did have more and more complications during her hospital course including tremors of unknown source and they were witnessed and it appeared to be more of a pseudoseizure type of situation. She ultimately became more and more complicated requiring a transfer to the ICU to rule out stroke and sepsis. Pt even had another UTI after Rocephin discontinued and completed treatment after one day and repeat urine culture was Enterococcus so Amoxil had been placed on board but overall Pt has had such a declined status requiring more and more aggressive treatment, she remains DNR and poor prognosis was assessed the night she was admitted to begin with so will provide supportive care and appreciate Dr. Nunez and Dr. Moody's consultation expertise. Subjective/Events-last exam pt in some pain with left wrist which is red, swollen, painful to move. More awake than before, moves all extremities, but not back to baseline Review of Systems Neurological: Weakness Focused Exam Lactate Level 01/04/20 11:40: Lactic Acid Level 0.62 Objective Exam Vital Signs Vital Signs Date Time Temp Pulse Resp B/P (MAP) Pulse Ox O2 Delivery O2 Flow Rate FiO2 01/05/20 18:31 94 Room Air 01/05/20 16:00 70 14 145/61 (89) 01/05/20 16:00 37.3 01/04/20 16:00 2.00 Capillary Refill : Less Than 3 Seconds General Appearance: Chronically ill Neck: Limited Range of Motion Respiratory: Chest Non Tender, Lungs Clear, Normal Breath Sounds, No Accessory Muscle Use, No Respiratory Distress Cardiovascular: Regular Rate, Rhythm, No Edema, Systolic Murmur Gastrointestinal: Normal Bowel Sounds, Non Tender, Soft Rectal: Deferred Extremity: No Calf Tenderness, No Pedal Edema Neurologic/Psychiatric: Depressed Affect, Disoriented Skin: Normal Color, Warm/Dry Results/Procedures Lab Laboratory Tests 01/05/20 03:42 Patient resulted labs reviewed. Imaging: Reviewed Imaging Report Assessment/Plan Assessment and Plan Assess & Plan/Chief Complaint 1. mental status change- fluctuating- most likely from underlying senility vs hypertensive encephalopathy 2./HTN -severe- improved 3.Wrist pain - most c/w pseudogout- 1 dose steroids 4.urinary retention - d/c miranda ade Clinical Quality Measures DVT/VTE Risk/Contraindication: Risk Factor Score Per Nursin RFS Level Per Nursing on Admit: 4+=Very High LUKAS COOK MD Jan 05, 2020 19:02
[2020-01-05] MEDS: ACETAMINOPHEN 325 MG TABLET PO PRN (21:55)
[2020-01-06] VITALS (8 sets, daily range): BP systolic 133–165; BP diastolic 57–70
[2020-01-06] MEDS: NS IV 1000 ML 1,000 ML IV SCH (01:35)
[2020-01-06] MEDS: AMPICILLIN FOR IV USE 1,000 MG in WATER (STERILE) FOR INJECTION 7.4 ML IV SCH ×4 (03:29→21:39)
[2020-01-06] MEDS: ACETAMINOPHEN 325 MG TABLET PO PRN (04:00)
[2020-01-06 04:19] LABS: BASOPHILS % (AUTO) 0 % (0-10); EOSINOPHILS % (AUTO) 0 % (0-10); HEMATOCRIT 27 % (35-52); HEMOGLOBIN 8.6 G/DL (11.5-16.0); LYMPHOCYTES # (AUTO) 1.2 X 10^3 (1.0-4.0); LYMPHOCYTES % (AUTO) 11 % (12-44); MEAN CORPUSCULAR HEMOGLOBIN 27 PG (25-34); MEAN CORPUSCULAR HGB CONC 32 G/DL (32-36); MEAN CORPUSCULAR VOLUME 86 FL (80-99); MEAN PLATELET VOLUME 9.3 FL (7.4-10.4); MONOCYTES # (AUTO) 0.4 X 10^3 (0.0-1.0); MONOCYTES % (AUTO) 3 % (0-12); NEUTROPHILS # (AUTO) 9.2 X 10^3 (1.8-7.8); NEUTROPHILS % (AUTO) 86 % (42-75); PLATELET COUNT 510 10^3/uL (130-400); RED CELL DISTRIBUTION WIDTH 14.9 % (10.0-14.5); WHITE BLOOD COUNT 10.7 10^3/uL (4.3-11.0)
--- NOTE | 2020-01-06 04:21 | Pulmonary Progress Note ---
Sepsis Event Evaluation Height, Weight, BMI Height: 5'0" Weight: 160lbs. 0.0oz. 72.792812ib; 32.85 BMI Method:Stated Focused Exam Lactate Level 01/04/20 11:40: Lactic Acid Level 0.62 Exam Exam Vital Signs Date Time Temp Pulse Resp B/P (MAP) Pulse Ox O2 Delivery O2 Flow Rate FiO2 01/06/20 04:00 37.4 84 20 165/70 (101) 97 NIV CPAP 01/06/20 02:00 79 13 138/61 (86) 95 NIV CPAP 01/06/20 01:00 77 01/06/20 00:00 Room Air 01/06/20 00:00 77 13 133/59 (83) 97 NIV CPAP 01/05/20 23:22 37.0 80 16 137/61 (86) 95 NIV CPAP 01/05/20 22:00 94 15 144/71 (95) 98 Room Air 01/05/20 21:00 Room Air 01/05/20 20:00 Room Air 01/05/20 19:54 37.6 91 21 142/73 (96) 93 Room Air 01/05/20 19:00 86 01/05/20 18:31 94 Room Air 01/05/20 16:00 70 14 145/61 (89) 92 Room Air 01/05/20 16:00 37.3 01/05/20 15:39 Room Air 01/05/20 12:56 81 01/05/20 12:00 37.2 75 16 169/70 (103) 95 Room Air 01/05/20 12:00 Room Air 01/05/20 11:23 95 Room Air 01/05/20 09:00 Room Air 01/05/20 08:00 75 12 144/74 (97) 95 Room Air 01/05/20 08:00 Room Air 01/05/20 07:26 37.4 01/05/20 07:00 75 I & O 01/06/20 07:00 Intake Total 1457.4 ml Output Total 650 ml Balance 807.4 ml Height & Weight Height: 5'0" Weight: 160lbs. 0.0oz. 72.842779ih; 32.85 BMI Method:Stated General Appearance: Chronically ill HEENT: PERRL/EOMI, Normal ENT Inspection, Pharynx Normal, Moist Mucous Membranes Neck: Limited Range of Motion Respiratory: Chest Non Tender, Lungs Clear, Normal Breath Sounds, No Accessory Muscle Use, No Respiratory Distress Cardiovascular: Regular Rate, Rhythm, No Edema, Systolic Murmur Capillary Refill: Less Than 3 Seconds Gastrointestinal: normal bowel sounds, non tender, soft Extremity: No Calf Tenderness, No Pedal Edema Neurologic/Psychiatric: Depressed Affect, Disoriented Skin: Normal Color, Warm/Dry Lymphatic: No Adenopathy Results Lab Laboratory Tests 01/04/20 11:40 01/05/20 03:42 Assessment/Plan Assessment/Plan Sepsis with UTI and Urinary retention -Urology is following MS changes -PT transferred to ICU from rehab secondary worsening lethargy -Today she is more awake however having problems finding words. HTN -PO lopressor, norvasc -PRN hydralazine LE muscle spasams -all sedation meds are currently on hold anemia -- -Monitor -Hold anticoagulation S/p recent fall -Fall precautions OMID -has home cpap Hx copd/asthma hypoxemia CAD with hx of stent placement to LAD Hypertension KATHY VILLALTA DO Jan 06, 2020 04:21
[2020-01-06 04:54] LABS: CALCIUM 8.7 MG/DL (8.5-10.1); CREATININE SERUM 1.4 MG/DL (0.60-1.30); MAGNESIUM 2.5 MG/DL (1.6-2.4); PHOSPHORUS 2.8 MG/DL (2.3-4.7)
[2020-01-06] MEDS ORDERED: SUCRALFATE 1 GM (CARAFATE) TAB ONE (05:23)
[2020-01-06] MEDS ORDERED: risperiDONE 0.25 MG (RisperDAL) TAB ONE (05:24)
[2020-01-06] MEDS: hydrALAZINE (APRESOLINE) 25 MG TAB PO SCH ×3 (05:29→21:36)
[2020-01-06] MEDS: SUCRALFATE 1 GM (CARAFATE) TAB PO SCH ×4 (05:30→21:36)
[2020-01-06] MEDS: risperiDONE 0.25 MG (RisperDAL) TAB PO SCH ×2 (05:30→21:41)
[2020-01-06] MEDS: ASPIRIN E.C. 81 MG (ECOTRIN) TAB PO SCH (08:45)
[2020-01-06] MEDS: PANTOPRAZOLE 40 MG (PROTONIX) TAB PO SCH (08:46)
[2020-01-06] MEDS: DOCUSATE SODIUM 100 MG (COLACE) CAP PO SCH ×2 (08:46→21:36)
[2020-01-06] MEDS: amLODIPine 5 MG (NORVASC) TAB PO SCH (08:46)
[2020-01-06] MEDS: meTOprolol TARTRATE 25 MG (LOPRESSOR) TABLET PO SCH ×2 (08:46→21:36)
[2020-01-06] MEDS: LACTULOSE SYRUP 10GM/15ML (ENULOSE) 30ML UDC PO SCH ×2 (08:47→21:38)
[2020-01-06] MEDS: RT-ALBUTEROL/IPRATROPIUM 3 ML (DUONEB) VIAL INH SCH ×2 (09:00→18:46)
[2020-01-06] MEDS ORDERED: PANTOPRAZOLE 40 MG (PROTONIX) TAB PO SCH (09:00)
--- NOTE | 2020-01-06 10:29 | NUR ---
PT REPORT GIVEN TO VIKY CORDON. PT TO BE TRANSFERRED TO ROOM 429 AT THIS TIME.
--- NOTE | 2020-01-06 10:34 | Cardiology Progress Note ---
Subjective Date Seen by Provider: Jan 06, 2020 Time Seen by Provider: 10:31 Subjective/Events-last exam Patient is laying down in bed, denied any chest pain. No palpitation. Feeling better, more oriented Review of Systems General: No Chills, No Night Sweats, No Fatigue, No Malaise, No Appetite, No Other HEENT: No Head Aches, No Visual Changes, No Eye Pain, No Ear Pain, No Dysphasia, No Sinus Congestion, No Post Nasal Drip, No Sore Throat, No Other Pulmonary: No Dyspnea, No Cough, No Pleuritic Chest Pain, No Other Cardiovascular: No: Chest Pain, Palpitations, Orthopnea, Paroxysmal Noc. Dyspnea, Edema, Lt Headedness, Other Focused Exam Lactate Level 01/04/20 11:40: Lactic Acid Level 0.62 Objective-Cardiology Exam Last Set of Vital Signs Vital Signs 01/06/20 01/06/20 08:00 08:05 Temp 37.1 Pulse 80 Resp 22 B/P (MAP) 146/58 (87) Capillary Refill : Less Than 3 Seconds I&O Intake and Output 01/06/20 00:00 Intake Total 532.4 ml Output Total 1600 ml Balance -1067.6 ml Intake Oral 525 ml IV Total 7.4 ml Output Urine Total 1600 ml General: Alert, Oriented X3, Cooperative, No Acute Distress HEENT: Atraumatic Neck: Supple, No JVD Lungs: Clear to Auscultation, Normal Air Movement Heart: Regular Rate, Normal S1, Normal S2 Abdomen: Normal Bowel Sounds, No Tenderness Extremities: No Clubbing, No Cyanosis Skin: No Rashes Neuro: Normal Speech, Sensation Intact Psych/Mental Status: Mental Status NL Results Lab Laboratory Tests 01/06/20 04:13 A/P-Cardiology Admission Diagnosis Change in mental status Coronary artery disease Hypertension UTI Assessment/Plan Status post change in mental status, better today, back to baseline. Urinary tract infection with sepsis, improving, managed by medical team. Labile hypertension, under control at this time, still mildly elevated, continue on current medication monitor blood pressure Anemia, cold agglutinin disease, received blood transfusion with warm blood, continue to monitor H/H. Dr. Tucker following. Mild elevation in troponin, subtle abnormality, known to have stent in the LAD, last workup was done in March 2013 showing patent stent in the proximal VG with mild in-stent restenosis, mild to moderate disease in the mid LAD and mid circumflex artery. Had an abnormal stress test in the past and has been refusing cardiac catheterization. Continue with conservative management at this time. Chest pain, generalized body ache, history of drxv-mi-[id number] coronary artery disease, no further episodes of chest pain were reported. Continue to monitor Dyspnea, history of bronchial asthma, history of C Pap use, normoactive shortness of breath noted that this time History of gastroesophageal reflux disease, esophagitis, mild dysphagia, esophageal spasm, managed by primary care team History of hyperlipidemia, monitor lipids Moderate carotid stenosis tortuous carotids by ultrasound, continue to monitor Acute on chronic renal failure, improving slowly, continue to monitor. Back pain, currently on Baclofen TID Clinical Quality Measures DVT/VTE Risk/Contraindication: Risk Factor Score Per Nursin RFS Level Per Nursing on Admit: 4+=Very High ELO HOLBROOK MD Jan 06, 2020 10:34
[2020-01-06] MEDS ORDERED: methylPREDNISolone 125 MG (Solu-MEDROL) VIAL IVP NR (11:00)
--- NOTE | 2020-01-06 11:00 | NUR ---
Report received from Michael CORDON, patient to room 429 with family and belongings. patient oriented to call light and room, will assume care of patient at this time.
--- NOTE | 2020-01-06 11:02 | Progress Note - Hospitalist ---
Subjective HPI/CC On Admission Date Seen by Provider: Jan 06, 2020 Time Seen by Provider: 10:00 CC: AMS transferred from IRF HPI: Hospital course: Pt had a lengthy hospital course in inpatient rehab after sepsis and UTI. She did have more and more complications during her hospital course including tremors of unknown source and they were witnessed and it appeared to be more of a pseudoseizure type of situation. She ultimately became more and more complicated requiring a transfer to the ICU to rule out stroke and sepsis. Pt even had another UTI after Rocephin discontinued and completed treatment after one day and repeat urine culture was Enterococcus so Amoxil had been placed on board but overall Pt has had such a declined status requiring more and more aggressive treatment, she remains DNR and poor prognosis was assessed the night she was admitted to begin with so will provide supportive care and appreciate Dr. Nunez and Dr. Moody's consultation expertise. Subjective/Events-last exam Patient is awake and alert this morning. Her left wrist is much better after the steroid injection. Family is agreeable to her being transferred to the floor and increase her activity. Probable discharge in the morning. Review of Systems Musculoskeletal: hand pain Neurological: Weakness Focused Exam Lactate Level 01/04/20 11:40: Lactic Acid Level 0.62 Objective Exam Vital Signs Vital Signs Date Time Temp Pulse Resp B/P (MAP) Pulse Ox O2 Delivery O2 Flow Rate FiO2 01/06/20 09:00 100 Room Air 01/06/20 08:05 37.1 01/06/20 08:00 80 22 146/58 (87) 01/04/20 16:00 2.00 Capillary Refill : Less Than 3 Seconds General Appearance: No Apparent Distress, WD/WN HEENT: Normal ENT Inspection Neck: Non Tender, Supple Respiratory: Lungs Clear, Normal Breath Sounds, No Accessory Muscle Use, No Respiratory Distress Cardiovascular: Regular Rate, Rhythm, No Gallop, Normal Peripheral Pulses, Systolic Murmur Gastrointestinal: Normal Bowel Sounds, Non Tender, Soft Rectal: Deferred Back: Normal Inspection Extremity: Normal Capillary Refill, Non Tender, No Calf Tenderness Neurologic/Psychiatric: Alert, No Motor/Sensory Deficits, Normal Mood/Affect Skin: Normal Color, Warm/Dry Lymphatic: No Adenopathy Results/Procedures Lab Laboratory Tests 01/06/20 04:13 Patient resulted labs reviewed. Imaging: Reviewed Imaging Report Assessment/Plan Assessment and Plan Assess & Plan/Chief Complaint 1. mental status change- fluctuating- most likely from underlying senility vs hypertensive encephalopathy-improving 2./HTN -severe- improved 3.Wrist pain - most c/w pseudogout- 1 dose steroids 4.urinary retention - d/c miranda ade 5. Mild renal insufficiency 6. Weakness PT OT 7. Anemia-stable Clinical Quality Measures DVT/VTE Risk/Contraindication: Risk Factor Score Per Nursin RFS Level Per Nursing on Admit: 4+=Very High LUKAS COOK MD Jan 06, 2020 11:02
--- NOTE | 2020-01-06 12:29 | Physical Therapy Evaluation ---
PT Evaluation-General Medical Diagnosis Admission Date Jan 04, 2020 at 10:30 Medical Diagnosis: Sepsis Onset Date: Jan 04, 2020 Therapy Diagnosis Therapy Diagnosis: Debility Height/Weight Height (Feet): 5 Height (Inches): 0 Weight (Pounds): 160 Weight (Ounces): 0.0 Precautions Precautions/Isolations: Fall Prevention, Standard Precautions Weight Bear Status Right Lower Extremity: Right Weight Bearing/Tolerated Left Lower Extremity: Left Weight Bearing/Tolerated Referral Physician: Halle Dejesus DO Reason for Referral: Evaluation/Treatment Medical History Pertinent Medical History: Arthritis, CAD, COPD, GERD, HTN Additional Medical History former smoker, appendectomy, bowel Sx, cardiac Sx, coronary stent, gallbladder Sx, asthma, pneumonia, sleep apnea, chronic edema, swelling, HTN, high cholesterol, neuropathy, renal failure, GERD, hiatal hernia, DDD, chronic back pain, cataracts, [place], chronic anemia Current History Originally admitted with UTI and sepsis, transferred to ARU. Additional transfer to ICU due to AMS. Reviewed History: Yes Social History Home: Single Level Current Living Status: Alone (family supervision for past 2 weeks.) Entry Into Home: Stairs With Railing (family assists when leaving home) Prior Prior Level of Function SCALE: Activities may be completed with or without assistive devices. 1-Bdcvbojder-guozqlg completes the activity by him/herself with no assistance from a helper. 5-Set-up or Clean-up Assistance-helper sets up or cleans up; patient completes activity. [place] assists only prior to or following the activity. 4-Supervision or Touching Assistance-helper provides verbal cues and/or touching/steadying and/or contact guard assistance as patient completes ac tivity. Assistance may be provided throughout the activity or intermittently. 3-Partial/Moderate Assistance-helper does LESS THAN HALF the effort. [place] lifts, holds or supports trunk or limbs, but provides less than half the effort. 2-Substantial/Maximal Assistance-helper does MORE THAN HALF the effort. [place] lifts or holds trunk or limbs and provides more than half the effort. 8-Nylobqqkd-mrbgje does ALL the effort. Patient does none of the effort to complete the activity. Or, the assistance of 2 or more helpers is required for the patient to complete the activity. If activity was not attempted, code reason: 7-Patient Refused. 9-Not Applicable-not attempted and the patient did not perform the activity before the current illness, exacerbation or injury. 10-Not Attempted due to Environmental Limitations-(lack of equipment, weather restraints, etc.). 88-Not Attempted due to Medical Conditions or Safety Concerns. Bed Mobility: 6 Transfers (B,C,W/C): 6 Gait: 6 Stairs: 4 Indoor Mobility (Ambulation): Independent Stairs: Needed Some Help Prior Devices Use: Walker, Other-see list below (cane) Family assists when leaving home PT Evaluation-Current Subjective Pt known to this therapy from another therapy setting. Pt recognized this PT upon entry. Agreeable, no c/o Pt/Family Goals Home with family Objective Patient Orientation: Person, Place, Time, Situation Attachments: Bond Catheter ROM/Strength ROM Upper Extremities See OT ROM Lower Extremities WFL for mobility Strength Upper Extremities See OT Strength Lower Extremities Grossly 3+/5 Integumentary/Posture Integumentary See nurses' notes Bowel Incontinence: No Bladder Incontinence: Bond Cath Posture Kyphotic, forward head Sensory Vision: Functional Hearing: Impaired Hand Dominance: Right Sensation Right Lower Extremit: Impaired Sensation Left Lower Extremity: Impaired Transfers Roll Left to Right (QC): 5 Sit to Lying (QC): 5 Lying to Sitting/Side of Bed(Q: 5 Sit to Stand (QC): 4 Gait Does the Patient Walk?: Yes Mode of Locomotion: Walk Anticipated Mode of Locomotion: Walk Walk 10 feet (QC): 4 Walk 50 ft with 2 Turns(QC): 4 Walk 150 ft (QC): 4 Distance: 200 Gait Assistive Device: FWW Comments/Gait Description Pt ambulates with slow, steady gait with FWW. Demonstrates safe use of FWW. Wheelchair Training Does the Pt Use a Wheelchair?: No Balance Sitting Static: Normal Sitting Dynamic: Normal Standing Static: Fair Standing Dynamic: Fair Treatment Eval. Returned to bed with all needs met, family present in room Assessment/Needs Pt is an 89 y.o. female with general debility following hospitalization. Pt would benefit from skilled PT to improve functional strength, functional activity tolerance, and increase (I) with functional mobility to allow safe return home. Rehab Potential: Good PT Short Term Goals Short Term Goals Time Frame: Jan 08, 2020 Sit to lyin Lying to sitting on side of be: 6 Sit to stand: 6 PT Abrasive Worker Goals Abrasive Worker Goals PT Residential Goals Time Frame: Jan 13, 2020 Roll Left & Right (QC): 6 Sit to Lying (QC): 6 Lying-Sitting on Side/Bed(QC): 6 Sit to Stand (QC): 6 Chair/Nzw-es-Bcizo Xfer(QC): 6 Toilet Transfer (QC): 6 Car Transfer (QC): 4 Does the Patient Walk: Yes Walk 10 feet (QC): 6 Walk 50ft with 2 Turns (QC): 6 Walk 150 ft (QC): 6 Walking 10ft on Uneven Surface: 4 1 Step (curb) (QC): 4 4 Steps (QC): 4 12 Steps (QC): 9 Picking up an Object (QC): 4 Does the Pt use WC or Scooter?: No Wheel 50 feet with 2 turns (QC: 9 Type: N/A Wheel 150 feet: 9 Type: N/A PT LTGs established to allow safe return home (I) PT Plan Problem List Problem List: Activity Tolerance, Functional Strength, Safety, Balance, Gait, Transfer, Bed Mobility Treatment/Plan Treatment Plan: Continue Plan of Care Treatment Plan: Bed Mobility, Education, Functional Activity Monica, Functional Strength, Gait, Safety, Therapeutic Exercise, Transfers Treatment Duration: Jan 13, 2020 Frequency: 5 times per week Estimated Hrs Per Day: .25 hour per day Patient and/or Family Agrees t: Yes Discharge Recommendations Therapy Discharge Recommendati: Home & Family, Post Acute PT (HH) Time/GCodes Time In: 1205 Time Out: 1220 Total Billed Treatment Time: 15 Total Billed Treatment 1, DARWIN x 15' TONJA GURROLA DPEran Jan 06, 2020 12:29
--- NOTE | 2020-01-06 14:34 | Progress Note - Urology ---
Progress Note-Urology Progress Notes/Assess & Plan Progress/Assessment & Plan CONTINUES WELL. DC MALIN AND FOLLOW UP PVR WITH STRAIGHT CATH PRN Final Diagnosis URINE RETENTION AND UROSEPSIS STANISLAV SHORT MD Jan 06, 2020 14:34
[2020-01-06] MEDS ORDERED: AMPICILLIN FOR IV USE 2,000 MG VIAL ONE (17:10)
[2020-01-06] MEDS ORDERED: AMPICILLIN FOR IV USE 1,000 MG/VIAL ONE ×2 (17:12→21:27)
[2020-01-06] MEDS ORDERED: WATER (STERILE) FOR INJECTION 10 ML ONE ×2 (17:15→21:26)
[2020-01-06] MEDS: ENOXAPARIN 30 MG/0.3 ML (LOVENOX) SYR SC SCH (17:26)
[2020-01-07] VITALS: BP 167/69
[2020-01-07] MEDS ORDERED: AMPICILLIN FOR IV USE 1,000 MG/VIAL ONE (03:38)
[2020-01-07] MEDS ORDERED: WATER (STERILE) FOR INJECTION 10 ML ONE (03:38)
[2020-01-07] MEDS: AMPICILLIN FOR IV USE 1,000 MG in WATER (STERILE) FOR INJECTION 7.4 ML IV SCH (03:47)
[2020-01-07 04:00] VITALS: BP 180/69
[2020-01-07] MEDS: hydrALAZINE (APRESOLINE) 25 MG TAB PO SCH (06:21)
[2020-01-07] MEDS: SUCRALFATE 1 GM (CARAFATE) TAB PO SCH ×2 (06:21→11:43)
[2020-01-07 07:43] VITALS: BP 190/78
[2020-01-07] MEDS: ASPIRIN E.C. 81 MG (ECOTRIN) TAB PO SCH (08:02)
[2020-01-07] MEDS: DOCUSATE SODIUM 100 MG (COLACE) CAP PO SCH (08:02)
[2020-01-07] MEDS: amLODIPine 5 MG (NORVASC) TAB PO SCH (08:02)
[2020-01-07] MEDS: risperiDONE 0.25 MG (RisperDAL) TAB PO SCH (08:02)
[2020-01-07] MEDS: LACTULOSE SYRUP 10GM/15ML (ENULOSE) 30ML UDC PO SCH (08:02)
[2020-01-07] MEDS: PANTOPRAZOLE 40 MG (PROTONIX) TAB PO SCH (08:02)
[2020-01-07] MEDS: meTOprolol TARTRATE 25 MG (LOPRESSOR) TABLET PO SCH (08:02)
--- NOTE | 2020-01-07 08:29 | NUR ---
PHARMACY CALLED ABOUT AMPICILLIAN ORDER, PHARMACIST TO CORRECT ORDER SO MED CAN BE PULLED FROM [facility]. WILL RECHECK FOR MED AVAILABILITY
[2020-01-07] MEDS ORDERED: AMPICILLIN FOR IV USE 1,000 MG in WATER (STERILE) FOR INJECTION 7.4 ML IV SCH (08:30)
[2020-01-07] MEDS: RT-ALBUTEROL/IPRATROPIUM 3 ML (DUONEB) VIAL INH SCH (09:23)
--- NOTE | 2020-01-07 10:23 | Cardiology Progress Note ---
Subjective Date Seen by Provider: Jan 07, 2020 Time Seen by Provider: 10:20 Subjective/Events-last exam Patient is sitting in a chair, feeling better, asking to go home Review of Systems General: No Chills, No Night Sweats, No Fatigue, No Malaise, No Appetite, No Other HEENT: No Head Aches, No Visual Changes, No Eye Pain, No Ear Pain, No Dysphasia, No Sinus Congestion, No Post Nasal Drip, No Sore Throat, No Other Pulmonary: No Dyspnea, No Cough, No Pleuritic Chest Pain, No Other Cardiovascular: No: Chest Pain, Palpitations, Orthopnea, Paroxysmal Noc. Dyspnea, Edema, Lt Headedness, Other Focused Exam Lactate Level 01/04/20 11:40: Lactic Acid Level 0.62 Objective-Cardiology Exam Last Set of Vital Signs Vital Signs 01/07/20 01/07/20 07:43 09:23 Temp 36.8 Pulse 76 Resp 20 B/P (MAP) 190/78 (115) Pulse Ox 97 O2 Delivery Room Air Capillary Refill : Less Than 3 Seconds I&O Intake and Output 01/07/20 00:00 Intake Total 2489.8 ml Output Total 925 ml Balance 1564.8 ml Intake Oral 1475 ml IV Total 1014.8 ml Output Urine Total 925 ml # Voids 2 # Bowel Movements 2 General: Alert, Oriented X3, Cooperative, No Acute Distress HEENT: Atraumatic Neck: Supple, No JVD Lungs: Clear to Auscultation, Normal Air Movement Heart: Regular Rate, Normal S1, Normal S2 Abdomen: Normal Bowel Sounds, No Tenderness Extremities: No Clubbing, No Cyanosis Skin: No Rashes Neuro: Normal Speech, Sensation Intact Psych/Mental Status: Mental Status NL A/P-Cardiology Admission Diagnosis Change in mental status Coronary artery disease Hypertension UTI Assessment/Plan Status post change in mental status, better today, back to baseline. Urinary tract infection with sepsis, improving, managed by medical team. Labile hypertension, under control at this time, still mildly elevated, adding clonidine with parameters to hold for systolic blood pressure less than 120, continue on hydralazine every 8 hours, Lopressor twice a day and amlodipine Anemia, cold agglutinin disease, received blood transfusion with warm blood, continue to monitor H/H. Dr. Tucker following. Mild elevation in troponin, subtle abnormality, known to have stent in the LAD, last workup was done in March 2013 showing patent stent in the proximal VG with mild in-stent restenosis, mild to moderate disease in the mid LAD and mid circumflex artery. Had an abnormal stress test in the past and has been refusing cardiac catheterization. Continue with conservative management at this time. Chest pain, generalized body ache, history of hkoc-ei-ibextwap coronary artery disease, no further episodes of chest pain were reported. Continue to monitor Dyspnea, history of bronchial asthma, history of C Pap use, normoactive shortness of breath noted that this time History of gastroesophageal reflux disease, esophagitis, mild dysphagia, e sophageal spasm, managed by primary care team History of hyperlipidemia, monitor lipids Moderate carotid stenosis tortuous carotids by ultrasound, continue to monitor Acute on chronic renal failure, improving slowly, continue to monitor. Back pain, currently on Baclofen TID Clinical Quality Measures DVT/VTE Risk/Contraindication: Risk Factor Score Per Nursin RFS Level Per Nursing on Admit: 4+=Very High ELO HOLBROOK MD Jan 07, 2020 10:23
[2020-01-07] MEDS ORDERED: cloNIDine 0.1 MG (CATAPRES) TAB PO SCH (10:30)
[2020-01-07 11:17] VITALS: BP 151/64
[2020-01-07] MEDS ORDERED: RISP0.253 PO (12:28)
[2020-01-07] MEDS ORDERED: CLON0.1T PO (12:28)
[2020-01-07] MEDS ORDERED: HYDR-3923 PO (12:28)
[2020-01-07] MEDS ORDERED: AMLO5TAB9 PO (12:28)
[2020-01-07] MEDS ORDERED: METO-333 PO (12:28)
[2020-01-07] MEDS ORDERED: DONE5TAB8 PO (12:31)
--- NOTE | 2020-01-07 12:35 | NUR ---
PT BLADDER SCANNED PER ORDER, POST VOID RESIDUAL 32ML.
--- NOTE | 2020-01-07 12:45 | Discharge Summary ---
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 Coronary artery disease Pseudogout Urinary tract infection with a history of urinary retention Anemia chronic disease Chronic renal insufficiency (1) AMS (altered mental status) (2) UTI (urinary tract infection) (3) History of coronary artery stent placement Status: Chronic (4) Chronic anemia Status: Chronic (5) Chronic renal insufficiency Status: Chronic (6) Debility (7) Situational anxiety Status: Acute (8) Radiculopathy (9) Neuropathy Status: Acute (10) Hyperlipidemia Status: Chronic (11) Gastritis Status: Acute (12) Dysphagia (13) CAD (coronary artery disease) (14) Gout Status: Chronic (15) COPD (chronic obstructive pulmonary disease) Status: Chronic (16) Sepsis Status: Acute (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 Discharge Summary Discharge Physical Exam Allergies: Coded Allergies: codeine (Verified Allergy, Mild, 12/25/19) Vitals & I&Os Vital Signs Date Time Temp Pulse Resp B/P (MAP) Pulse Ox O2 Delivery O2 Flow Rate FiO2 01/07/20 11:17 37.2 71 24 151/64 (93) 94 Room Air 01/04/20 16:00 2.00 General Appearance: No Apparent Distress, WD/WN HEENT: Other Respiratory: Chest Non Tender, Lungs Clear, Normal Breath Sounds, No Accessory Muscle Use, No Respiratory Distress Cardiovascular: Regular Rate, Rhythm, No Gallop, Normal Peripheral Pulses Gastrointestinal: Normal Bowel Sounds, Non Tender, Soft Extremity: Normal Capillary Refill, Non Tender, No Calf Tenderness Skin: Normal Color, Warm/Dry Neurologic/Psychiatric: Alert, Normal Mood/Affect, Disoriented Hospital Course Was the Problem List Reviewed?: Yes This is an 89-year-old white female who was admitted to the ICU with confusion. She continued to have sundowning throughout the hospitalization and disorientation. She had severe recalcitrant hypertension that was slow to control. It was felt that she was having some hypertensive encephalopathy as well as medication reaction and vascular dementia. She did have a urinary tract infection with enterococcus that was treated with ampicillin. At the time of discharge the patient's post void residual is 32 mL after removal of her catheter. She is being discharged with [facility] per comfort care. Labs (last 24 hrs) Microbiology 01/04/20 Blood Culture - Preliminary, Resulted No growth Patient resulted labs reviewed. Imaging: Reviewed Imaging Report Discussion & Recommendations Discharge Planning: >30 minutes discharge planning Discharge Home Medications: Active Scripts Active Aricept (Donepezil HCl) 5 Mg Tablet 5 Mg PO HS 30 Days Risperidone 0.25 Mg Tablet 0.5 Mg PO BID 30 Days Amlodipine Besylate 5 Mg Tablet 10 Mg PO DAILY 30 Days Metoprolol Tartrate 25 Mg Tablet 25 Mg PO BID 30 Days Hydralazine HCl 25 Mg Tablet 25 Mg PO Q8HR 30 Days Clonidine HCl 0.1 Mg Tablet 0.1 Mg PO BID 30 Days Lorazepam 2 Mg/1 Ml Oral.conc 0.5 Mg PO Q4H Sucralfate 1 Gm Tablet 1 Gm PO ACHS Morphine Conc. 20mg/ml (Morphine Sulfate) 100 Mg/5 Ml Solution 5 Mg PO Q4H PRN Baclofen 10 Mg Tablet 5 Mg PO TID Flomax (Tamsulosin HCl) 0.4 Mg Cap 0.4 Mg PO DAILY@1800 Reported Hydroxyzine HCl 25 Mg Tablet 25 Mg PO Q6H PRN Alprazolam 0.25 Mg Tablet 0.25 Mg PO TID PRN Montelukast Sodium 10 Mg Tablet 10 Mg PO HS Trelegy Ellipta 100-62.5-25 (Fluticasone/Umeclidin/Vilanter) 1 Each Blst.w.dev 1 Puff INH DAILY Ventolin Hfa (Albuterol Sulfate) 18 Gm Hfa.aer.ad 2 Puff INH Q4H PRN Pantoprazole Sodium 40 Mg Tablet.dr 40 Mg PO DAILY Salonpas Patch (Methyl Salicylate/Menthol) 1 Each Adh..patch 1 Patch TP HS Ondansetron Odt (Ondansetron) 4 Mg Tab.rapdis 4 Mg PO Q4H PRN Tramadol HCl 50 Mg Tablet 50 Mg PO Q4H PRN Hydrocodone-Acetamin 5-325 mg (Hydrocodone/Acetaminophen) 1 Each Tablet 1 Tab PO BID PRN Fexofenadine HCl 180 Mg Tablet 180 Mg PO DAILY PRN Acid News Clerk (RANITIDINE) (Ranitidine HCl) 150 Mg Tablet 150 Mg PO BID PRN Pravastatin Sodium 20 Mg Tablet 20 Mg PO DAILY Losartan Potassium 50 Mg Tablet 50 Mg PO DAILY Aspirin EC (Aspirin) 81 Mg Tablet.dr 81 Mg PO DAILY Amlodipine Besylate 5 Mg Tablet 7.5 Mg PO DAILY TAKES 1 & 1/2 (5MG) TABLET Condition at discharge Stable Instructions to patient/family Please see electronic discharge instructions given to patient. Clinical Quality Measures End of Life/Advance Care Plan: Advance Care discuss with: family member (s) End of Life Care: Hospice (Hospital) Plan: identified end-of-life goals DVT/VTE Risk/Contraindication: Risk Factor Score Per Nursin RFS Level Per Nursing on Admit: 4+=Very High Copy Copies To 1: HALLE DEJESUS DO Problem Qualifiers (1) AMS (altered mental status): Altered mental status type: delirium Qualified Codes: R41.0 - Disorientation, unspecified FLAKONESSLUKAS MD Jan 07, 2020 12:45
--- NOTE | 2020-01-07 13:12 | NUR ---
MINDY FISHER demonstrates understanding of discharge instructions and accurately returns instructions upon questioning. Copy of Post-Discharge Instructions and Medication Discharge Instructions given to PT AND FAMILY. MINDY FISHER is able to manage continuing needs after discharge. Patients belongings returned to PT AND FAMILY. Skin dry and intact; no breakdown noted. Patient discharged from 429-1 on at 1312. MINDY FISHER left floor via WC, accompanied by STAFF AND FAMILY.
[2020-01-07 13:13] VITALS: BP 151/64
--- NOTE | 2020-01-09 12:15 | Physician Query Clarification ---
PQ-Further Specificity Admission/Discharge Admission Date: Jan 04, 2020 at 10:30 Discharge Date: Jan 07, 2020 at 13:12 The medical record reflects the following clinical scenario: History/Risk Factors: [list no more than 2] Clinical Findings: [list no more than 2] Treatment: [list no more than 2] Question: Can you further specify [diagnosis/condition] per the clinical indicators above? Please document a response in the Progress Notes or Discharge Summary. 1. [list the #1 diagnosis/condition choice] 2. [list the diagnosis/condition already documented] 3. Other, with explanation of the clinical findings. 4. Clinically undetermined, no explanation for the clinical findings. Please remember a lack of response to the above will prompt a phone page by CDI/Coding staff. In responding to this query, please exercise your independent professional ju dgment. The purpose of this communication is to more accurately reflect the complexity of your patients condition. The fact that a question is asked does not imply that any particular answer is desired or expected. Thank you for your timely response to this clarification. Requestors name: [ ] Phone # [ ] THIS PHYSICIAN QUERY FORM IS A PERMANENT PART OF THE MEDICAL RECORD TOPHER PANIAGUA Jan 09, 2020 12:15
== END 2020-01-07 13:12 | disposition hospice, home (50) | DRG 78 ==
LOC: ICU 10:30 → 4TH 01-06 10:43
PROVIDERS: ADMIT Internal Medicine; ATTEND Internal Medicine
DX: I67.4 Hypertensive encephalopathy (principal); I12.9 Hypertensive chronic kidney disease with stage 1 through stage 4 chronic kidney disease, or unspecified chronic kidney disease; N18.9 Chronic kidney disease, unspecified; N39.0 Urinary tract infection, site not specified; B95.2 Enterococcus as the cause of diseases classified elsewhere; F01.50 Vascular dementia, unspecified severity, without behavioral disturbance, psychotic disturbance, mood disturbance, and anxiety; R41.0 Disorientation, unspecified; R25.1 Tremor, unspecified; Z66 Do not resuscitate; F44.5 Conversion disorder with seizures or convulsions; J44.9 Chronic obstructive pulmonary disease, unspecified; K21.9 Gastro-esophageal reflux disease without esophagitis; D63.8 Anemia in other chronic diseases classified elsewhere; I25.10 Atherosclerotic heart disease of native coronary artery without angina pectoris; M47.9 Spondylosis, unspecified; M10.9 Gout, unspecified; F41.1 Generalized anxiety disorder; G62.9 Polyneuropathy, unspecified; R13.10 Dysphagia, unspecified
CPT/HCPCS: 36415; 70450; 71045; 74018; 80048; 80053; 80061; 81000; 82140; 83605; 83735; 84100; 84484; 85025; 85027; 85610; 85730; 87040; 94640; 94760

== ENCOUNTER → 2020-02-21 | Outpatient (CLI) | payer MEDICARE ==
[~2020-02-21] MED LIST changes: +ACHD5005 PO; +CLON0.1T PO; +DONE5TAB8 PO; -HYDR-3812 PO; +HYDR-3923 PO; +METO-333 PO; -MONT10TA24 PO; +MONT10TA26 PO; +RISP0.253 PO
[2020-02-21 15:31] LABS: BILIRUBIN,URINE NEGATIVE (NEGATIVE); CLARITY,URINE CLEAR; COLOR,URINE YELLOW; GLUCOSE, URINE (UA) NEGATIVE (NEGATIVE); KETONES,URINE NEGATIVE (NEGATIVE); LEUKOCYTE ESTERASE ,URINE NEGATIVE (NEGATIVE); NITRITE,URINE NEGATIVE (NEGATIVE); PH,URINE 5.5 (5-9); PROTEIN,URINE TRACE (NEGATIVE)
[2020-02-21 15:39] LABS: BACTERIA,URINE FEW /HPF; RBC,URINE 0-2 /HPF; RENAL EPITHELIAL CELLS,URINE 0-2 /HPF
[2020-02-21 15:40] LABS: HYALINE CASTS, URINE 0-2 /LPF
== END ==
LOC: HOSHH 15:25
PROVIDERS: ATTEND Internal Medicine
DX: R30.0 Dysuria (principal)
CPT/HCPCS: 81000; 87088

== ENCOUNTER → 2020-03-19 | Outpatient (CLI) | payer MEDICARE ==
[2020-03-19 13:04] LABS: BASOPHILS % (AUTO) 0 % (0-10); EOSINOPHILS # (AUTO) 0.3 10^3/uL (0.0-0.3); EOSINOPHILS % (AUTO) 2 % (0-10); HEMATOCRIT 25 % (35-52); HEMOGLOBIN 7.5 G/DL (11.5-16.0); LYMPHOCYTES # (AUTO) 1.9 X 10^3 (1.0-4.0); LYMPHOCYTES % (AUTO) 17 % (12-44); MEAN CORPUSCULAR HEMOGLOBIN 25 PG (25-34); MEAN CORPUSCULAR HGB CONC 30 G/DL (32-36); MEAN CORPUSCULAR VOLUME 83 FL (80-99); MEAN PLATELET VOLUME 9.7 FL (7.4-10.4); MONOCYTES # (AUTO) 0.8 X 10^3 (0.0-1.0); MONOCYTES % (AUTO) 7 % (0-12); NEUTROPHILS # (AUTO) 8.4 X 10^3 (1.8-7.8); NEUTROPHILS % (AUTO) 74 % (42-75); PLATELET COUNT 436 10^3/uL (130-400); RED CELL DISTRIBUTION WIDTH 16.2 % (10.0-14.5); WHITE BLOOD COUNT 11.4 10^3/uL (4.3-11.0)
== END ==
LOC: HOSHH 12:59
PROVIDERS: ATTEND Internal Medicine Hematology & Oncology
DX: D64.9 Anemia, unspecified (principal)
CPT/HCPCS: 85025

== ENCOUNTER → 2020-04-02 | Outpatient (CLI) | payer OTHER, MEDICARE ==
[2020-04-02 13:48] LABS: BASOPHILS % (AUTO) 1 % (0-10); EOSINOPHILS # (AUTO) 0.2 10^3/uL (0.0-0.3); EOSINOPHILS % (AUTO) 3 % (0-10); HEMATOCRIT 25 % (35-52); HEMOGLOBIN 7.6 G/DL (11.5-16.0); LYMPHOCYTES # (AUTO) 2.5 X 10^3 (1.0-4.0); LYMPHOCYTES % (AUTO) 35 % (12-44); MEAN CORPUSCULAR HEMOGLOBIN 26 PG (25-34); MEAN CORPUSCULAR HGB CONC 31 G/DL (32-36); MEAN CORPUSCULAR VOLUME 83 FL (80-99); MEAN PLATELET VOLUME 10.1 FL (7.4-10.4); MONOCYTES # (AUTO) 0.6 X 10^3 (0.0-1.0); MONOCYTES % (AUTO) 8 % (0-12); NEUTROPHILS # (AUTO) 3.8 X 10^3 (1.8-7.8); NEUTROPHILS % (AUTO) 53 % (42-75); PLATELET COUNT 490 10^3/uL (130-400); RED CELL DISTRIBUTION WIDTH 17.5 % (10.0-14.5); WHITE BLOOD COUNT 7.1 10^3/uL (4.3-11.0)
== END ==
LOC: HOSHH 13:38
PROVIDERS: ATTEND Internal Medicine
DX: D64.9 Anemia, unspecified (principal)
CPT/HCPCS: 85025

== ENCOUNTER → 2020-05-27 | Outpatient (CLI) | payer OTHER, MEDICARE ==
[2020-05-27 12:04] LABS: ALBUMIN 3.9 GM/DL (3.2-4.5)
[2020-05-27 12:05] LABS: POTASSIUM 6.2 MMOL/L (3.6-5.0)
[2020-05-27 12:06] LABS: CALCIUM 8.8 MG/DL (8.5-10.1)
[2020-05-27 12:09] LABS: BILIRUBIN,TOTAL 0.4 MG/DL (0.1-1.0)
[2020-05-27 12:10] LABS: CREATININE SERUM 1.85 MG/DL (0.60-1.30)
== END ==
LOC: LABNPT 11:51
PROVIDERS: ATTEND Internal Medicine
DX: I67.4 Hypertensive encephalopathy (principal); E03.9 Hypothyroidism, unspecified; A41.51 Sepsis due to Escherichia coli [E. coli]; N17.9 Acute kidney failure, unspecified; D59.1 Other autoimmune hemolytic anemias; I10 Essential (primary) hypertension
CPT/HCPCS: 80053; 84443

== ENCOUNTER → 2020-05-27 | Outpatient (CLI) | payer OTHER, MEDICARE ==
[2020-05-27 11:59] LABS: BASOPHILS % (AUTO) 1 % (0-10); EOSINOPHILS # (AUTO) 0.2 10^3/uL (0.0-0.3); EOSINOPHILS % (AUTO) 3 % (0-10); HEMATOCRIT 23 % (35-52); HEMOGLOBIN 7.8 G/DL (11.5-16.0); LYMPHOCYTES # (AUTO) 2.2 X 10^3 (1.0-4.0); LYMPHOCYTES % (AUTO) 35 % (12-44); MEAN CORPUSCULAR HEMOGLOBIN 30 PG (25-34); MEAN CORPUSCULAR HGB CONC 34 G/DL (32-36); MEAN CORPUSCULAR VOLUME 90 FL (80-99); MEAN PLATELET VOLUME 11.2 FL (7.4-10.4); MONOCYTES # (AUTO) 0.4 X 10^3 (0.0-1.0); MONOCYTES % (AUTO) 7 % (0-12); NEUTROPHILS # (AUTO) 3.5 X 10^3 (1.8-7.8); NEUTROPHILS % (AUTO) 55 % (42-75); PLATELET COUNT 361 10^3/uL (130-400); RED CELL DISTRIBUTION WIDTH 21.8 % (10.0-14.5); WHITE BLOOD COUNT 6.3 10^3/uL (4.3-11.0)
== END ==
LOC: LABNPT 11:48
PROVIDERS: ATTEND Internal Medicine
DX: Z01.89 Encounter for other specified special examinations (principal)
CPT/HCPCS: 85025

== ENCOUNTER → 2020-06-24 | Outpatient (CLI) | payer OTHER, MEDICARE ==
[2020-06-24 16:42] LABS: BILIRUBIN,URINE NEGATIVE (NEGATIVE); CLARITY,URINE CLEAR; COLOR,URINE YELLOW; GLUCOSE, URINE (UA) NEGATIVE (NEGATIVE); KETONES,URINE NEGATIVE (NEGATIVE); LEUKOCYTE ESTERASE ,URINE NEGATIVE (NEGATIVE); NITRITE,URINE NEGATIVE (NEGATIVE); PROTEIN,URINE TRACE (NEGATIVE)
[2020-06-24 16:48] LABS: BACTERIA,URINE TRACE /HPF; SQUAMOUS EPITHELIAL CELL,UR RARE /HPF; WBC,URINE 0-2 /HPF
== END ==
LOC: LABNPT 16:31 → MERGE 16:31
PROVIDERS: ATTEND Internal Medicine
DX: Z01.89 Encounter for other specified special examinations (principal)
CPT/HCPCS: 81000

== ENCOUNTER → 2020-07-04 | Outpatient (CLI) | payer OTHER, MEDICARE ==
[2020-07-04 09:39] LABS: BASOPHILS % (AUTO) 1 % (0-10); EOSINOPHILS # (AUTO) 0.3 10^3/uL (0.0-0.3); EOSINOPHILS % (AUTO) 4 % (0-10); HEMATOCRIT 28 % (35-52); HEMOGLOBIN 8.6 G/DL (11.5-16.0); LYMPHOCYTES # (AUTO) 2.8 X 10^3 (1.0-4.0); LYMPHOCYTES % (AUTO) 39 % (12-44); MEAN CORPUSCULAR HEMOGLOBIN 26 PG (25-34); MEAN CORPUSCULAR HGB CONC 31 G/DL (32-36); MEAN CORPUSCULAR VOLUME 84 FL (80-99); MEAN PLATELET VOLUME 10.5 FL (7.4-10.4); MONOCYTES # (AUTO) 0.5 X 10^3 (0.0-1.0); MONOCYTES % (AUTO) 7 % (0-12); NEUTROPHILS # (AUTO) 3.6 X 10^3 (1.8-7.8); NEUTROPHILS % (AUTO) 50 % (42-75); PLATELET COUNT 306 10^3/uL (130-400); WHITE BLOOD COUNT 7.2 10^3/uL (4.3-11.0)
[2020-07-04 09:57] LABS: ALBUMIN 3.6 GM/DL (3.2-4.5); BILIRUBIN,TOTAL 0.4 MG/DL (0.1-1.0); CALCIUM 8.7 MG/DL (8.5-10.1); CREATININE SERUM 1.84 MG/DL (0.60-1.30); POTASSIUM 5.2 MMOL/L (3.6-5.0); TOTAL PROTEIN 6.8 GM/DL (6.4-8.2)
[2020-07-04 10:17] LABS: FREE T4 (FREE THYROXINE) 0.8 NG/DL (0.70-1.48)
== END ==
LOC: HOSHH 09:34
PROVIDERS: ATTEND Internal Medicine
DX: I67.4 Hypertensive encephalopathy (principal); N19 Unspecified kidney failure; I10 Essential (primary) hypertension; D59.9 Acquired hemolytic anemia, unspecified; G40.89 Other seizures
CPT/HCPCS: 80053; 84439; 84443; 85025